=== PATIENT | male | born 1935 | race Caucasian/White ===

== ENCOUNTER 2018-02-17 15:22 | Observation (INO) | payer MEDICARE, SELFPAY ==
[2018-02-17] VITALS (12 sets, daily range): BP systolic 134–183; BP diastolic 54–73; PULSE 48–63; RESP 17–28; TEMP 36.7–37.5; O2SAT 94–100; BMI 25.2; BMI 23.9
--- NOTE | 2018-02-17 15:46 | EKG12_ITS ---
Test Reason : Blood Pressure : / mmHG Vent. Rate : 052 BPM Atrial Rate : 052 BPM P-R Int : 202 ms QRS Dur : 108 ms QT Int : 448 ms P-R-T Axes : 073 055 071 degrees QTc Int : 416 ms Sinus bradycardia with occasional Premature ventricular complexes Otherwise normal ECG Confirmed by BROCK GONZALEZ, YOLANDA ([id number]), supervising editor trailer JYOTI NIELSEN ([id number]) on 02/21/2018 1:17:04 PM Referred By: IKER/PAMELA Confirmed By:YOLANDA GUTIÉRREZ MD
--- NOTE | 2018-02-17 15:48 | ED.VISSUMM ---
- ER Visit Summary Date of Service: 02/17/18 Chief Complaint: Fatigue and generalized weakness History of Present Illness: The patient is a 82 M presenting with fatigue and generalized weakness. Patient states is been ongoing for the past 2 weeks but progressively worsening. He was seen by his primary care physician today who sent him to the ED for further evaluation. He complains of generalized weakness and fatigue. He has had decreased appetite. Denies nausea or vomiting. Admits to diarrhea with no blood in his stool. He admits to shortness of breath and nonproductive cough. Denies fever. Denies chest pain. He complains of lightheadedness with no syncope. No other complaints. Physical Examination: Vitals are stable. Heart rate 40s-50s. Patient is afebrile. Alert no acute distress. HEENT exam is unremarkable. Neck is supple. Lungs are clear and equal bilaterally. Heart is regular and bradycardic Abdomen is soft nontender nondistended. Extremities are unremarkable. Skin is warm and dry. No focal neurologic deficit. Remainder of exam is unremarkable. Emergency Department Course and Treatment: EKG sinus bradycardia rate of 52. Chest x-ray shows mild interstitial edema. CBC shows white count 2.0, hemoglobin 12.2, platelet 129. BUN 25, creatinine 1.34. Troponin is negative. Lactic acid is normal. Patient has dizziness along with heart rates in the 40s-50s. Discussed with the hospitalist for admission. Disposition: Admission Impression: Symptomatic bradycardia This note was generated with [employer] dictation software. It may contain incorrect words, spelling, and punctuation that were not noted in review of the chart prior to signing ED Disposition - Plan for ED Patient: Chief Complaint: General Illness Referrals: Jason Snider MD [Primary Care Provider] -
--- NOTE | 2018-02-17 15:50 | RAD_ITS ---
STUDY: X-RAY CHEST REASON FOR EXAM: Male, 82 years old. Fatigue and shortness of breath TECHNIQUE: AP portable COMPARISON: May 04, 2014 FINDINGS: There appears to be very mild pulmonary interstitial edema. There is asymmetrically increased density in the lower lobes possibly representing coexistent atelectasis or infiltrates. There is no demonstrated pleural abnormality. Heart is enlarged. Normal mediastinum and lul. Normal visualized pulmonary arteries. Normal visualized aortic arch and descending thoracic aorta. Postop change status post median sternotomy and CABG. Normal visualized thoracic spine. Normal visualized ribs, clavicles, and shoulders. There is no demonstrated abnormality of the visualized soft tissue structures of the upper abdomen. RAD/Chest 1 View (Portable) IMPRESSION: Findings suggestive of mild pulmonary interstitial edema. Cannot exclude bibasilar atelectasis or infiltrates Electronically Signed: Juan Rodarte MD at 16:28 EDT , Service support ,
[2018-02-17 16:18] LABS: Bacteria 0 SEEN /hpf (None Seen); Mucous, Urine 0 SEEN /hpf (<or=2+); White Blood Cells 0 SEEN /hpf (0-5)
[2018-02-17 16:22] LABS: Absolute Lymphocyte Count 0.48 X10^3/ul (0.83-4.51); Basophil# 0.01 X10^3/uL; Basophil% 0.5 % (0-1); Eosinophil# 0.09 X10^3/uL; Eosinophils% 4.5 % (0-5); Hematocrit 37.8 % (40-54); Hemoglobin 12.2 g/dl (13.0-16.5); Lymphocyte # 0.48 X10^3/ul (4.0); Lymphocyte % 23.8 % (19-41); Mean Corp Hgb Conc 32.3 g/gl (32-36); Mean Corpuscular Volume 95.9 fL (80-94); Mean Platelet Vol. 9.6 fl (6.2-12.0); Monocyte# 0.43 X10^3/uL; Monocyte% 21.3 % (0-10); Neutrophil # 1.01 X10^3/uL (2.7-7.7); Neutrophil % 49.9 % (47-70); Platelet Count 129 K/mm3 (150-450); RBC Distribution Width CV 13.8 % (11.6-14.6); RBC Distribution Width SD 46.3 fl (35.1-43.9); Red Blood Count 3.94 M/mm3 (4.6-6.2)
[2018-02-17 16:26] LABS: Color, Urine Yellow (Yellow); Glucose, Dipstick Normal (Normal); Ketone-Dipstick Negative (Negative); Leukocyte Esterase-Dipstick Negative /ul (Negative); Nitrite-Dipstick Negative (Negative); Occult Blood-Urine 10 /ul (Negative); Protein-Dipstick 30 mg/dl (Negative); Urine Bilirubin Dipstick Negative (Negative); Urine Clarity Sl. Cloudy (Clear); Urine Urobilinogen Normal (Normal)
[2018-02-17 16:29] LABS: Anion Gap 6 (5-15); BUN 25 mg/dL (7-18); BUN/Creat Ratio 18.7 RATIO (10-20); Calcium,Total 8.5 mg/dL (8.5-10.1); Chloride 105 mmol/L (98-107); Creatinine, Serum 1.34 mg/dL (0.70-1.30); EST Glomerular Filtration Rate 54 mL/min (>60); Est Glom Filt Rate - Afr Amer 66 mL/min (>60); Estimated Creatinine Clearance 45.27 ml/min; Glucose 95 mg/dL (74-106); Lactic Acid 1.2 mmol/L (0.4-2.0); Sodium Level 139 mmol/L (136-145)
[2018-02-17 16:30] LABS: Differential Indicated SCAN CRITERIA MET; POSITIVE COUNT NO; POSITIVE DIFFERENTIAL YES; POSITIVE MORPHOLOGY NO
[2018-02-17 16:47] LABS: Red Blood Cells-Urine 0-5 SEEN /hpf (0-5); Squamous Epithelial Cells - UA 0-5 SEEN /hpf (0-5)
[2018-02-17 16:51] LABS: Differential Comment SCANNED
--- NOTE | 2018-02-17 17:37 | PCM.HP.STD ---
Problem List (1) Prediabetes Status: Chronic (2) Hypothyroidism Status: Chronic (3) Chronic gout Status: Chronic (4) Psoriasis Status: Chronic (5) BPH (benign prostatic hyperplasia) Status: Chronic (6) Benign essential HTN Status: Chronic History of Present Illness Date of Admission: 02/17/18 Chief Complaint: Weakness, dyspnea on exertion. The patient is a 82 year old M who presents to the emergency room with generalized weakness and dyspnea on exertion. He presented to [facility] urgent care earlier today and was told he might have pneumonia. His heart rate was also noted to be in the 40s and his conductor and engineer Dr. Briscoe was made aware who referred patient to [facility] emergency room. Patient states he is very active and is typically able to walk a significant distance without any shortness of breath. He denies chest pain. States he has an occasional cough. He also notes a recent increase in headaches. Denies fever, chills. Denies numbness, tingling. Denies other associated symptoms. As previously noted, patient sees Dr. Jane, [facility] cardiology. He has a history of CAD s/p CABG in the and stent placement early 1999. He states he had a normal stress test last summer. His other past medical history includes hypertension, BPH, psoriatic arthritis, gout, hypothyroidism, reported prediabetes, status post bilateral carotid enterectomy, hyperlipidemia, GERD. Past Medical History Past Medical History (Chronic Problems): Chronic Problems Prediabetes (Chronic) Hypothyroidism (Chronic) Chronic gout (Chronic) Psoriasis (Chronic) BPH (benign prostatic hyperplasia) (Chronic) Benign essential HTN (Chronic) Allergies hyoscyamine [Hyoscyamine] Allergy (Verified 02/17/18 15:23) Other metronidazole Allergy (Verified 02/17/18 15:23) Unknown sesame oil Allergy (Verified 02/17/18 15:23) Other Sulfa (Sulfonamide Antibiotics) Allergy (Verified 02/17/18 15:23) Other sulfamethoxazole [From Bactrim] Allergy (Verified 02/17/18 15:23) Other tree nut [Tree Nut] Allergy (Verified 02/17/18 15:23) Other trimethoprim [From Bactrim] Allergy (Verified 02/17/18 15:23) Other CATS Allergy (Uncoded 04/30/14 10:09) Rash HAYFEVER Allergy (Uncoded 04/30/14 10:09) Other Home Medications: Ambulatory Orders Medication Instructions Recorded Allopurinol [Zyloprim] 300 mg PO DAILY 04/30/14 Aspirin [Aspirin, Baby] 81 mg PO DAILY@0800 04/30/14 Clopidogrel Bisulfate [Plavix] 75 mg PO DAILY 04/30/14 Famotidine [Pepcid] 20 mg PO DAILY 04/30/14 Finasteride [Proscar] 5 mg PO DAILY 04/30/14 Gabapentin [Neurontin] 300 mg PO DAILY 04/30/14 Levothyroxine Sodium [Levoxyl] 150 mcg PO DAILY 04/30/14 Lisinopril [Zestril] 20 mg PO DAILY 04/30/14 Loratadine [Claritin] 10 mg PO DAILY 04/30/14 Methotrexate 7.5 mg PO Q7D 04/30/14 Multivitamins,Therapeutic 1 tablet PO DAILY 04/30/14 [Multivitamin] [place]-3 Fatty Acids/Fish Oil [Fish 1 each PO DAILY 04/30/14 Oil 1,000 mg Capsule] Pravastatin [Pravachol] 40 mg PO QHS 04/30/14 Tamsulosin HCl [Flomax] 0.4 mg PO DAILY 04/30/14 Donepezil HCl [Aricept] 10 mg PO QHS 02/17/18 Fluticasone 0.05% [Flonase Nasal 2 spray NASAL DAILY 02/17/18 [place]] Nitroglycerin [Nitrostat] 0.4 mg SUBLINGUAL Q5M PRN 02/17/18 Polyethylene Glycol 3350 [Miralax] 17 gm PO DAILY PRN 02/17/18 Vits A,C,E/Lutein/Minerals 1 each PO 02/17/18 [Ocuvite with Lutein Tablet] Surgical History: angioplasty, coronary bypass surgery, tonsillectomy, TURP, - - Total right knee. Psychiatric History: No pertinent psych hx Lives: Spouse/ Significant Other Smoking Status: Never smoker Alcohol: None Drugs: None - *Family History Paternal History Items: Diabetes, Heart Disease Maternal History Items: No pertinent history Review of Systems Constitutional: Denies: Chills, Fever, Weight Change HEENT: Denies: Head Aches, Sinus Congestion, Sinus Drainage Cardiovascular: Denies: Chest Pain, Edema, Light Headedness, Palpitations, Syncope Respiratory: Reports: Cough, Shortness of breath upon exertion. Denies: Sputum production, Wheezing Gastrointestinal: Denies: Abdominal Pain, Nausea, Vomiting Genitourinary: Denies: Dysuria Musculoskeletal: Denies: Joint Pain, Joint Tenderness Skin: Denies: Rash, Wounds Neurological: Denies: Numbness, Tingling, Focal weakness Psychiatric: Denies: Anxiety, Depression, Homicidal Ideations, Suicidal Ideations Hematologic/ Lymphatic: Denies: Easy Bruising, Easy Bleeding VTE Information - Inpt Only VTE Present on Admission: No VTE Mechan Device Prophylaxis: SCD's VTE Pharm Prophylaxis ordered?: Yes - Physical Exam General: Alert, Oriented x3, Cooperative, No apparent distress HEENT: Atraumatic, PERRLA, EOMI, Normocephalic Neck: Supple, No JVD, Negative Carotid Bruits Lungs: Diminished, - - Crackles Cardiovascular: Regular Rhythm, Normal S1, Normal S2, No murmurs, Bradycardic Abdomen: Bowel Sounds Present, Soft, Non Tender, Non-Distended Extremities: No clubbing, No cyanosis, No edema, Capillary Refill Less than 3 Seconds Skin: No rashes, No breakdown Musculoskeletal: No Tenderness to Palpation of Joints or Extremities Neurological: Cranial nerves II-XII grossly intact, Neuro grossly intact Psych/Mental Status: Normal Affect, Appropriate Vital Signs Temp Pulse Resp BP Pulse Ox 98.1 F 53 L 27 H 164/72 H 96 02/17/18 17:18 02/17/18 17:18 02/17/18 17:18 02/17/18 17:18 02/17/18 17:18 Assessment/Plan 1. Generalized weakness/dyspnea on exertion-etiology unclear. Urinalysis unremarkable. Patient shows signs of mild dehydration. Gentle IV fluids. Troponin negative ?1. PT/OT. Obtain echocardiogram. Order nuclear stress test. 2. Bradycardia-unsure if presenting symptoms are related to bradycardia. Patient denies chest pain. Monitor telemetry. Trend enzymes. Stress test. Complete echocardiogram. 3. CAD status post CABG and PCI-follows with Dr. Jane, [facility]. Continue aspirin, statin, Plavix. 4. Mild elevated creatinine-creatinine 1.3 which appears to be patient's baseline. Gentle IV fluids. Monitor BMP. 5. Hypertension-elevated on admission, continue home lisinopril regimen. Continue to monitor. 6. Hyperlipidemia-continue statin. 7. BPH-continue home Flomax, Proscar regimen. 8. Hypothyroidism-continue home Synthroid regimen. Check TSH. 9. Status post bilateral carotid enterectomy-follows with Dr. Guevara as outpatient. Complete sincerely carotid duplex ultrasound. 10. Psoriatic arthritis-continue methotrexate. 11. GERD-continue famotidine. 12. Gout-continue home allopurinol regimen. 13. Reported prediabetes-no previous hemoglobin A1c documented. Check hemoglobin A1c. 14. Mild cognitive impairment-continue Aricept regimen. 15. Pulmonary fibrosis-as noted on prior CT April 2017. Follows with Dr. Mari as outpatient. Not on home inhaler regimen. Consult pulmonary. 16. Pancytopenia-etiology unclear. Monitor CBC. DVT prophylaxis-SCDs, heparin subcu. This patient was seen by BRIANDA Justice under the supervision of Dr. Crabtree.
--- NOTE | 2018-02-17 18:00 | ECHOD_ITS ---
Reason For Study: DYSPNEA/SOB Procedure This was a 2D Doppler, Color Flow transthoracic echocardiogram. Exam performed portable in patient room. Left Ventricle Normal LV size. Left ventricular systolic function is normal. The estimated ejection fraction is 60 %. No evidence for diastolic dysfunction. No regional wall motion abnormalities noted. Right Ventricle Normal RV size. Normal systolic function. Atria Normal left atrium. Normal right atrium. Mitral Valve Normal mitral valve. Mild (1+) eccentric mitral valve insufficiency. Tricuspid Valve Normal tricuspid valve. Mild (1+) tricuspid valve insufficiency. Pulmonary artery systolic pressure is 43 mmHg. Mild pulmonary hypertension. Aortic Valve Trisinus/trileaflet aortic valve. Mild focal aortic valve thickening. Pulmonic Valve Normal pulmonic valve. Great Vessels Normal aortic root. The pulmonary artery is normal size. Normal inferior vena cava. Pericardium/Pleural No pericardial effusion. MMode/2D Measurements & Calculations LVIDd: 5.1 cm IVSd: 1.1 cm LVOT diam: 2.0 cm LVIDs: 3.6 cm LVPWd: 1.1 cm LVOT area: 3.3 cm2 RVDd: 3.0 cm FS: 29.7 % Ao root diam: 2.8 cm LAV(MOD-bp): 83.9 ml LA A4 area: 25.1 cm2 LA dimension: 4.8 cm LAV(MOD-bp) Indexed: 42.3 ml/m2 LAV(MOD-sp2): 85.0 ml LAV(MOD-sp4): 82.3 ml RA A4 area: 12.7 cm2 Time Measurements MV dec time: 0.29 sec Doppler Measurements & Calculations MV E max mohan: 128.8 cm/sec Lat Peak E' Mohan: 8.4 cm/sec Med Peak E' Mohan: 6.3 cm/sec MV A max mohan: 103.5 cm/sec E/E' lat: 15.3 E/E' med: 20.6 MV E/A: 1.2 MV P1/2t max mohan: 138.6 cm/sec Ao V2 max: 209.7 cm/sec LV V1 max: 128.4 cm/sec MV P1/2t: 81.7 msec Ao max P.6 mmHg LV V1 max P.6 mmHg MV dec slope: 496.6 cm/sec2 Ao V2 mean: 133.0 cm/sec LV V1 mean P.0 mmHg MVA(P1/2t): 2.7 cm2 Ao mean P.1 mmHg LV V1 mean: 81.8 cm/sec Ao V2 VTI: 44.4 cm LV V1 VTI: 28.9 cm NELLI(I,D): 2.1 cm2 NELLI(V,D): 2.0 cm2 SV(LVOT): 94.1 ml PA V2 max: 105.3 cm/sec TR max mohan: 310.0 cm/sec TR max P.5 mmHg Interpretation Summary Normal LV size. Left ventricular systolic function is normal. The estimated ejection fraction is 60 %. No evidence for diastolic dysfunction. Pulmonary artery systolic pressure is 43 mmHg. Mild pulmonary hypertension. Ordering Physician: Milady Crabtree Referring Physician: Jason Snider M.D. Performed By: Samantha Couch, DEAN, RVT
[2018-02-17 18:36] LABS: T4 Free Direct 1.09 ng/dL (0.76-1.46); Thyroid Stim Hormone (TSH) 1.92 uIU/mL (0.358-3.74)
[2018-02-17 19:24] LABS: BNP,B-Type NATRIURETIC PEPTIDE 48.6 pg/mL (0-100)
--- NOTE | 2018-02-17 19:47 | CT_ITS ---
STUDY: CTA CHEST REASON FOR EXAM: Male, 82 years old. Short of breath and elevated d-dimer RADIATION DOSAGE (If Supplied By Facility): CTDIvol = ( 9.62 ) mGy, DLP = ( 336.54 ) mGycm TECHNIQUE: The examination was performed with the intravenous administration of 100ML ml of Isovue 370 contrast material. Post-processing of the angiographic images was performed, with multiplanar reformation and 3D reconstruction. Individualized dose optimization techniques were used for this CT. COMPARISON: None. FINDINGS: Normal enhancement of the main pulmonary artery and right and left pulmonary arteries. Normal enhancement of the bilateral peripheral pulmonary arteries. There is no demonstrated pulmonary embolism. Atherosclerotic changes of the aorta without evidence for aneurysm There is no demonstrated aortic dissection. The heart is enlarged and there is multivessel coronary artery calcification. Small subcentimeter hilar and mediastinal nodes Small calcified mediastinal nodes Normal visualized trachea and bronchi. The lungs are well expanded. Postop changes status post median sternotomy and CABG There is diffuse interstitial thickening throughout both lungs most severe in the mid and lower lung zones in association with focal areas of honeycombing.. There is also traction bronchiectasis in the lower lobes. There is a tiny 5 mm nodule in the right upper lobe of uncertain significance There is calcific pleural plaquing at the left lung base. There is no pleural effusion or pneumothorax. Dorsal spine demonstrates moderate spondylosis Small hiatal hernia is present. There are granulomatous calcifications in the spleen. There is tiny cyst in the right kidney CT/CTA Chest W/WO Contrast IMPRESSION: No evidence for pulmonary embolus Advanced chronic interstitial changes and superimposed ASHD.. Findings suggestive of old granulomatous disease. Electronically Signed: Juan Rodarte MD at 20:50 EDT , Service support ,
[2018-02-17] MEDS: Donepezil HCl 10 MG Tablet PO (21:35)
[2018-02-17] MEDS: 0.9% Normal Saline 1,000 ML 125 ML IV (21:35)
[2018-02-17] MEDS: Pravastatin 20 MG Tablet 40 MG PO (21:35)
[2018-02-18] VITALS (9 sets, daily range): BP systolic 138–158; BP diastolic 55–63; PULSE 47–66; RESP 16–28; TEMP 36.8–37.6; O2SAT 93–99
[2018-02-18] MEDS: 0.9% Normal Saline 1,000 ML 125 ML IV (04:05)
[2018-02-18] MEDS: Levothyroxine 150 MCG Tablet PO (05:38)
[2018-02-18] MEDS: Aspirin 81 MG TAB.CHEW PO (05:39)
[2018-02-18] MEDS: Clopidogrel Bisulfate 75 MG Tablet PO (05:39)
[2018-02-18] MEDS: Lisinopril 20 MG Tablet PO (05:46)
--- NOTE | 2018-02-18 05:55 | EKG12_ITS ---
Test Reason : MORNING EKG Blood Pressure : / mmHG Vent. Rate : 048 BPM Atrial Rate : 048 BPM P-R Int : 206 ms QRS Dur : 108 ms QT Int : 466 ms P-R-T Axes : 050 051 058 degrees QTc Int : 416 ms Sinus bradycardia with Premature atrial complexes Otherwise normal ECG When compared with ECG of 17-FEB-2018 15:23, MANUAL COMPARISON REQUIRED, DATA IS UNCONFIRMED Confirmed by BROCK GONZALEZ, YOLANDA ([id number]), health editor JYOTI NIELSEN ([id number]) on 02/21/2018 1:55:57 PM Referred By: DARWIN Confirmed By:YOLANDA GUTIÉRREZ MD
[2018-02-18 06:34] LABS: Hematocrit 37.4 % (40-54); Hemoglobin 12.2 g/dl (13.0-16.5); Mean Corp Hgb Conc 32.6 g/gl (32-36); Mean Corpuscular Hgb 31.1 pg (27.0-32.0); Mean Corpuscular Volume 95.4 fL (80-94); Mean Platelet Vol. 8.9 fl (6.2-12.0); Platelet Count 122 K/mm3 (150-450); RBC Distribution Width CV 13.6 % (11.6-14.6); RBC Distribution Width SD 45.1 fl (35.1-43.9); Red Blood Count 3.92 M/mm3 (4.6-6.2); White Blood Count 2.1 K/mm3 (4.4-11.0)
[2018-02-18 06:35] LABS: Scan Indicated on CBC? Y/N NO
[2018-02-18 06:38] LABS: Prothrombin Time (Protime)PT. 13.4 SECONDS (11.7-14.9)
[2018-02-18 06:49] LABS: Anion Gap 6 (5-15); BUN 21 mg/dL (7-18); BUN/Creat Ratio 17.1 RATIO (10-20); Calcium,Total 8.3 mg/dL (8.5-10.1); Chloride 107 mmol/L (98-107); Cholesterol 99 mg/dL (200); Creatinine, Serum 1.23 mg/dL (0.70-1.30); EST Glomerular Filtration Rate 60 mL/min (>60); Est Glom Filt Rate - Afr Amer 72 mL/min (>60); Estimated Creatinine Clearance 49.32 ml/min; Glucose 93 mg/dL (74-106); High Density Lipoprotein 41 mg/dL; Potassium 4.4 mmol/L (3.5-5.1); Sodium Level 139 mmol/L (136-145); Triglycerides 109 mg/dL; Very Low Density Lipoprotein 22 mg/dL (5-40)
--- NOTE | 2018-02-18 07:08 | PCM.CONS.GEN ---
Reason for Consult Date of Consultation: 02/18/18 Reason for Consultation: Pulmonary fibrosis History of Present Illness: The patient is an 82-year-old male, with a history as outlined below, who presented to the emergency department on February 17 with a history of progressive exertional dyspnea. The patient has been followed in the pulmonary medicine clinic by Dr. Mari previously. He was last seen by him in June 2017. Pulmonary function testing completed in May 2017 revealed evidence of a mild restrictive ventilatory impairment. 6 minute walk test completed at that time demonstrated a debi oxygen saturation of 90%. The patient reportedly has a known history of ANCA associated interstitial lung disease. He also has a known history of psoriatic arthritis and was treated previously with methotrexate. There was some discussion with the patient by Dr. Mari previously with regards to the need for potential VATS biopsy. He was also instructed to follow-up with a food bagging machine operator. On presentation to the emergency department, the patient was noted to be afebrile and bradycardic with heart rates in the 40s. He was hypertensive with blood pressures in the 170s. Despite this, the patient was maintaining appropriate oxygen saturations on room air. Initial laboratory evaluation revealed pancytopenia of unclear chronicity. Coagulation profile was within normal limits. A d-dimer was found to be elevated to 0.60. Chemistry profile revealed evidence of acute kidney injury with a creatinine 1.34. Serum lactate was within normal limits. Troponin was negative. BNP was unremarkable. Urinalysis was unremarkable. CTA chest was obtained and demonstrated no pulmonary embolism. There was evidence of bilateral lower lobe predominant fibrotic changes with increased reticular changes, honeycombing and traction bronchiectasis. It does appear to be affecting the right lung more so than left. Past Medical History Past Medical History (Chronic Problems): Chronic Problems Prediabetes (Chronic) Hypothyroidism (Chronic) Chronic gout (Chronic) Psoriasis (Chronic) BPH (benign prostatic hyperplasia) (Chronic) Benign essential HTN (Chronic) Allergies hyoscyamine [Hyoscyamine] Allergy (Verified 02/17/18 15:23) Other metronidazole Allergy (Verified 02/17/18 15:23) Unknown sesame oil Allergy (Verified 02/17/18 15:23) Other Sulfa (Sulfonamide Antibiotics) Allergy (Verified 02/17/18 15:23) Other sulfamethoxazole [From Bactrim] Allergy (Verified 02/17/18 15:23) Other tree nut [Tree Nut] Allergy (Verified 02/17/18 15:23) Other trimethoprim [From Bactrim] Allergy (Verified 02/17/18 15:23) Other CATS Allergy (Uncoded 04/30/14 10:09) Rash HAYFEVER Allergy (Uncoded 04/30/14 10:09) Other Home Medications: Ambulatory Orders Medication Instructions Recorded Allopurinol [Zyloprim] 300 mg PO DAILY 04/30/14 Aspirin [Aspirin, Baby] 81 mg PO DAILY@0800 04/30/14 Clopidogrel Bisulfate [Plavix] 75 mg PO DAILY 04/30/14 Famotidine [Pepcid] 20 mg PO DAILY 04/30/14 Finasteride [Proscar] 5 mg PO DAILY 04/30/14 Gabapentin [Neurontin] 300 mg PO DAILY 04/30/14 Levothyroxine Sodium [Levoxyl] 150 mcg PO DAILY 04/30/14 Lisinopril [Zestril] 20 mg PO DAILY 04/30/14 Loratadine [Claritin] 10 mg PO DAILY 04/30/14 Methotrexate 7.5 mg PO MO 04/30/14 Multivitamins,Therapeutic 1 tablet PO DAILY 04/30/14 [Multivitamin] [place]-3 Fatty Acids/Fish Oil [Fish 1 each PO DAILY 04/30/14 Oil 1,000 mg Capsule] Pravastatin [Pravachol] 40 mg PO QHS 04/30/14 Tamsulosin HCl [Flomax] 0.4 mg PO DAILY 04/30/14 Donepezil HCl [Aricept] 10 mg PO QHS 02/17/18 Fluticasone 0.05% [Flonase Nasal 2 spray NASAL DAILY 02/17/18 [place]] Nitroglycerin [Nitrostat] 0.4 mg SUBLINGUAL Q5M PRN 02/17/18 Polyethylene Glycol 3350 [Miralax] 17 gm PO DAILY PRN 02/17/18 Vits A,C,E/Lutein/Minerals 1 each PO DAILY 02/17/18 [Ocuvite with Lutein Tablet] Oseltamivir Phosphate [Tamiflu] 30 mg PO BID #10 cap 02/18/18 Surgical History: angioplasty, coronary bypass surgery, tonsillectomy, TURP, - - Total right knee. Psychiatric History: No pertinent psych hx Lives: Spouse/ Significant Other Smoking Status: Never smoker Alcohol: None Drugs: None - *Family History Paternal History Items: Diabetes, Heart Disease Maternal History Items: No pertinent history Review of Systems Constitutional: Denies: Chills, Fever Eyes: Denies: Blurred vision, Double vision HEENT: Denies: Head Aches, Sinus Congestion, Sinus Drainage Cardiovascular: Denies: Chest Pain, Palpitations Respiratory: Reports: Shortness of Breath. Denies: Sputum production, Wheezing Gastrointestinal: Denies: Abdominal Pain, Nausea, Vomiting Genitourinary: Denies: Dysuria Musculoskeletal: Denies: Joint Pain, Joint Tenderness Skin: Denies: Rash, Wounds Neurological: Denies: Numbness, Tingling, Focal weakness Psychiatric: Denies: Anxiety, Depression, Homicidal Ideations, Suicidal Ideations Hematologic/ Lymphatic: Denies: Easy Bruising, Easy Bleeding Objective: The patient's most recent lab work, culture data and imaging studies have all been personally reviewed. Prior echocardiogram from May 2017 revealed normal LV size and thickness with an ejection fraction of 65%. The patient did have evidence of mild pulmonary hypertension with a right ventricular systolic pressure estimated to be 43 mmHg. Respiratory viral panel is pending. - Physical Exam General: Alert, Cooperative, No apparent distress HEENT: Atraumatic, PERRLA, Normocephalic Oral: Moist Mucosa, No Gingival or Mucosal Lesions/ Ulcerations Neck: Supple, No Nodes, Trachea Midline Lungs: No rhonchi, No wheeze, Diminished, Rales Cardiovascular: Normal S1, Normal S2, Bradycardic, No rub noted, No Gallop Abdomen: Bowel Sounds Present, Soft, Non Tender Extremities: No clubbing, No cyanosis, No edema Skin: No rashes, No breakdown Musculoskeletal: No Muscle Wasting Lymphatic: No Cervical, Supraclavicular, or Inguinal Adenopathy Neurological: Neuro grossly intact Psych/Mental Status: Normal Affect, Appropriate Vital Signs Temp Pulse Resp BP Pulse Ox 99.1 F 48 L 24 H 142/59 H 96 02/18/18 05:33 02/18/18 05:33 02/18/18 05:33 02/18/18 05:33 02/18/18 05:33 Oxygen Delivery Method Room Air Weight: 174 lb Body Mass Index (BMI) 23.9 Intake and Output for Last 24 Hours 03/28/18 03/29/18 03/30/18 23:59 23:59 23:59 Intake Total 530 / 530 740 / 740 Balance 530 / 530 740 / 740 Laboratory Tests Past 24 Hrs 02/17/18 02/18/18 02/18/18 19:37 00:10 06:20 WBC 2.1 L RBC 3.92 L Hgb 12.2 L Hct 37.4 L MCV 95.4 H MCH 31.1 MCHC 32.6 RDW 13.6 RDW Differential 45.1 H Plt Count 122 L MPV 8.9 PT INR APTT Sodium Potassium Chloride Carbon Dioxide Anion Gap BUN Creatinine Estim Creat Clear Calc Est GFR (MDRD) Af Amer Est GFR (MDRD) Non-Af BUN/Creatinine Ratio Glucose Calcium Troponin I < 0.02 < 0.02 Triglycerides Cholesterol LDL Cholesterol VLDL Cholesterol HDL Cholesterol 02/18/18 02/18/18 06:20 06:20 WBC RBC Hgb Hct MCV MCH MCHC RDW RDW Differential Plt Count MPV PT 13.4 INR 1.0 APTT 31.0 Sodium 139 Potassium 4.4 Chloride 107 Carbon Dioxide 26.0 Anion Gap 6 BUN 21 H Creatinine 1.23 Estim Creat Clear Calc 49.32 Est GFR (MDRD) Af Amer 72 Est GFR (MDRD) Non-Af 60 BUN/Creatinine Ratio 17.1 Glucose 93 Calcium 8.3 L Troponin I < 0.02 Triglycerides 109 Cholesterol 99 LDL Cholesterol 36 VLDL Cholesterol 22 HDL Cholesterol 41 Clinical Impression(s) from Imaging Studies Chest X-Ray 02/17/18 15:50 IMPRESSION: Findings suggestive of mild pulmonary interstitial edema. Cannot exclude bibasilar atelectasis or infiltrates Electronically Signed: Juan Rodarte MD at 16:28 EDT , Service support , Chest CTA 02/17/18 19:47 IMPRESSION: No evidence for pulmonary embolus Advanced chronic interstitial changes and superimposed ASHD.. Findings suggestive of old granulomatous disease. Electronically Signed: Juan Rodarte MD at 20:50 EDT , Service support , Assessment/Plan RECOMMENDATIONS: 1. Continue Tamiflu to complete a 5 day treatment course. 2. The patient should keep his outpatient follow-up with Dr. Mari as scheduled. 3. Cardiology workup is underway 4. Send autoimmune/vasculitis workup 5. Encourage incentive spirometer use while in bed and mobilize patient as tolerated 6. Perform walking oximetry study prior to consideration for discharge from the hospital IMPRESSIONS: 1. Exertional dyspnea Likely multifactorial in etiology with baseline interstitial lung disease with superimposed influenza infection contributing. Patient is currently maintaining appropriate oxygen saturations on room air. Would recommend treatment for his underlying influenza infection with Tamiflu ?5 days. Cardiac workup is currently underway. Repeat CTA obtained at the time of admission did reveal chronic, baseline chronic interstitial changes. The patient should keep his follow-up appointment with Dr. Mari as scheduled. No additional inpatient pulmonary workup is indicated at this time. 2. Influenza B URI Continue Tamiflu ?5 days. 3. Coronary artery disease status post CABG/hypertension/hyperlipidemia/hypothyroidism/psoriatic arthritis Complicates care, management, recovery and prognosis. Defer cardiac workup and management to cardiology accordingly. Continue home medications as indicated. This note was generated with [employer] dictation software. It may contain incorrect words, spelling, and punctuation that were not noted in checking the note before signing. Code Visit Inpatient E&M: 50599 Init Hosp L2
--- NOTE | 2018-02-18 07:26 | CON.PCM_ITS ---
Reason for Consult Date of Consultation: 02/18/18 Reason for Consultation: Pulmonary fibrosis History of Present Illness: The patient is an 82-year-old male, with a history as outlined below, who presented to the emergency department on February 17 with a history of progressive exertional dyspnea. The patient has been followed in the pulmonary medicine clinic by Dr. Mari previously. He was last seen by him in June 2017. Pulmonary function testing completed in May 2017 revealed evidence of a mild restrictive ventilatory impairment. 6 minute walk test completed at that time demonstrated a debi oxygen saturation of 90%. The patient reportedly has a known history of ANCA associated interstitial lung disease. He also has a known history of psoriatic arthritis and was treated previously with methotrexate. There was some discussion with the patient by Dr. Mari previously with regards to the need for potential VATS biopsy. He was also instructed to follow-up with a producer assistant. On presentation to the emergency department, the patient was noted to be afebrile and bradycardic with heart rates in the 40s. He was hypertensive with blood pressures in the 170s. Despite this, the patient was maintaining appropriate oxygen saturations on room air. Initial laboratory evaluation revealed pancytopenia of unclear chronicity. Coagulation profile was within normal limits. A d-dimer was found to be elevated to 0.60. Chemistry profile revealed evidence of acute kidney injury with a creatinine 1.34. Serum lactate was within normal limits. Troponin was negative. BNP was unremarkable. Urinalysis was unremarkable. CTA chest was obtained and demonstrated no pulmonary embolism. There was evidence of bilateral lower lobe predominant fibrotic changes with increased reticular changes, honeycombing and traction bronchiectasis. It does appear to be affecting the right lung more so than left. Past Medical History Past Medical History (Chronic Problems): Chronic Problems Prediabetes (Chronic) Hypothyroidism (Chronic) Chronic gout (Chronic) Psoriasis (Chronic) BPH (benign prostatic hyperplasia) (Chronic) Benign essential HTN (Chronic) Allergies hyoscyamine [Hyoscyamine] Allergy (Verified 02/17/18 15:23) Other metronidazole Allergy (Verified 02/17/18 15:23) Unknown sesame oil Allergy (Verified 02/17/18 15:23) Other Sulfa (Sulfonamide Antibiotics) Allergy (Verified 02/17/18 15:23) Other sulfamethoxazole [From Bactrim] Allergy (Verified 02/17/18 15:23) Other tree nut [Tree Nut] Allergy (Verified 02/17/18 15:23) Other trimethoprim [From Bactrim] Allergy (Verified 02/17/18 15:23) Other CATS Allergy (Uncoded 04/30/14 10:09) Rash HAYFEVER Allergy (Uncoded 04/30/14 10:09) Other Home Medications: Ambulatory Orders Medication Instructions Recorded Allopurinol [Zyloprim] 300 mg PO DAILY 04/30/14 Aspirin [Aspirin, Baby] 81 mg PO DAILY@0800 04/30/14 Clopidogrel Bisulfate [Plavix] 75 mg PO DAILY 04/30/14 Famotidine [Pepcid] 20 mg PO DAILY 04/30/14 Finasteride [Proscar] 5 mg PO DAILY 04/30/14 Gabapentin [Neurontin] 300 mg PO DAILY 04/30/14 Levothyroxine Sodium [Levoxyl] 150 mcg PO DAILY 04/30/14 Lisinopril [Zestril] 20 mg PO DAILY 04/30/14 Loratadine [Claritin] 10 mg PO DAILY 04/30/14 Methotrexate 7.5 mg PO MO 04/30/14 Multivitamins,Therapeutic 1 tablet PO DAILY 04/30/14 [Multivitamin] [place]-3 Fatty Acids/Fish Oil [Fish 1 each PO DAILY 04/30/14 Oil 1,000 mg Capsule] Pravastatin [Pravachol] 40 mg PO QHS 04/30/14 Tamsulosin HCl [Flomax] 0.4 mg PO DAILY 04/30/14 Donepezil HCl [Aricept] 10 mg PO QHS 02/17/18 Fluticasone 0.05% [Flonase Nasal 2 spray NASAL DAILY 02/17/18 [place]] Nitroglycerin [Nitrostat] 0.4 mg SUBLINGUAL Q5M PRN 02/17/18 Polyethylene Glycol 3350 [Miralax] 17 gm PO DAILY PRN 02/17/18 Vits A,C,E/Lutein/Minerals 1 each PO DAILY 02/17/18 [Ocuvite with Lutein Tablet] Oseltamivir Phosphate [Tamiflu] 30 mg PO BID #10 cap 02/18/18 Surgical History: angioplasty, coronary bypass surgery, tonsillectomy, TURP, - - Total right knee. Psychiatric History: No pertinent psych hx Lives: Spouse/ Significant Other Smoking Status: Never smoker Alcohol: None Drugs: None - *Family History Paternal History Items: Diabetes, Heart Disease Maternal History Items: No pertinent history Review of Systems Constitutional: Denies: Chills, Fever Eyes: Denies: Blurred vision, Double vision HEENT: Denies: Head Aches, Sinus Congestion, Sinus Drainage Cardiovascular: Denies: Chest Pain, Palpitations Respiratory: Reports: Shortness of Breath. Denies: Sputum production, Wheezing Gastrointestinal: Denies: Abdominal Pain, Nausea, Vomiting Genitourinary: Denies: Dysuria Musculoskeletal: Denies: Joint Pain, Joint Tenderness Skin: Denies: Rash, Wounds Neurological: Denies: Numbness, Tingling, Focal weakness Psychiatric: Denies: Anxiety, Depression, Homicidal Ideations, Suicidal Ideations Hematologic/ Lymphatic: Denies: Easy Bruising, Easy Bleeding Objective: The patient's most recent lab work, culture data and imaging studies have all been personally reviewed. Prior echocardiogram from May 2017 revealed normal LV size and thickness with an ejection fraction of 65%. The patient did have evidence of mild pulmonary hypertension with a right ventricular systolic pressure estimated to be 43 mmHg. Respiratory viral panel is pending. - Physical Exam General: Alert, Cooperative, No apparent distress HEENT: Atraumatic, PERRLA, Normocephalic Oral: Moist Mucosa, No Gingival or Mucosal Lesions/ Ulcerations Neck: Supple, No Nodes, Trachea Midline Lungs: No rhonchi, No wheeze, Diminished, Rales Cardiovascular: Normal S1, Normal S2, Bradycardic, No rub noted, No Gallop Abdomen: Bowel Sounds Present, Soft, Non Tender Extremities: No clubbing, No cyanosis, No edema Skin: No rashes, No breakdown Musculoskeletal: No Muscle Wasting Lymphatic: No Cervical, Supraclavicular, or Inguinal Adenopathy Neurological: Neuro grossly intact Psych/Mental Status: Normal Affect, Appropriate Vital Signs Temp Pulse Resp BP Pulse Ox 99.1 F 48 L 24 H 142/59 H 96 02/18/18 05:33 02/18/18 05:33 02/18/18 05:33 02/18/18 05:33 02/18/18 05:33 Oxygen Delivery Method Room Air Weight: 174 lb Body Mass Index (BMI) 23.9 Intake and Output for Last 24 Hours 03/28/18 03/29/18 03/30/18 23:59 23:59 23:59 Intake Total 530 / 530 740 / 740 Balance 530 / 530 740 / 740 Laboratory Tests Past 24 Hrs 02/17/18 02/18/18 02/18/18 19:37 00:10 06:20 WBC 2.1 L RBC 3.92 L Hgb 12.2 L Hct 37.4 L MCV 95.4 H MCH 31.1 MCHC 32.6 RDW 13.6 RDW Differential 45.1 H Plt Count 122 L MPV 8.9 PT INR APTT Sodium Potassium Chloride Carbon Dioxide Anion Gap BUN Creatinine Estim Creat Clear Calc Est GFR (MDRD) Af Amer Est GFR (MDRD) Non-Af BUN/Creatinine Ratio Glucose Calcium Troponin I < 0.02 < 0.02 Triglycerides Cholesterol LDL Cholesterol VLDL Cholesterol HDL Cholesterol 02/18/18 02/18/18 06:20 06:20 WBC RBC Hgb Hct MCV MCH MCHC RDW RDW Differential Plt Count MPV PT 13.4 INR 1.0 APTT 31.0 Sodium 139 Potassium 4.4 Chloride 107 Carbon Dioxide 26.0 Anion Gap 6 BUN 21 H Creatinine 1.23 Estim Creat Clear Calc 49.32 Est GFR (MDRD) Af Amer 72 Est GFR (MDRD) Non-Af 60 BUN/Creatinine Ratio 17.1 Glucose 93 Calcium 8.3 L Troponin I < 0.02 Triglycerides 109 Cholesterol 99 LDL Cholesterol 36 VLDL Cholesterol 22 HDL Cholesterol 41 Clinical Impression(s) from Imaging Studies Chest X-Ray 02/17/18 15:50 IMPRESSION: Findings suggestive of mild pulmonary interstitial edema. Cannot exclude bibasilar atelectasis or infiltrates Electronically Signed: Juan Rodarte MD at 16:28 EDT , Service support , Chest CTA 02/17/18 19:47 IMPRESSION: No evidence for pulmonary embolus Advanced chronic interstitial changes and superimposed ASHD.. Findings suggestive of old granulomatous disease. Electronically Signed: Juan Rodarte MD at 20:50 EDT , Service support , Assessment/Plan RECOMMENDATIONS: 1. Continue Tamiflu to complete a 5 day treatment course. 2. The patient should keep his outpatient follow-up with Dr. Mari as scheduled. 3. Cardiology workup is underway 4. Send autoimmune/vasculitis workup 5. Encourage incentive spirometer use while in bed and mobilize patient as tolerated 6. Perform walking oximetry study prior to consideration for discharge from the hospital IMPRESSIONS: 1. Exertional dyspnea Likely multifactorial in etiology with baseline interstitial lung disease with superimposed influenza infection contributing. Patient is currently maintaining appropriate oxygen saturations on room air. Would recommend treatment for his underlying influenza infection with Tamiflu ?5 days. Cardiac workup is currently underway. Repeat CTA obtained at the time of admission did reveal chronic, baseline chronic interstitial changes. The patient should keep his follow-up appointment with Dr. Mari as scheduled. No additional inpatient pulmonary workup is indicated at this time. 2. Influenza B URI Continue Tamiflu ?5 days. 3. Coronary artery disease status post CABG/hypertension/hyperlipidemia/ hypothyroidism/psoriatic arthritis Complicates care, management, recovery and prognosis. Defer cardiac workup and management to cardiology accordingly. Continue home medications as indicated. This note was generated with [employer] dictation software. It may contain incorrect words, spelling, and punctuation that were not noted in checking the note before signing. Code Visit Inpatient E&M: 13320 Init Hosp L2
[2018-02-18] MEDS: Multivitamins,Therapeutic Tablet 1 TABLET PO (09:14)
[2018-02-18] MEDS: Tamsulosin HCl 0.4 MG Capsule PO (09:15)
[2018-02-18] MEDS: Gabapentin 300 MG Capsule PO (09:15)
[2018-02-18] MEDS: Allopurinol 300 MG Tablet PO (09:15)
[2018-02-18] MEDS: Loratadine 10 MG Tablet PO (09:15)
[2018-02-18] MEDS: Famotidine 20 MG Tablet PO (09:16)
[2018-02-18] MEDS: Finasteride 5 MG Tablet PO (09:16)
[2018-02-18] MEDS: 0.9% NaCl Peripheral Flush Adult/Peds IV (09:18)
--- NOTE | 2018-02-18 09:34 | STRESSREP ---
Stress Test Report Pharmacologic myocardial perfusion stress test. 82-year-old man with a history of chest pain. Stress protocol: Resting EKG demonstrates sinus bradycardia with a rate of 45 bpm normal intervals and noted resting blood pressure is 160/78 mmHg. 0.4 mg of regadenoson was infused per usual protocol followed by rapid intravenous saline flush injection continuous EKG monitoring was performed. The maximum heart rate attained was 57 bpm which was 41% of the maximum predicted heart rate the maximum workload was 1 metabolic equivalent. At rest there were no ST or T-wave changes noted to suggest abnormal flow reserve at peak infusion no ST or T-wave changes were noted to suggest abnormal flow reserve. Myocardial perfusion protocol. 11.6 mCi of technetium 99m sestamibi was injected at rest. 0.4 mg of regadenoson was infused per usual protocol. At peak infusion 34.3 mCi of technetium 99m sestamibi was injected. Stress images were obtained stress and rest images were reconstructed and compared in the short axis vertical long and horizontal long axis. Gated images were also obtained pre- Perfusion SPECT analysis. Review of the images demonstrate normal uptake of tracer noted in the septum most of the anterior wall of the lateral wall and the inferior wall. The distal anterior wall and apex has mildly reduced perfusion. This is present on the stress and resting images to a similar extent and notes possible previous infarct. No ischemia is noted. Gated SPECT analysis: The gated ejection fraction is 66%. Conclusion: Normal pharmacologic myocardial perfusion stress test. Preserved ejection fraction.
--- NOTE | 2018-02-18 09:38 | STRESSREP_ITS ---
Stress Test Report Pharmacologic myocardial perfusion stress test. 82-year-old man with a history of chest pain. Stress protocol: Resting EKG demonstrates sinus bradycardia with a rate of 45 bpm normal intervals and noted resting blood pressure is 160/78 mmHg. 0.4 mg of regadenoson was infused per usual protocol followed by rapid intravenous saline flush injection continuous EKG monitoring was performed. The maximum heart rate attained was 57 bpm which was 41% of the maximum predicted heart rate the maximum workload was 1 metabolic equivalent. At rest there were no ST or T- wave changes noted to suggest abnormal flow reserve at peak infusion no ST or T- wave changes were noted to suggest abnormal flow reserve. Myocardial perfusion protocol. 11.6 mCi of technetium 99m sestamibi was injected at rest. 0.4 mg of regadenoson was infused per usual protocol. At peak infusion 34.3 mCi of technetium 99m sestamibi was injected. Stress images were obtained stress and rest images were reconstructed and compared in the short axis vertical long and horizontal long axis. Gated images were also obtained pre- Perfusion SPECT analysis. Review of the images demonstrate normal uptake of tracer noted in the septum most of the anterior wall of the lateral wall and the inferior wall. The distal anterior wall and apex has mildly reduced perfusion. This is present on the stress and resting images to a similar extent and notes possible previous infarct. No ischemia is noted. Gated SPECT analysis: The gated ejection fraction is 66%. Conclusion: Normal pharmacologic myocardial perfusion stress test. Preserved ejection fraction.
[2018-02-18 09:56] LABS: Rheumatoid Factor < 10.0 IU/mL (<15)
--- NOTE | 2018-02-18 11:24 | PCM.DC ---
You will use the following diet at home:: Cardiac Discharge Activity: Return to Normal Activity Call your doctor if you observe: Shortness of breath, Dizziness, Fainting spells, Chest pain, Increased palpitations (irregular heartbeat) Allergies/Adverse Reactions: Allergies hyoscyamine [Hyoscyamine] Allergy (Verified 02/17/18 15:23) Other metronidazole Allergy (Verified 02/17/18 15:23) Unknown sesame oil Allergy (Verified 02/17/18 15:23) Other Sulfa (Sulfonamide Antibiotics) Allergy (Verified 02/17/18 15:23) Other sulfamethoxazole [From Bactrim] Allergy (Verified 02/17/18 15:23) Other tree nut [Tree Nut] Allergy (Verified 02/17/18 15:23) Other trimethoprim [From Bactrim] Allergy (Verified 02/17/18 15:23) Other CATS Allergy (Uncoded 04/30/14 10:09) Rash HAYFEVER Allergy (Uncoded 04/30/14 10:09) Other Medications to take at Discharge Allopurinol [Zyloprim] 300 mg PO DAILY 04/30/14 Aspirin [Aspirin, Baby] 81 mg PO DAILY@0800 04/30/14 Clopidogrel Bisulfate [Plavix] 75 mg PO DAILY 04/30/14 Famotidine [Pepcid] 20 mg PO DAILY 04/30/14 Finasteride [Proscar] 5 mg PO DAILY 04/30/14 Gabapentin [Neurontin] 300 mg PO DAILY 04/30/14 Levothyroxine Sodium [Levoxyl] 150 mcg PO DAILY 04/30/14 Lisinopril [Zestril] 20 mg PO DAILY 04/30/14 Loratadine [Claritin] 10 mg PO DAILY 04/30/14 Methotrexate 7.5 mg PO MO 04/30/14 Multivitamins,Therapeutic [Multivitamin] 1 tablet PO DAILY 04/30/14 [place]-3 Fatty Acids/Fish Oil [Fish Oil 1,000 mg Capsule] 1 each PO DAILY 04/30/14 Pravastatin [Pravachol] 40 mg PO QHS 04/30/14 Tamsulosin HCl [Flomax] 0.4 mg PO DAILY 04/30/14 Donepezil HCl [Aricept] 10 mg PO QHS 02/17/18 Fluticasone 0.05% [Flonase Nasal [place]] 2 spray NASAL DAILY 02/17/18 Nitroglycerin [Nitrostat] 0.4 mg SUBLINGUAL Q5M PRN 02/17/18 Polyethylene Glycol 3350 [Miralax] 17 gm PO DAILY PRN 02/17/18 Vits A,C,E/Lutein/Minerals [Ocuvite with Lutein Tablet] 1 each PO DAILY 02/17/18 Oseltamivir Phosphate [Tamiflu] 30 mg PO BID #10 cap 02/18/18 The following prescriptions were given: Oseltamivir Phosphate [Tamiflu] 30 mg PO BID #10 cap Primary Care Physician: Jason Snider MD [Primary Care Provider] - Please follow up with your Primary Care Physician in: 1 Week Please Follow Up With: Kenan Mari MD When: As scheduled in February. Please Follow Up With: Stanley Jane MD When: 1-2 Weeks Proposed Discharge Date: 02/18/18
--- NOTE | 2018-02-18 11:27 | DCINST_ITS ---
You will use the following diet at home:: Cardiac Discharge Activity: Return to Normal Activity Call your doctor if you observe: Shortness of breath, Dizziness, Fainting spells , Chest pain, Increased palpitations (irregular heartbeat) Allergies/Adverse Reactions: Allergies hyoscyamine [Hyoscyamine] Allergy (Verified 02/17/18 15:23) Other metronidazole Allergy (Verified 02/17/18 15:23) Unknown sesame oil Allergy (Verified 02/17/18 15:23) Other Sulfa (Sulfonamide Antibiotics) Allergy (Verified 02/17/18 15:23) Other sulfamethoxazole [From Bactrim] Allergy (Verified 02/17/18 15:23) Other tree nut [Tree Nut] Allergy (Verified 02/17/18 15:23) Other trimethoprim [From Bactrim] Allergy (Verified 02/17/18 15:23) Other CATS Allergy (Uncoded 04/30/14 10:09) Rash HAYFEVER Allergy (Uncoded 04/30/14 10:09) Other Medications to take at Discharge Allopurinol [Zyloprim] 300 mg PO DAILY 04/30/14 Aspirin [Aspirin, Baby] 81 mg PO DAILY@0800 04/30/14 Clopidogrel Bisulfate [Plavix] 75 mg PO DAILY 04/30/14 Famotidine [Pepcid] 20 mg PO DAILY 04/30/14 Finasteride [Proscar] 5 mg PO DAILY 04/30/14 Gabapentin [Neurontin] 300 mg PO DAILY 04/30/14 Levothyroxine Sodium [Levoxyl] 150 mcg PO DAILY 04/30/14 Lisinopril [Zestril] 20 mg PO DAILY 04/30/14 Loratadine [Claritin] 10 mg PO DAILY 04/30/14 Methotrexate 7.5 mg PO MO 04/30/14 Multivitamins,Therapeutic [Multivitamin] 1 tablet PO DAILY 04/30/14 [place]-3 Fatty Acids/Fish Oil [Fish Oil 1,000 mg Capsule] 1 each PO DAILY Pravastatin [Pravachol] 40 mg PO QHS 04/30/14 Tamsulosin HCl [Flomax] 0.4 mg PO DAILY 04/30/14 Donepezil HCl [Aricept] 10 mg PO QHS 02/17/18 Fluticasone 0.05% [Flonase Nasal [place]] 2 spray NASAL DAILY 02/17/18 Nitroglycerin [Nitrostat] 0.4 mg SUBLINGUAL Q5M PRN 02/17/18 Polyethylene Glycol 3350 [Miralax] 17 gm PO DAILY PRN 02/17/18 Vits A,C,E/Lutein/Minerals [Ocuvite with Lutein Tablet] 1 each PO DAILY Oseltamivir Phosphate [Tamiflu] 30 mg PO BID #10 cap 02/18/18 The following prescriptions were given: Oseltamivir Phosphate [Tamiflu] 30 mg PO BID #10 cap Primary Care Physician: Jason Snider MD [Primary Care Provider] - Please follow up with your Primary Care Physician in: 1 Week Please Follow Up With: Kenan Mari MD When: As scheduled in February. Please Follow Up With: Stanley Jane MD When: 1-2 Weeks Proposed Discharge Date: 02/18/18
--- NOTE | 2018-02-18 11:28 | PCM.DC.SUM ---
Discharge Date and Diagnosis Date of Admission: 02/17/18 Date of Discharge: 02/18/18 - Primary Discharge Diagnosis 1. Acute influenza B-associated dyspnea, weakness 2. Bradycardia, mild 3. Pancytopenia 4. Pulmonary fibrosis 5. CAD status post CABG and PCI 6. Hypertension 7. Hyperlipidemia - Secondary Discharge Diagnosis Chronic Problems Prediabetes (Chronic) Hypothyroidism (Chronic) Chronic gout (Chronic) Psoriasis (Chronic) BPH (benign prostatic hyperplasia) (Chronic) Benign essential HTN (Chronic) GERD Mild cognitive impairment Hospital Course and Treatment Imaging Results: Diagnostic Data Chest X-Ray 02/17/18 15:50 IMPRESSION: Findings suggestive of mild pulmonary interstitial edema. Cannot exclude bibasilar atelectasis or infiltrates Electronically Signed: Juan Rodarte MD at 16:28 EDT , Service support , Chest CTA 02/17/18 19:47 IMPRESSION: No evidence for pulmonary embolus Advanced chronic interstitial changes and superimposed ASHD.. Findings suggestive of old granulomatous disease. Electronically Signed: Juan Rodarte MD at 20:50 EDT , Service support , Dr. Grider- Pulmonary Operations: None Procedures: 2-D Echocardiogram, Stress test Summary of Care Provided: The patient is a 82 year old M admitted 02/17/2018 due to weakness, dyspnea on exertion. He was found to have acute influenza B. He has a past medical history CAD s/p CABG in the and stent placement early 1999, hypertension, BPH, psoriatic arthritis, gout, hypothyroidism, reported prediabetes, status post bilateral carotid enterectomy, hyperlipidemia, GERD. Given patient's cardiac history and noted bradycardia on admission with a heart rate 40s-50s, patient did undergo nuclear stress test which was negative for ischemia. Troponin negative. EKG without evidence of ischemia. Chest x-ray unremarkable. Echocardiogram completed and pending. Will be reviewed prior to discharge. Patient was started on Tamiflu and will complete a 5 day course. Suspect symptoms of weakness and dyspnea are related to acute influenza B as opposed to mild bradycardia. He also has underlying lung disease. Pulmonary was consulted during admission. Chest CTA showed no evidence for pulmonary embolism, advanced chronic interstitial changes and superimposed ASHD, findings suggestive of old granulomatous disease. Patient follows with Dr. Mari as outpatient. He has an upcoming follow-up appointment in February. Patient also follows with Dr. Briscoe, [facility] cardiology who he will continue outpatient follow-up with. He is not on any rate control medications to contribute to bradycardia. He was noted to have pancytopenia and recommend further outpatient evaluation as outlined by primary care physician. Also recommend outpatient follow-up with patient's chocolate temperer. He denies chest pain. Vitals stable. General: Alert, Oriented x3, Cooperative, No apparent distress HEENT: Atraumatic, PERRLA, EOMI, Normocephalic Neck: Supple, No JVD, Negative Carotid Bruits Lungs: Diminished, clear Cardiovascular: Regular Rhythm, Normal S1, Normal S2, No murmurs, Bradycardic Abdomen: Bowel Sounds Present, Soft, Non Tender, Non-Distended Extremities: No clubbing, No cyanosis, No edema, Capillary Refill Less than 3 Seconds Skin: No rashes, No breakdown Musculoskeletal: No Tenderness to Palpation of Joints or Extremities Neurological: Cranial nerves II-XII grossly intact, Neuro grossly intact Psych/Mental Status: Normal Affect, Appropriate Patient seen and examined prior to discharge. Physical assessment as noted above. Patient is stable for discharge home with recommendations as noted above. This patient was seen by BRIANDA Justice under the supervision of Dr. Mcdaniel. Discharge Diet: Low fat/ Low Cholesterol Discharge Activity: Return to Normal Activity Call your doctor if you observe: Shortness of breath, Dizziness, Fainting spells, Chest pain, Increased palpitations (irregular heartbeat) Home Medications: Medications to take at Discharge Allopurinol [Zyloprim] 300 mg PO DAILY 04/30/14 Aspirin [Aspirin, Baby] 81 mg PO DAILY@0800 04/30/14 Clopidogrel Bisulfate [Plavix] 75 mg PO DAILY 04/30/14 Famotidine [Pepcid] 20 mg PO DAILY 04/30/14 Finasteride [Proscar] 5 mg PO DAILY 04/30/14 Gabapentin [Neurontin] 300 mg PO DAILY 04/30/14 Levothyroxine Sodium [Levoxyl] 150 mcg PO DAILY 04/30/14 Lisinopril [Zestril] 20 mg PO DAILY 04/30/14 Loratadine [Claritin] 10 mg PO DAILY 04/30/14 Methotrexate 7.5 mg PO MO 04/30/14 Multivitamins,Therapeutic [Multivitamin] 1 tablet PO DAILY 04/30/14 [place]-3 Fatty Acids/Fish Oil [Fish Oil 1,000 mg Capsule] 1 each PO DAILY 04/30/14 Pravastatin [Pravachol] 40 mg PO QHS 04/30/14 Tamsulosin HCl [Flomax] 0.4 mg PO DAILY 04/30/14 Donepezil HCl [Aricept] 10 mg PO QHS 02/17/18 Fluticasone 0.05% [Flonase Nasal [place]] 2 spray NASAL DAILY 02/17/18 Nitroglycerin [Nitrostat] 0.4 mg SUBLINGUAL Q5M PRN 02/17/18 Polyethylene Glycol 3350 [Miralax] 17 gm PO DAILY PRN 02/17/18 Vits A,C,E/Lutein/Minerals [Ocuvite with Lutein Tablet] 1 each PO DAILY 02/17/18 Oseltamivir Phosphate [Tamiflu] 30 mg PO BID #10 cap 02/18/18 Following Prescrptions Were Given to Patient: Oseltamivir Phosphate [Tamiflu] 30 mg PO BID #10 cap Primary Care Physician: Jason Snider MD [Primary Care Provider] - Please follow up with your Primary Care Physician in: 1 Week Please Follow Up With: Kenan Mari MD When: As scheduled in February. Please Follow Up With: Stanley Jane MD When: 1-2 Weeks Disposition: Home Minutes spent on discharge:: 35 Patient Condition:: Stable Medical Necessity - Tobacco Use Smoking Status: Never smoker Meaningful Use Info Meaningful Use Diagnoses (Choose all that apply): None applicable
--- NOTE | 2018-02-18 11:38 | DS.PCM_ITS ---
Discharge Date and Diagnosis Date of Admission: 02/17/18 Date of Discharge: 02/18/18 - Primary Discharge Diagnosis 1. Acute influenza B-associated dyspnea, weakness 2. Bradycardia, mild 3. Pancytopenia 4. Pulmonary fibrosis 5. CAD status post CABG and PCI 6. Hypertension 7. Hyperlipidemia - Secondary Discharge Diagnosis Chronic Problems Prediabetes (Chronic) Hypothyroidism (Chronic) Chronic gout (Chronic) Psoriasis (Chronic) BPH (benign prostatic hyperplasia) (Chronic) Benign essential HTN (Chronic) GERD Mild cognitive impairment Hospital Course and Treatment Imaging Results: Diagnostic Data Chest X-Ray 02/17/18 15:50 IMPRESSION: Findings suggestive of mild pulmonary interstitial edema. Cannot exclude bibasilar atelectasis or infiltrates Electronically Signed: Juan Rodarte MD at 16:28 EDT , Service support , Chest CTA 02/17/18 19:47 IMPRESSION: No evidence for pulmonary embolus Advanced chronic interstitial changes and superimposed ASHD.. Findings suggestive of old granulomatous disease. Electronically Signed: Juan Rodarte MD at 20:50 EDT , Service support , Dr. Grider- Pulmonary Operations: None Procedures: 2-D Echocardiogram, Stress test Summary of Care Provided: The patient is a 82 year old M admitted 02/17/2018 due to weakness, dyspnea on exertion. He was found to have acute influenza B. He has a past medical history CAD s/p CABG in the and stent placement early 1999, hypertension, BPH, psoriatic arthritis, gout, hypothyroidism, reported prediabetes, status post bilateral carotid enterectomy, hyperlipidemia, GERD. Given patient's cardiac history and noted bradycardia on admission with a heart rate 40s-50s, patient did undergo nuclear stress test which was negative for ischemia. Troponin negative. EKG without evidence of ischemia. Chest x-ray unremarkable. Echocardiogram completed and pending. Will be reviewed prior to discharge. Patient was started on Tamiflu and will complete a 5 day course. Suspect symptoms of weakness and dyspnea are related to acute influenza B as opposed to mild bradycardia. He also has underlying lung disease. Pulmonary was consulted during admission. Chest CTA showed no evidence for pulmonary embolism, advanced chronic interstitial changes and superimposed ASHD, findings suggestive of old granulomatous disease. Patient follows with Dr. Mari as outpatient. He has an upcoming follow-up appointment in February. Patient also follows with Dr. Briscoe, [facility] cardiology who he will continue outpatient follow- up with. He is not on any rate control medications to contribute to bradycardia. He was noted to have pancytopenia and recommend further outpatient evaluation as outlined by primary care physician. Also recommend outpatient follow-up with patient's edge dyer. He denies chest pain. Vitals stable. General: Alert, Oriented x3, Cooperative, No apparent distress HEENT: Atraumatic, PERRLA, EOMI, Normocephalic Neck: Supple, No JVD, Negative Carotid Bruits Lungs: Diminished, clear Cardiovascular: Regular Rhythm, Normal S1, Normal S2, No murmurs, Bradycardic Abdomen: Bowel Sounds Present, Soft, Non Tender, Non-Distended Extremities: No clubbing, No cyanosis, No edema, Capillary Refill Less than 3 Seconds Skin: No rashes, No breakdown Musculoskeletal: No Tenderness to Palpation of Joints or Extremities Neurological: Cranial nerves II-XII grossly intact, Neuro grossly intact Psych/Mental Status: Normal Affect, Appropriate Patient seen and examined prior to discharge. Physical assessment as noted above. Patient is stable for discharge home with recommendations as noted above. This patient was seen by BRIANDA Justice under the supervision of Dr. Mcdaniel. Discharge Diet: Low fat/ Low Cholesterol Discharge Activity: Return to Normal Activity Call your doctor if you observe: Shortness of breath, Dizziness, Fainting spells , Chest pain, Increased palpitations (irregular heartbeat) Home Medications: Medications to take at Discharge Allopurinol [Zyloprim] 300 mg PO DAILY 04/30/14 Aspirin [Aspirin, Baby] 81 mg PO DAILY@0800 04/30/14 Clopidogrel Bisulfate [Plavix] 75 mg PO DAILY 04/30/14 Famotidine [Pepcid] 20 mg PO DAILY 04/30/14 Finasteride [Proscar] 5 mg PO DAILY 04/30/14 Gabapentin [Neurontin] 300 mg PO DAILY 04/30/14 Levothyroxine Sodium [Levoxyl] 150 mcg PO DAILY 04/30/14 Lisinopril [Zestril] 20 mg PO DAILY 04/30/14 Loratadine [Claritin] 10 mg PO DAILY 04/30/14 Methotrexate 7.5 mg PO MO 04/30/14 Multivitamins,Therapeutic [Multivitamin] 1 tablet PO DAILY 04/30/14 [place]-3 Fatty Acids/Fish Oil [Fish Oil 1,000 mg Capsule] 1 each PO DAILY Pravastatin [Pravachol] 40 mg PO QHS 04/30/14 Tamsulosin HCl [Flomax] 0.4 mg PO DAILY 04/30/14 Donepezil HCl [Aricept] 10 mg PO QHS 02/17/18 Fluticasone 0.05% [Flonase Nasal [place]] 2 spray NASAL DAILY 02/17/18 Nitroglycerin [Nitrostat] 0.4 mg SUBLINGUAL Q5M PRN 02/17/18 Polyethylene Glycol 3350 [Miralax] 17 gm PO DAILY PRN 02/17/18 Vits A,C,E/Lutein/Minerals [Ocuvite with Lutein Tablet] 1 each PO DAILY Oseltamivir Phosphate [Tamiflu] 30 mg PO BID #10 cap 02/18/18 Following Prescrptions Were Given to Patient: Oseltamivir Phosphate [Tamiflu] 30 mg PO BID #10 cap Primary Care Physician: Jason Snider MD [Primary Care Provider] - Please follow up with your Primary Care Physician in: 1 Week Please Follow Up With: Kenan Mari MD When: As scheduled in February. Please Follow Up With: Stanley Jane MD When: 1-2 Weeks Disposition: Home Minutes spent on discharge:: 35 Patient Condition:: Stable Medical Necessity - Tobacco Use Smoking Status: Never smoker Meaningful Use Info Meaningful Use Diagnoses (Choose all that apply): None applicable
[2018-02-21 14:07] LABS: Cytoplasmic Ab (C-ANCA) <1:20 titer (Neg:<1:20)
[2018-02-22 15:31] LABS: ANTINUCLEAR ANTIBODIES DIRECT Negative (Negative)
[2018-02-22 15:54] LABS: CCP IgG Antibodies 6 units (0-19); Perinuclear Ab (P-ANCA) <1:20 titer (Neg:<1:20)
== END 2018-02-18 11:26 | disposition home or self-care (01) ==
LOC: ED 17:06 → PCU 17:34
PROVIDERS: Internal Medicine Critical Care Medicine; Admitting Provider Family Medicine; Emergency Provider Emergency Medicine; Family Provider Internal Medicine; PCP Internal Medicine; Visit Provider Internal Medicine
DX: J10.1 Influenza due to other identified influenza virus with other respiratory manifestations (principal); D61.818 Other pancytopenia; J84.10 Pulmonary fibrosis, unspecified; I25.10 Atherosclerotic heart disease of native coronary artery without angina pectoris; M10.9 Gout, unspecified; K21.9 Gastro-esophageal reflux disease without esophagitis; N40.0 Benign prostatic hyperplasia without lower urinary tract symptoms; G31.84 Mild cognitive impairment of uncertain or unknown etiology; E03.9 Hypothyroidism, unspecified; I10 Essential (primary) hypertension; E78.5 Hyperlipidemia, unspecified; R00.1 Bradycardia, unspecified; R73.03 Prediabetes; L40.50 Arthropathic psoriasis, unspecified; Z79.899 Other long term (current) drug therapy; Z79.82 Long term (current) use of aspirin; Z79.02 Long term (current) use of antithrombotics/antiplatelets; Z95.1 Presence of aortocoronary bypass graft; R06.09 Other forms of dyspnea; R19.7 Diarrhea, unspecified; R94.4 Abnormal results of kidney function studies; E86.0 Dehydration; I27.20 Pulmonary hypertension, unspecified; I08.1 Rheumatic disorders of both mitral and tricuspid valves; N28.1 Cyst of kidney, acquired; R42 Dizziness and giddiness; N17.9 Acute kidney failure, unspecified
CPT/HCPCS: 36415; 71045; 71275; 78452; 80048; 80061; 81001; 83605; 83735; 83880; 84439; 84443; 84484; 85025; 85027; 85379; 85610; 85730; 86038; 86200; 86225; 86235; 86256; 86431; 87633; 93005; 93017; 93306; 96360; 96361; 99218; 99285; A9500; J7030; Q9967; A4216; G0378; J2785

== ENCOUNTER → 2018-03-15 13:00 | Outpatient (CLI) | payer MEDICARE, SELFPAY ==
--- NOTE | 2018-03-15 13:02 | CDU_ITS ---
Reason For Study: carotid stenosis Rt. Velocities/BP Lt. Velocities/BP Prox CCA 69.2/12.9 cm/sec. Prox CCA 68.6/14.1 cm/sec. Mid CCA 72.1/12.3 cm/sec. Mid CCA 74.5/15.8 cm/sec. Dist CCA 52.8/11.7 cm/sec. Dist CCA 154/21.6 cm/sec. Prox ICA 55.7/12.3 cm/sec. Prox ICA 86.8/14.1 cm/sec. Mid ICA 74.5/21.1 cm/sec. Mid ICA 87.9/17.6 cm/sec. Dist ICA 98.5/25.2 cm/sec. Dist ICA 63.8/13.9 cm/sec. Rt. ICA/CCA = 1.4. Lt. ICA/CCA = 1.2. Prox ECA 80.3/6.45 cm/sec. Prox ECA 149/12.8 cm/sec. Rt. Vert. 63.3/16.4 cm/sec. Lt. Vert. 78.0/19.9 cm/sec. Right Extracranial There is homogeneous, smooth atherosclerotic plaque noted in the right common carotid artery. There is homogeneous, smooth atherosclerotic plaque noted in the right internal carotid artery. There is homogeneous, smooth atherosclerotic plaque noted in the right external carotid artery. Antegrade flow is noted in the right vertebral artery. Left Extracranial There is heterogeneous, irregular atherosclerotic plaque noted in the left common carotid artery. There is heterogeneous, irregular atherosclerotic plaque noted in the left internal carotid artery. There is heterogeneous, irregular atherosclerotic plaque noted in the left external carotid artery. Antegrade flow is noted in the left vertebral artery. Procedure Carotid Duplex [id number]. The exam was diagnostic. Exam performed in department. Interpretation Summary Widely patent post-operative changes right carotid bulb/internal carotid with <50% stenosis. 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 Normal flow right external carotid Mild disease left external carotid Patent and antegrade vertebrals bilaterally. Ordering Physician: Rush Guevara Performed By: Yo Khan Jaxson
== END ==
PROVIDERS: Family Provider Internal Medicine; PCP Internal Medicine; Visit Provider Surgery
DX: I65.23 Occlusion and stenosis of bilateral carotid arteries (principal)
CPT/HCPCS: 93880

== ENCOUNTER → 2018-04-07 07:50 | Outpatient (CLI) | payer MEDICARE, SELFPAY ==
--- NOTE | 2018-04-07 14:03 | PFTCOMP ---
COMPLETE PULMONARY FUNCTION TEST INTERPRETATION Brief HPI: Patient is an 82 year old male, currently under the care of myself, who presents to [facility] for complete pulmonary function tests secondary to diagnosis of interstitial lung disease. Respiratory therapist reports good effort and reproducible results. Interpretation: Forced expiration spirometry shows no large airways obstructive ventilatory defect with an FEV1 of 75% predicted. There is no significant bronchodilator response by ATS criteria. Spirograms are of good quality and plateau normally. The respiratory flow volume loop shows a normal pattern. Lung volumes by body plethysmography show a decreased total lung capacity at 4.32 L, 63% predicted. All other lung volumes are reduced symmetrically. Diffusion capacity by carbon monoxide is normal at 71% predicted. The airway resistance is elevated. Compared to previous pulmonary function tests from 06/10/2017, there has been a significant reduction in total lung capacity. Impression: Moderate restrictive ventilatory defect with preserved diffusion capacity consistent with patient's diagnosis of interstitial lung disease. There has been worsening compared to previous study.
== END ==
PROVIDERS: Family Provider Internal Medicine; PCP Internal Medicine; Visit Provider Internal Medicine Critical Care Medicine
DX: J84.9 Interstitial pulmonary disease, unspecified (principal); J47.9 Bronchiectasis, uncomplicated; I27.20 Pulmonary hypertension, unspecified
CPT/HCPCS: 94060; 94726; 94729

== ENCOUNTER → 2019-04-26 | Outpatient (CLI) | payer MEDICARE, SELFPAY ==
[2019-04-21 10:06] VITALS: BMI 24.3
[2019-04-26 10:27] VITALS: PULSE 47; PULSE 51; PULSE 62; PULSE 72; PULSE 73; PULSE 74; O2SAT 89; O2SAT 90; O2SAT 91; O2SAT 94; O2SAT 95; O2SAT 96
--- NOTE | 2019-04-26 13:07 | PCM.PSN.6M ---
PSN 6 Minute Walk Test - 6 Minute Walk Test 6 Minute Walk Test: 6 Minute Walk Test PSN:6-Minute Walk Test Start: 04/26/19 10:27 Freq: Status: Active Protocol: RESP.6MINW Document 04/26/19 10:27 [email or web address] (Rec: 04/26/19 10:29 MYLES [id number]) 6 Minute Walk Test Date Performed 04/26/19 Time Performed 10:00 Height 6 ft Weight: 175 lb Weight in Pounds 175.[address]: Anna Marie Whittington Assistive device used: None Pre-test Oxygen Delivery Method Room Air Pulse Ox (%) 96 Pulse Rate (60-100 beats/min) 47 L Dyspnea Kartik Scale (0-10) 0 Exertion Kartik Scale (6-20) 6 1st minute Oxygen Delivery Method Room Air Pulse Ox (%) 95 Pulse Rate (60-100 beats/min) 62 2nd minute Oxygen Delivery Method Room Air Pulse Ox (%) 94 Pulse Rate (60-100 beats/min) 72 3rd minute Oxygen Delivery Method Room Air Pulse Ox (%) 89 Pulse Rate (60-100 beats/min) 73 4th minute Oxygen Delivery Method Room Air Pulse Ox (%) 90 Pulse Rate (60-100 beats/min) 74 5th minute Oxygen Delivery Method Room Air Pulse Ox (%) 91 Pulse Rate (60-100 beats/min) 72 6th minute Oxygen Delivery Method Room Air Pulse Ox (%) 89 Pulse Rate (60-100 beats/min) 74 Dyspnea Kartik Scale (0-10) 0 Exertion Kartik Scale (6-20) 11 Post-test Oxygen Delivery Method Room Air Pulse Ox (%) 95 Pulse Rate (60-100 beats/min) 51 L Full Laps Walked 22 Partial Lap, Number of Tiles Walked 12 Total Distance Walked (ft) 1310 - Interpretation Interpretation: The patient ambulated 1310 feet over the course of 6 minutes beginning on room air without assistive devices or breaks. Pretesting oxygen saturation was noted to be 96% on room air. With ambulation, the debi oxygen saturation was 89%. This represents a significant exertional oxygen desaturation. - Recommendations Recommendations: There is no indication for the use of supplemental oxygen at this time. However, close interval follow-up is recommended, given the degree of oxygen desaturation noted during this study.
== END | disposition home or self-care (01) ==
LOC: PSN 09:56
PROVIDERS: Family Provider Internal Medicine; PCP Internal Medicine; Referring Provider Nurse Practitioner Acute Care; Visit Provider Nurse Practitioner Acute Care
DX: R06.09 Other forms of dyspnea (principal)
CPT/HCPCS: 94618

== ENCOUNTER → 2019-04-28 09:55 | Outpatient (CLI) | payer MEDICARE, SELFPAY ==
[2019-04-21 10:06] VITALS: BMI 24.3
--- NOTE | 2019-04-28 11:59 | PFT ---
INTRODUCTION: The patient is an 83-year-old male that presents for pulmonary function studies secondary to a diagnosis of dyspnea. Respiratory therapy reports good patient effort. Bronchodilators were used during testing. INTERPRETATION: Forced expiration spirometry demonstrates no evidence of a large airways obstructive ventilatory defect. There was no significant response to aerosolized bronchodilators. Spirograms are of good quality and plateau normally. Body plethysmography was performed and reveals a decreased TLC to 4.5 L, 71% of predicted, indicative of a mild restrictive ventilatory defect. The remainder of the lung volumes are symmetrically reduced. Diffusing capacity by single breath CO is within normal limits at 73% of predicted. IMPRESSION: Isolated mild restrictive ventilatory impairment.
== END ==
PROVIDERS: Family Provider Internal Medicine; PCP Internal Medicine; Referring Provider Nurse Practitioner Acute Care; Visit Provider Nurse Practitioner Acute Care
DX: R06.09 Other forms of dyspnea (principal)
CPT/HCPCS: 94060; 94726; 94729

== ENCOUNTER → 2019-05-08 08:30 | Outpatient (CLI) | payer MEDICARE, SELFPAY ==
[2019-05-04 11:06] VITALS: BMI 24.1
--- NOTE | 2019-05-08 09:00 | PET_ITS ---
EXAMINATION: FDG PET-CT BRAIN INDICATIONS: An 83-year-old male with history of cognitive impairment, memory loss. COMPARISON EXAMINATION: None available. TECHNIQUE: Following the intravenous administration of 9.35 mCi of F-18 deoxyglucose via the left antecubital fossa, multiplanar image acquisitions of the brain obtained at 60 minutes post radiopharmaceutical administration reveal: SERUM GLUCOSE LEVEL: 86 mg/dl. HEIGHT: 71 inches. WEIGHT: 172 lbs FINDINGS: 1. Qualitative, visual analysis demonstrates relatively symmetric and preserved glucose metabolism noted in the bilateral frontal, occipital, temporal and parietal lobes of the cerebral cortex. There is relative symmetric visualization of basal ganglia and cerebellar hemispheres. 2. Quantitative analysis utilizing [employer] software demonstrates statistically significant alterations in glucose metabolism manifest in the bilateral parietal and temporal cerebral cortex with maximal alterations in Z-score noted to be -3.83 in the left mid temporal cortex, -4.43 involving the left superior parietal cortex. PET/PET Brain Metabolic Eval IMPRESSION: 1. 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 (Brenda, Molecular Imaging and Biology 4:239, 2004). Electronic Signature Mat Mojica D.O. Electronically Signed: Mat Mojica DO at 23:51 EDT Tel , Service support ,
== END ==
PROVIDERS: Family Provider Internal Medicine; PCP Internal Medicine; Referring Provider Psychiatry & Neurology Neurology; Visit Provider Psychiatry & Neurology Neurology
DX: F03.90 Unspecified dementia, unspecified severity, without behavioral disturbance, psychotic disturbance, mood disturbance, and anxiety (principal); Z00.6 Encounter for examination for normal comparison and control in clinical research program
CPT/HCPCS: 78608; A9552

== ENCOUNTER → 2019-07-13 12:53 | Outpatient (CLI) | payer MEDICARE, SELFPAY ==
[2019-07-12 14:08] VITALS: BMI 24.5
== END ==
PROVIDERS: Family Provider Internal Medicine; PCP Internal Medicine; Referring Provider Internal Medicine Cardiovascular Disease; Visit Provider Internal Medicine Cardiovascular Disease
DX: R00.1 Bradycardia, unspecified (principal)
CPT/HCPCS: 93225; 93226

== ENCOUNTER → 2019-08-30 10:28 | Outpatient (CLI) | payer MEDICARE, SELFPAY ==
[2019-07-12 14:08] VITALS: BMI 24.5
--- NOTE | 2019-08-30 10:32 | RAD_ITS ---
STUDY: X-RAY - PELVIS REASON FOR EXAM: Male, 83 years old. Arthritis TECHNIQUE: One view of the pelvis was obtained. COMPARISON: None. FINDINGS: There is a non-specific bowel gas pattern. Atherosclerotic vascular calcifications. The pelvis ring is intact without a fracture, osteolytic or blastic bone lesion. Mild to moderate degenerative narrowing of the sacroiliac joints without sclerosis or obvious erosion. Normal visualized bilateral superior and inferior pubic rami. Mild degenerative narrowing of the symphysis pubis. Normal ischial tuberosities. Normal visualized right femoral head. Normal right acetabulum. There is mild articular joint space narrowing of the right hip. Normal visualized left femoral head. Normal left acetabulum. There is mild articular joint space narrowing of the left hip. RAD/Pelvis 1 or 2 Views IMPRESSION: A intact pelvis and hips without fracture, osteolytic or blastic bone lesion. Mild degenerative narrowing of the sacroiliac joints, symphysis pubis and hips bilaterally. Electronically Signed: Augustina Ordoñez MD at 21:16 EDT , Service support ,
[2019-08-30 12:36] LABS: Erythrocyte Sedimentation Rate 8 mm/hr (0-20)
[2019-08-30 12:39] LABS: Absolute Lymphocyte Count 0.54 X10^3/uL (0.83-4.51); Absolute Neutrophil Count 5.3 X10^3/uL (2.0-7.7); Basophil# 0.04 X10^3/uL; Basophil% 0.6 % (0-1); Eosinophil# 0.33 X10^3/uL; Eosinophils% 4.8 % (0-5); Hematocrit 43.3 % (40-54); Lymphocyte # 0.54 X10^3/ul (4.0); Lymphocyte % 7.9 % (19-41); Mean Corp Hgb Conc 32.3 g/dL (32-36); Mean Corpuscular Volume 98.9 fL (80-94); Mean Platelet Vol. 9.8 fl (6.2-12.0); Monocyte# 0.59 X10^3/uL; Monocyte% 8.7 % (0-10); NRBC Flagged by Analyzer 0 % (0-5); Neutrophil % 77.7 % (47-70); POSITIVE DIFFERENTIAL YES; Platelet Count 221 K/mm3 (150-450); RBC Distribution Width CV 13.1 % (11.6-14.6); RBC Distribution Width SD 46.7 fl (35.1-43.9); Red Blood Count 4.38 M/mm3 (4.6-6.2); White Blood Count 6.8 K/mm3 (4.4-11.0)
[2019-08-30 12:40] LABS: Differential Indicated SCAN CRITERIA MET
[2019-08-30 12:54] LABS: AST(SGOT) 23 U/L (15-37); Alanine Aminotransfer ALT/SGPT 29 U/L (16-61); Albumin, Serum 3.8 g/dL (3.2-5.0); Alkaline Phosphatase 111 U/L (45-117); Anion Gap 8 (5-15); BUN 17 mg/dL (7-18); BUN/Creat Ratio 13.2 RATIO (10-20); CRP < 2.90 mg/L (0.0-3.0); Calcium,Total 9.8 mg/dL (8.5-10.1); Chloride 100 mmol/L (98-107); Creatinine, Serum 1.29 mg/dL (0.70-1.30); EST Glomerular Filtration Rate 56 mL/min (>60); Est Glom Filt Rate - Afr Amer 68 mL/min (>60); Globulin 3.8 g/dL (2.2-4.2); Glucose 138 mg/dL (74-106); Potassium 4.4 mmol/L (3.5-5.1); Protein, Total 7.6 g/dL (6.4-8.2); Rheumatoid Factor < 10.0 IU/mL (<15); Sodium Level 139 mmol/L (136-145)
[2019-08-30 13:38] LABS: Hepatitis B Surface Antibody Non-Reactive; Hepatitis B Surface Antigen Non-Reactive (Nonreactive); Hepatitis C Antibody Non-Reactive (Nonreactive)
[2019-09-04 17:32] LABS: CCP IgG Antibodies 9 units (0-19); HLA B27 Positive (.); Hepatitis B Core AB IgM Negative (Negative)
== END ==
PROVIDERS: Family Provider Internal Medicine; PCP Internal Medicine; Referring Provider Internal Medicine Rheumatology; Visit Provider Internal Medicine Rheumatology
DX: L40.59 Other psoriatic arthropathy (principal); L40.8 Other psoriasis; M19.041 Primary osteoarthritis, right hand; M19.042 Primary osteoarthritis, left hand; M21.40 Flat foot [pes planus] (acquired), unspecified foot; H35.30 Unspecified macular degeneration
CPT/HCPCS: 36415; 72170; 80053; 81374; 85025; 85652; 86140; 86200; 86431; 86705; 86706; 86803; 87340

== ENCOUNTER → 2019-09-07 09:05 | Outpatient (CLI) | payer MEDICARE, SELFPAY ==
[2019-07-12 14:08] VITALS: BMI 24.5
[2019-08-31 08:49] VITALS: BMI 24.5
--- NOTE | 2019-09-07 09:08 | US_ITS ---
STUDY: ABDOMINAL ULTRASOUND - RIGHT UPPER QUADRANT REASON FOR VISIT: Male, 83 years old elevated liver enzymes. TECHNIQUE: Ultrasound evaluation of the right upper quadrant was performed with real-time and static aranda-scale imaging. COMPARISON: None. FINDINGS: Liver: The liver measures 14.0 cm. There is normal echogenicity of the liver. The bile ducts are within normal limits. There is hepatic color flow. The direction of portal flow is hepatopetal. There is no demonstrated mass lesion. The periphery of the liver is obscured by shadowing from the patient's ribs and bowel gas. Gallbladder: Normal distended gallbladder. The gallbladder wall measures 2.8 mm. There is a negative sonographic Arita's sign. There is no pericholecystic fluid. There are no gallstones. Common Bile Duct (C.B.D.): The common bile duct measures 4 mm. Pancreas: Obscured by bowel gas. Right Kidney: Normal size of the right kidney. The right kidney measures 10.5 x 4.7 x 5.5 cm. Normal renal cortex. The right cortex measures 1.7 cm. There is no demonstrated renal mass or cyst. There is no right hydronephrosis. US/Liver IMPRESSION: No acute findings. No etiology for abnormal LFTs identified. Pancreas and portions of the liver are obscured by bowel gas. Electronically Signed: Soto Guerra, at 4:30 EDT Tel , Service support ,
== END ==
PROVIDERS: Family Provider Internal Medicine; PCP Internal Medicine; Referring Provider Internal Medicine Rheumatology; Visit Provider Internal Medicine Rheumatology
DX: L40.59 Other psoriatic arthropathy (principal); L40.8 Other psoriasis; M19.041 Primary osteoarthritis, right hand; M21.40 Flat foot [pes planus] (acquired), unspecified foot; H35.30 Unspecified macular degeneration
CPT/HCPCS: 76705

== ENCOUNTER 2020-01-23 11:50 | Inpatient (IN) | payer MEDICARE, SELFPAY ==
[2020-01-12 10:52] VITALS: BMI 25.2
[2020-01-23] VITALS (9 sets, daily range): BP systolic 117–144; BP diastolic 57–76; PULSE 59–64; RESP 16–18; TEMP 36.5–36.9; O2SAT 93–99; BMI 23.4
--- NOTE | 2020-01-23 12:10 | ART_ITS ---
Reason For Study: Ulcer Procedure A bilateral lower extremity continuous wave Doppler with analog waveform analysis,segmental pressures,and ankle brachial indexes without exercise. Left Segmental Pressures Left brachial= 108mmHg. Left posterior tibial artery = 105mmHg. Left dorsalis pedis artery = 100mmHg. Left digit = 41 mmHg. The left dorsalis pedis waveforms are biphasic. The left posterior tibial artery waveforms are biphasic. Right Segmental Pressures Right brachial= 110mmHg. Right posterior tibial artery = 130mmHg. Right dorsalis pedis artery = 129mmHg. Right digit = 37 mmHg. The right dorsalis pedis waveforms are biphasic. The right posterior tibial artery waveforms are biphasic. Indices The right ankle brachial index by the dorsalis pedis is 1.17. The right ankle brachial index by the posterior tibial artery is 1.18. The right digital-brachial index is 0.34. The left ankle brachial index by the dorsalis pedis is 0.91. The left ankle brachial index by the posterior tibial artery is 0.95. The left digital-brachial index is 0.37. Interpretation Summary Normal right lower extremity ankle-brachial indices however Doppler waveforms are biphasic at the posterior tibial and dorsalis pedis suggesting moderately severe disease. Significantly abnormal right digital brachial indices and PPG waveforms Abnormal left ankle-brachial indices and Doppler waveforms which are biphasic suggesting moderately severe occlusive disease. Significantly abnormal left digital brachial indices and PPG waveforms Ordering Physician: Travis Aceves Referring Physician: Jason Snider M.D. Performed By: Marisela Mckeon RVT
--- NOTE | 2020-01-23 12:51 | PN_ITS ---
Reason for Visit: Medical management for right 5th toe gangrene/abscess Subjective: Consult for medical management: 84-year-old male with multiple comorbidities including CAD status post CABG, status post stents, status post pacemaker, carotid artery disease status post bilateral carotid endarterectomy who comes in with complaints of right foot pain and swelling ongoing for months. Patient is a direct admit from Dr. Aceves's office. He is undergoing work-up for right toe gangrene possible surgery this afternoon. Denied any fever or chills or dizziness or palpitations or chest pain. He feels relatively well. Denied any diarrhea or nausea or abdominal pain. He is fairly active. He does not use any assistive device. Lives at home with his . Vitals/I&O's: Vital Signs Temp Pulse Resp BP Pulse Ox 97.7 F L 62 18 120/61 95 01/23/20 12:11 01/23/20 12:11 01/23/20 12:11 01/23/20 12:11 01/23/20 12:11 Oxygen Delivery Method Room Air Weight: 78.381 kg Body Mass Index (BMI) 23.4 General: Alert, Oriented x3, Cooperative, No apparent distress HEENT: Atraumatic, PERRLA, EOMI, Normocephalic Oral: Moist Mucosa Neck: Supple Lungs: Clear to auscultation, Normal air movement Cardiovascular: Regular rate, Regular Rhythm, Normal S1, Normal S2, Murmur - 3/6 holosystolic murmur Abdomen: Bowel Sounds Present, Soft, Non Tender, Non-Distended, No Hepato- splenomegaly Extremities: No edema, Tenderness - dark discoloration of right 5th toe, swollen, tender to touch Musculoskeletal: No Tenderness to Palpation of Joints or Extremities Lymphatic: No Cervical, Supraclavicular, or Inguinal Adenopathy Neurological: Cranial nerves II-XII grossly intact, Neuro grossly intact Psych/Mental Status: Normal Affect, Appropriate Current Medications Sodium Chloride () 250 mls @ 15 mls/hr IV .[id number] PRN PRN Reason: Saline Flush Sodium Chloride () 250 mls @ 15 mls/hr IV .[id number] PRN PRN Reason: Additional IVPB Infusion Sodium Chloride () 10 - 40 ml IV UD PRN PRN Reason: SALINE FLUSH STROKE Vital Signs/Narrative: Vital Signs Temp Pulse Resp BP Pulse Ox 01/23/20 12:11 97.7 F L 62 18 120/61 95 Medical Necessity - Tobacco Use Smoking Status: Never smoker Assessment/Plan All Active Problems (Last Reviewed 08/31/19 @ 08:49 by Ada Shafer) Esophageal reflux (Acute) Internal hemorrhoids (Resolved) 1. Right fifth toe gangrene/osteomyelitis, no reported history of DM or trauma Podiatry intends to send patient for amputation. PVRs/Dopplers planned today. No active cardiac complaints. Patient is fairly active. ACS NSQIP risk calculator shows below average for planned procedure -see risk calculator in his chart. 2. CAD status post CABG, status post stent(2010), no active cardiac complaints EKG today shows junctional rhythm, no acute ST-T changes We will hold off on aspirin and Plavix 3. History of bilateral carotid endarterectomy, will hold off on aspirin, Plavix and statin for now Resume statin after surgery when patient is not n.p.o. 4. Cognitive impairment; patient is a poor historian, continue on Aricept 5. BPH, continue on Proscar and Flomax 6. Hypertension, controlled, will hold off on lisinopril for now on account of possible volume status changes during surgery Will have hydralazine as needed for systolic more than 160 We will resume lisinopril postoperatively when blood pressures are better and renal function is also improved 7. Hypothyroidism, continue levothyroxine 8. DVT prophylaxis -per podiatry primary team Code Visit Inpatient E&M: 92809 Subs Hosp L2
--- NOTE | 2020-01-23 12:52 | EKG12_ITS ---
Test Reason : Blood Pressure : / mmHG Vent. Rate : 060 BPM Atrial Rate : 058 BPM P-R Int : 000 ms QRS Dur : 100 ms QT Int : 414 ms P-R-T Axes : 000 016 059 degrees QTc Int : 414 ms Junctional rhythm Abnormal ECG When compared with ECG of 18-FEB-2018 05:00, Junctional rhythm has replaced Sinus rhythm Confirmed by BROCK GONZALEZ, YOLANDA ([id number]), health editor JYOTI NIELSEN ([id number]) on 01/29/2020 4:00:06 PM Referred By: TRICIA Confirmed By:YOLANDA GUTIÉRREZ MD
[2020-01-23 13:27] LABS: Absolute Lymphocyte Count 0.87 X10^3/uL (0.83-4.51); Basophil# 0.06 X10^3/uL; Basophil% 0.7 % (0-1); Eosinophil# 0.25 X10^3/uL; Eosinophils% 3.1 % (0-5); Hematocrit 36.4 % (40-54); Hemoglobin 11.9 g/dL (13.0-16.5); Lymphocyte # 0.87 X10^3/ul (4.0); Lymphocyte % 10.9 % (19-41); Mean Corp Hgb Conc 32.7 g/dL (32-36); Mean Corpuscular Hgb 30.5 pg (27.0-32.0); Mean Corpuscular Volume 93.3 fL (80-94); Mean Platelet Vol. 9.3 fl (6.2-12.0); Monocyte# 0.85 X10^3/uL; Monocyte% 10.6 % (0-10); NRBC Flagged by Analyzer 0 % (0-5); Neutrophil # 5.96 X10^3/uL (2.7-7.7); Neutrophil % 74.5 % (47-70); Platelet Count 209 K/mm3 (150-450); RBC Distribution Width CV 12.9 % (11.6-14.6); RBC Distribution Width SD 44.2 fl (35.1-43.9)
[2020-01-23 13:46] LABS: ALB/GLOB Ratio 0.8 RATIO (0.9-2.4); AST(SGOT) 16 U/L (15-37); Alanine Aminotransfer ALT/SGPT 19 U/L (16-61); Alkaline Phosphatase 76 U/L (45-117); Anion Gap 3 (5-15); BUN 27 mg/dL (7-18); BUN/Creat Ratio 18.2 RATIO (10-20); Calcium,Total 9.5 mg/dL (8.5-10.1); Chloride 105 mmol/L (98-107); Creatinine, Serum 1.48 mg/dL (0.70-1.30); EST Glomerular Filtration Rate 48 mL/min (>60); Est Glom Filt Rate - Afr Amer 58 mL/min (>60); Estimated Creatinine Clearance 40.78 ml/min; Globulin 3.8 g/dL (2.2-4.2); Glucose 99 mg/dL (74-106); Potassium 4.7 mmol/L (3.5-5.1); Protein, Total 6.8 g/dL (6.4-8.2); Sodium Level 138 mmol/L (136-145)
[2020-01-23] MEDS: 0.9% Normal Saline 1,000 ML 100 ML IV ×2 (14:29→22:34)
--- NOTE | 2020-01-23 16:00 | NURSING ---
PT TO OR VIA BED
--- NOTE | 2020-01-23 17:00 | BON_PTH ---
PATIENT: Duyen CORTES LOC: MS3 U#:[id number] AGE/SX: 84/M ROOM: [facility] [place] RE01/23/[address]: Dr. Travis Aceves DPM : 1935 BED: 1 DIS: 01/27/2020 SPEC #: [id number] RECD: 01/24/20 09:54 STATUS: CHANTE RERebecca #: [id number] CYNDI: 01/23/20 17:[address]: Travis Aceves DEPT: SURGICAL PATHOLOGY RECD BY: Glen Donaldson ENTERED: 01/24/20 11:03 SP TYPE: Bone OTHR DR: Dr. Jason Snider MD Tissues: A - Bone of foot, NOS B - Bone of foot, NOS Procedures: Decalcification bone/plaque Surgery Specimen Level IV HEADER OPERATION: Amputation fifth toe, biopsy PRE-OP DIAGNOSIS: Right gas gangrene foot/toe TISSUE SUBMITTED: A. Right fifth toe proximal phalanx, B. Right fifth toe metatarsal MICROSCOPIC DIAGNOSIS A. Right fifth toe proximal phalanx, biopsy: Bone with reparative and reactive change. See comment. B. Right fifth toe metatarsal, biopsy: Bone with focal reactive change. See comment. AM:christophe 01/29/20 COMMENT A & B. There is no evidence of osteomyelitis. Clinical correlation is suggested. MICROSCOPIC DESCRIPTION Slides are reviewed. GROSS DESCRIPTION A - Received in fixative is one container labeled with the patient's name and designated right fifth toe proximal phalanx. The specimen consists of a piece of bone measuring 1 x 0.8 x 0.3 cm. The entire specimen is submitted in one cassette after decalcification. B - Received in fixative is one container labeled with the patient's name and designated right fifth metatarsal. The specimen consists of a fragment of kathleen bone measuring 0.2 x 0.2 x 0.1 cm. The entire specimen is submitted in one cassette after decalcification. / SJ:christophe 01/24/20 TC:5 CPT: 24103 x2, 20762 x2
--- NOTE | 2020-01-23 17:10 | RAD_ITS ---
STUDY: X-RAY RIGHT FOOT, FIFTH TOE REASON FOR EXAM: Male, 84 years old. RIGHT 5TH TOE AMPUTATION -- 2 IMAGES -- 11 SECONDS -- 0.0671 mGy TECHNIQUE: 2 C-arm views of the toe were obtained. 11 seconds of fluoroscopy time COMPARISON: None. FINDINGS: These 2 images show amputation of the fourth and fifth toes. Correlate with procedure note. Electronically Signed: Abner Elkins MD at 20:02 EST , Service support , RAD/Toe(s) Min 2 Views
--- NOTE | 2020-01-23 17:22 | PCA ---
pt off floor
--- NOTE | 2020-01-23 18:49 | CON.PCM_ITS ---
Problem List (1) Peripheral arterial occlusive disease Status: Acute Reason for Consult Date of Consultation: 01/23/20 History of Present Illness: The patient is a 84 year old M who I have been asked to see urgently prior to planned right fifth digit amputation per Dr. Travis Aceves and a written copy of my surgical consult recommendations will be present in the chart. 84-year-old gentleman. Soon to be taken back to the operating room and I was asked to provide vascular impression regarding his lower extremity supply. I have previously assisted the patient in the past with bilateral carotid endarterectomies. I have not personally seen him since 2018. I have never previously seen him for lower extremity arterial occlusive disease. The patient states that for an extended period of time of a re-year he has had trouble with calluses of his right foot fifth toe. Apparently over the past 3 weeks he has developed an abscessed infected fifth toe and it is felt to be an urgent need of treatment. The patient did have noninvasive arterial testing today. This suggested moderately severe arterial occlusive disease bilateral lower extremities. Markedly abnormal bilateral digital brachial indices. The patient states that he is prediabetic. He states that he has not previously had any vascular intervention regarding his lower extremities. On today's visit his white count 8000 hemoglobin 11.9 hematocrit 36.4 platelet count 209,000. His BUN is elevated to 27 and creatinine is 1.48 with an estimated GFR of 40.78. His albumin is slightly low at 3. He claims not to have sensation loss of his feet. He denies previous known history of neuropathy. 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 Past Medical History Past Medical History (Chronic Problems): Chronic Problems (Last Reviewed 08/31/19 @ 08:49 by Ada Shafer) Presence of permanent cardiac pacemaker (Chronic ~09/22/19) [employer] Accolade MRI L311 pulse generator programmed as DDDR, [employer] MRI 7741 right atrial lead and Mimeoevity 7742 right ventricular lead 09/22/19 Sinus bradycardia (Chronic) Atherosclerotic heart disease of [place] coronary artery without angina pectoris (Chronic) Pure hypercholesterolemia (Chronic) Carotid artery disease (Chronic) Presence of stent in coronary artery (Chronic ~01/28/11) PTCA/Stent to LCX 01/28/11 History of coronary artery bypass surgery (Chronic ~06/11/97) CABG x2: VIZCARRA to LAD and Y graft off of VIZCARRA to diagonal 06/11/97 Traction bronchiectasis (Chronic) Pulmonary hypertension (Chronic) PASP of 43 (January 2018) Interstitial lung disease (Chronic) Wheezing (Chronic) Fatigue (Chronic) Cough (Chronic) Hypothyroidism (Chronic) Benign essential HTN (Chronic) Medical History: Medical History (Last Reviewed 08/31/19 @ 08:49 by Ada Shafer) Atherosclerotic heart disease of [place] coronary artery without angina pectoris (Chronic) I25.10 Pure hypercholesterolemia (Chronic) E78.00 Carotid artery disease (Chronic) I77.9 Presence of stent in coronary artery (Chronic) Onset Date: ~01/28/11 Z95.5 PTCA/Stent to LCX 01/28/11 Esophageal reflux (Acute) K21.9 Interstitial lung disease (Chronic) J84.9 Wheezing (Chronic) R06.2 Fatigue (Chronic) R53.83 Cough (Chronic) R05 Hypothyroidism (Chronic) E03.9 Benign essential HTN (Chronic) I10 Anal stenosis 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 Hemorrhage of gastrointestinal tract, unspecified K92.2 Hemorrhage of rectum and anus K62.5 History of flexible sigmoidoscopy Z98.890 06/19/2008 Mild cognitive disorder F09 OM (osteomyelitis) M86.9 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 Urinary retention R33.9 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 BPH (benign prostatic hyperplasia) Chronic gout M1A.[id number] CHAVEZ (dyspnea on exertion) R06.09 Prediabetes R73.03 Psoriasis L40.9 Rheumatoid arthritis M06.9 Internal hemorrhoids (Resolved) K64.8 Occlusion and stenosis of unspecified carotid artery I65.29 Allergies hyoscyamine [Hyoscyamine] Allergy (Verified 01/12/20 10:52) Other metronidazole Allergy (Verified 01/12/20 10:52) Unknown sesame oil Allergy (Verified 01/12/20 10:52) Other Sulfa (Sulfonamide Antibiotics) Allergy (Verified 01/12/20 10:52) Other sulfamethoxazole [From Bactrim] Allergy (Verified 01/12/20 10:52) Other tree nut [Tree Nut] Allergy (Verified 01/12/20 10:52) Other trimethoprim [From Bactrim] Allergy (Verified 01/12/20 10:52) Other CATS Allergy (Uncoded 07/12/19 14:08) Rash HAYFEVER Allergy (Uncoded 07/12/19 14:08) Other Home Medications: Ambulatory Orders Medication Instructions Recorded Allopurinol [Zyloprim] 300 mg PO DAILY 04/30/14 Aspirin [Aspirin, Baby] 81 mg PO DAILY@0800 04/30/14 Clopidogrel Bisulfate [Plavix] 75 mg PO DAILY 04/30/14 Finasteride [Proscar] 5 mg PO DAILY 04/30/14 Gabapentin [Neurontin] 300 mg PO DAILY 04/30/14 Levothyroxine Sodium [Levoxyl] 150 mcg PO DAILY 04/30/14 Loratadine [Claritin] 10 mg PO DAILY 04/30/14 Multivitamins,Therapeutic 1 tab PO DAILY 04/30/14 [Multivitamin] [place]-3 Fatty Acids/Fish Oil [Fish 1 ea PO DAILY 04/30/14 Oil 1,000 mg Capsule] Pravastatin [Pravachol] 40 mg PO QHS 04/30/14 Tamsulosin HCl [Flomax] 0.4 mg PO DAILY 04/30/14 Donepezil HCl [Aricept] 10 mg PO QHS 02/17/18 Nitroglycerin (INPATIENT USE) 0.4 mg SUBLINGUAL Q5M PRN 02/17/18 [Nitrostat] Polyethylene Glycol 3350 [Miralax] 17 gm PO DAILY PRN 02/17/18 Vits A,C,E/Lutein/Minerals 1 ea PO DAILY 02/17/18 [Ocuvite with Lutein Tablet] lisinopril 20 mg tablet 10 mg PO DAILY tab 03/15/18 famotidine 20 mg tablet 20 mg PO BID tab 09/25/19 Surgical History: Surgical History (Last Reviewed 08/31/19 @ 08:49 by Ada Shafer) History of coronary artery bypass surgery (Chronic) Onset Date: ~06/11/97 Z95.1 CABG x2: VIZCARRA to LAD and Y graft off of VIZCARRA to diagonal 06/11/97 Presence of coronary angioplasty implant and graft Onset Date: ~01/28/11 Z95.5 PTCA/Stent to LCX 01/28/11 History of amputation of lesser toe Z89.429 right foot, 4th digit-2009 History of bunionectomy of right great toe Z98.890 2010 History of cardiac catheterization Z98.890 2011 History of cataract surgery Z98.49 2016 History of hemorrhoidectomy Z98.890 1963 History of knee surgery Z98.890 Right knee replacement- 2012 History of left-sided carotid endarterectomy Onset Date: ~1997 Z98.890 History of prostatectomy Z90.79 2006 History of right-sided carotid endarterectomy Onset Date: ~05/04/14 Z98.890 History of tonsillectomy Z90.89 1942 History of transurethral resection of prostate Z98.890, Z90.79 History of vasectomy Z98.52 1971 Hx of colonoscopy Z98.890 08/10/2014 Surgical History: angioplasty, coronary bypass surgery, tonsillectomy, TURP, - - Total right knee. Psychiatric History: No pertinent psych hx Smoking Status: Never smoker - *Family History Paternal Family History: Family History (Last Reviewed 08/31/19 @ 08:49 by Ada Shafer) Father Heart disease History Items: Diabetes, Heart Disease Maternal Family History: Family History (Last Reviewed 08/31/19 @ 08:49 by Ada Shafer) Father Heart disease History Items: No pertinent history Review of Systems Cardiovascular: Denies: Chest Pain, Claudication Gastrointestinal: Reports: - - No history of abdominal aortic aneurysm. Denies: Abdominal Pain Musculoskeletal: Denies: Foot Pain Endocrine: Denies: Change in Body Habitus Patient Problems: Active and Suspected Problems (Last Reviewed 08/31/19 @ 08:49 by Ada Shafer) Peripheral arterial occlusive disease (Acute) - Physical Exam Vitals/I&O's: Vital Signs Temp Pulse Resp BP Pulse Ox 98.0 F 64 16 139/66 H 97 01/23/20 18:36 01/23/20 18:36 01/23/20 18:36 01/23/20 18:36 01/23/20 18:36 Oxygen Delivery Method Room Air Weight: 172 lb 12.773 oz Body Mass Index (BMI) 23.4 General: Alert, Cooperative, No apparent distress HEENT: Atraumatic Oral: Moist Mucosa Neck: - - Well-healed bilateral neck carotid incisions, 2/6 bruits bilaterally Lungs: Clear to auscultation, Normal air movement Cardiovascular: Regular rate, Regular Rhythm, - - Lateral radial pulses are 3+. Bilateral brachials 3+. Bilateral carotids 3+ with bilateral bruits. Bilateral femorals are 3+. Bilateral popliteals 3+. Bilateral DP and PT pulses are not palpable Abdomen: Bowel Sounds Present, Soft, Non Tender, - - Not expansile Extremities: No Calf Tenderness, - - Both feet are warm but tissue appears rather pale. Capillary refill is diminished bilaterally. Hair loss is noted. Hypertrophic nails. Abscessed right fifth toe with erythema on the plantar s urface. Neurological: - - Diminished light touch sensation bilateral feet. Poor historian. Psych/Mental Status: Normal Affect Laboratory Results 01/23/20 13:13: WBC 8.0, RBC 3.90 L, Hgb 11.9 L, Hct 36.4 L, MCV 93.3, MCH 30.5, MCHC 32.7, RDW Std Deviation 44.2 H, RDW Coeff of Priya 12.9, Plt Count 209, MPV 9.3, Immature Gran % (Auto) 0.200, Neut % (Auto) 74.5 H, Lymph % (Auto) 10.9 L, Kendall % (Auto) 10.6 H, Eos % (Auto) 3.1, Baso % (Auto) 0.7, Absolute Neuts (auto) 6.0, Absolute Lymphs (auto) 0.87, Nucleated RBC % 0 01/23/20 13:13: Sodium 138, Potassium 4.7, Chloride 105, Carbon Dioxide 30.0, Anion Gap 3 L, BUN 27 H, Creatinine 1.48 H, Estim Creat Clear Calc 40.78, Est GFR (MDRD) Af Amer 58 L, Est GFR (MDRD) Non-Af 48 L, BUN/Creatinine Ratio 18.2, Glucose 99, Calcium 9.5, Total Bilirubin 0.60, AST 16, ALT 19, Alkaline Phosphatase 76, Total Protein 6.8, Albumin 3.0 L, Globulin 3.8, Albumin/Globulin Ratio 0.8 L Current Medications Sodium Chloride () 250 mls @ 15 mls/hr IV .[id number] PRN PRN Reason: Saline Flush Sodium Chloride () 250 mls @ 15 mls/hr IV .[id number] PRN PRN Reason: Additional IVPB Infusion Famotidine 20 mg/ Sodium (Chloride) 10 mls @ 300 mls/hr IV Q12 KOKI Sodium Chloride () 1,000 mls @ 100 mls/hr IV .Q10H KOKI Stop: 01/24/20 09:09 Last Admin: 01/23/20 14:29 Dose: 100 mls/hr Documented by: Piperacillin Sod/Tazobactam (Sod 3.375 gm/ Sodium Chloride) 50 mls @ 12.5 mls/hr IV Q8 KOKI Vancomycin HCl (Vancomycin) 1,000 mg in 200 mls @ 200 mls/hr IV Q12H KOKI Vancomycin IV Pharmacy to Dose (1 ea/ Sodium Chloride) 500 mls @ 250 mls/hr IV X1 PRN; Protocol PRN Reason: Rx to Dose Oxycodone HCl (Oxyir) 5 mg PO Q4H PRN PRN PRN Reason: Pain Score 6-10/10 Sodium Chloride () 10 - 40 ml IV UD PRN PRN Reason: SALINE FLUSH Assessment/Plan All Active Problems (Last Reviewed 08/31/19 @ 08:49 by Ada Shafer) Peripheral arterial occlusive disease (Acute) Esophageal reflux (Acute) Internal hemorrhoids (Resolved) On reviewing the patient's bilateral extremity clinical examination and noninvasive testing I suspect that he has moderately severe bilateral extremity arterial occlusive disease. This would appear to be infrageniculate in nature bilaterally. Inspection of both feet demonstrate a rather diminished pallor. There is diminished capillary refill. Diminished venous filling. Other signs of chronic arterial insufficiency. The digital brachial indices are notably diminished. He likely has multi segmental disease including the larger vessels of the infrageniculate nature as well as distal small vessel disease. Unfortunately I am not able to predict or assure that he will have resolution of his right fifth digit amputation site and I have discussed with Dr. Travis Aceves this finding as well as the patient's . However the toe appears to be acutely abscessed and infected and I do concur with debridement and amputation. Pending findings at the time of surgery that may then possibly warrant further future vascular referral or intervention. Unfortunately Dr. Aceves is also well that I will be out of town this coming week. I appreciate the opportunity of assisting with his surgical care. Rush Guevara M.D., F.A.C.S.
--- NOTE | 2020-01-23 18:51 | PCM.RX.CS ---
Consult Pharmacy has been consulted to manage selected antiobiotic: Vancomycin Type of Consult: New start Suspected Infection: Other - OSTEOMYELITIS Labs: Sodium 138 mmol/L (136-145) 01/23/20 13:13 Potassium 4.7 mmol/L (3.5-5.1) 01/23/20 13:13 Chloride 105 mmol/L (98-107) 01/23/20 13:13 Carbon Dioxide 30.0 mmol/L (21.0-32.0) 01/23/20 13:13 Anion Gap 3 (5-15) L 01/23/20 13:13 BUN 27 mg/dL (7-18) H 01/23/20 13:13 Creatinine 1.48 mg/dL (0.70-1.30) H 01/23/20 13:13 Est GFR (MDRD) Af Amer 58 mL/min (>60) L 01/23/20 13:13 Est GFR (MDRD) Non-Af 48 mL/min (>60) L 01/23/20 13:13 BUN/Creatinine Ratio 18.2 RATIO (10-20) 01/23/20 13:13 Glucose 99 mg/dL (74-106) 01/23/20 13:13 Weight used for dosin.4 kg Estimated Creatinine Clearance: 40.8 Goal Trough: 15-20 mcg/mL Pharmacy Plan for Drug Dosin. Will start vancomycin IV 500mg Q12H based on weight and CrCl 2. Trough scheduled prior to 4th dose 3. Pharmacy Service will continue to monitor and adjust dosing as required. Labs to be done on [date and time ordered]: 01/25/2020 @ 1879
--- NOTE | 2020-01-23 19:38 | RAD_ITS ---
STUDY: X-RAY - RIGHT FOOT CLINICAL: Male, 84 years old. post op right 5th toe amputation TECHNIQUE: 3 view(s) of the foot. COMPARISON: 04/07/2010. FINDINGS: Since prior exam there has been introduced and all the fifth digit. Soft tissue changes, including soft tissue air, consistent with recent surgery surgery are seen. This makes it impossible to exclude soft tissue infection. Currently, no focal destructive lesions of the bones are seen. No other significant changes. Widespread degenerative changes and postoperative changes. RAD/Foot min 3 Views IMPRESSION: Status post amputation of the fifth toe. Soft tissue changes of the postoperative stomach consistent with the recent surgery. Electronically Signed: Abner Elkins MD at 20:28 EST , Service support ,
--- NOTE | 2020-01-23 19:50 | OP.PCM_ITS ---
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 right 5th toe amputation. bone biopsy of right 5th metatarsal Description of Surgical Findings:: + infection/nonviable bone of right 5th toe proximal phalanx healthy appearing bone of right 5th metatarsal Type of Anesthesia:: Local MAC Specimen's removed: right 5th toe proximal phalanx for pathology and micro. right 5th metatarsal for pathology and micro Estimated Blood Loss (mL): 5 ml Description of Procedure: patient is an 84 year old male who I treat regularly for routine foot care. He has history of callus of right 5th toe that I have treated in past with debridement and use of toe spacers/lambs wool. He was given gel padding in the past which has helped to eliminate callus . Unfortunately, his gel padding eventually demonstrated signs of wearing so he had recently purchased an otc pad. over the past few weeks, the pad he purchased otc caused blistering and sores to the right 5th toe. Apparently this developed a few weeks ago and his 5th toe has progressively worsened. He presented to my clinic today with a tender, swollen, erythematous 5th toe. He was advised admission to hospital and likely need for amputation. I discussed concerns of amputation and his ability to heal. I obtained noninvasive vascular testing prior to procedure and there does demonstrate small vessel disease. I obtained consultation with Dr. Guevara and I personally discussed the pvr with Dr. Guevara. There is certainly risk that amputation will not heal and he may require further amputation. Patient clearly understands this however given the significant infection of right 5th toe, it is necessary to perform amputation. Prior to admission to [facility], I did offer patient admission to [facility] where vascular surgery would be available in the event he has issues healing. patient has elected admission to [facility]. Patient was informed of risk of surgery not limited to infection, pain, swelling, bleeding, slow wound healing, need for more proximal amputation. Patient informed that in the event that he demonstrates poor ability to heal, he may require transfer to [facility] as Dr. Guevara will be out of town in the event vascular intervention is warranted. patient understands all risks. he consents to procedure. He consents to I&D with amputation of 5th toe. I did inform patient partial ray resection may be necessary in the event bone does not appear viable. Partial 5th ray resection may be necessary in future in event skin closure is not obtainable with toe amputation. patient prefers to salvage as much foot as possible. I also informed patient of risk of transfer lesions to right 3rd toe given past amputation of 4th toe. he understands this. patient was transferred to operating room and placed on the operating room table in the supine position. he was placed under monitored anesthesia care and the right foot was prepped and draped in the usual aseptic technique. Time out was performed making note of procedure planned. the right foot was injected with 10cc of lidocaine plain. Attention was directed to right foot where the 5th toe was edematous and nonviable to level of pipj. A fish mouth incision was planned along the pipj extending to mtpj. A full thickness skin incision was performed to level of bone. the toe was disarticulated at level of mtpj. The toe was passed to back table and I obtained samples of 5th toe proximal phalanx and this was sent for pathology and micro. The tissue at level of mtpj appeared healthy and viable. the 5th metatarsal head appeared healthy. The foot was then irrigated with normal saline via pulse lavage. Following irrigation of right foot, clean instrumentation and gloves were exchanged. A sample of the 5th metatarsal was sent for pathology and micro. I then inspected the remaining skin available for closure. I approximated the proximal incision with 3-0 nylon. I evaluated the potential ability for closure. at this time, the skin available demonstrates good healthy granulation tissue suitable for closure. furthermore, it appears at this time that the skin can achieve closure without tension and at this time, no need for further bone resection. The toe was packed with betadine soaked packing. a post-op dressing was applied consisting of adaptic, 4x4 guaze, harry and rupert. Patient was awakened and found to be in stable condition. He was transferred to pacu I will plan to perform bedside irrigation daily. I will monitor the foot closely for any necrotic changes. If the foot appears stable without any adverse set-backs, I will plan for closure on wednesday. I will consult Infectious disease to assist in antibiotics at out patient.
[2020-01-23] MEDS: Vancomycin IV 500 MG/100 ML BAG 100 MG IV (19:51)
[2020-01-23] MEDS: 0.9% Saline Lock 10 ML Syringe IV (19:57)
[2020-01-23] MEDS: Famotidine 200 MG/20 ML MDV 20 MG in 0.9% Normal Saline (Pres. free 8 ML 300 MG IV (22:41)
[2020-01-24 01:43] VITALS: BP 134/64; PULSE 60; RESP 18; TEMP 36.6; O2SAT 92
[2020-01-24] MEDS: oxyCODONE 5 MG Tablet PO ×2 (01:44→06:50)
--- NOTE | 2020-01-24 05:49 | PCM.PN.SRG ---
Patient Problems: Active and Suspected Problems (Last Reviewed 08/31/19 @ 08:49 by Ada Shafer) Peripheral arterial occlusive disease (Acute) Subjective: Pt states not much post operative pain - Physical Exam Vitals/I&O's: Vital Signs Temp Pulse Resp BP Pulse Ox 98 F 60 18 134/64 H 92 01/24/20 01:43 01/24/20 01:43 01/24/20 01:43 01/24/20 01:43 01/24/20 01:43 Oxygen Delivery Method Room Air Weight: 172 lb 12.773 oz Body Mass Index (BMI) 23.4 Intake and Output for Last 24 Hours 01/22/20 01/23/20 01/24/20 23:59 23:59 23:59 Intake Total 868.59 / 968.59 100 / 100 Output Total 200 / 200 Balance 868.59 / 768.59 -100 / -100 Extremities: - - right foot dressing intact with some strike through bloody drainage Laboratory Results 01/23/20 13:13: WBC 8.0, RBC 3.90 L, Hgb 11.9 L, Hct 36.4 L, MCV 93.3, MCH 30.5, MCHC 32.7, RDW Std Deviation 44.2 H, RDW Coeff of Priya 12.9, Plt Count 209, MPV 9.3, Immature Gran % (Auto) 0.200, Neut % (Auto) 74.5 H, Lymph % (Auto) 10.9 L, [place] % (Auto) 10.6 H, Eos % (Auto) 3.1, Baso % (Auto) 0.7, Absolute Neuts (auto) 6.0, Absolute Lymphs (auto) 0.87, Nucleated RBC % 0 01/23/20 13:13: Sodium 138, Potassium 4.7, Chloride 105, Carbon Dioxide 30.0, Anion Gap 3 L, BUN 27 H, Creatinine 1.48 H, Estim Creat Clear Calc 40.78, Est GFR (MDRD) Af Amer 58 L, Est GFR (MDRD) Non-Af 48 L, BUN/Creatinine Ratio 18.2, Glucose 99, Calcium 9.5, Total Bilirubin 0.60, AST 16, ALT 19, Alkaline Phosphatase 76, Total Protein 6.8, Albumin 3.0 L, Globulin 3.8, Albumin/Globulin Ratio 0.8 L Current Medications Sodium Chloride () 250 mls @ 15 mls/hr IV .[id number] PRN PRN Reason: Saline Flush Last Infusion: 01/23/20 23:58 Dose: 15 mls/hr Documented by: Sodium Chloride () 250 mls @ 15 mls/hr IV .[id number] PRN PRN Reason: Additional IVPB Infusion Famotidine 20 mg/ Sodium (Chloride) 10 mls @ 300 mls/hr IV Q12 [facility] Last Infusion: 01/23/20 22:43 Dose: Infused Documented by: Sodium Chloride () 1,000 mls @ 100 mls/hr IV .Q10H [facility] Stop: 01/24/20 09:09 Last Admin: 01/23/20 22:34 Dose: 100 mls/hr Documented by: Piperacillin Sod/Tazobactam (Sod 3.375 gm/ Sodium Chloride) 50 mls @ 12.5 mls/hr IV Q8 [facility] Last Infusion: 01/23/20 23:58 Dose: Infused Documented by: Vancomycin IV Pharmacy to Dose (1 ea/ Sodium Chloride) 500 mls @ 250 mls/hr IV X1 PRN; Protocol PRN Reason: Rx to Dose Vancomycin HCl () 500 mg in 100 mls @ 100 mls/hr IV Q12H [facility] Last Infusion: 01/23/20 20:51 Dose: Infused Documented by: Nutritional Formula (Lactose Free) (Glucerna Shake) 120 ml PO TIDCM [facility] Oxycodone HCl (Oxyir) 5 mg PO Q4H PRN PRN PRN Reason: Pain Score 6-10/10 Last Admin: 01/24/20 01:44 Dose: 5 mg Documented by: Sodium Chloride () 10 - 40 ml IV UD PRN PRN Reason: SALINE FLUSH Last Admin: 01/23/20 19:57 Dose: 10 ml Documented by: Medical Necessity - Tobacco Use Smoking Status: Never smoker Assessment/Plan All Active Problems (Last Reviewed 08/31/19 @ 08:49 by Ada Shafer) Peripheral arterial occlusive disease (Acute) Esophageal reflux (Acute) Internal hemorrhoids (Resolved) Operative report of viable tissue and evidence of some dressing strike through Will await further recommendations per Dr Aceves subsequent to dressing change
[2020-01-24] MEDS: Vancomycin IV 500 MG/100 ML BAG 100 MG IV ×2 (06:37→18:32)
--- NOTE | 2020-01-24 07:33 | NURSING ---
wound photo: right foot
[2020-01-24 07:44] VITALS: BP 120/61; PULSE 60; RESP 14; TEMP 37.1; O2SAT 90
--- NOTE | 2020-01-24 07:51 | PCM.PN.SRG ---
Patient Problems: Active and Suspected Problems (Last Reviewed 08/31/19 @ 08:49 by Ada Shafer) Peripheral arterial occlusive disease (Acute) Subjective: patient seen at bedside. pain is controlled. denies n/v/f/c. Objective: patient is alert and orientated x 3. he does not appear in any distress right foot with dressing intact, mild strike-thru. dressing removed today and sterile irrigation was performed. the wound appears healthy with no necrosis of wound margins. there is no drainage or erythema. color of skin appears normal. no calf pain noted. - Physical Exam Vitals/I&O's: Vital Signs Temp Pulse Resp BP Pulse Ox 98.7 F 60 14 120/61 90 01/24/20 07:44 01/24/20 07:44 01/24/20 07:44 01/24/20 07:44 01/24/20 07:44 Oxygen Delivery Method Room Air Weight: 78.38 kg Body Mass Index (BMI) 23.4 Intake and Output for Last 24 Hours 01/22/20 01/23/20 01/24/20 23:59 23:59 23:59 Intake Total 868.59 / 968.59 1117.17 / 1117.17 Output Total 500 / 500 Balance 868.59 / 768.59 617.17 / 617.17 Laboratory Results 01/23/20 13:13: WBC 8.0, RBC 3.90 L, Hgb 11.9 L, Hct 36.4 L, MCV 93.3, MCH 30.5, MCHC 32.7, RDW Std Deviation 44.2 H, RDW Coeff of Priya 12.9, Plt Count 209, MPV 9.3, Immature Gran % (Auto) 0.200, Neut % (Auto) 74.5 H, Lymph % (Auto) 10.9 L, [place] % (Auto) 10.6 H, Eos % (Auto) 3.1, Baso % (Auto) 0.7, Absolute Neuts (auto) 6.0, Absolute Lymphs (auto) 0.87, Nucleated RBC % 0 01/23/20 13:13: Sodium 138, Potassium 4.7, Chloride 105, Carbon Dioxide 30.0, Anion Gap 3 L, BUN 27 H, Creatinine 1.48 H, Estim Creat Clear Calc 40.78, Est GFR (MDRD) Af Amer 58 L, Est GFR (MDRD) Non-Af 48 L, BUN/Creatinine Ratio 18.2, Glucose 99, Calcium 9.5, Total Bilirubin 0.60, AST 16, ALT 19, Alkaline Phosphatase 76, Total Protein 6.8, Albumin 3.0 L, Globulin 3.8, Albumin/Globulin Ratio 0.8 L Current Medications Sodium Chloride () 250 mls @ 15 mls/hr IV .[id number] PRN PRN Reason: Saline Flush Last Infusion: 01/24/20 06:00 Dose: 0 mls/hr Documented by: Sodium Chloride () 250 mls @ 15 mls/hr IV .[id number] PRN PRN Reason: Additional IVPB Infusion Famotidine 20 mg/ Sodium (Chloride) 10 mls @ 300 mls/hr IV Q12 [facility] Last Infusion: 01/23/20 22:43 Dose: Infused Documented by: Sodium Chloride () 1,000 mls @ 100 mls/hr IV .Q10H [facility] Stop: 01/24/20 09:09 Last Infusion: 01/24/20 06:38 Dose: 0 mls/hr Documented by: Piperacillin Sod/Tazobactam (Sod 3.375 gm/ Sodium Chloride) 50 mls @ 12.5 mls/hr IV Q8 [facility] Last Admin: 01/24/20 05:59 Dose: 12.5 mls/hr Documented by: Vancomycin IV Pharmacy to Dose (1 ea/ Sodium Chloride) 500 mls @ 250 mls/hr IV X1 PRN; Protocol PRN Reason: Rx to Dose Vancomycin HCl () 500 mg in 100 mls @ 100 mls/hr IV Q12H [facility] Last Admin: 01/24/20 06:37 Dose: 100 mls/hr Documented by: Nutritional Formula (Lactose Free) (Glucerna Shake) 120 ml PO TIDCM [facility] Oxycodone HCl (Oxyir) 5 mg PO Q4H PRN PRN PRN Reason: Pain Score 6-10/10 Last Admin: 01/24/20 06:50 Dose: 5 mg Documented by: Sodium Chloride () 10 - 40 ml IV UD PRN PRN Reason: SALINE FLUSH Last Admin: 01/23/20 19:57 Dose: 10 ml Documented by: Medical Necessity - Tobacco Use Smoking Status: Never smoker Assessment/Plan All Active Problems (Last Reviewed 08/31/19 @ 08:49 by Ada Shafer) Peripheral arterial occlusive disease (Acute) Esophageal reflux (Acute) Internal hemorrhoids (Resolved) Patient was examined and informed of current findings. under sterile technique, the right foot was irrigated with normal saline. At this present time, the wound appears viable with no erythema and normal color. there are no necrotic changes at this time. I am going to monitor the foot very closely while performing irrigation of wound daily. patient with pad of lower extremity which does risk nonhealing of amputation site. patient understands the risk of possible need for further bone resection and/or amputation. My plan is to perform delayed closure on Wednesday provided the wound continues to appear viable. at this present time, it appears he should have adequate soft-tissue coverage without need for further bone resection. pending appearance of skin in coming days will determine if further bone resection is needed. 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 However, in the interest of achieving closure, if bone resection is required, patient has provided consent to do so. I will have him partial weightbearing to right heel. will consult physical therapy for partial weightbearing. I will consult ID for assistance in outpatient antibiotics. discussed case with Dr. Guevara yesterday. I appreciate his recommendations.
--- NOTE | 2020-01-24 08:02 | PN_ITS ---
Patient Problems: Active and Suspected Problems (Last Reviewed 08/31/19 @ 08:49 by Ada Shafer) Peripheral arterial occlusive disease (Acute) Reason for Visit: Follow-upon right toe gangrene/abscess Subjective: Patient was seen and examined. Denied any new complaints. Denied any fever or chills. Objective: Physical exam: General: Alert, Oriented x3, Cooperative, No apparent distress HEENT: Atraumatic, PERRLA, EOMI, Normocephalic Oral: Moist Mucosa Neck: Supple Lungs: Clear to auscultation, Normal air movement Cardiovascular: Regular rate, Regular Rhythm, Normal S1, Normal S2, Murmur - 3/6 holosystolic murmur Abdomen: Bowel Sounds Present, Soft, Non Tender, Non-Distended, No Hepato- splenomegaly Extremities: No edema, Tenderness - dark discoloration of right 5th toe, swollen, tender to touch Musculoskeletal: No Tenderness to Palpation of Joints or Extremities Lymphatic: No Cervical, Supraclavicular, or Inguinal Adenopathy Neurological: Cranial nerves II-XII grossly intact, Neuro grossly intact Psych/Mental Status: Normal Affect, Appropriate Vitals/I&O's: Vital Signs Temp Pulse Resp BP Pulse Ox 98.7 F 60 14 120/61 90 01/24/20 07:44 01/24/20 07:44 01/24/20 07:44 01/24/20 07:44 01/24/20 07:44 Oxygen Delivery Method Room Air Weight: 78.38 kg Body Mass Index (BMI) 23.4 Intake and Output for Last 24 Hours 01/22/20 01/23/20 01/24/20 23:59 23:59 23:59 Intake Total 868.59 / 968.59 1117.17 / 1117.17 Output Total 500 / 500 Balance 868.59 / 768.59 617.17 / 617.17 Laboratory Results 01/23/20 13:13: WBC 8.0, RBC 3.90 L, Hgb 11.9 L, Hct 36.4 L, MCV 93.3, MCH 30.5, MCHC 32.7, RDW Std Deviation 44.2 H, RDW Coeff of Priya 12.9, Plt Count 209, MPV 9.3, Immature Gran % (Auto) 0.200, Neut % (Auto) 74.5 H, Lymph % (Auto) 10.9 L, [place] % (Auto) 10.6 H, Eos % (Auto) 3.1, Baso % (Auto) 0.7, Absolute Neuts (auto) 6.0, Absolute Lymphs (auto) 0.87, Nucleated RBC % 0 01/23/20 13:13: Sodium 138, Potassium 4.7, Chloride 105, Carbon Dioxide 30.0, Anion Gap 3 L, BUN 27 H, Creatinine 1.48 H, Estim Creat Clear Calc 40.78, Est GFR (MDRD) Af Amer 58 L, Est GFR (MDRD) Non-Af 48 L, BUN/Creatinine Ratio 18.2, Glucose 99, Calcium 9.5, Total Bilirubin 0.60, AST 16, ALT 19, Alkaline Phosphatase 76, Total Protein 6.8, Albumin 3.0 L, Globulin 3.8, Albumin/Globulin Ratio 0.8 L Current Medications Sodium Chloride () 250 mls @ 15 mls/hr IV .[id number] PRN PRN Reason: Saline Flush Last Infusion: 01/24/20 06:00 Dose: 0 mls/hr Documented by: Sodium Chloride () 250 mls @ 15 mls/hr IV .[id number] PRN PRN Reason: Additional IVPB Infusion Famotidine 20 mg/ Sodium (Chloride) 10 mls @ 300 mls/hr IV Q12 [facility] Last Infusion: 01/23/20 22:43 Dose: Infused Documented by: Sodium Chloride () 1,000 mls @ 100 mls/hr IV .Q10H [facility] Stop: 01/24/20 09:09 Last Infusion: 01/24/20 06:38 Dose: 0 mls/hr Documented by: Piperacillin Sod/Tazobactam (Sod 3.375 gm/ Sodium Chloride) 50 mls @ 12.5 mls/hr IV Q8 [facility] Last Admin: 01/24/20 05:59 Dose: 12.5 mls/hr Documented by: Vancomycin IV Pharmacy to Dose (1 ea/ Sodium Chloride) 500 mls @ 250 mls/hr IV X1 PRN; Protocol PRN Reason: Rx to Dose Vancomycin HCl () 500 mg in 100 mls @ 100 mls/hr IV Q12H [facility] Last Admin: 01/24/20 06:37 Dose: 100 mls/hr Documented by: Nutritional Formula (Lactose Free) (Glucerna Shake) 120 ml PO TIDCM [facility] Oxycodone HCl (Oxyir) 5 mg PO Q4H PRN PRN PRN Reason: Pain Score 6-10/10 Last Admin: 01/24/20 06:50 Dose: 5 mg Documented by: Sodium Chloride () 10 - 40 ml IV UD PRN PRN Reason: SALINE FLUSH Last Admin: 01/23/20 19:57 Dose: 10 ml Documented by: STROKE Vital Signs/Narrative: Vital Signs Temp Pulse Resp BP Pulse Ox 01/24/20 07:44 98.7 F 60 14 120/61 90 Medical Necessity - Tobacco Use Smoking Status: Never smoker Assessment/Plan All Active Problems (Last Reviewed 08/31/19 @ 08:49 by Ada Shafer) Peripheral arterial occlusive disease (Acute) Esophageal reflux (Acute) Internal hemorrhoids (Resolved) 1. POD #1, s/p incision and drainage right 5th toe, 5th toe amputation, bone biopsy of right 5th metatarsal for right fifth toe gangrene/osteomyelitis, No reported history of DM or trauma. He is a prediabetic His pain is controlled. Wound cultures in the bone growing gram variable kal. Other intraoperative cultures are pending Started on IV vancomycin and Zosyn, ID consulted Will also check HbA1c 2. PAD, multisegmental disease, discussed with primary, will resume Plavix and continue to hold aspirin 3. CAD status post CABG, status post stent(2010), no active cardiac complaints EKG today shows junctional rhythm, no acute ST-T changes Resumed on Plavix and statin, aspirin on hold 4. History of bilateral carotid endarterectomy, resumed on Plavix and statin, aspirin on hold for now 5. Cognitive impairment; patient is a poor historian, continue on Aricept 6. BPH, continue on Proscar and Flomax 7. Hypertension, controlled, will continue to hold off lisinopril for now We will consider resuming it tomorrow if renal function is stable 8. Hypothyroidism, continue levothyroxine 9. DVT prophylaxis -per podiatry primary team Code Visit Inpatient E&M: 68955 Subs Hosp L2
[2020-01-24] MEDS: Glucerna Shake 120 ML LIQUID PO (08:51)
[2020-01-24] MEDS: Famotidine 200 MG/20 ML MDV 20 MG in 0.9% Normal Saline (Pres. free 8 ML 300 MG IV (08:51)
[2020-01-24 09:50] VITALS: BP 103/56; PULSE 60; RESP 14; TEMP 37.1; O2SAT 93
--- NOTE | 2020-01-24 10:50 | CASEMGMT ---
RN PONCE Face to Face with patient for initial transition planning/care coordination assessment. RN CM introduced self and role at [facility]. Patient sitting in chair, alert and oriented, family at bedside. Patient willing to participate in assessment and is able to answer all questions appropriately. Care providers, pharmacy, and demographics verified. Patient wishes to discharge home, will monitor for need for HHC at discharge for wound care or IV ATBs. Patient states he has no further needs or concerns at this time. CM to follow for discharge planning needs that may arise. PCP: [facility] Specialists: Kamaljit, pulmonary, [place], educational guidance counselor; Kristy, podiatry Preferred Pharmacy: [facility] Insurance: [employer] Prescription Benefit: yes Living Will/HPOA: yes, Ifrah Fields LNOK: , daughter Living Arrangements: Patient lives with in 1 story home with 1 step to enter the home. Patient is independent prior to hospitalization. Transportation: self, DME/HHC: Patient states he has cane at home. Patient denies previous HHC or SNF Disposition Plan: Patient to discharge home with family support and follow-up plans in place. Will monitor for need for HHC. Marisela PRITCHARD, RN, CM
--- NOTE | 2020-01-24 12:59 | NURSING ---
Student documentation reviewed.
[2020-01-24 14:44] VITALS: BP 124/73; PULSE 60; RESP 16; TEMP 36.9; O2SAT 94
--- NOTE | 2020-01-24 14:56 | PCM.HP.ID ---
Problem List (1) Osteomyelitis Status: Acute Reason for Consult: osteo Consulted by: Dr. Aceves History of Present Illness: The patient is a 84 year old M presented with several weeks of R 5th toe increasing pain, redness, swelling, and bloody drainage. Follows with Dr. Aceves. Mild chills. No fever, no recent po abx. No inciting trauma to the foot, but sx initially started with a callus from his foot rubbing. No redness going up foot. Sent to hospital, taken to OR 3/3 for 5th toe amputation. On vanc/zosyn, feeling ok. Additional history obtained from family at bedside. Full ROS performed and neg except as noted above. - Medical History Past Medical History (Chronic Problems): Chronic Problems (Last Reviewed 08/31/19 @ 08:49 by Ada Shafer) Presence of permanent cardiac pacemaker (Chronic ~09/22/19) [employer] Accolade MRI L311 pulse generator programmed as DDDR, [employer] MRI 7741 right atrial lead and CardioLogsevity 7742 right ventricular lead 09/22/19 Sinus bradycardia (Chronic) Atherosclerotic heart disease of [place] coronary artery without angina pectoris (Chronic) Pure hypercholesterolemia (Chronic) Carotid artery disease (Chronic) Presence of stent in coronary artery (Chronic ~01/28/11) PTCA/Stent to LCX 01/28/11 History of coronary artery bypass surgery (Chronic ~06/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) CABG x2: VIZCARRA to LAD and Y graft off of VIZCARRA to diagonal 06/11/97 Traction bronchiectasis (Chronic) Pulmonary hypertension (Chronic) PASP of 43 (January 2018) Interstitial lung disease (Chronic) Wheezing (Chronic) Fatigue (Chronic) Cough (Chronic) Hypothyroidism (Chronic) Benign essential HTN (Chronic) Allergies/Adverse Reactions: Allergies hyoscyamine [Hyoscyamine] Allergy (Verified 01/12/20 10:52) Other metronidazole Allergy (Verified 01/12/20 10:52) Unknown sesame oil Allergy (Verified 01/12/20 10:52) Other Sulfa (Sulfonamide Antibiotics) Allergy (Verified 01/12/20 10:52) Other sulfamethoxazole [From Bactrim] Allergy (Verified 01/12/20 10:52) Other tree nut [Tree Nut] Allergy (Verified 01/12/20 10:52) Other trimethoprim [From Bactrim] Allergy (Verified 01/12/20 10:52) Other CATS Allergy (Uncoded 07/12/19 14:08) Rash HAYFEVER Allergy (Uncoded 07/12/19 14:08) Other Home Medications: Ambulatory Orders Medication Instructions Recorded Allopurinol [Zyloprim] 300 mg PO DAILY 04/30/14 Aspirin [Aspirin, Baby] 81 mg PO DAILY@0800 04/30/14 Clopidogrel Bisulfate [Plavix] 75 mg PO DAILY 04/30/14 Finasteride [Proscar] 5 mg PO DAILY 04/30/14 Gabapentin [Neurontin] 300 mg PO DAILY 04/30/14 Levothyroxine Sodium [Levoxyl] 150 mcg PO DAILY 04/30/14 Loratadine [Claritin] 10 mg PO DAILY 04/30/14 Multivitamins,Therapeutic 1 tab PO DAILY 04/30/14 [Multivitamin] [place]-3 Fatty Acids/Fish Oil [Fish 1 ea PO DAILY 04/30/14 Oil 1,000 mg Capsule] Pravastatin [Pravachol] 40 mg PO QHS 04/30/14 Tamsulosin HCl [Flomax] 0.4 mg PO DAILY 04/30/14 Donepezil HCl [Aricept] 10 mg PO QHS 02/17/18 Nitroglycerin (INPATIENT USE) 0.4 mg SUBLINGUAL Q5M PRN 02/17/18 [Nitrostat] Polyethylene Glycol 3350 [Miralax] 17 gm PO DAILY PRN 02/17/18 Vits A,C,E/Lutein/Minerals 1 ea PO DAILY 02/17/18 [Ocuvite with Lutein Tablet] lisinopril 20 mg tablet 10 mg PO DAILY tab 03/15/18 famotidine 20 mg tablet 20 mg PO BID tab 09/25/19 - Social History Tobacco Use: non-smoker Vital Signs Temp Pulse Resp BP Pulse Ox 98.5 F 60 16 124/73 H 94 01/24/20 14:44 01/24/20 14:44 01/24/20 14:44 01/24/20 14:44 01/24/20 14:44 Oxygen Delivery Method Room Air Weight: 78.38 kg Body Mass Index (BMI) 23.4 Microbiology Past 72 Hours 01/23/20 18:32 Gram Stain - Final Bone - Other Wound Culture - Preliminary No growth-Final to follow 01/23/20 18:30 Gram Stain - Final Bone - Other Wound Culture - Preliminary Gram variable kal - Other Studies Radiology: [] reviewed Other Studies: [] Route of nutrition/ use of supplements: [] Nutritional Intake: [] IV Site: [] Hummle Catheter: [] - Physical Exam General: Alert, Oriented x3, Cooperative, No apparent distress HEENT: Atraumatic, PERRLA, EOMI Neck: Supple, No Nodes Lungs: Clear to auscultation, Normal air movement Cardiovascular: Regular rate, Regular Rhythm, Murmur Abdomen: Soft, Non Tender, Non-Distended Extremities: No edema Skin: Ulcer/ Wound - reviewed photo, R foot wrapped IV Site: Peripheral, without redness Musculoskeletal: No Tenderness to Palpation of Joints or Extremities Neurological: Cranial nerves II-XII grossly intact - Assessment/Plan Antibiotics: [] Assessment/Plan: [] Active and Suspected Problems (Last Reviewed 08/31/19 @ 08:49 by Ada Shafer) Peripheral arterial occlusive disease (Acute) R 5th toe osteo - now s/p amputation by Dr. Aceves 01/22. Clearance cx neg so far, surg cx with Gram variable rods. No fever, normal wbc. Cont vanc/zosyn. Closure planned for 01/25. Will follow, thank you
[2020-01-24 15:38] LABS: Absolute Lymphocyte Count 0.77 X10^3/uL (0.83-4.51); Absolute Neutrophil Count 4.6 X10^3/uL (2.0-7.7); Basophil# 0.04 X10^3/uL; Basophil% 0.6 % (0-1); Hematocrit 36.2 % (40-54); Hemoglobin 11.6 g/dL (13.0-16.5); Lymphocyte # 0.77 X10^3/ul (4.0); Lymphocyte % 11.6 % (19-41); Mean Corpuscular Hgb 29.7 pg (27.0-32.0); Mean Corpuscular Volume 92.8 fL (80-94); Mean Platelet Vol. 9.5 fl (6.2-12.0); Monocyte# 0.82 X10^3/uL; Monocyte% 12.3 % (0-10); NRBC Flagged by Analyzer 0 % (0-5); Neutrophil # 4.62 X10^3/uL (2.7-7.7); Neutrophil % 69.3 % (47-70); Platelet Count 212 K/mm3 (150-450); RBC Distribution Width SD 44.1 fl (35.1-43.9); White Blood Count 6.7 K/mm3 (4.4-11.0)
[2020-01-24 15:48] LABS: Anion Gap 3 (5-15); BUN 24 mg/dL (7-18); BUN/Creat Ratio 14.9 RATIO (10-20); Calcium,Total 8.9 mg/dL (8.5-10.1); Chloride 106 mmol/L (98-107); Creatinine, Serum 1.61 mg/dL (0.70-1.30); EST Glomerular Filtration Rate 44 mL/min (>60); Est Glom Filt Rate - Afr Amer 53 mL/min (>60); Estimated Creatinine Clearance 37.49 ml/min; Glucose 103 mg/dL (74-106); Potassium 4.5 mmol/L (3.5-5.1); Sodium Level 137 mmol/L (136-145)
[2020-01-24 15:55] LABS: Hemoglobin A1c 5.8 % (4.2-6.3)
[2020-01-24] MEDS: 0.9% Saline Lock 10 ML Syringe IV (18:33)
[2020-01-24 21:20] VITALS: BP 134/62; PULSE 60; RESP 16; TEMP 36.7; O2SAT 98
[2020-01-24] MEDS: Donepezil HCl 10 MG Tablet PO (21:25)
[2020-01-24] MEDS: Pravastatin 40 MG Tablet PO (21:25)
[2020-01-24 21:30] VITALS: RESP 16; O2SAT 98
[2020-01-25 02:20] VITALS: BP 149/80; PULSE 61; RESP 18; TEMP 36.6; O2SAT 94
[2020-01-25] MEDS: Levothyroxine 150 MCG Tablet PO (05:56)
--- NOTE | 2020-01-25 06:21 | PCM.PN.BLA ---
Progress Note I have reviewed Dr Kumari note and suggestion of viable tissue Will recommend a future outpt appt with me please Will signoff at this time
--- NOTE | 2020-01-25 06:22 | DCINST_ITS ---
Allergies/Adverse Reactions: Allergies hyoscyamine [Hyoscyamine] Allergy (Verified 01/12/20 10:52) Other metronidazole Allergy (Verified 01/12/20 10:52) Unknown sesame oil Allergy (Verified 01/12/20 10:52) Other Sulfa (Sulfonamide Antibiotics) Allergy (Verified 01/12/20 10:52) Other sulfamethoxazole [From Bactrim] Allergy (Verified 01/12/20 10:52) Other tree nut [Tree Nut] Allergy (Verified 01/12/20 10:52) Other trimethoprim [From Bactrim] Allergy (Verified 01/12/20 10:52) Other CATS Allergy (Uncoded 07/12/19 14:08) Rash HAYFEVER Allergy (Uncoded 07/12/19 14:08) Other Medications to take at Discharge Allopurinol [Zyloprim] 300 mg PO DAILY 04/30/14 Aspirin [Aspirin, Baby] 81 mg PO DAILY@0800 04/30/14 Clopidogrel Bisulfate [Plavix] 75 mg PO DAILY 04/30/14 Gabapentin [Neurontin] 300 mg PO DAILY 04/30/14 Levothyroxine Sodium [Levoxyl] 150 mcg PO DAILY 04/30/14 Loratadine [Claritin] 10 mg PO DAILY 04/30/14 Multivitamins,Therapeutic [Multivitamin] 1 tab PO DAILY 04/30/14 [place]-3 Fatty Acids/Fish Oil [Fish Oil 1,000 mg Capsule] 1 ea PO DAILY 04/30/14 Pravastatin [Pravachol] 40 mg PO QHS 04/30/14 Donepezil HCl [Aricept] 10 mg PO QHS 02/17/18 Nitroglycerin (INPATIENT USE) [Nitrostat] 0.4 mg SUBLINGUAL Q5M PRN 02/17/18 Polyethylene Glycol 3350 [Miralax] 17 gm PO DAILY PRN 02/17/18 Vits A,C,E/Lutein/Minerals [Ocuvite with Lutein Tablet] 1 ea PO DAILY 02/17/18 lisinopril 20 mg tablet 10 mg PO DAILY tab 03/15/18 famotidine 20 mg tablet 20 mg PO BID tab 09/25/19 Finasteride [Proscar] 5 mg PO DAILY 01/24/20 Tamsulosin HCl [Flomax] 0.4 mg PO DAILY 03/04/20 Primary Care Physician: Jason Snider MD [Primary Care Provider] - Test Results: Test results from this visit will be discussed in further detail at your follow- up appointment, if applicable. Please Follow Up With: Rush Guevara MD - [phone] When: Call to make an appointment to be seen in about 10-14 days.
[2020-01-25 06:41] LABS: Basophil# 0.04 X10^3/uL; Basophil% 0.5 % (0-1); Eosinophil# 0.44 X10^3/uL; Eosinophils% 5.9 % (0-5); Hematocrit 36.4 % (40-54); Lymphocyte % 13.4 % (19-41); Mean Corpuscular Hgb 30.7 pg (27.0-32.0); Mean Corpuscular Volume 93.1 fL (80-94); Mean Platelet Vol. 9.2 fl (6.2-12.0); Monocyte# 0.97 X10^3/uL; NRBC Flagged by Analyzer 0 % (0-5); Neutrophil # 4.97 X10^3/uL (2.7-7.7); Neutrophil % 66.8 % (47-70); Platelet Count 201 K/mm3 (150-450); RBC Distribution Width CV 12.8 % (11.6-14.6); RBC Distribution Width SD 43.8 fl (35.1-43.9); Red Blood Count 3.91 M/mm3 (4.6-6.2); White Blood Count 7.5 K/mm3 (4.4-11.0)
[2020-01-25] MEDS: Vancomycin IV 500 MG/100 ML BAG 100 MG IV (06:42)
[2020-01-25 06:57] LABS: Anion Gap 5 (5-15); BUN 23 mg/dL (7-18); BUN/Creat Ratio 14.9 RATIO (10-20); Calcium,Total 9.1 mg/dL (8.5-10.1); Chloride 107 mmol/L (98-107); Creatinine, Serum 1.54 mg/dL (0.70-1.30); EST Glomerular Filtration Rate 46 mL/min (>60); Est Glom Filt Rate - Afr Amer 56 mL/min (>60); Estimated Creatinine Clearance 39.19 ml/min; Glucose 96 mg/dL (74-106); Potassium 4.3 mmol/L (3.5-5.1); Sodium Level 140 mmol/L (136-145); Vancomycin, Trough Level 9.1 ug/mL (5.0-15.0)
--- NOTE | 2020-01-25 07:42 | PCM.PN.SRG ---
Patient Problems: Active and Suspected Problems (Last Reviewed 08/31/19 @ 08:49 by Ada Shafer) Peripheral arterial occlusive disease (Acute) Osteomyelitis (Acute) Subjective: patient seen at bedside this morning without complaints. pain is controlled Objective: patient is alert and orientated and does not appear in any distress right foot with surgical wound open. there is no drainage. the skin color appears normal without necrotic changes or erythema. right foot appears stable. wound margins appear viable. no calf pain is noted. - Physical Exam Vitals/I&O's: Vital Signs Temp Pulse Resp BP Pulse Ox 97.9 F 61 18 149/80 H 94 01/25/20 02:20 01/25/20 02:20 01/25/20 02:20 01/25/20 02:20 01/25/20 02:20 Oxygen Delivery Method Room Air Weight: 78.38 kg Body Mass Index (BMI) 23.4 Intake and Output for Last 24 Hours 01/23/20 01/24/20 01/25/20 23:59 23:59 23:59 Intake Total 868.59 / 968.59 2794.00 / 2894.00 286.5 / 286.5 Output Total 500 / 600 525 / 525 Balance 868.59 / 768.59 2294.00 / 2294.00 -238.5 / -238.5 Microbiology Past 72 Hours 01/23/20 18:32 Bone - Other Gram Stain - Final 01/23/20 18:32 Bone - Other Wound Culture - Preliminary No growth-Final to follow 01/23/20 18:30 Bone - Other Gram Stain - Final 01/23/20 18:30 Bone - Other Wound Culture - Preliminary Gram variable kal Laboratory Results 01/24/20 15:13: Hemoglobin A1c 5.8 01/24/20 15:13: WBC 6.7, RBC 3.90 L, Hgb 11.6 L, Hct 36.2 L, MCV 92.8, MCH 29.7, MCHC 32.0, RDW Std Deviation 44.1 H, RDW Coeff of Priya 13.0, Plt Count 212, MPV 9.5, Immature Gran % (Auto) 0.200, Neut % (Auto) 69.3, Lymph % (Auto) 11.6 L, [place] % (Auto) 12.3 H, Eos % (Auto) 6.0 H, Baso % (Auto) 0.6, Absolute Neuts (auto) 4.6, Absolute Lymphs (auto) 0.77 L, Nucleated RBC % 0 01/24/20 15:13: Sodium 137, Potassium 4.5, Chloride 106, Carbon Dioxide 28.0, Anion Gap 3 L, BUN 24 H, Creatinine 1.61 H, Estim Creat Clear Calc 37.49, Est GFR (MDRD) Af Amer 53 L, Est GFR (MDRD) Non-Af 44 L, BUN/Creatinine Ratio 14.9, Glucose 103, Calcium 8.9 01/25/20 06:25: Vancomycin Trough 9.1 01/25/20 06:25: WBC 7.5, RBC 3.91 L, Hgb 12.0 L, Hct 36.4 L, MCV 93.1, MCH 30.7, MCHC 33.0, RDW Std Deviation 43.8, RDW Coeff of Priya 12.8, Plt Count 201, MPV 9.2, Immature Gran % (Auto) 0.400, Neut % (Auto) 66.8, Lymph % (Auto) 13.4 L, [place] % (Auto) 13.0 H, Eos % (Auto) 5.9 H, Baso % (Auto) 0.5, Absolute Neuts (auto) 5.0, Absolute Lymphs (auto) 1.00, Nucleated RBC % 0 01/25/20 06:25: Sodium 140, Potassium 4.3, Chloride 107, Carbon Dioxide 28.0, Anion Gap 5, BUN 23 H, Creatinine 1.54 H, Estim Creat Clear Calc 39.19, Est GFR (MDRD) Af Amer 56 L, Est GFR (MDRD) Non-Af 46 L, BUN/Creatinine Ratio 14.9, Glucose 96, Calcium 9.1 Current Medications Allopurinol (Zyloprim) 300 mg PO DAILYCM [facility] Clopidogrel Bisulfate (Plavix) 75 mg PO DAILY [facility] Donepezil HCl (Aricept) 10 mg PO QHS [facility] Last Admin: 01/24/20 21:25 Dose: 10 mg Documented by: Famotidine (Pepcid) 20 mg PO DAILY [facility] Finasteride (Proscar) 5 mg PO DAILY [facility] Gabapentin (Neurontin) 300 mg PO DAILYCM [facility] Sodium Chloride () 250 mls @ 15 mls/hr IV .[id number] PRN PRN Reason: Saline Flush Last Admin: 01/25/20 05:53 Dose: 15 mls/hr Documented by: Sodium Chloride () 250 mls @ 15 mls/hr IV .[id number] PRN PRN Reason: Additional IVPB Infusion Last Infusion: 01/24/20 19:35 Dose: 15 mls/hr Documented by: Piperacillin Sod/Tazobactam (Sod 3.375 gm/ Sodium Chloride) 50 mls @ 12.5 mls/hr IV Q8 [facility] Last Admin: 01/25/20 05:53 Dose: 12.5 mls/hr Documented by: Vancomycin IV Pharmacy to Dose (1 ea/ Sodium Chloride) 500 mls @ 250 mls/hr IV X1 PRN; Protocol PRN Reason: Rx to Dose Vancomycin HCl () 500 mg in 100 mls @ 100 mls/hr IV Q12H [facility] Last Admin: 01/25/20 06:42 Dose: 100 mls/hr Documented by: Levothyroxine Sodium (Synthroid) 150 mcg PO DAILY@0600 [facility] Last Admin: 01/25/20 05:56 Dose: 150 mcg Documented by: Multivitamins (Multivitamin) [facility] Multivitamins/Minerals (Healthy Eyes (Bkc)) [facility] capsule [facility] Nitroglycerin (Nitrostat) 0.4 mg SUBLINGUAL Q5M PRN PRN Reason: CHEST Nutritional Formula (Lactose Free) (Glucerna Shake) 120 ml PO TIDCM [facility] Last Admin: 01/24/20 15:57 Dose: Not Given Documented by: Oxycodone HCl (Oxyir) 5 mg PO Q4H PRN PRN PRN Reason: Pain Score 6-10/10 Last Admin: 01/24/20 06:50 Dose: 5 mg Documented by: Polyethylene Glycol (Miralax) 17 gm PO DAILY PRN PRN Reason: Constipation Pravastatin Sodium (Pravachol) 40 mg PO QHS [facility] Last Admin: 01/24/20 21:25 Dose: 40 mg Documented by: Sodium Chloride () 10 - 40 ml IV UD PRN PRN Reason: SALINE FLUSH Last Admin: 01/24/20 18:33 Dose: 10 ml Documented by: Tamsulosin HCl (Flomax) 0.4 mg PO DAILY@0830 [facility] Medical Necessity - Tobacco Use Smoking Status: Never smoker Assessment/Plan All Active Problems (Last Reviewed 08/31/19 @ 08:49 by Ada Shafer) Peripheral arterial occlusive disease (Acute) Osteomyelitis (Acute) Esophageal reflux (Acute) Internal hemorrhoids (Resolved) patient was examined and informed of current findings. wound was irrigated today under sterile technique. the wound does appear viable without necrotic changes. there are no local signs of infection at this time. currently, + bacteria present to proximal phalanx but no bacteria found on 5th metatarsal. continue with antibiotics at this time. possible delayed closure tomorrow. patient is permitted partial weightbearing to right heel . will order post-op shoe
--- NOTE | 2020-01-25 07:54 | NURSING ---
Dressing changed per Dr Aceves this am.
[2020-01-25 08:33] VITALS: BP 154/85; PULSE 60; RESP 16; TEMP 37.3; O2SAT 97
[2020-01-25] MEDS: Gabapentin 300 MG Capsule PO (08:52)
[2020-01-25] MEDS: Allopurinol 300 MG Tablet PO (08:52)
[2020-01-25] MEDS: Multivitamin (Healthy Eyes) Capsule 1 CAP PO (08:52)
[2020-01-25] MEDS: Glucerna Shake 120 ML LIQUID PO ×2 (08:52→11:47)
[2020-01-25] MEDS: Tamsulosin HCl 0.4 MG Capsule PO (08:52)
[2020-01-25] MEDS: Multivitamins,Therapeutic Tablet 1 TABLET PO (08:52)
--- NOTE | 2020-01-25 09:36 | PCM.RX.CS ---
Consult Pharmacy has been consulted to manage selected antiobiotic: Vancomycin Type of Consult: Follow-up Suspected Infection: Osteomyelitis Prior Doses of Antibiotics Received/Current Regimen: Has been on 500mg iv q12h. Labs: Sodium 140 mmol/L (136-145) 01/25/20 06:25 Potassium 4.3 mmol/L (3.5-5.1) 01/25/20 06:25 Chloride 107 mmol/L (98-107) 01/25/20 06:25 Carbon Dioxide 28.0 mmol/L (21.0-32.0) 01/25/20 06:25 Anion Gap 5 (5-15) 01/25/20 06:25 BUN 23 mg/dL (7-18) H 01/25/20 06:25 Creatinine 1.54 mg/dL (0.70-1.30) H 01/25/20 06:25 Est GFR (MDRD) Af Amer 56 mL/min (>60) L 01/25/20 06:25 Est GFR (MDRD) Non-Af 46 mL/min (>60) L 01/25/20 06:25 BUN/Creatinine Ratio 14.9 RATIO (10-20) 01/25/20 06:25 Glucose 96 mg/dL (74-106) 01/25/20 06:25 Vancomycin Trough 9.1 ug/mL (5.0-15.0) 01/25/20 06:25 Microbiology: Microbiology 01/23/20 18:32 Bone - Other Gram Stain - Final 01/23/20 18:32 Bone - Other Wound Culture - Preliminary No growth-Final to follow 01/23/20 18:30 Bone - Other Gram Stain - Final 01/23/20 18:30 Bone - Other Wound Culture - Preliminary Gram variable kal Weight used for dosin.4 kg Estimated Creatinine Clearance: ~39ml/min Goal Trough: 15-20 mcg/mL Pharmacy Plan for Drug Dosing: Trough level today was 9.1 (goal 15-20mcg/ml). Renal function Cr 1.54, CrCl ~39ml/min. Will increase dose to 750mg iv q12h and get another trough level before 4th dose of new regimen. Pharmacy Service will continue to monitor and adjust dosing as required. Follow-Up Labs: Trough Vancomycin - 3.7.20 @0530 before 0600 dose
[2020-01-25] MEDS: Clopidogrel Bisulfate 75 MG Tablet PO (09:41)
[2020-01-25] MEDS: Famotidine 20 MG Tablet PO (09:41)
[2020-01-25] MEDS: Finasteride 5 MG Tablet PO (09:42)
--- NOTE | 2020-01-25 09:42 | PCM.PN.ID ---
Patient Problems: Active and Suspected Problems (Last Reviewed 08/31/19 @ 08:49 by Ada Shafer) Peripheral arterial occlusive disease (Acute) Osteomyelitis (Acute) Subjective: Feeling ok, no fever, no n/v/d. - Physical Exam Vitals/I&O's: Vital Signs Temp Pulse Resp BP Pulse Ox 99.1 F 60 16 154/85 H 97 01/25/20 08:33 01/25/20 08:33 01/25/20 08:33 01/25/20 08:33 01/25/20 08:33 Oxygen Delivery Method Room Air Weight: 78.38 kg Body Mass Index (BMI) 23.4 Intake and Output for Last 24 Hours 01/23/20 01/24/20 01/25/20 23:59 23:59 23:59 Intake Total 868.59 / 968.59 2794.00 / 2894.00 286.5 / 286.5 Output Total 500 / 600 525 / 525 Balance 868.59 / 768.59 2294.00 / 2294.00 -238.5 / -238.5 General: Alert, Cooperative, No apparent distress Lungs: Clear to auscultation, Normal air movement Cardiovascular: Regular rate, Regular Rhythm, Murmur Abdomen: Soft, Non Tender, Non-Distended Skin: Ulcer/ Wound - R foot wrapped Microbiology Past 72 Hours 01/23/20 18:32 Bone - Other Gram Stain - Final 01/23/20 18:32 Bone - Other Wound Culture - Preliminary No growth-Final to follow 01/23/20 18:30 Bone - Other Gram Stain - Final 01/23/20 18:30 Bone - Other Wound Culture - Preliminary Gram variable kal Laboratory Results 01/24/20 15:13: Hemoglobin A1c 5.8 01/24/20 15:13: WBC 6.7, RBC 3.90 L, Hgb 11.6 L, Hct 36.2 L, MCV 92.8, MCH 29.7, MCHC 32.0, RDW Std Deviation 44.1 H, RDW Coeff of Priya 13.0, Plt Count 212, MPV 9.5, Immature Gran % (Auto) 0.200, Neut % (Auto) 69.3, Lymph % (Auto) 11.6 L, [place] % (Auto) 12.3 H, Eos % (Auto) 6.0 H, Baso % (Auto) 0.6, Absolute Neuts (auto) 4.6, Absolute Lymphs (auto) 0.77 L, Nucleated RBC % 0 01/24/20 15:13: Sodium 137, Potassium 4.5, Chloride 106, Carbon Dioxide 28.0, Anion Gap 3 L, BUN 24 H, Creatinine 1.61 H, Estim Creat Clear Calc 37.49, Est GFR (MDRD) Af Amer 53 L, Est GFR (MDRD) Non-Af 44 L, BUN/Creatinine Ratio 14.9, Glucose 103, Calcium 8.9 01/25/20 06:25: Vancomycin Trough 9.1 01/25/20 06:25: WBC 7.5, RBC 3.91 L, Hgb 12.0 L, Hct 36.4 L, MCV 93.1, MCH 30.7, MCHC 33.0, RDW Std Deviation 43.8, RDW Coeff of Priya 12.8, Plt Count 201, MPV 9.2, Immature Gran % (Auto) 0.400, Neut % (Auto) 66.8, Lymph % (Auto) 13.4 L, [place] % (Auto) 13.0 H, Eos % (Auto) 5.9 H, Baso % (Auto) 0.5, Absolute Neuts (auto) 5.0, Absolute Lymphs (auto) 1.00, Nucleated RBC % 0 01/25/20 06:25: Sodium 140, Potassium 4.3, Chloride 107, Carbon Dioxide 28.0, Anion Gap 5, BUN 23 H, Creatinine 1.54 H, Estim Creat Clear Calc 39.19, Est GFR (MDRD) Af Amer 56 L, Est GFR (MDRD) Non-Af 46 L, BUN/Creatinine Ratio 14.9, Glucose 96, Calcium 9.1 Current [facility] Last Admin: 01/25/20 08:52 Dose: 300 mg Documented by: Clopidogrel Bisulfate (Plavix) 75 mg PO DAILY [facility] Donepezil HCl (Aricept) 10 mg PO QHS [facility] Last Admin: 01/24/20 21:25 Dose: 10 mg Documented by: Famotidine (Pepcid) 20 mg PO DAILY [facility] Finasteride (Proscar) 5 mg PO DAILY [facility] Gabapentin ([facility]in) [facility] Last Admin: 01/25/20 08:52 Dose: 300 mg Documented by: Sodium Chloride () 250 mls @ 15 mls/hr IV .[id number] PRN PRN Reason: Saline Flush Last Admin: 01/25/20 05:53 Dose: 15 mls/hr Documented by: Sodium Chloride () 250 mls @ 15 mls/hr IV .[id number] PRN PRN Reason: Additional IVPB Infusion Last Infusion: 01/24/20 19:35 Dose: 15 mls/hr Documented by: Piperacillin Sod/Tazobactam (Sod 3.375 gm/ Sodium Chloride) 50 mls @ 12.5 mls/hr IV Q8 [facility] Last Admin: 01/25/20 05:53 Dose: 12.5 mls/hr Documented by: Vancomycin IV Pharmacy to Dose (1 ea/ Sodium Chloride) 500 mls @ 250 mls/hr IV X1 PRN; Protocol PRN Reason: Rx to Dose Vancomycin HCl 750 mg/ Sodium (Chloride) 265 mls @ 250 mls/hr IV Q12H [facility] Levothyroxine Sodium (Synthroid) 150 mcg PO DAILY@0600 [facility] Last Admin: 01/25/20 05:56 Dose: 150 mcg Documented by: Multivitamins ([facility]amin) [facility] Last Admin: 01/25/20 08:52 Dose: 1 tablet Documented by: Multivitamins/Minerals (Healthy Eyes (Bkc)) [facility] Last Admin: 01/25/20 08:52 Dose: 1 capsule Documented by: Nitroglycerin (Nitrostat) 0.4 mg SUBLINGUAL Q5M PRN PRN Reason: CHEST Nutritional Formula (Lactose Free) (Glucerna Shake) 120 ml PO TIDCM [facility] Last Admin: 01/25/20 08:52 Dose: 120 ml Documented by: Oxycodone HCl (Oxyir) 5 mg PO Q4H PRN PRN PRN Reason: Pain Score 6-10/10 Last Admin: 01/24/20 06:50 Dose: 5 mg Documented by: Polyethylene Glycol (Miralax) 17 gm PO DAILY PRN PRN Reason: Constipation Pravastatin Sodium (Pravachol) 40 mg PO QHS [facility] Last Admin: 01/24/20 21:25 Dose: 40 mg Documented by: Sodium Chloride () 10 - 40 ml IV UD PRN PRN Reason: SALINE FLUSH Last Admin: 01/24/20 18:33 Dose: 10 ml Documented by: Tamsulosin HCl (Flomax) 0.4 mg PO DAILY@0830 [facility] Last Admin: 01/25/20 08:52 Dose: 0.4 mg Documented by: Medical Necessity - Tobacco Use Smoking Status: Never smoker Route of nutrition/ use of supplements: [] Nutritional Intake: [] IV Site: [] Hummel Catheter: [] - Assessment/Plan Antibiotics: [] Assessment/Plan: [] Active and Suspected Problems (Last Reviewed 08/31/19 @ 08:49 by Ada Shafer) Peripheral arterial occlusive disease (Acute) R 5th toe osteo - now s/p amputation by Dr. Aceves 01/22. Clearance cx neg so far, surg cx with Gram variable rods. No fever, normal wbc. Cont vanc/zosyn. Closure planned for 01/25. If clearance cx remains neg and no signs of ongoing infection in the OR, plan will be for short course of po abx at discharge. Will follow
--- NOTE | 2020-01-25 09:54 | PN_ITS ---
Patient Problems: Active and Suspected Problems (Last Reviewed 08/31/19 @ 08:49 by Ada Shafer) Peripheral arterial occlusive disease (Acute) Osteomyelitis (Acute) Reason for Visit: Follow-upon right toe gangrene/abscess, s/p right toe amputation Subjective: Patient was seen and examined. Denied any new complaints. Objective: Physical exam: General: Alert, Oriented x3, Cooperative, No apparent distress HEENT: Atraumatic, PERRLA, EOMI, Normocephalic Oral: Moist Mucosa Neck: Supple Lungs: Clear to auscultation, Normal air movement Cardiovascular: Regular rate, Regular Rhythm, Normal S1, Normal S2, Murmur - 3/6 holosystolic murmur Abdomen: Bowel Sounds Present, Soft, Non Tender, Non-Distended, No Hepato- splenomegaly Extremities:Dressing over right foot, RAVEN wrapped Musculoskeletal: No Tenderness to Palpation of Joints or Extremities Lymphatic: No Cervical, Supraclavicular, or Inguinal Adenopathy Neurological: Cranial nerves II-XII grossly intact, Neuro grossly intact Psych/Mental Status: Normal Affect, Appropriate Vitals/I&O's: Vital Signs Temp Pulse Resp BP Pulse Ox 99.1 F 60 16 154/85 H 97 01/25/20 08:33 01/25/20 08:33 01/25/20 08:33 01/25/20 08:33 01/25/20 08:33 Oxygen Delivery Method Room Air Weight: 78.38 kg Body Mass Index (BMI) 23.4 Intake and Output for Last 24 Hours 01/23/20 01/24/20 01/25/20 23:59 23:59 23:59 Intake Total 868.59 / 968.59 2794.00 / 2894.00 286.5 / 286.5 Output Total 500 / 600 525 / 525 Balance 868.59 / 768.59 2294.00 / 2294.00 -238.5 / -238.5 Microbiology Past 72 Hours 01/23/20 18:32 Bone - Other Gram Stain - Final 01/23/20 18:32 Bone - Other Wound Culture - Preliminary No growth-Final to follow 01/23/20 18:30 Bone - Other Gram Stain - Final 01/23/20 18:30 Bone - Other Wound Culture - Preliminary Gram variable kal Laboratory Results 01/24/20 15:13: Hemoglobin A1c 5.8 01/24/20 15:13: WBC 6.7, RBC 3.90 L, Hgb 11.6 L, Hct 36.2 L, MCV 92.8, MCH 29.7, MCHC 32.0, RDW Std Deviation 44.1 H, RDW Coeff of Priya 13.0, Plt Count 212, MPV 9.5, Immature Gran % (Auto) 0.200, Neut % (Auto) 69.3, Lymph % (Auto) 11.6 L, [place] % (Auto) 12.3 H, Eos % (Auto) 6.0 H, Baso % (Auto) 0.6, Absolute Neuts (auto) 4.6, Absolute Lymphs (auto) 0.77 L, Nucleated RBC % 0 01/24/20 15:13: Sodium 137, Potassium 4.5, Chloride 106, Carbon Dioxide 28.0, Anion Gap 3 L, BUN 24 H, Creatinine 1.61 H, Estim Creat Clear Calc 37.49, Est GFR (MDRD) Af Amer 53 L, Est GFR (MDRD) Non-Af 44 L, BUN/Creatinine Ratio 14.9, Glucose 103, Calcium 8.9 01/25/20 06:25: Vancomycin Trough 9.1 01/25/20 06:25: WBC 7.5, RBC 3.91 L, Hgb 12.0 L, Hct 36.4 L, MCV 93.1, MCH 30.7, MCHC 33.0, RDW Std Deviation 43.8, RDW Coeff of Priya 12.8, Plt Count 201, MPV 9.2, Immature Gran % (Auto) 0.400, Neut % (Auto) 66.8, Lymph % (Auto) 13.4 L, [place] % (Auto) 13.0 H, Eos % (Auto) 5.9 H, Baso % (Auto) 0.5, Absolute Neuts (auto) 5.0, Absolute Lymphs (auto) 1.00, Nucleated RBC % 0 01/25/20 06:25: Sodium 140, Potassium 4.3, Chloride 107, Carbon Dioxide 28.0, Anion Gap 5, BUN 23 H, Creatinine 1.54 H, Estim Creat Clear Calc 39.19, Est GFR (MDRD) Af Amer 56 L, Est GFR (MDRD) Non-Af 46 L, BUN/Creatinine Ratio 14.9, Glucose 96, Calcium 9.1 Current [facility]ations [facility] Last Admin[facility] 01/25/20 08:52 Dose: 300 mg Documented by: Clopidogrel Bisulfate (Plavix) 75 mg PO DAILY [facility] Last Admin: 01/25/20 09:41 Dose: 75 mg Documented by: Donepezil HCl (Aricept) 10 mg PO QHS [facility] Last Admin: 01/24/20 21:25 Dose: 10 mg Documented by: Famotidine (Pepcid) 20 mg PO DAILY [facility] Last Admin: 01/25/20 09:41 Dose: 20 mg Documented by: Finasteride (Proscar) 5 mg PO DAILY [facility] Last Admin: 01/25/20 09:42 Dose: 5 mg Documented by: Gabapentin (Neurontin) [facility] Last Admin: 01/25/20 08:52 Dose: 300 mg Documented by: Sodium Chloride () 250 mls @ 15 mls/hr IV .[id number] PRN PRN Reason: Saline Flush Last Admin: 01/25/20 05:53 Dose: 15 mls/hr Documented by: Sodium Chloride () 250 mls @ 15 mls/hr IV .[id number] PRN PRN Reason: Additional IVPB Infusion Last Infusion: 01/24/20 19:35 Dose: 15 mls/hr Documented by: Piperacillin Sod/Tazobactam (Sod 3.375 gm/ Sodium Chloride) 50 mls @ 12.5 mls/hr IV Q8 [facility] Last Admin: 01/25/20 05:53 Dose: 12.5 mls/hr Documented by: Vancomycin IV Pharmacy to Dose (1 ea/ Sodium Chloride) 500 mls @ 250 mls/hr IV X1 PRN; Protocol PRN Reason: Rx to Dose Vancomycin HCl 750 mg/ Sodium (Chloride) 265 mls @ 250 mls/hr IV Q12H [facility] Levothyroxine Sodium (Synthroid) 150 mcg PO DAILY@0600 [facility] Last Admin: 01/25/20 05:56 Dose: 150 mcg Documented by: Multivitamins (Multivitamin) [facility] Last Admin: 01/25/20 08:52 Dose: 1 tablet Documented by: Multivitamins/Minerals (Healthy Eyes (Bkc)) [facility] Last Admin: 01/25/20 08:52 Dose: 1 capsule Documented by: Nitroglycerin (Nitrostat) 0.4 mg SUBLINGUAL Q5M PRN PRN Reason: CHEST Nutritional Formula (Lactose Free) (Glucerna Shake) 120 ml PO TIDCM [facility] Last Admin: 01/25/20 08:52 Dose: 120 ml Documented by: Oxycodone HCl (Oxyir) 5 mg PO Q4H PRN PRN PRN Reason: Pain Score 6-10/10 Last Admin: 01/24/20 06:50 Dose: 5 mg Documented by: Polyethylene Glycol (Miralax) 17 gm PO DAILY PRN PRN Reason: Constipation Pravastatin Sodium (Pravachol) 40 mg PO QHS [facility] Last Admin: 01/24/20 21:25 Dose: 40 mg Documented by: Sodium Chloride () 10 - 40 ml IV UD PRN PRN Reason: SALINE FLUSH Last Admin: 01/24/20 18:33 Dose: 10 ml Documented by: Tamsulosin HCl (Flomax) 0.4 mg PO DAILY@0830 [facility] Last Admin: 01/25/20 08:52 Dose: 0.4 mg Documented by: STROKE Vital Signs/Narrative: Vital Signs Temp Pulse Resp BP Pulse Ox 01/25/20 08:33 99.1 F 60 16 154/85 H 97 Medical Necessity - Tobacco Use Smoking Status: Never smoker Assessment/Plan All Active Problems (Last Reviewed 08/31/19 @ 08:49 by Ada Shafer) Peripheral arterial occlusive disease (Acute) Osteomyelitis (Acute) Esophageal reflux (Acute) Internal hemorrhoids (Resolved) 1. POD #2, s/p incision and drainage right 5th toe, 5th toe amputation, bone biopsy of right 5th metatarsal for right fifth toe gangrene/osteomyelitis(01/23/20), Hgb A1c 5.8. Wound cultures in the previous toe growing gram variable kal. Culture of 5th metatarsal biopsy negative so far, other intraoperative cultures are pending. Wound closure planned for 01/26/20. Continue on IV vancomycin and Zosyn, ID following 2. PAD, multisegmental disease, on Plavix, outpatient workup and intervention planned for post-discharge Continue to hold aspirin 3. CAD status post CABG, status post stent(2010), no active cardiac complaints Continue on plavix and statin, aspirin on hold 4. History of bilateral carotid endarterectomy, resumed on Plavix and statin, aspirin on hold for now 5. Cognitive impairment; patient is a poor historian, continue on Aricept 6. BPH, continue on Proscar and Flomax 7. Hypertension, controlled, will continue to hold off lisinopril for now 8. Hypothyroidism, continue levothyroxine 9. DVT prophylaxis -per podiatry primary team Inpatient E&M: 24058 Subs Hosp L2
[2020-01-25] MEDS: 0.9% Normal Saline 1,000 ML 75 ML IV (11:40)
[2020-01-25 14:32] VITALS: BP 120/66; PULSE 60; RESP 16; TEMP 37; O2SAT 97
[2020-01-25 19:35] VITALS: BP 133/65; PULSE 64; RESP 18; TEMP 36.9; O2SAT 94
[2020-01-25] MEDS: Donepezil HCl 10 MG Tablet PO (21:54)
[2020-01-25] MEDS: Pravastatin 40 MG Tablet PO (21:54)
[2020-01-26] VITALS (11 sets, daily range): BP systolic 124–159; BP diastolic 63–82; PULSE 60–70; RESP 16–18; TEMP 36.3–37.3; O2SAT 94–98; BMI 23.4
[2020-01-26] MEDS: 0.9% Normal Saline 1,000 ML 75 ML IV (01:42)
[2020-01-26] MEDS: Levothyroxine 150 MCG Tablet PO (05:17)
[2020-01-26 06:17] LABS: Thyroid Stim Hormone (TSH) 3.01 uIU/mL (0.358-3.74)
--- NOTE | 2020-01-26 07:38 | PCM.PN.SRG ---
Patient Problems: Active and Suspected Problems (Last Reviewed 08/31/19 @ 08:49 by Ada Shafer) Peripheral arterial occlusive disease (Acute) Osteomyelitis (Acute) Subjective: patient seen at bedside this morning. patient has no complaints. Objective: patient is alert and orientated x 3. Patient does not appear in any distress. right foot with surgical wound open. there is no drainage. there is no erythema. there does not appear to be any local signs of infection. wound margins appear viable and healthy. there are no signs of necrosis. there is no calf pain. no other ulcerations or signs of skin breakdown noted. - Physical Exam Vitals/I&O's: Vital Signs Temp Pulse Resp BP Pulse Ox 98.0 F 69 16 155/67 H 96 01/26/20 01:37 01/26/20 01:37 01/26/20 01:37 01/26/20 01:37 01/26/20 01:37 Oxygen Delivery Method Room Air Weight: 78.38 kg Body Mass Index (BMI) 23.4 Intake and Output for Last 24 Hours 01/24/20 01/25/20 01/26/20 23:59 23:59 23:59 Intake Total 2794.00 / 2894.00 1723.25 / 1723.25 1083.75 / 1083.75 Output Total 500 / 600 525 / 525 Balance 2294.00 / 2294.00 1198.25 / 1198.25 1083.75 / 1083.75 Microbiology Past 72 Hours 01/23/20 18:32 Bone - Other Gram Stain - Final 01/23/20 18:32 Bone - Other Wound Culture - Preliminary No growth aerobically. 01/23/20 18:30 Bone - Other Gram Stain - Final 01/23/20 18:30 Bone - Other Wound Culture - Preliminary Gram negative kal Laboratory Results 01/26/20 05:30: TSH 3.01 Current Medications [facility] Last Admin: 01/25/20 08:52 Dose: 300 mg Documented by: Clopidogrel Bisulfate (Plavix) 75 mg PO DAILY [facility] Last Admin: 01/25/20 09:41 Dose: 75 mg Documented by: Donepezil HCl (Aricept) 10 mg PO QHS [facility] Last Admin: 01/25/20 21:54 Dose: 10 mg Documented by: Famotidine (Pepcid) 20 mg PO DAILY [facility] Last Admin: 01/25/20 09:41 Dose: 20 mg Documented by: Finasteride (Proscar) 5 mg PO DAILY [facility] Last Admin: 01/25/20 09:42 Dose: 5 mg Documented by: Gabapentin ([facility]urontin) [facility] Last Admin: 01/25/20 08:52 Dose: 300 mg Documented by: Sodium Chloride () 250 mls @ 15 mls/hr IV .[id number] PRN PRN Reason: Saline Flush Last Infusion: 01/25/20 22:34 Dose: Infused Documented by: Sodium Chloride () 250 mls @ 15 mls/hr IV .[id number] PRN PRN Reason: Additional IVPB Infusion Last Infusion: 01/25/20 19:00 Dose: Infused Documented by: Piperacillin Sod/Tazobactam (Sod 3.375 gm/ Sodium Chloride) 50 mls @ 12.5 mls/hr IV Q8 [facility] Last Admin: 01/26/20 06:17 Dose: 12.5 mls/hr Documented by: Vancomycin IV Pharmacy to Dose (1 ea/ Sodium Chloride) 500 mls @ 250 mls/hr IV X1 PRN; Protocol PRN Reason: Rx to Dose Vancomycin HCl 750 mg/ Sodium (Chloride) 265 mls @ 250 mls/hr IV Q12H [facility] Last Infusion: 01/26/20 06:19 Dose: Infused Documented by: Sodium Chloride () 1,000 mls @ 75 mls/hr IV .[id number] [facility] Stop: 01/26/20 08:09 Last Infusion: 01/26/20 06:19 Dose: 75 mls/hr Documented by: Levothyroxine Sodium (Synthroid) 150 mcg PO DAILY@0600 [facility] Last Admin: 01/26/20 05:17 Dose: 150 mcg Documented by: Multivitamins ([facility]itamin) [facility] Last Admin: 01/25/20 08:52 Dose: 1 tablet Documented by: Multivitamins/Minerals (Healthy Eyes (Bkc)) [facility] Last Admin: 01/25/20 08:52 Dose: 1 capsule Documented by: Nitroglycerin (Nitrostat) 0.4 mg SUBLINGUAL Q5M PRN PRN Reason: CHEST Oxycodone HCl (Oxyir) 5 mg PO Q4H PRN PRN PRN Reason: Pain Score 6-10 Last Admin: 01/24/20 06:50 Dose: 5 mg Documented by: Polyethylene Glycol (Miralax) 17 gm PO DAILY PRN PRN Reason: Constipation Pravastatin Sodium (Pravachol) 40 mg PO QHS [facility] Last Admin: 01/25/20 21:54 Dose: 40 mg Documented by: Sodium Chloride () 10 - 40 ml IV UD PRN PRN Reason: SALINE FLUSH Last Admin: 01/24/20 18:33 Dose: 10 ml Documented by: Tamsulosin HCl (Flomax) 0.4 mg PO DAILY@0830 [facility] Last Admin: 01/25/20 08:52 Dose: 0.4 mg Documented by: Medical Necessity - Tobacco Use Smoking Status: Never smoker Assessment/Plan All Active Problems (Last Reviewed 08/31/19 @ 08:49 by Ada Shafer) Peripheral arterial occlusive disease (Acute) Osteomyelitis (Acute) Esophageal reflux (Acute) Internal hemorrhoids (Resolved) patient was examined and informed of current findings. I examined patient foot in presence of his . at this time, the foot appears stable. there is viable wound margins without necrosis. on exam, it appears that there is enough viable soft-tissue/skin to achieve closure without any need for further bone resection. I discussed the benefits of leaving the 5th metatarsal head intact. If bone resection were performed, it could lead to transfer lesions which could certainly place patient at risk of further ulceration. This patient and his would prefer to avoid any further bone resection. at this time, the 5th metatarsal does not show any bacterial growth. Because of this, I will attempt closure without any further bone resection. I will perform delayed closure today. patient understands that if delayed closure is performed and his wound fails to heal, he may require partial 5th ray resection in future. Will continue with antibiotics per ID recommendations. Patient is permitted to apply weight to his right heel. no weight to his forefoot. Possible discharge tomorrow if medically stable and antibiotics arranged.
[2020-01-26 07:52] LABS: Anion Gap 4 (5-15); BUN 20 mg/dL (7-18); Calcium,Total 9.2 mg/dL (8.5-10.1); Chloride 111 mmol/L (98-107); Creatinine, Serum 1.43 mg/dL (0.70-1.30); EST Glomerular Filtration Rate 50 mL/min (>60); Est Glom Filt Rate - Afr Amer 61 mL/min (>60); Estimated Creatinine Clearance 42.21 ml/min; Glucose 97 mg/dL (74-106); Potassium 4.2 mmol/L (3.5-5.1); Sodium Level 140 mmol/L (136-145)
[2020-01-26] MEDS: Finasteride 5 MG Tablet PO (08:58)
[2020-01-26] MEDS: Famotidine 20 MG Tablet PO (08:58)
[2020-01-26] MEDS: Multivitamins,Therapeutic Tablet 1 TABLET PO (08:58)
[2020-01-26] MEDS: Tamsulosin HCl 0.4 MG Capsule PO (08:58)
[2020-01-26] MEDS: Allopurinol 300 MG Tablet PO (08:58)
[2020-01-26] MEDS: Multivitamin (Healthy Eyes) Capsule 1 CAP PO (08:59)
[2020-01-26] MEDS: Gabapentin 300 MG Capsule PO (08:59)
[2020-01-26] MEDS: 0.9% Saline Lock 10 ML Syringe IV (09:34)
--- NOTE | 2020-01-26 14:25 | PCM.PN.ID ---
Patient Problems: Active and Suspected Problems (Last Reviewed 08/31/19 @ 08:49 by Ada Shafer) Peripheral arterial occlusive disease (Acute) Osteomyelitis (Acute) Subjective: Feeling well, OR today for closure. No fever. - Physical Exam Vitals/I&O's: Vital Signs Temp Pulse Resp BP Pulse Ox 99.1 F 62 16 145/71 H 97 01/26/20 13:35 01/26/20 13:35 01/26/20 13:35 01/26/20 13:35 01/26/20 13:35 Oxygen Delivery Method Room Air Weight: 78.38 kg Body Mass Index (BMI) 23.4 Intake and Output for Last 24 Hours 01/24/20 01/25/20 01/26/20 23:59 23:59 23:59 Intake Total 2794.00 / 2894.00 1723.25 / 1723.25 1625.75 / 1625.75 Output Total 500 / 600 525 / 525 Balance 2294.00 / 2294.00 1198.25 / 1198.25 1625.75 / 1625.75 General: Alert, Cooperative, No apparent distress Lungs: Clear to auscultation, Normal air movement Cardiovascular: Regular rate, Regular Rhythm Abdomen: Soft, Non Tender, Non-Distended Skin: Ulcer/ Wound - foot wrapped Microbiology Past 72 Hours 01/23/20 18:32 Bone - Other Gram Stain - Final 01/23/20 18:32 Bone - Other Wound Culture - Preliminary No growth aerobically. 01/23/20 18:32 Bone - Other Anaerobic Culture - Preliminary No growth in 48 hours. 01/23/20 18:30 Bone - Other Gram Stain - Final 01/23/20 18:30 Bone - Other Wound Culture - Final Serratia marcescens Laboratory Results 01/26/20 05:30: TSH 3.01 01/26/20 05:30: Sodium 140, Potassium 4.2, Chloride 111 H, Carbon Dioxide 25.0, Anion Gap 4 L, BUN 20 H, Creatinine 1.43 H, Estim Creat Clear Calc 42.21, Est GFR (MDRD) Af Amer 61, Est GFR (MDRD) Non-Af 50 L, BUN/Creatinine Ratio 14.0, Glucose 97, Calcium 9.2 Current Medications Allopurinol (Zyloprim) 300 mg PO DAILYCM [facility] Last Admin: 01/26/20 08:58 Dose: 300 mg Documented by: Clopidogrel Bisulfate (Plavix) 75 mg PO DAILY [facility] Last Admin: 01/26/20 10:20 Dose: Not Given Documented by: Donepezil HCl (Aricept) 10 mg PO QHS [facility] Last Admin: 01/25/20 21:54 Dose: 10 mg Documented by: Famotidine (Pepcid) 20 mg PO DAILY [facility] Last Admin: 01/26/20 08:58 Dose: 20 mg Documented by: Finasteride (Proscar) 5 mg PO DAILY [facility] Last Admin: 01/26/20 08:58 Dose: 5 mg Documented by: [facility]) [facility] Last Admin: 01/26/20 08:59 Dose: 300 mg Documented by: Sodium Chloride () 250 mls @ 15 mls/hr IV .[id number] PRN PRN Reason: Saline Flush Last Infusion: 01/26/20 13:34 Dose: 0 mls/hr Documented by: Sodium Chloride () 250 mls @ 15 mls/hr IV .[id number] PRN PRN Reason: Additional IVPB Infusion Last Infusion: 01/25/20 19:00 Dose: Infused Documented by: Piperacillin Sod/Tazobactam (Sod 3.375 gm/ Sodium Chloride) 50 mls @ 12.5 mls/hr IV Q8 [facility] Last Admin: 01/26/20 13:31 Dose: 12.5 mls/hr Documented by: Vancomycin IV Pharmacy to Dose (1 ea/ Sodium Chloride) 500 mls @ 250 mls/hr IV X1 PRN; Protocol PRN Reason: Rx to Dose Vancomycin HCl 750 mg/ Sodium (Chloride) 265 mls @ 250 mls/hr IV Q12H [facility] Last Infusion: 01/26/20 06:19 Dose: Infused Documented by: Levothyroxine Sodium (Synthroid) 150 mcg PO DAILY@0600 [facility] Last Admin: 01/26/20 05:17 Dose: 150 mcg Documented by: Multivitamins (Multivitamin) [facility] Last Admin: 01/26/20 08:58 Dose: 1 tablet Documented by: Multivitamins/Minerals (Healthy Eyes (Bkc)) [facility] Last Admin: 01/26/20 08:59 Dose: 1 capsule Documented by: Nitroglycerin (Nitrostat) 0.4 mg SUBLINGUAL Q5M PRN PRN Reason: CHEST Oxycodone HCl (Oxyir) 5 mg PO Q4H PRN PRN PRN Reason: Pain Score 6-10/10 Last Admin: 01/24/20 06:50 Dose: 5 mg Documented by: Polyethylene Glycol (Miralax) 17 gm PO DAILY PRN PRN Reason: Constipation Pravastatin Sodium (Pravachol) 40 mg PO QHS [facility] Last Admin: 01/25/20 21:54 Dose: 40 mg Documented by: Sodium Chloride () 10 - 40 ml IV UD PRN PRN Reason: SALINE FLUSH Last Admin: 01/26/20 09:34 Dose: 10 ml Documented by: Tamsulosin HCl (Flomax) 0.4 mg PO DAILY@0830 [facility] Last Admin: 01/26/20 08:58 Dose: 0.4 mg Documented by: Medical Necessity - Tobacco Use Smoking Status: Never smoker Route of nutrition/ use of supplements: [] Nutritional Intake: [] IV Site: [] Hummel Catheter: [] - Assessment/Plan Antibiotics: [] Assessment/Plan: [] Active and Suspected Problems (Last Reviewed 08/31/19 @ 08:49 by Ada Shafer) 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 Aceves 01/22. Clearance cx neg so far, surg cx with serratia. No fever, normal wbc. Cont zosyn. Will stop vanc. Closure planned for 01/25. If clearance cx remains neg and no signs of ongoing infection in the OR, plan will be for 3 days of omnicef 300mg bid at discharge. Will follow, d/w family preservation caseworker
--- NOTE | 2020-01-26 15:29 | CASEMGMT ---
RN CM in to discuss discharge planning. Patient and denying HHC at discharge if patient goes on oral ATB. Patient will need walker and prefers [facility]. RN CM received script and referral made to [facility] and walker will be delivered to patient's room.
--- NOTE | 2020-01-26 17:14 | PCM.PN.HOSP ---
Patient Problems: Active and Suspected Problems (Last Reviewed 08/31/19 @ 08:49 by Ada Shafer) Peripheral arterial occlusive disease (Acute) Osteomyelitis (Acute) Reason for Visit: Follow-upon right toe gangrene/abscess, s/p right toe amputation Subjective: Patient was seen and examined. He feels well. No fever or chills. No acute events overnight. Objective: Physical exam: General: Alert, Oriented x3, Cooperative, No apparent distress HEENT: Atraumatic, PERRLA, EOMI, Normocephalic Oral: Moist Mucosa Neck: Supple Lungs: Clear to auscultation, Normal air movement Cardiovascular: Regular rate, Regular Rhythm, Normal S1, Normal S2, Murmur - 3/6 holosystolic murmur Abdomen: Bowel Sounds Present, Soft, Non Tender, Non-Distended, No Hepato-splenomegaly Extremities:Dressing over right foot, RAVEN wrapped Musculoskeletal: No Tenderness to Palpation of Joints or Extremities Lymphatic: No Cervical, Supraclavicular, or Inguinal Adenopathy Neurological: Cranial nerves II-XII grossly intact, Neuro grossly intact Psych/Mental Status: Normal Affect, Appropriate Vitals/I&O's: Vital Signs Temp Pulse Resp BP Pulse Ox 97.8 F 65 16 146/76 H 95 01/26/20 17:03 01/26/20 17:03 01/26/20 17:03 01/26/20 17:03 01/26/20 17:03 Oxygen Delivery Method Room Air Weight: 78.38 kg Body Mass Index (BMI) 23.4 Intake and Output for Last 24 Hours 01/24/20 01/25/20 01/26/20 23:59 23:59 23:59 Intake Total 2794.00 / 2894.00 1723.25 / 1723.25 1675.75 / 1675.75 Output Total 500 / 600 525 / 525 Balance 2294.00 / 2294.00 1198.25 / 1198.25 1675.75 / 1675.75 Microbiology Past 72 Hours 01/23/20 18:32 Bone - Other Gram Stain - Final 01/23/20 18:32 Bone - Other Wound Culture - Preliminary No growth aerobically. 01/23/20 18:32 Bone - Other Anaerobic Culture - Preliminary No growth in 48 hours. 01/23/20 18:30 Bone - Other Gram Stain - Final 01/23/20 18:30 Bone - Other Wound Culture - Final Serratia marcescens Laboratory Results 01/26/20 05:30: TSH 3.01 01/26/20 05:30: Sodium 140, Potassium 4.2, Chloride 111 H, Carbon Dioxide 25.0, Anion Gap 4 L, BUN 20 H, Creatinine 1.43 H, Estim Creat Clear Calc 42.21, Est GFR (MDRD) Af Amer 61, Est GFR (MDRD) Non-Af 50 L, BUN/Creatinine Ratio 14.0, Glucose 97, Calcium 9.2 [facility] Admin: 01/26/20 08:58 Dose: 300 mg Documented by: Clopidogrel Bisulfate (Plavix) 75 mg PO DAILY [facility] Last Admin: 01/26/20 10:20 Dose: Not Given Documented by: Donepezil HCl (Aricept) 10 mg PO QHS [facility] Last Admin: 01/25/20 21:54 Dose: 10 mg Documented by: Famotidine (Pepcid) 20 mg PO DAILY [facility] Last Admin: 01/26/20 08:58 Dose: 20 mg Documented by: Finasteride (Proscar) 5 mg PO DAILY [facility] Last Admin: 01/26/20 08:58 Dose: 5 mg Documented by: [facility]) [facility] Admin: 01/26/20 08:59 Dose: 300 mg Documented by: Sodium Chloride () 250 mls @ 15 mls/hr IV .[id number] PRN PRN Reason: Saline Flush Last Infusion: 01/26/20 13:34 Dose: 0 mls/hr Documented by: Sodium Chloride () 250 mls @ 15 mls/hr IV .[id number] PRN PRN Reason: Additional IVPB Infusion Last Infusion: 01/25/20 19:00 Dose: Infused Documented by: Piperacillin Sod/Tazobactam (Sod 3.375 gm/ Sodium Chloride) 50 mls @ 12.5 mls/hr IV Q8 [facility] Last Infusion: 01/26/20 17:10 Dose: Infused Documented by: Levothyroxine Sodium (Synthroid) 150 mcg PO DAILY@0600 [facility] Last Admin: 01/26/20 05:17 Dose: 150 mcg Documented by: Multivitamins ([facility]amin) [facility] Last Admin: 01/26/20 08:58 Dose: 1 tablet Documented by: Multivitamins/Minerals (Healthy Eyes (Bkc)) [facility] Last Admin: 01/26/20 08:59 Dose: 1 capsule Documented by: Nitroglycerin (Nitrostat) 0.4 mg SUBLINGUAL Q5M PRN PRN Reason: CHEST Oxycodone HCl (Oxyir) 5 mg PO Q4H PRN PRN PRN Reason: Pain Score 6-10/10 Last Admin: 01/24/20 06:50 Dose: 5 mg Documented by: Polyethylene Glycol (Miralax) 17 gm PO DAILY PRN PRN Reason: Constipation Pravastatin Sodium (Pravachol) 40 mg PO QHS [facility] Last Admin: 01/25/20 21:54 Dose: 40 mg Documented by: Sodium Chloride () 10 - 40 ml IV UD PRN PRN Reason: SALINE FLUSH Last Admin: 01/26/20 09:34 Dose: 10 ml Documented by: Tamsulosin HCl (Flomax) 0.4 mg PO DAILY@0830 [facility] Last Admin: 01/26/20 08:58 Dose: 0.4 mg Documented by: STROKE Vital Signs/Narrative: Vital Signs Temp Pulse Resp BP Pulse Ox 01/26/20 17:03 97.8 F 65 16 146/76 H 95 01/26/20 16:58 62 16 150/77 H 98 01/26/20 16:53 64 16 137/78 H 96 01/26/20 16:48 97.3 F L 70 16 139/75 H 98 01/26/20 15:20 98.0 F 60 16 159/82 H 97 01/26/20 13:35 99.1 F 62 16 145/71 H 97 Medical Necessity - Tobacco Use Smoking Status: Never smoker Assessment/Plan All Active Problems (Last Reviewed 08/31/19 @ 08:49 by Ada Shafer) Peripheral arterial occlusive disease (Acute) Osteomyelitis (Acute) Esophageal reflux (Acute) Internal hemorrhoids (Resolved) 1. POD #3, s/p incision and drainage right 5th toe, 5th toe amputation, bone biopsy of right 5th metatarsal for right fifth toe gangrene/osteomyelitis(01/23/20), Hgb A1c 5.8. Wound cultures in the previous toe growing gram variable kal. Culture of 5th metatarsal biopsy negative so far, other intraoperative cultures are pending. Wound closure planned for today 01/26/20. Continue on IV vancomycin and Zosyn, ID following 2. PAD, multisegmental disease, on Plavix, outpatient workup and intervention planned for post-discharge Continue to hold aspirin 3. CAD status post CABG, status post stent(2010), no active cardiac complaints Continue on plavix and statin, aspirin on hold 4. History of bilateral carotid endarterectomy, resumed on Plavix and statin, aspirin on hold for now 5. Cognitive impairment; patient is a poor historian, continue on Aricept 6. BPH, continue on Proscar and Flomax 7. Hypertension, controlled, will continue to hold off lisinopril for now 8. Hypothyroidism, continue levothyroxine 9. DVT prophylaxis -per podiatry primary team Inpatient E&M: 25545 Subs Hosp L2
--- NOTE | 2020-01-26 18:02 | RAD_ITS ---
STUDY: X-RAY - RIGHT FOOT CLINICAL: Male, 84 years old. POST OP RIGHT FOOT DELAYED CLOSURE TECHNIQUE: 3 view(s) of the foot. COMPARISON: Prior right foot radiographs of January 23, 2020 and April 07, 2010 FINDINGS: Pes planus. Plantar spur of the calcaneus. 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 Normal navicular, cuboid and cuneiform tarsals. Prior healed mid diaphyseal fracture of the second metatarsal. Chronic deformity of the distal first metatarsal and first metatarsophalangeal joint status post hallux valgus correction. 1 screw crosses obliquely through the proximal diaphysis of the proximal phalanx of the great toe unchanged from the prior exam. Stable advanced degenerative changes and cyst formation in the interphalangeal joint of the first toe. Fusion of the proximal and mid phalanx of the second toe with an unremarkable distal phalanx. Unchanged from prior exam. Chronic deformity of the distal end of the proximal phalanx of the third toe and a chronic deformity of a fused middle and distal phalanx of the third toe unchanged from prior exam. Status post previous amputation of the fourth toe with an unremarkable fourth metatarsal. Status post recent amputation of the fifth toe with no change in the appearance of the fifth metatarsal. There continues to be soft tissue irregularity and air and the postoperative soft tissues. RAD/Foot min 3 Views IMPRESSION: Presumed recent amputation of the fifth toe with continued soft tissue irregularity and air in the soft tissue without underlying change in the appearance of the fifth metatarsal. Negative for osteolytic or blastic bone changes. Other chronic deformity as described above stable from prior exam. Electronically Signed: Augustina Ordoñez MD at 19:28 EST , Service support ,
--- NOTE | 2020-01-26 20:53 | PCM.OPRPT ---
Report of Operation Date of Procedure: 01/26/20 Pre-Operative Diagnosis: open wound of toe. osteomyelitis of right foot Post-Operative Diagnosis: same as pre-operative diagnosis Surgery/Procedure Performed:: delayed closure of right foot wound Description of Surgical Findings:: good viable tissue without purulence. right 5th metatarsal appears healthy adequate soft-tissue/skin present for closure without tension Type of Anesthesia:: Local MAC Estimated Blood Loss (mL): 3 ml Description of Procedure: Patient is a pleasant 84 year old male who underwent 5th toe amputation of right foot on WednesdayJanuary 22. Intra-operative cultures of 5th toe proximal phalanx is positive for osteomyelitis via culture however, 5th metatarsal has no growth. Prior to surgery today, the wound was evaluated and the open wound appears healthy with viable soft-tissue and what appears to be adequate soft-tissue coverage for closure. I discussed options with patient and his . at this time, given the clean nature of 5th metatarsal and presence of what appears to be adequate tissue for closure, I discussed options including but not limited to delayed closure of foot wound with or without partial 5th ray resection. I informed family that if the 5th metatarsal head was resected, there could be risk for transfer lesions to develop. I informed patient and family that if transfer lesions were to develop, he could be at risk of ulceration and need for further amputation. I also discussed proceeding with just delayed closure without ray resection. Patient and family were informed that while there appears to be adequate soft-tissue available for closure, he is still at risk of wound dehisence and this could result in need of partial 5th ray resection at a later time. after discussing both options, patient and his have elected for delayed closure without further bone resection. they understand that if the wound was to show any signs of delayed healing, further bone resection could be necessary. I discussed risks of this procedure not limited to wound healing issues, wound dehiscence, need for further bone resection. I informed patient that while the current cultures show no growth, if they finalize as osteomyelitis, he may require further bone resection or need for prolonged course of antibiotics. at this time in absence of infection, it is expected he be discharged on omnicef 300 mg bid x 3 days. All risks and benefits were clearly discussed with family. patient consents to procedure. Patient was transferred from pre-op holding area to the operating room and placed under mac anesthesia. the right foot was injected with local anesthesia. the prior suture was removed. The right lower extremity was prepped and draped in the usual aseptic technique. Inspection of the foot was perfomred. the wound eas evaluated. there was viable soft-tissue without necrosis. there was no purulent drainage. there was no active bleeding. the 5th metatarsal head appeared healthy. I proceeded with irrigation of right foot wound with pulse lavage. After irrigation of the wound, the right foot wound was closed with 3-0 nylon using a combination of simple interrupted and horizontal mattress. the wound edges came together nicely without any tension or difficulty. Counts were correct at time of closure. the right foot was then dressed with betadine soaked adaptic, 4x4 guaze, harry and rupert. patient was awakened and found to be in stable condition. patient was transferred to pacu in stable condition.
[2020-01-26] MEDS: Pravastatin 40 MG Tablet PO (21:52)
[2020-01-26] MEDS: Donepezil HCl 10 MG Tablet PO (21:52)
[2020-01-27 04:26] VITALS: BP 173/89; PULSE 71; RESP 20; TEMP 36.8; O2SAT 95
[2020-01-27] MEDS: Levothyroxine 150 MCG Tablet PO (07:47)
--- NOTE | 2020-01-27 08:32 | PCM.PN.SRG ---
Patient Problems: Active and Suspected Problems (Last Reviewed 08/31/19 @ 08:49 by Ada Shafer) Peripheral arterial occlusive disease (Acute) Osteomyelitis (Acute) Subjective: patient seen this am. patient has no complaints. Objective: patient is alert and orientated x3 patient has no acute distress right foot with surgical wound now approximated with suture. there is no tension along incision. skin color appears normal without necrosis or duskyness. there is no redness on foot. there is no calf pain. there are no signs of ulceration noted to b/l feet. minimal swelling is present to right foot. no calf pain present. - Physical Exam Vitals/I&O's: Vital Signs Temp Pulse Resp BP Pulse Ox 98.2 F 71 20 H 173/89 H 95 01/27/20 04:26 01/27/20 04:26 01/27/20 04:26 01/27/20 04:26 01/27/20 04:26 Oxygen Delivery Method Room Air Weight: 78.38 kg Body Mass Index (BMI) 23.4 Intake and Output for Last 24 Hours 01/25/20 01/26/20 01/27/20 23:59 23:59 23:59 Intake Total 1723.25 / 1723.25 180.2004. 350 / 350 Output Total 525 / 525 200 / 200 Balance 1198.25 / 1198.25 180.2004.00 150 / 150 Microbiology Past 72 Hours 01/23/20 18:32 Bone - Other Gram Stain - Final 01/23/20 18:32 Bone - Other Wound Culture - Final No growth aerobically. 01/23/20 18:32 Bone - Other Anaerobic Culture - Preliminary No growth in 48 hours. 01/23/20 18:30 Bone - Other Gram Stain - Final 01/23/20 18:30 Bone - Other Wound Culture - Final Serratia marcescens Current [facility] Admin: 01/26/20 08:58 Dose: 300 mg Documented by: Clopidogrel Bisulfate (Plavix) 75 mg PO DAILY [facility] Last Admin: 01/26/20 10:20 Dose: Not Given Documented by: Donepezil HCl (Aricept) 10 mg PO QHS [facility] Last Admin: 01/26/20 21:52 Dose: 10 mg Documented by: Famotidine (Pepcid) 20 mg PO DAILY [facility] Last Admin: 01/26/20 08:58 Dose: 20 mg Documented by: Finasteride (Proscar) 5 mg PO DAILY [facility] Last Admin: 01/26/20 08:58 Dose: 5 mg Documented by: Gabapentin (Neurontin) [facility] Last Admin: 01/26/20 08:59 Dose: 300 mg Documented by: Sodium Chloride () 250 mls @ 15 mls/hr IV .[id number] PRN PRN Reason: Saline Flush Last Infusion: 01/26/20 18:50 Dose: 15 mls/hr Documented by: Sodium Chloride () 250 mls @ 15 mls/hr IV .[id number] PRN PRN Reason: Additional IVPB Infusion Last Infusion: 01/25/20 19:00 Dose: Infused Documented by: Piperacillin Sod/Tazobactam (Sod 3.375 gm/ Sodium Chloride) 50 mls @ 12.5 mls/hr IV Q8 [facility] Last Admin: 01/27/20 08:20 Dose: 12.5 mls/hr Documented by: Levothyroxine Sodium (Synthroid) 150 mcg PO DAILY@0600 [facility] Last Admin: 01/27/20 07:47 Dose: 150 mcg Documented by: Multivitamins (Multivitamin) [facility] Last Admin: 01/26/20 08:58 Dose: 1 tablet Documented by: Multivitamins/Minerals (Healthy Eyes (Bkc)) [facility] Last Admin: 01/26/20 08:59 Dose: 1 capsule Documented by: Nitroglycerin (Nitrostat) 0.4 mg SUBLINGUAL Q5M PRN PRN Reason: CHEST Oxycodone HCl (Oxyir) 5 mg PO Q4H PRN PRN PRN Reason: Pain Score 1-10/10 Polyethylene Glycol (Miralax) 17 gm PO DAILY PRN PRN Reason: Constipation Pravastatin Sodium (Pravachol) 40 mg PO QHS [facility] Last Admin: 01/26/20 21:52 Dose: 40 mg Documented by: Sodium Chloride () 10 - 40 ml IV UD PRN PRN Reason: SALINE FLUSH Last Admin: 01/26/20 09:34 Dose: 10 ml Documented by: Tamsulosin HCl (Flomax) 0.4 mg PO DAILY@0830 [facility] Last Admin: 01/26/20 08:58 Dose: 0.4 mg Documented by: Medical Necessity - Tobacco Use Smoking Status: Never smoker Assessment/Plan All Active Problems (Last Reviewed 08/31/19 @ 08:49 by Ada Shafer) Peripheral arterial occlusive disease (Acute) Osteomyelitis (Acute) Esophageal reflux (Acute) Internal hemorrhoids (Resolved) Patient was examined and informed of current findings. he is s/p right 5th toe amputation with delayed closure performed yesterday. His foot appears stable. at this time, the incision appears healthy. will monitor this very closely. patient understands that he needs to stay off his foot and only permitted to apply weight to his heel for transfer. any weight to his foot can result in dehiscence of surgical incision. I will have patient perform dressing change tomorrow with adaptic, betadine, guaze, harry and rupert bandage. He will come to my office on Wednesday or wednesday. He will be discharged on percocet for pain prn and omnicef po bid x 3 days per ID recommendations. Ok for discharge today if medically stable. will use post-op shoe, walker and partial weightbearing to right heel
--- NOTE | 2020-01-27 08:39 | PCM.DC.POD ---
Discharge Activity: May Shower - keep dressing clean and dry, Use Walker Weight Bearing Status: Full weight bearing - right heel with post-op shoe and walker Keep extremity elevated above heart level: Operative Extremity, Right Leg Call your doctor if your incision/area has: Continuous Slow Oozing, Sudden Increased Bleeding, Increased Pain/ Swelling, Foul Smelling Discharge Call your doctor if you observe: Fever of 101 or Higher, Coldness, Increased Pain Allergies/Adverse Reactions: Allergies hyoscyamine [Hyoscyamine] Allergy (Verified 01/12/20 10:52) Other metronidazole Allergy (Verified 01/12/20 10:52) Unknown sesame oil Allergy (Verified 01/12/20 10:52) Other Sulfa (Sulfonamide Antibiotics) Allergy (Verified 01/12/20 10:52) Other sulfamethoxazole [From Bactrim] Allergy (Verified 01/12/20 10:52) Other tree nut [Tree Nut] Allergy (Verified 01/12/20 10:52) Other trimethoprim [From Bactrim] Allergy (Verified 01/12/20 10:52) Other CATS Allergy (Uncoded 07/12/19 14:08) Rash HAYFEVER Allergy (Uncoded 07/12/19 14:08) Other Medications to take at Discharge Allopurinol [Zyloprim] 300 mg PO DAILY 04/30/14 Aspirin [Aspirin, Baby] 81 mg PO DAILY@0800 04/30/14 Clopidogrel Bisulfate [Plavix] 75 mg PO DAILY 04/30/14 Gabapentin [Neurontin] 300 mg PO DAILY 04/30/14 Levothyroxine Sodium [Levoxyl] 150 mcg PO DAILY 04/30/14 Loratadine [Claritin] 10 mg PO DAILY 04/30/14 Multivitamins,Therapeutic [Multivitamin] 1 tab PO DAILY 04/30/14 [place]-3 Fatty Acids/Fish Oil [Fish Oil 1,000 mg Capsule] 1 ea PO DAILY 04/30/14 Pravastatin [Pravachol] 40 mg PO QHS 04/30/14 Donepezil HCl [Aricept] 10 mg PO QHS 02/17/18 Nitroglycerin (INPATIENT USE) [Nitrostat] 0.4 mg SUBLINGUAL Q5M PRN 02/17/18 Polyethylene Glycol 3350 [Miralax] 17 gm PO DAILY PRN 02/17/18 Vits A,C,E/Lutein/Minerals [Ocuvite with Lutein Tablet] 1 ea PO DAILY 02/17/18 lisinopril 20 mg tablet 10 mg PO DAILY tab 03/15/18 famotidine 20 mg tablet 20 mg PO BID tab 09/25/19 Finasteride [Proscar] 5 mg PO DAILY 01/24/20 Tamsulosin HCl [Flomax] 0.4 mg PO DAILY 01/24/20 Cefdinir [Omnicef [equiv]] 300 mg PO Q12H #6 cap 01/27/20 Oxycodone HCl/Acetaminophen [Oxycodone-Acetaminophen 5-325] 1 ea PO Q6H PRN PRN 7 Days #30 tab 01/27/20 The following prescriptions were given: Cefdinir [Omnicef [equiv]] 300 mg PO Q12H #6 cap Prescription Printed Oxycodone HCl/Acetaminophen [Oxycodone-Acetaminophen 5-325] 1 ea PO Q6H PRN PRN 7 Days #30 tab PRN Reason: Pain Score 4-10/10 Prescription Printed Primary Care Physician: Jason Snider MD [Primary Care Provider] - Test Results: Test results from this visit will be discussed in further detail at your follow-up appointment, if applicable. Please Follow Up With: Rush Guevara MD - [phone] When: Call to make an appointment to be seen in about 10-14 days. Please Follow Up With: Travis Aceves DPM When: 1-2 days
[2020-01-27] MEDS: Multivitamins,Therapeutic Tablet 1 TABLET PO (08:42)
[2020-01-27] MEDS: Tamsulosin HCl 0.4 MG Capsule PO (08:42)
[2020-01-27] MEDS: Clopidogrel Bisulfate 75 MG Tablet PO (08:42)
[2020-01-27] MEDS: Famotidine 20 MG Tablet PO (08:42)
[2020-01-27] MEDS: Multivitamin (Healthy Eyes) Capsule 1 CAP PO (08:42)
[2020-01-27] MEDS: Finasteride 5 MG Tablet PO (08:43)
[2020-01-27] MEDS: Allopurinol 300 MG Tablet PO (08:43)
[2020-01-27] MEDS: Gabapentin 300 MG Capsule PO (08:43)
[2020-01-27 08:50] VITALS: BP 160/86; PULSE 61; RESP 16; TEMP 36.6; O2SAT 98
--- NOTE | 2020-01-27 09:51 | PCM.DC ---
- Discharge Diagnoses Current Active Problems: Current Active and Chronic Problems (Last Reviewed 08/31/19 @ 08:49 by Ada Shafer) Peripheral arterial occlusive disease (Acute) Osteomyelitis (Acute) Reason(s) for Visit for Discharge Instructions: Right foot osteomyelitis You will use the following diet at home:: Cardiac Your food should be the consistency of: Regular Your liquids should be the consistency of: Regular/Thin Discharge Activity: May Shower - keep dressing clean and dry, Use Walker Weight Bearing Status: Full weight bearing - right heel with post-op shoe and walker Keep extremity elevated above heart level: Operative Extremity, Right Leg Call your doctor if your incision/area has: Continuous Slow Oozing, Sudden Increased Bleeding, Increased Pain/ Swelling, Foul Smelling Discharge Call your doctor if you observe: Fever of 101 or Higher, Coldness, Increased Pain Instructions: Osteomyelitis Additional Instructions: Complete your antibiotics. Follow wound instructions as well as ambulation instructions. Follow-up with your primary care doctor for repeat blood work within 1 week. Allergies/Adverse Reactions: Allergies hyoscyamine [Hyoscyamine] Allergy (Verified 01/12/20 10:52) Other metronidazole Allergy (Verified 01/12/20 10:52) Unknown sesame oil Allergy (Verified 01/12/20 10:52) Other Sulfa (Sulfonamide Antibiotics) Allergy (Verified 01/12/20 10:52) Other sulfamethoxazole [From Bactrim] Allergy (Verified 01/12/20 10:52) Other tree nut [Tree Nut] Allergy (Verified 01/12/20 10:52) Other trimethoprim [From Bactrim] Allergy (Verified 01/12/20 10:52) Other CATS Allergy (Uncoded 07/12/19 14:08) Rash HAYFEVER Allergy (Uncoded 07/12/19 14:08) Other Medications to take at Discharge Allopurinol [Zyloprim] 300 mg PO DAILY 04/30/14 Aspirin [Aspirin, Baby] 81 mg PO DAILY@0800 04/30/14 Clopidogrel Bisulfate [Plavix] 75 mg PO DAILY 04/30/14 Gabapentin [Neurontin] 300 mg PO DAILY 04/30/14 Levothyroxine Sodium [Levoxyl] 150 mcg PO DAILY 04/30/14 Loratadine [Claritin] 10 mg PO DAILY 04/30/14 Multivitamins,Therapeutic [Multivitamin] 1 tab PO DAILY 04/30/14 [place]-3 Fatty Acids/Fish Oil [Fish Oil 1,000 mg Capsule] 1 ea PO DAILY 04/30/14 Pravastatin [Pravachol] 40 mg PO QHS 04/30/14 Donepezil HCl [Aricept] 10 mg PO QHS 02/17/18 Nitroglycerin (INPATIENT USE) [Nitrostat] 0.4 mg SUBLINGUAL Q5M PRN 02/17/18 Polyethylene Glycol 3350 [Miralax] 17 gm PO DAILY PRN 02/17/18 Vits A,C,E/Lutein/Minerals [Ocuvite with Lutein Tablet] 1 ea PO DAILY 02/17/18 lisinopril 20 mg tablet 10 mg PO DAILY tab 03/15/18 famotidine 20 mg tablet 20 mg PO BID tab 09/25/19 Finasteride [Proscar] 5 mg PO DAILY 01/24/20 Tamsulosin HCl [Flomax] 0.4 mg PO DAILY 01/24/20 Cefdinir [Omnicef [equiv]] 300 mg PO Q12H #6 cap 01/27/20 Oxycodone HCl/Acetaminophen [Oxycodone-Acetaminophen 5-325] 1 ea PO Q6H PRN PRN 7 Days #30 tab 01/27/20 The following prescriptions were given: Cefdinir [Omnicef [equiv]] 300 mg PO Q12H #6 cap Prescription Printed Oxycodone HCl/Acetaminophen [Oxycodone-Acetaminophen 5-325] 1 ea PO Q6H PRN PRN 7 Days #30 tab PRN Reason: Pain Score 4-10/10 Prescription Printed Primary Care Physician: Jason Snider MD [Primary Care Provider] - Please follow up with your Primary Care Physician in: within 1-2 weeks Test Results: Test results from this visit will be discussed in further detail at your follow-up appointment, if applicable. Please Follow Up With: Rush Guevara MD - [phone] When: Call to make an appointment to be seen in about 10-14 days. Please Follow Up With: Travis Aceves DPM When: 1-2 days Proposed Discharge Date: 01/27/20
--- NOTE | 2020-01-27 09:54 | PN_ITS ---
Patient Problems: Active and Suspected Problems (Last Reviewed 08/31/19 @ 08:49 by Ada Shafer) Peripheral arterial occlusive disease (Acute) Osteomyelitis (Acute) Reason for Visit: Follow-upon right 5th toe gangrene/abscess, s/p right 5th toe amputation Subjective: Patient was seen and examined. He denied any new complains. Objective: Physical exam: General: Alert, Oriented x3, Cooperative, No apparent distress HEENT: Atraumatic, PERRLA, EOMI, Normocephalic Oral: Moist Mucosa Neck: Supple Lungs: Clear to auscultation, Normal air movement Cardiovascular: Regular rate, Regular Rhythm, Normal S1, Normal S2, Murmur - 3/6 holosystolic murmur Abdomen: Bowel Sounds Present, Soft, Non Tender, Non-Distended, No Hepato-spl enomegaly Extremities:Dressing over right foot, RAVEN wrapped Musculoskeletal: No Tenderness to Palpation of Joints or Extremities Lymphatic: No Cervical, Supraclavicular, or Inguinal Adenopathy Neurological: Cranial nerves II-XII grossly intact, Neuro grossly intact Psych/Mental Status: Normal Affect, Appropriate Vitals/I&O's: Vital Signs Temp Pulse Resp BP Pulse Ox 97.8 F 61 16 160/86 H 98 01/27/20 08:50 01/27/20 08:50 01/27/20 08:50 01/27/20 08:50 01/27/20 08:50 Oxygen Delivery Method Room Air Weight: 78.38 kg Body Mass Index (BMI) 23.4 Intake and Output for Last 24 Hours 01/25/20 01/26/20 01/27/20 23:59 23:59 23:59 Intake Total 1723.25 / 1723.25 1804. 470 / 470 Output Total 525 / 525 200 / 200 Balance 1198.25 / 1198.25 1804. 270 / 270 Microbiology Past 72 Hours 01/23/20 18:32 Bone - Other Gram Stain - Final 01/23/20 18:32 Bone - Other Wound Culture - Final No growth aerobically. 01/23/20 18:32 Bone - Other Anaerobic Culture - Preliminary No growth in 48 hours. 01/23/20 18:30 Bone - Other Gram Stain - Final 01/23/20 18:30 Bone - Other Wound Culture - Final Serratia marcescens Current Medications Allopurinol (Zyloprim) 300 mg [facility] Last Admin: 01/27/20 08:43 Dose: 300 mg Documented by: Clopidogrel Bisulfate (Plavix) 75 mg PO DAILY [facility] Last Admin: 01/27/20 08:42 Dose: 75 mg Documented by: Donepezil HCl (Aricept) 10 mg PO QHS [facility] Last Admin: 01/26/20 21:52 Dose: 10 mg Documented by: Famotidine (Pepcid) 20 mg PO DAILY [facility] Last Admin: 01/27/20 08:42 Dose: 20 mg Documented by: Finasteride (Proscar) 5 mg PO DAILY [facility] Last Admin: 01/27/20 08:43 Dose: 5 mg Documented by: Gabapentin (Neurontin) 300 mg [facility] Last Admin: 01/27/20 08:43 Dose: 300 mg Documented by: Sodium Chloride () 250 mls @ 15 mls/hr IV .[id number] PRN PRN Reason: Saline Flush Last Infusion: 01/27/20 07:00 Dose: Infused Documented by: Sodium Chloride () 250 mls @ 15 mls/hr IV .[id number] PRN PRN Reason: Additional IVPB Infusion Last Infusion: 01/25/20 19:00 Dose: Infused Documented by: Piperacillin Sod/Tazobactam (Sod 3.375 gm/ Sodium Chloride) 50 mls @ 12.5 mls/hr IV Q8 [facility] Last Admin: 01/27/20 08:20 Dose: 12.5 mls/hr Documented by: Levothyroxine Sodium (Synthroid) 150 mcg PO DAILY@0600 [facility] Last Admin: 01/27/20 07:47 Dose: 150 mcg Documented by: Multivitamins (Multivitamin) 1 tablet [facility] Last Admin: 01/27/20 08:42 Dose: 1 tablet Documented by: Multivitamins/Minerals (Healthy Eyes (Bkc)) 1 capsule PO [facility]ILY[facility] Last Admin: 01/27/20 08:42 Dose: 1 capsule Documented by: Nitroglycerin (Nitrostat) 0.4 mg SUBLINGUAL Q5M PRN PRN Reason: CHEST Oxycodone HCl (Oxyir) 5 mg PO Q4H PRN PRN PRN Reason: Pain Score 1-10/10 Polyethylene Glycol (Miralax) 17 gm PO DAILY PRN PRN Reason: Constipation Pravastatin Sodium (Pravachol) 40 mg PO QHS [facility] Last Admin: 01/26/20 21:52 Dose: 40 mg Documented by: Sodium Chloride () 10 - 40 ml IV UD PRN PRN Reason: SALINE FLUSH Last Admin: 01/26/20 09:34 Dose: 10 ml Documented by: Tamsulosin HCl (Flomax) 0.4 mg PO DAILY@0830 [facility] Last Admin: 01/27/20 08:42 Dose: 0.4 mg Documented by: STROKE Vital Signs/Narrative: Vital Signs Temp Pulse Resp BP Pulse Ox 01/27/20 08:50 97.8 F 61 16 160/86 H 98 Medical Necessity - Tobacco Use Smoking Status: Never smoker Assessment/Plan All Active Problems (Last Reviewed 08/31/19 @ 08:49 by Ada Shafer) Peripheral arterial occlusive disease (Acute) Osteomyelitis (Acute) Esophageal reflux (Acute) Internal hemorrhoids (Resolved) 1. POD #4, s/p incision and drainage right 5th toe, 5th toe amputation, bone biopsy of right 5th metatarsal for right fifth toe gangrene/osteomyelitis(01/23/20), Hgb A1c 5.8. Wound cultures in the previous toe growing gram variable kal. Culture of 5th metatarsal biopsy negative so far, other intraoperative cultures are pending. Wound closure planned for today 01/26/20. Being discharged on 3 more days of Omnicef. 2. PAD, multisegmental disease, on Plavix, outpatient workup and intervention planned for post-discharge with Dr. Guevara On aspirin and Plavix 3. CAD status post CABG, status post stent(2010), no active cardiac complaints Continue on aspirin, plavix and statin 4. History of bilateral carotid endarterectomy, resumed on aspirin, Plavix and statin 5. Cognitive impairment; patient is a poor historian, continue on Aricept 6. BPH, on Proscar and Flomax 7. Hypertension, controlled, ok to resume Lisinopril 8. Hypothyroidism, continue levothyroxine 9. DVT prophylaxis -per podiatry primary team Inpatient E&M: [id number] Subs Hosp L2
--- NOTE | 2020-01-27 15:54 | DS.PCM_ITS ---
Discharge Date and Diagnosis Date of Admission: 01/23/20 Date of Discharge: 02/03/20 - Primary Discharge Diagnosis osteomyelitis of right 5th toe - Secondary Discharge Diagnosis Chronic Problems (Last Reviewed 08/31/19 @ 08:49 by Ada Shafer) Presence of permanent cardiac pacemaker (Chronic ~09/22/19) [place] [employer] Accolade MRI L311 pulse generator programmed as DDDR, [employer] MRI 7741 right atrial lead and [place] [employer] 7742 right ventricular lead 09/22/19 Sinus bradycardia (Chronic) Atherosclerotic heart disease of [place] coronary artery without angina pectoris (Chronic) Pure hypercholesterolemia (Chronic) Carotid artery disease (Chronic) Presence of stent in coronary artery (Chronic ~01/28/11) PTCA/Stent to LCX 01/28/11 History of coronary artery bypass surgery (Chronic ~06/11/97) CABG x2: VIZCARRA to LAD and Y graft off of VIZCARRA to diagonal 06/11/97 Traction bronchiectasis (Chronic) Pulmonary hypertension (Chronic) PASP of 43 (January 2018) Interstitial lung disease (Chronic) Wheezing (Chronic) Fatigue (Chronic) Cough (Chronic) Hypothyroidism (Chronic) Benign essential HTN (Chronic) Hospital Course and Treatment Imaging Results: xray of right foot performed following amputation of right 5th toe. stable post-op findings noted. Dr Valente: vascular consultation Dr. Brennan: Infectious Disease Dr. Richardson: medical management Operations: None, - - right 5th toe amputation 01/22/2020 Delayed closure, right foot 01/26/2020 Procedures: None Summary of Care Provided: The patient is a 84 year old M who has osteomyelitis of right 5th toe. He underwent right 5th toe amputation on 01/22/2020 and subsequent delayed closure on 01/26/2020. Dr. Guevara was consulted for vascular consultation. dr. Brennan was consulted for infectious disease management. PVR was performed prior to amptuation and it was significant for small vessel disease. Wound cultures of 5th toe proximal phalanx was + for bacterial growth. 5th metatarsal was negative for any bacterial growth. pathology was pending at discharge. patient was discharged on 01/27/2020 on omnicef 300 mg po bid x 3 days and percocet for pain. Subjective: patient with no complaints. Objective: alert and orientated x 3. right foot s/p amputation of right 5th toe with viable skin. right foot has normal color and normal texture. no tension noted along skin incision no signs of infection noted. - Physical Exam Vitals/I&O's: Vital Signs Temp Pulse Resp BP Pulse Ox 97.8 F 61 16 160/86 H 98 01/27/20 08:50 01/27/20 08:50 01/27/20 08:50 01/27/20 08:50 01/27/20 08:50 Oxygen Delivery Method Room Air Weight: 78.38 kg Body Mass Index (BMI) 23.4 Intake and Output for Last 24 Hours 01/25/20 01/26/20 01/27/20 23:59 23:59 23:59 Intake Total 1723.25 / 1723.25 180. 507.71 / 507.71 Output Total 525 / 525 200 / 200 Balance 1198.25 / 1198.25 180. 307.71 / 307.71 General: Alert, Oriented x3 HEENT: Atraumatic, PERRLA Neck: Supple, No JVD, Negative Carotid Bruits Lungs: No wheeze, No rales Cardiovascular: Regular rate Extremities: - - right 5th toe amputation Skin: - - incision to right foot s/p amputation. no signs of infection Neurological: Cranial nerves II-XII grossly intact Psych/Mental Status: Normal Affect Microbiology Past 72 Hours 01/23/20 18:32 Bone - Other Gram Stain - Final 01/23/20 18:32 Bone - Other Wound Culture - Final No growth aerobically. 01/23/20 18:32 Bone - Other Anaerobic Culture - Preliminary No growth in 48 hours. 01/23/20 18:30 Bone - Other Gram Stain - Final 01/23/20 18:30 Bone - Other Wound Culture - Final Serratia marcescens Discharge Activity: May Shower - keep dressing clean and dry, Use Walker Weight Bearing Status: Full weight bearing - right heel with post-op shoe and walker Keep extremity elevated above heart level: Operative Extremity, Right Leg Call your doctor if your incision/area has: Continuous Slow Oozing, Sudden Increased Bleeding, Increased Pain/ Swelling, Foul Smelling Discharge Call your doctor if you observe: Fever of 101 or Higher, Coldness, Increased Pain Home Medications: Medications to take at Discharge Allopurinol [Zyloprim] 300 mg PO DAILY 04/30/14 Aspirin [Aspirin, Baby] 81 mg PO DAILY@0800 04/30/14 Clopidogrel Bisulfate [Plavix] 75 mg PO DAILY 04/30/14 Gabapentin [Neurontin] 300 mg PO DAILY 04/30/14 Levothyroxine Sodium [Levoxyl] 150 mcg PO DAILY 04/30/14 Loratadine [Claritin] 10 mg PO DAILY 04/30/14 Multivitamins,Therapeutic [Multivitamin] 1 tab PO DAILY 04/30/14 [place]-3 Fatty Acids/Fish Oil [Fish Oil 1,000 mg Capsule] 1 ea PO DAILY 04/30/14 Pravastatin [Pravachol] 40 mg PO QHS 04/30/14 Donepezil HCl [Aricept] 10 mg PO QHS 02/17/18 Nitroglycerin (INPATIENT USE) [Nitrostat] 0.4 mg SUBLINGUAL Q5M PRN 02/17/18 Polyethylene Glycol 3350 [Miralax] 17 gm PO DAILY PRN 02/17/18 Vits A,C,E/Lutein/Minerals [Ocuvite with Lutein Tablet] 1 ea PO DAILY 02/17/18 lisinopril 20 mg tablet 10 mg PO DAILY tab 03/15/18 famotidine 20 mg tablet 20 mg PO BID tab 09/25/19 Finasteride [Proscar] 5 mg PO DAILY 01/24/20 Tamsulosin HCl [Flomax] 0.4 mg PO DAILY 01/24/20 Cefdinir [Omnicef [equiv]] 300 mg PO Q12H #6 cap 01/27/20 Following Prescrptions Were Given to Patient: Cefdinir [Omnicef [equiv]] 300 mg PO Q12H #6 cap Prescription Printed Primary Care Physician: Jason Snider MD [Primary Care Provider] - Please follow up with your Primary Care Physician in: within 1-2 weeks Please Follow Up With: Rush Guevara MD - [phone] When: Call to make an appointment to be seen in about 10-14 days. Please Follow Up With: Travis Aceves DPM When: 1-2 days Patient Instructions: Osteomyelitis Medical Necessity - Tobacco Use Smoking Status: Never smoker Meaningful Use Info Meaningful Use Diagnoses (Choose all that apply): None applicable - AMI/Post PCI/Angioplasty Reason Antiplatelet Therapy not ordered:: not indicated Naren/ARB at discharge?: No Beta Mikala at discharge?: No - CHF NAREN/ARB ordered at discharge?: No - CVA Therapy Assessed for PT,OT and/or ST?: No - Ischemic Stroke Antithrombotic order at d/c?: No Reason antithrombotic not ordered: Treatment not Indicated Dx of Atrial fib/flutter?: No Anticoagulant at discharge?: No Reason anticoagulant not ordered: Treatment not Indicated Reason Statin not ordered: Treatment not Indicated Primary Dx Acute Ischemic CVA?: No IV tPA ordered during stay?: No Reason IV t-PA not ordered: Treatment not Indicated - VTE Anticoag overlap given w/in hospital stay or rx'd at dc?: Yes Pt receive overlap for 5 days?: No Reason overlap not ordered, prescribed, or given for 5 days: Treatment Not Indicated [id number]: Other Procedure See Report - amputation of 5th toe
--- NOTE | 2020-03-03 22:23 | HP.PCM_ITS ---
History of Present Illness Date of Admission: 01/23/20 Chief Complaint: right foot infection Patient is a pleasant 84 year old male who has complaint of pain, swelling and nonviable appearance of right 5th toe. ?Apparently this has been going on for several weeks. ? ? He has history of callus to right 5th toe that he was treating with gel pad dispensed from this office in October. ?This was helping with callus but the pad wore out so patient elected to purchase one over the counter and since then, he has noticed increased swelling of the 5th toe and has wound to the plantar lateral aspect. ?He was scheduled for routine nail care later this month but does not feel that his toe can wait for next appointment. ? ? He states there is drainage of 5th toe and that pain is 5/10. ?He denies n/v/f/c. Patient presented to my clinic this morning at which time I evaluated the wound and recommend he present to hospital for admission. Past Medical History Past Medical History (Chronic Problems): Chronic Problems (Last Reviewed 08/31/19 @ 08:49 by Ada Shafer) Presence of permanent cardiac pacemaker (Chronic ~09/22/19) General Specific Accolade MRI L311 pulse generator programmed as DDDR, [employer] MRI 7741 right atrial lead and [place] [employer] 7742 right ventricular lead 09/22/19 Sinus bradycardia (Chronic) Atherosclerotic heart disease of [place] coronary artery without angina pectoris (Chronic) Pure hypercholesterolemia (Chronic) Carotid artery disease (Chronic) Presence of stent in coronary artery (Chronic ~01/28/11) PTCA/Stent to LCX 01/28/11 History of coronary artery bypass surgery (Chronic ~06/11/97) CABG x2: VIZCARRA to LAD and Y graft off of VIZCARRA to diagonal 06/11/97 Traction bronchiectasis (Chronic) Pulmonary hypertension (Chronic) PASP of 43 (January 2018) Interstitial lung disease (Chronic) Wheezing (Chronic) Fatigue (Chronic) Cough (Chronic) Hypothyroidism (Chronic) Benign essential HTN (Chronic) Medical History: Medical History (Last Reviewed 08/31/19 @ 08:49 by Ada Shafer) Atherosclerotic heart disease of [place] coronary artery without angina pectoris (Chronic) I25.10 Pure hypercholesterolemia (Chronic) E78.00 Carotid artery disease (Chronic) I77.9 Presence of stent in coronary artery (Chronic) Onset Date: ~01/28/11 Z95.5 PTCA/Stent to LCX 01/28/11 Esophageal reflux (Acute) K21.9 Interstitial lung disease (Chronic) J84.9 Wheezing (Chronic) R06.2 Fatigue (Chronic) R53.83 Cough (Chronic) R05 Hypothyroidism (Chronic) E03.9 Benign essential HTN (Chronic) I10 Anal stenosis K62.4 Hemorrhage of gastrointestinal tract, unspecified K92.2 Hemorrhage of rectum and anus K62.5 History of flexible sigmoidoscopy Z98.890 06/19/2008 Mild cognitive disorder F09 OM (osteomyelitis) M86.9 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 Urinary retention R33.9 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 BPH (benign prostatic hyperplasia) Chronic gout [id number] CHAVEZ (dyspnea on exertion) R06.09 Prediabetes R73.03 Psoriasis L40.9 Rheumatoid arthritis M06.9 Internal hemorrhoids (Resolved) K64.8 Occlusion and stenosis of unspecified carotid artery I65.29 Allergies hyoscyamine [Hyoscyamine] Allergy (Verified 01/12/20 10:52) Other metronidazole Allergy (Verified 01/12/20 10:52) Unknown sesame oil Allergy (Verified 01/12/20 10:52) Other Sulfa (Sulfonamide Antibiotics) Allergy (Verified 01/12/20 10:52) Other sulfamethoxazole [From Bactrim] Allergy (Verified 01/12/20 10:52) Other tree nut [Tree Nut] Allergy (Verified 01/12/20 10:52) Other trimethoprim [From Bactrim] Allergy (Verified 01/12/20 10:52) Other CATS Allergy (Uncoded 07/12/19 14:08) Rash HAYFEVER Allergy (Uncoded 07/12/19 14:08) Other Home Medications: Ambulatory Orders Medication Instructions Recorded Allopurinol [Zyloprim] 300 mg PO DAILY 04/30/14 Aspirin [Aspirin, Baby] 81 mg PO DAILY@0800 04/30/14 Clopidogrel Bisulfate [Plavix] 75 mg PO DAILY 04/30/14 Gabapentin [Neurontin] 300 mg PO DAILY 04/30/14 Levothyroxine Sodium [Levoxyl] 150 mcg PO DAILY 04/30/14 Loratadine [Claritin] 10 mg PO DAILY 04/30/14 Multivitamins,Therapeutic 1 tab PO DAILY 04/30/14 [Multivitamin] [place]-3 Fatty Acids/Fish Oil [Fish 1 ea PO DAILY 04/30/14 Oil 1,000 mg Capsule] Pravastatin [Pravachol] 40 mg PO QHS 04/30/14 Donepezil HCl [Aricept] 10 mg PO QHS 02/17/18 Nitroglycerin (INPATIENT USE) 0.4 mg SUBLINGUAL Q5M PRN 02/17/18 [Nitrostat] Polyethylene Glycol 3350 [Miralax] 17 gm PO DAILY PRN 02/17/18 Vits A,C,E/Lutein/Minerals 1 ea PO DAILY 02/17/18 [Ocuvite with Lutein Tablet] lisinopril 20 mg tablet 10 mg PO DAILY tab 03/15/18 famotidine 20 mg tablet 20 mg PO BID tab 09/25/19 Finasteride [Proscar] 5 mg PO DAILY 01/24/20 Tamsulosin HCl [Flomax] 0.4 mg PO DAILY 01/24/20 Cefdinir [Omnicef [equiv]] 300 mg PO Q12H #6 cap 01/27/20 Surgical History: Surgical History (Last Reviewed 08/31/19 @ 08:49 by Ada Shafer) History of coronary artery bypass surgery (Chronic) Onset Date: ~06/11/97 Z95.1 CABG x2: VIZCARRA to LAD and Y graft off of VIZCARRA to diagonal 06/11/97 Presence of coronary angioplasty implant and graft Onset Date: ~01/28/11 Z95.5 PTCA/Stent to LCX 01/28/11 History of amputation of lesser toe Z89.429 right foot, 4th digit-2010 History of bunionectomy of right great toe Z98.890 2010 History of cardiac catheterization Z98.890 2011 History of cataract surgery Z98.49 2016 History of hemorrhoidectomy Z98.890 1963 History of knee surgery Z98.890 Right knee replacement- 2012 History of left-sided carotid endarterectomy Onset Date: ~1997 Z98.890 History of prostatectomy Z90.79 2006 History of right-sided carotid endarterectomy Onset Date: ~05/04/14 Z98.890 History of tonsillectomy Z90.89 1942 History of transurethral resection of prostate Z98.890, Z90.79 History of vasectomy Z98.52 1971 Hx of colonoscopy Z98.890 08/10/2014 Surgical History: angioplasty, coronary bypass surgery, tonsillectomy, TURP, - - Total right knee. Psychiatric History: No pertinent psych hx Smoking Status: Never smoker - *Family History Paternal Family History: Family History (Last Reviewed 08/31/19 @ 08:49 by Ada Shafer) Father Heart disease History Items: Diabetes, Heart Disease Maternal Family History: Family History (Last Reviewed 08/31/19 @ 08:49 by Ada Shafer) Father Heart disease History Items: No pertinent history VTE Information - Inpt Only VTE Present on Admission: Yes VTE Mechan Device Prophylaxis: SCD's VTE Pharm Prophylaxis ordered?: Yes Objective: Patient is alert and orientated x 3. patient does not appear in any distress vascular: DP and PT pulses are very faint to right foot. CFT is delayed to right foot. skin temperature is warm to cool. hair growth is decreased to right foot. Derm: Right 5th toe is swollen and macerated . There is ulceration to plantar lateral right 5th toe at pipj that probes to bone. ?The right 5th toe does not appear healthy and or salvageable. ?There is foul odor of right 5th toe m/s: Patient has pain to palpation of?right 5th toe Foot type is?neutral?structurally AJ ROM is?full?with knee extended and flexed 1st MPJ is?full?when loaded and no?pain or crepitus are noted with ROM. MTJ, STJ are full and free of pain and crepitus. +5/5 muscle strength dorsiflexion, plantarflexion, inversion, eversion b/l Right 5th toe is swollen and nonsalveagble ? Radiographs: 3 views?right?foot ordered January 23, 2020: I have personally reviewed and interpreted these XR myself:??There is swelling of right 5th toe . ?There is collection of free air of right 5th toe best seen on oblique - Physical Exam Vitals/I&O's: Vital Signs Temp Pulse Resp BP Pulse Ox 97.8 F 61 16 160/86 H 98 01/27/20 08:50 01/27/20 08:50 01/27/20 08:50 01/27/20 08:50 01/27/20 08:50 Oxygen Delivery Method Room Air Weight: 78.38 kg Body Mass Index (BMI) 23.4 General: Alert, Oriented x3 Assessment/Plan All Active Problems (Last Reviewed 08/31/19 @ 08:49 by Ada Shafer) Peripheral arterial occlusive disease (Acute) Osteomyelitis (Acute) Esophageal reflux (Acute) Internal hemorrhoids (Resolved) Patient will be admiited for infection of right foot. on exam, he has nonsalveable 5th toe of right foot. will plan for admission, urgent amputation of right 5th toe. will plan for staged amputation with closure performed at a later time this week. I did consult dr. Guevara to evaluate patient and determine ability to heal. given presence of infection, will proceed with amputation today. Will start antibiotics and monitor patient daily.
--- NOTE | 2020-03-03 23:11 | DS.PCM_ITS ---
Discharge Date and Diagnosis Date of Admission: 01/23/20 Date of Discharge: 01/27/20 - Primary Discharge Diagnosis osteomyelitis of right 5th toe - Secondary Discharge Diagnosis Chronic Problems (Last Reviewed 08/31/19 @ 08:49 by Ada Shafer) Presence of permanent cardiac pacemaker (Chronic ~09/22/19) [employer] Exceler[employer] Accolade MRI L311 pulse generator programmed as DDDR, Sensentia[employer] MRI 7741 right atrial lead and [place] [employer] 7742 right ventricular lead 09/22/19 Sinus bradycardia (Chronic) Atherosclerotic heart disease of [place] coronary artery without angina pectoris (Chronic) Pure hypercholesterolemia (Chronic) Carotid artery disease (Chronic) Presence of stent in coronary artery (Chronic ~01/28/11) PTCA/Stent to LCX 01/28/11 History of coronary artery bypass surgery (Chronic ~06/11/97) CABG x2: VIZCARRA to LAD and Y graft off of VIZCARRA to diagonal 06/11/97 Traction bronchiectasis (Chronic) Pulmonary hypertension (Chronic) PASP of 43 (January 2018) Interstitial lung disease (Chronic) Wheezing (Chronic) Fatigue (Chronic) Cough (Chronic) Hypothyroidism (Chronic) Benign essential HTN (Chronic) Hospital Course and Treatment Imaging Results: xray of right foot performed following amputation of right 5th toe. stable post-op findings noted. Dr Valente: vascular consultation Dr. Brennan: Infectious Disease Dr. Richardson: medical management Operations: None, - - right 5th toe amputation 01/22/2020 Delayed closure, right foot 01/26/2020 Summary of Care Provided: The patient is a 84 year old M who has osteomyelitis of right 5th toe. He underwent right 5th toe amputation on 01/22/2020 and subsequent delayed closure on 01/26/2020. Dr. Guevara was consulted for vascular consultation. dr. Brennan was consulted for infectious disease management. PVR was performed prior to amptuation and it was significant for small vessel disease. Wound cultures of 5th toe proximal phalanx was + for bacterial growth. 5th metatarsal was negative for any bacterial growth. pathology was pending at discharge. patient was discharged on 01/27/2020 on omnicef 300 mg po bid x 3 days and percocet for pain.] Subjective: patient with no complaints. pain mild to right foot Objective: patient is alert and orientated x 3. patient does not appear in any distress right foot appears healthy free of infection. surgical incision to right foot is approximated. there is no local signs of infection. - Physical Exam Vitals/I&O's: Vital Signs Temp Pulse Resp BP Pulse Ox 97.8 F 61 16 160/86 H 98 01/27/20 08:50 01/27/20 08:50 01/27/20 08:50 01/27/20 08:50 01/27/20 08:50 Oxygen Delivery Method Room Air Weight: 78.38 kg Body Mass Index (BMI) 23.4 Discharge Activity: May Shower - keep dressing clean and dry, Use Walker Weight Bearing Status: Full weight bearing - right heel with post-op shoe and walker Keep extremity elevated above heart level: Operative Extremity, Right Leg Call your doctor if your incision/area has: Continuous Slow Oozing, Sudden Increased Bleeding, Increased Pain/ Swelling, Foul Smelling Discharge Call your doctor if you observe: Fever of 101 or Higher, Coldness, Increased Pain Home Medications: Medications to take at Discharge Allopurinol [Zyloprim] 300 mg PO DAILY 04/30/14 Aspirin [Aspirin, Baby] 81 mg PO DAILY@0800 04/30/14 Clopidogrel Bisulfate [Plavix] 75 mg PO DAILY 04/30/14 Gabapentin [Neurontin] 300 mg PO DAILY 04/30/14 Levothyroxine Sodium [Levoxyl] 150 mcg PO DAILY 04/30/14 Loratadine [Claritin] 10 mg PO DAILY 04/30/14 Multivitamins,Therapeutic [Multivitamin] 1 tab PO DAILY 04/30/14 [place]-3 Fatty Acids/Fish Oil [Fish Oil 1,000 mg Capsule] 1 ea PO DAILY 04/30/14 Pravastatin [Pravachol] 40 mg PO QHS 04/30/14 Donepezil HCl [Aricept] 10 mg PO QHS 02/17/18 Nitroglycerin (INPATIENT USE) [Nitrostat] 0.4 mg SUBLINGUAL Q5M PRN 02/17/18 Polyethylene Glycol 3350 [Miralax] 17 gm PO DAILY PRN 02/17/18 Vits A,C,E/Lutein/Minerals [Ocuvite with Lutein Tablet] 1 ea PO DAILY 02/17/18 lisinopril 20 mg tablet 10 mg PO DAILY tab 03/15/18 famotidine 20 mg tablet 20 mg PO BID tab 09/25/19 Finasteride [Proscar] 5 mg PO DAILY 01/24/20 Tamsulosin HCl [Flomax] 0.4 mg PO DAILY 01/24/20 Cefdinir [Omnicef [equiv]] 300 mg PO Q12H #6 cap 01/27/20 Following Prescrptions Were Given to Patient: Cefdinir [Omnicef [equiv]] 300 mg PO Q12H #6 cap Prescription Printed Primary Care Physician: Jason Snider MD [Primary Care Provider] - Please follow up with your Primary Care Physician in: within 1-2 weeks Please Follow Up With: Rush Guevara MD - [phone] When: Call to make an appointment to be seen in about 10-14 days. Please Follow Up With: Travis Aceves DPM When: 1-2 days Patient Instructions: Osteomyelitis Medical Necessity - Tobacco Use Smoking Status: Never smoker Meaningful Use Info Meaningful Use Diagnoses (Choose all that apply): None applicable
== END 2020-01-27 11:29 | disposition home or self-care (01) | DRG 477 ==
PROVIDERS: Anesthesiology; Internal Medicine; Admitting Provider Podiatrist Foot & Ankle Surgery; PCP Internal Medicine; Visit Provider Podiatrist Foot & Ankle Surgery
PROC: 0Y6X0Z0 Detachment at Right 5th Toe, Complete, Open Approach (ICD-10-PCS; principal; 2020-01-23 16:45)
PROC: 0JQQ0ZZ Repair Right Foot Subcutaneous Tissue and Fascia, Open Approach (ICD-10-PCS; principal; 2020-01-26 15:25)
DX: M86.8X7 Other osteomyelitis, ankle and foot (principal); A48.0 Gas gangrene; J84.9 Interstitial pulmonary disease, unspecified; I25.10 Atherosclerotic heart disease of native coronary artery without angina pectoris; Z95.1 Presence of aortocoronary bypass graft; Z95.0 Presence of cardiac pacemaker; N40.0 Benign prostatic hyperplasia without lower urinary tract symptoms; I10 Essential (primary) hypertension; E03.9 Hypothyroidism, unspecified; R41.89 Other symptoms and signs involving cognitive functions and awareness; R73.03 Prediabetes; I73.9 Peripheral vascular disease, unspecified; Z96.651 Presence of right artificial knee joint; I27.20 Pulmonary hypertension, unspecified; Z79.02 Long term (current) use of antithrombotics/antiplatelets; Z83.3 Family history of diabetes mellitus; Z90.79 Acquired absence of other genital organ(s); Z95.5 Presence of coronary angioplasty implant and graft; M06.9 Rheumatoid arthritis, unspecified; K21.9 Gastro-esophageal reflux disease without esophagitis
CPT/HCPCS: 36415; 73630; 73660; 76000; 80048; 80053; 80202; 83036; 84443; 85025; 87015; 87070; 87075; 87077; 87102; 87116; 87186; 87205; 87206; 88304; 88305; 88311; 93005; 93923; 97116; 97162; 97530; 97802; J7030; J7050; A4216; J2405; J3490

== ENCOUNTER → 2020-04-08 12:01 | Outpatient (CLI) | payer MEDICARE, SELFPAY ==
[2020-02-29 08:17] VITALS: BMI 23.8
[2020-04-08 14:50] LABS: Absolute Lymphocyte Count 0.93 X10^3/uL (0.83-4.51); Absolute Neutrophil Count 4.7 X10^3/uL (2.0-7.7); Basophil# 0.06 X10^3/uL; Basophil% 0.9 % (0-1); Eosinophil# 0.33 X10^3/uL; Eosinophils% 4.9 % (0-5); Hematocrit 41.8 % (40-54); Hemoglobin 13.2 g/dL (13.0-16.5); Lymphocyte # 0.93 X10^3/ul (4.0); Lymphocyte % 13.9 % (19-41); Mean Corp Hgb Conc 31.6 g/dL (32-36); Mean Corpuscular Hgb 30.6 pg (27.0-32.0); Mean Corpuscular Volume 96.8 fL (80-94); Mean Platelet Vol. 9.8 fl (6.2-12.0); Monocyte# 0.71 X10^3/uL; Monocyte% 10.6 % (0-10); NRBC Flagged by Analyzer 0 % (0-5); Neutrophil # 4.65 X10^3/uL (2.7-7.7); Neutrophil % 69.6 % (47-70); Platelet Count 198 K/mm3 (150-450); RBC Distribution Width CV 13.2 % (11.6-14.6); RBC Distribution Width SD 47.2 fl (35.1-43.9); Red Blood Count 4.32 M/mm3 (4.6-6.2); White Blood Count 6.7 K/mm3 (4.4-11.0)
[2020-04-08 15:15] LABS: ALB/GLOB Ratio 0.9 RATIO (0.9-2.4); AST(SGOT) 22 U/L (15-37); Alanine Aminotransfer ALT/SGPT 24 U/L (16-61); Albumin, Serum 3.4 g/dL (3.2-5.0); Alkaline Phosphatase 80 U/L (45-117); Anion Gap 3 (5-15); BUN 25 mg/dL (7-18); BUN/Creat Ratio 18.8 RATIO (10-20); Calcium,Total 9.8 mg/dL (8.5-10.1); Chloride 105 mmol/L (98-107); Creatinine, Serum 1.33 mg/dL (0.70-1.30); EST Glomerular Filtration Rate 54 mL/min (>60); Est Glom Filt Rate - Afr Amer 66 mL/min (>60); Globulin 3.7 g/dL (2.2-4.2); Glucose 90 mg/dL (74-106); Potassium 4.7 mmol/L (3.5-5.1); Protein, Total 7.1 g/dL (6.4-8.2); Sodium Level 139 mmol/L (136-145)
== END ==
PROVIDERS: PCP Internal Medicine; Referring Provider Internal Medicine Rheumatology; Visit Provider Internal Medicine Rheumatology
DX: L40.59 Other psoriatic arthropathy (principal); L40.8 Other psoriasis; M19.041 Primary osteoarthritis, right hand; M21.40 Flat foot [pes planus] (acquired), unspecified foot; H35.30 Unspecified macular degeneration; J84.9 Interstitial pulmonary disease, unspecified; I27.20 Pulmonary hypertension, unspecified; I10 Essential (primary) hypertension; E78.5 Hyperlipidemia, unspecified; I25.10 Atherosclerotic heart disease of native coronary artery without angina pectoris; I83.93 Asymptomatic varicose veins of bilateral lower extremities; N40.1 Benign prostatic hyperplasia with lower urinary tract symptoms; E03.9 Hypothyroidism, unspecified; R00.1 Bradycardia, unspecified; G62.9 Polyneuropathy, unspecified
CPT/HCPCS: 36415; 80053; 85025

== ENCOUNTER → 2020-05-20 11:17 | Outpatient (CLI) | payer MEDICARE, SELFPAY ==
[2020-02-29 08:17] VITALS: BMI 23.8
[2020-05-20 12:05] LABS: Absolute Lymphocyte Count 0.93 X10^3/uL (0.83-4.51); Absolute Neutrophil Count 4.7 X10^3/uL (2.0-7.7); Basophil# 0.05 X10^3/uL; Basophil% 0.7 % (0-1); Eosinophil# 0.36 X10^3/uL; Eosinophils% 5.2 % (0-5); Hematocrit 42.9 % (40-54); Hemoglobin 13.6 g/dL (13.0-16.5); Lymphocyte # 0.93 X10^3/ul (4.0); Lymphocyte % 13.5 % (19-41); Mean Corp Hgb Conc 31.7 g/dL (32-36); Mean Corpuscular Hgb 30.6 pg (27.0-32.0); Mean Corpuscular Volume 96.4 fL (80-94); Mean Platelet Vol. 9.9 fl (6.2-12.0); Monocyte# 0.81 X10^3/uL; Monocyte% 11.7 % (0-10); NRBC Flagged by Analyzer 0 % (0-5); Neutrophil # 4.73 X10^3/uL (2.7-7.7); Neutrophil % 68.6 % (47-70); Platelet Count 194 K/mm3 (150-450); RBC Distribution Width SD 45.9 fl (35.1-43.9); Red Blood Count 4.45 M/mm3 (4.6-6.2); White Blood Count 6.9 K/mm3 (4.4-11.0)
[2020-05-20 12:25] LABS: ALB/GLOB Ratio 0.9 RATIO (0.9-2.4); AST(SGOT) 29 U/L (15-37); Alanine Aminotransfer ALT/SGPT 43 U/L (16-61); Albumin, Serum 3.5 g/dL (3.2-5.0); Alkaline Phosphatase 96 U/L (45-117); Anion Gap 3 (5-15); BUN 18 mg/dL (7-18); BUN/Creat Ratio 13.4 RATIO (10-20); Calcium,Total 9.3 mg/dL (8.5-10.1); Chloride 105 mmol/L (98-107); Creatinine, Serum 1.34 mg/dL (0.70-1.30); EST Glomerular Filtration Rate 54 mL/min (>60); Est Glom Filt Rate - Afr Amer 65 mL/min (>60); Globulin 3.8 g/dL (2.2-4.2); Glucose 123 mg/dL (74-106); Potassium 4.2 mmol/L (3.5-5.1); Protein, Total 7.3 g/dL (6.4-8.2); Sodium Level 138 mmol/L (136-145)
== END ==
PROVIDERS: PCP Internal Medicine; Referring Provider Internal Medicine Rheumatology; Visit Provider Internal Medicine Rheumatology
DX: L40.59 Other psoriatic arthropathy (principal); L40.8 Other psoriasis; M19.041 Primary osteoarthritis, right hand; M21.40 Flat foot [pes planus] (acquired), unspecified foot; H35.30 Unspecified macular degeneration; J84.9 Interstitial pulmonary disease, unspecified; I27.20 Pulmonary hypertension, unspecified; I10 Essential (primary) hypertension; E78.5 Hyperlipidemia, unspecified; I25.10 Atherosclerotic heart disease of native coronary artery without angina pectoris; I83.93 Asymptomatic varicose veins of bilateral lower extremities; N40.1 Benign prostatic hyperplasia with lower urinary tract symptoms; E03.9 Hypothyroidism, unspecified; R00.1 Bradycardia, unspecified; G62.9 Polyneuropathy, unspecified
CPT/HCPCS: 36415; 80053; 85025

== ENCOUNTER → 2020-10-28 13:46 | Outpatient (CLI) | payer MEDICARE, SELFPAY ==
[2020-09-10 09:45] VITALS: BMI 23.0
[2020-10-28 15:08] LABS: Absolute Lymphocyte Count 0.88 X10^3/uL (0.83-4.51); Absolute Neutrophil Count 4.1 X10^3/uL (2.0-7.7); Basophil# 0.08 X10^3/uL; Basophil% 1.2 % (0-1); Eosinophils% 7.7 % (0-5); Hematocrit 43.4 % (40-54); Hemoglobin 13.8 g/dL (13.0-16.5); Lymphocyte # 0.88 X10^3/ul (4.0); Lymphocyte % 13.6 % (19-41); Mean Corp Hgb Conc 31.8 g/dL (32-36); Mean Corpuscular Hgb 30.4 pg (27.0-32.0); Mean Corpuscular Volume 95.6 fL (80-94); Mean Platelet Vol. 9.9 fl (6.2-12.0); Monocyte# 0.89 X10^3/uL; Monocyte% 13.8 % (0-10); NRBC Flagged by Analyzer 0 % (0-5); Neutrophil % 63.4 % (47-70); Platelet Count 198 K/mm3 (150-450); RBC Distribution Width CV 13.1 % (11.6-14.6); RBC Distribution Width SD 45.7 fl (35.1-43.9); Red Blood Count 4.54 M/mm3 (4.6-6.2); White Blood Count 6.5 K/mm3 (4.4-11.0)
[2020-10-28 15:20] LABS: AST(SGOT) 30 U/L (15-37); Alanine Aminotransfer ALT/SGPT 39 U/L (16-61); Albumin, Serum 3.7 g/dL (3.2-5.0); Alkaline Phosphatase 93 U/L (45-117); Anion Gap 3 (5-15); BUN 20 mg/dL (7-18); BUN/Creat Ratio 13.7 RATIO (10-20); Calcium,Total 9.6 mg/dL (8.5-10.1); Chloride 102 mmol/L (98-107); Creatinine, Serum 1.46 mg/dL (0.70-1.30); EST Glomerular Filtration Rate 49 mL/min (>60); Est Glom Filt Rate - Afr Amer 59 mL/min (>60); Globulin 3.8 g/dL (2.2-4.2); Glucose 89 mg/dL (74-106); Potassium 4.5 mmol/L (3.5-5.1); Protein, Total 7.5 g/dL (6.4-8.2); Sodium Level 137 mmol/L (136-145)
== END ==
PROVIDERS: PCP Internal Medicine; Referring Provider Internal Medicine Rheumatology; Visit Provider Internal Medicine Rheumatology
DX: L40.59 Other psoriatic arthropathy (principal); Z79.899 Other long term (current) drug therapy; L40.8 Other psoriasis; M19.041 Primary osteoarthritis, right hand; M21.40 Flat foot [pes planus] (acquired), unspecified foot; H35.30 Unspecified macular degeneration; J84.9 Interstitial pulmonary disease, unspecified; I27.20 Pulmonary hypertension, unspecified; I10 Essential (primary) hypertension; E78.5 Hyperlipidemia, unspecified; I25.10 Atherosclerotic heart disease of native coronary artery without angina pectoris; I83.93 Asymptomatic varicose veins of bilateral lower extremities; N40.1 Benign prostatic hyperplasia with lower urinary tract symptoms; E03.9 Hypothyroidism, unspecified; R00.1 Bradycardia, unspecified; G62.9 Polyneuropathy, unspecified
CPT/HCPCS: 36415; 80053; 85025

== ENCOUNTER 2020-12-13 10:13 | Outpatient (RCR) | payer MEDICARE, SELFPAY ==
[2020-09-10 09:45] VITALS: BMI 23.0
== END 2020-12-13 23:59 ==
LOC: IMMUN 10:13
PROVIDERS: PCP Internal Medicine; Visit Provider Family Medicine
DX: Z23 Encounter for immunization (principal)
CPT/HCPCS: 0011A; 0012A; 91301

== ENCOUNTER → 2021-01-24 13:29 | Outpatient (CLI) | payer MEDICARE, SELFPAY ==
[2021-01-13 09:07] VITALS: BMI 22.8
[2021-01-24 15:32] LABS: AST(SGOT) 26 U/L (15-37); Alanine Aminotransfer ALT/SGPT 30 U/L (16-61); Albumin, Serum 3.4 g/dL (3.2-5.0); Alkaline Phosphatase 84 U/L (45-117); Bilirubin, Direct 0.15 mg/dL (0.00-0.30); Cholesterol 153 mg/dL (200); Globulin 3.3 g/dL (2.2-4.2); High Density Lipoprotein 61 mg/dL; Protein, Total 6.7 g/dL (6.4-8.2); Triglycerides 153 mg/dL; Very Low Density Lipoprotein 31 mg/dL (5-40)
== END ==
PROVIDERS: PCP Internal Medicine; Referring Provider Physician Assistant Medical; Visit Provider Physician Assistant Medical
DX: I25.10 Atherosclerotic heart disease of native coronary artery without angina pectoris (principal); E78.00 Pure hypercholesterolemia, unspecified
CPT/HCPCS: 36415; 80061; 80076

== ENCOUNTER → 2021-01-29 14:18 | Outpatient (CLI) | payer MEDICARE, SELFPAY ==
[2021-01-13 09:07] VITALS: BMI 22.8
[2021-01-29 17:56] LABS: Absolute Lymphocyte Count 0.85 X10^3/uL (0.83-4.51); Absolute Neutrophil Count 3.5 X10^3/uL (2.0-7.7); Basophil# 0.09 X10^3/uL; Basophil% 1.6 % (0-1); Eosinophil# 0.42 X10^3/uL; Eosinophils% 7.6 % (0-5); Hematocrit 41.3 % (40-54); Hemoglobin 12.5 g/dL (13.0-16.5); Lymphocyte # 0.85 X10^3/ul (4.0); Lymphocyte % 15.4 % (19-41); Mean Corp Hgb Conc 30.3 g/dL (32-36); Mean Corpuscular Hgb 29.2 pg (27.0-32.0); Mean Corpuscular Volume 96.5 fL (80-94); Mean Platelet Vol. 10.1 fl (6.2-12.0); Monocyte# 0.64 X10^3/uL; Monocyte% 11.6 % (0-10); NRBC Flagged by Analyzer 0 % (0-5); Neutrophil # 3.49 X10^3/uL (2.7-7.7); Neutrophil % 63.4 % (47-70); Platelet Count 188 K/mm3 (150-450); RBC Distribution Width CV 13.2 % (11.6-14.6); RBC Distribution Width SD 46.5 fl (35.1-43.9); Red Blood Count 4.28 M/mm3 (4.6-6.2); White Blood Count 5.5 K/mm3 (4.4-11.0)
[2021-01-29 18:12] LABS: AST(SGOT) 27 U/L (15-37); Alanine Aminotransfer ALT/SGPT 31 U/L (16-61); Albumin, Serum 3.5 g/dL (3.2-5.0); Alkaline Phosphatase 87 U/L (45-117); Anion Gap 2 (5-15); BUN 22 mg/dL (7-18); BUN/Creat Ratio 14.9 RATIO (10-20); Calcium,Total 9.3 mg/dL (8.5-10.1); Chloride 106 mmol/L (98-107); Creatinine, Serum 1.48 mg/dL (0.70-1.30); EST Glomerular Filtration Rate 48 mL/min (>60); Est Glom Filt Rate - Afr Amer 58 mL/min (>60); Globulin 3.5 g/dL (2.2-4.2); Glucose 87 mg/dL (74-106); Potassium 4.3 mmol/L (3.5-5.1); Sodium Level 141 mmol/L (136-145)
== END ==
PROVIDERS: PCP Internal Medicine; Referring Provider Internal Medicine Rheumatology; Visit Provider Internal Medicine Rheumatology
DX: L40.59 Other psoriatic arthropathy (principal); Z79.899 Other long term (current) drug therapy; L40.8 Other psoriasis; M19.041 Primary osteoarthritis, right hand; M21.40 Flat foot [pes planus] (acquired), unspecified foot; H35.30 Unspecified macular degeneration; J84.9 Interstitial pulmonary disease, unspecified; I27.20 Pulmonary hypertension, unspecified; I10 Essential (primary) hypertension; E78.5 Hyperlipidemia, unspecified; I25.10 Atherosclerotic heart disease of native coronary artery without angina pectoris; I83.93 Asymptomatic varicose veins of bilateral lower extremities; N40.1 Benign prostatic hyperplasia with lower urinary tract symptoms; E03.9 Hypothyroidism, unspecified; R00.1 Bradycardia, unspecified; G62.9 Polyneuropathy, unspecified
CPT/HCPCS: 36415; 80053; 85025

== ENCOUNTER → 2021-04-25 13:53 | Outpatient (CLI) | payer MEDICARE, SELFPAY ==
[2021-03-21 12:52] VITALS: BMI 23.0
[2021-04-25 17:30] LABS: Absolute Lymphocyte Count 0.78 X10^3/uL (0.83-4.51); Absolute Neutrophil Count 3.1 X10^3/uL (2.0-7.7); Basophil# 0.07 X10^3/uL; Basophil% 1.4 % (0-1); Eosinophils% 9.7 % (0-5); Hematocrit 38.4 % (40-54); Hemoglobin 12.1 g/dL (13.0-16.5); Lymphocyte # 0.78 X10^3/ul (0.83-4.51); Lymphocyte % 15.2 % (19-41); Mean Corp Hgb Conc 31.5 g/dL (32-36); Mean Corpuscular Hgb 30.1 pg (27.0-32.0); Mean Corpuscular Volume 95.5 fL (80-94); Mean Platelet Vol. 10.4 fl (6.2-12.0); Monocyte# 0.65 X10^3/uL; Monocyte% 12.7 % (0-10); NRBC Flagged by Analyzer 0 % (0-5); Neutrophil # 3.12 X10^3/uL (2.7-7.7); Neutrophil % 60.8 % (47-70); Platelet Count 167 K/mm3 (150-450); RBC Distribution Width CV 13.2 % (11.6-14.6); RBC Distribution Width SD 46.7 fl (35.1-43.9); Red Blood Count 4.02 M/mm3 (4.6-6.2); White Blood Count 5.1 K/mm3 (4.4-11.0)
[2021-04-25 17:50] LABS: AST(SGOT) 21 U/L (15-37); Alanine Aminotransfer ALT/SGPT 28 U/L (16-61); Albumin, Serum 3.2 g/dL (3.2-5.0); Alkaline Phosphatase 90 U/L (45-117); Anion Gap 3 (5-15); BUN 20 mg/dL (7-18); BUN/Creat Ratio 14.8 RATIO (10-20); Calcium,Total 8.9 mg/dL (8.5-10.1); Chloride 108 mmol/L (98-107); Creatinine, Serum 1.35 mg/dL (0.70-1.30); EST Glomerular Filtration Rate 53 mL/min (>60); Est Glom Filt Rate - Afr Amer 65 mL/min (>60); Globulin 3.3 g/dL (2.2-4.2); Glucose 94 mg/dL (74-106); Potassium 4.2 mmol/L (3.5-5.1); Protein, Total 6.5 g/dL (6.4-8.2); Sodium Level 143 mmol/L (136-145)
== END ==
PROVIDERS: PCP Internal Medicine; Referring Provider Internal Medicine Rheumatology; Visit Provider Internal Medicine Rheumatology
DX: L40.59 Other psoriatic arthropathy (principal); Z79.899 Other long term (current) drug therapy; L40.8 Other psoriasis; M19.041 Primary osteoarthritis, right hand; M21.40 Flat foot [pes planus] (acquired), unspecified foot; H35.30 Unspecified macular degeneration; J84.9 Interstitial pulmonary disease, unspecified; I27.20 Pulmonary hypertension, unspecified
CPT/HCPCS: 36415; 80053; 85025

== ENCOUNTER → 2021-08-04 14:55 | Outpatient (CLI) | payer MEDICARE, SELFPAY ==
[2021-08-04 17:55] LABS: Absolute Lymphocyte Count 0.72 X10^3/uL (0.83-4.51); Basophil# 0.05 X10^3/uL; Basophil% 1.1 % (0-1); Eosinophil# 0.39 X10^3/uL; Eosinophils% 8.2 % (0-5); Hematocrit 37.3 % (40-54); Hemoglobin 11.9 g/dL (13.0-16.5); Lymphocyte # 0.72 X10^3/ul (0.83-4.51); Lymphocyte % 15.1 % (19-41); Mean Corp Hgb Conc 31.9 g/dL (32-36); Mean Corpuscular Hgb 30.5 pg (27.0-32.0); Mean Corpuscular Volume 95.6 fL (80-94); Mean Platelet Vol. 10.2 fl (6.2-12.0); Monocyte# 0.63 X10^3/uL; Monocyte% 13.2 % (0-10); NRBC Flagged by Analyzer 0 % (0-5); Neutrophil # 2.96 X10^3/uL (2.7-7.7); Neutrophil % 62.2 % (47-70); Platelet Count 165 K/mm3 (150-450); RBC Distribution Width CV 13.1 % (11.6-14.6); RBC Distribution Width SD 45.6 fl (35.1-43.9); White Blood Count 4.8 K/mm3 (4.4-11.0)
[2021-08-04 18:19] LABS: ALB/GLOB Ratio 0.9 RATIO (0.9-2.4); AST(SGOT) 23 U/L (15-37); Alanine Aminotransfer ALT/SGPT 27 U/L (16-61); Alkaline Phosphatase 84 U/L (45-117); Anion Gap 5 (5-15); BUN 22 mg/dL (7-18); BUN/Creat Ratio 16.1 RATIO (10-20); Calcium,Total 9.3 mg/dL (8.5-10.1); Chloride 105 mmol/L (98-107); Creatinine, Serum 1.37 mg/dL (0.70-1.30); EST Glomerular Filtration Rate 52 mL/min (>60); Est Glom Filt Rate - Afr Amer 63 mL/min (>60); Globulin 3.5 g/dL (2.2-4.2); Glucose 108 mg/dL (74-106); Potassium 4.1 mmol/L (3.5-5.1); Protein, Total 6.5 g/dL (6.4-8.2); Sodium Level 140 mmol/L (136-145)
== END ==
PROVIDERS: PCP Internal Medicine; Referring Provider Internal Medicine Rheumatology; Visit Provider Internal Medicine Rheumatology
DX: L40.59 Other psoriatic arthropathy (principal); Z79.899 Other long term (current) drug therapy; L40.8 Other psoriasis; M19.041 Primary osteoarthritis, right hand; M21.40 Flat foot [pes planus] (acquired), unspecified foot; H35.30 Unspecified macular degeneration; J84.9 Interstitial pulmonary disease, unspecified; I27.20 Pulmonary hypertension, unspecified
CPT/HCPCS: 36415; 80053; 85025

== ENCOUNTER → 2021-10-01 12:36 | Outpatient (CLI) | payer MEDICARE, SELFPAY ==
--- NOTE | 2021-10-01 12:43 | ECHOD_ITS ---
Reason For Study: Murmur Procedure This was a 2D Doppler, Color Flow transthoracic echocardiogram. The exam was of adequate technical quality. Exam performed in department. Left Ventricle Normal LV size. Left ventricular systolic function is normal. The estimated ejection fraction is 70 %. There is evidence of diastolic dysfunction. No regional wall motion abnormalities noted. Right Ventricle Normal RV size. Normal systolic function. Atria The left atrium is moderately enlarged. Normal right atrium. No doppler evidence for ASD. Mitral Valve There is moderate to severe mitral annular calcification. Extension of the mitral annular calcification onto the base of the posterior mitral valve leaflet. Mild mitral valve stenosis. Mild (1+) mitral valve insufficiency. Tricuspid Valve Normal tricuspid valve. Trivial tricuspid valve insufficiency. Right ventricular systolic pressure estimated to be 37 mmHg. Aortic Valve Trisinus/trileaflet aortic valve. Mild diffuse aortic valve thickening. Moderate focal aortic valve calcification. Mild to moderate aortic stenosis. Trivial aortic valve insufficiency. Pulmonic Valve The pulmonic valve is not well visualized. Trivial pulmonic valve insufficiency. Great Vessels The aortic root is not well visualized. Pericardium/Pleural No pericardial effusion. MMode/2D Measurements & Calculations LVIDd: 3.7 cm IVSd: 1.4 cm LVOT diam: 2.0 cm LVIDs: 2.2 cm LVPWd: 1.2 cm LVOT area: 3.2 cm2 FS: 40.6 % LA dimension: 4.8 cm LAV(MOD-bp): 66.4 ml LA A4 area: 20.5 cm2 LAV(MOD-bp) Indexed: 33.7 ml/m2 LAV(MOD-sp2): 74.5 ml LAV(MOD-sp4): 56.9 ml RA A4 area: 12.8 cm2 Time Measurements MV dec time: 0.30 sec Doppler Measurements & Calculations MV E max mohan: 112.7 cm/sec Lat Peak E' Mohan: 12.7 cm/sec Med Peak E' Mohan: 5.0 cm/sec MV A max mohan: 132.1 cm/sec E/E' lat: 8.9 E/E' med: 22.7 MV E/A: 0.85 MV V2 max: 128.4 cm/sec MV P1/2t max mohan: 117.7 cm/sec Ao V2 max: 240.3 cm/sec MV max P.6 mmHg MV P1/2t: 143.2 msec Ao max P.1 mmHg MV V2 mean: 84.2 cm/sec MV dec slope: 240.7 cm/sec2 Ao V2 mean: 165.8 cm/sec MV mean P.1 mmHg Ao mean P.4 mmHg MV V2 VTI: 45.0 cm MVA(P1/2t): 1.5 cm2 Ao V2 VTI: 49.6 cm MVA(VTI): 1.5 cm2 NELLI(I,D): 1.3 cm2 NELLI(V,D): 1.3 cm2 LV V1 max: 100.0 cm/sec SV(LVOT): 66.3 ml TR max mohan: 292.8 cm/sec LV V1 max P.0 mmHg TR max P.3 mmHg LV V1 mean P.9 mmHg LV V1 mean: 63.8 cm/sec LV V1 VTI: 21.0 cm ECHO/Echo Complete Interpretation Summary Left ventricular systolic function is normal. The estimated ejection fraction is 70 %. The left atrium is moderately enlarged. There is moderate to severe mitral annular calcification. Extension of the mitral annular calcification onto the base of the posterior mi tral valve leaflet. Mild mitral valve stenosis. Mild (1+) mitral valve insufficiency. Trivial tricuspid valve insufficiency. Mild to moderate aortic stenosis. Trivial aortic valve insufficiency. Trivial pulmonic valve insufficiency. Right ventricular systolic pressure estimated to be 37 mmHg. There is evidence of diastolic dysfunction. Ordering Physician: Augusto Tran Referring Physician: Jason Snider M.D. Performed By: David Cornelius RCS
== END ==
PROVIDERS: PCP Internal Medicine; Referring Provider Internal Medicine Cardiovascular Disease; Visit Provider Internal Medicine Cardiovascular Disease
DX: I25.10 Atherosclerotic heart disease of native coronary artery without angina pectoris (principal); Z95.0 Presence of cardiac pacemaker; E78.00 Pure hypercholesterolemia, unspecified; Z95.5 Presence of coronary angioplasty implant and graft; Z95.1 Presence of aortocoronary bypass graft; I10 Essential (primary) hypertension
CPT/HCPCS: 93306

== ENCOUNTER → 2021-10-04 09:28 | Outpatient (CLI) | payer MEDICARE, SELFPAY ==
[2021-10-04 11:16] LABS: AST(SGOT) 18 U/L (15-37); Alanine Aminotransfer ALT/SGPT 23 U/L (16-61); Albumin, Serum 3.3 g/dL (3.2-5.0); Alkaline Phosphatase 100 U/L (45-117); Bilirubin, Direct 0.16 mg/dL (0.00-0.30); Cholesterol 142 mg/dL (200); Globulin 3.9 g/dL (2.2-4.2); High Density Lipoprotein 58 mg/dL; Protein, Total 7.2 g/dL (6.4-8.2); Triglycerides 74 mg/dL; Very Low Density Lipoprotein 15 mg/dL (5-40)
== END ==
PROVIDERS: PCP Internal Medicine; Visit Provider Internal Medicine Cardiovascular Disease
DX: E78.00 Pure hypercholesterolemia, unspecified (principal)
CPT/HCPCS: 36415; 80061; 80076

== ENCOUNTER → 2021-10-22 14:08 | Outpatient (CLI) | payer MEDICARE, SELFPAY ==
[2021-10-22 17:50] LABS: Absolute Lymphocyte Count 0.93 X10^3/uL (0.83-4.51); Absolute Neutrophil Count 3.3 X10^3/uL (2.0-7.7); Basophil# 0.07 X10^3/uL; Basophil% 1.3 % (0-1); Eosinophil# 0.44 X10^3/uL; Eosinophils% 8.1 % (0-5); Hematocrit 39.6 % (40-54); Hemoglobin 12.4 g/dL (13.0-16.5); Lymphocyte # 0.93 X10^3/ul (0.83-4.51); Lymphocyte % 17.2 % (19-41); Mean Corp Hgb Conc 31.3 g/dL (32-36); Mean Corpuscular Hgb 29.6 pg (27.0-32.0); Mean Corpuscular Volume 94.5 fL (80-94); Mean Platelet Vol. 10.2 fl (6.2-12.0); Monocyte# 0.67 X10^3/uL; Monocyte% 12.4 % (0-10); NRBC Flagged by Analyzer 0 % (0-5); Neutrophil % 60.8 % (47-70); Platelet Count 180 K/mm3 (150-450); RBC Distribution Width CV 13.1 % (11.6-14.6); RBC Distribution Width SD 45.3 fl (35.1-43.9); Red Blood Count 4.19 M/mm3 (4.6-6.2); White Blood Count 5.4 K/mm3 (4.4-11.0)
[2021-10-22 18:07] LABS: ALB/GLOB Ratio 0.8 RATIO (0.9-2.4); AST(SGOT) 20 U/L (15-37); Alanine Aminotransfer ALT/SGPT 29 U/L (16-61); Albumin, Serum 3.2 g/dL (3.2-5.0); Alkaline Phosphatase 87 U/L (45-117); Anion Gap 4 (5-15); BUN 21 mg/dL (7-18); BUN/Creat Ratio 16.9 RATIO (10-20); Calcium,Total 9.8 mg/dL (8.5-10.1); Chloride 104 mmol/L (98-107); Creatinine, Serum 1.24 mg/dL (0.70-1.30); EST Glomerular Filtration Rate 59 mL/min (>60); Est Glom Filt Rate - Afr Amer 71 mL/min (>60); Globulin 3.8 g/dL (2.2-4.2); Glucose 93 mg/dL (74-106); Potassium 4.3 mmol/L (3.5-5.1); Sodium Level 141 mmol/L (136-145)
== END ==
PROVIDERS: PCP Internal Medicine; Referring Provider Internal Medicine Rheumatology; Visit Provider Internal Medicine Rheumatology
DX: L40.59 Other psoriatic arthropathy (principal); L40.8 Other psoriasis; M19.041 Primary osteoarthritis, right hand; M21.40 Flat foot [pes planus] (acquired), unspecified foot; H35.30 Unspecified macular degeneration; J84.9 Interstitial pulmonary disease, unspecified; I27.20 Pulmonary hypertension, unspecified; I10 Essential (primary) hypertension; E78.5 Hyperlipidemia, unspecified; I25.10 Atherosclerotic heart disease of native coronary artery without angina pectoris; I83.93 Asymptomatic varicose veins of bilateral lower extremities
CPT/HCPCS: 36415; 80053; 85025

== ENCOUNTER 2022-01-28 14:32 | Outpatient (CLI) | payer MEDICARE, SELFPAY ==
[2022-01-28 17:51] LABS: Absolute Lymphocyte Count 0.99 X10^3/uL (0.83-4.51); Absolute Neutrophil Count 4.2 X10^3/uL (2.0-7.7); Basophil# 0.05 X10^3/uL; Basophil% 0.8 % (0-1); Eosinophil# 0.32 X10^3/uL; Eosinophils% 5.1 % (0-5); Hemoglobin 13.3 g/dL (13.0-16.5); Lymphocyte # 0.99 X10^3/ul (0.83-4.51); Lymphocyte % 15.6 % (19-41); Mean Corp Hgb Conc 32.4 g/dL (32-36); Mean Corpuscular Hgb 30.6 pg (27.0-32.0); Mean Corpuscular Volume 94.3 fL (80-94); Mean Platelet Vol. 10.3 fl (6.2-12.0); Monocyte# 0.72 X10^3/uL; Monocyte% 11.4 % (0-10); NRBC Flagged by Analyzer 0 % (0-5); Neutrophil # 4.24 X10^3/uL (2.7-7.7); Neutrophil % 66.9 % (47-70); Platelet Count 158 K/mm3 (150-450); RBC Distribution Width SD 44.5 fl (35.1-43.9); Red Blood Count 4.35 M/mm3 (4.6-6.2); White Blood Count 6.3 K/mm3 (4.4-11.0)
[2022-01-28 18:08] LABS: ALB/GLOB Ratio 0.9 RATIO (0.9-2.4); AST(SGOT) 30 U/L (15-37); Alanine Aminotransfer ALT/SGPT 41 U/L (16-61); Albumin, Serum 3.4 g/dL (3.2-5.0); Alkaline Phosphatase 107 U/L (45-117); Anion Gap 6 (5-15); BUN 23 mg/dL (7-18); Calcium,Total 9.4 mg/dL (8.5-10.1); Chloride 104 mmol/L (98-107); Creatinine, Serum 1.28 mg/dL (0.70-1.30); EST Glomerular Filtration Rate 57 mL/min (>60); Est Glom Filt Rate - Afr Amer 69 mL/min (>60); Globulin 3.7 g/dL (2.2-4.2); Glucose 105 mg/dL (74-106); Protein, Total 7.1 g/dL (6.4-8.2); Sodium Level 140 mmol/L (136-145)
== END 2022-01-28 23:59 | disposition home or self-care (01) ==
LOC: MTLAB 14:35
PROVIDERS: PCP Internal Medicine; Referring Provider Internal Medicine Rheumatology; Visit Provider Internal Medicine Rheumatology
DX: L40.59 Other psoriatic arthropathy (principal); I27.20 Pulmonary hypertension, unspecified; J84.9 Interstitial pulmonary disease, unspecified; Z79.899 Other long term (current) drug therapy; L40.8 Other psoriasis; M19.041 Primary osteoarthritis, right hand; M21.40 Flat foot [pes planus] (acquired), unspecified foot; H35.30 Unspecified macular degeneration; I10 Essential (primary) hypertension
CPT/HCPCS: 36415; 80053; 85025

== ENCOUNTER → 2022-04-22 | Outpatient (CLI) | payer MEDICARE, SELFPAY ==
[2022-04-22 15:19] LABS: Absolute Lymphocyte Count 0.91 X10^3/uL (0.83-4.51); Absolute Neutrophil Count 3.1 X10^3/uL (2.0-7.7); Basophil# 0.05 X10^3/uL; Eosinophil# 0.54 X10^3/uL; Eosinophils% 10.3 % (0-5); Hemoglobin 12.2 g/dL (13.0-16.5); Lymphocyte # 0.91 X10^3/ul (0.83-4.51); Lymphocyte % 17.3 % (19-41); Mean Corp Hgb Conc 32.1 g/dL (32-36); Mean Corpuscular Volume 93.4 fL (80-94); Mean Platelet Vol. 10.2 fl (6.2-12.0); Monocyte% 11.4 % (0-10); NRBC Flagged by Analyzer 0 % (0-5); Neutrophil # 3.14 X10^3/uL (2.7-7.7); Neutrophil % 59.8 % (47-70); Platelet Count 154 K/mm3 (150-450); RBC Distribution Width CV 13.4 % (11.6-14.6); RBC Distribution Width SD 45.2 fl (35.1-43.9); Red Blood Count 4.07 M/mm3 (4.6-6.2); White Blood Count 5.3 K/mm3 (4.4-11.0)
[2022-04-22 15:41] LABS: ALB/GLOB Ratio 0.9 RATIO (0.9-2.4); AST(SGOT) 22 U/L (15-37); Alanine Aminotransfer ALT/SGPT 27 U/L (16-61); Albumin, Serum 3.2 g/dL (3.2-5.0); Alkaline Phosphatase 103 U/L (45-117); Anion Gap 5 (5-15); BUN 20 mg/dL (7-18); BUN/Creat Ratio 14.9 RATIO (10-20); Calcium,Total 9.4 mg/dL (8.5-10.1); Chloride 106 mmol/L (98-107); Creatinine, Serum 1.34 mg/dL (0.70-1.30); EST Glomerular Filtration Rate 54 mL/min (>60); Est Glom Filt Rate - Afr Amer 65 mL/min (>60); Globulin 3.4 g/dL (2.2-4.2); Glucose 123 mg/dL (74-106); Potassium 4.2 mmol/L (3.5-5.1); Protein, Total 6.6 g/dL (6.4-8.2); Sodium Level 139 mmol/L (136-145)
== END | disposition home or self-care (01) ==
PROVIDERS: PCP Internal Medicine; Referring Provider Internal Medicine Rheumatology; Visit Provider Internal Medicine Rheumatology
DX: L40.59 Other psoriatic arthropathy (principal); I27.20 Pulmonary hypertension, unspecified; J84.9 Interstitial pulmonary disease, unspecified; L40.8 Other psoriasis; M19.041 Primary osteoarthritis, right hand; M21.40 Flat foot [pes planus] (acquired), unspecified foot; H35.30 Unspecified macular degeneration; I10 Essential (primary) hypertension; E78.5 Hyperlipidemia, unspecified; I25.10 Atherosclerotic heart disease of native coronary artery without angina pectoris; I83.93 Asymptomatic varicose veins of bilateral lower extremities; N40.1 Benign prostatic hyperplasia with lower urinary tract symptoms; Z79.899 Other long term (current) drug therapy
CPT/HCPCS: 36415; 80053; 85025

== ENCOUNTER → 2022-06-30 | Outpatient (CLI) | payer MEDICARE, SELFPAY ==
[2022-06-30 15:20] LABS: Absolute Lymphocyte Count 0.83 X10^3/uL (0.83-4.51); Absolute Neutrophil Count 4.3 X10^3/uL (2.0-7.7); Basophil# 0.05 X10^3/uL; Basophil% 0.8 % (0-1); Eosinophil# 0.27 X10^3/uL; Eosinophils% 4.4 % (0-5); Hematocrit 39.3 % (40-54); Hemoglobin 12.8 g/dL (13.0-16.5); Lymphocyte # 0.83 X10^3/ul (0.83-4.51); Lymphocyte % 13.4 % (19-41); Mean Corp Hgb Conc 32.6 g/dL (32-36); Mean Corpuscular Hgb 30.3 pg (27.0-32.0); Mean Corpuscular Volume 93.1 fL (80-94); Mean Platelet Vol. 10.5 fl (6.2-12.0); Monocyte# 0.72 X10^3/uL; Monocyte% 11.6 % (0-10); NRBC Flagged by Analyzer 0 % (0-5); Neutrophil % 69.5 % (47-70); Platelet Count 182 K/mm3 (150-450); RBC Distribution Width CV 13.2 % (11.6-14.6); RBC Distribution Width SD 44.3 fl (35.1-43.9); Red Blood Count 4.22 M/mm3 (4.6-6.2); White Blood Count 6.2 K/mm3 (4.4-11.0)
[2022-06-30 15:40] LABS: ALB/GLOB Ratio 0.9 RATIO (0.9-2.4); AST(SGOT) 28 U/L (15-37); Alanine Aminotransfer ALT/SGPT 35 U/L (16-61); Albumin, Serum 3.4 g/dL (3.2-5.0); Alkaline Phosphatase 92 U/L (45-117); Anion Gap 5 (5-15); BUN 28 mg/dL (7-18); BUN/Creat Ratio 19.9 RATIO (10-20); Calcium,Total 9.7 mg/dL (8.5-10.1); Chloride 103 mmol/L (98-107); Creatinine, Serum 1.41 mg/dL (0.70-1.30); EST Glomerular Filtration Rate 51 mL/min (>60); Est Glom Filt Rate - Afr Amer 61 mL/min (>60); Globulin 3.8 g/dL (2.2-4.2); Glucose 103 mg/dL (74-106); Potassium 4.2 mmol/L (3.5-5.1); Protein, Total 7.2 g/dL (6.4-8.2); Sodium Level 137 mmol/L (136-145)
== END | disposition home or self-care (01) ==
LOC: MTLAB 12:57
PROVIDERS: PCP Internal Medicine; Referring Provider Internal Medicine Rheumatology; Visit Provider Internal Medicine Rheumatology
DX: L40.59 Other psoriatic arthropathy (principal); I27.20 Pulmonary hypertension, unspecified; J84.9 Interstitial pulmonary disease, unspecified; Z79.899 Other long term (current) drug therapy; L40.8 Other psoriasis; M19.041 Primary osteoarthritis, right hand; M21.40 Flat foot [pes planus] (acquired), unspecified foot; H35.30 Unspecified macular degeneration; I10 Essential (primary) hypertension; E78.5 Hyperlipidemia, unspecified; I25.10 Atherosclerotic heart disease of native coronary artery without angina pectoris; I83.93 Asymptomatic varicose veins of bilateral lower extremities; N40.1 Benign prostatic hyperplasia with lower urinary tract symptoms
CPT/HCPCS: 36415; 80053; 85025

== ENCOUNTER 2022-09-10 10:14 | Outpatient (CLI) | payer MEDICARE, SELFPAY ==
[2022-09-10 12:18] LABS: Absolute Lymphocyte Count 1.06 X10^3/uL (0.83-4.51); Absolute Neutrophil Count 5.9 X10^3/uL (2.0-7.7); Basophil# 0.05 X10^3/uL; Basophil% 0.6 % (0-1); Eosinophils% 4.8 % (0-5); Hematocrit 39.6 % (40-54); Hemoglobin 13.1 g/dL (13.0-16.5); Lymphocyte # 1.06 X10^3/ul (0.83-4.51); Lymphocyte % 12.8 % (19-41); Mean Corp Hgb Conc 33.1 g/dL (32-36); Mean Corpuscular Volume 93.8 fL (80-94); Mean Platelet Vol. 9.6 fl (6.2-12.0); Monocyte# 0.88 X10^3/uL; Monocyte% 10.6 % (0-10); NRBC Flagged by Analyzer 0 % (0-5); Neutrophil # 5.86 X10^3/uL (2.7-7.7); Neutrophil % 70.8 % (47-70); Platelet Count 197 K/mm3 (150-450); RBC Distribution Width CV 13.9 % (11.6-14.6); RBC Distribution Width SD 46.9 fl (35.1-43.9); Red Blood Count 4.22 M/mm3 (4.6-6.2); White Blood Count 8.3 K/mm3 (4.4-11.0)
[2022-09-10 12:41] LABS: AST(SGOT) 18 U/L (15-37); Alanine Aminotransfer ALT/SGPT 25 U/L (16-61); Albumin, Serum 3.4 g/dL (3.2-5.0); Alkaline Phosphatase 106 U/L (45-117); Anion Gap 6 (5-15); BUN 19 mg/dL (7-18); BUN/Creat Ratio 14.8 RATIO (10-20); Chloride 100 mmol/L (98-107); Creatinine, Serum 1.28 mg/dL (0.70-1.30); EST Glomerular Filtration Rate 57 mL/min (>60); Est Glom Filt Rate - Afr Amer 68 mL/min (>60); Globulin 3.5 g/dL (2.2-4.2); Glucose 104 mg/dL (74-106); Potassium 4.6 mmol/L (3.5-5.1); Protein, Total 6.9 g/dL (6.4-8.2); Sodium Level 136 mmol/L (136-145)
== END 2022-09-10 23:59 | disposition home or self-care (01) ==
LOC: MTLAB 10:15
PROVIDERS: PCP Internal Medicine; Referring Provider Internal Medicine Rheumatology; Visit Provider Internal Medicine Rheumatology
DX: L40.59 Other psoriatic arthropathy (principal)
CPT/HCPCS: 36415; 80053; 85025

== ENCOUNTER → 2023-01-11 | Outpatient (CLI) | payer MEDICARE, SELFPAY ==
[2023-01-11 15:36] LABS: Absolute Lymphocyte Count 1.03 X10^3/uL (0.83-4.51); Absolute Neutrophil Count 5.4 X10^3/uL (2.0-7.7); Basophil# 0.08 X10^3/uL; Eosinophils% 3.9 % (0-5); Hematocrit 42.1 % (40-54); Hemoglobin 13.6 g/dL (13.0-16.5); Lymphocyte # 1.03 X10^3/ul (0.83-4.51); Lymphocyte % 13.4 % (19-41); Mean Corp Hgb Conc 32.3 g/dL (32-36); Mean Corpuscular Hgb 30.6 pg (27.0-32.0); Mean Corpuscular Volume 94.6 fL (80-94); Mean Platelet Vol. 9.7 fl (6.2-12.0); Monocyte# 0.84 X10^3/uL; NRBC Flagged by Analyzer 0 % (0-5); Neutrophil # 5.38 X10^3/uL (2.7-7.7); Neutrophil % 70.3 % (47-70); Platelet Count 231 K/mm3 (150-450); RBC Distribution Width CV 13.2 % (11.6-14.6); RBC Distribution Width SD 45.7 fl (35.1-43.9); Red Blood Count 4.45 M/mm3 (4.6-6.2); White Blood Count 7.7 K/mm3 (4.4-11.0)
[2023-01-11 15:42] LABS: ALB/GLOB Ratio 0.9 RATIO (0.9-2.4); AST(SGOT) 18 U/L (15-37); Alanine Aminotransfer ALT/SGPT 25 U/L (16-61); Albumin, Serum 3.6 g/dL (3.2-5.0); Alkaline Phosphatase 89 U/L (45-117); Anion Gap 7 (5-15); BUN 23 mg/dL (7-18); BUN/Creat Ratio 16.4 RATIO (10-20); Calcium,Total 10.4 mg/dL (8.5-10.1); Chloride 100 mmol/L (98-107); EST Glomerular Filtration Rate 51 mL/min (>60); Est Glom Filt Rate - Afr Amer 62 mL/min (>60); Glucose 89 mg/dL (74-106); Potassium 4.7 mmol/L (3.5-5.1); Protein, Total 7.6 g/dL (6.4-8.2); Sodium Level 137 mmol/L (136-145)
== END | disposition home or self-care (01) ==
LOC: MTLAB 11:32
PROVIDERS: PCP Internal Medicine; Referring Provider Internal Medicine Rheumatology; Visit Provider Internal Medicine Rheumatology
DX: L40.59 Other psoriatic arthropathy (principal); F02.80 Dementia in other diseases classified elsewhere, unspecified severity, without behavioral disturbance, psychotic disturbance, mood disturbance, and anxiety; G30.9 Alzheimer's disease, unspecified; I27.20 Pulmonary hypertension, unspecified; J84.9 Interstitial pulmonary disease, unspecified; Z79.899 Other long term (current) drug therapy; L40.8 Other psoriasis; M19.041 Primary osteoarthritis, right hand; M21.40 Flat foot [pes planus] (acquired), unspecified foot; H35.30 Unspecified macular degeneration; I10 Essential (primary) hypertension; E78.5 Hyperlipidemia, unspecified; I25.10 Atherosclerotic heart disease of native coronary artery without angina pectoris; I83.93 Asymptomatic varicose veins of bilateral lower extremities; N40.1 Benign prostatic hyperplasia with lower urinary tract symptoms; E03.9 Hypothyroidism, unspecified; R00.1 Bradycardia, unspecified; G62.9 Polyneuropathy, unspecified
CPT/HCPCS: 36415; 80053; 85025

== ENCOUNTER 2023-02-14 17:48 | Inpatient (IN) | payer MEDICARE, SELFPAY ==
[2023-02-14 17:49] VITALS: BP 121/63; PULSE 65; RESP 17; TEMP 36.8; O2SAT 94; BMI 25.1
--- OUTSIDE RECORDS SUMMARY | 2023-02-14 17:51 | XMS RPT_ITS | CCD ---
:1935 Author Organization [facility] Care Team Providers Name Role Phone Jason Snider MD Primary Care Provider Augusto Tran Unavailable Kenan Mari Unavailable Lorrie Gao DO, Arnold D Unavailable Testralow, Aracelis Unavailable Claude He Unavailable ALEIDA THOMAS Attending Unavailable MOHAN BENITEZ Referring Unavailable JASON SNIDER Primary Care Unavailable Jason Snider MD Primary Care Provider Augusto Tran Unavailable Kenan Mari Unavailable Lorrie Gao DO, Arnold D Unavailable [place], Aracelis Unavailable Claude He MD Unavailable [phone] JASON SNIDER Attending Unavailable JASON SNIDER Primary Care Unavailable TESTRAKE, ARACELIS Attending Unavailable TESTRALOW, ARACELIS Referring Unavailable JASON SNIDER Primary Care Unavailable TESTRALOW, ARACELIS Attending Unavailable TESTRALOW, ARACELIS Referring Unavailable JASON SNIDER Primary Care Unavailable TESTRALOW, ARACELIS Attending Unavailable JASON SNIDER Referring Unavailable JASON SNIDER Primary Care Unavailable JASON SNIDER Attending Unavailable JASON SNIDER Primary Care Unavailable JASON SNIDER Referring Unavailable JASON SNIDER Primary Care Unavailable JASON SNIDER Attending Unavailable JASON SNIDER Primary Care Unavailable TESTRAKE, ARACELIS Attending Unavailable SNIDER, JASON Franco Primary Care Unavailable SNIDER, JASON Franco Primary Care Unavailable SNIDER, JASON Franco Primary Care Unavailable SNIDER, JASON Franco Referring Unavailable SNIDER, JASON Franco Primary Care Unavailable SNIDER, JASON Franco Attending Unavailable SNIDER, JASON Franco Referring Unavailable SNIDER, JASON Franco Primary Care Unavailable TESTRAKE, ARACELIS Referring Unavailable TESTRAKE, ARACELIS Attending Unavailable TESTRAKE, ARACELIS Attending Unavailable TESTRAKE, ARACELIS Referring Unavailable SNIDER, JASON Franco Primary Care Unavailable SNIDER, JASON Franco Referring Unavailable SNIDER, JASON Franco Primary Care Unavailable TESTRAKE, ARACELIS Attending Unavailable SNIDER, JASON Franco Primary Care Unavailable TESTRAKE, ARACELIS Attending Unavailable TESTRAKE, ARACELIS Referring Unavailable SNIDER, JASON Franco Primary Care Unavailable Allergies Allergy Reported Allergy Type Date of Reaction(s) Facility Classification Allergen(s) Onset Cat; Translations: Propensity to 07-21-20 [facility] [place] (20 sources) [CATS] adverse 06 Clinic reactions Hyoscyamine; Drug Allergy 08-23-20 Unknown [place] (20 sources) Translations: 03 Clinic [HYOSCYAMINE] metroNIDAZOLE; Drug Allergy 08-23-20 Unknown [facility] (20 sources) Translations: 03 Clinic [METRONIDAZOLE] sesame seed Drug Allergy 08-11-20 [place] (20 sources) extract; 05 Clinic Translations: [SESAME SEED] Sulfamethoxazole / Drug Allergy 05-02-20 Rash, Hives, [facility] (20 sources) Trimethoprim; 07 Other: See Work Phon e: Translations: Comments [SULFAMETHOXAZOLE-T RIMETHOPRIM] Sulfonamides Drug Allergy 03-02-20 Rash, Hives [facility] (20 sources) (Antibiotic); 19 Work Phon e: Translations: [SULFA (SULFONAMIDE ANTIBIOTICS)] tree nut, Drug Allergy 03-02-20 Other: See [facility] in (20 sources) unspecified; 19 Comments Work Phone : Translations: [TREE NUT] Trimethoprim; Drug Allergy 03-02-20 Rash, Hives [facility] (20 sources) Translations: 19 Work Phon e: [TRIMETHOPRIM] Gold Shots [Other] Propensity to 08-22-20 [place] (20 sources) adverse 03 Clinic reactions TREE NUTS [Other] Propensity to 08-11-20 [facility] (20 sources) adverse 05 Clinic reactions OTHER; Propensity to 08-11-20 [facility] (2 sources) Translations: adverse 05 Center [OTHER] reactions Repository (disorder) Medications Current Medications Medication Drug Class(es) Dates Sig (Normalized) Sig (Orig inal) gabapentin 100 mg oral capsule Anti-epileptic Start: 05-29-2022 take 1 capsule by gabapentin (20 sources) Agent End: 03-16-2023 mouth once daily at (NEUR ONTIN) 100 bedtime mg capsule Indications: Idiopathic peripheral neuropathy Take 1 capsule by mout h daily at bedtim e for 180 days. 9 0 capsule 3 09/17/2022 03/16/2023 Acti ve Start: 08-07-2021 take 1 capsule by mouth once gabapentin (NEURONTIN) 300 mg End: 08-07-2022 daily in the evening capsule Indications : Idiopathic peripheral neuropath y Take 1 capsule by mouth chau ry evening. 90 capsule 3 08/07/2021 05/29/2022 Discontinued (Dosage adjustment) Comment on above: Take 1 capsule by mouth ever y evening. Take 1 capsule by mouth cary y at bedtime for 180 days. Completed/Discontinued Medications Medication Drug Class(es) Dates Sig (Normalized) Sig (Orig inal) allopurinol 300 mg oral tablet Xanthine Oxidase Start: take 1 tablet by allopurinol (20 sources) Inhibitor End: 03-27-2022 mouth once daily (ZYLOPRI M) 300 mg tablet Indicati ons: Hyperuricemia T albertina 1 tablet by mouth once daily. 90 table t 3 03/27/2022 Acti ve Comment on above: Take 1 tablet by mouth once daily. ascorbic acid 113 mg / beta carotene 716 0 mg / cuprous oxide 0.4 mg / dl-alpha tocopheryl acetate 100 unt / zinc oxide 17.4 mg oral tablet Vitamin C Start: 06-10-2010 beta-carotene(a) w-c & (20 sources) e/zn/cu(OCUVITE PRESERVISION TAB) Take one(1 ) tablet daily. 0 0 06/10/2010 Active Comment on above: Take one(1) tablet daily. aspirin 81 mg oral tablet Platelet Aggregation Start: 08-23-2003 ASPIRIN 81MG TABLET (20 sources) Inhibitor, Nonsteroidal Take one (1) tablet Anti-inflammatory Drug daily . 0 08/23/2003 Active Comment on above: Take one (1) tablet daily . clopidogrel 75 mg oral tablet [id number] Platelet Start: 01-16-2022 take 1 tablet clopidogrel (PLAVIX) (20 sources) Inhibitor by mouth once 75 mg tablet daily Indications: Atherosclerosis of [place] coronary artery of nativ e heart without a ngina pectoris Take 1 tablet by mouth once daily. 90 table t 3 01/16/2022 Acti ve Comment on above: Take 1 tablet by mouth once daily. donepezil hydrochloride 10 mg oral tablet Start: 04-07 take 1 tablet by donepezil (ARICEPT) 10 (20 sources) End: 09-17-2022 mouth once daily mg table t Indications: in the evening Mild cognitiv e disorder Take 1 tablet by mouth every evening. 90 tab let 3 03/27/2022 Acti ve Comment on above: Take 1 tablet by mouth every evening. Take 1 tablet by mouth daily at bedtime. finasteride 5 mg oral tablet 5-alpha Start: 05-19-2021 take 1 finasteride (PROSCAR) 5 (20 sources) Reductase End: 03-27-2022 tablet by mg tablet In dications: Inhibitor mouth once BPH with daily obstruction/low er urinary tract s ymptoms Take 1 tablet b y mouth once daily. 90 tablet 3 03/27/2022 Acti ve Comment on above: Take 1 tablet by mouth once daily. leflunomide 10 mg oral tablet Antirheumatic Agent take 1 leflunomide (17 sources) End: 09-17-2022 tablet by (ARAVA) 10 m g mouth once tablet Take 10 mg daily by mouth once daily. 0 09/17/2022 Discontinued Comment on above: Take 10 mg by mouth once talya ly. levothyroxine sodium 0.175 mg oral tablet l-Thyroxine Start: 12-31-2021 take 1 tablet by levothyroxine (20 sources) End: 06-25-2022 mouth once daily (SYNTHRO ID) 175 mcg for thyroid tablet Indicati ons: dysfunction Hypothyroidism, unspecified typ e Take 1 tablet by melissa th once daily. For Thyroid. 90 tab let 3 06/26/2022 Acti ve Comment on above: Take 1 tablet by mouth once daily. For Thyroid. lisinopril 10 mg oral tablet Angiotensin Start: 08-07-2021 take 1 tablet lisinopril (20 sources) Converting Enzyme End: 09-17-2022 by mouth once (ZESTR IL, PRINIVIL) Inhibitor daily 10 mg tablet Indications: Essential hypertension Ta ke 1 tablet by mouth once daily. 90 tablet 3 2021 Active Comment on above: Take 1 tablet by mouth once daily. loratadine 10 mg oral tablet Start: 08-11-2005 take 1 tablet by CLARITIN 10 MG ORAL TAB (20 sources) mouth once daily Take one(1) tablet daily. 0 2004 Active Comment on above: Take one(1) tablet daily. 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 0 01/16/2022 09/17/2022 Discontinued Comment on above: Take 1 tablet by mouth once daily. MULTIVITAMIN TABLET Start: 08-22-2003 MUL TIVITAMIN TABLET Take one(1) tablet (20 sources) daily. 0 2002 Active Comment on above: Take one(1) tablet daily. nitroglycerin 0.4 mg sublingual tablet Nitrate Vasodilator Start: 1 nitroglycerin (20 sources) sublingual (NITROQUICK) 0. 4 mg SL tablet Dissolve 1 tablet under th e tongue as neede d. FOR CHEST PAIN. IF NO RELIEF CALL 911 25 tablet 6 2018 Active Comment on above: Dissolve 1 tablet under the tongue as needed. FOR CHEST PAIN. IF NO RELIEF CALL 911 ofloxacin 3 mg/ml ophthalmic solution Quinolone Antimicrobial St art: 07-05-2019 ofloxacin (OCUFLOX) (20 sources) 0.3 % ophthalmi c solution Use 1 Drop in both eyes. U se 1 drop in both ey es one day prior t o eye injection. 3 07/05/2019 Acti ve Comment on above: Use 1 Drop in both eyes. Use 1 drop in both eyes one day prior to eye injection. [place]-3 Fatty Acids (FISH OIL) 500 mg cap Start: 08-22 take 1 capsule by [place]-3 Fatty Acids (20 sources) mouth once daily (FISH OIL) 500 mg cap Take 1 capsule by mouth once daily. 0 08/22/2018 Acti ve Comment on above: Take 1 capsule by mouth once daily. pravastatin sodium 40 mg oral tablet HMG-CoA Reductase Start: take 1 tablet pravastatin (20 sources) Inhibitor End: 03-27-2022 by mouth once (PRAVACHOL) 40 mg daily in the tablet Take 1 morning tablet by mouth every morning. 90 tablet 3 03/27/2022 Acti ve Comment on above: Take 1 tablet by mouth every morning. tamsulosin hydrochloride 0.4 mg oral capsule alpha-Adrenergic St art: 08-07-2021 take 1 tamsulosin (FLOMAX) (20 sources) Mikala End: 09-23-2022 capsule by 0.4 mg Indic ations: mouth once BPH with daily in obstruction/low er the evening urinary tract symptoms Take 1 capsule by mout h every evening. 90 capsule 3 09/23 Active Comment on above: Take 1 capsule by mouth ever y evening. triamcinolone acetonide 0.055 mg/actuat metered dose nasal s pray Corticosteroid Start: 05-29-2022 take 2 spray(s) triamcinolone (13 sources) End: 09-17-2022 by inhalation acetonide once daily (NASACORT) 55 m cg nasal inhaler Indications: Vasomotor rhini tis Use 2 Sprays in the nose once daily . 0 05/29/2022 09/17/2022 Discontinued Start: 04-02-2021 triamcinolone aceton kenia (KENALOG) 0.1 % ointment Apply to End: 04-02-2022 affected area once d aily. 30 g 5 04/02/2021 04/02/2022 Active Comment on above: Apply to affected area once daily. Use 2 Sprays in the nose onc e daily. vitamin b12 1 mg oral tablet Vitamin B12 Start: 05-29-2022 take 1 tablet cyanocobalamin (VITAMIN (15 sources) by mouth once B-12) 1,000 mc g tab daily Indications: As thenia Take 1 tablet b y mouth once daily. 0 05/29/2022 Acti ve Comment on above: Take 1 tablet by mouth once daily. Problems Active Problems Problem Classification Problem Date Documented Date Ep isodic/Chronic Acquired foot deformities Hammer toe; [place] (7 sources) Translations: [Other hammer toe(s) (acquired), right foot] Chronic kidney disease Chronic kidney Onset: 08-07-2021 Cheko ontashi (20 sources) disease stage 3A ; 08-11-2016 Translations: [Stage 3a chronic kidney disease] Chronic kidney disease Chronic kidney Onset: (1 source) disease; 08-07-2021 Translations: [Stage 3a chronic kidney disease (HCC)] Conduction disorders Cardiac pacemaker Onset: 09-22-2019 [place] (20 sources) in situ; 09-22-2019 Translations: [Presence of cardiac pacemaker] Coronary atherosclerosis and other heart disease Coronary Onset : 08-24-2019 Chronic (20 sources) atherosclerosis; 03-17-2017 Translations: [Atherosclerotic heart disease of [place] coronary artery without angina pectoris] Delirium, dementia, and amnestic and other cognitive d isorders Cognitive disorder; Onset: 06-22-2020 Chronic (20 sources) Translations: 08-12-2015 [Unspecified mental disorder due to known physiological condition] Disorders of lipid metabolism Mixed Onset: 06-22-2020 Chronic (20 sources) hyperlipidemia; 06-22-2020 Translations: [Mixed hyperlipidemia] Essential hypertension Essential Onset: 06-22-2020 Chron ic (20 sources) hypertension; 06-22-2020 Translations: [Essential (primary) hypertension] Gout and other crystal arthropathies Gout; Translations: Onset: 08-24-2019 Chronic (20 sources) [Gout, unspecified] 08-24-2019 Heart valve disorders Nonrheumatic aortic Onset: 11-06-2022 Chronic (3 sources) (valve) stenosis; 11-06-2022 Translations: [Aortic valve disorders] Hyperplasia of prostate Benign prostatic Onset: 02-10-2017 Chronic (20 sources) hypertrophy with 03-19-2006 outflow obstruction; Translations: [Benign prostatic hyperplasia with lower urinary tract symptoms] Hypertension with complications and secondary hypertension H ypertensive renal Onset: 11-04-2022 Chronic (3 sources) disease; 11-04-2022 Translations: [Hypertensive chronic kidney disease with stage 1 through stage 4 chronic kidney disease, or unspecified chronic kidney disease] Mycoses Onychomycosis; Episodic (4 sources) Translations: [Tinea unguium] Nutritional deficiencies Deficiency of Onset: Ch r[place] (18 sources) macronutrients; 05-29-2022 Translations: [Mild protein-calorie malnutrition] Occlusion or stenosis of precerebral arteries Asymptomatic Onset: 03-23-2017 Chronic (20 sources) carotid artery 03-23-2017 stenosis; Translations: [Occlusion and stenosis of unspecified carotid artery] Open wounds of extremities Amputated little Chronic (4 sources) toe; Translations: [Complete traumatic amputation of one right lesser toe, subsequent encounter] Osteoarthritis Degenerative joint Onset: 05-07-2017 Chronic (20 sources) disease involving 05-07-2017 multiple joints; Translations: [Secondary multiple arthritis] Other gastrointestinal disorders Diarrhea; Episodic (1 source) Translations: [Diarrhea, unspecified] Other inflammatory condition of skin Psoriatic Onset: 04-22 Chronic (20 sources) arthritis; 05-07-2017 Translations: [Other psoriatic arthropathy] Other injuries and conditions due to external causes Fingernail inj ury; Episodic (1 source) Translations: [Unspecified injury of right wrist, hand and finger(s), initial encounter] Other lower respiratory disease Interstitial lung Onset: 04-23 Chronic (20 sources) disease; 05-18-2017 Translations: [Interstitial pulmonary disease, unspecified] Other nervous system disorders Idiopathic Onset: 02-05-2018 Chronic (20 sources) peripheral 03-28-2010 neuropathy; Translations: [Hereditary and idiopathic neuropathy, unspecified] Other skin disorders Keratosis; Episodi c (8 sources) Translations: [Epidermal thickening, unspecified] Other upper respiratory disease Vasomotor rhinitis; Chronic (1 source) Translations: [Vasomotor rhinitis] Other upper respiratory disease Vasomotor rhinitis; Onset: Chronic (1 source) Translations: 05-29-2022 [Vasomotor rhinitis] Peripheral and visceral atherosclerosis Peripheral vascular Chronic (6 sources) disease, unspecified; Translations: [Peripheral vascular disease, unspecified] Thyroid disorders Hypothyroidism; Onset: 02-05-2018 Chronic (20 sources) Translations: 09-29-2006 [Hypothyroidism, unspecified] Past or Other Problems Problem Classification Problem Date Documented Date Ep isodic/Chronic Cardiac dysrhythmias Bradycardia; Onset: 09-22-2019 Episodi c (20 sources) Translations: 10-24-2018 [Bradycardia, unspecified] Conditions associated with dizziness or vertigo Dizziness; Onset: Episodic (2 sources) Translations: 05-29-2022 [Dizziness and giddiness] Genitourinary symptoms and ill-defined conditions Nocturia; Onse t: 03-16-2013 Episodic (20 sources) Translations: 03-16-2013 [Nocturia] Malaise and fatigue Asthenia; Onset: Episodic (4 sources) Translations: 05-18-2022 [Weakness] Other aftercare H/O: high risk Onset: 05-07-2017 Episodic (20 sources) medication; 05-07-2017 Translations: [Other rn long term care (current) drug therapy] Other nutritional; endocrine; and metabolic disorders Hyperurice jorge; Onset: 02-05-2018 Episodic (20 sources) Translations: 09-29-2006 [Hyperuricemia without signs of inflammatory arthritis and tophaceous disease] Results Test Name Value Interpretation Reference Range Facility CNOV on 01-06-2023 CNOV Office Visit (PODIWS) [facility] NAVID CORTES ([id number]) 1935 M [facility] Time Provider Department 01/06/23 2:30 PM ARACELIS ACEVES PODIWS During your visit today, we recorded the following inf ormation about you: Luh Garcia LPN 01/06/2023 7:25 PM Signed AMB ROOMING INTAKE FLOWSHEET DATA Patient presents with: Right Foot - Established Patient, Follow Up SJ Hope DPM 01/06/2023 7:25 PM Signed Subjective: Patient presents to clinic c/o painful toe nails. They state that the nails are especially painful with sh oe gear and pressure. Patient presents to clinic for follow-up callus of right 5th metatarsal and left 2nd toe. No other pedal complaints at this time. Patient states no change in medications or medical his tory since last visit. Objective: Patient presents to clinic ambulating in ne w balance Vasc: DP and PT pulses are decresed bilateral. CFT is less than 5 seconds bilateral. Skin temperature is warm to cool proximal t o distal bilateral. There is mild edema or varicosities noted. Neuro: Protective sensation is absent to the foot and toes when tested with the 5.07 SWM bilateral. Vibratory sensation is absent at the hallux IPJ bilateral. The hallux is downgoing bilateral. Derm: Nails 1-5 left and 1-3 right are discolored-yell ow, thick, crumbly, dystrophic and with subungal debris. Skin is of normal turgor, texture and hair growth is absent bilateral. There is minimal call us of right 5th metatarsal and left 2nd toe. no ulcerations, scars, ve rruca or other lesions noted. Ortho: Muscle strength is 5/5 for all pedal groups monica long. Ankle joint DF is decreased with the knee extended with no pain or crepi tus noted. 1st MPJ ROM is decreased bilateral. There is amputation of right 4 th and 5th toe Assessment: (L85.9) Hyperkeratosis (primary encounter diagnosis) (B35.1) Onychomycosis (S98.131D) Amputation of little toe, right, subsequent encounter ([facility]) (I73.9) PAD (peripheral artery disease) ([facility]) (M20.41, M20.42) Hammer toes of both feet Plan: Patient was seen and evaluated. Callus very minimal on exam. Continue with wider shoes as these appear to be helping. Callus reduced with dremmel Toenails 1-5 left and 1-3 right debrided in sree th and thickness. Q7 modifier F/u in 2 months Aracelis Aceves DPM Referring Provider: ARACELIS ACEVES [[id number]] Allergies As of Date: 01/06/2023 Noted Allergy Reactio n BACTRIM (SULFAMETHOXAZOLE-TRIMETH*05/02/2007 2 - Rash 4 - Hives 14 - Other: See Comments Comments: Elevated bilirubin CATS 07/21/2006 Gold Shots [Other] 08/22/2003 HYOSCYAMINE 08/23/2003 16 - Unknown METRONIDAZOLE 08/23/2003 16 - Unknown SESAME SEED 08/11/2005 SULFA (SULFONAMIDE ANTIBIOTICS) 03/02/2019 2 - Rash 4 - Hives TREE NUT 03/02/2019 14 - Other: See Comments TREE NUTS [Other] 08/11/2005 Comments: ANY NUT THAT GROWS ON TREES TRIMETHOPRIM 03/02/2019 2 - Rash 4 - Hives Date Reviewed: 01/06/2023 Reviewed by: Luh Garcia LPN - Fully Assessed Reason for Visit: Established Patient [175] Follow Up [171] Primary Visit Diagnosis:Hyperkeratosis [L85.9] Other Visit Diagnoses:Onychomycosis [B35.1] Amputation of little toe, right, subsequent encounter ([facility]) [S98.131D] PAD (peripheral artery disease) ([facility]) [I73.9] Hammer toes of both feet [M20.41, M20.42] Prescriptions as of 01/06/2023 - tamsulosin (FLOMAX) 0.4 mg Take 1 capsule by mouth every evening. - lisinopril (ZESTRIL, PRINIVIL) 10 mg tablet Take 1 tablet by mouth once daily. - gabapentin (NEURONTIN) 100 mg capsule Take 1 capsule by mouth daily at bedtime for 180 days. - levothyroxine (SYNTHROID) 175 mcg tablet Take 1 tablet by mouth once daily. For Thyroid. - cyanocobalamin (VITAMIN B-12) 1,000 mcg tab Take 1 tablet by mouth once daily. - donepezil (ARICEPT) 10 mg tablet Take 1 tablet by mouth every evening. - pravastatin (PRAVACHOL) 40 mg tablet Take 1 tablet by mouth every morning. - finasteride (PROSCAR) 5 mg tablet Take 1 tablet by mouth once daily. - allopurinol (ZYLOPRIM) 300 mg tablet Take 1 tablet by mouth once daily. - clopidogrel (PLAVIX) 75 mg tablet Take 1 tablet by mouth once daily. - nitroglycerin sublingual (NITROQUICK) 0.4 mg SL tabl et Dissolve 1 tablet under the tongue as needed. FOR CHES T PAIN. IF NO RELIEF CALL 911 - ofloxacin (OCUFLOX) 0.3 % ophthalmic solution Use 1 Drop in both eyes. Use 1 drop in both eyes one d ay prior to eye injection. - [place]-3 Fatty Acids (FISH OIL) 500 mg cap Take 1 capsule by mouth once daily. - beta-carotene(a) w-c AND e/zn/cu(OCUVITE PRESERVISIO N TAB) Take one(1) tablet daily. - CLARITIN 10 MG ORAL TAB Take one(1) tablet daily. - ASPIRIN 81MG TABLET Take one (1) tablet daily . - MULTIVITAMIN TABLET Take one(1) tablet daily. Problem List As Of Date 01/06/2023 Noted Resolved Retention of urine, unspecifie (more content not inclu ded)... CNOV on 11-11-2022 CNOV Office Visit ([facility]WSTR) [facility] NAVID CORTES ([id number]) 1935 [facility] Date Time Provider Department 11/11/22 3:15 PM GENI NEGRON [facility] During your visit today, we recorded the following inf ormation about you: Temperature Pulse Respiration Blood pressure 96.9 degrees 60/minute 16/minute 142/80 Weight 85.7 kg Geni Negron APRN.CNP 11/11/2022 3:16 PM Signed Subjective The history is provided by the patient a nd the spouse. No conference interpreter was used. PIO Donnellyraghavendra Cortes is a 87 year old male who presents today for CC of fingernail that needs trimmed. Patient was seen today in podiatry and when putting shoes back on caught fingernail and needed it trimmed. No injury to nail bed. BP 142/80 Pulse 60 Temp 36.1 ?C (96.9 ?F) Resp 1 6 Wt 85.7 kg (189 lb) SpO2 98% BMI 27.12 kg/m? 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 ANEMIA NORMOCYTIC 07/21/2006 Bradycardia 10/24/2018 CAD (coronary artery disease) two-vessel CABG 1996 ([facility]); PCI/stent LCX 2010 Carotid stenosis, asymptomatic 03/23/2017 Chronic kidney disease, stage 3 (moderate) 08/11/2016 CKD (chronic kidney disease) stage 3, GFR 30-59 ml/min ([facility]) 08/11/2016 Closed fracture of metatarsal bone(s) 05/14/2010 Cognitive disorder 08/12/2015 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 ([facility]) 04/04/2021 Esophageal reflux Hemorrhage of rectum and anus History of prediabetes 08/05/2016 Hyperlipidemia Hypertensive kidney disease with stage 3a chronic kidn ey disease ([facility]) 11/04/2022 Hypertrophy of prostate with urinary obs truction and other lower urinary tract symptoms (LUTS) 03/19/2006 HYPERURICEMIA 09/29/2006 Idiopathic peripheral neuropathy 03/28/2010 Internal hemorrhoids without mention of complication Interstitial lung disease ([facility]) 05/18/2017 Mixed hyperlipidemia Hyperlipidemia Moderate aortic valve stenosis 11/06/2022 Occlusion and stenosis of carotid artery without menti on of cerebral infarction 07/08/2010 OM (osteomyelitis) ([facility]) 04/03/2010 Osteomyelitis of fifth toe of right foot ([facility]) 020 PAC (premature atrial contraction) 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 cardiac pacemaker 09/22/2019 [employer] dual-chamber pacemaker system; indic ation: symptomatic bradycardia due to sinus nod e dysfunction; system will be MRI conditional after 6 weeks post implant Psoriasis and similar disorders arthritis PSORIATIC ARTHRITIS 09/29/2006 PVC (premature ventricular contraction) Sinus node dysfunction ([facility]) 09/22/2019 Unspecified essential hypertension Essential hypertension Unspecified hypothyroidism Urethral stricture 04/04/2012 Urinary retention 03/16/2013 Vasculitis ([facility]) 04/01/2017 I have confirmed and edited as necessary, the [facility] Review of Systems Constitutional: Negative for chills and fever. Musculoskeletal: Negative for joint pain and myalgias. Skin: Negative for itching and rash. Tear in fingernail All other systems reviewed and are negative. Objective Physical Exam Vitals and nursing note reviewed. Pulmonary: Effort: Pulmonary effort is normal. Musculoskeletal: Hands: Comments: Tear at inner corner, nail trimmed, no tear into nail Skin: General: Skin is warm and dry. Neurological: Mental Status: He is alert and oriented to person, anna ce, and time. Psychiatric: Mood and Affect: Affect normal. ASSESSMENT/PLAN: 1. Injury to fingernail of right hand, i nitial encounter - ICD9: 959.5, ICD10: S69.91XA Trimmed nail without difficulty Keep clean, put bandaid on to protect with antibiotic ointment. Advise to trim all nails. Diagnosis and treatment plan were discus sed and questions were answered to the patient's satisfaction. Pt a cknowledged understanding of concepts and follow up plan. Specific signs and symptoms that would indicate the id ed for higher level of care were discussed in detail warranting prompt ER jt guardado. Geni Negron APRN.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 Allergies As of Date: 11/11/2022 Noted Allergy Reactio n BACTRIM (SULFAMETHOXAZOLE-TRIMETH*05/02/2007 2 - Rash 4 - Hives 14 - Other: See Comments Comments: Elevated bilirubin CATS 07/21/2006 Gold Shots [Other] 08/22/2003 HYOSCYAMINE 08/23/2003 16 - Unknown METRONIDAZOLE 08/23/2003 16 - Unknown SESAME SEED 08/11/2005 SULFA (SULFONAMIDE ANTIBIOTICS) 03/02/2019 2 - Rash 4 - Hives TREE NUT 03/02/2019 14 - Other: See Comments TREE NUTS [Other] 08/11/2005 Comments: ANY NUT THAT GROWS ON TREES TRIMETHOPRIM 03/02/2019 2 - Rash 4 - Hives Date Reviewed: 11/11/2022 Reviewed by: Geni Negron APRN.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 - Fully Assessed Reason for Visit: Finger (more content not included)... CNOV Office Visit (PODIWS) [facility] and NAVID Starr ([id number]) 1935 M [facility] Time Provider Department 11/11/22 1:45 PM TESTRAKE, ARACELIS PODIWS During your visit today, we recorded the following inf ormation about you: Luh Garcia LPN 11/11/2022 2:13 PM Signed AMB ROOMING INTAKE FLOWSHEET DATA Pain Pain Level: 3 Pain Location: Foot-Right Description: Sore Duration Amount of Time: 3 Duration Units: Days Frequency: Intermittent Intervention/Comfort measure: Reposition, Relaxation Patient presents with: Right Foot - Established Patient, Follow Up, Pain Left Foot - Established Patient, Follow Up Luhkat Garcia LPN Aracelis MIGUEL Aceves 11/11/2022 2:13 PM Signed See above Aracelis MIGUEL Aceves 11/11/2022 2:13 PM Signed Subjective: Patient presents to clinic c/o painful toe nails. They state that the nails are especially painful with shoe gear and pr essure. Complains of painful callus to right 5th metatarsal. No other pedal complaints at this time. Patient states no change in medications or medical his tory since last visit. Objective: Patient presents to clinic ambulating in te nnis shoes Vasc: DP and PT pulses are nonpalpable bilateral. CFT is less than 5 seconds bilateral. Skin temperature is warm to cool proximal t o distal bilateral. There is moderate edema or varicosities noted. Neuro: Protective sensation is absent to the foot and toes when tested with the 5.07 SWM bilateral. Vibratory sensation is absent at the hallux IPJ bilateral. The hallux is downgoing bilateral. Derm: Nails 1-5 left and 2-3 right are discolored-yell ow, thick, crumbly, dystrophic and with subungal debris. Skin is of normal turgor, texture and hair growth is absent bilateral. There are callus to r ight 5th metatarsal, right first metatarsal. No other sores o r ulcerations, scars, verruca or other lesions noted. Ortho: Muscle strength is 5/5 for all pedal groups monica long. Ankle joint DF is decreased with the knee extended with no pain or crepi tus noted. 1st MPJ ROM is decreased bilateral. Amputation of right 4th and 5t h toe. 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 Nails 1-5 left and 2-3 right were debrided in length and thickness. Q7 modifier Callus reduced to right 5th metatarsal and right first metatarsal with 15 blade. In order to perform a complete physical exam, l imited shaving of callus area was performed. This incidental service is integral to the evaluation and management visit in order to appropriately manage and treat the patient (for their complaint or for this visit). Will provide patient with gel padding to prevent rubbi ng on 5th metatarsal right foot. Recommend he return to his prior medicine [facility] as these shoes were wider and led to less callus formation. F/u in 5-6 weeks MIGUEL Plata DPM Amelia Smith, LPN 11/11/2022 2:[address] Aceves, Navid was provided with universal s leeve, and instructed/educated in its application, wear, and care . All questions were answered, and patient was able to demonstrate [facility] ce with the necessary skills to utilize the above equipment. Luh Garcia LPN Allergies As of Date: 11/11/2022 Noted Allergy Reactio n BACTRIM (SULFAMETHOXAZOLE-TRIMETH*05/02/2007 2 - Rash 4 - Hives 14 - Other: See Comments Comments: Elevated bilirubin CATS 07/21/2006 Gold Shots [Other] 08/22/2003 HYOSCYAMINE 08/23/2003 16 - Unknown METRONIDAZOLE 08/23/2003 16 - Unknown SESAME SEED 08/11/2005 SULFA (SULFONAMIDE ANTIBIOTICS) 03/02/2019 2 - Rash 4 - Hives TREE NUT 03/02/2019 14 - Other: See Comments TREE NUTS [Other] 08/11/2005 Comments: ANY NUT THAT GROWS ON TREES TRIMETHOPRIM 03/02/2019 2 - Rash 4 - Hives Date Reviewed: 11/11/2022 Reviewed by: Luh Garcia LPN - Fully Assessed Reason for Visit: Established Patient [175] Follow Up [171] Pain [78] Established Patient [175] Follow Up [171] Primary Visit Diagnosis:Hyperkeratosis [L85.9] Other Visit Diagnoses:Onychomycosis [B35.1] Amputation of little toe, right, subsequent encounter ([facility]) [S98.131D] PAD (peripheral artery disease) ([facility]) [I73.9] Hammer toes of both feet [M20.41, M20.42] Prescriptions as of 11/11/2022 - tamsulosin (FLOMAX) 0.4 mg Take 1 capsule by mouth every evening. - lisinopril (ZESTRIL, PRINIVIL) 10 mg tablet Take 1 tablet by mouth once daily. - gabapentin (NEURONTIN) 100 mg capsule Take 1 capsule by mouth daily at bedtime for 180 days. - levothyroxine (SYNTHROID) 175 mcg tablet Take 1 tablet by mouth once daily. For Thyroid. - cyanocobalamin (VITAMIN B-12) 1,000 mcg tab Take 1 tablet by mouth on (more content not included). .. CNOV on 11-06-2022 CNOV Office Visit (INTMWS) [facility] BRANDANCECILIANAVID ([id number]) 1935 M [place] Date Time Provider Department 11/06/22 9:00 AM JASON SNIDER INTMWS During your visit today, we recorded the following inf ormation about you: Temperature Pulse Respiration Blood pressure 97.8 degrees 64/minute 14/minute 110/70 Weight Height 82.6 kg 1.778 m Jason Snider MD 11/06/2022 10:30 AM Signed Navid Geller Sophia is a 86 year old male here for a Medica re Subsequent Annual Wellness Visit Health Risk Assessment In general, health is: Fair Concerns with balance:Not at all Concerns with teeth or dentures:Not at all Concerns with sexual function:Not at all [place] anxious, stressed, angry, irritable , lonely, isolated, or had thoughts of hurting themself: Not at all Has little interest or pleasure in doing things: Not a t all Bothered by feeling down, depressed, or hopeless: Berta Needs help with grocery shopping, cooking, housework, bathing, grooming, dressing, eating, sitting or standing, walking, using the toilet, handling finances, taking medications, using the telephone, or driving: Yes Following safety precautions in the home environment and vehicle: removed throw rugs from floors, installed grab bars in the bathroom, handrails in stairwells, having adequate lighting, wearing seatbelt at all time s?: Yes Smokes cigarettes, vapes, or chew tobacco: No Eats healthy foods including fruits, vegetables, whole grains, and fiber-rich foods: More than half the days Number of days per week engages in exercise: 0 days Average alcohol consumption: Never Current Providers Specialists: I have reviewed specialist-related care o f the patient in the medical record. Current care team: Patient Care Team: Jason Snider MD as PCP - General (Internal Medi cine) Augusto Tran as Specialty Supervisor [employer] (Cardiology) Kenan Mari as Specialty Supervisor [employer] (Pulmonary Disease) Lorne Andrew Jr., DO as Specialty Supervisor [employer] (Op hthalmology) Aracelis Aceves as Specialty Supervisor [employer] [place] (Podiatry) Claude He MD/Diego Wu MD as Sp ecialty Supervisor [employer] [place] (Cerebrovascular) Dr. Julia Barron, rheumatology. Medical/Family history review Reviewed and updated problem list, medical/surgical/fa darrin/social history, medications, and allergies. Opioid use review Patient is not currently using opioids. Depression screening Depression Screening PHQ-2 Score PHQ-9 Score 09/14/2022 1 7 Depression screening tool co mpleted and reviewed. Based on score and interview, patient is not at risk for depression. Screening tool discussed with patient, and I recommended no further intervention at this time . Cognitive screening NA Functional Observation Was the patient's timed Up AND Go test unsteady or ? 1 2 seconds? No Advance Care Planning End of Life planning discussed, includin g patient's advanced directive wishes: Yes Measurements BP 110/70 Pulse 64 Temp 97.8 Resp 14 Ht 5' 10 (1.78m) Wt 182 lb (82.6kg) SpO2 97% BMI 26.11 kg/(m2). Visual acuity (required for Welcome to Medicare): foll ows with optometry/ophthalmology and Right: 20/200 Left: 20/ 70 Both: 20/50 Hearing Evaluation: within normal limits Assessment/Plan - Counseled on healthy diet and regular exercise - Fall avoidance - Depression screening Jason Snider MD 11/06/2022 10:30 AM Signed This note was created using Taktioriter. Subjective Navid Cortes is a 86 year old male here with Jose David. He was doing reasonably well with support at home. He had no falls, and they h ad no new concerns. On retrieval of records, he was found to have aortic valv e stenosis last year, asymptomatic. Review of Systems Constitutional: Negative. Respiratory: Negative. Cardiovascular: Negative. Musculoskeletal: Negative. Neurological: Negative. 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 lisinopril (ZESTRIL, PRINIVIL (more content not includ ed)... Lipid 1996 panel on 11-02-2022 Cholesterol [Mass/Vol] 191 mg/dL Normal <200 [facility] Comment on above: Order Comment: Specimen Type : BLOOD SPECIMENOrdering Facility: [facility] Address: [address] [place] [address] Result Comment: <200 mg/dL, Desirable 200-239 mg/dL, Borderline hi gh >239 mg/dL, High Performed By: #### 80201-2, 3016-3 ####[facility] LABCLIA [id number] ARVIND Lai [facility] [id number] [address] [place] Cholesterol in HDL [Mass/Vol] 55 mg/dL Normal >39 [facility] Comment on above: Order Comment: Specimen Type : BLOOD SPECIMENOrdering Facility: [facility] Address: [address] [place] [address] Result Comment: 40-59 mg/dL, Acceptable >59 mg/dL, High: Negative ri sk factor for coronary heart disease <40 mg/dL, Low: Positive ris k factor for coronary heart disease Performed By: #### 76166-2, 6-3 ####[facility] LABCLIA [id number] [address] OF [facility] Cholesterol in LDL [Mass/Vol] 113 mg/dL High <100 [facility] Comment on above: Order Comment: Specimen Type : BLOOD SPECIMENOrdering Facility: [facility] Address: [address] [place] [address] Result Comment: <100 mg/dL, Optimal 100-129 mg/dL, Near optimal/ above optimal 130-159 mg/dL, Borderline hi gh 160-189 mg/dL, High >189 mg/dL, Very high Secondary prevention optimal LDL Cholesterol levels are recommended to be < 70 mg/dL Performed By: #### 24043-1, 3015-3 ####[facility] LABCLIA [id number] [address] Cholesterol in LDL/Cholesterol in 2.05 {ratio} Normal <2.54 [facility] HDL [Mass ratio] Comment on above: Order Comment: Specimen Type : BLOOD SPECIMENOrdering Facility: [facility] Address: [address] [place] [address] Result Comment: Reference: 1. National Cholesterol Educ ation Program ATP III Guideline At-A-Glance Quick Desk Reference: National Heart, Lung, and Blood [place]. National Institutes of Health. 2001: NIH Publication No. 01-3305. 2. An International Atherosc lerosis Society position paper: global recommendations for the management of dyslipidemia: executive summary, Atherosclerosis. 2014: 232(2):410-413. Performed By: #### 87626-3, 6-3 ####[facility] LABCLIA [id number] [place] [address] [place] Cholesterol in VLDL [Mass/Vol] 23 mg/dL Normal <30 [facility] Comment on above: Order Comment: Specimen Type : BLOOD SPECIMENOrdering Facility: [facility] Address: [address] [address] Performed By: #### 56049-0, 3016-3 ####[facility] LABCLIA [id number] [place] [address] [place] Cholesterol non HDL [Mass/Vol] 136 mg/dL High <130 [facility] Comment on above: Order Comment: Specimen Type : BLOOD SPECIMENOrdering Facility: [facility] Address: [address] [address] Result Comment: <130 mg/dL, Optimal 130-159 mg/dL, Near optimal/ above optimal 160-189 mg/dL, Borderline hi gh 190-219 mg/dL, High >219 mg/dL, Very high Secondary prevention optimal non HDL Cholesterol levels are recommended to be <100 mg/dL Performed By: #### 92151-3, 3015-3 ####[facility] LABCLIA [id number] [place] [address] [place] Cholesterol.total/Cholesterol in HDL 3.47 {ratio} Normal <5.1 0 [facility] [Mass ratio] [place] Comment on above: Order Comment: Specimen Type : BLOOD SPECIMENOrdering Facility: [facility] Address: [address] Performed By: #### 99421-9, 3015-3 ####[facility] LABCLIA [id number] [place] [address] [place] FASTING TIME 15 hrs Normal [facility] Comment on above: Order Comment: Specimen Type : BLOOD SPECIMENOrdering Facility: [facility] Address: [address] Performed By: #### 62844-5, 3015-3 ####[facility] LABCLIA [id number] [place] [address] [place] Triglyceride [Mass/Vol] 116 mg/dL Normal <150 [facility] Comment on above: Order Comment: Specimen Type : BLOOD SPECIMENOrdering Facility: [facility] Address: [address] [place] [id number] Result Comment: <150 mg/dL, Normal 150-199 mg/dL, Borderline hi gh 200-499 mg/dL, High >499 mg/dL, Very high Performed By: #### 43639-6, 3016-3 ####[facility] LABCLIA [id number] [place] [address] [place] TSH SerPl-aCnc on 11-02-2022 TSH Qn 2.870 m[IU]/L Normal 0.270-4.200 [facility] Comment on above: Order Comment: Specimen Type : BLOOD SPECIMENOrdering Facility: [facility] Address: [address] [place], [place] [id number] Performed By: #### 52565-4, 3016-3 ####[facility] LABIA [id number] [address] [place] CNPN on 09-25-2022 CNPN Telephone (INTMWS) [facility] NAVID Starr ([id number]) 1935 M [place] Date Time Provider Department 09/25/22 JASON SNIDER INTMWS During your visit today, we recorded the following inf ormation about you: Suzy Morales LPN 09/25/2022 10:06 AM Signed Rec'd via fax an OT evaluation driving report. This has been entered in scanned documents. Please review. Suzy Morales LPN 09/25/2022 2:07 PM Signed Printed for pcp to review. Pcp signed. T his has been faxed back to [place] [employer] [employer]. Allergies As of Date: 09/25/2022 Noted Allergy Reactio n BACTRIM (SULFAMETHOXAZOLE-TRIMETH*05/02/2007 2 - Rash 4 - Hives 14 - Other: See Comments Comments: Elevated bilirubin CATS 07/21/2006 Gold Shots [Other] 08/22/2003 HYOSCYAMINE 08/23/2003 16 - Unknown METRONIDAZOLE 08/23/2003 16 - Unknown SESAME SEED 08/11/2005 SULFA (SULFONAMIDE ANTIBIOTICS) 03/02/2019 2 - Rash 4 - Hives TREE NUT 03/02/2019 14 - Other: See Comments TREE NUTS [Other] 08/11/2005 Comments: ANY NUT THAT GROWS ON TREES TRIMETHOPRIM 03/02/2019 2 - Rash 4 - Hives Date Reviewed: 09/16/2022 Reviewed by: Luh Garcia LPN - Fully Assessed Reason for Visit: Results [95] Prescriptions as of 09/25/2022 - tamsulosin (FLOMAX) 0.4 mg Take 1 capsule by mouth every evening. - lisinopril (ZESTRIL, PRINIVIL) 10 mg tablet Take 1 tablet by mouth once daily. - gabapentin (NEURONTIN) 100 mg capsule Take 1 capsule by mouth daily at bedtime for 180 days. - levothyroxine (SYNTHROID) 175 mcg tablet Take 1 tablet by mouth once daily. For Thyroid. - cyanocobalamin (VITAMIN B-12) 1,000 mcg tab Take 1 tablet by mouth once daily. - donepezil (ARICEPT) 10 mg tablet Take 1 tablet by mouth every evening. - pravastatin (PRAVACHOL) 40 mg tablet Take 1 tablet by mouth every morning. - finasteride (PROSCAR) 5 mg tablet Take 1 tablet by mouth once daily. - allopurinol (ZYLOPRIM) 300 mg tablet Take 1 tablet by mouth once daily. - clopidogrel (PLAVIX) 75 mg tablet Take 1 tablet by mouth once daily. - nitroglycerin sublingual (NITROQUICK) 0.4 mg SL tabl et Dissolve 1 tablet under the tongue as needed. FOR CHES T PAIN. IF NO RELIEF CALL 911 - ofloxacin (OCUFLOX) 0.3 % ophthalmic solution Use 1 Drop in both eyes. Use 1 drop in both eyes one d ay prior to eye injection. - [place]-3 Fatty Acids (FISH OIL) 500 mg cap Take 1 capsule by mouth once daily. - beta-carotene(a) w-c AND e/zn/cu(OCUVITE PRESERVISIO N TAB) Take one(1) tablet daily. - CLARITIN 10 MG ORAL TAB Take one(1) tablet daily. - ASPIRIN 81MG TABLET Take one (1) tablet daily . - MULTIVITAMIN TABLET Take one(1) tablet daily. Problem List As Of Date 09/25/2022 Noted Resolved Retention of urine, unspecified [R33.9] 03/19/2006 Bladder neck obstruction [N32.0] 03/19/2006 08/05/2016 BPH with obstruction/lower urinary tract sympto*2005 HYDRONEPHROSIS [N13.30] 03/19/2006 05/24/2006 HYPERLIPIDEMIA [E78.5] 07/21/2006 03/17/2016 Atherosclerosis of coronary artery bypass graft*200506/22/2020 ANEMIA NORMOCYTIC [D64.9] 07/21/2006 06/22/2020 ABNORMAL GLUCOSE [R73.09] 07/21/2006 08/12/2015 Hyperuricemia [E79.0] 09/29/2006 Hypothyroidism [E03.9] 09/29/2006 PSORIATIC ARTHRITIS [L40.50] 09/29/2006 08/17/2017 Other hammer toe (acquired) [M20.40] 06/22/20072016 Hallux valgus (acquired) [M20.10] 06/22/2007 6 Other atopic dermatitis and related conditions *200608/12/2015 Unspecified pruritic disorder [L29.9] 07/05/200703/17 ECZEMATOUS DERMATITIS NOS [L25.9] 07/05/2007 6 Other psoriasis [L40.8] 07/05/2007 06/19/2020 XEROSIS///SEBACEOUS GLAND DIS NEC [L73.8] 07/05/2007 0 03/18/2015 SOLAR LENTIGINES///DYSCHROMIA OTHER [L81.9] 07/05/2007 08/12/2015 Other seborrheic keratosis [L82.1] 07/05/2007 03/18/20 15 ACTINIC DAMAGE///CHR SOLAR SKIN DAMAGE NOS [L57*200608/12/2015 Dyshidrosis [L30.1] 11/07/2007 08/05/2016 Hemorrhage of rectum and anus [K62.5] 08/05/2016 Benign neoplasm of skin of lower limb, includin*200708/05/2016 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] 03/28/2010 010 Idiopathic peripheral neuropathy [G60.9] 03/28/2010 DM Neuro Manif Type II [E11.49] 03/28/2010 06/10/2010 OM (osteomyelitis) (HCC) [M86.9] 04/03/2010 08/05/2016 Closed fracture of metatarsal bone(s) [S92.309A]200908/05/2016 Abnormality of gait [R26.9] 05/14/2010 08/05/2016 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 CNOV on 09-17-2022 CNOV Office Visit (INTMWS) [facility] NAVID CORTES ([id number]) 1935 M [place] Date Time Provider Department 09/17/22 6:00 PM JASON SNIDER During your visit today, we recorded the following inf ormation about you: Temperature Pulse Respiration Blood pressure 97.5 degrees 60/minute 16/minute 134/84 Weight 80.7 kg Jason Snider MD 09/18/2022 7:32 AM Signed This note was created using Celltrixter. Subjective Navid Cortes is a 86 year old male was here for follow up with his daughter. He did not do well with driving evaluation and has sto pped driving per recommendations. We reviewed OT evaluation results and recommendations. He continued on treatments for macular degeneration. He n eeded refills. Caregivers report intermittent dizziness, but he had n o concerns today. Vaccines were up to date. We reviewed and completed a DNR CCA form together. Review of Systems Constitutional: Negative. Objective BP 134/84 Pulse 60 Temp 36.4 ?C (97.5 ?F) Resp 1 6 Wt 80.7 kg (178 lb) SpO2 98% BMI 25.54 kg/m? Physical Exam Constitutional: Appearance: Normal appearance. Neurological: Mental Status: He is alert. Gait: Gait normal. Psychiatric: Mood and Affect: Mood normal. Behavior: Behavior normal. Assessment and Plan ASSESSMENT/PLAN: 1. 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 2. Essential hypertension - ICD9: 401.9, ICD10: I10 - fair control - LISINOPRIL 10 MG TABLET 3. Idiopathic peripheral neuropathy - ICD9: 356.9, ICD 10: G60.9 Controlled. - GABAPENTIN 100 MG CAPSULE Jason Snider MD Allergies As of Date: 09/17/2022 Noted Allergy Reactio n BACTRIM (SULFAMETHOXAZOLE-TRIMETH*05/02/2007 2 - Rash 4 - Hives 14 - Other: See Comments Comments: Elevated bilirubin CATS 07/21/2006 Gold Shots [Other] 08/22/2003 HYOSCYAMINE 08/23/2003 16 - Unknown METRONIDAZOLE 08/23/2003 16 - Unknown SESAME SEED 08/11/2005 SULFA (SULFONAMIDE ANTIBIOTICS) 03/02/2019 2 - Rash 4 - Hives TREE NUT 03/02/2019 14 - Other: See Comments TREE NUTS [Other] 08/11/2005 Comments: ANY NUT THAT GROWS ON TREES TRIMETHOPRIM 03/02/2019 2 - Rash 4 - Hives Date Reviewed: 09/16/2022 Reviewed by: Luh Garcia LPN - Fully Assessed Reason for Visit: 4 month f/u [Other] Primary Visit Diagnosis:Dementia of the Alzheimer's ty pe with late onset without behavioral disturbance (HCC) [G30.1, F02.80] Other Visit Diagnoses:Essential hypertension [I10] Idiopathic peripheral neuropathy [G60.9] Order(s):ADVANCE CARE PLAN DISCUSSION [[id number]] Order #: [id number]: 1 lisinopril (ZESTRIL, PRINIVIL) 10 mg tabletTake 1 tabl et by mouth once daily.Disp: 90 tabletRfl: 3 gabapentin (NEURONTIN) 100 mg capsuleTake 1 capsule by mouth daily at bedtime for 180 days.Disp: 90 capsuleRfl: 3 Prescriptions as of 09/18/2022 - lisinopril (ZESTRIL, PRINIVIL) 10 mg tablet Take 1 tablet by mouth once daily. - gabapentin (NEURONTIN) 100 mg capsule Take 1 capsule by mouth daily at bedtime for 180 days. - levothyroxine (SYNTHROID) 175 mcg tablet Take 1 tablet by mouth once daily. For Thyroid. - cyanocobalamin (VITAMIN B-12) 1,000 mcg tab Take 1 tablet by mouth once daily. - donepezil (ARICEPT) 10 mg tablet Take 1 tablet by mouth every evening. - pravastatin (PRAVACHOL) 40 mg tablet Take 1 tablet by mouth every morning. - finasteride (PROSCAR) 5 mg tablet Take 1 tablet by mouth once daily. - allopurinol (ZYLOPRIM) 300 mg tablet Take 1 tablet by mouth once daily. - clopidogrel (PLAVIX) 75 mg tablet Take 1 tablet by mouth once daily. - tamsulosin (FLOMAX) 0.4 mg Take 1 capsule by mouth every evening. - nitroglycerin sublingual (NITROQUICK) 0.4 mg SL tabl et Dissolve 1 tablet under the tongue as needed. FOR CHES T PAIN. IF NO RELIEF CALL 911 - ofloxacin (OCUFLOX) 0.3 % ophthalmic solution Use 1 Drop in both eyes. Use 1 drop in both eyes one d ay prior to eye injection. - [place]-3 Fatty Acids (FISH OIL) 500 mg cap Take 1 capsule by mouth once daily. - beta-carotene(a) w-c AND e/zn/cu(OCUVITE PRESERVISIO N TAB) Take one(1) tablet daily. - CLARITIN 10 MG ORAL TAB Take one(1) tablet daily. - ASPIRIN 81MG TABLET Take one (1) tablet daily . - MULTIVITAMIN TABLET Take one(1) tablet daily. Problem List As Of Date 09/17/2022 Noted Resolved Retention of urine, unspecified [R33.9] 03/19/2006 Bladder neck obstruction [N32.0] 03/19/2006 08/05/2016 BPH with obstruction/lower urinary tract sympto*2005 HYDRONEPHROSIS [N13.30] 03/19/2006 05/24/2006 HYPERLIPIDEMIA [E78.5] 07/21/2006 03/17/2016 Atherosclerosis of coronary artery bypass graft*200506/22/2020 ANEMIA NORMOCYTIC [D64 (more content not included)... CNOV on 09-16-2022 CNOV Office Visit (PODIWS) [facility] St[facility] ([id number]) 1935 M [place] Date Time Provider Department 09/16/22 1:45 PM ARACELIS ACEVES During your visit today, we recorded the following inf ormation about you: Luh Garcia LPN 09/16/2022 11:09 PM Signed AMB ROOMING INTAKE FLOWSHEET DATA Risk Screening Do you have concerns about personal safety or safety i n the home?: No Patient presents with: Left Foot - Established Patient, Callous, Follow Up Right Foot - Established Patient, Callous, Follow Up Patient present with friend/ caregiver. SJ Hope DPM 09/16/2022 11:09 PM Signed FOLLOW UP PODIATRIC OFFICE VISIT Chief Complaint: This 86 yea r old who presents for follow up:callus of b/l feet Patient presents to clinic for follow-up callus of b/l feet He currently denies any pain. PAIN EVALUATION No data found in the last 1 encounters. Hemoglobin A1C Date Value Ref Range Status 08/12/2017 5.8 (H) 4.3 - 5.6 % Final Comment: [place] [employer] guidelines indicate that patients with HgbA1c in the range 5.7-6.4% are at increased risk for developme nt of diabetes, and intervention by lifestyle modification may be benefici al. HgbA1c greater or equal to 6.5% is considered diagnostic of diabetes. 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 ([facility]) 04/04/2021 Esophageal reflux Hemorrhage of rectum and anus History of prediabetes 08/05/2016 Hyperlipidemia Hypertrophy of prostate with urinary obs truction and other lower urinary tract symptoms (LUTS) 03/19/2006 HYPERURICEMIA 09/29/2006 Idiopathic peripheral neuropathy 03/28/2010 Internal hemorrhoids without mention of complication Interstitial lung disease ([facility]) 05/18/2017 Mixed hyperlipidemia Hyperlipidemia Occlusion and stenosis of carotid artery without menti on of cerebral infarction 07/08/2010 OM (osteomyelitis) ([facility]) 04/03/2010 Osteomyelitis of fifth toe of right foot ([facility]) 020 PAC (premature atrial contraction) 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 cardiac pacemaker 09/22/2019 [employer] dual-chamber pacemaker system; indic ation: symptomatic bradycardia due to sinus nod e dysfunction; system will be MRI conditional after 6 weeks post implant Psoriasis and similar disorders arthritis PSORIATIC ARTHRITIS 09/29/2006 PVC (premature ventricular contraction) Sinus node dysfunction ([facility]) 09/22/2019 Unspecified essential hypertension Essential hypertension Unspecified hypothyroidism Urethral stricture 04/04/2012 Urinary retention 03/16/2013 Vasculitis ([facility]) 04/01/2017 Current Outpatient Medications Medication Sig levothyroxine (SYNTHROID) 175 mcg tablet Take 1 tablet by mouth once daily. For Thyroid. lisinopril (ZESTRIL, PRINIVIL) 10 mg tab let Take 1 tablet by mouth once daily. gabapentin (NEURONTIN) 100 mg capsule Ta ke 1 capsule by mouth daily at bedtime for 180 days. cyanocobalamin (VITAMIN B-12) 1,000 mcg tab Take 1 tablet by mouth once daily. triamcinolone acetonide (NASACORT) 55 mcg nasal inhale r Use 2 Sprays in the nose once daily. donepezil (ARICEPT) 10 mg tablet Take 1 tablet by mout h daily at bedtime. pravastatin (PRAVACHOL) 40 mg tablet Take 1 tablet by mouth every morning. finasteride (PROSCAR) 5 mg tablet Take 1 tablet by melissa th once daily. allopurinol (ZYLOPRIM) 300 mg tablet Take 1 tablet by mouth once daily. clopidogrel (PLAVIX) 75 mg tablet Take 1 tablet by melissa th once daily. memantine (NAMENDA) 10 mg tablet Take 1 tablet by mout h once daily. tamsulosin (FLOMAX) 0.4 mg Take 1 capsule by mouth chau evening. nitroglycerin sublingual (NITROQUICK) 0. 4 mg SL tablet Dissolve 1 tablet under the tongue as needed. FOR CHEST PAIN. IF NO RELIEF KELSI L 911 ofloxacin (OCUFLOX) 0.3 % ophthalmic solution Use 1 Dr op in both eyes. Use 1 drop in both eyes one day prior to eye injection. [place]-3 Fatty Acids (FISH OIL) 500 mg cap Take 1 capsule by mouth once daily. beta-carotene(a) w-c AND e/zn/cu(OCUVITE PRESERV ISION TAB) Take one(1) tablet daily. CLARITIN 10 MG ORAL TAB Take one(1) tablet daily. ASPIRIN 81MG TABLET Take one (1) tablet daily . MULTIVITAMIN TABLET Take one(1) tablet daily. donepezil (ARICEPT) 10 mg tablet Take 1 tablet by mout h every evening. leflunomide (ARAVA) 10 mg tablet Take 10 mg by mouth o nce daily. No current facility-administered m (more content not i ncluded)... CNTHERAPY on 08-14-2022 CNTHERAPY OT/PT/Speech Visit (OTNOCA) Normal [facility] NAVID CORTES ([id number]) 1935 Center Date Time Provider Department 08/14/22 9:45 AM ALEIDA THOMAS Date Time Provider Department Center 08/14/2022 9:45 AM [id number] THOMAS [facility] Reason for Visit: OT EVAL [748] OT Discharge [750] Primary Visit Diagnosis:Late onset Alzheimer's dementi a without behavioral disturbance (HCC) [G30.1, F02.80] Allergies As of Date: 08/14/2022 Noted Allergy Reactio n BACTRIM (SULFAMETHOXAZOLE-TRIMETH*05/02/2007 2 - Rash 4 - Hives 14 - Other: See Comments Comments: Elevated bilirubin CATS 07/21/2006 Gold Shots [Other] 08/22/2003 HYOSCYAMINE 08/23/2003 16 - Unknown METRONIDAZOLE 08/23/2003 16 - Unknown SESAME SEED 08/11/2005 SULFA (SULFONAMIDE ANTIBIOTICS) 03/02/2019 2 - Rash 4 - Hives TREE NUT 03/02/2019 14 - Other: See Comments TREE NUTS [Other] 08/11/2005 Comments: ANY NUT THAT GROWS ON TREES TRIMETHOPRIM 03/02/2019 2 - Rash 4 - Hives Date Reviewed: 08/05/2022 Reviewed by: Myrna Espinal LPN - Fully Assessed Prescriptions as of 12/18/2022 - tamsulosin (FLOMAX) 0.4 mg Take 1 capsule by mouth every evening. - lisinopril (ZESTRIL, PRINIVIL) 10 mg tablet Take 1 tablet by mouth once daily. - gabapentin (NEURONTIN) 100 mg capsule Take 1 capsule by mouth daily at bedtime for 180 days. - levothyroxine (SYNTHROID) 175 mcg tablet Take 1 tablet by mouth once daily. For Thyroid. - cyanocobalamin (VITAMIN B-12) 1,000 mcg tab Take 1 tablet by mouth once daily. - donepezil (ARICEPT) 10 mg tablet Take 1 tablet by mouth every evening. - pravastatin (PRAVACHOL) 40 mg tablet Take 1 tablet by mouth every morning. - finasteride (PROSCAR) 5 mg tablet Take 1 tablet by mouth once daily. - allopurinol (ZYLOPRIM) 300 mg tablet Take 1 tablet by mouth once daily. - clopidogrel (PLAVIX) 75 mg tablet Take 1 tablet by mouth once daily. - nitroglycerin sublingual (NITROQUICK) 0.4 mg SL tabl et Dissolve 1 tablet under the tongue as needed. FOR CHES T PAIN. IF NO RELIEF CALL 911 - ofloxacin (OCUFLOX) 0.3 % ophthalmic solution Use 1 Drop in both eyes. Use 1 drop in both eyes one d ay prior to eye injection. - [place]-3 Fatty Acids (FISH OIL) 500 mg cap Take 1 capsule by mouth once daily. - beta-carotene(a) w-c AND e/zn/cu(OCUVITE PRESERVISIO N TAB) Take one(1) tablet daily. - CLARITIN 10 MG ORAL TAB Take one(1) tablet daily. - ASPIRIN 81MG TABLET Take one (1) tablet daily . - MULTIVITAMIN TABLET Take one(1) tablet daily. Letter Text CAMACHO on 08-05-2022 CNOV Office Visit (PODIWS) [facility] NAVID CORTES ([id number]) 1935 M [place] Date Time Provider Department 08/05/22 2:15 PM ARACELIS ACEVES PODIWBrad During your visit today, we recorded the following inf ormation about you: Aracelis Aceves DPM 08/05/2022 9:03 PM Signed FOLLOW UP PODIATRIC OFFICE VISIT Chief Complaint: This 86 year old who presents for fol low up:callus of right fifth metatarsal Patient presents to clinic for follow-up callus of rig ht 5th metatarsal Patient is using wider shoes and feels this is helping He denies any pain today He denies having any open sores. PAIN EVALUATION No data found in the last 1 encounters. Hemoglobin A1C Date Value Ref Range Status 08/12/2017 5.8 (H) 4.3 - 5.6 % Final Comment: [place] [employer] guidelines indicate that patients with HgbA1c in the range 5.7-6.4% are at increased risk for developme nt of diabetes, and intervention by lifestyle modification may be benefici al. HgbA1c greater or equal to 6.5% is considered diagnostic of diabetes. 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 ([facility]) 04/04/2021 Esophageal reflux Hemorrhage of rectum and anus History of prediabetes 08/05/2016 Hyperlipidemia Hypertrophy of prostate with urinary obs truction and other lower urinary tract symptoms (LUTS) 03/19/2006 HYPERURICEMIA 09/29/2006 Idiopathic peripheral neuropathy 03/28/2010 Internal hemorrhoids without mention of complication Interstitial lung disease ([facility]) 05/18/2017 Mixed hyperlipidemia Hyperlipidemia Occlusion and stenosis of carotid artery without menti on of cerebral infarction 07/08/2010 OM (osteomyelitis) ([facility]) 04/03/2010 Osteomyelitis of fifth toe of right foot ([facility]) 020 PAC (premature atrial contraction) 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 cardiac pacemaker 09/22/2019 [employer] dual-chamber pacemaker system; indic ation: symptomatic bradycardia due to sinus nod e dysfunction; system will be MRI conditional after 6 weeks post implant Psoriasis and similar disorders arthritis PSORIATIC ARTHRITIS 09/29/2006 PVC (premature ventricular contraction) Sinus node dysfunction ([facility]) 09/22/2019 Unspecified essential hypertension Essential hypertension Unspecified hypothyroidism Urethral stricture 04/04/2012 Urinary retention 03/16/2013 Vasculitis ([facility]) 04/01/2017 Current Outpatient Medications Medication Sig levothyroxine (SYNTHROID) 175 mcg tablet Take 1 tablet by mouth once daily. For Thyroid. lisinopril (ZESTRIL, PRINIVIL) 10 mg tab let Take 1 tablet by mouth once daily. gabapentin (NEURONTIN) 100 mg capsule Ta ke 1 capsule by mouth daily at bedtime for 180 days. cyanocobalamin (VITAMIN B-12) 1,000 mcg tab Take 1 tablet by mouth once daily. triamcinolone acetonide (NASACORT) 55 mcg nasal inhale r Use 2 Sprays in the nose once daily. donepezil (ARICEPT) 10 mg tablet Take 1 tablet by mout h daily at bedtime. pravastatin (PRAVACHOL) 40 mg tablet Take 1 tablet by mouth every morning. finasteride (PROSCAR) 5 mg tablet Take 1 tablet by melissa th once daily. allopurinol (ZYLOPRIM) 300 mg tablet Take 1 tablet by mouth once daily. clopidogrel (PLAVIX) 75 mg tablet Take 1 tablet by melissa th once daily. memantine (NAMENDA) 10 mg tablet Take 1 tablet by mout h once daily. tamsulosin (FLOMAX) 0.4 mg Take 1 capsule by mouth chau ry evening. nitroglycerin sublingual (NITROQUICK) 0. 4 mg SL tablet Dissolve 1 tablet under the tongue as needed. FOR CHEST PAIN. IF NO RELIEF KELSI L 911 ofloxacin (OCUFLOX) 0.3 % ophthalmic solution Use 1 Dr op in both eyes. Use 1 drop in both eyes one day prior to eye injection. [place]-3 Fatty Acids (FISH OIL) 500 mg cap Take 1 capsule by mouth once daily. beta-carotene(a) w-c AND e/zn/cu(OCUVITE PRESERV ISION TAB) Take one(1) tablet daily. CLARITIN 10 MG ORAL TAB Take one(1) tablet daily. ASPIRIN 81MG TABLET Take one (1) tablet daily . MULTIVITAMIN TABLET Take one(1) tablet daily. donepezil (ARICEPT) 10 mg tablet Take 1 tablet by mout h every evening. leflunomide (ARAVA) 10 mg tablet Take 10 mg by mouth o nce daily. No current facility-administered medications for this visit. ALLERGIES Allergen Reactions Bactrim [Sulfametho* Rash, Hives, Other: See Comments Elevated bilirubin Cats Gold Shots [Other] Hyoscyamine Unknown Metronidazole Unknown Sesame Seed Sulfa (Sulfonamide * Rash, Hi (more content not includ ed)... CNOV on 06-24-2022 CNOV Office Visit (PODIWS) [facility] NAV[facility] CORTES ([id number]) 1935 M [place] Date Time Provider Department 06/24/22 1:30 PM ARACELIS ACEVES During your visit today, we recorded the following inf ormation about you: Luh Garcia LPN 06/29/2022 10:43 PM Signed AMB ROOMING INTAKE FLOWSHEET DATA Risk Screening Do you have concerns about personal safety or safety i n the home?: No Patient presents with: Left Foot - Established Patient, Follow Up Right Foot - Established Patient, Follow Up SJ Hopeew [place], MIGUEL 06/29/2022 10:43 PM Signed FOLLOW UP PODIATRIC OFFICE VISIT Chief Complaint: This 86 yea r old who presents for follow up:callus of b/l feet Patient has been wearing extra depth shoes and wearing hammertoe pad to left 2nd toe PAIN EVALUATION No data found in the last 1 encounters. Hemoglobin A1C Date Value Ref Range Status 08/12/2017 5.8 (H) 4.3 - 5.6 % Final Comment: [place] [employer] guidelines indicate that patients with HgbA1c in the range 5.7-6.4% are at increased risk for developme nt of diabetes, and intervention by lifestyle modification may be benefici al. HgbA1c greater or equal to 6.5% is considered diagnostic of diabetes. 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 ([facility]) 04/04/2021 - Esophageal reflux - Hemorrhage of rectum and anus - History of prediabetes 08/05/2016 - Hyperlipidemia - Hypertrophy of prostate with urinary obstruction and other lower urinary tract symptoms (LUTS) 03/19/2006 - HYPERURICEMIA 09/29/2006 - Idiopathic peripheral neuropathy 03/28/2010 - Internal hemorrhoids without mention of complication - Interstitial lung disease ([facility]) 05/18/2017 - Mixed hyperlipidemia Hyperlipidemia - Occlusion and stenosis of carotid artery without men tion of cerebral infarction 07/08/2010 - OM (osteomyelitis) ([facility]) 04/03/2010 - Osteomyelitis of fifth toe of right foot ([facility]) 01/22 - PAC (premature atrial contraction) - 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 - Presence of cardiac pacemaker 09/22/2019 [employer] dual-chamber pacemaker system; indic ation: symptomatic bradycardia due to sinus nod e dysfunction; system will be MRI conditional after 6 weeks post implant - Psoriasis and similar disorders arthritis - PSORIATIC ARTHRITIS 09/29/2006 - PVC (premature ventricular contraction) - Sinus node dysfunction (HCC) 09/22/2019 - Unspecified essential hypertension Essential hypertension - Unspecified hypothyroidism - Urethral stricture 04/04/2012 - Urinary retention 03/16/2013 - Vasculitis (HCC) 04/01/2017 Current Outpatient Medications Medication Sig - lisinopril (ZESTRIL, PRINIVIL) 10 mg tablet Take 1 t ablet by mouth once daily. - gabapentin (NEURONTIN) 100 mg capsule Take 1 capsule by mouth daily at bedtime for 180 days. - cyanocobalamin (VITAMIN B-12) 1,000 mcg tab Take 1 t ablet by mouth once daily. - triamcinolone acetonide (NASACORT) 55 mcg nasa l inhaler Use 2 Sprays in the nose once daily. - donepezil (ARICEPT) 10 mg tablet Take 1 tablet by mo uth daily at bedtime. - pravastatin (PRAVACHOL) 40 mg tablet Take 1 tablet b y mouth every morning. - finasteride (PROSCAR) 5 mg tablet Take 1 tablet by m outh once daily. - allopurinol (ZYLOPRIM) 300 mg tablet Take 1 tablet b y mouth once daily. - clopidogrel (PLAVIX) 75 mg tablet Take 1 tablet by m outh once daily. - memantine (NAMENDA) 10 mg tablet Take 1 tablet by mo uth once daily. - levothyroxine (SYNTHROID) 175 mcg tablet Take 1 tablet by mouth once daily. For Thyroid. - tamsulosin (FLOMAX) 0.4 mg Take 1 capsule by mouth e very evening. - nitroglycerin sublingual (NITROQUICK) 0.4 mg SL tabl et Dissolve 1 tablet under the tongue as needed. FOR CHEST PAIN. IF NO RELI EF CALL 911 - ofloxacin (OCUFLOX) 0.3 % ophthalmic s olution Use 1 Drop in both eyes. Use 1 drop in both eyes one day prior to eye injection. - [place]-3 Fatty Acids (FISH OIL) 500 mg cap Take 1 capsule by mouth once daily. - beta-carotene(a) w-c AND e /zn/cu(OCUVITE PRESERVISION TAB) Take one(1) tablet daily. - CLARITIN 10 MG ORAL TAB Take one(1) tablet daily. - ASPIRIN 81MG TABLET Take one (1) tablet daily . - MULTIVITAMIN TABLET Take one(1) tablet daily. - donepezil (ARICEPT) 10 mg tablet Take 1 tablet by mo uth every evening. - leflunomide (ARAVA) 10 mg tablet Take 10 mg by mouth onc (more content not included)... CNOV on 05-29-2022 CNOV Office Visit (INTMWS) [facility] NAVID CORT[facility] ([id number]) 1935 M [place] Date Time Provider Department 05/29/22 4:40 PM JASON SNIDER INTMWS During your visit today, we recorded the following inf ormation about you: Pulse Blood pressure Weight 60/minute 136/80 79.4 kg Jason Snider MD 06/04/2022 12:19 AM Signed This note was created using [employer]. Subjective Patient presents with: Follow Up Navid Cortes is a 86 year old male was here with his daughter for an earlier follow up. See My Chart message. Concerns were fatigue , digestive problems including fecal soiling. History is limited by lucia geller as patient indicated concerns were not significant. [facility]. He still drove short distances and st ill felt safe driving. He was taking more naps, and woke up late more often, skipping his breakfast routin e more often. Other symptoms were vague lightheadedness. Dietary cho ices when eating out were not great. We reviewed his labs. Review of Systems Constitutional: Positive for appetite change. Negative for chills, diaphoresis, fever and unexpected weight change. HENT: Negative. Respiratory: Negative for chest tightness and shortnes s of breath. Cardiovascular: Negative. Gastrointestinal: Negative for abdominal pain, blood i n stool, constipation, nausea and vomiting. Genitourinary: Negative for difficulty urinating and d ysuria. Musculoskeletal: Negative. ACTIVE PROBLEM LIST Bph With Obstruction/Lower Urinary Tract Symptoms Hyperuricemia Hypothyroidism Idiopathic Peripheral Neuropathy Nocturia Cognitive Disorder Stage 3a Chronic Kidney Disease (Hcc) Carotid Stenosis, Asymptomatic Polyarticular Psoriatic Arthritis (Hcc) Secondary Osteoarthritis of Multiple Sites Long-Term Use of High-Risk Medication Interstitial Lung Disease (Hcc) Bradycardia Atherosclerosis of [place] Coronary Artery of [place] He art Without Angina Pectoris Gout Presence of Cardiac Pacemaker Mixed Hyperlipidemia Essential Hypertension Dementia of The Alzheimer's Type With Late Onset Without Behavioral Disturbance (Hcc) Mild Protein-Calorie Malnutrition (Hcc) Current Outpatient Medications Medication Sig - lisinopril (ZESTRIL, PRINIVIL) 10 mg tablet Take 1 t ablet by mouth once daily. - gabapentin (NEURONTIN) 100 mg capsule Take 1 capsule by mouth daily at bedtime for 180 days. - cyanocobalamin (VITAMIN B-12) 1,000 mcg tab Take 1 t ablet by mouth once daily. - triamcinolone acetonide (NASACORT) 55 mcg nasa l inhaler Use 2 Sprays in the nose once daily. - donepezil (ARICEPT) 10 mg tablet Take 1 tablet by mo uth every evening. - donepezil (ARICEPT) 10 mg tablet Take 1 tablet by mo uth daily at bedtime. - pravastatin (PRAVACHOL) 40 mg tablet Take 1 tablet b y mouth every morning. - finasteride (PROSCAR) 5 mg tablet Take 1 tablet by m outh once daily. - allopurinol (ZYLOPRIM) 300 mg tablet Take 1 tablet b y mouth once daily. - clopidogrel (PLAVIX) 75 mg tablet Take 1 tablet by m outh once daily. - memantine (NAMENDA) 10 mg tablet Take 1 tablet by mo uth once daily. - levothyroxine (SYNTHROID) 175 mcg tablet Take 1 tablet by mouth once daily. For Thyroid. - tamsulosin (FLOMAX) 0.4 mg Take 1 capsule by mouth e very evening. - leflunomide (ARAVA) 10 mg tablet Take 10 mg by mouth once daily. - nitroglycerin sublingual (NITROQUICK) 0.4 mg SL tabl et Dissolve 1 tablet under the tongue as needed. FOR CHEST PAIN. IF NO RELI EF CALL 911 - ofloxacin (OCUFLOX) 0.3 % ophthalmic s olution Use 1 Drop in both eyes. Use 1 drop in both eyes one day prior to eye injection. - [place]-3 Fatty Acids (FISH OIL) 500 mg cap Take 1 capsule by mouth once daily. - beta-carotene(a) w-c AND e /zn/cu(OCUVITE PRESERVISION TAB) Take one(1) tablet daily. - CLARITIN 10 MG ORAL TAB Take one(1) tablet daily. - ASPIRIN 81MG TABLET Take one (1) tablet daily . - MULTIVITAMIN TABLET Take one(1) tablet daily. No current facility-administered medications for this visit. Objective BP 136/80 Pulse 60 Wt 79.4 kg (175 lb) SpO2 96% BMI 25.11 kg/m? Physical Exam Constitutional: Appearance: He is not ill-appearing. HENT: Head: Normocephalic. Eyes: General: No scleral icterus. Conjunctiva/sclera: Conjunctivae normal. Cardiovascular: Rate and Rhythm: Normal rate and regular rhythm. Pulmonary: Breath sounds: Normal breath sounds. Abdominal: General: Bowel sounds are normal. There is no distensi on. Palpations: Abdomen is soft. Tenderness: There is no abdominal tenderness. Musculoskeletal: Right lower leg: No edema. Left lower leg: No edema. Neurological: General: No focal deficit present. Mental Status: He is alert. Gait: Gait normal. Component Latest Ref Rng AND Units 05/18/2022 Protein, Total 6.3 - 8.0 g/dL 6.1 (L) Albumin 3.9 - 4.9 g/dL 3.8 (L) Calcium 8.5 - 10.2 mg/dL 9.4 Bilirubin, Tot (more content not included)... CBC panel Auto (Bld) on 05-18-2022 Erythrocyte distribution width 13.4 % Normal 11.5-15.0 [facility] (RBC) [Ratio] Comment on above: Order Comment: Specimen Type : BLOOD SPECIMENOrdering Facility: [facility] Address: [address] [place] [address] Performed By: #### 49264-8 # ###[facility] [id number] [place] [id number] [place] Hematocrit (Bld) [Volume fraction] 40.2 % Normal 39.0-5 1.0 [facility] Comment on above: Order Comment: Specimen Type : BLOOD SPECIMENOrdering Facility: [facility] Address: [address] [place] [address] Performed By: #### 76262-8 # ###[facility] [id number] [place] [address] [place] Hemoglobin (Bld) [Mass/Vol] 13.1 g/dL Normal 13.0-17.0 [facility] Comment on above: Order Comment: Specimen Type : BLOOD SPECIMENOrdering Facility: [facility] Address: [address] [place] [address] Performed By: #### 76496-0 # ###[facility] BAYDOMENICALIA [id number] [place] [address] [place] MCH (RBC) [Entitic mass] 30.3 pg Normal 26.0-34.0 [facility] Comment on above: Order Comment: Specimen Type : BLOOD SPECIMENOrdering Facility: [facility] Address: [address] [place] [address] Performed By: #### 42294-5 # ###[facility] [id number] [place] [address] [place] MCHC (RBC) [Mass/Vol] 32.6 g/dL Normal 30.5-36.0 [facility] Comment on above: Order Comment: Specimen Type : BLOOD SPECIMENOrdering Facility: [facility] Address: [address] [place] [address] Performed By: #### 37283-1 # ###[facility] [id number] [place] [address] [place] MCV (RBC) [Entitic vol] 92.8 fL Normal 80.0-100.0 [facility] Comment on above: Order Comment: Specimen Type : BLOOD SPECIMENOrdering Facility: [facility] Address: [address] [place] [address] Performed By: #### 85602-6 # ###[facility] RUDDYWDOMENICALIA [id number] [place] [address] [place] Nucleated RBC (Bld) [#/Vol] 10*3/uL Normal <0.01 [facility] Comment on above: Order Comment: Specimen Type : BLOOD SPECIMENOrdering Facility: [facility] Address: [address] [place] [address] Performed By: #### 48002-7 # ###[facility] RONALDEsperanzaMORA [id number] [place] [address] [place] Platelet mean volume (Bld) [Entitic 9.7 fL Normal 9.0-1 2.7 [facility] vol] Comment on above: Order Comment: Specimen Type : BLOOD SPECIMENOrdering Facility: [facility] Address: [address] [place], [place] [address] Performed By: #### 89759-8 # ###[facility] BAYMORA [id number] [place] [address] [place] Platelets (Bld) [#/Vol] 167 10*3/uL Normal 150-400 [facility] Comment on above: Order Comment: Specimen Type : BLOOD SPECIMENOrdering Facility: [facility] Address: [address] [place], [place] [address] Performed By: #### 24836-0 # ###[facility] BAYDOMENICALIA [id number] [place] [address] [place] RBC (Bld) [#/Vol] 4.33 10*6/uL Normal 4.20-6.00 [facility] Comment on above: Order Comment: Specimen Type : BLOOD SPECIMENOrdering Facility: [facility] Address: [address] [place] [address] Performed By: #### 58999-8 # ###[facility] RONALDFREDDYA [id number] [place] [address] [place] WBC (Bld) [#/Vol] 6.02 10*3/uL Normal 3.70-11.00 [facility] Comment on above: Order Comment: Specimen Type : BLOOD SPECIMENOrdering Facility: [facility] Address: [address] [place] [address] Performed By: #### 76887-8 # ###[facility] RONALDFREDDYA [id number] [place] [address] [place] Comprehensive metabolic 2000 panel on 05-18-2022 Albumin [Mass/Vol] 3.8 g/dL Low 3.9-4.9 [facility] Comment on above: Order Comment: Specimen Type : BLOOD SPECIMENOrdering Facility: [facility] Address: [address] [place] [address] Performed By: #### 61908-7 # ###[facility] RONALDBARNSDALLMORA [id number] [place] [address] [place] ALP [Catalytic activity/Vol] 93 U/L Normal 38-113 [facility] Comment on above: Order Comment: Specimen Type : BLOOD SPECIMENOrdering Facility: [facility] Address: [address] [place] [address] Performed By: #### 45972-5 # ###[facility] RONALDMAUREENA [id number] [place] [address] [place] ALT [Catalytic activity/Vol] 14 U/L Normal 10-54 [facility] Comment on above: Order Comment: Specimen Type : BLOOD SPECIMENOrdering Facility: [facility] Address: [address] [place] [address] Performed By: #### 99540-2 # ###[facility] YARITZA MILLTOWNCLIA [id number] [address] [facility] [place] [address] [place] Anion gap [Moles/Vol] 8 mmol/L Low 9-18 [facility] Comment on above: Order Comment: Specimen Type : BLOOD SPECIMENOrdering Facility: [facility] Address: [address] [place] [address] Performed By: #### 00447-7 # ###[facility] MILLTOWNCLIA [id number] [address] [facility] [place] [address] [place] AST [Catalytic activity/Vol] 21 U/L Normal 14-40 [facility] Comment on above: Order Comment: Specimen Type : BLOOD SPECIMENOrdering Facility: [facility] Address: [address] [place] [address] Performed By: #### 07370-0 # ###[facility] MILLTOWNCLIA [id number] [place] [address] [place] Bilirubin [Mass/Vol] 0.5 mg/dL Normal 0.2-1.3 [facility] Comment on above: Order Comment: Specimen Type : BLOOD SPECIMENOrdering Facility: [facility] Address: [address] [place] [address] Performed By: #### 19267-1 # ###[facility] MILLTOWNCLIA [id number] [address] [facility] [place] [address] [place] Calcium [Mass/Vol] 9.4 mg/dL Normal 8.5-10.2 [facility] Comment on above: Order Comment: Specimen Type : BLOOD SPECIMENOrdering Facility: [facility] Address: [address] [place] [address] Performed By: #### 82365-6 # ###[facility] MILLTOWNCLIA [id number] [address] [place] [address] [place] Chloride [Moles/Vol] 102 mmol/L Normal 97-105 [facility] Comment on above: Order Comment: Specimen Type : BLOOD SPECIMENOrdering Facility: [facility] Address: [address] [place] [address] Performed By: #### 86191-6 # ###[facility] MILLWNCLIA [id number] [place] [address] [place] CO2 [Moles/Vol] 26 mmol/L Normal 22-30 [facility] Comment on above: Order Comment: Specimen Type : BLOOD SPECIMENOrdering Facility: [facility] Address: [address] [place] [address] Performed By: #### 25132-4 # ###[facility] MILLWAKLIA [id number] [place] [address] [place] Creatinine [Mass/Vol] 1.40 mg/dL High 0.73-1.22 [facility] Comment on above: Order Comment: Specimen Type : BLOOD SPECIMENOrdering Facility: [facility] Address: [address] [place] [address] Performed By: #### 25994-3 # ###[facility] [id number] [place] [address] [place] ESTIMATED GLOMERULAR 49 mL/min/1.73m??? Low >=60 [facility] FILTRATION RATE Comment on above: Order Comment: Specimen Type : BLOOD SPECIMENOrdering Facility: [facility] Address: [address] [place] [address] Result Comment: Estimated Gl omerular Filtration Rate (eGFR) is calculated using the 2020 CK D-EPI creatinine equation. This equation utilizes serum crea tinine, sex, and age as parameters. The creatinine assay has traceab le calibration to isotope dilution-mass spectrometry. Refer to KDIGO guidelines for clinical interpretation. In patients with unstable renal function, e.g. those with acute kidney inju ry, the eGFR may not accurately reflect actual GFR. Performed By: #### 72552-5 # ###[facility] YARITZA CARDENASTOWNCLIA [id number] [place] [address] [place] Glucose [Mass/Vol] 103 mg/dL High 74-99 [facility] Comment on above: Order Comment: Specimen Type : BLOOD SPECIMENOrdering Facility: [facility] Address: [address] [place] [address] Result Comment: The [place] Diabetes Association (ADA) provides guidance for cutoff values for fasting glucose and random glucose. The ADA defines fasting as no caloric intake for at least 8 hours. Fas ting plasma glucose results between 100 to 125 mg/dL indicate increased risk for diabetes (prediabetes). Fasting plasma glucose resul ts greater than or equal to 126 mg/dL meet the criteria for diagnosis of diabetes. In the absence of unequivocal hyperglycemia, results should be confirmed by repeat testing. In a patient with classic s ymptoms of hyperglycemia or hyperglycemic crisis, random plasma glucose results greater than or equal to 200 mg/dL meet the criteria for diagnosis of diabetes. Reference: Standards of [facility] Care in Diabetes 2016, [place] Diabetes Association. Diabetes Care. 2016.39(Suppl 1). Performed By: #### 98718-8 # ###[facility] RONALDZACWDOMENICALIA [id number] [place] [address] [place] Potassium [Moles/Vol] 4.6 mmol/L Normal 3.7-5.1 [facility] Comment on above: Order Comment: Specimen Type : BLOOD SPECIMENOrdering Facility: [facility] Address: [address] [place] [address] Performed By: #### 07844-6 # ###[facility] MILLWNCLIA [id number] [place] [address] [place] Protein [Mass/Vol] 6.1 g/dL Low 6.3-8.0 [facility] Comment on above: Order Comment: Specimen Type : BLOOD SPECIMENOrdering Facility: [facility] Address: [address] [place] [address] Performed By: #### 64583-1 # ###[facility] MILLWNCLIA [id number] [place] [address] [place] Sodium [Moles/Vol] 136 mmol/L Normal 136-144 [facility] Comment on above: Order Comment: Specimen Type : BLOOD SPECIMENOrdering Facility: [facility] Address: [address] [place] [address] Performed By: #### 38398-8 # ###[facility] MILLTOWNCLIA [id number] [place] [address] [place] Urea nitrogen [Mass/Vol] 26 mg/dL High 9-24 [facility] Comment on above: Order Comment: Specimen Type : BLOOD SPECIMENOrdering Facility: [facility] Address: [address] [place] [address] Performed By: #### 37092-8 # ###[facility] [id number] [place] [address] [place] TSH SerPl-aCnc on 05-18-2022 TSH Qn 2.130 m[IU]/L Normal 0.270-4.200 [facility] Comment on above: Order Comment: Specimen Type : BLOOD SPECIMENOrdering Facility: [facility] Address: [address] [place] [address] Performed By: #### 3016-3 ## ##[facility] LABCLIA [id number] [facility] [id number] [address] [place] Vit B12 SerPl-mCnc on 05-18-2022 Cobalamin (Vitamin B12) 428 pg/mL Normal 232-1,245 [facility] [Mass/Vol] Comment on above: Order Comment: Specimen Type : BLOOD SPECIMENOrdering Facility: [facility] Address: [address] [place] [address] Performed By: #### 2132-9 ## ##[facility] LABCLIA [id number] [place] [id number] [place] [facility] CNOV on 05-13-2022 CNOV Office Visit (PODIWS) [facility] SOPHIANAVID A ([id number]) 1935 M [place] Date Time Provider Department 05/13/22 2:00 PM ARACELIS ACEVES During your visit today, we recorded the following inf ormation about you: Madeleine Bojorquez 05/18/2022 7:52 AM Signed Patient presents with: Right 3rd Toe - Other, black nail Left Foot - Follow Up, Callous Right Foot - Follow Up, Callous AMB ROOMING INTAKE FLOWSHEET DATA Risk Screening Do you have concerns about personal safety or safety i n the home?: No No pain. Araeclis Aceves DPM 05/18/2022 7:52 AM Signed FOLLOW UP PODIATRIC OFFICE VISIT Chief Complaint: This 86 year old who presents for fol low up:callus of both feet. Patient presents to clinic for follow-up callus. He is using hammertoe pad and wider new balance shoes . He has no issues Medical Collections states he did bump his toenail and it is rosemarie ck. PAIN EVALUATION No data found in the last 1 encounters. Hemoglobin A1C Date Value Ref Range Status 08/12/2017 5.8 (H) 4.3 - 5.6 % Final Comment: [place] Diabetes Association guidelines indicate that patients with HgbA1c in the range 5.7-6.4% are at increased risk for developme nt of diabetes, and intervention by lifestyle modification may be benefici al. HgbA1c greater or equal to 6.5% is considered diagnostic of diabetes. 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 ([facility]) 04/04/2021 - Esophageal reflux - Hemorrhage of rectum and anus - History of prediabetes 08/05/2016 - Hyperlipidemia - Hypertrophy of prostate with urinary obstruction and other lower urinary tract symptoms (LUTS) 03/19/2006 - HYPERURICEMIA 09/29/2006 - Idiopathic peripheral neuropathy 03/28/2010 - Internal hemorrhoids without mention of complication - Interstitial lung disease ([facility]) 05/18/2017 - Mixed hyperlipidemia Hyperlipidemia - Occlusion and stenosis of carotid artery without men tion of cerebral infarction 07/08/2010 - OM (osteomyelitis) ([facility]) 04/03/2010 - Osteomyelitis of fifth toe of right foot ([facility]) 01/22 - PAC (premature atrial contraction) - 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 - Presence of cardiac pacemaker 09/22/2019 [employer] dual-chamber pacemaker system; indic ation: symptomatic bradycardia due to sinus nod e dysfunction; system will be MRI conditional after 6 weeks post implant - Psoriasis and similar disorders arthritis - PSORIATIC ARTHRITIS 09/29/2006 - PVC (premature ventricular contraction) - Sinus node dysfunction ([facility]) 09/22/2019 - Unspecified essential hypertension Essential hypertension - Unspecified hypothyroidism - Urethral stricture 04/04/2012 - Urinary retention 03/16/2013 - 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 - pravastatin (PRAVACHOL) 40 mg tablet Take 1 tablet b y mouth every morning. - finasteride (PROSCAR) 5 mg tablet Take 1 tablet by m outh once daily. - allopurinol (ZYLOPRIM) 300 mg tablet Take 1 tablet b y mouth once daily. - clopidogrel (PLAVIX) 75 mg tablet Take 1 tablet by m outh once daily. - memantine (NAMENDA) 10 mg tablet Take 1 tablet by mo uth once daily. - levothyroxine (SYNTHROID) 175 mcg tablet Take 1 tablet by mouth once daily. For Thyroid. - lisinopril (ZESTRIL, PRINIVIL) 10 mg tablet Take 1 t ablet by mouth once daily. - gabapentin (NEURONTIN) 300 mg capsule Take 1 capsule by mouth every evening. - tamsulosin (FLOMAX) 0.4 mg Take 1 capsule by mouth e very evening. - leflunomide (ARAVA) 10 mg tablet Take 10 mg by mouth once daily. - nitroglycerin sublingual (NITROQUICK) 0.4 mg SL tabl et Dissolve 1 tablet under the tongue as needed. FOR CHEST PAIN. IF NO RELI EF CALL 911 - ofloxacin (OCUFLOX) 0.3 % ophthalmic s olution Use 1 Drop in both eyes. Use 1 drop in both eyes one day prior to eye injection. - [place]-3 Fatty Acids (FISH OIL) 500 mg cap Take 1 capsule by mouth once daily. - beta-carotene(a) w-c AND e /zn/cu(OCUVITE PRESERVISION TAB) Take one(1) tablet daily. - CLARITIN 10 MG ORAL TAB Take one(1) tablet daily. - ASPIRIN 81MG TABLET Take one (1) tablet daily . - MULTIVITAMIN TABLET Take one(1) tablet daily. - donepezil (ARICEPT) 10 mg tablet Take 1 tablet by ut ut daily at bedtime. No current facility-administered medications for this visit. ALLERGIES Allergen Reactio (more content not included)... CNOV on 03-31-2022 CNOV Office Visit (PODIWS) [facility] Starr ([id number]) 1935 M [place] Date Time Provider Department 03/31/22 2:15 PM ARACELIS ACEVES PODIWS During your visit today, we recorded the following inf ormation about you: Kaylah Delgado RN 03/31/2022 11:03 PM Signed AMB ROOMING INTAKE FLOWSHEET DATA Risk Screening Do you have concerns about personal safety or safety i n the home?: No Patient presents with: Right Foot - Established Patient, Hammer Toe Left Foot - Established Patient, Hammer Toe Aracelis Aceves TREYVerónica 03/31/2022 11:03 PM Signed FOLLOW UP PODIATRIC OFFICE VISIT Chief Complaint: This 86 year old who presents for fol low up:callus of right 5th metatarsal and hammertoe of left 2nd toe Patient presents to clinic for follow-up evaluation of b/l feet. He has callus of right 5th metatarsal that remains sta ble without ulceration He also is here for hammertoe follow-up of left 2nd to e. He denies wounds to either of his feet. He is using hammertoe pad for the left 2nd toe which is helping. Patient has no other complaints. PAIN EVALUATION No data found in the last 1 encounters. Hemoglobin A1C Date Value Ref Range Status 08/12/2017 5.8 (H) 4.3 - 5.6 % Final Comment: [place] [employer] Association guidelines indicate that patients with HgbA1c in the range 5.7-6.4% are at increased risk for developme nt of diabetes, and intervention by lifestyle modification may be benefici al. HgbA1c greater or equal to 6.5% is considered diagnostic of diabetes. 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 (HCC) 04/04/2021 - Esophageal reflux - Hemorrhage of rectum and anus - History of prediabetes 08/05/2016 - Hyperlipidemia - Hypertrophy of prostate with urinary obstruction and other lower urinary tract symptoms (LUTS) 03/19/2006 - HYPERURICEMIA 09/29/2006 - Idiopathic peripheral neuropathy 03/28/2010 - Internal hemorrhoids without mention of complication - Interstitial lung disease ([facility]) 05/18/2017 - Mixed hyperlipidemia Hyperlipidemia - Occlusion and stenosis of carotid artery without men tion of cerebral infarction 07/08/2010 - OM (osteomyelitis) ([facility]) 04/03/2010 - Osteomyelitis of fifth toe of right foot ([facility]) 01/22 - PAC (premature atrial contraction) - 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 - Presence of cardiac pacemaker 09/22/2019 [email or web address] dual-chamber pacemaker system; indic ation: symptomatic bradycardia due to sinus nod e dysfunction; system will be MRI conditional after 6 weeks post implant - Psoriasis and similar disorders arthritis - PSORIATIC ARTHRITIS 09/29/2006 - PVC (premature ventricular contraction) - Sinus node dysfunction ([facility]) 09/22/2019 - Unspecified essential hypertension Essential hypertension - Unspecified hypothyroidism - Urethral stricture 04/04/2012 - Urinary retention 03/16/2013 - 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 - donepezil (ARICEPT) 10 mg tablet Take 1 tablet by mo uth daily at bedtime. - pravastatin (PRAVACHOL) 40 mg tablet Take 1 tablet b y mouth every morning. - finasteride (PROSCAR) 5 mg tablet Take 1 tablet by m outh once daily. - allopurinol (ZYLOPRIM) 300 mg tablet Take 1 tablet b y mouth once daily. - clopidogrel (PLAVIX) 75 mg tablet Take 1 tablet by m outh once daily. - memantine (NAMENDA) 10 mg tablet Take 1 tablet by mo uth once daily. - levothyroxine (SYNTHROID) 175 mcg tablet Take 1 tablet by mouth once daily. For Thyroid. - lisinopril (ZESTRIL, PRINIVIL) 10 mg tablet Take 1 t ablet by mouth once daily. - gabapentin (NEURONTIN) 300 mg capsule Take 1 capsule by mouth every evening. - tamsulosin (FLOMAX) 0.4 mg Take 1 capsule by mouth e very evening. - triamcinolone acetonide (KENALOG) 0.1 % ointment Apply to affected area once daily. - leflunomide (ARAVA) 10 mg tablet Take 10 mg by mouth once daily. - nitroglycerin sublingual (NITROQUICK) 0.4 mg SL tabl et Dissolve 1 tablet under the tongue as needed. FOR CHEST PAIN. IF NO RELI EF CALL 911 - ofloxacin (OCUFLOX) 0.3 % ophthalmic s olution Use 1 Drop in both eyes. Use 1 drop in both eyes one day prior to eye injection. - [place]-3 Fatty Acids (FISH OIL) 500 mg cap Take 1 capsule by mouth once daily. - beta-carotene(a) w-c AND e /zn/cu(OCUVITE PRESERVISION TAB) T (more content not included)... CNOV on 02-17-2022 CNOV Office Visit (PODIWS) [facility] NAVID CORTES ([id number]) 1935 M [place] Date Time Provider Department 02/17/22 2:15 PM ARACELIS ACEVES PODROWAN During your visit today, we recorded the following inf ormation about you: Aleida Moser MA 02/18/2022 12:24 PM Signed Patient presents with: Right Foot - Established Patient, hammer toes Aracleis Aceves DPM 02/17/2022 2:51 PM Signed Continue with wide new balance tennis shoes Continue with lotion to feet daily Wear hammertoe pad beneath the left 2nd toe Call if any issues arise Follow-up in 6 weeks Aracelis Aceves DPM 02/18/2022 12:24 PM Signed Follow up podiatric office visit for: Chief Complaint: This 86 year old who presents for fol low up:callus of right foot. Patient presents to clinic for follow-up callus of right foot. Patient denies any pain. Patient continues with wider shoes. He has n o other complaints. PAIN EVALUATION No data found in the last 1 encounters. Hemoglobin A1C Date Value Ref Range Status 08/12/2017 5.8 (H) 4.3 - 5.6 % Final Comment: [place] Diabetes Association guidelines indicate that patients with HgbA1c in the range 5.7-6.4% are at increased risk for developme nt of diabetes, and intervention by lifestyle modification may be benefici al. HgbA1c greater or equal to 6.5% is considered diagnostic of diabetes. 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 ([facility]) 04/04/2021 - Esophageal reflux - Hemorrhage of rectum and anus - History of prediabetes 08/05/2016 - Hyperlipidemia - Hypertrophy of prostate with urinary obstruction and other lower urinary tract symptoms (LUTS) 03/19/2006 - HYPERURICEMIA 09/29/2006 - Idiopathic peripheral neuropathy 03/28/2010 - Internal hemorrhoids without mention of complication - Interstitial lung disease ([facility]) 05/18/2017 - Mixed hyperlipidemia Hyperlipidemia - Occlusion and stenosis of carotid artery without men tion of cerebral infarction 07/08/2010 - OM (osteomyelitis) ([facility]) 04/03/2010 - Osteomyelitis of fifth toe of right foot ([facility]) 01/22 - PAC (premature atrial contraction) - 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 - Presence of cardiac pacemaker 09/22/2019 [employer] dual-chamber pacemaker system; indic ation: symptomatic bradycardia due to sinus nod e dysfunction; system will be MRI conditional after 6 weeks post implant - Psoriasis and similar disorders arthritis - PSORIATIC ARTHRITIS 09/29/2006 - PVC (premature ventricular contraction) - Sinus node dysfunction ([facility]) 09/22/2019 - Unspecified essential hypertension Essential hypertension - Unspecified hypothyroidism - Urethral stricture 04/04/2012 - Urinary retention 03/16/2013 - 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 - memantine (NAMENDA) 10 mg tablet Take 1 tablet by mo uth once daily. - levothyroxine (SYNTHROID) 175 mcg tablet Take 1 tablet by mouth once daily. For Thyroid. - lisinopril (ZESTRIL, PRINIVIL) 10 mg tablet Take 1 t ablet by mouth once daily. - gabapentin (NEURONTIN) 300 mg capsule Take 1 capsule by mouth every evening. - tamsulosin (FLOMAX) 0.4 mg Take 1 capsule by mouth e very evening. - pravastatin (PRAVACHOL) 40 mg tablet Take 1 tablet b y mouth every morning. - finasteride (PROSCAR) 5 mg tablet Take 1 tablet by m outh once daily. - allopurinol (ZYLOPRIM) 300 mg tablet Take 1 tablet b y mouth once daily. - donepezil (ARICEPT) 10 mg tablet Take 1 tablet by mo uth every evening. - triamcinolone acetonide (KENALOG) 0.1 % ointment Apply to affected area once daily. - leflunomide (ARAVA) 10 mg tablet Take 10 mg by mouth once daily. - nitroglycerin sublingual (NITROQUICK) 0.4 mg SL tabl et Dissolve 1 tablet under the tongue as needed. FOR CHEST PAIN. IF NO RELI EF CALL 911 - ofloxacin (OCUFLOX) 0.3 % ophthalmic s olution Use 1 Drop in both eyes. Use 1 drop in both eyes one day prior to eye injection. - [place]-3 Fatty Acids (FISH OIL) 500 mg cap Take 1 capsule by mouth once daily. - beta-carotene(a) w-c AND e /zn/cu(OCUVITE PRESERVISION TAB) Take one(1) tablet daily. - CLARITIN 10 MG ORAL TAB Take one(1) tablet daily. - ASPIRIN 81MG TABLET Take one (1) tablet daily . - MULTIVITAMIN TABLET Take one(1) tablet daily. No current facility-administ ered medications for this v (more content not included)... [facility] NAVID CORTES ([id number]) 1935 M [place] Date Time Provider Department 02/17/22 JASON SNIDER During your visit today, we recorded the following inf ormation about you: Suzy Morales NATIONAL ACCOUNT EXECUTIVE 02/17/2022 1:25 PM Signed rec'd fax from [employer] requested MR. Brown has bee n sent to [facility] MR dept Allergies As of Date: 02/17/2022 Noted Allergy Reactio n BACTRIM (SULFAMETHOXAZOLE-TRIMETH*05/02/2007 2 - Rash 4 - Hives 14 - Other: See Comments Comments: Elevated bilirubin CATS 07/21/2006 Gold Shots [Other] 08/22/2003 HYOSCYAMINE 08/23/2003 16 - Unknown METRONIDAZOLE 08/23/2003 16 - Unknown SESAME SEED 08/11/2005 SULFA (SULFONAMIDE ANTIBIOTICS) 03/02/2019 2 - Rash 4 - Hives TREE NUT 03/02/2019 14 - Other: See Comments TREE NUTS [Other] 08/11/2005 Comments: ANY NUT THAT GROWS ON TREES TRIMETHOPRIM 03/02/2019 2 - Rash 4 - Hives Date Reviewed: 02/17/2022 Reviewed by: Aleida Moser MA - Fully Assessed Reason for Visit: Release Of Medical Records [2017] Prescriptions as of 02/17/2022 - clopidogrel (PLAVIX) 75 mg tablet Take 1 tablet by mouth once daily. - memantine (NAMENDA) 10 mg tablet Take 1 tablet by mouth once daily. - levothyroxine (SYNTHROID) 175 mcg tablet Take 1 tablet by mouth once daily. For Thyroid. - lisinopril (ZESTRIL, PRINIVIL) 10 mg tablet Take 1 tablet by mouth once daily. - gabapentin (NEURONTIN) 300 mg capsule Take 1 capsule by mouth every evening. - tamsulosin (FLOMAX) 0.4 mg Take 1 capsule by mouth every evening. - pravastatin (PRAVACHOL) 40 mg tablet Take 1 tablet by mouth every morning. - finasteride (PROSCAR) 5 mg tablet Take 1 tablet by mouth once daily. - allopurinol (ZYLOPRIM) 300 mg tablet Take 1 tablet by mouth once daily. - donepezil (ARICEPT) 10 mg tablet Take 1 tablet by mouth every evening. - triamcinolone acetonide (KENALOG) 0.1 % ointment Apply to affected area once daily. - leflunomide (ARAVA) 10 mg tablet Take 10 mg by mouth once daily. - nitroglycerin sublingual (NITROQUICK) 0.4 mg SL tabl et Dissolve 1 tablet under the tongue as needed. FOR CHES T PAIN. IF NO RELIEF CALL 911 - ofloxacin (OCUFLOX) 0.3 % ophthalmic solution Use 1 Drop in both eyes. Use 1 drop in both eyes one d ay prior to eye injection. - [place]-3 Fatty Acids (FISH OIL) 500 mg cap Take 1 capsule by mouth once daily. - beta-carotene(a) w-c AND e/zn/cu(OCUVITE PRESERVISIO N TAB) Take one(1) tablet daily. - CLARITIN 10 MG ORAL TAB Take one(1) tablet daily. - ASPIRIN 81MG TABLET Take one (1) tablet daily . - MULTIVITAMIN TABLET Take one(1) tablet daily. Problem List As Of Date 02/17/2022 Noted Resolved Retention of urine, unspecified [R33.9] 03/19/2006 Bladder neck obstruction [N32.0] 03/19/2006 08/05/2016 BPH with obstruction/lower urinary tract sympto*2005 HYDRONEPHROSIS [N13.30] 03/19/2006 05/24/2006 HYPERLIPIDEMIA [E78.5] 07/21/2006 03/17/2016 Atherosclerosis of coronary artery bypass graft*200506/22/2020 ANEMIA NORMOCYTIC [D64.9] 07/21/2006 06/22/2020 ABNORMAL GLUCOSE [R73.09] 07/21/2006 08/12/2015 Hyperuricemia [E79.0] 09/29/2006 Hypothyroidism [E03.9] 09/29/2006 PSORIATIC ARTHRITIS [L40.50] 09/29/2006 08/17/2017 Other hammer toe (acquired) [M20.40] 06/22/20072016 Hallux valgus (acquired) [M20.10] 06/22/2007 6 Other atopic dermatitis and related conditions *200608/12/2015 Unspecified pruritic disorder [L29.9] 07/05/200703/17 ECZEMATOUS DERMATITIS NOS [L25.9] 07/05/2007 6 Other psoriasis [L40.8] 07/05/2007 06/19/2020 XEROSIS///SEBACEOUS GLAND DIS NEC [L73.8] 07/05/2007 0 03/18/2015 SOLAR LENTIGINES///DYSCHROMIA OTHER [L81.9] 07/05/2007 08/12/2015 Other seborrheic keratosis [L82.1] 07/05/2007 03/18/20 15 ACTINIC DAMAGE///CHR SOLAR SKIN DAMAGE NOS [L57*200608/12/2015 Dyshidrosis [L30.1] 11/07/2007 08/05/2016 Hemorrhage of rectum and anus [K62.5] 08/05/2016 Benign neoplasm of skin of lower limb, includin*200708/05/2016 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] 03/28/2010 010 Idiopathic peripheral neuropathy [G60.9] 03/28/2010 DM Neuro Manif Type II [E11.49] 03/28/2010 06/10/2010 OM (osteomyelitis) (HCC) [M86.9] 04/03/2010 08/05/2016 Closed fracture of metatarsal bone(s) [S92.309A]200908/05/2016 Abnormality of gait [R26.9] 05/14/2010 08/05/2016 Capillary angioma [I78.1] 06/01/2010 03/17/2016 Actinic Keratosis (Premalignant AK) [L57.0] 06/01/2010 01/17/2020 Occlusion and stenosis of carotid artery withou*200908/05/2016 Urethral stricture [N35.919] 04/04/2012 08/05/2016 Impotence [N52.9] 04/04/2012 06/22/2020 Urinary retention [R33.9] 03/16/2013 08/05/2016 Nocturia [R35.1] 03/16/2013 BPH (benign prostatic hyperplasia) [N40.0] 03/16/2013 08/05/2016 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 CNOV on 01-16-2022 CNOV Office Visit (INTMWS) [facility] NAVID CORTES ([id number]) 1935 M [place] Date Time Provider Department 01/16/22 4:40 PM JASON SNIDER INTMWS During your visit today, we recorded the following inf ormation about you: Blood pressure 140/66 Jason Snider MD 01/18/2022 2:21 PM Signed This note was created using [employer]. Subjective Navid Cortes is a 86 year old male her e with his daughter. He slipped on ice recently with no major injury. 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 Daughter reported he still passed his vision exam for driving and patient still felt safe driving to familiar places. Home health aid hours have increased, and he had some home care 6 days per week. This improved medication adherence and nutrition al quality. He still went for meals at a [facility] when home health was not available, as he forgets to eat or preferred not to make meals on his o wn. She has forwarded calls to her voicemail box so a lot of telemarketing a nd scam calls are avoided. Home care providers have reported alternating diarrhea and constipation, but patient is independent with hygiene and there was no evidence of incontinence. Review of Systems Constitutional: Negative. Respiratory: Negative. Cardiovascular: Negative. Gastrointestinal: Negative for abdominal pain, nausea and vomiting. See HPI. Patient was not concerned. Genitourinary: Negative. Musculoskeletal: Negative. Psychiatric/Behavioral: Negative. 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 For Thyroid. - lisinopril (ZESTRIL, PRINIVIL) 10 mg tablet Take 1 t ablet by mouth once daily. - gabapentin (NEURONTIN) 300 mg capsule Take 1 capsule by mouth every evening. - tamsulosin (FLOMAX) 0.4 mg Take 1 capsule by mouth e very evening. - pravastatin (PRAVACHOL) 40 mg tablet Take 1 tablet b y mouth every morning. - finasteride (PROSCAR) 5 mg tablet Take 1 tablet by m outh once daily. - allopurinol (ZYLOPRIM) 300 mg tablet Take 1 tablet b y mouth once daily. - donepezil (ARICEPT) 10 mg tablet Take 1 tablet by mo uth every evening. - triamcinolone acetonide (KENALOG) 0.1 % ointment Apply to affected area once daily. - clopidogrel (PLAVIX) 75 mg tablet Take 1 tablet by m outh once daily. - leflunomide (ARAVA) 10 mg tablet Take 10 mg by mouth once daily. - nitroglycerin sublingual (NITROQUICK) 0.4 mg SL tabl et Dissolve 1 tablet under the tongue as needed. FOR CHEST PAIN. IF NO RELI EF CALL 911 - ofloxacin (OCUFLOX) 0.3 % ophthalmic s olution Use 1 Drop in both eyes. Use 1 drop in both eyes one day prior to eye injection. - [place]-3 Fatty Acids (FISH OIL) 500 mg cap Take 1 capsule by mouth once daily. - Polyethylene Glycol 3350 (MIRALAX) 17 gram/dose powd er Take 17 g by mouth once daily as needed. - beta-carotene(a) w-c AND e /zn/cu(OCUVITE PRESERVISION TAB) Take one(1) tablet daily. - CLARITIN 10 MG ORAL TAB Take one(1) tablet daily. - ASPIRIN 81MG TABLET Take one (1) tablet daily . - MULTIVITAMIN TABLET Take one(1) tablet daily. No current facility-administered medications for this visit. Objective BP (P) 164/86 (BP Site: Left Arm, BP Position: Sitting , BP Cuff Size: Large Adult) Pulse (P) 72 Temp (P) 36.3 ?C (97.3 ?F) (Te mporal) Resp (P) 16 Wt (P) 78.5 kg (173 lb) BMI (P) 24.82 kg/m? Physical Exam Constitutional: Appearance: He is not ill-appearing. Comments: Grooming normal. Cardiovascular: Rate and Rhythm: Normal rate and regular rhythm. Pulmonary: Effort: Pulmonary effort is normal. Breath sounds: Normal breath sounds. Abdominal: General: Bowel sounds are normal. There is no distensi on. Palpations: Abdomen is soft. There is no mass. Tenderness: There is no abdominal tenderness. Musculoskeletal: Right lower leg: No edema. Left lower leg: No edema. Neurological: General: No focal deficit present. Mental Status: He is alert. Psychiatric: Attention and Perception: Attention normal. Mood and Affect: Affect is flat. Speech: Speech normal. BP 140/66 (BP Site: Right Arm, BP Position: Sitting) Component Latest Ref Rng AND Unit (more content not in cluded)... Basic Metabolic Panl on 01-09-2022 Anion gap [Moles/Vol] 7 mmol/L Low -18 [facility] Calcium [Mass/Vol] 9.4 mg/dL Normal 8.5-10.2 [facility] Chloride [Moles/Vol] 104 mmol/L Normal 97-105 [facility] CO2 [Moles/Vol] 31 mmol/L High 22-30 [facility] [facility] [place] Creatinine [Mass/Vol] 1.27 mg/dL High 0.73-1.22 [facility] eGFR- Amer. >60 Normal [facility] eGFR-All Other Races 54 . Normal [facility] Comment on above: Result Comment: eGFR (Estima long GFR) Units of measure: mL/min/1.73 meters squared eGFR is derived from the ree xpressed MDRD Study equation using the following parameters: serum creatinine, age, gender and race. The creatinine assay has been calibrated to be traceable to IDMS. An eGFR <60 mL/min/1.73m2 fo r >3 months is consistent with chronic kidney disease. Refer to KDOQI guidelines for clinical interpretation. In patients with unstable re nal function, e.g. those with acute kidney injury, the eGFR may not accurately reflect actual GFR. Note: On 01/17/2022, the eGF R calculation will be updated to the NKF-ASN Task Force recommended 2020 CKD-EPI creatinine equation which does not include a race variable. For more information or to access a 2020 CKD-EPI calculator, visit the National Kidney Foundation website at kidney.org/professionals/kdoqi/gfr_calculator. Glucose [Mass/Vol] 72 mg/dL Low 74-99 [facility] Comment on above: Result Comment: The [place] Diabetes Association (ADA) provides guidance for cutoff values for fasting glucose and random glucose. The ADA defines fasting as no caloric intake for at least 8 hours. Fas ting plasma glucose results between 100 to 125 mg/dL indicate increased risk for diabetes (prediabetes). Fasting plasma glucose resul ts greater than or equal to 126 mg/dL meet the criteria for diagnosis of diabetes. In the absence of unequivocal hyperglycemia, results should be confirmed by repeat testing. In a patient with classic s ymptoms of hyperglycemia or hyperglycemic crisis, random plasma glucose results greater than or equal to 200 mg/dL meet the criteria for diagnosis of diabetes. Reference: Standards of [facility] Care in Diabetes 2016, [place] Diabetes Association. Diabetes Care. 2016.39(Suppl 1). Potassium [Moles/Vol] 4.3 mmol/L Normal 3.7-5.1 [facility] Sodium [Moles/Vol] 142 mmol/L Normal 136-144 [facility] Urea nitrogen [Mass/Vol] 16 mg/dL Normal 9-24 [facility] CBC on 01-09-2022 Absolute nRBC <0.01 Normal <0.01 [facility] Erythrocyte distribution 13.5 % Normal 11.5-15.0 [facility] width (RBC) [Ratio] Clevelporfirio d Hematocrit (Bld) [Volume 38.9 % Low 39.0-51.0 [facility] fraction] [place] Hemoglobin (Bld) [Mass/Vol] 12.6 g/dL Low 13.0-17.0 [facility] MCH 30.7 pG Normal 26.0-34.0 [facility] MCHC (RBC) [Mass/Vol] 32.4 g/dL Normal 30.5-36.0 [facility] MCV (RBC) [Entitic vol] 94.9 fL Normal 80.0-100.0 [facility] Platelet mean volume (Bld) 9.6 fL Normal 9.0-12.7 [facility] [Entitic vol] [place] Platelets (Bld) [#/Vol] 170 10*3/uL Normal 150-400 [facility] RBC (Bld) [#/Vol] 4.10 10*6/uL Low 4.20-6.00 [facility] WBC (Bld) [#/Vol] 5.82 10*3/uL Normal 3.70-11.00 [facility] TSH on 01-09-2022 TSH Qn 5.780 m[IU]/L High 0.270-4.200 [facility] Comment on above: Performed By: #### TSH ####[facility] [id number] [place], [place] [phone] Basic Panel on 09-23-2019 Creatinine [Mass/Vol] 1.11 mg/dL Normal 0.67-1.17 [facility] Comment on above: Performed By: #### P8 #### [facility] [address] [place], [place] [address] Anion gap [Moles/Vol] 8 mmol/L Normal 8-16 [facility] Comment on above: Performed By: #### P8 #### [facility] [address] [place], [place] [address] CO2 [Moles/Vol] 27 mmol/L Normal 21-32 [facility] Comment on above: Performed By: #### P8 #### [facility] [address] [place], [place] [address] Urea nitrogen [Mass/Vol] 23 mg/dL High 7-18 [facility] Comment on above: Performed By: #### P8 #### [facility] [address] [place], [place] [address] Calcium [Mass/Vol] 9.5 mg/dL Normal 8.5-10.1 [facility] Comment on above: Performed By: #### P8 #### [facility] [address] [place], [place] [address] Glucose [Mass/Vol] 105 mg/dL High 70-99 [facility] Comment on above: Performed By: #### P8 #### [facility] [address] [place], [place] [address] Chloride [Moles/Vol] 107 mmol/L Normal 98-[address] [facility] Comment on above: Performed By: #### P8 #### [facility] [address] [place], [place] [address] Potassium [Moles/Vol] 4.3 mmol/L Normal 3.5-5.1 [facility] Comment on above: Performed By: #### P8 #### [facility] [address] [place], [place] [address] Sodium [Moles/Vol] 138 mmol/L Normal 136-145 [facility] Comment on above: Performed By: #### P8 #### [facility] [address] [place], [place] [address] CNPN on 09-23-2019 CNPN Telephone (AKPRAD) Normal [place] NAVID Ward ([id number]) 1935 M Medical Date Time Provider Department Center 09/23/19 HOLLAND ORDONEZ During your visit today, we recorded the following inf ormation about you: Holland Ordonez MD 09/23/2019 12:44 PM Signed I discharged Mr. Cortes today after his p acemaker implant. As I suspected, they would prefer to have the wound check and pacemak er follow up with the [facility] with Dr. Taty mcnamara. Can someone contact the [facility] and Dr. Tran's office to let them know and they c an then make arrangements? Also, the [facility] will need transf erred and so forth. He will need to see Fela in the [facility] in 7 - 10 days for wound check. Perhaps Irais Puente could contact Fela and let h er know. Thanks everyone Holland Ordonez MD September 23, 2019 12:43 PM Traci Flores 09/25/2019 10:43 AM Signed Spoke with Madeleine at Dr. Tran's off ice. Relayed message that pt wishes to follow up there for wound check and also faxed discharge summary to office per request. Traci Flores Allergies As of Date: 09/23/2019 Noted Allergy Reactio n BACTRIM (SULFAMETHOXAZOLE-TRIMETH*05/02/2007 2 - Rash 4 - Hives 14 - Other: See Comments Comments: Elevated bilirubin CATS 07/21/2006 Gold Shots [Other] 08/22/2003 HYOSCYAMINE 08/23/2003 16 - Unknown METRONIDAZOLE 08/23/2003 16 - Unknown SESAME SEED 08/11/2005 SULFA (SULFONAMIDE ANTIBIOTICS) 03/02/2019 2 - Rash 4 - Hives TREE NUT 03/02/2019 14 - Other: See Comments TREE NUTS [Other] 08/11/2005 Comments: ANY NUT THAT GROWS ON TREES TRIMETHOPRIM 03/02/2019 2 - Rash 4 - Hives Date Reviewed: 09/22/2019 Reviewed by: Amie Sharp) YOANA Bergman - Fully Assessed Reason for Visit: Treatment Planning [881] Prescriptions as of 09/23/2019 Sig: NITROGLYCERIN 0.4 MG SUBLINGU* Dissolve 1 tablet under the t* OFLOXACIN 0.3 % EYE DROPS INSTILL 1 DROP IN THE RIGHT E* LISINOPRIL 10 MG TABLET Take 1 tablet by mouth once d* METHOTREXATE SODIUM 2.5 MG TA* TAKE 3 TABLETS ONCE A [facility] FAMOTIDINE 20 MG TABLET Take 1 tablet by mouth twice * LEVOTHYROXINE 150 MCG TABLET Take 1 tablet daily * ALLOPURINOL 300 MG TABLET Take 1 tablet by mouth once d* FINASTERIDE 5 MG TABLET Take 1 tablet by mouth once d* GABAPENTIN 300 MG CAPSULE Take 1 capsule by mouth cary y* PRAVASTATIN 40 MG TABLET Take 1 tablet by mouth daily * TAMSULOSIN 0.4 MG CAPSULE Take 1 capsule by mouth cary y* DONEPEZIL 10 MG TABLET Take 1 tablet by mouth daily * CLOPIDOGREL 75 MG TABLET Take 1 tablet by mouth once d * OMEGA-3 FATTY ACIDS 500 MG CA* Take 1 capsule by mouth once * FLUTICASONE PROPIONATE 50 MCG* Use 2 Sprays in each no stril * Patient taking differently: Use 2 Sprays in each nostr il * * POLYETHYLENE GLYCOL 3350 17 G* Take 17 g by mouth on ce daily* * PRESERVISION AREDS 7,160 UNIT* Take one(1) tablet da magi. * CLARITIN 10 MG TABLET Take one(1) tablet daily. * ASPIRIN 81 MG TABLET Take one (1) tablet daily . * MULTIVITAMIN TABLET Take one(1) tablet daily. Problem List As Of Date 09/23/2019 Noted Resolved Retention of urine, unspecified [R33.9] INVALID FOR* Bladder neck obstruction [N32.0] INVALID FOR* 6 BPH with obstruction/lower urinary tract sympto*INVALI D FOR* HYDRONEPHROSIS [N13.30] INVALID FOR*05/24/2006 Essential (primary) hypertension [I10] INVALID FOR* HYPERLIPIDEMIA [E78.5] INVALID FOR*03/17/2016 Atherosclerosis of coronary artery bypass graft*INVALI D FOR* ANEMIA NORMOCYTIC [D64.9] INVALID FOR* ABNORMAL GLUCOSE [R73.09] INVALID FOR*08/12/2015 Hyperuricemia [E79.0] INVALID FOR* Hypothyroidism [E03.9] INVALID FOR* PSORIATIC ARTHRITIS [L40.50] INVALID FOR*08/17/2017 Other hammer toe (acquired) [M20.40] INVALID FOR*08/17 Hallux valgus (acquired) [M20.10] INVALID FOR*03/17/20 16 Other atopic dermatitis and related conditions *INVALI D FOR*08/12/2015 Unspecified pruritic disorder [L29.9] INVALID FOR*02/21 ECZEMATOUS DERMATITIS NOS [L25.9] INVALID FOR*08/05/20 16 Other psoriasis [L40.8] INVALID FOR* XEROSIS///SEBACEOUS GLAND DIS NEC [L73.8] INVALID FOR* 03/18/2015 SOLAR LENTIGINES///DYSCHROMIA OTHER [L81.9] INVALID FO R*08/12/2015 Other seborrheic keratosis [L82.1] INVALID FOR* 015 ACTINIC DAMAGE///CHR SOLAR SKIN DAMAGE NOS [L57*INVALI D FOR*08/12/2015 Dyshidrosis [L30.1] INVALID FOR*08/05/2016 Hemorrhage of rectum and anus [K62.5] 08/05/2016 Benign neoplasm of skin of lower limb, includin*INVALI D FOR*08/05/2016 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] INVALID FOR*2009 Idiopathic peripheral neuropathy [G60.9] INVALID FOR* DM Neuro Manif Type II [E11.49] INVALID FOR*06/10/2010 OM (osteomyelitis) (HCC) [M86.9] INVALID FOR* 6 Closed fracture of metatarsal bone(s) [S92.309A]INVALI D FOR*08/05/2016 Abnormality of gait [R26.9] INVALID FOR*08/05/2016 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 Bradycardia [R00.1] INVALID FOR* Atherosclerosis of [place] coronary artery of na*INVALI D FOR* Chronic obstructive pulmonary disease with (acu*INVALI D FOR* Dizziness and giddiness [R42] INVALID FOR* Fatigue [R53.83] INVALID FOR* Gout [M10.9] INVALID FOR* Vasculitis (HCC) [I77.6] INVALID FOR* Presence of cardiac pacemaker [Z95.0] INVALID FOR* More... Sinus node dysfunction (HCC) [I49.5] INVALID FOR* Encounter Status:Closed by HOLLAND ORDONEZ MD on ECG COMPLETE on 09-23-2019 ECG COMPLETE NAME : NAVID CORTES [facility] PID : [id number] Center : 1935 Gender : Male Race : ORD : [id number] Procedure Date : Sep 23 2019 05:24:07 Edit Date : Sep 25 2019 09:07:38 Diagnosis:Atrial-paced rhyth m with prolonged AV conduction WITH OCCASIONAL PREMATURE VENTRICULAR COMPLEXES INAPPROPRIATE PACING, SUSPECT PACEMAKER DYSFUNCTION ABNORMAL ECG NO PREVIOUS ECGS AVAILABLE Confirmed by MD CAGE VINAYAK ([id number]) on 09/25/2019 9 :07:33 AM Ventricular Rate : 68 BPM Atrial Rate : 53 BPM P-R Interval : 252 ms QRS Duration : 106 ms Q-T Interval : 410 ms QTC Calculation(Bazett) : 435 ms R [place] : 43 degrees T [place] : 52 degrees Test Reason : Arrhythmia Location : 103 : AK[place] ROU Overread By : MD CAGE VINAYAK Edited By : MD CAGE VINAYAK Referred By : HOLLAND ORDONEZ Acquired by : PATRICE PERAAZ Hemogram on 09-23-2019 Erythrocyte distribution width 12.7 % Normal 11.6-14.4 [facility] (RBC) [Ratio] Comment on above: Performed By: #### CBC1 #### [facility] [address] [place], [place] [address] Hematocrit (Bld) [Volume 40.2 % Normal 40.1-51.0 [facility] fraction] Comment on above: Performed By: #### CBC1 #### [facility] [address] [place], [place] [address] Hemoglobin (Bld) [Mass/Vol] 13.0 g/dL Low 13.7-17.5 [facility] Comment on above: Performed By: #### CBC1 #### [facility] [address] [place] [address] MCH (RBC) [Entitic mass] 31.4 pg Normal 25.7-32.2 [facility] Comment on above: Performed By: #### CBC1 #### [facility] [address] [place] [address] MCHC (RBC) [Mass/Vol] 32.3 % Normal 32.3-36.5 [facility] Comment on above: Performed By: #### CBC1 #### [facility] [address] [place] [address] MCV (RBC) [Entitic vol] 97.1 fL High 83.2-95.[address] [facility] Comment on above: Performed By: #### CBC1 #### [facility] [address] [place] [address] Platelet mean volume (Bld) 9.7 fL Normal 8.7-12.0 [facility] [Entitic vol] Comment on above: Performed By: #### CBC1 #### [facility] [address] [place], [place] [address] Platelets (Bld) [#/Vol] 194 thou/cmm Normal 141-[address] [facility] Comment on above: Performed By: #### CBC1 #### [facility] [address] [place], [place] [address] RBC (Bld) [#/Vol] 4.14 mil/cmm Low 4.63-6.08 [facility] Comment on above: Performed By: #### CBC1 #### [facility] [address] [place], [place] [address] RDW SD 45.2 fl Normal 36.1-45.8 [facility] Comment on above: Performed By: #### CBC1 #### [facility] [address] [place], [place] [address] WBC (Bld) [#/Vol] 8.83 thou/cmm Normal 4.23-9.07 [facility] Comment on above: Performed By: #### CBC1 #### [facility] [address] [place], [place] [address] MDRD GFR on 09-23-2019 GFR/1.73 sq M predicted mL/min/{1.73_m2} Normal >60mL/min/1.7 3m2 [facility] among non-blacks MDRD System (S/P/Bld) [Vol rate/Area] Comment on above: Result Comment: If the patie nt is , multiply the result by 1.210. Performed By: #### GFR #### [facility] [address] [place], [place] [address] XR CHEST 2V FRONTAL/LAT on 09-23-2019 XR CHEST 2V FRONTAL/LAT * * *Final Report* * * Normal [facility] DATE OF EXAM: Sep 23 2019 9:47AM System AKX [id number] - XR CHEST 2V FRONTAL/LAT / [id number] PROCEDURE REASON: Pneumothorax * * * * Physician Interpretation * * * * EXAMINATION: CHEST RADIOGRAPH (2 VIEW FRONTAL & LATERA L) CLINICAL HISTORY: Pneumothorax, Post-operative / post- procedure assessment, asymptomatic. The patient is status post p lacement of new cardiac pacemaker. MQ: XC2_5 Comparison: April 27, 2017 and August 26, 2015 RESULT: Lines, tubes, and devices: A new cardiac pacemaker is identified over the left chest wall. Its 2 leads are intact with one c oiled in the right atrium and the other in the expected position of the a pex of the right ventricle. Sternal wires and mediastinal clips are pre sent. EKG leads overlie the chest. Lungs and pleura: There is no pneumothorax. There is s ome peripheral interstitial coarsening is stable and unchanged from t he previous exam. No consolidation. No lung mass. No pleural effusion. Cardiomediastinal silhouette: Normal cardiomediastinal silhouette. Other: No other abnormality is identified. IMPRESSION: There is no evidence of pneumothorax following new anna cement of cardiac pacemaker device. There continues to be chronic inters titial lung disease which is stable and unchanged from April 27. Predictive Maintenance Technician: NELSON Transcribe Date/Time: Sep 23 2019 9:53A Dictated by : PAUL SHUKLA MD This examination was interpreted and the report review ed and electronically signed by: PAUL SHUKLA MD on Sep 23 2019 9:55AM EST ANES POST on 09-22-2019 ANES POST HNO ID: [id number] Normal [facility] Author: Asia Champion Service: Anesthesiology Author Type: Anesthesiologist Type: Anesthesia PostOp Filed: 09/22/2019 2:08 PM Note Text: POST ANESTHESIA EVALUATION NOTE SERVICE DATE: 09/22/2019 SERVICE TIME: 2:08 PM : 1935 Vitals: 09/22/19 0823 09/22/19 1215 Temp: 36.4 ?C (97.5 ?F) 36.4 ?C (97.5 ?F) 09/22/19 1235 09/22/19 1301 09/22/19 1315 09/22/19 1326 BP: 188/88 198/82 189/82 188/77 09/22/19 1235 09/22/19 1301 09/22/19 1315 09/22/19 1326 Pulse: 60 (!) 58 61 (!) 59 09/22/19 1235 09/22/19 1301 09/22/19 1315 09/22/19 1326 Resp: 16 16 16 15 09/22/19 1235 09/22/19 1301 09/22/19 1315 09/22/19 1326 SpO2: 96% 98% 98% 98% Validated Vital Signs: Yes POST ANES STATUS: No apparent anesthetic complications . The patient is appropriately hydrated with stable respiratory and car diovascular status. Patient has safe and adequate airway control. The maribel ent has appropriate pain relief and no significant post operative nausea o r vomiting. The patient has achieved baseline mental status. Intra-Operative Events: No Significant Anesthesia Even ts Further assessment by Anesthesia Service: None Other Remarks: SIGNATURE: Asia Champion MD PATIENT NAME: Navid Cortes DATE: September 22, 2019 TIME: 2:08 PM PAGER/CONTACT #: [phone] ANES PREOP on 09-22-2019 ANES PREOP HNO ID: [id number] Normal [place] [facility] Author: Asia Drake enter Service: Anesthesiology Author Type: Anesthesiologist Type: Anesthesia PreOp Filed: 09/22/2019 9:39 AM Note Text: ANESTHESIOLOGY DAY OF SURGERY NOTE SERVICE DATE: 09/22/2019 SERVICE TIME: 9:39 AM : 1935 Procedure(s) (LRB): (NEW IMPLANT DUAL CHAMBER PPM) INSERTION OF A NEW PERM ANENT PACEMAKER W/ INSERTION OF NEW TRANSVENOUS ELECTRODE(S) ATRIAL AND V ENTRICULAR (Left) Surgeon(s): Holland Ordonez Estimated body mass index is 23.84 kg/m? as calculated from the following: Height as of 08/25/19: 182.9 cm (6'). Weight as of 08/25/19: 79.7 kg (175 lb 12.8 oz). Most recent hematocrit and potassium results: Hematocrit 40.9 07/11/2019 Potassium 4.5 07/11/2019 ANES DOS/PREOP NOTE: Vitals: 09/22/19 0823 BP: 164/67 Pulse: (!) 59 Resp: 15 Temp: 36.4 ?C (97.5 ?F) SpO2: 97% Weight: 78.7 kg (173 lb 9.6 oz) Height: 182.9 cm (6') ACTIVE PROBLEM LIST Bph With Obstruction/Lower Urinary Tract Symptoms Essential (Primary) Hypertension Atherosclerosis of Coronary Artery Bypass Graft ANEMIA NORMOCYTIC Hyperuricemia Hypothyroidism Other Psoriasis Idiopathic Peripheral Neuropathy Actinic Keratosis (Premalignant AK) Impotence Nocturia Anal Stenosis Senile Cataract Mild Cognitive Disorder History of Prediabetes Chronic kidney disease, stage 3 (moderate) (HCC) Carotid Stenosis, Asymptomatic Polyarticular Psoriatic Arthritis (Hcc) Abnormal Anca Test Secondary Osteoarthritis of Multiple Sites Long-Term Use of High-Risk Medication Interstitial Lung Disease (Hcc) Bradycardia Atherosclerosis of [place] Coronary Artery of [place] He art Without Angina Pectoris Chronic Obstructive Pulmonary Disease With (Acute) Exa cerbation (Hcc) Dizziness and Giddiness Fatigue Gout Vasculitis ([facility]) PAST MEDICAL HISTORY Diagnosis Date - Anal stenosis 04/05/2013 - ANEMIA NORMOCYTIC 07/21/2006 - CAD (coronary artery disease) two-vessel CABG 1996 ([facility]); PCI/stent LCX 2010 - CKD (chronic kidney disease) stage 3, GFR 30-59 ml/m in ([facility]) 08/11/2016 - Closed fracture of metatarsal bone(s) 05/14/2010 - Esophageal reflux - Hemorrhage of gastrointestinal tract, unspecified - Hemorrhage of rectum and anus - History of prediabetes 08/05/2016 - Hyperlipidemia - Hypertrophy of prostate with urinary obstruction and other lower urinary tract symptoms (LUTS) 03/19/2006 - HYPERURICEMIA 09/29/2006 - Idiopathic peripheral neuropathy 03/28/2010 - Internal hemorrhoids without mention of complication - Interstitial lung disease ([facility]) 05/18/2017 - Mild cognitive disorder 08/12/2015 - Mixed hyperlipidemia Hyperlipidemia - Occlusion and stenosis of carotid artery without men tion of cerebral infarction 07/08/2010 - OM (osteomyelitis) ([facility]) 04/03/2010 - PAC (premature atrial contraction) - Psoriasis and similar disorders arthritis - PSORIATIC ARTHRITIS 09/29/2006 - PVC (premature ventricular contraction) - Unspecified essential hypertension Essential hypertension - Unspecified hypothyroidism - Urethral stricture 04/04/2012 - Urinary retention 03/16/2013 PAST SURGICAL HISTORY Procedure Laterality Date - AMPUTATE TOE; IP JOINT 2009 Rt foot 4th toe - BUNIONECTOMY, LAPIDUS-TYPE Right 2010 Right foot - CARDIAC CATH 01/28/2011 normal LV systolic fxn; normal LM, occluded LAD; LCX 5 0% ostial, mid 80%; left PDA 50% prox; RCA small nondominant with 70% osti al stenosis; SVG-PDA occluded; VIZCARRA Y graft to LAD and diagonal branch canela nt; - CAROTID SURGERY Left 1997 CAROTID-[place]-- left - CAROTID SURGERY Right 05/04/2014 RIGHT CAROTID - CATARACT EXTRACTION HX Bilateral 2015 - COLONOSCOP W/ OR W/O BRSH SPEC 08/10/2014 - CORONARY ARTERY BYPASS GRAFT 06/06/1997 CABG 2 vessel: VIZCARRA Y graft to LAD and diagonal branch ; [facility], Dr. Valenzuela - ECHOCARDIOGRAM 02/18/2018 normal LV systolic fxn; LVEF 60%; mild pHTN; no signif icant valvular abnormalities - HEMORRHOIDECTOMY 1962 - HOLTER 24 HR 07/14/2019 sinus rhythm, sinus bradycardia; min HR 33 bpm; max HR 98 bpm; avg HR 49 bpm - INSERT INTRACORONARY STENT 2010 PCI/stent to LCX - LASER GREENLIGHT PVP 2013 Prostate - LEXISCAN STRESS TEST - PAST SURGICAL HISTORY OF Right 2003 RIGHT LEG FRACTURE WITH RODS - PHARMACOLOGIC NUCLEAR STRESS 02/18/2018 no ischemia or scar - SD ANESTH,OPEN HEART; W/O PUMP OXYEGENATOR 1996 triple bypass - REMOVAL OF TONSILS,<12 Y/O 1941 Tonsillectomy - SIGMOIDOSCOPY FLEX DIAG 06/19/08 - TOTAL KNEE REPLACEMENT Right 05/02/2012 Knee replacement, total Right [facility]. Gent[facility] - TRANSURETHRAL ELEC-SURG PROSTATECTOM 2005 TURP - VASECTOMY 1971 FAMILY HISTORY Problem Relation Age of Onset - No Known Problems Mother from sepsis - Heart Father [place] - Diabetes Father - Heart Attack Father - other (ankylosing spondylosis) Sister Social History: Social History Tobacco Use - Smoking status: Never Smoker - Smokeless tobacco: Never Used Substance Use Topics - Alcohol use: No - Drug use: No No current facility-administered medications on file p rior to encounter. Current Outpatient Medications on File Prior to Encoun ter: lisinopril (ZESTRIL, PRINIVIL) 10 mg tablet Take 1 tab let by mouth once daily. famotidine (PEPCID) 20 mg tablet Take 1 tablet by mout h twice daily. levothyroxine (SYNTHROID) 150 mcg tablet Take 1 tablet daily Wednesday through Wednesday and take 1/2 tablet on Wednesday. finasteride (PROSCAR) 5 mg tablet Take 1 tablet by melissa th once daily. gabapentin (NEURONTIN) 300 mg capsule Take 1 capsule b y mouth daily at bedtime. pravastatin (PRAVACHOL) 40 mg tablet Take 1 tablet by mouth daily at bedtime. donepezil (ARICEPT) 10 mg tablet Take 1 tablet by mout h daily at bedtime. clopidogrel (PLAVIX) 75 mg tablet Take 1 tablet by melissa th once daily. [place]-3 Fatty Acids (FISH OIL) 500 mg cap Take 1 capsu le by mouth once daily. Polyethylene Glycol 3350 (MIRALAX) 17 gram/dose powder Take 17 g by mouth once daily as needed. beta-carotene(a) w-c AND e/zn/cu(OCUVITE PRESERVISION TAB) Take one(1) tablet daily. CLARITIN 10 MG ORAL TAB Take one(1) tablet daily. ASPIRIN 81MG TABLET Take one (1) tablet daily . MULTIVITAMIN TABLET Take one(1) tablet daily. ofloxacin (OCUFLOX) 0.3 % ophthalmic solution INSTILL 1 DROP IN THE RIGHT EYE EVERY 2 HOURS THE DAY BEFORE YOUR APPOINTMENT AND THE DAY OF YOUR APPOINTMENT methotrexate 2.5 mg tablet TAKE 3 TABLETS ONCE A WEEK allopurinol (ZYLOPRIM) 300 mg tablet Take 1 tablet by mouth once daily. tamsulosin ER (FLOMAX) 0.4 mg cap Take 1 capsule by [facility] daily at bedtime. fluticasone (FLONASE) 50 mcg/actuation nasal spray Use 2 Sprays in each nostril once daily. Rinse mouth after use. (Patient ellen maldonado differently: Use 2 Sprays in each nostril as needed. Rinse mouth af ter use. ) Current Facility-Administered Medications Medication Dose Route Frequency Provider Last Rate Las t Dose - NaCl 0.9% 2-10 mL 2-10 mL INTRAVENOUS q 12 H Holland Ordonez - vancomycin 1.25 g in D5W 250 mL (VANCOCIN) 0.015 g/k g/dose (Order-Specific) INTRAVENOUS Pre-Op Once Holland albright - bacitracin 50,000 Units in sodium chloride 0.9 % 250 mL 50,000 Units IRRIGATION ONCE Holland Ordonez Allergies: ALLERGIES Allergen Reactions - Bactrim [Sulfametho* Rash, Hives, Other: See Comment s Elevated bilirubin - Cats - Gold Shots [Other] - Hyoscyamine Unknown - Metronidazole Unknown - Sesame Seed - Sulfa (Sulfonamide * Rash, Hives - Tree Nut Other: See Comments - Tree Nuts [Other] ANY NUT THAT GROWS ON TREES - Trimethoprim Rash, Hives DOS EXAM: Adequate NPO Status: Yes Anesthetic Risks, Benefits, Alternatives, Personnel an d Consent Discussed: Yes Patient agrees to proceed: Yes Previous Anesthesia: No history of adverse event Airway Assessment: MP 3; Neck ROM: Limited Extension; Airway Evaluation: No significant abnormalities Symptoms of Sleep Apnea: Hypertension, Age over 50 (83 year old) and Male gender Dentition: Teeth intact Additional Physical Exam: Lungs: Patient health status unchanged since recent hi story and physical. See history and physical for exam findings. Cardiac: Patient health status unchanged since recent history and physical. See history and physical for exam findings. Additional Pertinent Findings: N/A Blood Products: Not anticipated for this procedure Anesthetic Plan: MAC with general as back up Anesthetic Monitoring: Standard ASA Monitors Pain Management Plan: Parenteral or Oral ASA Class: 3 Other Medical Problems: ILD CAD s/p CABG 1996, stent 2010 CKD 3, creatinine 1.3 HLD Symptomatic sinus bradycardia, HR 30s-40s Chronic Beta Mikala medication administered within 24 hours: N/A I have interviewed and examined the patient. I have re viewed the medical record and/or the pre-anesthesia evaluation, pertinent labs, and test results. Significant changes in the patient's condition since t he History and Physical, not otherwise documented in primary service progress notes: No This contains updated information obtained within 48 h ours of Surgery/Procedure. SIGNATURE: Asia Champion MD PATIENT NAME: Navid Cortes DATE: September 22, 2019 TIME: 8:33 AM CSN: [id number] Basic Panel on 09-22-2019 Creatinine [Mass/Vol] 1.24 mg/dL High 0.67-1.17 [facility] Comment on above: Performed By: #### P8 #### [facility] [address] [place], [place] [address] Anion gap [Moles/Vol] 8 mmol/L Normal 8-16 [facility] Comment on above: Performed By: #### P8 #### [facility] [address] [place], [place] [address] Calcium [Mass/Vol] 9.3 mg/dL Normal 8.5-10.1 [facility] Comment on above: Performed By: #### P8 #### [facility] [address] [place], [place] [address] CO2 [Moles/Vol] 30 mmol/L Normal 21-32 [facility] Comment on above: Performed By: #### P8 #### [facility] [address] [place], [place] [address] Glucose [Mass/Vol] 102 mg/dL High 70-99 [facility] Comment on above: Performed By: #### P8 #### [address] [address] Urea nitrogen [Mass/Vol] 16 mg/dL Normal 7-18 [facility] Comment on above: Performed By: #### P8 #### [facility] [address] [place] [address] Chloride [Moles/Vol] 104 mmol/L Normal 98-[address] [facility] Comment on above: Performed By: #### P8 #### [facility] [address] [place] [address] Potassium [Moles/Vol] 4.2 mmol/L Normal 3.5-5.1 [facility] Comment on above: Performed By: #### P8 #### [facility] [address] [place] [address] Sodium [Moles/Vol] 138 mmol/L Normal 136-145 [facility] Comment on above: Performed By: #### P8 #### [facility] [address] [place] [address] HISTORY PHYSICAL on 09-22-2019 HISTORY HNO ID: [id number] Normal [place] PHYSICAL Author: Holland Ordonez General Service: Electrophysiology M edical Author Type: Physician Antoni cevallos Type: HANDP Filed: 09/22/2019 10:09 AM Note Text: [facility] Electrophysiology (EP) EP Attending HANDP from 08/25/2019 copied forward here: <<<<<<<<<<<<<<<<<<<<<<<<<<<<<<<<<<<<<<<<<<<<<<<<<<& lt;<<<<< Office Visit 08/25/2019 [facility] [place] Cardiology [place] Holland Ordonez Cardiology Bradycardia +4 more Dx New Patient ; Referred by Augusto Tran Reason for Visit Progress Notes Expand All Collapse All PRIMARY CARE PHYSICIAN: Jason Snider MD [address] [place] [address] ? REFERRING PHYSICIAN: Augusto Tran MD ([facility]) [address] [address] ? Patient Care Team: Jason Snider as PCP - General (Internal Medicine ) Augusto Tran as Specialty Supervisor [employer] (Cardiology) Kenan Mari as Specialty Supervisor [employer] (Pulmonary Disease) Lorne Andrew Jr. as Specialty Supervisor [employer] (Ophtha lmology) Aracelis Aceves as Specialty Supervisor [employer] (Podiatry) Claude He as Specialty Supervisor [employer] (Ce rebrovascular) ? CHIEF COMPLAINT: Evaluation of arrhythmia ? HISTORY OF PRESENT ILLNESS: Mr. Cortes is a 83 year old male who presents today wit h his for evaluation of bradycardia. He states that he has been experiencing fatigue and tiredness for a few years. This has progressively worsened and he notices that when he walks about a mile he feels wash ed out and has to rest 4. Of time. He and his walk 2 miles nearly e very day. They walk one mile to the local [employer] for break fast, then walk the one mile back home. He feels less able to do this acti vity than previously, and has some exertional shortness of breat h. He does have chronic lung disease (interstitial lung disease) and t here has been some question about whether the lung disease is contributin g to his symptoms. He states that his local physicians have not consider the lung disease to be sufficiently severe to account for his symptoms. He has been evaluated by a dredge pipe installer, Dr. Tran. Mr. Cortes has a hist ory of coronary artery disease, with coronary bypass surgery in 1996, intracoronary stent in 2010. Last year he underwent echocardiogram and car diac stress testing that were unremarkable. He denies chest pain, orthopne a, palpitations, PND, lightheadedness or syncope. ? I have confirmed and edited as necessary, the PFSH and ROS obtained by others. ? PAST?MEDICAL?HISTORY PAST MEDICAL HISTORY Diagnosis Date - Anal stenosis 04/05/2013 - ANEMIA NORMOCYTIC 07/21/2006 - CAD (coronary artery disease) ? ? two-vessel CABG 1996 ([facility]); PCI/stent L CX 2010 - CKD (chronic kidney disease) stage 3, GFR 30-59 ml/m in ([facility]) 08/11/2016 - Closed fracture of metatarsal bone(s) 05/14/2010 - Esophageal reflux ? - Hemorrhage of gastrointestinal tract, unspecified ? - Hemorrhage of rectum and anus ? - History of prediabetes 08/05/2016 - Hyperlipidemia ? - Hypertrophy of prostate with urinary obstruction and other lower urinary tract symptoms (LUTS) 03/19/2006 - HYPERURICEMIA 09/29/2006 - Idiopathic peripheral neuropathy 03/28/2010 - Internal hemorrhoids without mention of complication ? - Interstitial lung disease (HCC) 05/18/2017 - Mild cognitive disorder 08/12/2015 - Mixed hyperlipidemia ? ? Hyperlipidemia - Occlusion and stenosis of carotid artery without men tion of cerebral infarction 07/08/2010 - OM (osteomyelitis) (HCC) 04/03/2010 - PAC (premature atrial contraction) ? - Psoriasis and similar disorders ? ? arthritis - PSORIATIC ARTHRITIS 09/29/2006 - PVC (premature ventricular contraction) ? - Unspecified essential hypertension ? ? Essential hypertension - Unspecified hypothyroidism ? - Urethral stricture 04/04/2012 - Urinary retention 03/16/2013 ? ? PAST?SURGICAL?HISTORY PAST SURGICAL HISTORY Procedure Laterality Date - AMPUTATE TOE; IP JOINT ? 2009 ? Rt foot 4th toe - BUNIONECTOMY, LAPIDUS-TYPE Right 2009 ? Right foot - CARDIAC CATH ? 01/28/2011 ? normal LV systolic fxn; normal LM, occluded LAD; LCX 50% ostial, mid 80%; left PDA 50% prox; RCA small nondominant with 70% ostial stenosis; SVG-PDA occluded; VIZCARRA Y graft to LAD and diagonal bra nch patent; - CAROTID SURGERY Left 1997 ? CAROTID-[place]-- left - CAROTID SURGERY Right 05/04/2014 ? RIGHT CAROTID - CATARACT EXTRACTION HX Bilateral 2015 - COLONOSCOP W/ OR W/O BRSH SPEC ? 08/10/2014 - CORONARY ARTERY BYPASS GRAFT ? 06/06/1997 ? CABG 2 vessel: VIZCARRA Y graft to LAD and diagonal bran ch; [facility], Dr. Valenzuela - ECHOCARDIOGRAM ? 02/18/2018 ? normal LV systolic fxn; LVEF 60%; mild pHTN; no sign ificant valvular abnormalities - HEMORRHOIDECTOMY ? 1963 - HOLTER 24 HR ? 07/14/2019 ? sinus rhythm, sinus bradycardia; min HR 33 bpm; max HR 98 bpm; avg HR 49 bpm - INSERT INTRACORONARY STENT ? 2010 ? PCI/stent to LCX - LASER GREENLIGHT PVP ? 2013 ? Prostate - LEXISCAN STRESS TEST ? ? - PAST SURGICAL HISTORY OF Right 2004 ? RIGHT LEG FRACTURE WITH RODS - PHARMACOLOGIC NUCLEAR STRESS ? 02/18/2018 ? no ischemia or scar - SD ANESTH,OPEN HEART; W/O PUMP OXYEGENATOR ? 1996 ? triple bypass - REMOVAL OF TONSILS,<12 Y/O ? 194 ? Tonsillectomy - SIGMOIDOSCOPY FLEX DIAG ? 06/19/08 - TOTAL KNEE REPLACEMENT Right 05/02/2012 ? Knee replacement, total Right [facility]. Gentile [facility] - TRANSURETHRAL ELEC-SURG PROSTATECTOM ? 2005 ? TURP - VASECTOMY ? 1971 ? ? SOCIAL HISTORY SOCIAL?HISTORY Social History ? Tobacco Use - Smoking status: Never Smoker - Smokeless tobacco: Never Used Substance Use Topics - Alcohol use: No - Drug use: No ? ? FAMILY?HISTORY FAMILY HISTORY Problem Relation Age of Onset - No Known Problems Mother ? ? from sepsis - Heart Father ? ? [place] - Diabetes Father ? - Heart Attack Father ? - other (ankylosing spondylosis) Sister ? ? ? ALLERGIES: ALLERGIES ALLERGIES Allergen Reactions - Bactrim [Sulfametho* Rash, Hives, Other: See Comment s ? ? Elevated bilirubin - Cats ? - Gold Shots [Other] ? - Hyoscyamine Unknown - Metronidazole Unknown - Sesame Seed ? - Sulfa (Sulfonamide * Rash, Hives - Tree Nut Other: See Comments - Tree Nuts [Other] ? ? ? ANY NUT THAT GROWS ON TREES - Trimethoprim Rash, Hives ? ? MEDICATIONS: CURRENT?MEDICATIONS ofloxacin (OCUFLOX) 0.3 % ophthalmic solution, INSTILL 1 DROP IN THE RIGHT EYE EVERY 2 HOURS THE DAY BEFORE YOUR APPOINTMENT AND THE DAY OF YOUR APPOINTMENT lisinopril (ZESTRIL, PRINIVIL) 10 mg tablet, Take 1 ta blet by mouth once daily. methotrexate 2.5 mg tablet, TAKE 3 TABLETS ONCE A WEEK famotidine (PEPCID) 20 mg tablet, Take 1 tablet by twice daily. levothyroxine (SYNTHROID) 150 mcg tablet, Take 1 table t daily Wednesday through Wednesday and take 1/2 tablet on Wednesday. allopurinol (ZYLOPRIM) 300 mg tablet, Take 1 tablet by mouth once daily. finasteride (PROSCAR) 5 mg tablet, Take 1 tablet by mo h once daily. gabapentin (NEURONTIN) 300 mg capsule, Take 1 capsule by mouth daily at bedtime. pravastatin (PRAVACHOL) 40 mg tablet, Take 1 tablet by mouth daily at bedtime. tamsulosin ER (FLOMAX) 0.4 mg cap, Take 1 capsule by m outh daily at bedtime. donepezil (ARICEPT) 10 mg tablet, Take 1 tablet by melissa th daily at bedtime. clopidogrel (PLAVIX) 75 mg tablet, Take 1 tablet by mo uth once daily. [place]-3 Fatty Acids (FISH OIL) 500 mg cap, Take 1 caps ule by mouth once daily. nitroglycerin sublingual (NITROQUICK) 0.4 mg SL tablet , Dissolve 1 tablet under the tongue as needed. FOR CHEST PAIN. IF NO RELI EF CALL 911 fluticasone (FLONASE) 50 mcg/actuation nasal spray, Us e 2 Sprays in each nostril once daily. Rinse mouth after use. Polyethylene Glycol 3350 (MIRALAX) 17 gram/dose powder , Take 17 g by mouth once daily as needed. beta-carotene(a) w-c AND e/zn/cu(OCUVITE PRESERVISION TAB), Take one(1) tablet daily. CLARITIN 10 MG ORAL TAB, Take one(1) tablet daily. ASPIRIN 81MG TABLET, Take one (1) tablet daily . MULTIVITAMIN TABLET, Take one(1) tablet daily. ? REVIEW OF SYSTEMS: PAIN ASSESSMENT: Negative for pain, history of chronic pain, or current treatment for a chronic pain condition. GENERAL: Negative for: Weight loss or gain, Fever or C hills, Weakness and Sleep difficulties. HEENT: Positive for:Impaired Vision, Glasses and Heari ng Impairment , Negative for:Headache, Ringing in Ears, Nosebleeds, Po or Dental Care and Bleeding Gums NECK: Negative for: Swelling, Pain, Stiffness RESPIRATORY: Positive for: Shortness of breath , Negat charles for:Blood in Sputum GASTROINTESTINAL: Negative for: Trouble swallowing, He artburn, Change in bowel habits, Blood in stool, Dark black stools MUSCULOSKELETAL: Negative for: Muscle or joint pain, s tiffness, Joint swelling NEUROLOGIC/PSYCHIATRIC: Negative for: Weakness, Paraly sis, Numbness, Tingling, Tremor, Nervousness or anxiety, Depressed mo od, Memory loss SKIN: Negative for: Rash, Itching HEMATOLOGICAL/LYMPHATIC: Negative for: Easy bruising, Easy bleeding ENDOCRINE: Negative for: Heat or Cold Intolerance, Exc essive Sweating, Frequent Urination, Frequent Thirst ? PHYSICAL EXAMINATION: BP 140/66 Pulse 47 Resp 16 Ht 6' 0 (1.83m) Wt 175 lb 12.8 oz (79.7kg) SpO2 96% BMI 23.84 kg/(m2). General: In no acute distress. Skin: No clubbing, no cyanosis. Eyes: Extra ocular movements intact, Non-icteric scler ae Neck: no jugular venous distention, Lungs: some reduction in air exchange bilaterally; no wheezes or rhonchi Heart: Regular rhythm, S1, S2 normal, no rub; +bradyca rdia; +Gr I/ systolic murmur LSB Abdomen: Soft, nontender, bowel sounds normal Extremities: No peripheral edema Neuro: Oriented to person, place and time, alert, coop erative CARDIOVASCULAR MEDICINE TESTING: Electrocardiogram: Sinus bradycardia 42 bpm; borderlin e first-degree AV block (SD 200 ms); normal QRS duration 112 ms ? I have personally reviewed the Electrocardiogram. ? ASSESSMENT/PLAN: 1. Bradycardia - ICD9: 427.89, ICD10: R00.1 (primary d iagnosis) 2. Atherosclerosis of [place] coronary artery of [place] heart without angina pectoris - ICD9: 414.01, ICD10: I25.10 3. Chronic kidney disease, stage 3 (moderate) (HCC) - ICD9: 585.3, ICD10: N18.3 4. Fatigue, unspecified type - ICD9: 780.79, ICD10: R5 3.83 5. Dizziness and giddiness - ICD9: 780.4, ICD10: R42 ? IMPRESSION: Mr. Cortes has severe sinus bradycardia that is most li ann marie symptomatic. Symptoms would be the primary indication for cardiac p acing in this situation, such that if he was not considered to have symptoms then cardiac pacing would not be indicated. It is acknowled ged that it is challenging to determine the relative contributions of his medical conditions to his symptom, particularly with regards t o the chronic lung disease and the sinus bradycardia. It seems fairly vega ar that he is not having likely myocardial ischemia or heart failure as a cause of his symptoms. He states that he has been told by his local physicians including his oil distributor that the exertional shortn ess of breath and effort intolerance, fatigue are not likely to be cause d by the lung disease and is more likely to be caused by the bradyca rdia. I think this is a very reasonable conclusion and the sinus bradycar mercy and chronotropic incompetence seem to be sufficiently severe to be expe cted to potentially cause symptoms. ? I had a detailed discussion with Mr. Cortes and his wif e regarding the situation with his heart rate. As noted above, I think that it is very likely that the sinus bradycardia is symptomatic, and that he would have a reasonable chance of having improve quality of life wi pacemaker implantation. I did inform him that the type of bradyc ardia that he has is not typically life-threatening and is not unpredictabl e like the bradycardia from heart block. So I think that we do no t have an urgent situation on her hands where we need to make a quick d ecision. ? I had a detailed discussion with Mr. Cortes regarding m y evaluation and recommendations. After our discussion, Mr. Cortes expre ssed his understanding and I answered all his questions to his apparent satisfaction. He seems inclined to want to proceed wit h a pacemaker. A dual-chamber pacemaker would be indicated to maintain AV synchrony. He has evidence of A-V conduction disease with borderline fir st-degree AV block, so at his age I would not recommend a single-chamber a trial pacemaker system. Mr. Cortes states that he has an appointment wi his oil distributor, Dr. Mari, sometime very soon and woul d like to get his opinion about the degree of contribution of the lung d isease to his symptoms. I told Mr. Cortes that if Dr. Mari feels th at the symptoms are not substantially attributable to the lung disease the n I recommend proceeding with pacemaker implantation, as the expecta tion would be that he would have improvement in quality of life. ? INFORMED CONSENT ? The risks, benefits and anticipated outcomes of the pr ocedure, the risks and benefits of the alternatives to the procedure and the roles and tasks of the personnel to be involved were discussed with e patient. Consent for the procedure and agreement to proceed has been ob tained. ? I verify that I personally obtained the consent. ? PLAN AND RECOMMENDATIONS: I will plan on pacemaker implantation unless we find f rom Dr. Mari that the lung disease is primarily responsible for Mr. Germaine noguera's symptoms. I will have my office contact Mr. Cortes to follow up with him about this situation in the next week or so, after the appointmen t with Dr. Mari. ? ? Holland Ordonez MD August 25, 2019 8:09 PM Note Details Other Notes Nursing Note from Elen Allen Instructions Return if symptoms worsen or fail to improve. After Visit Summary (Printed 08/25/2019) Additional Documentation Vitals: ? BP 140/66 (BP Site: Left Arm, BP Position: S itting, BP Cuff Size: Regular Adult) Pulse 47 Resp 16 Ht 182.9 cm (6') Wt 79.7 kg (175 lb 12.8 oz) SpO2 96% BMI 23.84 kg/m? BSA 2.01 m? More Vitals Flowsheets: ? [facility] PDMP NARXCARE SCORES, AMB ROOMING INTAKE MINI Encounter Info: ? Billing Info, History, Allergies, Detailed Report Communications Letter sent to Jason Snider MD and 2 others [facility] - HTML Hemogram on 09-22-2019 Erythrocyte distribution width 12.9 % Normal 11.6-14.4 [facility] (RBC) [Ratio] Comment on above: Performed By: #### CBC1 #### [place] [address] Hematocrit (Bld) [Volume 41.4 % Normal 40.1-51.0 [facility] fraction] Comment on above: Performed By: #### CBC1 #### [place] [address] Hemoglobin (Bld) [Mass/Vol] 13.4 g/dL Low 13.7-17.5 [facility] Comment on above: Performed By: #### CBC1 #### [place] [address] MCH (RBC) [Entitic mass] 31.7 pg Normal 25.7-32.2 [facility] Comment on above: Performed By: #### CBC1 #### [place] [address] MCHC (RBC) [Mass/Vol] 32.4 % Normal 32.3-36.5 [facility] Comment on above: Performed By: #### CBC1 #### [place] [address] MCV (RBC) [Entitic vol] 97.9 fL High 83.2-95.[address] [facility] Comment on above: Performed By: #### CBC1 #### [facility] [address] [place], [place] [address] Platelet mean volume (Bld) 9.5 fL Normal 8.7-12.0 [facility] [Entitic vol] Comment on above: Performed By: #### CBC1 #### [facility] [address] [place], [place] [address] Platelets (Bld) [#/Vol] 216 thou/cmm Normal 141-[address] [facility] Comment on above: Performed By: #### CBC1 #### [facility] [address] [place], [place] [address] RBC (Bld) [#/Vol] 4.23 mil/cmm Low 4.63-6.08 [facility] Comment on above: Performed By: #### CBC1 #### [facility] [address] [place] [address] RDW SD 45.5 fl Normal 36.1-45.8 [facility] Comment on above: Performed By: #### CBC1 #### [facility] [address] [place], [place] [address] WBC (Bld) [#/Vol] 8.38 thou/cmm Normal 4.23-9.07 [facility] Comment on above: Performed By: #### CBC1 #### [facility] [address] [place] [address] NURSING PROG on 09-22-2019 NURSING HNO ID: [id number] [facility] PROG Author: Amie (Rn) YOANA Bergman General Service: Nursing Medical Author Type: Registered Nurse Center Type: Nursing Progress Note Filed: 09/22/2019 1:42 PM Note Text: Nursing Progress Note Patient Name: Navid Cortes Patient Location: Notified Juan MARKETING INTELLIGENCE MANAGER with EP that pt's BP has been elevat ed since he has been on the floor, and that he took his lisinopril thi s AM. Reviewed VS, procedure chart and chart with MARKETING INTELLIGENCE MANAGER, she stated to mani r her in one hour is it remains elevated by paging #[phone] This note was completed by: Amie Bergman RN PROGRESS on 09-22-2019 PROGRESS HNO ID: [id number] [facility] Author: Elizabeth (Rn) YOANA Pardo Service: Electrophysiology Author Type: Registered Nurse Type: Progress Notes Filed: 09/22/2019 3:04 PM Note Text: Pacemaker discharge teaching reviewed with patient and family. IGOR on 08-29-2019 CNPN Telephone (AGCARDPOB) Normal [facility] NAVID CORTES ([id number]) 1935 M Medical Date Time Provider Department Center 08/29/19 HOLLAND ORDONEZ AGCARDPOB During your visit today, we recorded the following inf ormation about you: Traci Hina 08/29/2019 3:35 PM Signed Patient is scheduled for Dual Chamber Pacemaker Implan t on 09/22/[address] Ordonez. Hospital will call day before between 2-5p m with arrival time. Patient should not eat or drink after midnight day bef ore procedure. Patient will need a ambulance driver day of procedure. Patient should co ntinue to take medications as prescribed morning of pro cedure with just a sip of water unless otherwise instructed. Spoke with spouse, confirmed date and verbalized under standing of all instructions given. Traci Lau RN 08/30/2019 9:22 AM Signed Pt's name has been [facility] to [facility] procedure board. Annabelle Lau RN Allergies As of Date: 08/29/2019 Noted Allergy Reactio n BACTRIM (SULFAMETHOXAZOLE-TRIMETH*05/02/2007 2 - Rash 4 - Hives 14 - Other: See Comments Comments: Elevated bilirubin CATS 07/21/2006 Gold Shots [Other] 08/22/2003 HYOSCYAMINE 08/23/2003 16 - Unknown METRONIDAZOLE 08/23/2003 16 - Unknown SESAME SEED 08/11/2005 SULFA (SULFONAMIDE ANTIBIOTICS) 03/02/2019 2 - Rash 4 - Hives TREE NUT 03/02/2019 14 - Other: See Comments TREE NUTS [Other] 08/11/2005 Comments: ANY NUT THAT GROWS ON TREES TRIMETHOPRIM 03/02/2019 2 - Rash 4 - Hives Date Reviewed: 08/25/2019 Reviewed by: Holland Ordonez - Fully Assessed Reason for Visit: Preparations For Procedures [899] Cmt: Dual Chamber Pa cemaker Implant Reason For Visit History Recorded Prescriptions as of 08/29/2019 Sig: OFLOXACIN 0.3 % EYE DROPS INSTILL 1 DROP IN THE RIGHT E* LISINOPRIL 10 MG TABLET Take 1 tablet by mouth once d* METHOTREXATE SODIUM 2.5 MG TA* TAKE 3 TABLETS ONCE A [facility] FAMOTIDINE 20 MG TABLET Take 1 tablet by mouth twice * LEVOTHYROXINE 150 MCG TABLET Take 1 tablet daily y * ALLOPURINOL 300 MG TABLET Take 1 tablet by mouth once d* FINASTERIDE 5 MG TABLET Take 1 tablet by mouth once d* GABAPENTIN 300 MG CAPSULE Take 1 capsule by mouth cary y* PRAVASTATIN 40 MG TABLET Take 1 tablet by mouth daily * TAMSULOSIN 0.4 MG CAPSULE Take 1 capsule by mouth cary y* DONEPEZIL 10 MG TABLET Take 1 tablet by mouth daily * CLOPIDOGREL 75 MG TABLET Take 1 tablet by mouth once d * [place]-3 FATTY ACIDS 500 MG CA* Take 1 capsule by mouth once * NITROGLYCERIN 0.4 MG SUBLINGU* Dissolve 1 tablet under the t* FLUTICASONE PROPIONATE 50 MCG* Use 2 Sprays in each no stril * Patient taking differently: Use 2 Sprays in each nostr il * * POLYETHYLENE GLYCOL 3350 17 G* Take 17 g by mouth on ce daily* * PRESERVISION AREDS 7,160 UNIT* Take one(1) tablet da magi. * CLARITIN 10 MG TABLET Take one(1) tablet daily. * ASPIRIN 81 MG TABLET Take one (1) tablet daily . * MULTIVITAMIN TABLET Take one(1) tablet daily. Problem List As Of Date 08/29/2019 Noted Resolved Retention of urine, unspecified [R33.9] INVALID FOR* Bladder neck obstruction [N32.0] INVALID FOR* 6 BPH with obstruction/lower urinary tract sympto*INVALI D FOR* HYDRONEPHROSIS [N13.30] INVALID FOR*05/24/2006 Essential (primary) hypertension [I10] INVALID FOR* HYPERLIPIDEMIA [E78.5] INVALID FOR*03/17/2016 Atherosclerosis of coronary artery bypass graft*INVALI D FOR* ANEMIA NORMOCYTIC [D64.9] INVALID FOR* ABNORMAL GLUCOSE [R73.09] INVALID FOR*08/12/2015 Hyperuricemia [E79.0] INVALID FOR* Hypothyroidism [E03.9] INVALID FOR* PSORIATIC ARTHRITIS [L40.50] INVALID FOR*08/17/2017 Other hammer toe (acquired) [M20.40] INVALID FOR*08/17 Hallux valgus (acquired) [M20.10] INVALID FOR*03/17/20 16 Other atopic dermatitis and related conditions *INVALI D FOR*08/12/2015 Unspecified pruritic disorder [L29.9] INVALID FOR*02/21 ECZEMATOUS DERMATITIS NOS [L25.9] INVALID FOR*08/05/20 16 Other psoriasis [L40.8] INVALID FOR* XEROSIS///SEBACEOUS GLAND DIS NEC [L73.8] INVALID FOR* 03/18/2015 SOLAR LENTIGINES///DYSCHROMIA OTHER [L81.9] INVALID FO R*08/12/2015 Other seborrheic keratosis [L82.1] INVALID FOR* 015 ACTINIC DAMAGE///CHR SOLAR SKIN DAMAGE NOS [L57*INVALI D FOR*08/12/2015 Dyshidrosis [L30.1] INVALID FOR*08/05/2016 Hemorrhage of rectum and anus [K62.5] 08/05/2016 Benign neoplasm of skin of lower limb, includin*INVALI D FOR*08/05/2016 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] INVALID FOR*2009 Idiopathic peripheral neuropathy [G60.9] INVALID FOR* DM Neuro Manif Type II [E11.49] INVALID FOR*06/10/2010 OM (osteomyelitis) (HCC) [M86.9] INVALID FOR* 6 Closed fracture of metatarsal bone(s) [S92.309A]INVALI D FOR*08/05/2016 Abnormality of gait [R26.9] INVALID FOR*08/05/2016 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 Bradycardia [R00.1] INVALID FOR* Atherosclerosis of [place] coronary artery of na*INVALI D FOR* Chronic obstructive pulmonary disease with (acu*INVALI D FOR* Dizziness and giddiness [R42] INVALID FOR* Fatigue [R53.83] INVALID FOR* Gout [M10.9] INVALID FOR* Vasculitis (HCC) [I77.6] INVALID FOR* Encounter Status:Closed by TRACI FLORES on 08/29/19 HOSP on 08-28-2019 HOSP Patient:Navid Cortes Normal [facility] MRN: [place] Height:6' 0 (1.829 m) Weight:173 lb 9.6 oz (78.744 kg) Outpatient Medications as of 09/22/19: nitroglycerin sublingual (NITROQUICK) 0.4 mg SL tablet ofloxacin (OCUFLOX) 0.3 % ophthalmic solution lisinopril (ZESTRIL, PRINIVIL) 10 mg tablet methotrexate 2.5 mg tablet famotidine (PEPCID) 20 mg tablet levothyroxine (SYNTHROID) 150 mcg tablet allopurinol (ZYLOPRIM) 300 mg tablet finasteride (PROSCAR) 5 mg tablet gabapentin (NEURONTIN) 300 mg capsule pravastatin (PRAVACHOL) 40 mg tablet tamsulosin ER (FLOMAX) 0.4 mg cap donepezil (ARICEPT) 10 mg tablet clopidogrel (PLAVIX) 75 mg tablet [place]-3 Fatty Acids (FISH OIL) 500 mg cap fluticasone (FLONASE) 50 mcg/actuation nasal spray Polyethylene Glycol 3350 (MIRALAX) 17 gram/dose powder beta-carotene(a) w-c AND e/zn/cu(OCUVITE PRESERVISION TAB) CLARITIN 10 MG ORAL TAB ASPIRIN 81MG TABLET MULTIVITAMIN TABLET Admission/Clinic Administered Medications as of 9: NaCl 0.9% 2-10 mL vancomycin 1.25 g in D5W 250 mL (VANCOCIN) bacitracin 50,000 Units in sodium chloride 0.9 % 250 m L Problem List: BPH with obstruction/lower urinary tract symptoms [N40 .1, N13.8] Essential (primary) hypertension [I10] Atherosclerosis of coronary artery bypass graft [I25.8 10] ANEMIA NORMOCYTIC [D64.9] Hyperuricemia [E79.0] Hypothyroidism [E03.9] Other psoriasis [L40.8] Idiopathic peripheral neuropathy [G60.9] Actinic Keratosis (Premalignant [place]) [L57.0] Impotence [N52.9] Nocturia [R35.1] Anal stenosis [K62.4] Senile cataract [H25.9] Mild cognitive disorder [F09] History of prediabetes [Z87.898] Chronic kidney disease, stage 3 (moderate) (HCC) [N18. 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] Long-term use of high-risk medication [Z79.899] Interstitial lung disease (HCC) [J84.9] Bradycardia [R00.1] Atherosclerosis of [place] coronary artery of [place] he art without angina pectoris [I25.10] Chronic obstructive pulmonary disease with (acut e) exacerbation (HCC) [J44.1] Dizziness and giddiness [R42] Fatigue [R53.83] Gout [M10.9] Vasculitis (HCC) [I77.6] Allergies: Bactrim [Sulfamethoxazole-Trimethoprim] Cats Gold Shots [Other] Hyoscyamine Metronidazole Sesame Seed Sulfa (Sulfonamide Antibiotics) Tree Nut TREE NUTS [Other] Trimethoprim Date Verified: 09/22/19 Lab Values Lab Value Units Date High Low NAVEED* 41.4 % 09/22/2019 51.0 40.1 Progress Notes ([facility]): Nicol Krishnamurthy LPN 09/11/2019 9:40 AM Signed Last OV: 07/17/19 Last RX: 02/28/18 Patient has been identified by name and date of : Yes Pending Prescriptions Disp Refills NITROGLYCERIN 0.4 MG SUBLINGUAL TABLET 25 tablet 6 Sig: Dissolve 1 tablet under the tongue as needed. FOR CHEST PAIN. IF NO RELIEF CALL 911 TABITHA: No RX INSTRUCTIONS: Patient aware RX will be sent to pharmacy. No need to notify patient. Nicol Krishnamurthy LPN Progress Notes ([facility]): Traci Flores 08/29/2019 3:35 PM Signed Patient is scheduled for Dual Chamber Pacemaker Implan t on 09/22/[address] Ordonez. Hospital will call day before between 2-5p m with arrival time. Patient should not eat or drink after midnight day bef ore procedure. Patient will need a ambulance driver day of pr ocedure. Patient should continue to take medications as prescribed morning of procedure with just a sip of water unless otherwise instructed. Spoke with spouse, confirmed date and verbalized under standing of all instructions given. Traci Flores Annabelle Lau RN 08/30/2019 9:22 AM Signed Pt's name has been added to [facility] procedure board. Annabelle Lau RN CNOV on 08-25-2019 CNOV Office Visit (AGCARDPOB) [facility] NAVID CORTES ([id number]) 1935 M Medical Date Time Provider Department Center 08/25/19 9:20 AM HOLLAND ORDONEZ AGCDEANNA During your visit today, we recorded the following inf ormation about you: Pulse Respiration Blood pressure Weight 47/minute 16/minute 140/66 79.7 kg Height 1.829 m Holland Ordonez MD 08/25/2019 8:15 PM Signed PRIMARY CARE PHYSICIAN: Jason Snider MD [address] [place] [address] REFERRING PHYSICIAN: Augusto Tran MD ([facility]) [address] [address] Patient Care Team: Jason Snider as PCP - General (Internal Medicine ) Augusto Tran as Specialty Supervisor [employer] (Cardiology) Kenan Mari as Specialty Supervisor [employer] (Pulmonary Disease) Lorne Andrew Jr. as Specialty Supervisor [employer] (Ophtha lmology) Aracelis Aceves as Specialty Supervisor [employer] (Podiatry) Claude He as Specialty Supervisor [employer] (Ce rebrovascular) CHIEF COMPLAINT: Evaluation of arrhythmia HISTORY OF PRESENT ILLNESS: Mr. Cortes is a 83 year old m arianna who presents today with his for evaluation of bradycardia. He states that he has been exper iencing fatigue and tiredness for a few years. This has progressively worsened and h e notices that when he walks about a mile he feels washed out and has to rest 4. Of time. He and his walk 2 miles nearly chau ry day. They walk one mile to the local [employer] restaurant for breakfast, then walk the one mile back home. He feels less able to do this activity than previously, and has some exer tional shortness of breath. He does have chronic lung disease (interstitial lung disease) and there has been some question about whether the lung disease is contributing to his symptoms. He states that his local physicians have not consider the lung disease to be sufficiently severe to account for his s ymptoms. He has been evaluated by a dredge pipe installer, Dr. Tran. Mr. Cortes has a history of coronary artery disease, with coronary bypass surgery in 1996, intracoronary stent in 2010. Last year he underwent echocardiogram and cardia c stress testing that were unremarkable. He denies chest pain, orthopnea, pa lpitations, PND, lightheadedness or syncope. I have confirmed and edited as necessary , the PFSH and ROS obtained by others. PAST MEDICAL HISTORY Diagnosis Date - Anal stenosis 04/05/2013 - ANEMIA NORMOCYTIC 07/21/2006 - CAD (coronary artery disease) two-vessel CABG 1996 ([facility]); PCI/stent LCX 2010 - CKD (chronic kidney disease) stage 3, GFR 30-59 ml/m in ([facility]) 08/11/2016 - Closed fracture of metatarsal bone(s) 05/14/2010 - Esophageal reflux - Hemorrhage of gastrointestinal tract, unspecified - Hemorrhage of rectum and anus - History of prediabetes 08/05/2016 - Hyperlipidemia - Hypertrophy of prostate with urinary obstruction and other lower urinary tract symptoms (LUTS) 03/19/2006 - HYPERURICEMIA 09/29/2006 - Idiopathic peripheral neuropathy 03/28/2010 - Internal hemorrhoids without mention of complication - Interstitial lung disease ([facility]) 05/18/2017 - Mild cognitive disorder 08/12/2015 - Mixed hyperlipidemia Hyperlipidemia - Occlusion and stenosis of carotid artery without men tion of cerebral infarction 07/08/2010 - OM (osteomyelitis) ([facility]) 04/03/2010 - PAC (premature atrial contraction) - Psoriasis and similar disorders arthritis - PSORIATIC ARTHRITIS 09/29/2006 - PVC (premature ventricular contraction) - Unspecified essential hypertension Essential hypertension - Unspecified hypothyroidism - Urethral stricture 04/04/2012 - Urinary retention 03/16/2013 PAST SURGICAL HISTORY Procedure Laterality Date - AMPUTATE TOE; IP JOINT 2009 Rt foot 4th toe - BUNIONECTOMY, LAPIDUS-TYPE Right 2010 Right foot - CARDIAC CATH 01/28/2011 normal LV systolic fxn; normal LM, occlu ded LAD; LCX 50% ostial, mid 80%; left PDA 50% prox; RCA small nond ominant with 70% ostial stenosis; SVG-PDA occluded; VIZCARRA Y graft to LAD and diagonal branch patent; - CAROTID SURGERY Left 1997 CAROTID-garret-- left - CAROTID SURGERY Right 05/04/2014 RIGHT CAROTID - CATARACT EXTRACTION HX Bilateral 2016 - COLONOSCOP W/ OR W/O BRSH SPEC 08/10/2014 - CORONARY ARTERY BYPASS GRAFT 06/06/1997 CABG 2 vessel: VIZCARRA Y graft to LAD and diagonal branch; [facility], Dr. Valenzuela - ECHOCARDIOGRAM 02/18/2018 normal LV systolic fxn; LVEF 60%; mild pHTN; no signif icant valvular abnormalities - HEMORRHOIDECTOMY 1962 - HOLTER 24 HR 07/14/2019 sinus rhythm, sinus bradycardia; min HR 33 bpm; max HR 98 bpm; avg HR 49 bpm - INSERT INTRACORONARY STENT 2010 PCI/stent to LCX - LASER GREENLIGHT PVP 2013 Prostate - LEXISCAN STRESS TEST - PAST SURGICAL HISTORY OF Right 2003 RIGHT LEG FRACTURE WITH RODS - PHARMACOLOGIC NUCLEAR STRESS 02/18/2018 no ischemia or scar - SD ANESTH,OPEN HEART; W/O PUMP OXYEGENATOR 1996 triple bypass - REMOVAL OF TONSILS,<12 Y/O 1941 Tonsillectomy - SIGMOIDOSCOPY FLEX DIAG 06/19/08 - TOTAL KNEE REPLACEMENT Right 05/02/2012 Knee replacement, total Right Dr. Gentile [facility] - TRANSURETHRAL ELEC-SURG PROSTATECTOM 2006 TURP - VASECTOMY 1971 SOCIAL HISTORY Social History Tobacco Use - Smoking status: Never Smoker - Smokeless tobacco: Never Used Substance Use Topics - Alcohol use: No - Drug use: No FAMILY HISTORY Problem Relation Age of Onset - No Known Problems Mother from sepsis - Heart Father [place] - Diabetes Father - Heart Attack Father - other (ankylosing spondylosis) Sister ALLERGIES: ALLERGIES Allergen Reactions - Bactrim [Sulfametho* Rash, Hives, Other: See Comment s Elevated bilirubin - Cats - Gold Shots [Other] - Hyoscyamine Unknown - Metronidazole Unknown - Sesame Seed - Sulfa (Sulfonamide * Rash, Hives - Tree Nut Other: See Comments - Tree Nuts [Other] ANY NUT THAT GROWS ON TREES - Trimethoprim Rash, Hives MEDICATIONS: ofloxacin (OCUFLOX) 0.3 % ophthalmi c solution, INSTILL 1 DROP IN THE RIGHT EYE EVERY 2 HOURS THE DAY BEFORE YOUR APPOINTMENT AND THE DAY OF YOUR APPOINTMENT lisinopril (ZESTRIL, PRINIVI L) 10 mg tablet, Take 1 tablet by mouth once daily. methotrexate 2.5 mg tablet, TAKE 3 TABLETS ONCE A WEEK famotidine (PEPCID) 20 mg tablet, Take 1 tablet by melissa th twice daily. levothyroxine (SYNTHROID) 150 mcg tablet, Take 1 table t daily Wednesday through Wednesday and take 1/2 tablet on Wednesday. allopurinol (ZYLOPRIM) 300 mg tablet, Take 1 tablet by mouth once daily. finasteride (PROSCAR) 5 mg tablet, Take 1 tablet by mo uth once daily. gabapentin (NEURONTIN) 300 m g capsule, Take 1 capsule by mouth daily at bedtime. pravastatin (PRAVACHOL) 40 mg tablet, Ta ke 1 tablet by mouth daily at bedtime. tamsulosin ER (FLOMAX) 0.4 mg cap, Take 1 capsule by m outh daily at bedtime. donepezil (ARICEPT) 10 mg tablet, Take 1 tablet by melissa th daily at bedtime. clopidogrel (PLAVIX) 75 mg tablet, Take 1 tablet by mo uth once daily. [place]-3 Fatty Acids (FISH OIL) 500 mg ca p, Take 1 capsule by mouth once daily. nitroglycerin sublingual (NI TROQUICK) 0.4 mg SL tablet, Dissolve 1 tablet under the tongue as needed. FOR CHEST PAIN. IF NO RELIEF KELSI L 911 fluticasone (FLONASE) 50 mcg/actuation nasal spray, Us e 2 Sprays in each nostril once daily. Rinse mouth after use. Polyethylene Glycol 3350 ([place] RALAX) 17 gram/dose powder, Take 17 g by mouth once daily as needed. beta-carotene(a) w-c AND e/zn/cu(OCUVITE PRESERVISION TAB), Take one(1) tablet daily. CLARITIN 10 MG ORAL TAB, Take one(1) tablet daily. ASPIRIN 81MG TABLET, Take one (1) tablet daily . MULTIVITAMIN TABLET, Take one(1) tablet daily. REVIEW OF SYSTEMS: PAIN ASSESSMENT: Negative for pain, history of chronic pain, or current treatment for a chronic pain condition. GENERAL: Negative for: Weigh t loss or gain, Fever or Chills, Weakness and Sleep difficulties. HEENT: Positive for:Impaired Vision, Gla sses and Hearing Impairment , Negative for:Headache, Ringing in Ears, Nosebleeds, Poor Dental Care and Bleeding Gums NECK: Negative for: Swelling, Pain, Stiffness RESPIRATORY: Positive for: Shortness of breath , Negative for:Blood in Sputum GASTROINTESTINAL: Negative for: Trouble swallowing, Heartburn, Change in bowel habits, Blood in stool, Dark black stools MUSCULOSKELETAL: Negative for: Muscle or joint pain, stiffness, Joint swelling NEUROLOGIC/PSYCHIATRIC: Negative for: We akness, Paralysis, Numbness, Tingling, Tremor, Nervousness or anxiety, Depressed mood, Memory loss SKIN: Negative for: Rash, Itching HEMATOLOGICAL/LYMPHATIC: Negative for: Easy bruising, Easy bleeding ENDOCRINE: Negative for: Heat or Cold Intolerance, Exc essive Sweating, Frequent Urination, Frequent Thirst PHYSICAL EXAMINATION: BP 140/66 Pulse 47 Resp 16 Ht 6' 0 (1.83m) Wt 175 lb 12.8 oz (79.7kg) SpO2 96% BMI 23.84 kg/(m2). General: In no acute distress. Skin: No clubbing, no cyanosis. Eyes: Extra ocular movements intact, Non-icteric scler ae Neck: no jugular venous distention, Lungs: some reduction in air exchange bilaterally; no wheezes or rhonchi Heart: Regular rhythm, S1, S2 normal, no rub; +b radycardia; +Gr I/ systolic murmur LSB Abdomen: Soft, nontender, bowel sounds normal Extremities: No peripheral edema Neuro: Oriented to person, place and time, alert, coop erative CARDIOVASCULAR MEDICINE TESTING: Electrocardiogram: Sinus bradycardia 42 bpm; bor derline first-degree AV block (SD 200 ms); normal QRS duration 112 ms I have personally reviewed the Electrocardiogram. ASSESSMENT/PLAN: 1. Bradycardia - ICD9: 427.89, ICD10: R00.1 (primary d iagnosis) 2. Atherosclerosis of [place] coronary artery of [place] heart without angina pectoris - ICD9: 414.01, ICD10: I25.10 3. Chronic kidney disease, s tage 3 (moderate) (HCC) - ICD9: 585.3, ICD10: N18.3 4. Fatigue, unspecified type - ICD9: 780.79, ICD10: R5 3.83 5. Dizziness and giddiness - ICD9: 780.4, ICD10: R42 IMPRESSION: Mr. Cortes has severe sinus bradycardia that is most li ann marie symptomatic. Symptoms would be the primary indication for cardiac pacing in this situation, such that if he was not considered to have sympt oms then cardiac pacing would not be indicated. It is acknowledged that it is challe nging to determine the relative contributions of his medical conditions to his symptom, particularly with regards to the chronic lung disease and the sinus bradycardia. It seems fairly clear that he is not having likel y myocardial ischemia or heart failure as a cause of his symptoms. He states that he has been told by his local physicians including his oil distributor t hat the exertional shortness of breath and effort intolerance, fati cathy are not likely to be caused by the lung disease and is more likely to be caused by the bradycardia. I think this is a very reasonable conclusion and the sinus bradycardia and chronotropic incompetence seem to be sufficiently severe to be expected to poten tially cause symptoms. I had a detailed discussion with Mr. Cortes and his regarding the situation with his heart rate. As noted above, I think that it i s very likely that the sinus bradycardia is symptom atic, and that he would have a reasonable chance of having improve quality of life with pacemaker implanta tion. I did inform him that the type of bradycardia that he has is not typically life-threatening and is not unpredictable like the bradycardi a from heart block. So I think that we do not have an urgent situation on her hands where we need to make a quick decision. I had a detailed discussion with Mr. Cortes regarding m y evaluation and recommendations. After our discussion, Mr. Cortes expre ssed his understanding and I answered all his questions to his apparent satis faction. He seems inclined to want to proceed with a pacemaker. A dual-chamber pacemaker would be indicated to maintain AV synchrony. 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 Mr. Cortes stat es that he has an appointment with his oil distributor, Dr. Mari, someti me very soon and would like to get his opinion abou t the degree of contribution of the lung disease to his symptoms. I told Mr. Cortes that if Dr. Elier cevallos feels that the symptoms are not substantially attributable to the ayan ng disease then I recommend proceeding with pacemaker implantation, as the expectation would be that he would have improvement in quality of life. INFORMED CONSENT The risks, benefits and anticipated outcomes of the pr ocedure, the risks and benefits of the alternatives to the procedure and the roles and tasks of the personnel to be involved were discussed with the patie nt. Consent for the procedure and agreement to proceed has been obtained. I verify that I personally obtained the consent. PLAN AND RECOMMENDATIONS: I will plan on pacemaker implantation unless we find from Dr. Mari that the lung disease is primarily responsible fo r Mr. Cortes's symptoms. I will have my office contact Mr. Cortes to follow up with him about this situation in the next week or so, after the appointment with Dr. Mari. Holland Ordonez MD August 25, 2019 8:09 PM Elen Allen CMA 08/25/2019 9:26 AM Signed Patient denies any cardiac complaints today. Elen Allen CMA Referring Provider: AUGUSTO TRAN [[id number]] Allergies As of Date: 08/25/2019 Noted Allergy Reactio n BACTRIM (SULFAMETHOXAZOLE-TRIMETH*05/02/2007 2 - Rash 4 - Hives 14 - Other: See Comments Comments: Elevated bilirubin CATS 07/21/2006 Gold Shots [Other] 08/22/2003 HYOSCYAMINE 08/23/2003 16 - Unknown METRONIDAZOLE 08/23/2003 16 - Unknown SESAME SEED 08/11/2005 SULFA (SULFONAMIDE ANTIBIOTICS) 03/02/2019 2 - Rash 4 - Hives TREE NUT 03/02/2019 14 - Other: See Comments TREE NUTS [Other] 08/11/2005 Comments: ANY NUT THAT GROWS ON TREES TRIMETHOPRIM 03/02/2019 2 - Rash 4 - Hives Date Reviewed: 08/25/2019 Reviewed by: Holland Ordonez - Fully Assessed Reason for Visit: New Patient [172] Primary Visit Diagnosis:Bradycardia [R00.1] Other Visit Diagnoses:Atherosclerosis of [place] ri[place] ry artery of [place] heart without angina pectoris [I25.10] Chronic kidney disease, stage 3 (moderate) (HCC) [N18. 3] Fatigue, unspecified type [R53.83] Dizziness and giddiness [R42] Order(s):ECG B/O W INTERP (MED OFFICE) [ECG06] Order # : [id number] SURGICAL REQUEST - ELECTIVE [[id number]] Order #: [id number] 958Qty: 1 Prescriptions as of 08/25/2019 Sig: OFLOXACIN 0.3 % EYE DROPS INSTILL 1 DROP IN THE RIGHT E* LISINOPRIL 10 MG TABLET Take 1 tablet by mouth once d* METHOTREXATE SODIUM 2.5 MG TA* TAKE 3 TABLETS ONCE A W [facility] FAMOTIDINE 20 MG TABLET Take 1 tablet by mouth twice * LEVOTHYROXINE 150 MCG TABLET Take 1 tablet daily * ALLOPURINOL 300 MG TABLET Take 1 tablet by mouth once d* FINASTERIDE 5 MG TABLET Take 1 tablet by mouth once d* GABAPENTIN 300 MG CAPSULE Take 1 capsule by mouth cary y* PRAVASTATIN 40 MG TABLET Take 1 tablet by mouth daily * TAMSULOSIN 0.4 MG CAPSULE Take 1 capsule by mouth cary y* DONEPEZIL 10 MG TABLET Take 1 tablet by mouth daily * CLOPIDOGREL 75 MG TABLET Take 1 tablet by mouth once d * [place]-3 FATTY ACIDS 500 MG CA* Take 1 capsule by mouth once * NITROGLYCERIN 0.4 MG SUBLINGU* Dissolve 1 tablet under the t* FLUTICASONE PROPIONATE 50 MCG* Use 2 Sprays in each no stril * Patient taking differently: Use 2 Sprays in each nostr il * * POLYETHYLENE GLYCOL 3350 17 G* Take 17 g by mouth on ce daily* * PRESERVISION AREDS 7,160 UNIT* Take one(1) tablet da magi. * CLARITIN 10 MG TABLET Take one(1) tablet daily. * ASPIRIN 81 MG TABLET Take one (1) tablet daily . * MULTIVITAMIN TABLET Take one(1) tablet daily. Problem List As Of Date 08/25/2019 Noted Resolved Retention of urine, unspecified [R33.9] INVALID FOR* Bladder neck obstruction [N32.0] INVALID FOR* 6 BPH with obstruction/lower urinary tract sympto*INVALI D FOR* HYDRONEPHROSIS [N13.30] INVALID FOR*05/24/2006 Essential (primary) hypertension [I10] INVALID FOR* HYPERLIPIDEMIA [E78.5] INVALID FOR*03/17/2016 Atherosclerosis of coronary artery bypass graft*INVALI D FOR* ANEMIA NORMOCYTIC [D64.9] INVALID FOR* ABNORMAL GLUCOSE [R73.09] INVALID FOR*08/12/2015 Hyperuricemia [E79.0] INVALID FOR* Hypothyroidism [E03.9] INVALID FOR* PSORIATIC ARTHRITIS [L40.50] INVALID FOR*08/17/2017 Other hammer toe (acquired) [M20.40] INVALID FOR*08/17 Hallux valgus (acquired) [M20.10] INVALID FOR*03/17/20 16 Other atopic dermatitis and related conditions *INVALI D FOR*08/12/2015 Unspecified pruritic disorder [L29.9] INVALID FOR*02/21 ECZEMATOUS DERMATITIS NOS [L25.9] INVALID FOR*08/05/20 16 Other psoriasis [L40.8] INVALID FOR* XEROSIS///SEBACEOUS GLAND DIS NEC [L73.8] INVALID FOR* 03/18/2015 SOLAR LENTIGINES///DYSCHROMIA OTHER [L81.9] INVALID FO R*08/12/2015 Other seborrheic keratosis [L82.1] INVALID FOR* 015 ACTINIC DAMAGE///CHR SOLAR SKIN DAMAGE NOS [L57*INVALI D FOR*08/12/2015 Dyshidrosis [L30.1] INVALID FOR*08/05/2016 Hemorrhage of rectum and anus [K62.5] 08/05/2016 Benign neoplasm of skin of lower limb, includin*INVALI D FOR*08/05/2016 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] INVALID FOR*2009 Idiopathic peripheral neuropathy [G60.9] INVALID FOR* DM Neuro Manif Type II [E11.49] INVALID FOR*06/10/2010 OM (osteomyelitis) (HCC) [M86.9] INVALID FOR* 6 Closed fracture of metatarsal bone(s) [S92.309A]INVALI D FOR*08/05/2016 Abnormality of gait [R26.9] INVALID FOR*08/05/2016 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 Bradycardia [R00.1] INVALID FOR* Atherosclerosis of [place] coronary artery of na*INVALI D FOR* Chronic obstructive pulmonary disease with (acu*INVALI D FOR* Dizziness and giddiness [R42] INVALID FOR* Fatigue [R53.83] INVALID FOR* Gout [M10.9] INVALID FOR* Vasculitis (HCC) [I77.6] INVALID FOR* Visit Notes: >> Elen Allen Fri Aug 25, 2019 9:24 AM Status: Joan d Patient denies any cardiac complaints today. Elen Allen CMA Disposition: Return if symptoms worsen or fail to impr ove. Follow-up and Disposition History Recorded Letter Text Encounter Status:Closed by HOLLAND ORDONEZ MD on PROGRESS on 08-25-2019 PROGRESS HNO ID: [id number] [facility] Author: Holland [facility] Service: ? Author Type: Physician Type: Progress Notes Filed: 08/25/2019 8:15 PM Note Text: PRIMARY CARE PHYSICIAN: Jason Snider MD [address] [facility] [place] [address] REFERRING PHYSICIAN: Augusto Tran MD ([facility]) [address] [facility] [address] [id number] Patient Care Team: Jason Snider as PCP - General (Internal Medicine ) Augusto Tran as Specialty Supervisor [employer] (Cardiology) Kenan Mari as Specialty Supervisor [employer] (Pulmonary Disease) Lorne Andrew Jr. as Specialty Supervisor [employer] (Ophtha lmology) Aracelis Aceves as Specialty Supervisor [employer] (Podiatry) Claude He as Specialty Supervisor [employer] (Ce rebrovascular) CHIEF COMPLAINT: Evaluation of arrhythmia HISTORY OF PRESENT ILLNESS: Mr. Cortes is a 83 year old male who presents today wit h his for evaluation of bradycardia. He states that he has been experiencing fatigue and tiredness for a few years. This has progressively worsened and he notices that when he walks about a mile he feels wash ed out and has to rest 4. Of time. He and his walk 2 miles nearly e very day. They walk one mile to the local [employer] restaurant for break fast, then walk the one mile back home. He feels less able to do this acti vity than previously, and has some exertional shortness of breat h. He does have chronic lung disease (interstitial lung disease) and t here has been some question about whether the lung disease is contributin g to his symptoms. He states that his local physicians have not consider the lung disease to be sufficiently severe to account for his symptoms. He has been evaluated by a dredge pipe installer, Dr. Tran. Mr. Cortes has a hist ory of coronary artery disease, with coronary bypass surgery in 1996, intracoronary stent in 2010. Last year he underwent echocardiogram and car diac stress testing that were unremarkable. He denies chest pain, orthopne a, palpitations, PND, lightheadedness or syncope. I have confirmed and edited as necessary, the PFSH and ROS obtained by others. PAST MEDICAL HISTORY Diagnosis Date - Anal stenosis 04/05/2013 - ANEMIA NORMOCYTIC 07/21/2006 - CAD (coronary artery disease) two-vessel CABG 1996 ([facility]); PCI/stent LCX 2010 - CKD (chronic kidney disease) stage 3, GFR 30-59 ml/m in ([facility]) 08/11/2016 - Closed fracture of metatarsal bone(s) 05/14/2010 - Esophageal reflux - Hemorrhage of gastrointestinal tract, unspecified - Hemorrhage of rectum and anus - History of prediabetes 08/05/2016 - Hyperlipidemia - Hypertrophy of prostate with urinary obstruction and other lower urinary tract symptoms (LUTS) 03/19/2006 - HYPERURICEMIA 09/29/2006 - Idiopathic peripheral neuropathy 03/28/2010 - Internal hemorrhoids without mention of complication - Interstitial lung disease ([facility]) 05/18/2017 - Mild cognitive disorder 08/12/2015 - Mixed hyperlipidemia Hyperlipidemia - Occlusion and stenosis of carotid artery without men tion of cerebral infarction 07/08/2010 - OM (osteomyelitis) ([facility]) 04/03/2010 - PAC (premature atrial contraction) - Psoriasis and similar disorders arthritis - PSORIATIC ARTHRITIS 09/29/2006 - PVC (premature ventricular contraction) - Unspecified essential hypertension Essential hypertension - Unspecified hypothyroidism - Urethral stricture 04/04/2012 - Urinary retention 03/16/2013 PAST SURGICAL HISTORY Procedure Laterality Date - AMPUTATE TOE; IP JOINT 2009 Rt foot 4th toe - BUNIONECTOMY, LAPIDUS-TYPE Right 2010 Right foot - CARDIAC CATH 01/28/2011 normal LV systolic fxn; normal LM, occluded LAD; LCX 5 0% ostial, mid 80%; left PDA 50% prox; RCA small nondominant with 70% osti al stenosis; SVG-PDA occluded; VIZCARRA Y graft to LAD and diagonal branch canela nt; - CAROTID SURGERY Left 1997 CAROTID-garret-- left - CAROTID SURGERY Right 05/04/2014 RIGHT CAROTID - CATARACT EXTRACTION HX Bilateral 2016 - COLONOSCOP W/ OR W/O BRSH SPEC 08/10/2014 - CORONARY ARTERY BYPASS GRAFT 06/06/1997 CABG 2 vessel: VIZCARRA Y graft to LAD and diagonal branch ; [facility], Dr. Valenzuela - ECHOCARDIOGRAM 02/18/2018 normal LV systolic fxn; LVEF 60%; mild pHTN; no signif icant valvular abnormalities - HEMORRHOIDECTOMY 1962 - HOLTER 24 HR 07/14/2019 sinus rhythm, sinus bradycardia; min HR 33 bpm; max HR 98 bpm; avg HR 49 bpm - INSERT INTRACORONARY STENT 2010 PCI/stent to LCX - LASER GREENLIGHT PVP 2013 Prostate - LEXISCAN STRESS TEST - PAST SURGICAL HISTORY OF Right 2003 RIGHT LEG FRACTURE WITH RODS - PHARMACOLOGIC NUCLEAR STRESS 02/18/2018 no ischemia or scar - SD ANESTH,OPEN HEART; W/O PUMP OXYEGENATOR 1996 triple bypass - REMOVAL OF TONSILS,<12 Y/O 1941 Tonsillectomy - SIGMOIDOSCOPY FLEX DIAG 06/19/08 - TOTAL KNEE REPLACEMENT Right 05/02/2012 Knee replacement, total Right [facility]. Gentile [facility] - TRANSURETHRAL ELEC-SURG PROSTATECTOM 2005 TURP - VASECTOMY 1971 SOCIAL HISTORY Social History Tobacco Use - Smoking status: Never Smoker - Smokeless tobacco: Never Used Substance Use Topics - Alcohol use: No - Drug use: No FAMILY HISTORY Problem Relation Age of Onset - No Known Problems Mother from sepsis - Heart Father [place] - Diabetes Father - Heart Attack Father - other (ankylosing spondylosis) Sister ALLERGIES: ALLERGIES Allergen Reactions - Bactrim [Sulfametho* Rash, Hives, Other: See Comment s Elevated bilirubin - Cats - Gold Shots [Other] - Hyoscyamine Unknown - Metronidazole Unknown - Sesame Seed - Sulfa (Sulfonamide * Rash, Hives - Tree Nut Other: See Comments - Tree Nuts [Other] ANY NUT THAT GROWS ON TREES - Trimethoprim Rash, Hives MEDICATIONS: ofloxacin (OCUFLOX) 0.3 % ophthalmic solu tion, INSTILL 1 DROP IN THE RIGHT EYE EVERY 2 HOURS THE DAY BEFORE YOUR REJI OINTMENT AND THE DAY OF YOUR APPOINTMENT lisinopril (ZESTRIL, PRINIVIL) 10 mg tablet, Take 1 ta blet by mouth once daily. methotrexate 2.5 mg tablet, TAKE 3 TABLETS ONCE A WEEK famotidine (PEPCID) 20 mg tablet, Take 1 tablet by twice daily. levothyroxine (SYNTHROID) 150 mcg tablet, Take 1 table t daily Wednesday through Wednesday and take 1/2 tablet on Wednesday. allopurinol (ZYLOPRIM) 300 mg tablet, Take 1 tablet by mouth once daily. finasteride (PROSCAR) 5 mg tablet, Take 1 tablet by once daily. gabapentin (NEURONTIN) 300 mg capsule, Take 1 capsule by mouth daily at bedtime. pravastatin (PRAVACHOL) 40 mg tablet, Take 1 tablet by mouth daily at bedtime. tamsulosin ER (FLOMAX) 0.4 mg cap, Take 1 capsule by m outh daily at bedtime. donepezil (ARICEPT) 10 mg tablet, Take 1 tablet by melissa th daily at bedtime. clopidogrel (PLAVIX) 75 mg tablet, Take 1 tablet by mo uth once daily. [place]-3 Fatty Acids (FISH OIL) 500 mg cap, Take 1 caps ule by mouth once daily. nitroglycerin sublingual (NITROQUICK) 0.4 mg SL tablet , Dissolve 1 tablet under the tongue as needed. FOR CHEST PAIN. IF NO RELI EF CALL 911 fluticasone (FLONASE) 50 mcg/actuation nasal spray, Us e 2 Sprays in each nostril once daily. Rinse mouth after use. Polyethylene Glycol 3350 (MIRALAX) 17 gram/dose powder , Take 17 g by mouth once daily as needed. beta-carotene(a) w-c AND e/zn/cu(OCUVITE PRESERVISION TAB), Take one(1) tablet daily. CLARITIN 10 MG ORAL TAB, Take one(1) tablet daily. ASPIRIN 81MG TABLET, Take one (1) tablet daily . MULTIVITAMIN TABLET, Take one(1) tablet daily. REVIEW OF SYSTEMS: PAIN ASSESSMENT: Negative for pain, history of chronic pain, or current treatment for a chronic pain condition. GENERAL: Negative for: Weight loss or gain, Fever or C hills, Weakness and Sleep difficulties. HEENT: Positive for:Impaired Vision, Glasses and Heari ng Impairment , Negative for:Headache, Ringing in Ears, Nosebleeds, Po or Dental Care and Bleeding Gums NECK: Negative for: Swelling, Pain, Stiffness RESPIRATORY: Positive for: Shortness of breath , Negat charles for:Blood in Sputum GASTROINTESTINAL: Negative for: Trouble swallowing, He artburn, Change in bowel habits, Blood in stool, Dark black stools MUSCULOSKELETAL: Negative for: Muscle or joint pain, s tiffness, Joint swelling NEUROLOGIC/PSYCHIATRIC: Negative for: Weakness, Paraly sis, Numbness, Tingling, Tremor, Nervousness or anxiety, Depressed mo od, Memory loss SKIN: Negative for: Rash, Itching HEMATOLOGICAL/LYMPHATIC: Negative for: Easy bruising, Easy bleeding ENDOCRINE: Negative for: Heat or Cold Intolerance, Exc essive Sweating, Frequent Urination, Frequent Thirst PHYSICAL EXAMINATION: BP 140/66 Pulse 47 Resp 16 Ht 6' 0 (1.83m) Wt 175 lb 12.8 oz (79.7kg) SpO2 96% BMI 23.84 kg/(m2). General: In no acute distress. Skin: No clubbing, no cyanosis. Eyes: Extra ocular movements intact, Non-icteric scler ae Neck: no jugular venous distention, Lungs: some reduction in air exchange bilaterally; no wheezes or rhonchi Heart: Regular rhythm, S1, S2 normal, no rub; +bradyca rdia; +Gr I/ systolic murmur LSB Abdomen: Soft, nontender, bowel sounds normal Extremities: No peripheral edema Neuro: Oriented to person, place and time, alert, coop erative CARDIOVASCULAR MEDICINE TESTING: Electrocardiogram: Sinus bradycardia 42 bpm; borderlin e first-degree AV block (SD 200 ms); normal QRS duration 112 ms I have personally reviewed the Electrocardiogram. ASSESSMENT/PLAN: 1. Bradycardia - ICD9: 427.89, ICD10: R00.1 (primary d iagnosis) 2. Atherosclerosis of [place] coronary artery of [place] heart without angina pectoris - ICD9: 414.01, ICD10: I25.10 3. Chronic kidney disease, stage 3 (moderate) (HCC) - ICD9: 585.3, ICD10: N18.3 4. Fatigue, unspecified type - ICD9: 780.79, ICD10: R5 3.83 5. Dizziness and giddiness - ICD9: 780.4, ICD10: R42 IMPRESSION: Mr. Cortes has severe sinus bradycardia that is most li ann marie symptomatic. Symptoms would be the primary indication for cardiac p acing in this situation, such that if he was not considered to have symptoms then cardiac pacing would not be indicated. It is acknowled ged that it is challenging to determine the relative contributions of his medical conditions to his symptom, particularly with regards t o the chronic lung disease and the sinus bradycardia. It seems fairly vega ar that he is not having likely myocardial ischemia or heart failure as a cause of his symptoms. He states that he has been told by his local physicians including his oil distributor that the exertional shortn ess of breath and effort intolerance, fatigue are not likely to be cause d by the lung disease and is more likely to be caused by the bradyca rdia. I think this is a very reasonable conclusion and the sinus bradycar mercy and chronotropic incompetence seem to be sufficiently severe to be expe cted to potentially cause symptoms. I had a detailed discussion with Mr. Cortes and his wif e regarding the situation with his heart rate. As noted above, I think that it is very likely that the sinus bradycardia is symptomatic, and that he would have a reasonable chance of having improve quality of life wi pacemaker implantation. I did inform him that the type of bradyc ardia that he has is not typically life-threatening and is not unpredictabl e like the bradycardia from heart block. So I think that we do no t have an urgent situation on her hands where we need to make a quick d ecision. I had a detailed discussion with Mr. Cortes regarding m y evaluation and recommendations. After our discussion, Mr. Cortes expre ssed his understanding and I answered all his questions to his apparent satisfaction. He seems inclined to want to proceed wit h a pacemaker. A dual-chamber pacemaker would be indicated to maintain AV synchrony. He has evidence of A-V conduction disease with borderline fir st-degree AV block, so at his age I would not recommend a single-chamber a trial pacemaker system. Mr. Cortes states that he has an appointment wi his oil distributor, Dr. Mari, sometime very soon and woul d like to get his opinion about the degree of contribution of the lung d isease to his symptoms. I told Mr. Cortes that if Dr. Mari feels th at the symptoms are not substantially attributable to the lung disease the n I recommend proceeding with pacemaker implantation, as the expecta tion would be that he would have improvement in quality of life. INFORMED CONSENT The risks, benefits and anticipated outcomes of the pr ocedure, the risks and benefits of the alternatives to the procedure and the roles and tasks of the personnel to be involved were discussed with e patient. Consent for the procedure and agreement to proceed has been ob tained. I verify that I personally obtained the consent. PLAN AND RECOMMENDATIONS: I will plan on pacemaker implantation unless we find f rom Dr. Mari that the lung disease is primarily responsible for Mr. Germaine noguera's symptoms. I will have my office contact Mr. Cortes to follow up with him about this situation in the next week or so, after the appointmen t with Dr. Mari. Holland Ordonez MD August 25, 2019 8:09 PM Vital Signs Date Time Vital Sign Value Performing Clinician Facilit y 11-11-2022 Body temperature 96.91 [degF] Geni Migdalia MICE RAISER.[facility] 15:0 Work Phone: 11-11-2022 Body weight 85.73 kg Geni Migdalia MICE RAISER.[facility]: Work Phone: 11-11-2022 Diastolic blood 80 mm[Hg] Geni Migdalia [facility]IS[facility] 15:050 pressure Work Phone: 11-11-2022 Heart rate 60 /min Geni Migdalia [facility]ISER[facility]: Work Phone: 11-11-2022 Respiratory rate 16 /min Geni Migdalia MICE RAISER.[facility] 15: Work Phone: 11-11-2022 SaO2% (BldA) [Mass 98 % Geni Migdalia MICE RAISER.[facility] 15:050 fraction] Work Phone: 11-11-2022 Systolic blood 142 mm[Hg] Geni Migdalia MICE RAISER.[facility] 15:050 pressure Work Phone: 09-17-2022 Body temperature 97.5 [degF] Jason Snider MD [facility] 18: Work Phone: 09-17-2022 Body weight 80.74 kg Jason lai [facility] 18:0 Work Phone: 09-17-2022 Diastolic blood 84 mm[Hg] Jason Snider MD [facility] 18:0400 pressure Work Phone: 09-17-2022 Heart rate 60 /min Jason lai [facility] [id number] Work Phone: 09-17-2022 Respiratory rate 16 /min [facility] [id number] Work Phone: 09-17-2022 SaO2% (BldA) [Mass 98 % Jason Snider MD [facility] [id number] fraction] Work Phone: 09-17-2022 Systolic blood 134 mm[Hg] [facility] [id number] pressure Work Phone: 05-29-2022 Body weight 79.38 kg Jason lai [facility] [id number] Work Phone: 05-29-2022 Diastolic blood 80 mm[Hg] Jason [facility] [id number] pressure Work Phone: 05-29-2022 Heart rate 60 /min Jason lai [facility] [id number] Work Phone: 05-29-2022 SaO2% (BldA) [Mass 96 % Jason Snider MD [facility] [id number] fraction] Work Phone: 05-29-2022 Systolic blood 136 mm[Hg] [facility] [id number] pressure Work Phone: Encounters Encounter Date Encounter Type Care Provider Facility Start: 01-06-2023 ambulatory JASON SNIDER Facility:[facility] End: 01-06-2023 Clinic Hospital Start: 01-06-2023 Patient encounter Aracelis Aceves [facility]iat[facility] End: 01-06-2023 procedure Work Phone: Comment on above: Hyperkeratosis (Primary Dx); Onychomycosis; Amputation of little toe, ri ght, subsequent encounter ([facility]); PAD (peripheral artery disea se) ([facility]); Hammer toes of both feet Start: 11-11-2022 ambulatory JASON SNIDER Facility:[facility] End: 11-11-2022 Hospital Start: 11-11-2022 ambulatory ARACELISTAMMY MCGILLLOW Facility:[facility] End: 11-11-2022 Hospital Start: 11-11-2022 Patient encounter Geni Negron JILL[facility] End: 11-11-2022 procedure Work Phone: Comment on above: Injury to fingernail of righ t hand, initial encounter (Primary Dx) Start: 11-11-2022 Patient encounter procedure Aracelis Aceves P odiatry End: 11-11-2022 Work Phone: Comment on above: Hyperkeratosis (Primary Dx); Onychomycosis; Amputation of little toe, ri ght, subsequent encounter (HCC); PAD (peripheral artery disea se) (HCC); Hammer toes of both feet Start: 11-06-2022 ambulatory JASON SNIDER Facility:[facility] End: 11-06-2022 Hospital Start: 11-02-2022 ambulatory JASON SNIDER Facility:[facility] End: 11-02-2022 Hospital Start: 09-25-2022 Telephone [facility] [place] Work Phone: Comment on above: Results Start: 09-22-2022 Refill Jason Snider MD Internal [facility] [place] Work Phone: Comment on above: Refill Request tamsulosin refill needed Start: 09-17-2022 ambulatory JASON SNIDER Facility:[facility] End: 09-17-2022 Hospital Start: 09-17-2022 Patient encounter Jason Snider MD [employer] [facility] [place] End: 09-17-2022 procedure Work Phone: Comment on above: 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 (HCC) (Primary Dx); Essential hypertension; Idiopathic peripheral neurop athy Start: 09-16-2022 ambulatory ARACELIS ACEVES Facility:[facility] End: 09-16-2022 Hospital Start: 09-16-2022 Patient encounter Arcaelis Aceves Podiatry End: 09-16-2022 procedure Work Phone: Comment on above: Hyperkeratosis (Primary Dx) Start: 08-25-2022 ambulatory Jason Snider MD [facility] [place] Work Phone: Comment on above: 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 [employer] charles Start: 08-14-2022 ambulatory ALEIDA THOMAS Facility:[id number] End: 08-14-2022 Start: 08-14-2022 ambulatory Aleida Thomas OT/L [facility] [place] End: 08-14-2022 [place] Comment on above: Late onset Alzheimer's demen tia without behavioral disturbance (HCC) (Primary Dx) Start: 08-05-2022 ambulatory ARACELIS ACEVES Facility:[facility] End: 08-05-2022 Hospital Start: 08-05-2022 Patient encounter Aracelis Aceves [facility]iat[facility] End: 08-05-2022 procedure Work Phone: Comment on above: Hyperkeratosis (Primary Dx); Hammer toes of both feet; Onychomycosis; Amputation of little toe, ri ght, subsequent encounter (HCC) Start: 07-13-2022 ambulatory Jason Snider MD [facility] Work Phone: Start: 07-13-2022 Patient encounter Jason Snider MD [employer] Medicine procedure Work Phone: [place] Comment on above: Appointment Start: 07-05-2022 ambulatory Jason Snider MD [facility] [place] Work Phone: Comment on above: Safety concerns for Dad/Art Start: 06-24-2022 ambulatory ARACELIS ACEVES Facility:[facility] End: 06-24-2022 Hospital Start: 06-24-2022 Patient encounter Aracelis Aceves [facility]iat[facility] End: 06-24-2022 procedure Work Phone: Comment on above: Hyperkeratosis (Primary Dx); PAD (peripheral artery disea se) (HCC); Hammer toes of both feet Start: 05-29-2022 ambulatory JASON SNIDER Facility:[facility] End: 05-30-2022 Hospital Start: 05-29-2022 Patient encounter Jason Snider MD [employer] [facility] [place] End: 05-29-2022 procedure Work Phone: Comment on above: Asthenia (Primary Dx); Essential hypertension; Dizziness; 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 (HCC); Mild protein-calorie malnutr ition (HCC); Stage 3a chronic kidney dise ase (HCC); Vasomotor rhinitis Start: 05-18-2022 ambulatory JASON SNIDER Facility:[facility] End: 05-18-2022 Hospital Start: 05-13-2022 ambulatory Jason Snider MD Internal [facility] [place] End: 05-13-2022 Work Phone: Comment on above: Recent ongoing medical shannan rns Start: 05-13-2022 Patient encounter procedure Aracelis Aceves P odiatry End: 05-13-2022 Work Phone: Comment on above: Hyperkeratosis (Primary Dx); PAD (peripheral artery disea se) ([facility]); Hammer toes of both feet; Onychomycosis; Amputation of little toe, ri ght, subsequent encounter ([facility]) Start: 04-05-2022 ambulatory Jason Snider MD [facility] [place] Work Phone: Comment on above: Immunizations update and que stion Start: 03-31-2022 ambulatory ARACELIS ACEVES Facility:[facility] End: 03-31-2022 Hospital Start: 03-31-2022 Patient encounter Aracelis Aceves Podiatry End: 03-31-2022 procedure Work Phone: Comment on above: Hyperkeratosis (Primary Dx); PAD (peripheral artery disea se) ([facility]); Hammer toes of both feet Start: 03-27-2022 Refill Jason Snider MD [facility] [place] Work Phone: Comment on above: Refill Request Start: 02-17-2022 ambulatory ARACELIS ACEVES Facility:[facility] End: 02-17-2022 Hospital Start: 02-17-2022 Patient encounter Aracelis Aceves [facility]iat[facility] End: 02-17-2022 procedure Work Phone: Comment on above: Hammer toes of both feet (Pr imary Dx); Hyperkeratosis; PAD (peripheral artery disea se) (HCC) Start: 02-17-2022 Telephone encounter Jason Snider MD Inte rnal Medicine Work Phone: [place] Comment on above: Release Of Medical Records Start: 01-16-2022 ambulatory JASON SNIDER Facility:[facility] End: 01-16-2022 Hospital Start: 01-09-2022 ambulatory JASON SNIDER Facility:[facility] End: 01-09-2022 Hospital Start: 06-15-2021 ambulatory Jason Snider MD [facility] Work Phone: Start: 06-15-2021 Patient encounter Jason Snider MD [employer] Medicine [place] procedure Work Phone: Comment on above: RE: Upcoming Appointment Lb conte Plan of Treatment Date Care Activity Detail Author Start: 08-17-2027 Urine microalbumin profile DTAP,TDAP,TD (1 - T dap) [facility] Comment on above: Postponed from 08/18/2017 (P ostponed To Appropriate Date) Start: 05-18-2025 DIABETES SCREEN DIABETES SCREEN [facility] ic Start: 01-09-2025 DIABETES SCREEN DIABETES SCREEN [facility] ic Start: 11-02-2023 Hepatitis B surface LDL CHOLESTEROL [facility] antibody level Start: 11-22-2022 ADVANCE DIRECTIVE ADVANCE DIRECTIVE [facility] DISCUSSION DISCUSSION Start: 07-31-2022 Hepatitis B surface LDL CHOLESTEROL [facility] antibody level Start: 07-29-2022 COVID-19 VACCINE (5 - COVID-19 VACCINE (5 - Cl [facility] Booster for Moderna Booster for Moderna series) series) Start: 07-23-2022 Influenza vaccination INFLUENZA (#1) [facility] Start: 05-15-2022 CBC panel - Blood by CBC Lab Routine [facility] End: 07-15-2022 Automated count General weakness Work Phone: Expected: 05/15/2022, Expires: 07/15/2022 Comment on above: Expected: 05/15/2022, s: 07/15/2022 Start: 05-15-2022 Cobalamin (Vitamin B12) [facility]LO[facility] End: 07-15-2022 [Mass/volume] in Serum Lab Routine General Work Phone: or Plasma weakness Expected: 05/15/2022, Expires: 07/15/2022 Comment on above: Expected: 05/15/2022, s: 07/15/2022 Start: 05-15-2022 Comprehensive metabolic COMP METABOLIC PANEL C [facility] [place] [facility] End: 07-15-2022 2000 panel - Serum or Lab Routine General Work P rod: Plasma weakness Expected: 05/15/2022, Expires: 07/15/2022 Comment on above: Expected: 05/15/2022, s: 07/15/2022 Start: 05-15-2022 Thyrotropin TSH BLD Lab Routine [facility] End: 07-15-2022 [Units/volume] in Serum General weakness Work Ph one: or Plasma Expected: 05/15/2022, Expires: 07/15/2022 Comment on above: Expected: 05/15/2022, s: 07/15/2022 Start: 01-09-2022 COVID-19 VACCINE (4 - COVID-19 VACCINE (4 - Cl [facility] Booster for Moderna Booster for Moderna series) series) Start: 11-22-2021 ADVANCE DIRECTIVE ADVANCE DIRECTIVE [facility] DISCUSSION DISCUSSION [facility] Immunizations Immunization Date Immunization Notes Care Provider Facility 08-11-2022 influenza (aIIV4) Jason Snider MD [facility] vaccine, age 65+ yr, Work Phone: Work Phone: quadrivalent, PF (FLUAD QUADRIVALENT) 08-07-2021 influenza, high-dose, Jason Snider MD [facility] quadrivalent vaccine Work Phone: Work Phone: (FLUZONE HIGH DOSE QUADRIVALENT) 01-29-2021 zoster vaccine Jason Snider MD [facility] recombinant Work Phone: 01-10-2021 COVID-19 vaccine, full Jason Lai [facility] dose (MODERNA) Work Phone: Work Phone: 12-12-2020 COVID-19 vaccine, full Jason Lai [facility] dose (MODERNA) Work Phone: Work Phone: 08-10-2020 influenza, injectable, Jason Lai [facility] quadrivalent, Work Phone: Work Phone: preservative free 08-10-2020 zoster vaccine Jason Snider MD [facility] recombinant Work Phone: W ork Phone: 09-04-2019 influenza, seasonal, Jason Snider MD [facility] injectable, preservative Work Phone: Work Phone: free 08-29-2018 influenza, high dose Jason Snider MD [facility] seasonal, Work Phone: W ork Phone: preservative-free 09-07-2017 influenza, seasonal, Jason Snider MD [facility] injectable, preservative Work Phone: Work Phone: free 08-17-2017 influenza, high dose Jason Snider MD [facility] seasonal, Work Phone: preservative-free 08-17-2017 tetanus and diphtheria Jason Lai [facility] toxoids, adsorbed, Work Phone: preservative free, for adult use (5 Lf of tetanus toxoid and 2 Lf of diphtheria toxoid) 08-05-2016 influenza, high dose Jason Snider MD [facility] seasonal, Work Phone: preservative-free 10-31-2015 influenza, high dose Jason Snider MD [facility] seasonal, Work Phone: W ork Phone: preservative-free 08-12-2015 pneumococcal conjugate Jason Lai [facility] vaccine, 13 valent Work Phone: 08-03-2013 influenza virus vaccine, Jason Snider MD [facility] unspecified formulation Work Phone: Work Phone: 08-10-2011 influenza, seasonal, Jason Snider MD [facility] injectable Work Phone: W ork Phone: 07-17-2011 zoster vaccine, live Jason Snider MD [facility] Work Phone: W ork Phone: 08-21-2010 influenza, seasonal, Jason Snider MD [facility] injectable Work Phone: W ork Phone: 11-02-2009 novel [id number], Jason Snider MD [facility] injectable Work Phone: W ork Phone: 07-21-2006 tetanus and diphtheria Jason Lai [facility] toxoids, adsorbed, Work Phone: preservative free, for adult use (2 Lf of tetanus toxoid and 2 Lf of diphtheria toxoid) 08-22-2004 pneumococcal Jason Snider MD [facility] polysaccharide vaccine, Work Phone: 23 valent 10-12-2002 hepatitis A vaccine, Jason Snider MD [facility] unspecified formulation Work Phone: Work Phone: 10-12-2001 hepatitis A vaccine, Jason Snider MD [facility] unspecified formulation Work Phone: Work Phone: 10-12-2001 tetanus and diphtheria Jason Lai [facility] toxoids, adsorbed, Work Phone: Work Phone: preservative free, for adult use (2 Lf of tetanus toxoid and 2 Lf of diphtheria toxoid) Payers Date Payer Category Payer Medicare AETNA MEDICARE AETNA 0 MEDICARE PPO [id number] 2021-Present [id number] [address] [place] [address] PPO 2021 Medicare A[employer]NA MEDICARE AETNA [id number] MEDICARE PPO [id number] 2021-Present [phone] [address] [place] [address] PPO 2014 Medicare [id number] Social History Date Type Detail Facility Start: 06-29-2011 Tobacco smoking status Never smoked tobacco [facility] Work Phone: Start: 02-17-2022 Alcohol intake Current non-drinker of [facility] End: 01-06-2023 alcohol (finding) Start: 08-26-2020 History SDOH Alcohol 1 [facility] End: 09-15-2022 Frequency Start: 08-26-2020 History SDOH Alcohol Std 98 [facility] Dr[facility] Start: 08-08-2020 History SDOH Social 3 [facility] End: 09-15-2022 Connections Phone Start: 08-08-2020 History SDOH Social 4 [facility] End: 09-23-2020 [facility] Start: 09-23-2020 History SDOH Physical 6 [facility] Activity DPW Start: 08-08-2020 History SDOH Stress 2 [facility] End: 09-15-2022 Start: 08-08-2020 Education 18 [facility] ic Start: 1935 Sex Assigned At Male [facility] Start: 02-07-2022 Exposure to SARS-CoV-2 Not sure Tony [facility] End: 09-16-2022 (event) Start: 06-29-2011 Tobacco use and exposure Smokeless tobacco [facility] non-user Start: 09-15-2022 History SDOH Alcohol Std 0 [facility] Drinks Clinical Notes 02-03-2020 to 01-06-2023 Aracelis Hannahkaci - 01/06/2023 2:38 PM Edie Garcia LPN - 01/06/2023 2:32 PM Henny Negron APRN.CNP - 11/11/2022 3:12 PM Edie Garcia LPN - 11/11/2022 2:21 PM ESTPatient Instructions Note Date & Type Note Facility 01-06-2023 Note HNO ID: [id number] [facility] Author: Aracelis Aceves [place] Service: ? Author Type: Physician Type: Progress Notes Filed: 01/06/2023 7:25 PM Note Text: Subjective: Patient presents to clinic c /o painful toenails. They state that the nails are especially painful wi th shoe gear and pressure. Patient presents to clinic for follow-up callus of right 5th metatarsal and left 2nd toe. No other pedal complai nts at this time. Patient states no change in medications or medical history since last visit. Objective: Patient presents to clinic am bulating in new balance Vasc: DP and PT pulses are decresed bila teral. CFT is less than 5 seconds bilateral. Skin temperature is warm to c ool proximal to distal bilateral. There is mild edema or varicosities note d. Neuro: Protective sensation is absent to the foot and toes when tested with the 5.07 SWM bilateral. Vibratory s ensation is absent at the hallux IPJ bilateral. The hallux is downgoing b ilateral. Derm: Nails 1-5 left and 1-3 right are d iscolored-yellow, thick, crumbly, dystrophic and with subungal debris. Ski n is of normal turgor, texture and hair growth is absent bilateral. The re is minimal callus of right 5th metatarsal and left 2nd toe. no ulcerati ons, scars, verruca or other lesions noted. Ortho: Muscle strength is 5/5 for all pe dee dee groups tested. Ankle joint DF is decreased with the knee extended with no pain or crepitus noted. 1st MPJ ROM is decreased bilateral. There is amputation of right 4th and 5th toe Assessment: (L85.9) Hyperkeratosis (primary encounte r diagnosis) (B35.1) Onychomycosis (S98.131D) Amputation of little toe, rig ht, subsequent encounter ([facility]) (I73.9) PAD (peripheral artery disease) ([facility]) (M20.41, M20.42) Hammer toes of both fee t Plan: Patient was seen and evaluated. Callus very minimal on exam. Continue wi th wider shoes as these appear to be helping. Callus reduced with dremmel Toenails 1-5 left and 1-3 right debrided in length and thickness. Q7 modifier F/u in 2 months Aracelis MIGUEL Aceves 01-06-2023 Note HNO ID: [id number] [facility] Author: Luh Garcia LPN [place] Service: ? Author Type: LICENSED NURSE Type: Progress Notes Filed: 01/06/2023 7:25 PM Note Text: AMB ROOMING INTAKE FLOWSHEET DATA Patient presents with: Right Foot - Established Patient, Follow Up Luh Garcia LPN 01-06-2023 History of Present [facility] illness Narrative Subjective: Patient presents to clinic c/o painful toenails. They state that the nails are especially painful with shoe gear and pressure. Patient presents to clinic for follow-up callus of right 5th me tatarsal and left 2nd toe. No other peda l complaints at this time. Patient states no change in medications or medical history since last visit. Objective: Patient presents to clinic am bulating in new balance Vasc: DP and PT pulses are d ecresed bilateral. CFT is less than 5 seconds bilateral. Skin temperature is warm to cool proximal to distal bilateral. There is mild edema or varicosities noted. Neuro: Protective sensation is absent to the foot and toes when tested with the 5.07 SWM bilateral. Vibratory sensation is absent at the hallux IPJ bilateral. The hallux is downgoing bilateral. Derm: Nails 1-5 left and 1-3 right are discolored-yellow, thick, crumbly, dystrophic and with subungal debris. Skin is of normal turgor, texture and hair growth is absent bilateral. There is minimal kelsi patricia of right 5th metatarsal and left 2nd toe. no ulcerations, scars, verruca or other lesions noted. Ortho: Muscle strength is 5/ 5 for all pedal groups tested. Ankle joint DF is decreased with the knee extended with no pain or crepitus noted. 1st MPJ ROM is decreased bilateral. There is amputation of right 4th and 5th toe Assessment: (L85.9) Hyperkeratosis (primary encounte r diagnosis) (B35.1) Onychomycosis (S98.131D) Amputation of little toe, rig ht, subsequent encounter ([facility]) (I73.9) PAD (peripheral artery disease) ([facility]) (M20.41, M20.42) Hammer toes of both fee t Plan: Patient was seen and evaluated. Callus very minimal on exam. Continue with wider shoes as these appear to be helping. Callus reduced with dremmel Toenails 1-5 left and 1-3 right debrided in length and thickness. Q7 modifier F/u in 2 months Aracelis Aceves DPM Formatting of this note might be differe nt from the original. AMB ROOMING INTAKE FLOWSHEET DATA Patient presents with: Right Foot - Established Patient, Follow Up Luh Garcia LPN documented in this encounter 11-11-2022 Note HNO ID: [id number] [facility] Author: Geni Negron APRN.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 [place] Service: ? Author Type: Nurse Practitioner Type: Progress Notes Filed: 11/11/2022 3:16 PM Note Text: Subjective The history is provided by the patient a nd the spouse. No conference interpreter was used. HPI Navid Cortes is a 87 year old male who presents today for CC of fingernail that needs trimmed. Patient w as seen today in podiatry and when putting shoes back on caught finger nail and needed it trimmed. No injury to nail bed. BP 142/80 Pulse 60 Temp 36.1 ?C (96. 9 ?F) Resp 16 Wt 85.7 kg (189 lb) SpO2 98% BMI 27.12 kg/m? 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 ANEMIA NORMOCYTIC 07/21/2006 Bradycardia 10/24/2018 CAD (coronary artery disease) two-vessel CABG 1996 ([facility]); PCI/stent LCX 2010 Carotid stenosis, asymptomatic 03/23/2017 Chronic kidney disease, stage 3 (moderat e) 08/11/2016 CKD (chronic kidney disease) stage 3, GF R 30-59 ml/min ([facility]) 08/11/2016 Closed fracture of metatarsal bone(s) Cognitive disorder 08/12/2015 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 ([facility]) 04/04/2021 Esophageal reflux Hemorrhage of rectum and anus History of prediabetes 08/05/2016 Hyperlipidemia Hypertensive kidney disease with stage 3 a chronic kidney disease ([facility]) 11/04/2022 Hypertrophy of prostate with urinary obs truction and other lower urinary tract symptoms (LUTS) 03/19/2006 HYPERURICEMIA 09/29/2006 Idiopathic peripheral neuropathy 0 Internal hemorrhoids without mention of complication Interstitial lung disease ([facility]) 7 Mixed hyperlipidemia Hyperlipidemia Moderate aortic valve stenosis 2 Occlusion and stenosis of carotid artery without mention of cerebral infarction 07/08/2010 OM (osteomyelitis) ([facility]) 04/03/2010 Osteomyelitis of fifth toe of right foot ([facility]) 01/23/2020 PAC (premature atrial contraction) 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 cardiac pacemaker 09/22/2019 BOLD Guidance dual-chamber pacemaker system; indication: symptomatic bradycardia due to sinus node dysfunctio n; system will be MRI conditional after 6 weeks post implant Psoriasis and similar disorders arthritis PSORIATIC ARTHRITIS 09/29/2006 PVC (premature ventricular contraction) Sinus node dysfunction ([facility]) 09/22/2019 Unspecified essential hypertension Essential hypertension Unspecified hypothyroidism Urethral stricture 04/04/2012 Urinary retention 03/16/2013 Vasculitis ([facility]) 04/01/2017 I have confirmed and edited as necessary , the [facility] Review of Systems Constitutional: Negative for chills and fever. Musculoskeletal: Negative for joint pain and myalgias. Skin: Negative for itching and rash. Tear in fingernail All other systems reviewed and are negat charles. Objective Physical Exam Vitals and nursing note reviewed. Pulmonary: Effort: Pulmonary effort is normal. Musculoskeletal: Hands: Comments: Tear at inner corner, nail tri mmed, no tear into nail Skin: General: Skin is warm and dry. Neurological: Mental Status: He is alert and oriented to person, place, and time. Psychiatric: Mood and Affect: Affect normal. ASSESSMENT/PLAN: 1. Injury to fingernail of right hand, i nitial encounter - ICD9: 959.5, ICD10: S69.91XA Trimmed nail without difficulty Keep clean, put bandaid on to protect wi th antibiotic ointment. Advise to trim all nails. Diagnosis and treatment plan were discus sed and questions were answered to the patient's satisfaction. Pt acknowled ged understanding of concepts and follow up plan. Specific signs and symptoms that would i ndicate the need for higher level of care were discussed in detail warrant ing prompt ER evaluation. Geni Negron APRN.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 11-11-2022 Note HNO ID: [id number] [facility] Author: Luh Garcia LPN [place] Service: ? Author Type: LICENSED NURSE Type: Progress Notes Filed: 11/11/2022 2:22 PM Note Text: Per Dr. Aceves, Navid was provided wi th universal sleeve, and instructed/educated in its application, wear, and care. All questions were answered, and patient was able to [facility] competence with the necessary skills to utilize the above eq uipment. Luh Garcia LPN 11-11-2022 Note HNO ID: [id number] [facility] Author: Aracelis Aceves [place] Service: ? Author Type: Physician Type: Progress Notes Filed: 11/11/2022 2:13 PM Note Text: Subjective: Patient presents to clinic c /o painful toenails. They state that the nails are especially painful wi th shoe gear and pressure. Complains of painful callus to right 5th metatarsal. No other pedal complaints at this time. Patient states no change in medications or medical history since last visit. Objective: Patient presents to clinic am bulating in tennis shoes Vasc: DP and PT pulses are nonpalpable b ilateral. CFT is less than 5 seconds bilateral. Skin temperature is w arm to cool proximal to distal bilateral. There is moderate edema or va ricosities noted. Neuro: Protective sensation is absent to the foot and toes when tested with the 5.07 SWM bilateral. Vibratory s ensation is absent at the hallux IPJ bilateral. The hallux is downgoing b ilateral. Derm: Nails 1-5 left and 2-3 right are d iscolored-yellow, thick, crumbly, dystrophic and with subungal debris. Ski n is of normal turgor, texture and hair growth is absent bilateral. The re are callus to right 5th metatarsal, right first metatarsal. No o ther sores or ulcerations, scars, verruca or other lesions noted. Ortho: Muscle strength is 5/5 for all pe dee dee groups tested. Ankle joint DF is decreased with the knee extended with no pain or crepitus noted. 1st MPJ ROM is decreased bilateral. Amputati on of right 4th and 5th toe. Assessment: (L85.9) Hyperkeratosis (primary encounte r diagnosis) (B35.1) Onychomycosis (S98.131D) Amputation of little toe, rig ht, subsequent encounter ([facility]) (I73.9) PAD (peripheral artery disease) ([facility]) (M20.41, M20.42) Hammer toes of both fee t Plan: Patient was seen and evaluated. Nails 1-5 left and 2-3 right were debrid ed in length and thickness. Q7 modifier Callus reduced to right 5th metatarsal a nd right first metatarsal with 15 blade. In order to perform a complete ph ysical exam, limited shaving of callus area was performed. This incident al service is integral to the evaluation and management visit in order to appropriately manage and treat the patient (for their complaint or for this visit). Will provide patient with gel padding to prevent rubbing on 5th metatarsal right foot. Recommend he return to his p rior new balance as these shoes were wider and led to less callus format ion. F/u in 5-6 weeks MIGUEL Plata DPM 11-11-2022 Note HNO ID: [id number] [facility] Author: Aracelis Aceves [place] Service: ? Author Type: Physician Type: Progress Notes Filed: 11/11/2022 2:13 PM Note Text: See above 11-11-2022 Note HNO ID: [id number] [facility] Author: Luh Garcia LPN [place] Service: ? Author Type: LICENSED NURSE Type: Progress Notes Filed: 11/11/2022 2:13 PM Note Text: AMB ROOMING INTAKE FLOWSHEET DATA Pain Pain Level: 3 Pain Location: Foot-Right Description: Sore Duration Amount of Time: 3 Duration Units: Days Frequency: Intermittent Intervention/Comfort measure: Reposition , Relaxation Patient presents with: Right Foot - Established Patient, Follow Up, Pain Left Foot - Established Patient, Follow Up Luh Garcia LPN 11-11-2022 History of Present [facility] illness Narrative Images from the original note were not i ncluded. Subjective The history is provided by t he patient and the spouse. No conference interpreter was used. PIO Cortes is a 87 y ear old male who presents today for CC of fingernail that needs trimmed. Patient was seen today in podiatry and when putting shoes back on caught fingernail and needed it trimmed. No injury to nail bed. BP 142/80 Pulse 60 Temp 36.1 C (96.9 F) Resp 16 Wt 85.7 kg (189 lb) SpO2 98% BMI 27.12 kg/m 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 ANEMIA NORMOCYTIC 07/21/2006 Bradycardia 10/24/2018 CAD (coronary artery disease) two-vessel CABG 1996 ([facility]); PCI/stent LCX 2010 Carotid stenosis, asymptomatic 03/23/2017 Chronic kidney disease, stage 3 (moderat e) 08/11/2016 CKD (chronic kidney disease) stage 3, GF R 30-59 ml/min ([facility]) 08/11/2016 Closed fracture of metatarsal bone(s) Cognitive disorder 08/12/2015 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 ([facility]) 04/04/2021 Esophageal reflux Hemorrhage of rectum and anus History of prediabetes 08/05/2016 Hyperlipidemia Hypertensive kidney disease with stage 3a chronic kidney disease ([facility]) 11/04/2022 Hypertrophy of prostate with urinary obstruction and other lower urinary tract symptoms (LUTS) 03/19/2006 HYPERURICEMIA 09/29/2006 Idiopathic peripheral neuropathy 0 Internal hemorrhoids without mention of complication Interstitial lung disease ([facility]) 7 Mixed hyperlipidemia Hyperlipidemia Moderate aortic valve stenosis 2 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 07/08/2010 OM (osteomyelitis) ([facility]) 04/03/2010 Osteomyelitis of fifth toe of right foot ([facility]) 01/23/2020 PAC (premature atrial contraction) 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 cardiac pacemaker 09/22/2019 BOLD Guidance dual-chamb er pacemaker system; indication: symptomatic bradycardia due to sinus node dysfunction; system will be MRI conditional after 6 weeks post implant Psoriasis and similar disorders arthritis PSORIATIC ARTHRITIS 09/29/2006 PVC (premature ventricular contraction) Sinus node dysfunction ([facility]) 09/22/2019 Unspecified essential hypertension Essential hypertension Unspecified hypothyroidism Urethral stricture 04/04/2012 Urinary retention 03/16/2013 Vasculitis ([facility]) 04/01/2017 I have confirmed and edited as necessary , the [facility] Review of Systems Constitutional: Negative for chills and fever. Musculoskeletal: Negative for joint pain and myalgias. Skin: Negative for itching and rash. Tear in fingernail All other systems reviewed and are negat charles. Objective Physical Exam Vitals and nursing note reviewed. Pulmonary: Effort: Pulmonary effort is normal. Musculoskeletal: Hands: Comments: Tear at inner corner, nail tri mmed, no tear into nail Skin: General: Skin is warm and dry. Neurological: Mental Status: He is alert and oriented to person, place, and time. Psychiatric: Mood and Affect: Affect normal. ASSESSMENT/PLAN: 1. Injury to fingernail of r ight hand, initial encounter - ICD9: 959.5, ICD10: S69.91XA Trimmed nail without difficulty Keep clean, put bandaid on to protect wi th antibiotic ointment. Advise to trim all nails. Diagnosis and treatment plan were discussed and questions were answered to the patient's satisfaction. Pt acknowledged understanding of concepts and follow up plan. Specific signs and symptoms that would indicate the need for higher level of care were discussed in detail warranting prompt ER evaluation. Geni Negron APRN.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 documented in this encounter 11-11-2022 History of Present [facility] illness Narrative Per Dr. Aceves, Navid was provided with universal sleeve, and instructed/educated in its application, wear, and care. All questions were answered, and patient was able to demonstrate competence with the necessary skills to utilize the abov e equipment. Luh Garcia LPN Formatting of this note might be differe nt from the original. Subjective: Patient presents to clinic c/o painful toenails. They state that the nails are especially painful with shoe gear and pressure. Complains of painful callus to right 5th metatarsal. No other pedal complaints at this time. Patient states no change in medications or medical history since last visit. Objective: Patient presents to clinic am bulating in tennis shoes Vasc: DP and PT pulses are n onpalpable bilateral. CFT is less than 5 seconds bilateral. Skin temperature is warm to cool proximal to distal bilateral. There is moderate edema or varicosities noted. Neuro: Protective sensation is absent to the foot and toes when tested with the 5.07 SWM bilateral. Vibratory sensation is absent at the hallux IPJ bilateral. The hallux is downgoing bilateral. Derm: Nails 1-5 left and 2-3 right are discolored-yellow, thick, crumbly, dystrophic and with subungal debris. Skin is of normal turgor, texture and hair growth is absent bilateral. There are callus to right 5th metatarsal, right first metatarsal. No other sores or ulcerations, scars, verruca or other lesions noted. Ortho: Muscle strength is 5/ 5 for all pedal groups tested. Ankle joint DF is decreased with the knee extended with no pain or crepitus noted. 1st MPJ ROM is decreased bilateral. Amputation of right 4th and 5th toe. Assessment: (L85.9) Hyperkeratosis (primary encounte r diagnosis) (B35.1) Onychomycosis (S98.131D) Amputation of little toe, rig ht, subsequent encounter ([facility]) (I73.9) PAD (peripheral artery disease) ([facility]) (M20.41, M20.42) Hammer toes of both fee t Plan: Patient was seen and evaluated. Nails 1-5 left and 2-3 right were debrided in length and thickness. Q7 modifier Callus reduced to right 5th metatarsal and right first metatarsal with 15 blade. In order to perform a complete physical exam, limited shaving of callus area was performed. This incidental service is in tegral to the evaluation and management visit in order to appropriately manage and treat the patient (for their complaint or for this visit). Will provide patient with ge l padding to prevent rubbing on 5th metatarsal right foot. Recommend he return to his prior new balance as these shoes were wider and led to less callus formation. F/u in 5-6 weeks MIGUEL Plata DPM Formatting of this note might be differe nt from the original. See above Formatting of this note might be differe nt from the original. AMB ROOMING INTAKE FLOWSHEET DATA Pain Pain Level: 3 Pain Location: Foot-Right Description: Sore Duration Amount of Time: 3 Duration Units: Days Frequency: Intermittent Intervention/Comfort measure: Reposition , Relaxation Patient presents with: Right Foot - Established Patient, Follow Up, Pain Left Foot - Established Patient, Follow Up Luh Garcia LPN documented in this encounter 11-06-2022 Note HNO ID: [id number] [facility] Author: Jason Snider MD [place] Service: ? Author Type: Physician Type: Progress Notes Filed: 11/06/2022 10:30 AM Note Text: This note was created using [employer]. Subjective Navid Cortes is a 86 year old male her e with Jose David. He was doing reasonably well with support at home. He had no falls, and they had no new concerns. On retrieval of records, patti e was found to have aortic valve stenosis last year, asymptomatic. Review of Systems Constitutional: Negative. Respiratory: Negative. Cardiovascular: Negative. Musculoskeletal: Negative. Neurological: Negative. ACTIVE PROBLEM LIST Bph With Obstruction/Lower Urinary Tract Symptoms Hyperuricemia Hypothyroidism Idiopathic Peripheral Neuropathy Nocturia Stage 3a Chronic Kidney Disease (Hcc) Carotid Stenosis, Asymptomatic Polyarticular Psoriatic Arthritis (Hcc) Secondary Osteoarthritis of Multiple Sit es Long-Term Use of High-Risk Medication Interstitial Lung Disease (Hcc) Bradycardia Atherosclerosis of [place] Coronary Arter y of [place] Heart Without Angina Pectoris Gout Presence of Cardiac Pacemaker Mixed Hyperlipidemia Essential Hypertension Dementia of The Alzheimer's Type With La te Onset Without Behavioral Disturbance (Hcc) Mild Protein-Calorie Malnutrition (Hcc) Hypertensive Kidney Disease With Stage 3 a Chronic Kidney Disease (Hcc) History of Amputation of Lesser Toe, Rig ht (Hcc) Peripheral Artery Disease (Hcc) Sinus Node Dysfunction ([facility]) Current Outpatient Medications Medication Sig tamsulosin (FLOMAX) 0.4 mg Take 1 capsul e by mouth every evening. lisinopril (ZESTRIL, PRINIVIL) 10 mg tab let Take 1 tablet by mouth once daily. gabapentin (NEURONTIN) 100 mg capsule Ta ke 1 capsule by mouth daily at bedtime for 180 days. levothyroxine (SYNTHROID) 175 mcg tablet Take 1 tablet by mouth once daily. For Thyroid. cyanocobalamin (VITAMIN B-12) 1,000 mcg tab Take 1 tablet by mouth once daily. donepezil (ARICEPT) 10 mg tablet Take 1 tablet by mouth every evening. pravastatin (PRAVACHOL) 40 mg tablet Kyler e 1 tablet by mouth every morning. finasteride (PROSCAR) 5 mg tablet Take 1 tablet by mouth once daily. allopurinol (ZYLOPRIM) 300 mg tablet Kyler e 1 tablet by mouth once daily. clopidogrel (PLAVIX) 75 mg tablet Take 1 tablet by mouth once daily. nitroglycerin sublingual (NITROQUICK) 0. 4 mg SL tablet Dissolve 1 tablet under the tongue as needed. FOR CHEST PA IN. IF NO RELIEF CALL 911 ofloxacin (OCUFLOX) 0.3 % ophthalmic marilin ution Use 1 Drop in both eyes. Use 1 drop in both eyes one day prior to eye injection. [place]-3 Fatty Acids (FISH OIL) 500 mg ca p Take 1 capsule by mouth once daily. beta-carotene(a) w-c AND e/zn/cu(OCUVITE PRESERVISION TAB) Take one(1) tablet daily. CLARITIN 10 MG ORAL TAB Take one(1) tabl et daily. ASPIRIN 81MG TABLET Take one (1) tablet daily . MULTIVITAMIN TABLET Take one(1) tablet d aily. No current facility-administered medicat ions for this visit. Objective BP 110/70 Pulse 64 Temp 36.6 ?C (97. 8 ?F) Resp 14 Ht 177.8 cm (5' 10 ) Wt 82.6 kg (182 lb) SpO2 97 % BMI 26.11 kg/m? Physical Exam Constitutional: General: He is not in acute distress. Cardiovascular: Rate and Rhythm: Normal rate and regular rhythm. Heart sounds: S1 normal and S2 normal. M urmur heard. Systolic murmur is present with a grade of 2/6. Comments: ULSB murmur Musculoskeletal: Right lower leg: No edema. Left lower leg: No edema. Neurological: Mental Status: He is alert. Component Latest Ref Rng AND Units 11/02 Cholesterol, Total <200 mg/dL 191 Triglyceride <150 mg/dL 116 HDL Cholesterol >39 mg/dL 55 Non HDL Cholesterol <130 mg/dL 136 (H) Fasting Time hrs 15 VLDL Cholesterol <30 mg/dL 23 TC:HDL Ratio <5.10 3.47 LDL Cholesterol <100 mg/dL 113 (H) LDL:HDL Ratio <2.54 2.05 TSH 0.270 - 4.200 mIU/L 2.870 Assessment and Plan 1. Medicare annual wellness visit, subse quent - ICD9: V70.0, ICD10: Z00.00 (primary diagnosis) See wellness. 2. Mixed hyperlipidemia - ICD9: 272.2, I CD10: E78.2 - good control - Continue current medication. - COMP METABOLIC PANEL - LIPID PANEL BASIC 3. Sinus node dysfunction (HCC) - ICD9: 427.81, ICD10: I49.5 S/p PPM 4. Essential hypertension - ICD9: 401.9, ICD10: I10 - good control - TSH BLD 5. 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 6. Hypothyroidism, unspecified type - IC D9: 244.9, ICD10: E03.9 - continue current dose of Synthroid - CBC 7. Moderate aortic valve stenosis - ICD9 : 424.1, ICD10: I35.0 Monitored by cardiology. Jason Snider MD 11-06-2022 Note HNO ID: [id number] [facility] Author: Jason Snider MD [place] Service: ? Author Type: Physician Type: Progress Notes Filed: 11/06/2022 10:30 AM Note Text: Navid Cortes is a 86 year old male her e for a Medicare Subsequent Annual Wellness Visit Health Risk Assessment In general, health is: Fair Concerns with balance:Not at all Concerns with teeth or dentures:Not at a ll Concerns with sexual function:Not at all [place] anxious, stressed, angry, irritable , lonely, isolated, or had thoughts of hurting themself: Not at all Has little interest or pleasure in doing things: Not at all Bothered by feeling down, depressed, or hopeless: Several days Needs help with grocery shopping, cookin g, housework, bathing, grooming, dressing, eating, sitting or standing, w alking, using the toilet, handling finances, taking medications, using the telephone, or driving: Yes Following safety precautions in the home environment and vehicle: removed throw rugs from floors, installed grab b ars in the bathroom, handrails in stairwells, having adequate lighting, we aring seatbelt at all times?: Yes Smokes cigarettes, vapes, or chew tobacc o: No Eats healthy foods including fruits, veg etables, whole grains, and fiber-rich foods: More than half the day s Number of days per week engages in exerc ise: 0 days Average alcohol consumption: Never Current Providers Specialists: I have reviewed specialist- related care of the patient in the medical record. Current care team: Patient Care Team: Jason Snider MD as PCP - General (Internal Medicine) Augusto Tran as Specialty Supervisor [employer] [place] (Cardiology) Kenan Mari as Specialty Consulta nt (Pulmonary Disease) Lorne Andrew Jr., DO as Specialty Supervisor [employer] [place] (Ophthalmology) Aracelis Aceves as Specialty Supervisor [employer] [place] (Podiatry) Claude He MD/Diego paniagua MD as Specialty Supervisor [employer] [place] (Cerebrovascular) Dr. Julia Barron, rheumatology. Medical/Family history review Reviewed and updated problem list, medic al/surgical/family/social history, medications, and allergies. Opioid use review Patient is not currently using opioids. Depression screening Depression Screening PHQ-2 Score PHQ-9 S core 09/14/2022 1 7 Depression screening tool completed and reviewed. Based on score and interview, patient is not at risk for de pression. Screening tool discussed with patient, and I recommended no furth er intervention at this time. Cognitive screening NA Functional Observation Was the patient's timed Up AND Go test u nsteady or ? 12 seconds? No Advance Care Planning End of Life planning discussed, includin jasmin patient's advanced directive wishes: Yes Measurements BP 110/70 Pulse 64 Temp 97.8 Resp 14 Ht 5' 10 (1.78m) Wt 182 lb (82.6kg) SpO2 97% BMI 26.11 kg/(m2). Visual acuity (required for [facility]): follows with optometry/ophthalmology and Right: 20/20 0 Left: 20/ 70 Both: 20/50 Hearing Evaluation: within normal limits Assessment/Plan - Counseled on healthy diet and regular exercise - Fall avoidance - Depression screening 09-25-2022 Miscellaneous Formatting of this note migh t be different from the original. [facility] Notes Printed for pcp to review. P cp signed. This has been faxed back to [place] [employer]. Formatting of this note might be differe nt from the original. Rec'd via fax an OT evaluation driving r eport. This has been entered in scanned documen ts. Please review. documented in this encounter 09-23-2022 Miscellaneous Formatting of this note migh t be different from the original. [facility] Notes Duplicate request. Ayesha Sainz LPN documented in this encounter 09-23-2022 Miscellaneous Formatting of this note is d ifferent from the original. [facility] Notes Patient has been identified by name and date of : Yes Daughter phones for refill(s): Requested Prescriptions Pending Prescriptions Disp Refills tamsulosin (FLOMAX) 0.4 mg 90 capsule 3 Sig: Take 1 capsule by mouth every eveni ng. Date of last office visit in primary car e: 09/17/2022 Annual Medicare: 11/06/2022 Last 2 Encounter Wt Readings: Date: Wt: 09/17/2022 80.7 kg (178 lb) 05/29/2022 79.4 kg (175 lb) Previous labs/tests for medication: Not applicable Please advise. Thank you. Ayesha cevallos LPN documented in this encounter 09-18-2022 Note HNO ID: [id number] [facility] Author: Jason Snider MD [place] Service: ? Author Type: Physician Type: Progress Notes Filed: 09/18/2022 7:32 AM Note Text: This note was created using Taktioriter. Subjective Navid Cortes is a 86 year old male was here for follow up with his daughter. He did not do well with drivin g evaluation and has stopped driving per recommendations. We reviewed OT evaluation results and recommendations. He continued on treatme nts for macular degeneration. He needed refills. Caregivers report interm ittent dizziness, but he had no concerns today. Vaccines were up to date. We reviewed and completed a DNR CCA form together. Review of Systems Constitutional: Negative. Objective BP 134/84 Pulse 60 Temp 36.4 ?C (97. 5 ?F) Resp 16 Wt 80.7 kg (178 lb) SpO2 98% BMI 25.54 kg/m? Physical Exam Constitutional: Appearance: Normal appearance. Neurological: Mental Status: He is alert. Gait: Gait normal. Psychiatric: Mood and Affect: Mood normal. Behavior: Behavior normal. Assessment and Plan ASSESSMENT/PLAN: 1. 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 2. Essential hypertension - ICD9: 401.9, ICD10: I10 - fair control - LISINOPRIL 10 MG TABLET 3. Idiopathic peripheral neuropathy - IC D9: 356.9, ICD10: G60.9 Controlled. - GABAPENTIN 100 MG CAPSULE Jason Snider MD 09-18-2022 History of Present [facility] illness Narrative This note was created using Taktioriter. Subjective Navid Cortes is a 86 year old male was here for follow up with his daughter. He did not do well with driving evaluation and has stopped driving per recommendations. We reviewed OT evaluation results a nd recommendations. He slava nued on treatments for macular degeneration. He needed refills. Caregivers report intermittent dizziness, but he had no concerns today. Vaccines were up to date. We reviewed and completed a DNR CCA form together. Review of Systems Constitutional: Negative. Objective BP 134/84 Pulse 60 Temp 36.4 C (97.5 F) Resp 16 Wt 80.7 kg (178 lb) SpO2 98% BMI 25.54 kg/m Physical Exam Constitutional: Appearance: Normal appearance. Neurological: Mental Status: He is alert. Gait: Gait normal. Psychiatric: Mood and Affect: Mood normal. Behavior: Behavior normal. Assessment and Plan ASSESSMENT/PLAN: 1. Dementia of the Alzheimer 's type with late onset without behavioral disturbance (HCC) - ICD9: 331.0, 294.10, ICD10: G30.1, F02.80 (primary diagnosis) - ADVANCE CARE PLAN DISCUSSION - I'll reach out to OT if I need to sign any form regarding driving. 2. Essential hypertension - ICD9: 401.9, ICD10: I10 - fair control - LISINOPRIL 10 MG TABLET 3. Idiopathic peripheral neuropathy - IC D9: 356.9, ICD10: G60.9 Controlled. - GABAPENTIN 100 MG CAPSULE Jason Snider MD documented in this encounter 09-17-2022 Note HNO ID: [id number] [facility] Author: Aracelis Aceves [place] Service: ? Author Type: Physician Type: Progress Notes Filed: 09/16/2022 11:09 PM Note Text: FOLLOW UP PODIATRIC OFFICE VISIT Chief Complaint: This 86 year old who pr esents for follow up:callus of b/l feet Patient presents to clinic for follow-up callus of b/l feet He currently denies any pain. PAIN EVALUATION No data found in the last 1 encounters. Hemoglobin A1C Date Value Ref Range Status 08/12/2017 5.8 (H) 4.3 - 5.6 % Final Comment: [place] [employer] guidelines indicate that patients with HgbA1c in the range 5.7-6.4% are at increased risk for development of diabetes, and intervention by lifestyle modification m ay be beneficial. HgbA1c greater or equal to 6.5% is considered diagnostic o f diabetes. PCP: Jason Snider MD PAST MEDICAL HISTORY Diagnosis Date Abnormal ANCA test 05/07/2017 Anal stenosis 04/05/2013 ANEMIA NORMOCYTIC 07/21/2006 Bradycardia 10/24/2018 CAD (coronary artery disease) two-vessel CABG 1996 ([facility]); PCI/stent LCX 2010 Chronic kidney disease, stage 3 (moderat e) 08/11/2016 CKD (chronic kidney disease) stage 3, GF R 30-59 ml/min ([facility]) 08/11/2016 Closed fracture of metatarsal bone(s) Cognitive disorder 08/12/2015 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 ([facility]) 04/04/2021 Esophageal reflux Hemorrhage of rectum and anus History of prediabetes 08/05/2016 Hyperlipidemia Hypertrophy of prostate with urinary obs truction and other lower urinary tract symptoms (LUTS) 03/19/2006 HYPERURICEMIA 09/29/2006 Idiopathic peripheral neuropathy 0 Internal hemorrhoids without mention of complication Interstitial lung disease ([facility]) 7 Mixed hyperlipidemia Hyperlipidemia Occlusion and stenosis of carotid artery without mention of cerebral infarction 07/08/2010 OM (osteomyelitis) ([facility]) 04/03/2010 Osteomyelitis of fifth toe of right foot ([facility]) 01/23/2020 PAC (premature atrial contraction) 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 cardiac pacemaker 09/22/2019 BOLD Guidance dual-chamber pacemaker system; indication: symptomatic bradycardia due to sinus node dysfunctio n; system will be MRI conditional after 6 weeks post implant Psoriasis and similar disorders arthritis PSORIATIC ARTHRITIS 09/29/2006 PVC (premature ventricular contraction) Sinus node dysfunction ([facility]) 09/22/2019 Unspecified essential hypertension Essential hypertension Unspecified hypothyroidism Urethral stricture 04/04/2012 Urinary retention 03/16/2013 Vasculitis ([facility]) 04/01/2017 Current Outpatient Medications Medication Sig levothyroxine (SYNTHROID) 175 mcg tablet Take 1 tablet by mouth once daily. For Thyroid. lisinopril (ZESTRIL, PRINIVIL) 10 mg tab let Take 1 tablet by mouth once daily. gabapentin (NEURONTIN) 100 mg capsule Ta ke 1 capsule by mouth daily at bedtime for 180 days. cyanocobalamin (VITAMIN B-12) 1,000 mcg tab Take 1 tablet by mouth once daily. triamcinolone acetonide (NASACORT) 55 mc g nasal inhaler Use 2 Sprays in the nose once daily. donepezil (ARICEPT) 10 mg tablet Take 1 tablet by mouth daily at bedtime. pravastatin (PRAVACHOL) 40 mg tablet Kyler e 1 tablet by mouth every morning. finasteride (PROSCAR) 5 mg tablet Take 1 tablet by mouth once daily. allopurinol (ZYLOPRIM) 300 mg tablet Kyler e 1 tablet by mouth once daily. clopidogrel (PLAVIX) 75 mg tablet Take 1 tablet by mouth once daily. memantine (NAMENDA) 10 mg tablet Take 1 tablet by mouth once daily. tamsulosin (FLOMAX) 0.4 mg Take 1 capsul e by mouth every evening. nitroglycerin sublingual (NITROQUICK) 0. 4 mg SL tablet Dissolve 1 tablet under the tongue as needed. FOR CHEST PA IN. IF NO RELIEF CALL 911 ofloxacin (OCUFLOX) 0.3 % ophthalmic marilin ution Use 1 Drop in both eyes. Use 1 drop in both eyes one day prior to eye injection. [place]-3 Fatty Acids (FISH OIL) 500 mg ca p Take 1 capsule by mouth once daily. beta-carotene(a) w-c AND e/zn/cu(OCUVITE PRESERVISION TAB) Take one(1) tablet daily. CLARITIN 10 MG ORAL TAB Take one(1) tabl et daily. ASPIRIN 81MG TABLET Take one (1) tablet daily . MULTIVITAMIN TABLET Take one(1) tablet d aily. donepezil (ARICEPT) 10 mg tablet Take 1 tablet by mouth every evening. leflunomide (ARAVA) 10 mg tablet Take 10 mg by mouth once daily. No current facility-administered medicat ions for this visit. ALLERGIES Allergen Reactions Bactrim [Sulfametho* Rash, Hives, Other: See Comments Elevated bilirubin Cats Gold Shots [Other] Hyoscyamine Unknown Metronidazole Unknown Sesame Seed Sulfa (Sulfonamide * Rash, Hives Tree Nut Other: See Comments Tree Nuts [Other] ANY NUT THAT GROWS ON TREES Trimethoprim Rash, Hives PAST SURGICAL HISTORY Procedure Laterality Date AMPUTATE TOE; IP JOINT 2009 Rt foot 4th toe AMPUTATION METATARSAL+TOE,SINGLE Right 0 01/23/2020 R 5th toe. ANES HRT PERICARDIA (more content not in cluded)... 09-16-2022 History of Present [facility] illness Narrative FOLLOW UP PODIATRIC OFFICE VISIT Chief Complaint: This 86 yea r old who presents for follow up:callus of b/l feet Patient presents to clinic for follow-up callus of b/l feet He currently denies any pain. PAIN EVALUATION No data found in the last 1 encounters. Hemoglobin A1C Date Value Ref Range Status 08/12/2017 5.8 (H) 4.3 - 5.6 % Final Comment: [place] [employer] guidelines indicate that patients with HgbA1c in the range 5.7-6.4% are at increased risk for development of diabetes, and intervention by lifestyle modification m ay be beneficial. HgbA1c greater or equal to 6.5% is considered diagnostic o f diabetes. 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 (HCC) 04/04/2021 Esophageal reflux Hemorrhage of rectum and anus History of prediabetes 08/05/2016 Hyperlipidemia Hypertrophy of prostate with urinary obstruction and other lower urinary tract symptoms (LUTS) 03/19/2006 HYPERURICEMIA 09/29/2006 Idiopathic peripheral neuropathy 0 Internal hemorrhoids without mention of complication Interstitial lung disease ([facility]) 7 Mixed hyperlipidemia Hyperlipidemia 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 07/08/2010 OM (osteomyelitis) ([facility]) 04/03/2010 Osteomyelitis of fifth toe of right foot ([facility]) 01/23/2020 PAC (premature atrial contraction) 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 cardiac pacemaker 09/22/2019 BOLD Guidance dual-chamb er pacemaker system; indication: symptomatic bradycardia due to sinus node dysfunction; system will be MRI conditional after 6 weeks post implant Psoriasis and similar disorders arthritis PSORIATIC ARTHRITIS 09/29/2006 PVC (premature ventricular contraction) Sinus node dysfunction ([facility]) 09/22/2019 Unspecified essential hypertension Essential hypertension Unspecified hypothyroidism Urethral stricture 04/04/2012 Urinary retention 03/16/2013 Vasculitis ([facility]) 04/01/2017 Current Outpatient Medications Medication Sig levothyroxine (SYNTHROID) 17 5 mcg tablet Take 1 tablet by mouth once daily. For Thyroid. lisinopril (ZESTRIL, PRINIVIL) 10 mg tab let Take 1 tablet by mouth once daily. gabapentin (NEURONTIN) 100 m g capsule Take 1 capsule by mouth daily at bedtime for 180 days. cyanocobalamin (VITAMIN B-12) 1,000 mcg tab Take 1 tablet by mouth once daily. triamcinolone acetonide (AMANDEEP ACORT) 55 mcg nasal inhaler Use 2 Sprays in the nose once daily. donepezil (ARICEPT) 10 mg tablet Take 1 tablet by mouth daily at bedtime. pravastatin (PRAVACHOL) 40 mg tablet Kyler e 1 tablet by mouth every morning. finasteride (PROSCAR) 5 mg tablet Take 1 tablet by mouth once daily. allopurinol (ZYLOPRIM) 300 mg tablet Kyler e 1 tablet by mouth once daily. clopidogrel (PLAVIX) 75 mg tablet Take 1 tablet by mouth once daily. memantine (NAMENDA) 10 mg tablet Take 1 tablet by mouth once daily. tamsulosin (FLOMAX) 0.4 mg Take 1 capsul e by mouth every evening. nitroglycerin sublingual (NI TROQUICK) 0.4 mg SL tablet Dissolve 1 tablet under the tongue as needed. FOR CHEST PAIN. IF NO RELIEF CALL 911 ofloxacin (OCUFLOX) 0.3 % op halmic solution Use 1 Drop in both eyes. Use 1 drop in both eyes one day prior to eye injection. [place]-3 Fatty Acids (FISH OIL) 500 mg ca p Take 1 capsule by mouth once daily. beta-carotene(a) w-c & e/zn/ cu(OCUVITE PRESERVISION TAB) Take one(1) tablet daily. CLARITIN 10 MG ORAL TAB Take one(1) tabl et daily. ASPIRIN 81MG TABLET Take one (1) tablet daily . MULTIVITAMIN TABLET Take one(1) tablet d aily. donepezil (ARICEPT) 10 mg tablet Take 1 tablet by mouth every evening. leflunomide (ARAVA) 10 mg tablet Take 10 mg by mouth once daily. No current facility-administered medicat ions for this visit. ALLERGIES Allergen Reactions Bactrim [Sulfametho* Rash, Hives, Other: See Comments Elevated bilirubin Cats Gold Shots [Other] Hyoscyamine Unknown Metronidazole Unknown Sesame Seed Sulfa (Sulfonamide * Rash, Hives Tree Nut Other: See Comments Tree Nuts [Other] ANY NUT THAT GROWS ON TREES Trimethoprim Rash, Hives PAST SURGICAL HISTORY Procedure Laterality Date AMPUTATE TOE; IP JOINT 2009 Rt foot 4th toe AMPUTATION METATARSAL+TOE,SINGLE Right 0 01/23/2020 R 5th toe. 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 Gentile [facility] BUNIONECTOMY, [place]-TYPE Right 2009 Right foot CARDIAC CATH 01/28/2011 normal LV systolic fxn; norm al LM, occluded LAD; LCX 50% ostial, mid 80%; left PDA 50% prox; RCA small nondominant with 70% ostial stenosis; SVG-PDA occluded; VIZCARRA Y graft to LAD and diagonal branch patent; CAROTID SURGERY Left 1997 CAROTID-[place]-- left CAROTID SURGERY Right 05/04/2014 RIGHT CAROTID CATARACT EXTRACTION HX Bilateral 2016 COLONOSCOPY FLX DX W/COLLJ SPEC WHEN BRIGITTE GONZALEZ 08/10/2014 CORONARY ARTERY BYPASS GRAFT 06/06/1997 CABG 2 vessel: VIZCARRA Y graft to LAD and diagonal branch; [facility], Dr. Valenzuela ECHOCARDIOGRAM 02/18/2018 normal LV systolic fxn; LVEF 60%; mild pHTN; no significant valvular abnormalities HEMORRHOIDECTOMY 1962 HOLTER 24 HR 07/14/2019 sinus rhythm, sinus bradycardia; min HR 33 bpm; max HR 98 bpm; avg HR 49 bpm INSERT INTRACORONARY STENT 2010 PCI/stent to LCX LASER GREENLIGHT PVP 2013 Prostate PACEMAKER IMPLANT 09/22/2019 PAST SURGICAL HISTORY OF Right 2004 RIGHT LEG FRACTURE WITH RODS PHARMACOLOGIC NUCLEAR STRESS 02/18/2018 no ischemia or scar SIGMOIDOSCOPY FLX DX W/COLLJ SPEC BR/WA IF PFRMD 06/19/08 TONSILLECTOMY PRIMARY/SECONDARY <AGE 12 194 Tonsillectomy TRURL ELECTROSURG RESCJ PROSTATE BLEED C OMPLETE 2005 TURP VASECTOMY UNI/BI SPX W/POSTOP SEMEN EXAM S 1970 Physical Exam: OBJECTIVE: Constitutional: Pt is a well developed 86 year old male who is alert, oriented, cooperative and in no apparent distress. Eyes: Following during examination. No r edness or drainage. Respiratory: RR normal and n onlabored. Even breathing. No evidence of distress. Psychology: Patient is engag ed during conversation. Normal affect and mood. Does not appear depressed or anxious. NVSI unchanged from previous visit. Dermatological: Nails 1-5 b/l are normal. We bspaces clean and dry 1-4 b/l. Skin appears well hydrated and supple. good color, texture, turgor. No open lesions present. Callus present to right 1st metataral and right 5t h metatarsal and left 2nd toe. No ulcera tion present. 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 Contineu with hammertoe pad and wider sh oes F/u in 2 months or sooner if problems ar ise Aracelis Aceves DPM Formatting of this note might be differe nt from the original. AMB ROOMING INTAKE FLOWSHEET DATA Risk Screening Do you have concerns about personal safe ty or safety in the home?: No Patient presents with: Left Foot - Established Patient, Callous , Follow Up Right Foot - Established Patient, Callou s, Follow Up Patient present with friend/ caregiver. Luh Garcia LPN documented in this encounter 09-16-2022 Note HNO ID: [id number] [facility] Author: Luh Garcia LPN [place] Service: ? Author Type: LICENSED NURSE Type: Progress Notes Filed: 09/16/2022 11:09 PM Note Text: AMB ROOMING INTAKE FLOWSHEET DATA Risk Screening Do you have concerns about personal safe ty or safety in the home?: No Patient presents with: Left Foot - Established Patient, Callous , Follow Up Right Foot - Established Patient, Callou s, Follow Up Patient present with friend/ caregiver. Luh Garcia LPN 08-14-2022 Note HNO ID: [id number] [facility] Author: Aleida Thomas OT/Matt Service: ? Author Type: Occupational Therapist Type: Progress Notes Filed: 08/16/2022 3:59 PM Note Text: Episode Visit Count: 1 Start of Care Date: 08/14/22 Onset Date: (diagnosed with Alzheimer's dementia with late onset in recent years) Patient Identified by Name and Date of B irth: Yes REHABILITATION AND SPORTS THERAPY OCCUPATIONAL THERAPY INSTRUMENTAL ADL AN D COMMUNITY MOBILITY EVALUATION SUBJECTIVE: Navid Cortes is a 86 year old male seen today for OT functional community mobility assessment with diagnosis of Alzheimer's dementia with late onset. His daughter michael ttended the session with him and provided helpful information throughout as appropriate. 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 (has car egiver assist 7 days/week while 6 hours - and 4 hours Wednesday who comp lete various tasks and can provide transportation) Home Type: [place] Transportation: SUV Patient Goals: to continue to provide r local transportation needs as desired Intake Information: Prescription present Relevant History Past Relevant Medical Conditions: Cardia c;Hypertension (Refer to medical chart for further details; was diagnosed with Alzheimer's dementia with late onset in past few years while [facility] i n 2015) Highest Level of Education: Bachelors (a t minimum) Preferred Language: [place]an Right or Left Handed: Right 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) Recreation / Current Exercise: walking Hobbies / Interests: reading newspaper, walking Home Environment Patient Lives With: Self/Alone Assistance 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 (has car egiver assist 7 days/week while 6 hours M- and 4 hours Wednesday who comp lete various tasks and can provide transportation) Home Type: [place] Transportation: SUV Activities of Daily Living: Independent Instrumental Activities of Daily Living: he has caregiver assist daily for 7 hours M-F and 4 hours on Sat/Sun t hat assist with cleaning, laundry, meal preparation, providing medication; outside work taken care of by complex; daughter manages finances, adriana moore, attends most of his appointments with him Driving History: 70 years State: [place] License/Permit #: [id number] E xpires: 11/09/25 Restrictions: none 5 Yr. Violation HX: none 5 Yr. MVA HX: n one Handicap Parking Placard: unknown 1. Navid Cortes self report indicates an awareness of: Forgetting new information 2. Navid Cortes expressed confidence r egarding driving when driving alone in familiar places. 3. Navid Cortes expressed concerns reg arding driving at night/decreased light conditions, in unfamiliar places, and on long trips. OBJECTIVE MEASURES WITH LEVEL OF FUNCTIO N: SENSORIMOTOR ASSESSMENT: Hand dominance: Right Level of Function Relevant to I ADL, Com munity Mobility, and Driving: Right UE: Sufficient Left UE: Sufficient Property Assistant: Sufficient Right LE: Sufficient Left LE: Sufficient Sitting Balance: Sufficient Head / Neck: Sufficient Ambulation: Sufficient Transfers: Sufficient Loading of Device: NA ASSESSMENT OF SENSORIMOTOR FUNCTION: Com patible with Driving VISION SCREENING: Vision Vision Deficits: Visual acuity deficit;T racking deficit (has been diagnosed with B macular degeneration wh ile receives injections every 11 weeks due to same; significantly decreas ed function in R eye) Corrective Lenses: None Distant Acuity: Binocular: 20 / 40-1 Nighttime Glare: Right: UNABLE TO DO Left: 20 / 40 Color Perception: fail Depth Perception: Fail Contrast Sensitivity: UNABLE TO DO WITH R EYE WHILE SEVERELY IMPAIRED WITH LEFT EYE Peripheral Vision: Within legal limits f or driving Right Eye: Failed to recognize stimuli: 35 degrees NASALLY Left Eye: Failed to recognize stimuli: 3 5 degrees NASALLY Pursuits: WNL Saccades: WNL Convergence: MINIMAL MOVEMENT WITH BOTH EYES Nystagmus: Not Apparent Diplopia: No complaints Strabismus: No OU Cataracts: No OU Glaucoma: No. OU Other Eye Conditions / Diseases Reported : MACULAR DEGENERATION BOTH EYES WHILE TREATMENTS EVERY 11 WEEKS FOR SAME ASSESSMENT OF VISUAL FUNCTION: Marginal for Driving COGNITIVE / PERCEPTUAL ASSESSMENT: SHORT BLESSED TEST Short Blessed Test 1. What Year Is It Now?: Incorrect 2. What Month Is It Now?: Correct 3. What Time is it? (WIthin 1 hour): Inc orrect 4. Count Aloud Backwards 20 to 1 (Errors ): 0 5. Months of the Year in Reverse Order ( Errors): 0 6. Memory Phrase (Errors) : 5 Short Blessed Final Score: 17 Short Blessed Test Scorin-8; Normal to minimal impairment 9-19; Moderate impairment 20-28; Severe impairment [email or web address] Immedi (more content not included)... 08-14-2022 History of Present [facility] illness Narrative Episode Visit Count: 1 Start of Care Date: 08/14/22 Onset Date: (diagnosed with Alzheimer's dementia with late onset in recent years) Patient Identified by Name and Date of B irth: Yes REHABILITATION AND SPORTS THERAPY OCCUPATIONAL THERAPY INSTRUMENTAL ADL AN D COMMUNITY MOBILITY EVALUATION SUBJECTIVE: Navid Cortes i s a 86 year old male seen today for OT functional community mobility assessment with diagnosis of Alzheimer's dementia with late onset. His daughter attended the session with him and provided helpful information th roughout as appropriate. Functional Limitations: nothing Home Environment Patient Lives With: Self/Alone Assistance Available: Part t litzy (has caregiver assist 7 days/week while 6 hours M- and 4 hours , Wednesday who complete various tasks and can provide transportation) Home Type: [place] Transportation: [facility] Patient Goals: to continue t o provide for local transportation needs as desired Intake Information: Prescription present Relevant History Past Relevant Medical Condit ions: Cardiac;Hypertension (Refer to medical chart for further details; was diagnosed with Alzheimer's dementia with late onset in past few years while [facility] in 2016) Highest Level of Education: Bachelors (a t minimum) Preferred Language: Ugandan Right or Left Handed: Right 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) 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 / Current 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: walking Hobbies / Interests: reading newspaper, walking Home Environment Patient Lives With: Self/Alone Assistance Available: Part t litzy (has caregiver assist 7 days/week while 6 hours M-F and 4 hours Wednesday who complete various tasks and can provide transportation) Home Type: [place] Transportation: [facility] Activities of Daily Living: Independent Instrumental Activities of D aily Living: he has caregiver assist daily for 7 hours M-F and 4 hours on Sat/Sun that assist with cleaning, laundry, meal preparation, providing medication; outside work kyler en care of by complex; marianaissac everett manages finances, calendar, attends most of his appointments with him Driving History: 70 years State: [place] License/Permit #: [id number] E xpires: 11/09/25 Restrictions: none 5 Yr. Violation HX: none 5 Yr. MVA HX: n one Handicap Parking Placard: unknown 1. Navid Cortes self repor t indicates an awareness of: Forgetting new information 2. Navid Cortes expressed confidence regarding driving when driving alone in familiar places. 3. Navid Lugocecilia expressed concerns regarding driving at night/decreased light conditions, in unfamiliar places, and on long trips. OBJECTIVE MEASURES WITH LEVEL OF FUNCTIO N: SENSORIMOTOR ASSESSMENT: Hand dominance: Right Level of Function Relevant to I ADL, Com munity Mobility, and Driving: Right UE: Sufficient Left UE: Sufficient Property Assistant: Sufficient Right LE: Sufficient Left LE: Sufficient Sitting Balance: Sufficient Head / Neck: Sufficient Ambulation: Sufficient Transfers: Sufficient Loading of Device: NA ASSESSMENT OF SENSORIMOTOR FUNCTION: Com patible with Driving VISION SCREENING: Vision Vision Deficits: Visual acui ty deficit;Tracking deficit (has been diagnosed with B macular degeneration while receives injections every 11 weeks due to same; significantly decreased function in R eye) Corrective Lenses: None Distant Acuity: Binocular: 20 / 40-1 Nighttime Glare: Right: UNABLE TO DO Left: 20 / 40 Color Perception: fail Depth Perception: Fail Contrast Sensitivity: UNABLE TO DO WITH R EYE WHILE SEVERELY IMPAIRED WITH LEFT EYE Peripheral Vision: Within legal limits f or driving Right Eye: Failed to recognize stimuli: 35 degrees NASALLY Left Eye: Failed to recognize stimuli: 3 5 degrees NASALLY Pursuits: WNL Saccades: WNL Convergence: MINIMAL MOVEMENT WITH BOTH EYES Nystagmus: Not Apparent Diplopia: No complaints Strabismus: No OU Cataracts: No OU Glaucoma: No. OU Other Eye Conditions / Disea ses Reported: MACULAR DEGENERATION BOTH EYES WHILE TREATMENTS EVERY 11 WEEKS FOR SAME ASSESSMENT OF VISUAL FUNCTION: Marginal for Driving COGNITIVE / PERCEPTUAL ASSESSMENT: SHORT BLESSED TEST Short Blessed Test 1. What Year Is It Now?: Incorrect 2. What Month Is It Now?: Correct 3. What Time is it? (WIthin 1 hour): Inc orrect 4. Count Aloud Backwards 20 to 1 (Errors ): 0 5. Months of the Year in Reverse Order ( Errors): 0 6. Memory Phrase (Errors) : 5 Short Blessed Final Score: 17 Short Blessed Test Scorin-8; Normal to minimal impairment 9-19; Moderate impairment 20-28; Severe impairment [email or web address] Immediate Recall: Below norm al @ 5/7 digits; HEARING IMPAIRMENT PREVIOUSLY DIAGNOSED BUT HAS NEVER WORN HEARING AIDES; ALSO SUSPECTED DECREASED AUDITORY ATTENTION SKILLS Visual Scanning/Attention: [place] Making Part B (sec): 446 sec 50th percentile norm for age group: 70-79; Part A: 80 seconds, Part B: 196 seconds [place] Clock Drawing Test: A rtmatheus Cortes correctly included 4/8 criteria for this test. He failed to include or correctly place: all 12 hours in correct numeric order, starting with 12 at the top only the numbers 1-12 (no duplicates, om issions, or foreign markings) the numbers equally, or nearly so, from each other the numbers equally spaced, or nearly so , from the edge of the white earth According to The Physician's Guide to Assessing and Counseling Older Drivers, 2003, any incorrect element in the [place] Clock Scoring signals a need for intervention. Motor Free Visual Perception Test: MVPT Total Score: 25 MVPT Processing time (seconds): 9.3 Norms: 70-80 y/o: Raw Score 25-35; Processing Time 4.5-7.1 seconds +/- .5 seconds Visual Inattention / Unilateral Neglect: Not Apparent ASSESSMENT OF COGNITIVE / PE RCEPTUAL FUNCTION: Not Suggestive of Safe Driving Potential [place] Landscape Architecture Teacher Simulator: Simple Brake Reaction Time: Average Dist ance: 67.3 FEET (Normal = 60 feet) R FOOT ONLY PEDAL OPERATION METHOD Education: Education Learning Preferences: Explanation Barriers: Cognitive Limitations Learning/educational needs: Health promo tion;Safety Education Provided: Yes, see treatment i nterventions for education provided Education Provided To: Patient;Family (ming lópez) Education Mode/Type: Explanation/Discuss ion Response to Education/Teach Back: States /Identifies TREATMENT: Evaluation: completed variou s standardized tests including MVPT, Clock drawing, Trailmaking B, Short Blessed Cognitive screen Self-Alf Management: Skilled Intervention: Treasuree ming judgment in the selection of proper modification for activity of daily living/home management based on clinical presentation, deficits, and needs. Educated the patient regardi ng recommendations and provided written instruction to facilitate compliance. Reviewed patient specific di agnosis in relation to activities of daily living/home management. Activity progression based on profession al judgement. PLAN OF CARE: SUMMARY AND RECOMMENDATIONS *The information in this rep ort indicates the ability of the ambulance driver to operate a motor vehicle on this date only. Due to the complex nature of the safe operation of a motor vehicle, and considering the demands of integrating mauricio ing environmental conditions, and visual, cognitive, and physical skills, successful completion of this program is not a guarantee of safe driving in the future. ASSESSMENT OF INSTRUMENTAL A DL AND COMMUNITY MOBILITY: Navid Cortes presents with the diagnosis of Alzheimer's dementia. He presents with impairments of vision including far acuity with and without gl are/lacking function in R ey e/severe impairment with contrast sensitivity/failed color and stereo depth perception/lacking B nasal visual nicholas, Clock drawing performance, alternating attention as note d on Trailmaking B, slowed v isual processing speed for visual perceptual screening and most errors in visual closure section, moderate impairment on Short Blessed Cognitive screen including for orientat ion and recall memory, audit ory attention/hearing deficit, lacking recall of current or any recent past presidents, in addition to family reports of cognitive decline for the past few years and having assist for IADL's daily by paid care providers. RECOMMENDATIONS: ADL/IADL Recommendations: on going assist should be provided while option to increase the amount of hours in the future as needed; daughter to remain significantly involved and monitoring situation Driving Recommendations: REF RAIN FROM DRIVING WHILE IMMEDIATE AND PERMANENT CESSATION INDICATED; THIS THERAPIST WILL PROVIDE INFORMATION TO PHYSICIAN REGARDING NOTIFYING THE [facility] SPECIAL CASE SECTIO N OF THE CONCERN SO THAT LIC ENSE SUSPENSION PROCESS CAN BE INITIATED; FAMILY MADE AWARE THEY NEED TO REMOVE ANY OPTION FOR ART TO OPERATE A MOTOR VEHICLE IMMEDIATELY WHILE HIS HIRED ASSIST IS ABLE TO TRANSPORT HIM NEEDED/REQUESTED Recommended Complete Eye Exa m: ongoing follow ups with formal eye exams as indicated Planned Interventions, Frequency, and Du ration: Current Frequency: 1 visit Duration: 1 visit Total Number of Visits Planned: 1 Patient demonstrates fair un derstanding of plan of care and treatment. The above results were discussed and agreed upon by patient/family. Billing: Total Treatment Time Minutes (t imed/untimed) 120 minutes Evaluation - Moderate Complexity (93916) Self Care / Home Management (84399): 1:1 time: 60 minutes (4 units: 53-67 mins) Total time: 120 minutes Aleida Thomas OT/L, CDRS, CDI Certified Landscape Architecture Teacher Rehabilitation Speciali st documented in this encounter 08-05-2022 Note HNO ID: [id number] [facility] Author: Aracelis Aceves [place] Service: ? Author Type: Physician Type: Progress Notes Filed: 08/05/2022 9:03 PM Note Text: FOLLOW UP PODIATRIC OFFICE VISIT Chief Complaint: This 86 year old who pr esents for follow up:callus of right fifth metatarsal Patient presents to clinic for follow-up callus of right 5th metatarsal Patient is using wider shoes and feels t his is helping He denies any pain today He denies having any open sores. PAIN EVALUATION No data found in the last 1 encounters. Hemoglobin A1C Date Value Ref Range Status 08/12/2017 5.8 (H) 4.3 - 5.6 % Final Comment: [place] [employer] guidelines indicate that patients with HgbA1c in the range 5.7-6.4% are at increased risk for development of diabetes, and intervention by lifestyle modification m ay be beneficial. HgbA1c greater or equal to 6.5% is considered diagnostic o f diabetes. PCP: Jason Snider MD PAST MEDICAL HISTORY Diagnosis Date Abnormal ANCA test 05/07/2017 Anal stenosis 04/05/2013 ANEMIA NORMOCYTIC 07/21/2006 Bradycardia 10/24/2018 CAD (coronary artery disease) two-vessel CABG 1996 ([facility]); PCI/stent LCX 2010 Chronic kidney disease, stage 3 (moderat e) 08/11/2016 CKD (chronic kidney disease) stage 3, GF R 30-59 ml/min ([facility]) 08/11/2016 Closed fracture of metatarsal bone(s) Cognitive disorder 08/12/2015 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 ([facility]) 04/04/2021 Esophageal reflux Hemorrhage of rectum and anus History of prediabetes 08/05/2016 Hyperlipidemia Hypertrophy of prostate with urinary obs truction and other lower urinary tract symptoms (LUTS) 03/19/2006 HYPERURICEMIA 09/29/2006 Idiopathic peripheral neuropathy 0 Internal hemorrhoids without mention of complication Interstitial lung disease ([facility]) 7 Mixed hyperlipidemia Hyperlipidemia Occlusion and stenosis of carotid artery without mention of cerebral infarction 07/08/2010 OM (osteomyelitis) ([facility]) 04/03/2010 Osteomyelitis of fifth toe of right foot ([facility]) 01/23/2020 PAC (premature atrial contraction) 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 cardiac pacemaker 09/22/2019 BOLD Guidance dual-chamber pacemaker system; indication: symptomatic bradycardia due to sinus node dysfunctio n; system will be MRI conditional after 6 weeks post implant Psoriasis and similar disorders arthritis PSORIATIC ARTHRITIS 09/29/2006 PVC (premature ventricular contraction) Sinus node dysfunction ([facility]) 09/22/2019 Unspecified essential hypertension Essential hypertension Unspecified hypothyroidism Urethral stricture 04/04/2012 Urinary retention 03/16/2013 Vasculitis ([facility]) 04/01/2017 Current Outpatient Medications Medication Sig levothyroxine (SYNTHROID) 175 mcg tablet Take 1 tablet by mouth once daily. For Thyroid. lisinopril (ZESTRIL, PRINIVIL) 10 mg tab let Take 1 tablet by mouth once daily. gabapentin (NEURONTIN) 100 mg capsule Ta ke 1 capsule by mouth daily at bedtime for 180 days. cyanocobalamin (VITAMIN B-12) 1,000 mcg tab Take 1 tablet by mouth once daily. triamcinolone acetonide (NASACORT) 55 mc g nasal inhaler Use 2 Sprays in the nose once daily. donepezil (ARICEPT) 10 mg tablet Take 1 tablet by mouth daily at bedtime. pravastatin (PRAVACHOL) 40 mg tablet Kyler e 1 tablet by mouth every morning. finasteride (PROSCAR) 5 mg tablet Take 1 tablet by mouth once daily. allopurinol (ZYLOPRIM) 300 mg tablet Kyler e 1 tablet by mouth once daily. clopidogrel (PLAVIX) 75 mg tablet Take 1 tablet by mouth once daily. memantine (NAMENDA) 10 mg tablet Take 1 tablet by mouth once daily. tamsulosin (FLOMAX) 0.4 mg Take 1 capsul e by mouth every evening. nitroglycerin sublingual (NITROQUICK) 0. 4 mg SL tablet Dissolve 1 tablet under the tongue as needed. FOR CHEST PA IN. IF NO RELIEF CALL 911 ofloxacin (OCUFLOX) 0.3 % ophthalmic marilin ution Use 1 Drop in both eyes. Use 1 drop in both eyes one day prior to eye injection. [place]-3 Fatty Acids (FISH OIL) 500 mg ca p Take 1 capsule by mouth once daily. beta-carotene(a) w-c AND e/zn/cu(OCUVITE PRESERVISION TAB) Take one(1) tablet daily. CLARITIN 10 MG ORAL TAB Take one(1) tabl et daily. ASPIRIN 81MG TABLET Take one (1) tablet daily . MULTIVITAMIN TABLET Take one(1) tablet d aily. donepezil (ARICEPT) 10 mg tablet Take 1 tablet by mouth every evening. leflunomide (ARAVA) 10 mg tablet Take 10 mg by mouth once daily. No current facility-administered medicat ions for this visit. ALLERGIES Allergen Reactions Bactrim [Sulfametho* Rash, Hives, Other: See Comments Elevated bilirubin Cats Gold Shots [Other] Hyoscyamine Unknown Metronidazole Unknown Sesame Seed Sulfa (Sulfonamide * Rash, Hives Tree Nut Other: See Comments Tree Nuts [Other] ANY NUT THAT GROWS ON TREES Trimethoprim Rash, Hives PAST SURGICAL HISTORY Procedure Laterality Date AMPUTATE TOE; IP JOIN (more content not included)... 08-05-2022 History of Present [facility] illness Narrative FOLLOW UP PODIATRIC OFFICE VISIT Chief Complaint: This 86 yea r old who presents for follow up:callus of right fifth metatarsal Patient presents to clinic for follow-up callus of right 5th metatarsal Patient is using wider shoes and feels t his is helping He denies any pain today He denies having any open sores. PAIN EVALUATION No data found in the last 1 encounters. Hemoglobin A1C Date Value Ref Range Status 08/12/2017 5.8 (H) 4.3 - 5.6 % Final Comment: [place] Diabetes [employer] guidelines indicate that patients with HgbA1c in the range 5.7-6.4% are at increased risk for development of diabetes, and intervention by lifestyle modification m ay be beneficial. HgbA1c greater or equal to 6.5% is considered diagnostic o f diabetes. 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 ([facility]) 04/04/2021 Esophageal reflux Hemorrhage of rectum and anus History of prediabetes 08/05/2016 Hyperlipidemia Hypertrophy of prostate with urinary obstruction and other lower urinary tract symptoms (LUTS) 03/19/2006 HYPERURICEMIA 09/29/2006 Idiopathic peripheral neuropathy 0 Internal hemorrhoids without mention of complication Interstitial lung disease ([facility]) 7 Mixed hyperlipidemia Hyperlipidemia 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 07/08/2010 OM (osteomyelitis) ([facility]) 04/03/2010 Osteomyelitis of fifth toe of right foot ([facility]) 01/23/2020 PAC (premature atrial contraction) 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 cardiac pacemaker 09/22/2019 BOLD Guidance dual-chamb er pacemaker system; indication: symptomatic bradycardia due to sinus node dysfunction; system will be MRI conditional after 6 weeks post implant Psoriasis and similar disorders arthritis PSORIATIC ARTHRITIS 09/29/2006 PVC (premature ventricular contraction) Sinus node dysfunction ([facility]) 09/22/2019 Unspecified essential hypertension Essential hypertension Unspecified hypothyroidism Urethral stricture 04/04/2012 Urinary retention 03/16/2013 Vasculitis ([facility]) 04/01/2017 Current Outpatient Medications Medication Sig levothyroxine (SYNTHROID) 17 5 mcg tablet Take 1 tablet by mouth once daily. For Thyroid. lisinopril (ZESTRIL, PRINIVIL) 10 mg tab let Take 1 tablet by mouth once daily. gabapentin (NEURONTIN) 100 m g capsule Take 1 capsule by mouth daily at bedtime for 180 days. cyanocobalamin (VITAMIN B-12) 1,000 mcg tab Take 1 tablet by mouth once daily. triamcinolone acetonide (AMANDEEP ACORT) 55 mcg nasal inhaler Use 2 Sprays in the nose once daily. donepezil (ARICEPT) 10 mg tablet Take 1 tablet by mouth daily at bedtime. pravastatin (PRAVACHOL) 40 mg tablet Kyler e 1 tablet by mouth every morning. finasteride (PROSCAR) 5 mg tablet Take 1 tablet by mouth once daily. allopurinol (ZYLOPRIM) 300 mg tablet Kyler e 1 tablet by mouth once daily. clopidogrel (PLAVIX) 75 mg tablet Take 1 tablet by mouth once daily. memantine (NAMENDA) 10 mg tablet Take 1 tablet by mouth once daily. tamsulosin (FLOMAX) 0.4 mg Take 1 capsul e by mouth every evening. nitroglycerin sublingual (NI TROQUICK) 0.4 mg SL tablet Dissolve 1 tablet under the tongue as needed. FOR CHEST PAIN. IF NO RELIEF CALL 911 ofloxacin (OCUFLOX) 0.3 % op hthalmic solution Use 1 Drop in both eyes. Use 1 drop in both eyes one day prior to eye injection. [place]-3 Fatty Acids (FISH OIL) 500 mg ca p Take 1 capsule by mouth once daily. beta-carotene(a) w-c & e/zn/ cu(OCUVITE PRESERVISION TAB) Take one(1) tablet daily. CLARITIN 10 MG ORAL TAB Take one(1) tabl et daily. ASPIRIN 81MG TABLET Take one (1) tablet daily . MULTIVITAMIN TABLET Take one(1) tablet d aily. donepezil (ARICEPT) 10 mg tablet Take 1 tablet by mouth every evening. leflunomide (ARAVA) 10 mg tablet Take 10 mg by mouth once daily. No current facility-administered medicat ions for this visit. ALLERGIES Allergen Reactions Bactrim [Sulfametho* Rash, Hives, Other: See Comments Elevated bilirubin Cats Gold Shots [Other] Hyoscyamine Unknown Metronidazole Unknown Sesame Seed Sulfa (Sulfonamide * Rash, Hives Tree Nut Other: See Comments Tree Nuts [Other] ANY NUT THAT GROWS ON TREES Trimethoprim Rash, Hives PAST SURGICAL HISTORY Procedure Laterality Date AMPUTATE TOE; IP JOINT 2010 Rt foot 4th toe AMPUTATION METATARSAL+TOE,SINGLE Right 0 01/23/2020 R 5th toe. 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 Gentile [facility] BUNIONECTOMY, [place]-TYPE Right 2009 Right foot CARDIAC CATH 01/28/2011 normal LV systolic fxn; norm al LM, occluded LAD; LCX 50% ostial, mid 80%; left PDA 50% prox; RCA small nondominant with 70% ostial stenosis; SVG-PDA occluded; VIZCARRA Y graft to LAD and diagonal branch patent; [facility] [place] Right 05/04/2014 RIGHT CAROTID CATARACT EXTRACTION HX Bilateral 2015 COLONOSCOPY FLX DX W/COLLJ SPEC WHEN PFR 08/10/2014 CORONARY ARTERY BYPASS GRAFT 06/06/1997 CABG 2 vessel: VIZCARRA Y graft to LAD and diagonal branch; [facility], Dr. Valenzuela ECHOCARDIOGRAM 02/18/2018 normal LV systolic fxn; LVEF 60%; mild pHTN; no significant valvular abnormalities HEMORRHOIDECTOMY 1962 HOLTER 24 HR 07/14/2019 sinus rhythm, sinus bradycardia; min HR 33 bpm; max HR 98 bpm; avg HR 49 bpm INSERT INTRACORONARY STENT 2010 PCI/stent to LCX LASER GREENLIGHT PVP 2013 Prostate PACEMAKER IMPLANT 09/22/2019 PAST SURGICAL HISTORY OF Right 2004 RIGHT LEG FRACTURE WITH RODS PHARMACOLOGIC NUCLEAR STRESS 02/18/2018 no ischemia or scar SIGMOIDOSCOPY FLX DX W/COLLJ SPEC BR/WA IF PFRMD 06/19/08 TONSILLECTOMY PRIMARY/SECONDARY <AGE 12 1942 Tonsillectomy TRURL ELECTROSURG RESCJ PROSTATE BLEED C OMPLETE 2005 TURP VASECTOMY UNI/BI SPX W/POSTOP SEMEN EXAM S 1970 Physical Exam: OBJECTIVE: Constitutional: Pt is a well developed 86 year old male who is alert, oriented, cooperative and in no apparent distress. Eyes: Following during examination. No r edness or drainage. Respiratory: RR normal and n onlabored. Even breathing. No evidence of distress. Psychology: Patient is engag ed during conversation. Normal affect and mood. Does not appear depressed or anxious. NVSI unchanged from previous visit. Dermatological: Callus present to lateral aspect of righ t 5th metatarsal Callus present to right 1st metatarsal No open sores noted to b/l feet Thickening is noted to toenails 1-3 righ t and 3-5 left. Musculoskeletal/Orthopaedic: Patient has no pain to palpation of b/l feet Arthritis is noted to right 1st mtpj Rigid hammertoe is present to left 2nd t oe. Right 4th and 5th toe amputation is pres ent ASSESSMENT: (L85.9) Hyperkeratosis (primary encounte r diagnosis) (M20.41, M20.42) Hammer toes of both fee (B35.1) Onychomycosis (S98.131D) Amputation of little toe, rig ht, subsequent encounter ([facility]) PLAN: Callus reduced to noted loca tions (right 5th metatarsal and right 1st metatarsal) with dremmel. In order to perform a complete physical exam, limited shaving of callus area was performed. This incidenta l service is integral to the evaluation and management visit in order to appropriately manage and treat the patient (for their complaint or for this visit). Toenails reduced in thickening with drem marilia. F/u in 6 weeks or sooner if problems gloria se Contineu with wider shoes for hammertoe Aracelis Aceves DPM documented in this encounter 07-15-2022 Miscellaneous Formatting of this note migh t be different from the original. [facility] Notes Sorry about the delay in get ting back to you, I was out of the office yesterday. I have changed Art's appointment to September 10 @ 6 PM. Hope this will work, if not please contact the office. Formatting of this note might be differe nt from the original. Sorry about the delay in get ting back to you, I was out of the office yesterday. I have changed Art's appointment to September 10 @ 6 PM. Hope this will work, if not please contact the office. documented in this encounter 07-11-2022 Miscellaneous Formatting of this note migh t be different from the original. [facility] Notes Schedule appointment with or Niyah rhoades rding driving concerns. documented in this encounter 06-24-2022 Note HNO ID: [id number] [facility] Author: Aracelis Aceves [place] Service: ? Author Type: Physician Type: Progress Notes Filed: 06/29/2022 10:43 PM Note Text: FOLLOW UP PODIATRIC OFFICE VISIT Chief Complaint: This 86 year old who pr esents for follow up:callus of b/l feet Patient has been wearing extra depth jackelyn es and wearing hammertoe pad to left 2nd toe PAIN EVALUATION No data found in the last 1 encounters. Hemoglobin A1C Date Value Ref Range Status 08/12/2017 5.8 (H) 4.3 - 5.6 % Final Comment: [place] [employer] guidelines indicate that patients with HgbA1c in the range 5.7-6.4% are at increased risk for development of diabetes, and intervention by lifestyle modification m ay be beneficial. HgbA1c greater or equal to 6.5% is considered diagnostic o f diabetes. 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 (HCC) 04/04/2021 - Esophageal reflux - Hemorrhage of rectum and anus - History of prediabetes 08/05/2016 - Hyperlipidemia - Hypertrophy of prostate with urinary o bstruction and other lower urinary tract symptoms (LUTS) 03/19/2006 - HYPERURICEMIA 09/29/2006 - Idiopathic peripheral neuropathy 010 - Internal hemorrhoids without mention o f complication - Interstitial lung disease ([facility]) 017 - Mixed hyperlipidemia Hyperlipidemia - 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 07/08/2010 - OM (osteomyelitis) ([facility]) 04/03/2010 - Osteomyelitis of fifth toe of right fo ot ([facility]) 01/23/2020 - PAC (premature atrial contraction) - 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 - Presence of cardiac pacemaker 09/22/20 19 [email or web address] dual-chamber pacemaker system; indication: symptomatic bradycardia due to sinus node dysfunctio n; system will be MRI conditional after 6 weeks post implant - Psoriasis and similar disorders arthritis - PSORIATIC ARTHRITIS 09/29/2006 - PVC (premature ventricular contraction ) - Sinus node dysfunction ([facility]) 09/22/2019 - Unspecified essential hypertension Essential hypertension - Unspecified hypothyroidism - Urethral stricture 04/04/2012 - Urinary retention 03/16/2013 - Vasculitis ([facility]) 04/01/2017 Current Outpatient Medications Medication Sig - lisinopril (ZESTRIL, PRINIVIL) 10 mg t ablet Take 1 tablet by mouth once daily. - gabapentin (NEURONTIN) 100 mg capsule Take 1 capsule by mouth daily at bedtime for 180 days. - cyanocobalamin (VITAMIN B-12) 1,000 mc g tab Take 1 tablet by mouth once daily. - triamcinolone acetonide (NASACORT) 55 mcg nasal inhaler Use 2 Sprays in the nose once daily. - donepezil (ARICEPT) 10 mg tablet Take 1 tablet by mouth daily at bedtime. - pravastatin (PRAVACHOL) 40 mg tablet T albertina 1 tablet by mouth every morning. - finasteride (PROSCAR) 5 mg tablet Take 1 tablet by mouth once daily. - allopurinol (ZYLOPRIM) 300 mg tablet T albertina 1 tablet by mouth once daily. - clopidogrel (PLAVIX) 75 mg tablet Take 1 tablet by mouth once daily. - memantine (NAMENDA) 10 mg tablet Take 1 tablet by mouth once daily. - levothyroxine (SYNTHROID) 175 mcg tabl et Take 1 tablet by mouth once daily. For Thyroid. - tamsulosin (FLOMAX) 0.4 mg Take 1 caps ule by mouth every evening. - nitroglycerin sublingual (NITROQUICK) 0.4 mg SL tablet Dissolve 1 tablet under the tongue as needed. FOR CHEST PA IN. IF NO RELIEF CALL 911 - ofloxacin (OCUFLOX) 0.3 % ophthalmic s olution Use 1 Drop in both eyes. Use 1 drop in both eyes one day prior to eye injection. - [place]-3 Fatty Acids (FISH OIL) 500 mg cap Take 1 capsule by mouth once daily. - beta-carotene(a) w-c AND e/zn/cu(OCUVI TE PRESERVISION TAB) Take one(1) tablet daily. - CLARITIN 10 MG ORAL TAB Take one(1) ta blet daily. - ASPIRIN 81MG TABLET Take one (1) table t daily . - MULTIVITAMIN TABLET Take one(1) tablet daily. - donepezil (ARICEPT) 10 mg tablet Take 1 tablet by mouth every evening. - leflunomide (ARAVA) 10 mg tablet Take 10 mg by mouth once daily. No current facility-administered medicat ions for this visit. ALLERGIES Allergen Reactions - Bactrim [Sulfametho* Rash, Hives, Othe r: See Comments Elevated bilirubin - Cats - Gold Shots [Other] - Hyoscyamine Unknown - Metronidazole Unknown - Sesame Seed - Sulfa (Sulfonamide * Rash, Hives - Tree Nut Other: See Comments - Tree Nuts [Other] ANY NUT THAT GROWS ON TREES - Trimethoprim Rash, Hives PAST SURGICAL HISTORY Procedure Laterality Date - AMP (more content not included)... 06-24-2022 Note HNO ID: [id number] [facility] Author: Luh Garcia LPN [place] Service: ? Author Type: LICENSED NURSE Type: Progress Notes Filed: 06/29/2022 10:43 PM Note Text: AMB ROOMING INTAKE FLOWSHEET DATA Risk Screening Do you have concerns about personal safe ty or safety in the home?: No Patient presents with: Left Foot - Established Patient, Follow Up Right Foot - Established Patient, Follow Up Luh Garcia LPN 06-24-2022 Instructions Aracelis Aceves - 2 1:43 PM EDT [facility] Continue with hammertoe pad Continue with lotion to feet F/u in 5-6 weeks for callus documented in this encounter 06-24-2022 History of Present [facility] illness Narrative FOLLOW UP PODIATRIC OFFICE VISIT Chief Complaint: This 86 yea r old who presents for follow up:callus of b/l feet Patient has been wearing ext ra depth shoes and wearing hammertoe pad to left 2nd toe PAIN EVALUATION No data found in the last 1 encounters. Hemoglobin A1C Date Value Ref Range Status 08/12/2017 5.8 (H) 4.3 - 5.6 % Final Comment: [place] [employer] guidelines indicate that patients with HgbA1c in the range 5.7-6.4% are at increased risk for development of diabetes, and intervention by lifestyle modification m ay be beneficial. HgbA1c greater or equal to 6.5% is considered diagnostic o f diabetes. 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 ([facility]) 04/04/2021 Esophageal reflux Hemorrhage of rectum and anus History of prediabetes 08/05/2016 Hyperlipidemia Hypertrophy of prostate wit h urinary obstruction and other lower urinary tract symptoms (LUTS) 03/19/2006 HYPERURICEMIA 09/29/2006 Idiopathic peripheral neuropathy 03/28/20 10 Internal hemorrhoids without mention of complication Interstitial lung disease ([facility]) 05/18/20 17 Mixed hyperlipidemia Hyperlipidemia Occlusion and stenosis of c arotid artery without mention of cerebral infarction 07/08/2010 OM (osteomyelitis) ([facility]) 04/03/2010 Osteomyelitis of fifth toe of right anthony t ([facility]) 01/23/2020 PAC (premature atrial contraction) 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 cardiac pacemaker 9 [employer] dual-chamb er pacemaker system; indication: symptomatic bradycardia due to sinus node dysfunction; system will be MRI conditional after 6 weeks post implant Psoriasis and similar disorders arthritis PSORIATIC ARTHRITIS 09/29/2006 PVC (premature ventricular contraction) Sinus node dysfunction ([facility]) 09/22/2019 Unspecified essential hypertension Essential hypertension Unspecified hypothyroidism Urethral stricture 04/04/2012 Urinary retention 03/16/2013 Vasculitis ([facility]) 04/01/2017 Current Outpatient Medications Medication Sig lisinopril (ZESTRIL, PRINIV [place]) 10 mg tablet Take 1 tablet by mouth once daily. gabapentin (NEURONTIN) 100 mg capsule Take 1 capsule by mouth daily at bedtime for 180 days. cyanocobalamin (VITAMIN B-1 2) 1,000 mcg tab Take 1 tablet by mouth once daily. triamcinolone acetonide (NA SACORT) 55 mcg nasal inhaler Use 2 Sprays in the nose once daily. donepezil (ARICEPT) 10 mg tablet Take 1 tablet by mouth daily at bedtime. pravastatin (PRAVACHOL) 40 mg tablet Ta ke 1 tablet by mouth every morning. finasteride (PROSCAR) 5 mg tablet Take 1 tablet by mouth once daily. allopurinol (ZYLOPRIM) 300 mg tablet Ta ke 1 tablet by mouth once daily. clopidogrel (PLAVIX) 75 mg tablet Take 1 tablet by mouth once daily. memantine (NAMENDA) 10 mg tablet Take 1 tablet by mouth once daily. levothyroxine (SYNTHROID) 1 75 mcg tablet Take 1 tablet by mouth once daily. For Thyroid. tamsulosin (FLOMAX) 0.4 mg Take 1 capsu le by mouth every evening. nitroglycerin sublingual (N ITROQUICK) 0.4 mg SL tablet Dissolve 1 tablet under the tongue as needed. FOR CHEST PAIN. IF NO RELIEF CALL 911 ofloxacin (OCUFLOX) 0.3 % o phthalmic solution Use 1 Drop in both eyes. Use 1 drop in both eyes one day prior to eye injection. [place]-3 Fatty Acids (FISH OIL) 500 mg c ap Take 1 capsule by mouth once daily. beta-carotene(a) w-c & e/zn /cu(OCUVITE PRESERVISION TAB) Take one(1) tablet daily. CLARITIN 10 MG ORAL TAB Take one(1) tab let daily. ASPIRIN 81MG TABLET Take one (1) tablet daily . MULTIVITAMIN TABLET Take one(1) tablet daily. donepezil (ARICEPT) 10 mg tablet Take 1 tablet by mouth every evening. leflunomide (ARAVA) 10 mg tablet Take 1 0 mg by mouth once daily. No current facility-administered medicat ions for this visit. ALLERGIES Allergen Reactions Bactrim [Sulfametho* Rash, Hives, Other : See Comments Elevated bilirubin Cats Gold Shots [Other] Hyoscyamine Unknown Metronidazole Unknown Sesame Seed Sulfa (Sulfonamide * Rash, Hives Tree Nut Other: See Comments Tree Nuts [Other] ANY NUT THAT GROWS ON TREES Trimethoprim Rash, Hives PAST SURGICAL HISTORY Procedure Laterality Date AMPUTATE TOE; IP JOINT 2010 Rt foot 4th toe AMPUTATION METATARSAL+TOE,SINGLE Right 01/23/2020 R 5th toe. 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 Gentile [facility] BUNIONECTOMY, [place]-TYPE Right 2009 Right foot CARDIAC CATH 01/28/2011 normal LV systolic fxn; norm al LM, occluded LAD; LCX 50% ostial, mid 80%; left PDA 50% prox; RCA small nondominant with 70% ostial stenosis; SVG-PDA occluded; VIZCARRA Y graft to LAD and diagonal branch patent; CAROTID SURGERY Left 1997 CAROTID-[place]-- left CAROTID SURGERY Right 05/04/2014 RIGHT CAROTID CATARACT EXTRACTION HX Bilateral 2016 COLONOSCOPY FLX DX W/COLLJ SPEC WHEN PF RMD 08/10/2014 CORONARY ARTERY BYPASS GRAFT 06/06/1997 CABG 2 vessel: VIZCARRA Y graft to LAD and diagonal branch; [facility], Dr. Valenzuela ECHOCARDIOGRAM 02/18/2018 normal LV systolic fxn; LVEF 60%; mild pHTN; no significant valvular abnormalities HEMORRHOIDECTOMY 1963 HOLTER 24 HR 07/14/2019 sinus rhythm, sinus bradycardia; min HR 33 bpm; max HR 98 bpm; avg HR 49 bpm INSERT INTRACORONARY STENT 2010 PCI/stent to LCX LASER GREENLIGHT PVP 2013 Prostate PACEMAKER IMPLANT 09/22/2019 PAST SURGICAL HISTORY OF Right 2004 RIGHT LEG FRACTURE WITH RODS PHARMACOLOGIC NUCLEAR STRESS 02/18/2018 no ischemia or scar SIGMOIDOSCOPY FLX DX W/COLLJ SPEC BR/WA IF PFRMD 06/19/08 TONSILLECTOMY PRIMARY/SECONDARY <AGE 12 1941 Tonsillectomy TRURL ELECTROSURG RESCJ PROSTATE BLEED COMPLETE 2005 TURP VASECTOMY UNI/BI SPX W/POSTOP SEMEN EXA MS 1971 Physical Exam: OBJECTIVE: Constitutional: Pt is a well developed 86 year old male who is alert, oriented, cooperative and in no apparent distress. Eyes: Following during examination. No r edness or drainage. Respiratory: RR normal and n onlabored. Even breathing. No evidence of distress. Psychology: Patient is engag ed during conversation. Normal affect and mood. Does not appear depressed or anxious. NVSI unchanged from previous visit. Dermatological: Callus present to right 5th metatarsal, right 1st metatarsal and left 2nd toe. No ulceration present following debridement. Musculoskeletal/Orthopaedic: Patient has no pain to palpation of b/l feet Hammertoe presenet to left 2nd toe Right 4th and 5th toe amputation ASSESSMENT: Hyperkeratosis (primary encounter diagno sis) Pad [facility]peripheral [facility] disease[facility] Hammer toes of both feet PLAN: Callus present to left 2nd toe, right 5t h metatarsal and right 1st metatarsal In order to perform a comple te physical exam, limited shaving of callus area was performed. This incidental service is integral to the evaluation and management visit in order to appropriately manage an d treat the patient (for their complaint or for this visit). Continue with lotion to feet daily Continue with hammertoe pad F/u in 5-6 weeks for callus Aracelis Aceves DPM Formatting of this note might be differe nt from the original. AMB ROOMING INTAKE FLOWSHEET DATA Risk Screening Do you have concerns about personal safe ty or safety in the home?: No Patient presents with: Left Foot - Established Patient, Follow Up Right Foot - Established Patient, Follow Up Luh Garcia LPN documented in this encounter 06-04-2022 Note HNO ID: [id number] [facility] Author: Jason Snider MD [place] Service: ? Author Type: Physician Type: Progress Notes Filed: 06/04/2022 12:19 AM Note Text: This note was created using NoteWriter. Subjective Patient presents with: Follow Up Navid Cortes is a 86 year old male was here with his daughter for an earlier follow up. See My Chart message. Concerns were fatigue, digestive problems including fecal soili ng. History is limited by dementia as patient indicated concerns w ere not significant. 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 He still ken ve short distances and still felt safe driving. He was taking more naps, a nd woke up late more often, skipping his breakfast routine more ofte n. Other symptoms were vague lightheadedness. Dietary choices when ea ting out were not great. We reviewed his labs. Review of Systems Constitutional: Positive for appetite ch dillon. Negative for chills, diaphoresis, fever and unexpected weight change. HENT: Negative. Respiratory: Negative for chest tightnes s and shortness of breath. Cardiovascular: Negative. Gastrointestinal: Negative for abdominal pain, blood in stool, constipation, nausea and vomiting. Genitourinary: Negative for difficulty u rinating and dysuria. Musculoskeletal: Negative. 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 - gabapentin (NEURONTIN) 100 mg capsule Take 1 capsule by mouth daily at bedtime for 180 days. - cyanocobalamin (VITAMIN B-12) 1,000 mc g tab Take 1 tablet by mouth once daily. - triamcinolone acetonide (NASACORT) 55 mcg nasal inhaler Use 2 Sprays in the nose once daily. - donepezil (ARICEPT) 10 mg tablet Take 1 tablet by mouth every evening. - donepezil (ARICEPT) 10 mg tablet Take 1 tablet by mouth daily at bedtime. - pravastatin (PRAVACHOL) 40 mg tablet T albertina 1 tablet by mouth every morning. - finasteride (PROSCAR) 5 mg tablet Take 1 tablet by mouth once daily. - allopurinol (ZYLOPRIM) 300 mg tablet T albertina 1 tablet by mouth once daily. - clopidogrel (PLAVIX) 75 mg tablet Take 1 tablet by mouth once daily. - memantine (NAMENDA) 10 mg tablet Take 1 tablet by mouth once daily. - levothyroxine (SYNTHROID) 175 mcg tabl et Take 1 tablet by mouth once daily. For Thyroid. - tamsulosin (FLOMAX) 0.4 mg Take 1 caps ule by mouth every evening. - leflunomide (ARAVA) 10 mg tablet Take 10 mg by mouth once daily. - nitroglycerin sublingual (NITROQUICK) 0.4 mg SL tablet Dissolve 1 tablet under the tongue as needed. FOR CHEST PA IN. IF NO RELIEF CALL 911 - ofloxacin (OCUFLOX) 0.3 % ophthalmic s olution Use 1 Drop in both eyes. Use 1 drop in both eyes one day prior to eye injection. - [place]-3 Fatty Acids (FISH OIL) 500 mg cap Take 1 capsule by mouth once daily. - beta-carotene(a) w-c AND e/zn/cu(OCUVI TE PRESERVISION TAB) Take one(1) tablet daily. - CLARITIN 10 MG ORAL TAB Take one(1) ta blet daily. - ASPIRIN 81MG TABLET Take one (1) table t daily . - MULTIVITAMIN TABLET Take one(1) tablet daily. No current facility-administered medicat ions for this visit. Objective BP 136/80 Pulse 60 Wt 79.4 kg (175 l b) SpO2 96% BMI 25.11 kg/m? Physical Exam Constitutional: Appearance: He is not ill-appearing. HENT: Head: Normocephalic. Eyes: General: No scleral icterus. Conjunctiva/sclera: Conjunctivae normal. Cardiovascular: Rate and Rhythm: Normal rate and regular rhythm. Pulmonary: Breath sounds: Normal breath sounds. Abdominal: General: Bowel sounds are normal. There is no distension. Palpations: Abdomen is soft. Tenderness: There is no abdominal tender ness. Musculoskeletal: Right lower leg: No edema. Left lower leg: No edema. Neurological: General: No focal deficit present. Mental Status: He is alert. Gait: Gait normal. Component Latest Ref Rng AND Units 2021 Protein, Total 6.3 - 8.0 g/dL 6.1 (L) Albumin 3.9 - 4.9 g/dL 3.8 (L) Calcium 8.5 - 10.2 mg/dL 9.4 Bilirubin, Total 0.2 - 1.3 mg/dL 0.5 Alkaline Phosphatase 38 - 113 U/L 93 AST 14 - 40 U/L 21 ALT 10 - 54 U/L 14 Glucose 74 - 99 mg/dL 103 (H) BUN 9 - 24 mg/dL 26 (H) Creatinine 0.73 - 1.22 mg/dL 1.40 (H) Sodium 136 - 144 mmol/L 136 [place] (more content not included)... 06-03-2022 History of Present [facility] illness Narrative This note was created using Taktioriter. Subjective Patient presents with: Follow Up Navid Cortes is a 86 year old male was here with his daughter for an earlier follow up. See My Chart message. Concerns were fatigue, digestive problems including fecal soiling. History is limited by ming santiago as patient indicated concerns were not significant. 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 He still drove short distances and still felt safe driving. He was taking more naps, and woke up late mor e often, skipping his breakf ast routine more often. Other symptoms were vague lightheadedness. Dietary choices when eating out were not great. We reviewed his labs. Review of Systems Constitutional: Positive for appetite change. Negative for chills, diaphoresis, fever and unexpected weight change. HENT: Negative. Respiratory: Negative for chest tightnes s and shortness of breath. Cardiovascular: Negative. Gastrointestinal: Negative f or abdominal pain, blood in stool, constipation, nausea and vomiting. Genitourinary: Negative for difficulty u rinating and dysuria. Musculoskeletal: Negative. 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 gabapentin (NEURONTIN) 100 mg capsule Take 1 capsule by mouth daily at bedtime for 180 days. cyanocobalamin (VITAMIN B-1 2) 1,000 mcg tab Take 1 tablet by mouth once daily. triamcinolone acetonide (NA SACORT) 55 mcg nasal inhaler Use 2 Sprays in the nose once daily. donepezil (ARICEPT) 10 mg tablet Take 1 tablet by mouth every evening. donepezil (ARICEPT) 10 mg tablet Take 1 tablet by mouth daily at bedtime. pravastatin (PRAVACHOL) 40 mg tablet Ta ke 1 tablet by mouth every morning. finasteride (PROSCAR) 5 mg tablet Take 1 tablet by mouth once daily. allopurinol (ZYLOPRIM) 300 mg tablet Ta ke 1 tablet by mouth once daily. clopidogrel (PLAVIX) 75 mg tablet Take 1 tablet by mouth once daily. memantine (NAMENDA) 10 mg tablet Take 1 tablet by mouth once daily. levothyroxine (SYNTHROID) 1 75 mcg tablet Take 1 tablet by mouth once daily. For Thyroid. tamsulosin (FLOMAX) 0.4 mg Take 1 capsu le by mouth every evening. leflunomide (ARAVA) 10 mg tablet Take 1 0 mg by mouth once daily. nitroglycerin sublingual (N ITROQUICK) 0.4 mg SL tablet Dissolve 1 tablet under the tongue as needed. FOR CHEST PAIN. IF NO RELIEF CALL 911 ofloxacin (OCUFLOX) 0.3 % o phthalmic solution Use 1 Drop in both eyes. Use 1 drop in both eyes one day prior to eye injection. [place]-3 Fatty Acids (FISH OIL) 500 mg c ap Take 1 capsule by mouth once daily. beta-carotene(a) w-c & e/zn /cu(OCUVITE PRESERVISION TAB) Take one(1) tablet daily. CLARITIN 10 MG ORAL TAB Take one(1) tab let daily. ASPIRIN 81MG TABLET Take one (1) tablet daily . MULTIVITAMIN TABLET Take one(1) tablet daily. No current facility-administered medicat ions for this visit. Objective BP 136/80 Pulse 60 Wt 79.4 kg (175 l b) SpO2 96% BMI 25.11 kg/m Physical Exam Constitutional: Appearance: He is not ill-appearing. HENT: Head: Normocephalic. Eyes: General: No scleral icterus. Conjunctiva/sclera: Conjunctivae normal. Cardiovascular: Rate and Rhythm: Normal rate and regular rhythm. Pulmonary: Breath sounds: Normal breath sounds. Abdominal: General: Bowel sounds are normal. There is no distension. Palpations: Abdomen is soft. Tenderness: There is no abdominal tender ness. Musculoskeletal: Right lower leg: No edema. Left lower leg: No edema. Neurological: General: No focal deficit present. Mental Status: He is alert. Gait: Gait normal. Component Latest Ref Rng & Units 05/18/20 22 Protein, Total 6.3 - 8.0 g/dL 6.1 (L) Albumin 3.9 - 4.9 g/dL 3.8 (L) Calcium 8.5 - 10.2 mg/dL 9.4 Bilirubin, Total 0.2 - 1.3 mg/dL 0.5 Alkaline Phosphatase 38 - 113 U/L 93 AST 14 - 40 U/L 21 ALT 10 - 54 U/L 14 Glucose 74 - 99 mg/dL 103 (H) BUN 9 - 24 mg/dL 26 (H) Creatinine 0.73 - 1.22 mg/dL 1.40 (H) Sodium 136 - 144 mmol/L 136 Potassium 3.7 - 5.1 mmol/L 4.6 Chloride 97 - 105 mmol/L 102 CO2 22 - 30 mmol/L 26 Anion Gap 9 - 18 mmol/L 8 (L) eGFR >=60 mL/min/1.73m 49 (L) WBC 3.70 - 11.00 k/uL 6.02 RBC 4.20 - 6.00 m/uL 4.33 Hemoglobin 13.0 - 17.0 g/dL 13.1 Hematocrit 39.0 - 51.0 % 40.2 MCV 80.0 - 100.0 fL 92.8 MCH 26.0 - 34.0 pg 30.3 MCHC 30.5 - 36.0 g/dL 32.6 RDW-CV 11.5 - 15.0 % 13.4 Platelet Count 150 - 400 k/uL 167 MPV 9.0 - 12.7 fL 9.7 Absolute nRBC <0.01 k/uL <0.01 TSH 0.270 - 4.200 mIU/L 2.130 Vitamin B12 232-1,245 pg/mL 428 Assessment and Plan ASSESSMENT/PLAN: 1. Asthenia - ICD9: 780.79, ICD10: R53.1 (primary diagnosis) - CYANOCOBALAMIN (VIT B-12) 1,000 MCG TA BLET 2. Essential hypertension - ICD9: 401.9, ICD10: I10 - fair control - Continue current medication(s) - Recommended regular aerobic exercise. - Goal of BP <130/80 - LISINOPRIL 10 MG TABLET 3. Dizziness - ICD9: 780.4, ICD10: R42 Reduce gabapentin. 4. Dementia of the Alzheimer 's type with late onset without behavioral disturbance (HCC) - ICD9: 331.0, 294.10, ICD10: G30.1, F02.80 Stable. 5. Mild protein-calorie malnutrition (HC C) - ICD9: 263.1, ICD10: E44.1 Protein shakes. 6. Stage 3a chronic kidney disease (HCC) - ICD9: 585.3, ICD10: N18.31 Hydration stressed. 7. Vasomotor rhinitis - ICD9: 477.9, ICD 10: J30.0 Try steroid nasal spray. - TRIAMCINOLONE ACETONIDE 55 MCG NASAL S PRAY AEROSOL Jason Snider MD documented in this encounter 05-15-2022 Miscellaneous Formatting of this note migh t be different from the original. [facility] Notes Patient's daughter calls and sets up reji ointment on 05/29/2022. Swathi Stafford RN Left message with Jose David to return call for follow up in 1-2 weeks. ASSESSMENT/PLAN: 1. General weakness - ICD9: 780.79, ICD1 0: R53.1 (primary diagnosis) - CBC - COMP METABOLIC PANEL - TSH BLD - VITAMIN B12 BLOOD 2. Diarrhea, unspecified type - ICD9: 78 7.91, ICD10: R19.7 Schedule office visit with me or Niyah in 1-2 weeks with non fasting labs. Jason Snider MD documented in this encounter 05-13-2022 Note HNO ID: [id number] [facility] Author: Aracelis Aceves [place] Service: ? Author Type: Physician Type: Progress Notes Filed: 05/18/2022 7:52 AM Note Text: FOLLOW UP PODIATRIC OFFICE VISIT Chief Complaint: This 86 year old who pr esents for follow up:callus of both feet. Patient presents to clinic for follow-up callus. He is using hammertoe pad and wider new balance shoes . He has no issues Medical Collections states he did bump his toenail and it is black. PAIN EVALUATION No data found in the last 1 encounters. Hemoglobin A1C Date Value Ref Range Status 08/12/2017 5.8 (H) 4.3 - 5.6 % Final Comment: [place] [employer] guidelines indicate that patients with HgbA1c in the range 5.7-6.4% are at increased risk for development of diabetes, and intervention by lifestyle modification m ay be beneficial. HgbA1c greater or equal to 6.5% is considered diagnostic o f diabetes. 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 (HCC) 04/04/2021 - Esophageal reflux - Hemorrhage of rectum and anus - History of prediabetes 08/05/2016 - Hyperlipidemia - Hypertrophy of prostate with urinary o bstruction and other lower urinary tract symptoms (LUTS) 03/19/2006 - HYPERURICEMIA 09/29/2006 - Idiopathic peripheral neuropathy 010 - Internal hemorrhoids without mention o f complication - Interstitial lung disease ([facility]) 017 - Mixed hyperlipidemia Hyperlipidemia - 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 07/08/2010 - OM (osteomyelitis) ([facility]) 04/03/2010 - Osteomyelitis of fifth toe of right fo ot ([facility]) 01/23/2020 - PAC (premature atrial contraction) - 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 - Presence of cardiac pacemaker 09/22/20 19 [employer] Guidance dual-chamber pacemaker system; indication: symptomatic bradycardia due to sinus node dysfunctio n; system will be MRI conditional after 6 weeks post implant - Psoriasis and similar disorders arthritis - PSORIATIC ARTHRITIS 09/29/2006 - PVC (premature ventricular contraction ) - Sinus node dysfunction ([facility]) 09/22/2019 - Unspecified essential hypertension Essential hypertension - Unspecified hypothyroidism - Urethral stricture 04/04/2012 - Urinary retention 03/16/2013 - Vasculitis ([facility]) 04/01/2017 Current Outpatient Medications Medication Sig - donepezil (ARICEPT) 10 mg tablet Take 1 tablet by mouth every evening. - pravastatin (PRAVACHOL) 40 mg tablet T albertina 1 tablet by mouth every morning. - finasteride (PROSCAR) 5 mg tablet Take 1 tablet by mouth once daily. - allopurinol (ZYLOPRIM) 300 mg tablet T albertina 1 tablet by mouth once daily. - clopidogrel (PLAVIX) 75 mg tablet Take 1 tablet by mouth once daily. - memantine (NAMENDA) 10 mg tablet Take 1 tablet by mouth once daily. - levothyroxine (SYNTHROID) 175 mcg tabl et Take 1 tablet by mouth once daily. For Thyroid. - lisinopril (ZESTRIL, PRINIVIL) 10 mg t ablet Take 1 tablet by mouth once daily. - gabapentin (NEURONTIN) 300 mg capsule Take 1 capsule by mouth every evening. - tamsulosin (FLOMAX) 0.4 mg Take 1 caps ule by mouth every evening. - leflunomide (ARAVA) 10 mg tablet Take 10 mg by mouth once daily. - nitroglycerin sublingual (NITROQUICK) 0.4 mg SL tablet Dissolve 1 tablet under the tongue as needed. FOR CHEST PA IN. IF NO RELIEF CALL 911 - ofloxacin (OCUFLOX) 0.3 % ophthalmic s olution Use 1 Drop in both eyes. Use 1 drop in both eyes one day prior to eye injection. - [place]-3 Fatty Acids (FISH OIL) 500 mg cap Take 1 capsule by mouth once daily. - beta-carotene(a) w-c AND e/zn/cu(OCUVI TE PRESERVISION TAB) Take one(1) tablet daily. - CLARITIN 10 MG ORAL TAB Take one(1) ta blet daily. - ASPIRIN 81MG TABLET Take one (1) table t daily . - MULTIVITAMIN TABLET Take one(1) tablet daily. - donepezil (ARICEPT) 10 mg tablet Take 1 tablet by mouth daily at bedtime. No current facility-administered medicat ions for this visit. ALLERGIES Allergen Reactions - Bactrim [Sulfametho* Rash, Hives, Othe r: See Comments Elevated bilirubin - Cats - Gold Shots [Other] - Hyoscyamine Unknown - Metronidazole Unknown - Sesame Seed - Sulfa (Sulfonamide * Rash, Hives - Tree Nut Other: See Comments - Tree Nuts [Other] ANY NUT THAT GROWS ON TREES - Trimethoprim Rash, Hives PAST SURGICAL HISTORY Procedure Laterality Date - AMPUTATE TOE; IP JOINT 2009 Rt foot 4th toe - AMPUTATION METATARSAL+TOE,SINGLE Right 01/23/2020 R (more content not included)... 05-13-2022 Note HNO ID: [id number] [facility] Author: Madeleine Bojorquez [place] Service: ? Author Type: ? Type: Progress Notes Filed: 05/18/2022 7:52 AM Note Text: Patient presents with: Right 3rd Toe - Other, black nail Left Foot - Follow Up, Callous Right Foot - Follow Up, Callous AMB ROOMING INTAKE FLOWSHEET DATA Risk Screening Do you have concerns about personal safe ty or safety in the home?: No No pain. 05-13-2022 Instructions Aracelis Aceves - 2:42 PM EDT [facility] Continue with lotion to feet and hammert oe pads Follow-up in 6 weeks documented in this encounter 05-13-2022 History of Present [facility] illness Narrative FOLLOW UP PODIATRIC OFFICE VISIT Chief Complaint: This 86 yea r old who presents for follow up:callus of both feet. Patient presents to clinic f or follow-up callus. He is using hammertoe pad and wider new balance shoes . He has no issues Medical Collections states he did bump his toenail and it is black. PAIN EVALUATION No data found in the last 1 encounters. Hemoglobin A1C Date Value Ref Range Status 08/12/2017 5.8 (H) 4.3 - 5.6 % Final Comment: [place] [employer] guidelines indicate that patients with HgbA1c in the range 5.7-6.4% are at increased risk for development of diabetes, and intervention by lifestyle modification m ay be beneficial. HgbA1c greater or equal to 6.5% is considered diagnostic o f diabetes. 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 ([facility]) 04/04/2021 Esophageal reflux Hemorrhage of rectum and anus History of prediabetes 08/05/2016 Hyperlipidemia Hypertrophy of prostate wit h urinary obstruction and other lower urinary tract symptoms (LUTS) 03/19/2006 HYPERURICEMIA 09/29/2006 Idiopathic peripheral neuropathy 03/28/20 10 Internal hemorrhoids without mention of complication Interstitial lung disease ([facility]) 05/18/20 17 Mixed hyperlipidemia Hyperlipidemia Occlusion and stenosis of c arotid artery without mention of cerebral infarction 07/08/2010 OM (osteomyelitis) ([facility]) 04/03/2010 Osteomyelitis of fifth toe of right anthony t ([facility]) 01/23/2020 PAC (premature atrial contraction) 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 cardiac pacemaker 9 BOLD Guidance dual-chamb er pacemaker system; indication: symptomatic bradycardia due to sinus node dysfunction; system will be MRI conditional after 6 weeks post implant Psoriasis and similar disorders arthritis PSORIATIC ARTHRITIS 09/29/2006 PVC (premature ventricular contraction) Sinus node dysfunction (HCC) 09/22/2019 Unspecified essential hypertension Essential hypertension Unspecified hypothyroidism Urethral stricture 04/04/2012 Urinary retention 03/16/2013 Vasculitis (HCC) 04/01/2017 Current Outpatient Medications Medication Sig donepezil (ARICEPT) 10 mg tablet Take 1 tablet by mouth every evening. pravastatin (PRAVACHOL) 40 mg tablet Ta ke 1 tablet by mouth every morning. finasteride (PROSCAR) 5 mg tablet Take 1 tablet by mouth once daily. allopurinol (ZYLOPRIM) 300 mg tablet Ta ke 1 tablet by mouth once daily. clopidogrel (PLAVIX) 75 mg tablet Take 1 tablet by mouth once daily. memantine (NAMENDA) 10 mg tablet Take 1 tablet by mouth once daily. levothyroxine (SYNTHROID) 1 75 mcg tablet Take 1 tablet by mouth once daily. For Thyroid. lisinopril (ZESTRIL, PRINIV [place]) 10 mg tablet Take 1 tablet by mouth once daily. gabapentin (NEURONTIN) 300 mg capsule T albertina 1 capsule by mouth every evening. tamsulosin (FLOMAX) 0.4 mg Take 1 capsu le by mouth every evening. leflunomide (ARAVA) 10 mg tablet Take 1 0 mg by mouth once daily. nitroglycerin sublingual (N ITROQUICK) 0.4 mg SL tablet Dissolve 1 tablet under the tongue as needed. FOR CHEST PAIN. IF NO RELIEF CALL 911 ofloxacin (OCUFLOX) 0.3 % o phthalmic solution Use 1 Drop in both eyes. Use 1 drop in both eyes one day prior to eye injection. [place]-3 Fatty Acids (FISH OIL) 500 mg c ap Take 1 capsule by mouth once daily. beta-carotene(a) w-c & e/zn /cu(OCUVITE PRESERVISION TAB) Take one(1) tablet daily. CLARITIN 10 MG ORAL TAB Take one(1) tab let daily. ASPIRIN 81MG TABLET Take one (1) tablet daily . MULTIVITAMIN TABLET Take one(1) tablet daily. donepezil (ARICEPT) 10 mg tablet Take 1 tablet by mouth daily at bedtime. No current facility-administered medicat ions for this visit. ALLERGIES Allergen Reactions Bactrim [Sulfametho* Rash, Hives, Other : See Comments Elevated bilirubin Cats Gold Shots [Other] Hyoscyamine Unknown Metronidazole Unknown Sesame Seed Sulfa (Sulfonamide * Rash, Hives Tree Nut Other: See Comments Tree Nuts [Other] ANY NUT THAT GROWS ON TREES Trimethoprim Rash, Hives PAST SURGICAL HISTORY Procedure Laterality Date AMPUTATE TOE; IP JOINT 2009 Rt foot 4th toe AMPUTATION METATARSAL+TOE,SINGLE Right 01/23/2020 R 5th toe. 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 Gentile [facility] BUNIONECTOMY, [place]-TYPE Right 2009 Right foot CARDIAC CATH 01/28/2011 normal LV systolic fxn; norm al LM, occluded LAD; LCX 50% ostial, mid 80%; left PDA 50% prox; RCA small nondominant with 70% ostial stenosis; SVG-PDA occluded; VIZCARRA Y graft to LAD and diagonal branch patent; CAROTID SURGERY Left 1997 CAROTID-[place]-- left CAROTID SURGERY Right 05/04/2014 RIGHT CAROTID CATARACT EXTRACTION HX Bilateral 2016 COLONOSCOPY FLX DX W/COLLJ SPEC WHEN PF RMD 08/10/2014 CORONARY ARTERY BYPASS GRAFT 06/06/1997 CABG 2 vessel: VIZCARRA Y graft to LAD and diagonal branch; [facility], Dr. Valenzuela ECHOCARDIOGRAM 02/18/2018 normal LV systolic fxn; LVEF 60%; mild pHTN; no significant valvular abnormalities HEMORRHOIDECTOMY 1962 HOLTER 24 HR 07/14/2019 sinus rhythm, sinus bradycardia; min HR 33 bpm; max HR 98 bpm; avg HR 49 bpm INSERT INTRACORONARY STENT 2010 PCI/stent to LCX LASER GREENLIGHT PVP 2013 Prostate PACEMAKER IMPLANT 09/22/2019 PAST SURGICAL HISTORY OF Right 2004 RIGHT LEG FRACTURE WITH RODS PHARMACOLOGIC NUCLEAR STRESS 02/18/2018 no ischemia or scar SIGMOIDOSCOPY FLX DX W/COLLJ SPEC BR/WA IF PFRMD 06/19/08 TONSILLECTOMY PRIMARY/SECONDARY <AGE 12 1942 Tonsillectomy TRURL ELECTROSURG RESCJ PROSTATE BLEED COMPLETE 2005 TURP VASECTOMY UNI/BI SPX W/POSTOP SEMEN EXA MS 1971 Physical Exam: OBJECTIVE: Constitutional: Pt is a well developed 86 year old male who is alert, oriented, cooperative and in no apparent distress. Eyes: Following during examination. No r edness or drainage. Respiratory: RR normal and n onlabored. Even breathing. No evidence of distress. Psychology: Patient is eng ed during conversation. Normal affect and mood. Does not appear depressed or anxious. NVSI unchanged from previous visit. Dermatological: Nails 1-5 left and 1-3 right are thick. The right 2nd toenail is black but new nail is found to be growing beneath. No nail bed laceation is noted. Callus is noted to left 2nd toe distal t uft. No ulceration is noted Callus is noted to right 1st metatarsal and right 5th metatarsal. No ulceration is noted. Musculoskeletal/Orthopaedic: Patient has no pain to palpation of b/l feet There is amputation of right 2nd and 3rd toe. There is hammertoe of left 2nd toe. ASSESSMENT: (L85.9) Hyperkeratosis (primary encounte r diagnosis) (I73.9) PAD (peripheral artery disease) ([facility]) (M20.41, M20.42) Hammer toes of both fee t (B35.1) Onychomycosis (S98.131D) Amputation of little toe, rig ht, subsequent encounter ([facility]) PLAN: 1. Callus to b/l feet reduce d with dremmel. Continue with hammertoe pad to left foot to help reduce shear forces to tip of 2nd toe. 2. Toenails 1-5 left and 1-3 right debri ded in length and thickness 3. Continue with wider shoes 4. Continue with lotion to feet 5. F/u in 5 weeks for callus Aracelis Aceves DPM Patient presents with: Right 3rd Toe - Other, black nail Left Foot - Follow Up, Callous Right Foot - Follow Up, Callous AMB ROOMING INTAKE FLOWSHEET DATA Risk Screening Do you have concerns about personal safe ty or safety in the home?: No No pain. documented in this encounter 04-01-2022 Note HNO ID: [id number] [facility] Author: Aracelis Aceves [place] Service: ? Author Type: Physician Type: Progress Notes Filed: 03/31/2022 11:03 PM Note Text: FOLLOW UP PODIATRIC OFFICE VISIT Chief Complaint: This 86 year old who pr esents for follow up:callus of right 5th metatarsal and hammertoe of le ft 2nd toe Patient presents to clinic for follow-up evaluation of b/l feet. He has callus of right 5th metatarsal th at remains stable without ulceration He also is here for hammertoe follow-up of left 2nd toe. He denies wounds to either of his feet. He is using hamme rtoe pad for the left 2nd toe which is helping. Patient has no other complaints. PAIN EVALUATION No data found in the last 1 encounters. Hemoglobin A1C Date Value Ref Range Status 08/12/2017 5.8 (H) 4.3 - 5.6 % Final Comment: [place] [employer] guidelines indicate that patients with HgbA1c in the range 5.7-6.4% are at increased risk for development of diabetes, and intervention by lifestyle modification m ay be beneficial. HgbA1c greater or equal to 6.5% is considered diagnostic o f diabetes. 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 (HCC) 04/04/2021 - Esophageal reflux - Hemorrhage of rectum and anus - History of prediabetes 08/05/2016 - Hyperlipidemia - Hypertrophy of prostate with urinary o bstruction and other lower urinary tract symptoms (LUTS) 03/19/2006 - HYPERURICEMIA 09/29/2006 - Idiopathic peripheral neuropathy 010 - Internal hemorrhoids without mention o f complication - Interstitial lung disease ([facility]) 017 - Mixed hyperlipidemia Hyperlipidemia - 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 07/08/2010 - OM (osteomyelitis) ([facility]) 04/03/2010 - Osteomyelitis of fifth toe of right fo ot ([facility]) 01/23/2020 - PAC (premature atrial contraction) - 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 - Presence of cardiac pacemaker 09/22/20 19 [place] [employer] dual-chamber pacemaker system; indication: symptomatic bradycardia due to sinus node dysfunctio n; system will be MRI conditional after 6 weeks post implant - Psoriasis and similar disorders arthritis - PSORIATIC ARTHRITIS 09/29/2006 - PVC (premature ventricular contraction ) - Sinus node dysfunction ([facility]) 09/22/2019 - Unspecified essential hypertension Essential hypertension - Unspecified hypothyroidism - Urethral stricture 04/04/2012 - Urinary retention 03/16/2013 - Vasculitis ([facility]) 04/01/2017 Current Outpatient Medications Medication Sig - donepezil (ARICEPT) 10 mg tablet Take 1 tablet by mouth every evening. - donepezil (ARICEPT) 10 mg tablet Take 1 tablet by mouth daily at bedtime. - pravastatin (PRAVACHOL) 40 mg tablet T albertina 1 tablet by mouth every morning. - finasteride (PROSCAR) 5 mg tablet Take 1 tablet by mouth once daily. - allopurinol (ZYLOPRIM) 300 mg tablet T albertina 1 tablet by mouth once daily. - clopidogrel (PLAVIX) 75 mg tablet Take 1 tablet by mouth once daily. - memantine (NAMENDA) 10 mg tablet Take 1 tablet by mouth once daily. - levothyroxine (SYNTHROID) 175 mcg tabl et Take 1 tablet by mouth once daily. For Thyroid. - lisinopril (ZESTRIL, PRINIVIL) 10 mg t ablet Take 1 tablet by mouth once daily. - gabapentin (NEURONTIN) 300 mg capsule Take 1 capsule by mouth every evening. - tamsulosin (FLOMAX) 0.4 mg Take 1 caps ule by mouth every evening. - triamcinolone acetonide (KENALOG) 0.1 % ointment Apply to affected area once daily. - leflunomide (ARAVA) 10 mg tablet Take 10 mg by mouth once daily. - nitroglycerin sublingual (NITROQUICK) 0.4 mg SL tablet Dissolve 1 tablet under the tongue as needed. FOR CHEST PA IN. IF NO RELIEF CALL 911 - ofloxacin (OCUFLOX) 0.3 % ophthalmic s olution Use 1 Drop in both eyes. Use 1 drop in both eyes one day prior to eye injection. - [place]-3 Fatty Acids (FISH OIL) 500 mg cap Take 1 capsule by mouth once daily. - beta-carotene(a) w-c AND e/zn/cu(OCUVI TE PRESERVISION TAB) Take one(1) tablet daily. - CLARITIN 10 MG ORAL TAB Take one(1) ta blet daily. - ASPIRIN 81MG TABLET Take one (1) table t daily . - MULTIVITAMIN TABLET Take one(1) tablet daily. No current facility-administered medicat ions for this visit. ALLERGIES Allergen Reactions - Bactrim [Sulfametho* Rash, Hives, Othe r: See Comments Elevated bilirubin - Cats - Gold Shots [Other] - Hyoscyamine Unknown - Metronidazole Unknown - Sesame Seed - Sulfa (Sulf (more content not included )... 03-31-2022 History of Present [facility] illness Narrative FOLLOW UP PODIATRIC OFFICE VISIT Chief Complaint: This 86 yea r old who presents for follow up:callus of right 5th metatarsal and hammertoe of left 2nd toe Patient presents to clinic for follow-up evaluation of b/l feet. He has callus of right 5th metatarsal th at remains stable without ulceration He also is here for hammerto e follow-up of left 2nd toe. He denies wounds to either of his feet. He is using hammertoe pad for the left 2nd toe which is helping. Patient has no other complaints. PAIN EVALUATION No data found in the last 1 encounters. Hemoglobin A1C Date Value Ref Range Status 08/12/2017 5.8 (H) 4.3 - 5.6 % Final Comment: [place] [employer] guidelines indicate that patients with HgbA1c in the range 5.7-6.4% are at increased risk for development of diabetes, and intervention by lifestyle modification m ay be beneficial. HgbA1c greater or equal to 6.5% is considered diagnostic o f diabetes. 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 ([facility]) 04/04/2021 Esophageal reflux Hemorrhage of rectum and anus History of prediabetes 08/05/2016 Hyperlipidemia Hypertrophy of prostate wit h urinary obstruction and other lower urinary tract symptoms (LUTS) 03/19/2006 HYPERURICEMIA 09/29/2006 Idiopathic peripheral neuropathy 03/28/20 10 Internal hemorrhoids without mention of complication Interstitial lung disease ([facility]) 05/18/20 17 Mixed hyperlipidemia Hyperlipidemia Occlusion and stenosis of c arotid artery without mention of cerebral infarction 07/08/2010 OM (osteomyelitis) ([facility]) 04/03/2010 Osteomyelitis of fifth toe of right anthony t ([facility]) 01/23/2020 PAC (premature atrial contraction) 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 cardiac pacemaker 9 BOLD Guidance dual-chamb er pacemaker system; indication: symptomatic bradycardia due to sinus node dysfunction; system will be MRI conditional after 6 weeks post implant Psoriasis and similar disorders arthritis PSORIATIC ARTHRITIS 09/29/2006 PVC (premature ventricular contraction) Sinus node dysfunction ([facility]) 09/22/2019 Unspecified essential hypertension Essential hypertension Unspecified hypothyroidism Urethral stricture 04/04/2012 Urinary retention 03/16/2013 Vasculitis ([facility]) 04/01/2017 Current Outpatient Medications Medication Sig donepezil (ARICEPT) 10 mg tablet Take 1 tablet by mouth every evening. donepezil (ARICEPT) 10 mg tablet Take 1 tablet by mouth daily at bedtime. pravastatin (PRAVACHOL) 40 mg tablet Ta ke 1 tablet by mouth every morning. finasteride (PROSCAR) 5 mg tablet Take 1 tablet by mouth once daily. allopurinol (ZYLOPRIM) 300 mg tablet Ta ke 1 tablet by mouth once daily. clopidogrel (PLAVIX) 75 mg tablet Take 1 tablet by mouth once daily. memantine (NAMENDA) 10 mg tablet Take 1 tablet by mouth once daily. levothyroxine (SYNTHROID) 1 75 mcg tablet Take 1 tablet by mouth once daily. For Thyroid. lisinopril (ZESTRIL, PRINIV [place]) 10 mg tablet Take 1 tablet by mouth once daily. gabapentin (NEURONTIN) 300 mg capsule T albertina 1 capsule by mouth every evening. tamsulosin (FLOMAX) 0.4 mg Take 1 capsu le by mouth every evening. triamcinolone acetonide (KE NALOG) 0.1 % ointment Apply to affected area once daily. leflunomide (ARAVA) 10 mg tablet Take 1 0 mg by mouth once daily. nitroglycerin sublingual (N ITROQUICK) 0.4 mg SL tablet Dissolve 1 tablet under the tongue as needed. FOR CHEST PAIN. IF NO RELIEF CALL 911 ofloxacin (OCUFLOX) 0.3 % o phthalmic solution Use 1 Drop in both eyes. Use 1 drop in both eyes one day prior to eye injection. [place]-3 Fatty Acids (FISH OIL) 500 mg c ap Take 1 capsule by mouth once daily. beta-carotene(a) w-c & e/zn /cu(OCUVITE PRESERVISION TAB) Take one(1) tablet daily. CLARITIN 10 MG ORAL TAB Take one(1) tab let daily. ASPIRIN 81MG TABLET Take one (1) tablet daily . MULTIVITAMIN TABLET Take one(1) tablet daily. No current facility-administered medicat ions for this visit. ALLERGIES Allergen Reactions Bactrim [Sulfametho* Rash, Hives, Other : See Comments Elevated bilirubin Cats Gold Shots [Other] Hyoscyamine Unknown Metronidazole Unknown Sesame Seed Sulfa (Sulfonamide * Rash, Hives Tree Nut Other: See Comments Tree Nuts [Other] ANY NUT THAT GROWS ON TREES Trimethoprim Rash, Hives PAST SURGICAL HISTORY Procedure Laterality Date AMPUTATE TOE; IP JOINT 2009 Rt foot 4th toe AMPUTATION METATARSAL+TOE,SINGLE Right 01/23/2020 R 5th toe. 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 Gentile [facility] BUNIONECTOMY, [place]-TYPE Right 2009 Right foot CARDIAC CATH 01/28/2011 normal LV systolic fxn; norm al LM, occluded LAD; LCX 50% ostial, mid 80%; left PDA 50% prox; RCA small nondominant with 70% ostial stenosis; SVG-PDA occluded; VIZCARRA Y graft to LAD and diagonal branch patent; CAROTID SURGERY Left 1997 CAROTID-[facility]-- left CAROTID SURGERY Right 05/04/2014 RIGHT CAROTID CATARACT EXTRACTION HX Bilateral 2015 COLONOSCOPY FLX DX W/COLLJ SPEC WHEN PF RMD 08/10/2014 CORONARY ARTERY BYPASS GRAFT 06/06/1997 CABG 2 vessel: VIZCARRA Y graft to LAD and diagonal branch; [facility], Dr. Valenzuela ECHOCARDIOGRAM 02/18/2018 normal LV systolic fxn; LVEF 60%; mild pHTN; no significant valvular abnormalities HEMORRHOIDECTOMY 1962 HOLTER 24 HR 07/14/2019 sinus rhythm, sinus bradycardia; min HR 33 bpm; max HR 98 bpm; avg HR 49 bpm INSERT INTRACORONARY STENT 2010 PCI/stent to LCX LASER GREENLIGHT PVP 2013 Prostate PACEMAKER IMPLANT 09/22/2019 PAST SURGICAL HISTORY OF Right 2004 RIGHT LEG FRACTURE WITH RODS PHARMACOLOGIC NUCLEAR STRESS 02/18/2018 no ischemia or scar SIGMOIDOSCOPY FLX DX W/COLLJ SPEC BR/WA IF PFRMD 06/19/08 TONSILLECTOMY PRIMARY/SECONDARY <AGE 12 1942 Tonsillectomy TRURL ELECTROSURG RESCJ PROSTATE BLEED COMPLETE 2005 TURP VASECTOMY UNI/BI SPX W/POSTOP SEMEN EXA MS 1971 Physical Exam: OBJECTIVE: Constitutional: Pt is a well developed 86 year old male who is alert, oriented, cooperative and in no apparent distress. Eyes: Following during examination. No r edness or drainage. Respiratory: RR normal and n onlabored. Even breathing. No evidence of distress. Psychology: Patient is engag ed during conversation. Normal affect and mood. Does not appear depressed or anxious. NVSI unchanged from previous visit. Dermatological: Nails 2-5 left and 1-3 right are normal. Callus is present to right 5 th metatarsal, right 1st metataral and left 2nd toe. No ulceration is noted. Musculoskeletal/Orthopaedic: Patient has no pain to palpation of b/l feet Patient has rigid hammertoe of left 2nd toe. Patient has amputation of right 4th and right 5th toe Arthritic changes are noted to right 1st mtpj. ASSESSMENT: (L85.9) Hyperkeratosis (primary encounte r diagnosis) (I73.9) PAD (peripheral artery disease) (HCC) (M20.41, M20.42) Hammer toes of both fee t PLAN: Patient ulcerations remain healed Callus present to right 5th Metatarsal, right 1st metatarsal and left 2nd toe reduced with drmmel. In order to perform a complete physical exam, limited shaving of callus area was performed. This incide ntal service is integral to the evaluation and management visit in order to appropriately manage and treat the patient (for their complaint or for this visit). Continue with wider shoes and hammertoe padding to prevent ulceration. Discussed hammertoe of left foot. Contin ue with hammertoe pad F/u in 6 weeks or sooner if problems gloria se. AMB ROOMING INTAKE FLOWSHEET DATA Risk Screening Do you have concerns about personal safe ty or safety in the home?: No Patient presents with: Right Foot - Established Patient, Hammer Toe Left Foot - Established Patient, Hammer Toe documented in this encounter 03-31-2022 Note HNO ID: [id number] [facility] Author: Kaylah Delgado RN [place] Service: ? Author Type: ? Type: Progress Notes Filed: 03/31/2022 11:03 PM Note Text: AMB ROOMING INTAKE FLOWSHEET DATA Risk Screening Do you have concerns about personal safe ty or safety in the home?: No Patient presents with: Right Foot - Established Patient, Hammer Toe Left Foot - Established Patient, Hammer Toe 03-27-2022 Miscellaneous Formatting of this note is d ifferent from the original. [facility] Notes Daughter called and states p t will be out of Aricept today. Short term being requested with medications below. Patient has been identified by name and date of : Yes daughter phones for refill(s): Pending Prescriptions Disp Refills DONEPEZIL 10 MG TABLET 90 tablet 3 Sig: Take 1 tablet by mouth every evenin g. TABITHA: No DONEPEZIL 10 MG TABLET 30 tablet 0 Sig: Take 1 tablet by mouth daily at bed time. PRAVASTATIN 40 MG TABLET 90 tablet 3 Sig: Take 1 tablet by mouth every mornin g. TABITHA: No FINASTERIDE 5 MG TABLET 90 tablet 3 Sig: Take 1 tablet by mouth once daily. TABITHA: No ALLOPURINOL 300 MG TABLET 90 tablet 3 Sig: Take 1 tablet by mouth once daily. TABITHA: No Date of last office visit in primary car e: 01/16/22 next apt 08/07/22 Last 2 Encounter Wt Readings: Date: Wt: 08/07/2021 75.3 kg (166 lb) 01/13/2021 76.7 kg (169 lb) Previous labs/tests for medication: Cholesterol: HDL Cholesterol (mg/dL) Date Value 07/31/2021 56 LDL Cholesterol (mg/dL) Date Value 07/31/2021 94 ALT (U/L) Date Value 07/31/2021 16 Non HDL Cholesterol (mg/dL) Date Value 07/31/2021 112 Please advise. Thank you. Madeleine Sheppard LPN documented in this encounter 02-18-2022 Note HNO ID: [id number] [facility] Author: Aracelis Aceves [place] Service: ? Author Type: Physician Type: Progress Notes Filed: 02/18/2022 12:24 PM Note Text: Follow up podiatric office visit for: Chief Complaint: This 86 year old who pr esents for follow up:callus of right foot. Patient presents to clinic for follow-up callus of right foot. Patient denies any pain. Patient continues with wider shoes. He has no other complaints. PAIN EVALUATION No data found in the last 1 encounters. Hemoglobin A1C Date Value Ref Range Status 08/12/2017 5.8 (H) 4.3 - 5.6 % Final Comment: [place] [employer] guidelines indicate that patients with HgbA1c in the range 5.7-6.4% are at increased risk for development of diabetes, and intervention by lifestyle modification m ay be beneficial. HgbA1c greater or equal to 6.5% is considered diagnostic o f diabetes. 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 ([facility]) 04/04/2021 - Esophageal reflux - Hemorrhage of rectum and anus - History of prediabetes 08/05/2016 - Hyperlipidemia - Hypertrophy of prostate with urinary o bstruction and other lower urinary tract symptoms (LUTS) 03/19/2006 - HYPERURICEMIA 09/29/2006 - Idiopathic peripheral neuropathy 010 - Internal hemorrhoids without mention o f complication - Interstitial lung disease ([facility]) 017 - Mixed hyperlipidemia Hyperlipidemia - 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 07/08/2010 - OM (osteomyelitis) ([facility]) 04/03/2010 - Osteomyelitis of fifth toe of right fo ot ([facility]) 01/23/2020 - PAC (premature atrial contraction) - 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 - Presence of cardiac pacemaker 09/22/20 19 BOLD Guidance dual-chamber pacemaker system; indication: symptomatic bradycardia due to sinus node dysfunctio n; system will be MRI conditional after 6 weeks post implant - Psoriasis and similar disorders arthritis - PSORIATIC ARTHRITIS 09/29/2006 - PVC (premature ventricular contraction ) - Sinus node dysfunction ([facility]) 09/22/2019 - Unspecified essential hypertension Essential hypertension - Unspecified hypothyroidism - Urethral stricture 04/04/2012 - Urinary retention 03/16/2013 - Vasculitis ([facility]) 04/01/2017 Current Outpatient Medications Medication Sig - clopidogrel (PLAVIX) 75 mg tablet Take 1 tablet by mouth once daily. - memantine (NAMENDA) 10 mg tablet Take 1 tablet by mouth once daily. - levothyroxine (SYNTHROID) 175 mcg tabl et Take 1 tablet by mouth once daily. For Thyroid. - lisinopril (ZESTRIL, PRINIVIL) 10 mg t ablet Take 1 tablet by mouth once daily. - gabapentin (NEURONTIN) 300 mg capsule Take 1 capsule by mouth every evening. - tamsulosin (FLOMAX) 0.4 mg Take 1 caps ule by mouth every evening. - pravastatin (PRAVACHOL) 40 mg tablet T albertina 1 tablet by mouth every morning. - finasteride (PROSCAR) 5 mg tablet Take 1 tablet by mouth once daily. - allopurinol (ZYLOPRIM) 300 mg tablet T albertina 1 tablet by mouth once daily. - donepezil (ARICEPT) 10 mg tablet Take 1 tablet by mouth every evening. - triamcinolone acetonide (KENALOG) 0.1 % ointment Apply to affected area once daily. - leflunomide (ARAVA) 10 mg tablet Take 10 mg by mouth once daily. - nitroglycerin sublingual (NITROQUICK) 0.4 mg SL tablet Dissolve 1 tablet under the tongue as needed. FOR CHEST PA IN. IF NO RELIEF CALL 911 - ofloxacin (OCUFLOX) 0.3 % ophthalmic s olution Use 1 Drop in both eyes. Use 1 drop in both eyes one day prior to eye injection. - [place]-3 Fatty Acids (FISH OIL) 500 mg cap Take 1 capsule by mouth once daily. - beta-carotene(a) w-c AND e/zn/cu(OCUVI TE PRESERVISION TAB) Take one(1) tablet daily. - CLARITIN 10 MG ORAL TAB Take one(1) ta blet daily. - ASPIRIN 81MG TABLET Take one (1) table t daily . - MULTIVITAMIN TABLET Take one(1) tablet daily. No current facility-administered medicat ions for this visit. ALLERGIES Allergen Reactions - Bactrim [Sulfametho* Rash, Hives, Othe r: See Comments Elevated bilirubin - Cats - Gold Shots [Other] - Hyoscyamine Unknown - Metronidazole Unknown - Sesame Seed - Sulfa (Sulfonamide * Rash, Hives - Tree Nut Other: See Comments - Tree Nuts [Other] ANY NUT THAT GROWS ON TREES - Trimethoprim Rash, Hives PAST SURGICAL HISTORY Procedure Laterality Date - AMPUTATE TOE; IP JOINT 2009 Rt foot 4th toe - AMPUTATION METATARSAL+TOE,SINGLE Right 01/23/2020 R 5th toe. (more content not included)... 02-18-2022 History of Present [facility] illness Narrative Follow up podiatric office visit for: Chief Complaint: This 86 yea r old who presents for follow up:callus of right foot. Patient presents to clinic f or follow-up callus of right foot. Patient denies any pain. Patient continues with wider shoes. He has no other complaints. PAIN EVALUATION No data found in the last 1 encounters. Hemoglobin A1C Date Value Ref Range Status 08/12/2017 5.8 (H) 4.3 - 5.6 % Final Comment: [place] [employer] guidelines indicate that patients with HgbA1c in the range 5.7-6.4% are at increased risk for development of diabetes, and intervention by lifestyle modification m ay be beneficial. HgbA1c greater or equal to 6.5% is considered diagnostic o f diabetes. 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 ([facility]) 04/04/2021 Esophageal reflux Hemorrhage of rectum and anus History of prediabetes 08/05/2016 Hyperlipidemia Hypertrophy of prostate wit h urinary obstruction and other lower urinary tract symptoms (LUTS) 03/19/2006 HYPERURICEMIA 09/29/2006 Idiopathic peripheral neuropathy 03/28/20 10 Internal hemorrhoids without mention of complication Interstitial lung disease ([facility]) 05/18/20 17 Mixed hyperlipidemia Hyperlipidemia Occlusion and stenosis of c arotid artery without mention of cerebral infarction 07/08/2010 OM (osteomyelitis) ([facility]) 04/03/2010 Osteomyelitis of fifth toe of right anthony t ([facility]) 01/23/2020 PAC (premature atrial contraction) 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 cardiac pacemaker 9 BOLD Guidance dual-chamb er pacemaker system; indication: symptomatic bradycardia due to sinus node dysfunction; system will be MRI conditional after 6 weeks post implant Psoriasis and similar disorders arthritis PSORIATIC ARTHRITIS 09/29/2006 PVC (premature ventricular contraction) Sinus node dysfunction ([facility]) 09/22/2019 Unspecified essential hypertension Essential hypertension Unspecified hypothyroidism Urethral stricture 04/04/2012 Urinary retention 03/16/2013 Vasculitis (HCC) 04/01/2017 Current Outpatient Medications Medication Sig clopidogrel (PLAVIX) 75 mg tablet Take 1 tablet by mouth once daily. memantine (NAMENDA) 10 mg tablet Take 1 tablet by mouth once daily. levothyroxine (SYNTHROID) 1 75 mcg tablet Take 1 tablet by mouth once daily. For Thyroid. lisinopril (ZESTRIL, PRINIV [place]) 10 mg tablet Take 1 tablet by mouth once daily. gabapentin (NEURONTIN) 300 mg capsule Take 1 capsule by mouth every evening. tamsulosin (FLOMAX) 0.4 mg Take 1 capsu le by mouth every evening. pravastatin (PRAVACHOL) 40 mg tablet Ta ke 1 tablet by mouth every morning. finasteride (PROSCAR) 5 mg tablet Take 1 tablet by mouth once daily. allopurinol (ZYLOPRIM) 300 mg tablet Ta ke 1 tablet by mouth once daily. donepezil (ARICEPT) 10 mg tablet Take 1 tablet by mouth every evening. triamcinolone acetonide (KE NALOG) 0.1 % ointment Apply to affected area once daily. leflunomide (ARAVA) 10 mg tablet Take 1 0 mg by mouth once daily. nitroglycerin sublingual (N ITROQUICK) 0.4 mg SL tablet Dissolve 1 tablet under the tongue as needed. FOR CHEST PAIN. IF NO RELIEF CALL 911 ofloxacin (OCUFLOX) 0.3 % o phthalmic solution Use 1 Drop in both eyes. Use 1 drop in both eyes one day prior to eye injection. [place]-3 Fatty Acids (FISH OIL) 500 mg c ap Take 1 capsule by mouth once daily. beta-carotene(a) w-c & e/zn /cu(OCUVITE PRESERVISION TAB) Take one(1) tablet daily. CLARITIN 10 MG ORAL TAB Take one(1) tab let daily. ASPIRIN 81MG TABLET Take one (1) tablet daily . MULTIVITAMIN TABLET Take one(1) tablet daily. No current facility-administered medicat ions for this visit. ALLERGIES Allergen Reactions Bactrim [Sulfametho* Rash, Hives, Other : See Comments Elevated bilirubin Cats Gold Shots [Other] Hyoscyamine Unknown Metronidazole Unknown Sesame Seed Sulfa (Sulfonamide * Rash, Hives Tree Nut Other: See Comments Tree Nuts [Other] ANY NUT THAT GROWS ON TREES Trimethoprim Rash, Hives PAST SURGICAL HISTORY Procedure Laterality Date AMPUTATE TOE; IP JOINT 2010 Rt foot 4th toe AMPUTATION METATARSAL+TOE,SINGLE Right 01/23/2020 R 5th toe. 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 Gentile [facility] BUNIONECTOMY, [place]-TYPE Right 2009 Right foot CARDIAC CATH 01/28/2011 normal LV systolic fxn; norm al LM, occluded LAD; LCX 50% ostial, mid 80%; left PDA 50% prox; RCA small nondominant with 70% ostial stenosis; SVG-PDA occluded; VIZCARRA Y graft to LAD and diagonal branch patent; [facility] [place] Right 05/04/2014 RIGHT CAROTID CATARACT EXTRACTION HX Bilateral 2015 COLONOSCOPY FLX DX W/COLLJ SPEC WHEN PF RMD 08/10/2014 CORONARY ARTERY BYPASS GRAFT 06/06/1997 CABG 2 vessel: VIZCARRA Y graft to LAD and diagonal branch; [facility], Dr. Valenzuela ECHOCARDIOGRAM 02/18/2018 normal LV systolic fxn; LVEF 60%; mild pHTN; no significant valvular abnormalities HEMORRHOIDECTOMY 1962 HOLTER 24 HR 07/14/2019 sinus rhythm, sinus bradycardia; min HR 33 bpm; max HR 98 bpm; avg HR 49 bpm INSERT INTRACORONARY STENT 2010 PCI/stent to LCX LASER GREENLIGHT PVP 2013 Prostate PACEMAKER IMPLANT 09/22/2019 PAST SURGICAL HISTORY OF Right 2004 RIGHT LEG FRACTURE WITH RODS PHARMACOLOGIC NUCLEAR STRESS 02/18/2018 no ischemia or scar SIGMOIDOSCOPY FLX DX W/COLLJ SPEC BR/WA IF PFRMD 06/19/08 TONSILLECTOMY PRIMARY/SECONDARY <AGE 12 1942 Tonsillectomy TRURL ELECTROSURG RESCJ PROSTATE BLEED COMPLETE 2005 TURP VASECTOMY UNI/BI SPX W/POSTOP SEMEN EXA MS 1971 Physical Exam: Constitutional: Pt is a well developed 86 year old male who is alert, oriented, cooperative and in no apparent distress. OBJECTIVE: NVSI unchanged from previous visit. Dermatological: Callus present to right 5th metatarsal, right 1st metatarasl and tip of left 2nd toe. No ulceration or signs of infection. 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 Continue with lotion and wider shoes. Continue with hammertoe crest pad to left 2nd toe to help prevent ulceration F/u in 6 weeks or sooner if problems gloria se. Aracelis Aceves DPM Patient presents with: Right Foot - Established Patient, hammer toes documented in this encounter 02-17-2022 Note HNO ID: [id number] [facility] Author: Aleida Moser MA [place] Service: ? 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 [facility] Notes rec'd fax from [employer] requested MR. Brown has been sent to [facility] MR dept documented in this encounter 02-25-2022 Note HNO ID: [id number] [facility] Author: Jason Snider MD [place] Service: ? Author Type: Physician Type: Progress Notes Filed: 01/18/2022 2:21 PM Note Text: This note was created using Takt[employer]. Subjective Navid Cortes is a 86 year old male her e with his daughter. He slipped on ice recently with no major injury. 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 Daughter reported he still passed his vision exam for driving and patient still felt safe driving to familiar places. Home health aid hours have increased, and he had some home care 6 days per week. This improved medication adherence and nutritional quality. He still went for m eals at a [employer] restaurant when home health was not available, as he for gets to eat or preferred not to make meals on his own. She has forwarded calls to her voicemail box so a lot of telemarketing and scam calls are avoided. Home care providers have reported alternating diarrhea and consti pation, but patient is independent with hygiene and there was no evidence o f incontinence. Review of Systems Constitutional: Negative. Respiratory: Negative. Cardiovascular: Negative. Gastrointestinal: Negative for abdominal pain, nausea and vomiting. See HPI. Patient was not concerned. Genitourinary: Negative. Musculoskeletal: Negative. Psychiatric/Behavioral: Negative. 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 For Thyroid. - lisinopril (ZESTRIL, PRINIVIL) 10 mg t ablet Take 1 tablet by mouth once daily. - gabapentin (NEURONTIN) 300 mg capsule Take 1 capsule by mouth every evening. - tamsulosin (FLOMAX) 0.4 mg Take 1 caps ule by mouth every evening. - pravastatin (PRAVACHOL) 40 mg tablet T albertina 1 tablet by mouth every morning. - finasteride (PROSCAR) 5 mg tablet Take 1 tablet by mouth once daily. - allopurinol (ZYLOPRIM) 300 mg tablet T albertina 1 tablet by mouth once daily. - donepezil (ARICEPT) 10 mg tablet Take 1 tablet by mouth every evening. - triamcinolone acetonide (KENALOG) 0.1 % ointment Apply to affected area once daily. - clopidogrel (PLAVIX) 75 mg tablet Take 1 tablet by mouth once daily. - leflunomide (ARAVA) 10 mg tablet Take 10 mg by mouth once daily. - nitroglycerin sublingual (NITROQUICK) 0.4 mg SL tablet Dissolve 1 tablet under the tongue as needed. FOR CHEST PA IN. IF NO RELIEF CALL 911 - ofloxacin (OCUFLOX) 0.3 % ophthalmic s olution Use 1 Drop in both eyes. Use 1 drop in both eyes one day prior to eye injection. - [place]-3 Fatty Acids (FISH OIL) 500 mg cap Take 1 capsule by mouth once daily. - Polyethylene Glycol 3350 (MIRALAX) 17 gram/dose powder Take 17 g by mouth once daily as needed. - beta-carotene(a) w-c AND e/zn/cu(OCUVI TE PRESERVISION TAB) Take one(1) tablet daily. - CLARITIN 10 MG ORAL TAB Take one(1) ta blet daily. - ASPIRIN 81MG TABLET Take one (1) table t daily . - MULTIVITAMIN TABLET Take one(1) tablet daily. No current facility-administered medicat ions for this visit. Objective BP (P) 164/86 (BP Site: Left Arm, BP Pos ition: Sitting, BP Cuff Size: Large Adult) Pulse (P) 72 Temp (P) 3 6.3 ?C (97.3 ?F) (Temporal) Resp (P) 16 Wt (P) 78.5 kg (173 lb) BMI (P) 24.82 kg/m? Physical Exam Constitutional: Appearance: He is not ill-appearing. Comments: Grooming normal. Cardiovascular: Rate and Rhythm: Normal rate and regular rhythm. Pulmonary: Effort: Pulmonary effort is normal. Breath sounds: Normal breath sounds. Abdominal: General: Bowel sounds are normal. There is no distension. Palpations: Abdomen is soft. There is no mass. Tenderness: There is no abdominal tender ness. Musculoskeletal: Right lower leg: No edema. Left lower leg: No edema. Neurological: General: No focal deficit present. Mental Status: He is alert. Psychiatric: Attention and Perception: Attention norm al. Mood and Affect: Affect is flat. Speech: Speech normal. BP 140/66 (BP Site: Right Arm, BP Positi on: Sitting) Component Latest Ref Rng AND Units 2021 WBC 3.70 - 11.00 k/uL 5.82 RBC 4.20 - 6.00 m/uL 4.10 (L) Hemoglobin 13.0 - 17.0 g/dL 12.6 (L) Hematocrit 39.0 - 51.0 % 38.9 (L) MCV 80.0 - 100.0 fL 94.9 MCH 26.0 - 34.0 pG 30.7 MCHC 30.5 - 3 (more content not included )... 02-03-2020 History of Past illness Narra tive Problem Noted Date Resolved Date Subacute osteomyelitis of right foot 02/03/2020 Sinus node dysfunction 09/22/2019 06/22/2020 Chronic obstructive pulmonary disease (COPD) 03/03/2019 06/19/2020 Fatigue 06/03/2017 06/22/2020 Abnormal ANCA test 05/07/2017 06/22/2020 Abnormal finding on imaging 05/07/2017 08/17/2017 Vasculitis 04/01/2017 01/17/2020 Dizziness and giddiness 03/17/2017 01/17/2020 History of prediabetes 08/05/2016 01/17/2020 Senile cataract 07/16/2015 01/17/2020 Overview: 06/22/15 Cataracts and dry macular degener ation. Dr Sean Schneider O.D. scanned. Screening for intestinal cancer 07/16/2014 08/05/20 16 Anal stenosis 04/05/2013 01/17/2020 Urinary retention 03/16/2013 08/05/2016 BPH (benign prostatic hyperplasia) 03/16/201308/05 Urethral stricture 04/04/2012 08/05/2016 Impotence 04/04/2012 06/22/2020 Occlusion and stenosis of carotid artery without mention of 07/08/2010 08/05/2016 cerebral infarction Capillary angioma 06/01/2010 03/17/2016 Actinic Keratosis (Premalignant AK) 06/01/201012/24 Closed fracture of metatarsal bone(s) 05/14/2010 Abnormality of gait 05/14/2010 08/05/2016 OM (osteomyelitis) 04/03/2010 08/05/2016 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out mentio n 03/28/2010 06/10/2010 of complication, not stated as uncontrolled 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 03/28/2010 06/10/2010 manifestations, not stated as uncontrolled(250.60) Benign neoplasm of skin of lower limb, including hip 008 08/05/2016 Dyshidrosis 11/07/2007 08/05/2016 Other atopic dermatitis and related conditions 07/05/2007 08/12/2015 Unspecified pruritic disorder 07/05/2007 03/17/2016 ECZEMATOUS DERMATITIS NOS 07/05/2007 08/05/2016 Other psoriasis 07/05/2007 06/19/2020 XEROSIS///SEBACEOUS GLAND DIS NEC 07/05/20072014 SOLAR LENTIGINES///DYSCHROMIA OTHER 07/05/200707/24 Other seborrheic keratosis 07/05/2007 03/18/2015 ACTINIC DAMAGE///CHR SOLAR SKIN DAMAGE NOS 07/05/2007 08/12/2015 Other hammer toe (acquired) 06/22/2007 08/17/2017 Hallux valgus (acquired) 06/22/2007 03/17/2016 PSORIATIC ARTHRITIS 09/29/2006 08/17/2017 HYPERLIPIDEMIA 07/21/2006 03/17/2016 Atherosclerosis of coronary artery bypass graft 07/21/2006 06/22/2020 ANEMIA NORMOCYTIC 07/21/2006 06/22/2020 ABNORMAL GLUCOSE 07/21/2006 08/12/2015 Retention of urine, unspecified 03/19/2006 08/05/20 16 Bladder neck obstruction 03/19/2006 08/05/2016 Hydronephrosis 03/19/2006 05/24/2006 Hemorrhage of rectum and anus 08/05/2016 documented as of this encounter (statuses as of 02/17/2022)[facility] 02-03-2020 History of Past illness Narrative Problem Noted Date Resolved Date Subacute osteomyelitis of right foot 02/03/2020 Sinus node dysfunction 09/22/2019 06/22/2020 Chronic obstructive pulmonary disease (COPD) 03/03/2019 06/19/2020 Fatigue 06/03/2017 06/22/2020 Abnormal ANCA test 05/07/2017 06/22/2020 Abnormal finding on imaging 05/07/2017 08/17/2017 Vasculitis 04/01/2017 01/17/2020 Dizziness and giddiness 03/17/2017 01/17/2020 History of prediabetes 08/05/2016 01/17/2020 Senile cataract 07/16/2015 01/17/2020 Overview: 06/22/15 Cataracts and dry macular degener ation. Dr Sean Schneider O.D. scanned. Screening for intestinal cancer 07/16/2014 08/05/20 16 Anal stenosis 04/05/2013 01/17/2020 Urinary retention 03/16/2013 08/05/2016 BPH (benign prostatic hyperplasia) 03/16/201308/05 Urethral stricture 04/04/2012 08/05/2016 Impotence 04/04/2012 06/22/2020 Occlusion and stenosis of carotid artery without mention of 07/08/2010 08/05/2016 cerebral infarction Capillary angioma 06/01/2010 03/17/2016 Actinic Keratosis (Premalignant AK) 06/01/201012/24 Closed fracture of metatarsal bone(s) 05/14/2010 Abnormality of gait 05/14/2010 08/05/2016 OM (osteomyelitis) 04/03/2010 08/05/2016 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out mentio n 03/28/2010 06/10/2010 of complication, not stated as uncontrolled 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 03/28/2010 06/10/2010 manifestations, not stated as uncontrolled(250.60) Benign neoplasm of skin of lower limb, including hip 008 08/05/2016 Dyshidrosis 11/07/2007 08/05/2016 Other atopic dermatitis and related conditions 07/05/2007 08/12/2015 Unspecified pruritic disorder 07/05/2007 03/17/2016 ECZEMATOUS DERMATITIS NOS 07/05/2007 08/05/2016 Other psoriasis 07/05/2007 06/19/2020 XEROSIS///SEBACEOUS GLAND DIS NEC 07/05/20072014 SOLAR LENTIGINES///DYSCHROMIA OTHER 07/05/200707/24 Other seborrheic keratosis 07/05/2007 03/18/2015 ACTINIC DAMAGE///CHR SOLAR SKIN DAMAGE NOS 07/05/2007 08/12/2015 Other hammer toe (acquired) 06/22/2007 08/17/2017 Hallux valgus (acquired) 06/22/2007 03/17/2016 PSORIATIC ARTHRITIS 09/29/2006 08/17/2017 HYPERLIPIDEMIA 07/21/2006 03/17/2016 Atherosclerosis of coronary artery bypass graft 07/21/2006 06/22/2020 ANEMIA NORMOCYTIC 07/21/2006 06/22/2020 ABNORMAL GLUCOSE 07/21/2006 08/12/2015 Retention of urine, unspecified 03/19/2006 08/05/20 16 Bladder neck obstruction 03/19/2006 08/05/2016 Hydronephrosis 03/19/2006 05/24/2006 Hemorrhage of rectum and anus 08/05/2016 documented as of this encounter (statuses as of 02/18/2022)[facility] 02-03-2020 History of Past illness Narrative Problem Noted Date Resolved Date Subacute osteomyelitis of right foot 02/03/2020 Sinus node dysfunction 09/22/2019 06/22/2020 Chronic obstructive pulmonary disease (COPD) 03/03/2019 06/19/2020 Fatigue 06/03/2017 06/22/2020 Abnormal ANCA test 05/07/2017 06/22/2020 Abnormal finding on imaging 05/07/2017 08/17/2017 Vasculitis 04/01/2017 01/17/2020 Dizziness and giddiness 03/17/2017 01/17/2020 History of prediabetes 08/05/2016 01/17/2020 Senile cataract 07/16/2015 01/17/2020 Overview: 06/22/15 Cataracts and dry macular degener ation. Dr Sean Schneider O.D. scanned. Screening for intestinal cancer 07/16/2014 08/05/20 16 Anal stenosis 04/05/2013 01/17/2020 Urinary retention 03/16/2013 08/05/2016 BPH (benign prostatic hyperplasia) 03/16/201308/05 Urethral stricture 04/04/2012 08/05/2016 Impotence 04/04/2012 06/22/2020 Occlusion and stenosis of carotid artery without mention of 07/08/2010 08/05/2016 cerebral infarction Capillary angioma 06/01/2010 03/17/2016 Actinic Keratosis (Premalignant AK) 06/01/201012/24 Closed fracture of metatarsal bone(s) 05/14/2010 Abnormality of gait 05/14/2010 08/05/2016 OM (osteomyelitis) 04/03/2010 08/05/2016 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out mentio n 03/28/2010 06/10/2010 of complication, not stated as uncontrolled 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 03/28/2010 06/10/2010 manifestations, not stated as uncontrolled(250.60) Benign neoplasm of skin of lower limb, including hip 008 08/05/2016 Dyshidrosis 11/07/2007 08/05/2016 Other atopic dermatitis and related conditions 07/05/2007 08/12/2015 Unspecified pruritic disorder 07/05/2007 03/17/2016 ECZEMATOUS DERMATITIS NOS 07/05/2007 08/05/2016 Other psoriasis 07/05/2007 06/19/2020 XEROSIS///SEBACEOUS GLAND DIS NEC 07/05/20072014 SOLAR LENTIGINES///DYSCHROMIA OTHER 07/05/200707/24 Other seborrheic keratosis 07/05/2007 03/18/2015 ACTINIC DAMAGE///CHR SOLAR SKIN DAMAGE NOS 07/05/2007 08/12/2015 Other hammer toe (acquired) 06/22/2007 08/17/2017 Hallux valgus (acquired) 06/22/2007 03/17/2016 PSORIATIC ARTHRITIS 09/29/2006 08/17/2017 HYPERLIPIDEMIA 07/21/2006 03/17/2016 Atherosclerosis of coronary artery bypass graft 07/21/2006 06/22/2020 ANEMIA NORMOCYTIC 07/21/2006 06/22/2020 ABNORMAL GLUCOSE 07/21/2006 08/12/2015 Retention of urine, unspecified 03/19/2006 08/05/20 16 Bladder neck obstruction 03/19/2006 08/05/2016 Hydronephrosis 03/19/2006 05/24/2006 Hemorrhage of rectum and anus 08/05/2016 documented as of this encounter (statuses as of 03/27/2022)[facility] 02-03-2020 History of Past illness Narrative Problem Noted Date Resolved Date Subacute osteomyelitis of right foot 02/03/2020 Sinus node dysfunction 09/22/2019 06/22/2020 Chronic obstructive pulmonary disease (COPD) 03/03/2019 06/19/2020 Fatigue 06/03/2017 06/22/2020 Abnormal ANCA test 05/07/2017 06/22/2020 Abnormal finding on imaging 05/07/2017 08/17/2017 Vasculitis 04/01/2017 01/17/2020 Dizziness and giddiness 03/17/2017 01/17/2020 History of prediabetes 08/05/2016 01/17/2020 Senile cataract 07/16/2015 01/17/2020 Overview: 06/22/15 Cataracts and dry macular degener ation. Dr Sean Schneider O.D. scanned. Screening for intestinal cancer 07/16/2014 08/05/20 16 Anal stenosis 04/05/2013 01/17/2020 Urinary retention 03/16/2013 08/05/2016 BPH (benign prostatic hyperplasia) 03/16/201308/05 Urethral stricture 04/04/2012 08/05/2016 Impotence 04/04/2012 06/22/2020 Occlusion and stenosis of carotid artery without mention of 07/08/2010 08/05/2016 cerebral infarction Capillary angioma 06/01/2010 03/17/2016 Actinic Keratosis (Premalignant AK) 06/01/201012/24 Closed fracture of metatarsal bone(s) 05/14/2010 Abnormality of gait 05/14/2010 08/05/2016 OM (osteomyelitis) 04/03/2010 08/05/2016 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out mentio n 03/28/2010 06/10/2010 of complication, not stated as uncontrolled 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 03/28/2010 06/10/2010 manifestations, not stated as uncontrolled(250.60) Benign neoplasm of skin of lower limb, including hip 008 08/05/2016 Dyshidrosis 11/07/2007 08/05/2016 Other atopic dermatitis and related conditions 07/05/2007 08/12/2015 Unspecified pruritic disorder 07/05/2007 03/17/2016 ECZEMATOUS DERMATITIS NOS 07/05/2007 08/05/2016 Other psoriasis 07/05/2007 06/19/2020 XEROSIS///SEBACEOUS GLAND DIS NEC 07/05/20072014 SOLAR LENTIGINES///DYSCHROMIA OTHER 07/05/200707/24 Other seborrheic keratosis 07/05/2007 03/18/2015 ACTINIC DAMAGE///CHR SOLAR SKIN DAMAGE NOS 07/05/2007 08/12/2015 Other hammer toe (acquired) 06/22/2007 08/17/2017 Hallux valgus (acquired) 06/22/2007 03/17/2016 PSORIATIC ARTHRITIS 09/29/2006 08/17/2017 HYPERLIPIDEMIA 07/21/2006 03/17/2016 Atherosclerosis of coronary artery bypass graft 07/21/2006 06/22/2020 ANEMIA NORMOCYTIC 07/21/2006 06/22/2020 ABNORMAL GLUCOSE 07/21/2006 08/12/2015 Retention of urine, unspecified 03/19/2006 08/05/20 16 Bladder neck obstruction 03/19/2006 08/05/2016 Hydronephrosis 03/19/2006 05/24/2006 Hemorrhage of rectum and anus 08/05/2016 documented as of this encounter (statuses as of 04/01/2022)[facility] 02-03-2020 History of Past illness Narrative Problem Noted Date Resolved Date Subacute osteomyelitis of right foot 02/03/2020 Sinus node dysfunction 09/22/2019 06/22/2020 Chronic obstructive pulmonary disease (COPD) 03/03/2019 06/19/2020 Fatigue 06/03/2017 06/22/2020 Abnormal ANCA test 05/07/2017 06/22/2020 Abnormal finding on imaging 05/07/2017 08/17/2017 Vasculitis 04/01/2017 01/17/2020 Dizziness and giddiness 03/17/2017 01/17/2020 History of prediabetes 08/05/2016 01/17/2020 Senile cataract 07/16/2015 01/17/2020 Overview: 06/22/15 Cataracts and dry macular degener ation. Dr Sean Schneider O.D. scanned. Screening for intestinal cancer 07/16/2014 08/05/20 16 Anal stenosis 04/05/2013 01/17/2020 Urinary retention 03/16/2013 08/05/2016 BPH (benign prostatic hyperplasia) 03/16/201308/05 Urethral stricture 04/04/2012 08/05/2016 Impotence 04/04/2012 06/22/2020 Occlusion and stenosis of carotid artery without mention of 07/08/2010 08/05/2016 cerebral infarction Capillary angioma 06/01/2010 03/17/2016 Actinic Keratosis (Premalignant AK) 06/01/201012/24 Closed fracture of metatarsal bone(s) 05/14/2010 Abnormality of gait 05/14/2010 08/05/2016 OM (osteomyelitis) 04/03/2010 08/05/2016 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out mentio n 03/28/2010 06/10/2010 of complication, not stated as uncontrolled 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 03/28/2010 06/10/2010 manifestations, not stated as uncontrolled(250.60) Benign neoplasm of skin of lower limb, including hip 008 08/05/2016 Dyshidrosis 11/07/2007 08/05/2016 Other atopic dermatitis and related conditions 07/05/2007 08/12/2015 Unspecified pruritic disorder 07/05/2007 03/17/2016 ECZEMATOUS DERMATITIS NOS 07/05/2007 08/05/2016 Other psoriasis 07/05/2007 06/19/2020 XEROSIS///SEBACEOUS GLAND DIS NEC 07/05/20072014 SOLAR LENTIGINES///DYSCHROMIA OTHER 07/05/200707/24 Other seborrheic keratosis 07/05/2007 03/18/2015 ACTINIC DAMAGE///CHR SOLAR SKIN DAMAGE NOS 07/05/2007 08/12/2015 Other hammer toe (acquired) 06/22/2007 08/17/2017 Hallux valgus (acquired) 06/22/2007 03/17/2016 PSORIATIC ARTHRITIS 09/29/2006 08/17/2017 HYPERLIPIDEMIA 07/21/2006 03/17/2016 Atherosclerosis of coronary artery bypass graft 07/21/2006 06/22/2020 ANEMIA NORMOCYTIC 07/21/2006 06/22/2020 ABNORMAL GLUCOSE 07/21/2006 08/12/2015 Retention of urine, unspecified 03/19/2006 08/05/20 16 Bladder neck obstruction 03/19/2006 08/05/2016 Hydronephrosis 03/19/2006 05/24/2006 Hemorrhage of rectum and anus 08/05/2016 documented as of this encounter (statuses as of 04/08/2022)[facility] 02-03-2020 History of Past illness Narrative Problem Noted Date Resolved Date Subacute osteomyelitis of right foot 02/03/2020 Sinus node dysfunction 09/22/2019 06/22/2020 Chronic obstructive pulmonary disease (COPD) 03/03/2019 06/19/2020 Fatigue 06/03/2017 06/22/2020 Abnormal ANCA test 05/07/2017 06/22/2020 Abnormal finding on imaging 05/07/2017 08/17/2017 Vasculitis 04/01/2017 01/17/2020 Dizziness and giddiness 03/17/2017 01/17/2020 History of prediabetes 08/05/2016 01/17/2020 Senile cataract 07/16/2015 01/17/2020 Overview: 06/22/15 Cataracts and dry macular degener ation. Dr Sean Schneider O.D. scanned. Screening for intestinal cancer 07/16/2014 08/05/20 16 Anal stenosis 04/05/2013 01/17/2020 Urinary retention 03/16/2013 08/05/2016 BPH (benign prostatic hyperplasia) 03/16/201308/05 Urethral stricture 04/04/2012 08/05/2016 Impotence 04/04/2012 06/22/2020 Occlusion and stenosis of carotid artery without mention of 07/08/2010 08/05/2016 cerebral infarction Capillary angioma 06/01/2010 03/17/2016 Actinic Keratosis (Premalignant AK) 06/01/201012/24 Closed fracture of metatarsal bone(s) 05/14/2010 Abnormality of gait 05/14/2010 08/05/2016 OM (osteomyelitis) 04/03/2010 08/05/2016 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out mentio n 03/28/2010 06/10/2010 of complication, not stated as uncontrolled 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 03/28/2010 06/10/2010 manifestations, not stated as uncontrolled(250.60) Benign neoplasm of skin of lower limb, including hip 008 08/05/2016 Dyshidrosis 11/07/2007 08/05/2016 Other atopic dermatitis and related conditions 07/05/2007 08/12/2015 Unspecified pruritic disorder 07/05/2007 03/17/2016 ECZEMATOUS DERMATITIS NOS 07/05/2007 08/05/2016 Other psoriasis 07/05/2007 06/19/2020 XEROSIS///SEBACEOUS GLAND DIS NEC 07/05/20072014 SOLAR LENTIGINES///DYSCHROMIA OTHER 07/05/200707/24 Other seborrheic keratosis 07/05/2007 03/18/2015 ACTINIC DAMAGE///CHR SOLAR SKIN DAMAGE NOS 07/05/2007 08/12/2015 Other hammer toe (acquired) 06/22/2007 08/17/2017 Hallux valgus (acquired) 06/22/2007 03/17/2016 PSORIATIC ARTHRITIS 09/29/2006 08/17/2017 HYPERLIPIDEMIA 07/21/2006 03/17/2016 Atherosclerosis of coronary artery bypass graft 07/21/2006 06/22/2020 ANEMIA NORMOCYTIC 07/21/2006 06/22/2020 ABNORMAL GLUCOSE 07/21/2006 08/12/2015 Retention of urine, unspecified 03/19/2006 08/05/20 16 Bladder neck obstruction 03/19/2006 08/05/2016 Hydronephrosis 03/19/2006 05/24/2006 Hemorrhage of rectum and anus 08/05/2016 documented as of this encounter (statuses as of 05/15/2022)[facility] 02-03-2020 History of Past illness Narrative Problem Noted Date Resolved Date Subacute osteomyelitis of right foot 02/03/2020 Sinus node dysfunction 09/22/2019 06/22/2020 Chronic obstructive pulmonary disease (COPD) 03/03/2019 06/19/2020 Fatigue 06/03/2017 06/22/2020 Abnormal ANCA test 05/07/2017 06/22/2020 Abnormal finding on imaging 05/07/2017 08/17/2017 Vasculitis 04/01/2017 01/17/2020 Dizziness and giddiness 03/17/2017 01/17/2020 History of prediabetes 08/05/2016 01/17/2020 Senile cataract 07/16/2015 01/17/2020 Overview: 06/22/15 Cataracts and dry macular degener ation. Dr Sena Schneider O.D. scanned. Screening for intestinal cancer 07/16/2014 08/05/20 16 Anal stenosis 04/05/2013 01/17/2020 Urinary retention 03/16/2013 08/05/2016 BPH (benign prostatic hyperplasia) 03/16/201308/05 Urethral stricture 04/04/2012 08/05/2016 Impotence 04/04/2012 06/22/2020 Occlusion and stenosis of carotid artery without mention of 07/08/2010 08/05/2016 cerebral infarction Capillary angioma 06/01/2010 03/17/2016 Actinic Keratosis (Premalignant AK) 06/01/201012/24 Closed fracture of metatarsal bone(s) 05/14/2010 Abnormality of gait 05/14/2010 08/05/2016 OM (osteomyelitis) 04/03/2010 08/05/2016 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out mentio n 03/28/2010 06/10/2010 of complication, not stated as uncontrolled 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 03/28/2010 06/10/2010 manifestations, not stated as uncontrolled(250.60) Benign neoplasm of skin of lower limb, including hip 008 08/05/2016 Dyshidrosis 11/07/2007 08/05/2016 Other atopic dermatitis and related conditions 07/05/2007 08/12/2015 Unspecified pruritic disorder 07/05/2007 03/17/2016 ECZEMATOUS DERMATITIS NOS 07/05/2007 08/05/2016 Other psoriasis 07/05/2007 06/19/2020 XEROSIS///SEBACEOUS GLAND DIS NEC 07/05/20072014 SOLAR LENTIGINES///DYSCHROMIA OTHER 07/05/200707/24 Other seborrheic keratosis 07/05/2007 03/18/2015 ACTINIC DAMAGE///CHR SOLAR SKIN DAMAGE NOS 07/05/2007 08/12/2015 Other hammer toe (acquired) 06/22/2007 08/17/2017 Hallux valgus (acquired) 06/22/2007 03/17/2016 PSORIATIC ARTHRITIS 09/29/2006 08/17/2017 HYPERLIPIDEMIA 07/21/2006 03/17/2016 Atherosclerosis of coronary artery bypass graft 07/21/2006 06/22/2020 ANEMIA NORMOCYTIC 07/21/2006 06/22/2020 ABNORMAL GLUCOSE 07/21/2006 08/12/2015 Retention of urine, unspecified 03/19/2006 08/05/20 16 Bladder neck obstruction 03/19/2006 08/05/2016 Hydronephrosis 03/19/2006 05/24/2006 Hemorrhage of rectum and anus 08/05/2016 documented as of this encounter (statuses as of 05/18/2022)[facility] 02-03-2020 History of Past illness Narrative Problem Noted Date Resolved Date Subacute osteomyelitis of right foot 02/03/2020 Sinus node dysfunction 09/22/2019 06/22/2020 Chronic obstructive pulmonary disease (COPD) 03/03/2019 06/19/2020 Fatigue 06/03/2017 06/22/2020 Abnormal ANCA test 05/07/2017 06/22/2020 Abnormal finding on imaging 05/07/2017 08/17/2017 Vasculitis 04/01/2017 01/17/2020 Dizziness and giddiness 03/17/2017 01/17/2020 History of prediabetes 08/05/2016 01/17/2020 Senile cataract 07/16/2015 01/17/2020 Overview: 06/22/15 Cataracts and dry macular degener ation. Dr Sean Schneider O.D. scanned. Screening for intestinal cancer 07/16/2014 08/05/20 16 Anal stenosis 04/05/2013 01/17/2020 Urinary retention 03/16/2013 08/05/2016 BPH (benign prostatic hyperplasia) 03/16/201308/05 Urethral stricture 04/04/2012 08/05/2016 Impotence 04/04/2012 06/22/2020 Occlusion and stenosis of carotid artery without mention of 07/08/2010 08/05/2016 cerebral infarction Capillary angioma 06/01/2010 03/17/2016 Actinic Keratosis (Premalignant AK) 06/01/201012/24 Closed fracture of metatarsal bone(s) 05/14/2010 Abnormality of gait 05/14/2010 08/05/2016 OM (osteomyelitis) 04/03/2010 08/05/2016 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out mentio n 03/28/2010 06/10/2010 of complication, not stated as uncontrolled 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 03/28/2010 06/10/2010 manifestations, not stated as uncontrolled(250.60) Benign neoplasm of skin of lower limb, including hip 008 08/05/2016 Dyshidrosis 11/07/2007 08/05/2016 Other atopic dermatitis and related conditions 07/05/2007 08/12/2015 Unspecified pruritic disorder 07/05/2007 03/17/2016 ECZEMATOUS DERMATITIS NOS 07/05/2007 08/05/2016 Other psoriasis 07/05/2007 06/19/2020 XEROSIS///SEBACEOUS GLAND DIS NEC 07/05/20072014 SOLAR LENTIGINES///DYSCHROMIA OTHER 07/05/200707/24 Other seborrheic keratosis 07/05/2007 03/18/2015 ACTINIC DAMAGE///CHR SOLAR SKIN DAMAGE NOS 07/05/2007 08/12/2015 Other hammer toe (acquired) 06/22/2007 08/17/2017 Hallux valgus (acquired) 06/22/2007 03/17/2016 PSORIATIC ARTHRITIS 09/29/2006 08/17/2017 HYPERLIPIDEMIA 07/21/2006 03/17/2016 Atherosclerosis of coronary artery bypass graft 07/21/2006 06/22/2020 ANEMIA NORMOCYTIC 07/21/2006 06/22/2020 ABNORMAL GLUCOSE 07/21/2006 08/12/2015 Retention of urine, unspecified 03/19/2006 08/05/20 16 Bladder neck obstruction 03/19/2006 08/05/2016 Hydronephrosis 03/19/2006 05/24/2006 Hemorrhage of rectum and anus 08/05/2016 documented as of this encounter (statuses as of 06/04/2022)[facility] 02-03-2020 History of Past illness Narrative Problem Noted Date Resolved Date Subacute osteomyelitis of right foot 02/03/2020 Sinus node dysfunction 09/22/2019 06/22/2020 Chronic obstructive pulmonary disease (COPD) 03/03/2019 06/19/2020 Fatigue 06/03/2017 06/22/2020 Abnormal ANCA test 05/07/2017 06/22/2020 Abnormal finding on imaging 05/07/2017 08/17/2017 Vasculitis 04/01/2017 01/17/2020 Dizziness and giddiness 03/17/2017 01/17/2020 History of prediabetes 08/05/2016 01/17/2020 Senile cataract 07/16/2015 01/17/2020 Overview:Formatting of this note might b e different from the original. 06/22/15 Cataracts and dry macular degener ation. Dr Sean Schneider O.D. scanned. Screening for intestinal cancer 07/16/2014 08/05/20 16 Anal stenosis 04/05/2013 01/17/2020 Urinary retention 03/16/2013 08/05/2016 BPH (benign prostatic hyperplasia) 03/16/201308/05 Urethral stricture 04/04/2012 08/05/2016 Impotence 04/04/2012 06/22/2020 Occlusion and stenosis of carotid artery without mention of 07/08/2010 08/05/2016 cerebral infarction Capillary angioma 06/01/2010 03/17/2016 Actinic Keratosis (Premalignant AK) 06/01/201012/24 Closed fracture of metatarsal bone(s) 05/14/2010 Abnormality of gait 05/14/2010 08/05/2016 OM (osteomyelitis) 04/03/2010 08/05/2016 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out mentio n 03/28/2010 06/10/2010 of complication, not stated as uncontrolled 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 03/28/2010 06/10/2010 manifestations, not stated as uncontrolled(250.60) Benign neoplasm of skin of lower limb, including hip 008 08/05/2016 Dyshidrosis 11/07/2007 08/05/2016 Other atopic dermatitis and related conditions 07/05/2007 08/12/2015 Unspecified pruritic disorder 07/05/2007 03/17/2016 ECZEMATOUS DERMATITIS NOS 07/05/2007 08/05/2016 Other psoriasis 07/05/2007 06/19/2020 XEROSIS///SEBACEOUS GLAND DIS NEC 07/05/20072014 SOLAR LENTIGINES///DYSCHROMIA OTHER 07/05/200707/24 Other seborrheic keratosis 07/05/2007 03/18/2015 ACTINIC DAMAGE///CHR SOLAR SKIN DAMAGE NOS 07/05/2007 08/12/2015 Other hammer toe (acquired) 06/22/2007 08/17/2017 Hallux valgus (acquired) 06/22/2007 03/17/2016 PSORIATIC ARTHRITIS 09/29/2006 08/17/2017 HYPERLIPIDEMIA 07/21/2006 03/17/2016 Atherosclerosis of coronary artery bypass graft 07/21/2006 06/22/2020 ANEMIA NORMOCYTIC 07/21/2006 06/22/2020 ABNORMAL GLUCOSE 07/21/2006 08/12/2015 Retention of urine, unspecified 03/19/2006 08/05/20 16 Bladder neck obstruction 03/19/2006 08/05/2016 Hydronephrosis 03/19/2006 05/24/2006 Hemorrhage of rectum and anus 08/05/2016 documented as of this encounter (statuses as of 06/30/2022)[facility] 02-03-2020 History of Past illness Narrative Problem Noted Date Resolved Date Subacute osteomyelitis of right foot 02/03/2020 Sinus node dysfunction 09/22/2019 06/22/2020 Chronic obstructive pulmonary disease (COPD) 03/03/2019 06/19/2020 Fatigue 06/03/2017 06/22/2020 Abnormal ANCA test 05/07/2017 06/22/2020 Abnormal finding on imaging 05/07/2017 08/17/2017 Vasculitis 04/01/2017 01/17/2020 Dizziness and giddiness 03/17/2017 01/17/2020 History of prediabetes 08/05/2016 01/17/2020 Senile cataract 07/16/2015 01/17/2020 Overview:Formatting of this note might b e different from the original. 06/22/15 Cataracts and dry macular degener ation. Dr Sean Schneider O.D. scanned. Screening for intestinal cancer 07/16/2014 08/05/20 16 Anal stenosis 04/05/2013 01/17/2020 Urinary retention 03/16/2013 08/05/2016 BPH (benign prostatic hyperplasia) 03/16/201308/05 Urethral stricture 04/04/2012 08/05/2016 Impotence 04/04/2012 06/22/2020 Occlusion and stenosis of carotid artery without mention of 07/08/2010 08/05/2016 cerebral infarction Capillary angioma 06/01/2010 03/17/2016 Actinic Keratosis (Premalignant AK) 06/01/201012/24 Closed fracture of metatarsal bone(s) 05/14/2010 Abnormality of gait 05/14/2010 08/05/2016 OM (osteomyelitis) 04/03/2010 08/05/2016 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out mentio n 03/28/2010 06/10/2010 of complication, not stated as uncontrolled 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 03/28/2010 06/10/2010 manifestations, not stated as uncontrolled(250.60) Benign neoplasm of skin of lower limb, including hip 008 08/05/2016 Dyshidrosis 11/07/2007 08/05/2016 Other atopic dermatitis and related conditions 07/05/2007 08/12/2015 Unspecified pruritic disorder 07/05/2007 03/17/2016 ECZEMATOUS DERMATITIS NOS 07/05/2007 08/05/2016 Other psoriasis 07/05/2007 06/19/2020 XEROSIS///SEBACEOUS GLAND DIS NEC 07/05/20072014 SOLAR LENTIGINES///DYSCHROMIA OTHER 07/05/200707/24 Other seborrheic keratosis 07/05/2007 03/18/2015 ACTINIC DAMAGE///CHR SOLAR SKIN DAMAGE NOS 07/05/2007 08/12/2015 Other hammer toe (acquired) 06/22/2007 08/17/2017 Hallux valgus (acquired) 06/22/2007 03/17/2016 PSORIATIC ARTHRITIS 09/29/2006 08/17/2017 HYPERLIPIDEMIA 07/21/2006 03/17/2016 Atherosclerosis of coronary artery bypass graft 07/21/2006 06/22/2020 ANEMIA NORMOCYTIC 07/21/2006 06/22/2020 ABNORMAL GLUCOSE 07/21/2006 08/12/2015 Retention of urine, unspecified 03/19/2006 08/05/20 16 Bladder neck obstruction 03/19/2006 08/05/2016 Hydronephrosis 03/19/2006 05/24/2006 Hemorrhage of rectum and anus 08/05/2016 documented as of this encounter (statuses as of 07/15/2022)[facility] 02-03-2020 History of Past illness Narrative Problem Noted Date Resolved Date Subacute osteomyelitis of right foot 02/03/2020 Sinus node dysfunction 09/22/2019 06/22/2020 Chronic obstructive pulmonary disease (COPD) 03/03/2019 06/19/2020 Fatigue 06/03/2017 06/22/2020 Abnormal ANCA test 05/07/2017 06/22/2020 Abnormal finding on imaging 05/07/2017 08/17/2017 Vasculitis 04/01/2017 01/17/2020 Dizziness and giddiness 03/17/2017 01/17/2020 History of prediabetes 08/05/2016 01/17/2020 Senile cataract 07/16/2015 01/17/2020 Overview:Formatting of this note might b e different from the original. 06/22/15 Cataracts and dry macular degener ation. Dr Sean Schneider O.D. scanned. Screening for intestinal cancer 07/16/2014 08/05/20 16 Anal stenosis 04/05/2013 01/17/2020 Urinary retention 03/16/2013 08/05/2016 BPH (benign prostatic hyperplasia) 03/16/201308/05 Urethral stricture 04/04/2012 08/05/2016 Impotence 04/04/2012 06/22/2020 Occlusion and stenosis of carotid artery without mention of 07/08/2010 08/05/2016 cerebral infarction Capillary angioma 06/01/2010 03/17/2016 Actinic Keratosis (Premalignant AK) 06/01/201012/24 Closed fracture of metatarsal bone(s) 05/14/2010 Abnormality of gait 05/14/2010 08/05/2016 OM (osteomyelitis) 04/03/2010 08/05/2016 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out mentio n 03/28/2010 06/10/2010 of complication, not stated as uncontrolled 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 03/28/2010 06/10/2010 manifestations, not stated as uncontrolled(250.60) Benign neoplasm of skin of lower limb, including hip 008 08/05/2016 Dyshidrosis 11/07/2007 08/05/2016 Other atopic dermatitis and related conditions 07/05/2007 08/12/2015 Unspecified pruritic disorder 07/05/2007 03/17/2016 ECZEMATOUS DERMATITIS NOS 07/05/2007 08/05/2016 Other psoriasis 07/05/2007 06/19/2020 XEROSIS///SEBACEOUS GLAND DIS NEC 07/05/20072014 SOLAR LENTIGINES///DYSCHROMIA OTHER 07/05/200707/24 Other seborrheic keratosis 07/05/2007 03/18/2015 ACTINIC DAMAGE///CHR SOLAR SKIN DAMAGE NOS 07/05/2007 08/12/2015 Other hammer toe (acquired) 06/22/2007 08/17/2017 Hallux valgus (acquired) 06/22/2007 03/17/2016 PSORIATIC ARTHRITIS 09/29/2006 08/17/2017 HYPERLIPIDEMIA 07/21/2006 03/17/2016 Atherosclerosis of coronary artery bypass graft 07/21/2006 06/22/2020 ANEMIA NORMOCYTIC 07/21/2006 06/22/2020 ABNORMAL GLUCOSE 07/21/2006 08/12/2015 Retention of urine, unspecified 03/19/2006 08/05/20 16 Bladder neck obstruction 03/19/2006 08/05/2016 Hydronephrosis 03/19/2006 05/24/2006 Hemorrhage of rectum and anus 08/05/2016 documented as of this encounter (statuses as of 08/06/2022)[facility] 02-03-2020 History of Past illness Narrative Problem Noted Date Resolved Date Subacute osteomyelitis of right foot 02/03/2020 Sinus node dysfunction 09/22/2019 06/22/2020 Chronic obstructive pulmonary disease (COPD) 03/03/2019 06/19/2020 Fatigue 06/03/2017 06/22/2020 Abnormal ANCA test 05/07/2017 06/22/2020 Abnormal finding on imaging 05/07/2017 08/17/2017 Vasculitis 04/01/2017 01/17/2020 Dizziness and giddiness 03/17/2017 01/17/2020 History of prediabetes 08/05/2016 01/17/2020 Senile cataract 07/16/2015 01/17/2020 Overview:Formatting of this note might b e different from the original. 06/22/15 Cataracts and dry macular degener ation. Dr Sean Schneider O.D. scanned. Screening for intestinal cancer 07/16/2014 08/05/20 16 Anal stenosis 04/05/2013 01/17/2020 Urinary retention 03/16/2013 08/05/2016 BPH (benign prostatic hyperplasia) 03/16/201308/05 Urethral stricture 04/04/2012 08/05/2016 Impotence 04/04/2012 06/22/2020 Occlusion and stenosis of carotid artery without mention of 07/08/2010 08/05/2016 cerebral infarction Capillary angioma 06/01/2010 03/17/2016 Actinic Keratosis (Premalignant AK) 06/01/201012/24 Closed fracture of metatarsal bone(s) 05/14/2010 Abnormality of gait 05/14/2010 08/05/2016 OM (osteomyelitis) 04/03/2010 08/05/2016 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out mentio n 03/28/2010 06/10/2010 of complication, not stated as uncontrolled 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 03/28/2010 06/10/2010 manifestations, not stated as uncontrolled(250.60) Benign neoplasm of skin of lower limb, including hip 008 08/05/2016 Dyshidrosis 11/07/2007 08/05/2016 Other atopic dermatitis and related conditions 07/05/2007 08/12/2015 Unspecified pruritic disorder 07/05/2007 03/17/2016 ECZEMATOUS DERMATITIS NOS 07/05/2007 08/05/2016 Other psoriasis 07/05/2007 06/19/2020 XEROSIS///SEBACEOUS GLAND DIS NEC 07/05/20072014 SOLAR LENTIGINES///DYSCHROMIA OTHER 07/05/200707/24 Other seborrheic keratosis 07/05/2007 03/18/2015 ACTINIC DAMAGE///CHR SOLAR SKIN DAMAGE NOS 07/05/2007 08/12/2015 Other hammer toe (acquired) 06/22/2007 08/17/2017 Hallux valgus (acquired) 06/22/2007 03/17/2016 PSORIATIC ARTHRITIS 09/29/2006 08/17/2017 HYPERLIPIDEMIA 07/21/2006 03/17/2016 Atherosclerosis of coronary artery bypass graft 07/21/2006 06/22/2020 ANEMIA NORMOCYTIC 07/21/2006 06/22/2020 ABNORMAL GLUCOSE 07/21/2006 08/12/2015 Retention of urine, unspecified 03/19/2006 08/05/20 16 Bladder neck obstruction 03/19/2006 08/05/2016 Hydronephrosis 03/19/2006 05/24/2006 Hemorrhage of rectum and anus 08/05/2016 documented as of this encounter (statuses as of 08/16/2022)[facility] 02-03-2020 History of Past illness Narrative Problem Noted Date Resolved Date Subacute osteomyelitis of right foot 02/03/2020 Sinus node dysfunction 09/22/2019 06/22/2020 Chronic obstructive pulmonary disease (COPD) 03/03/2019 06/19/2020 Fatigue 06/03/2017 06/22/2020 Abnormal ANCA test 05/07/2017 06/22/2020 Abnormal finding on imaging 05/07/2017 08/17/2017 Vasculitis 04/01/2017 01/17/2020 Dizziness and giddiness 03/17/2017 01/17/2020 History of prediabetes 08/05/2016 01/17/2020 Senile cataract 07/16/2015 01/17/2020 Overview:Formatting of this note might b e different from the original. 06/22/15 Cataracts and dry macular degener ation. Dr Sean Schneider O.D. scanned. Screening for intestinal cancer 07/16/2014 08/05/20 16 Anal stenosis 04/05/2013 01/17/2020 Urinary retention 03/16/2013 08/05/2016 BPH (benign prostatic hyperplasia) 03/16/201308/05 Urethral stricture 04/04/2012 08/05/2016 Impotence 04/04/2012 06/22/2020 Occlusion and stenosis of carotid artery without mention of 07/08/2010 08/05/2016 cerebral infarction Capillary angioma 06/01/2010 03/17/2016 Actinic Keratosis (Premalignant AK) 06/01/201012/24 Closed fracture of metatarsal bone(s) 05/14/2010 Abnormality of gait 05/14/2010 08/05/2016 OM (osteomyelitis) 04/03/2010 08/05/2016 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out mentio n 03/28/2010 06/10/2010 of complication, not stated as uncontrolled 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 03/28/2010 06/10/2010 manifestations, not stated as uncontrolled(250.60) Benign neoplasm of skin of lower limb, including hip 008 08/05/2016 Dyshidrosis 11/07/2007 08/05/2016 Other atopic dermatitis and related conditions 07/05/2007 08/12/2015 Unspecified pruritic disorder 07/05/2007 03/17/2016 ECZEMATOUS DERMATITIS NOS 07/05/2007 08/05/2016 Other psoriasis 07/05/2007 06/19/2020 XEROSIS///SEBACEOUS GLAND DIS NEC 07/05/20072014 SOLAR LENTIGINES///DYSCHROMIA OTHER 07/05/200707/24 Other seborrheic keratosis 07/05/2007 03/18/2015 ACTINIC DAMAGE///CHR SOLAR SKIN DAMAGE NOS 07/05/2007 08/12/2015 Other hammer toe (acquired) 06/22/2007 08/17/2017 Hallux valgus (acquired) 06/22/2007 03/17/2016 PSORIATIC ARTHRITIS 09/29/2006 08/17/2017 HYPERLIPIDEMIA 07/21/2006 03/17/2016 Atherosclerosis of coronary artery bypass graft 07/21/2006 06/22/2020 ANEMIA NORMOCYTIC 07/21/2006 06/22/2020 ABNORMAL GLUCOSE 07/21/2006 08/12/2015 Retention of urine, unspecified 03/19/2006 08/05/20 16 Bladder neck obstruction 03/19/2006 08/05/2016 Hydronephrosis 03/19/2006 05/24/2006 Hemorrhage of rectum and anus 08/05/2016 documented as of this encounter (statuses as of 08/27/2022)[facility] 02-03-2020 History of Past illness Narrative Problem Noted Date Resolved Date Subacute osteomyelitis of right foot 02/03/2020 Sinus node dysfunction 09/22/2019 06/22/2020 Chronic obstructive pulmonary disease (COPD) 03/03/2019 06/19/2020 Fatigue 06/03/2017 06/22/2020 Abnormal ANCA test 05/07/2017 06/22/2020 Abnormal finding on imaging 05/07/2017 08/17/2017 Vasculitis 04/01/2017 01/17/2020 Dizziness and giddiness 03/17/2017 01/17/2020 History of prediabetes 08/05/2016 01/17/2020 Senile cataract 07/16/2015 01/17/2020 Overview:Formatting of this note might b e different from the original. 06/22/15 Cataracts and dry macular degener ation. Dr Sean Schneider O.D. scanned. Screening for intestinal cancer 07/16/2014 08/05/20 16 Anal stenosis 04/05/2013 01/17/2020 Urinary retention 03/16/2013 08/05/2016 BPH (benign prostatic hyperplasia) 03/16/201308/05 Urethral stricture 04/04/2012 08/05/2016 Impotence 04/04/2012 06/22/2020 Occlusion and stenosis of carotid artery without mention of 07/08/2010 08/05/2016 cerebral infarction Capillary angioma 06/01/2010 03/17/2016 Actinic Keratosis (Premalignant AK) 06/01/201012/24 Closed fracture of metatarsal bone(s) 05/14/2010 Abnormality of gait 05/14/2010 08/05/2016 OM (osteomyelitis) 04/03/2010 08/05/2016 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out mentio n 03/28/2010 06/10/2010 of complication, not stated as uncontrolled 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 03/28/2010 06/10/2010 manifestations, not stated as uncontrolled(250.60) Benign neoplasm of skin of lower limb, including hip 008 08/05/2016 Dyshidrosis 11/07/2007 08/05/2016 Other atopic dermatitis and related conditions 07/05/2007 08/12/2015 Unspecified pruritic disorder 07/05/2007 03/17/2016 ECZEMATOUS DERMATITIS NOS 07/05/2007 08/05/2016 Other psoriasis 07/05/2007 06/19/2020 XEROSIS///SEBACEOUS GLAND DIS NEC 07/05/20072014 SOLAR LENTIGINES///DYSCHROMIA OTHER 07/05/200707/24 Other seborrheic keratosis 07/05/2007 03/18/2015 ACTINIC DAMAGE///CHR SOLAR SKIN DAMAGE NOS 07/05/2007 08/12/2015 Other hammer toe (acquired) 06/22/2007 08/17/2017 Hallux valgus (acquired) 06/22/2007 03/17/2016 PSORIATIC ARTHRITIS 09/29/2006 08/17/2017 HYPERLIPIDEMIA 07/21/2006 03/17/2016 Atherosclerosis of coronary artery bypass graft 07/21/2006 06/22/2020 ANEMIA NORMOCYTIC 07/21/2006 06/22/2020 ABNORMAL GLUCOSE 07/21/2006 08/12/2015 Retention of urine, unspecified 03/19/2006 08/05/20 16 Bladder neck obstruction 03/19/2006 08/05/2016 Hydronephrosis 03/19/2006 05/24/2006 Hemorrhage of rectum and anus 08/05/2016 documented as of this encounter (statuses as of 08/27/2022)[facility] 02-03-2020 History of Past illness Narrative Problem Noted Date Resolved Date Subacute osteomyelitis of right foot 02/03/2020 Sinus node dysfunction 09/22/2019 06/22/2020 Chronic obstructive pulmonary disease (COPD) 03/03/2019 06/19/2020 Fatigue 06/03/2017 06/22/2020 Abnormal ANCA test 05/07/2017 06/22/2020 Abnormal finding on imaging 05/07/2017 08/17/2017 Vasculitis 04/01/2017 01/17/2020 Dizziness and giddiness 03/17/2017 01/17/2020 History of prediabetes 08/05/2016 01/17/2020 Senile cataract 07/16/2015 01/17/2020 Overview:Formatting of this note might b e different from the original. 06/22/15 Cataracts and dry macular degener ation. Dr Sean Schneider O.D. scanned. Screening for intestinal cancer 07/16/2014 08/05/20 16 Anal stenosis 04/05/2013 01/17/2020 Urinary retention 03/16/2013 08/05/2016 BPH (benign prostatic hyperplasia) 03/16/201308/05 Urethral stricture 04/04/2012 08/05/2016 Impotence 04/04/2012 06/22/2020 Occlusion and stenosis of carotid artery without mention of 07/08/2010 08/05/2016 cerebral infarction Capillary angioma 06/01/2010 03/17/2016 Actinic Keratosis (Premalignant AK) 06/01/201012/24 Closed fracture of metatarsal bone(s) 05/14/2010 Abnormality of gait 05/14/2010 08/05/2016 OM (osteomyelitis) 04/03/2010 08/05/2016 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out mentio n 03/28/2010 06/10/2010 of complication, not stated as uncontrolled 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 03/28/2010 06/10/2010 manifestations, not stated as uncontrolled(250.60) Benign neoplasm of skin of lower limb, including hip 008 08/05/2016 Dyshidrosis 11/07/2007 08/05/2016 Other atopic dermatitis and related conditions 07/05/2007 08/12/2015 Unspecified pruritic disorder 07/05/2007 03/17/2016 ECZEMATOUS DERMATITIS NOS 07/05/2007 08/05/2016 Other psoriasis 07/05/2007 06/19/2020 XEROSIS///SEBACEOUS GLAND DIS NEC 07/05/20072014 SOLAR LENTIGINES///DYSCHROMIA OTHER 07/05/200707/24 Other seborrheic keratosis 07/05/2007 03/18/2015 ACTINIC DAMAGE///CHR SOLAR SKIN DAMAGE NOS 07/05/2007 08/12/2015 Other hammer toe (acquired) 06/22/2007 08/17/2017 Hallux valgus (acquired) 06/22/2007 03/17/2016 PSORIATIC ARTHRITIS 09/29/2006 08/17/2017 HYPERLIPIDEMIA 07/21/2006 03/17/2016 Atherosclerosis of coronary artery bypass graft 07/21/2006 06/22/2020 ANEMIA NORMOCYTIC 07/21/2006 06/22/2020 ABNORMAL GLUCOSE 07/21/2006 08/12/2015 Retention of urine, unspecified 03/19/2006 08/05/20 16 Bladder neck obstruction 03/19/2006 08/05/2016 Hydronephrosis 03/19/2006 05/24/2006 Hemorrhage of rectum and anus 08/05/2016 documented as of this encounter (statuses as of 09/17/2022)[facility] 02-03-2020 History of Past illness Narrative Problem Noted Date Resolved Date Subacute osteomyelitis of right foot 02/03/2020 Sinus node dysfunction 09/22/2019 06/22/2020 Chronic obstructive pulmonary disease (COPD) 03/03/2019 06/19/2020 Fatigue 06/03/2017 06/22/2020 Abnormal ANCA test 05/07/2017 06/22/2020 Abnormal finding on imaging 05/07/2017 08/17/2017 Vasculitis 04/01/2017 01/17/2020 Dizziness and giddiness 03/17/2017 01/17/2020 History of prediabetes 08/05/2016 01/17/2020 Senile cataract 07/16/2015 01/17/2020 Overview:Formatting of this note might b e different from the original. 06/22/15 Cataracts and dry macular degener ation. Dr Sean Schneider O.D. scanned. Screening for intestinal cancer 07/16/2014 08/05/20 16 Anal stenosis 04/05/2013 01/17/2020 Urinary retention 03/16/2013 08/05/2016 BPH (benign prostatic hyperplasia) 03/16/201308/05 Urethral stricture 04/04/2012 08/05/2016 Impotence 04/04/2012 06/22/2020 Occlusion and stenosis of carotid artery without mention of 07/08/2010 08/05/2016 cerebral infarction Capillary angioma 06/01/2010 03/17/2016 Actinic Keratosis (Premalignant AK) 06/01/201012/24 Closed fracture of metatarsal bone(s) 05/14/2010 Abnormality of gait 05/14/2010 08/05/2016 OM (osteomyelitis) 04/03/2010 08/05/2016 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out mentio n 03/28/2010 06/10/2010 of complication, not stated as uncontrolled 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 03/28/2010 06/10/2010 manifestations, not stated as uncontrolled(250.60) Benign neoplasm of skin of lower limb, including hip 008 08/05/2016 Dyshidrosis 11/07/2007 08/05/2016 Other atopic dermatitis and related conditions 07/05/2007 08/12/2015 Unspecified pruritic disorder 07/05/2007 03/17/2016 ECZEMATOUS DERMATITIS NOS 07/05/2007 08/05/2016 Other psoriasis 07/05/2007 06/19/2020 XEROSIS///SEBACEOUS GLAND DIS NEC 07/05/20072014 SOLAR LENTIGINES///DYSCHROMIA OTHER 07/05/200707/24 Other seborrheic keratosis 07/05/2007 03/18/2015 ACTINIC DAMAGE///CHR SOLAR SKIN DAMAGE NOS 07/05/2007 08/12/2015 Other hammer toe (acquired) 06/22/2007 08/17/2017 Hallux valgus (acquired) 06/22/2007 03/17/2016 PSORIATIC ARTHRITIS 09/29/2006 08/17/2017 HYPERLIPIDEMIA 07/21/2006 03/17/2016 Atherosclerosis of coronary artery bypass graft 07/21/2006 06/22/2020 ANEMIA NORMOCYTIC 07/21/2006 06/22/2020 ABNORMAL GLUCOSE 07/21/2006 08/12/2015 Retention of urine, unspecified 03/19/2006 08/05/20 16 Bladder neck obstruction 03/19/2006 08/05/2016 Hydronephrosis 03/19/2006 05/24/2006 Hemorrhage of rectum and anus 08/05/2016 documented as of this encounter (statuses as of 09/18/2022)[facility] 02-03-2020 History of Past illness Narrative Problem Noted Date Resolved Date Subacute osteomyelitis of right foot 02/03/2020 Sinus node dysfunction 09/22/2019 06/22/2020 Chronic obstructive pulmonary disease (COPD) 03/03/2019 06/19/2020 Fatigue 06/03/2017 06/22/2020 Abnormal ANCA test 05/07/2017 06/22/2020 Abnormal finding on imaging 05/07/2017 08/17/2017 Vasculitis 04/01/2017 01/17/2020 Dizziness and giddiness 03/17/2017 01/17/2020 History of prediabetes 08/05/2016 01/17/2020 Senile cataract 07/16/2015 01/17/2020 Overview:Formatting of this note might b e different from the original. 06/22/15 Cataracts and dry macular degener ation. Dr Sean Schneider O.D. scanned. Screening for intestinal cancer 07/16/2014 08/05/20 16 Anal stenosis 04/05/2013 01/17/2020 Urinary retention 03/16/2013 08/05/2016 BPH (benign prostatic hyperplasia) 03/16/201308/05 Urethral stricture 04/04/2012 08/05/2016 Impotence 04/04/2012 06/22/2020 Occlusion and stenosis of carotid artery without mention of 07/08/2010 08/05/2016 cerebral infarction Capillary angioma 06/01/2010 03/17/2016 Actinic Keratosis (Premalignant AK) 06/01/201012/24 Closed fracture of metatarsal bone(s) 05/14/2010 Abnormality of gait 05/14/2010 08/05/2016 OM (osteomyelitis) 04/03/2010 08/05/2016 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out mentio n 03/28/2010 06/10/2010 of complication, not stated as uncontrolled 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 03/28/2010 06/10/2010 manifestations, not stated as uncontrolled(250.60) Benign neoplasm of skin of lower limb, including hip 008 08/05/2016 Dyshidrosis 11/07/2007 08/05/2016 Other atopic dermatitis and related conditions 07/05/2007 08/12/2015 Unspecified pruritic disorder 07/05/2007 03/17/2016 ECZEMATOUS DERMATITIS NOS 07/05/2007 08/05/2016 Other psoriasis 07/05/2007 06/19/2020 XEROSIS///SEBACEOUS GLAND DIS NEC 07/05/20072014 SOLAR LENTIGINES///DYSCHROMIA OTHER 07/05/200707/24 Other seborrheic keratosis 07/05/2007 03/18/2015 ACTINIC DAMAGE///CHR SOLAR SKIN DAMAGE NOS 07/05/2007 08/12/2015 Other hammer toe (acquired) 06/22/2007 08/17/2017 Hallux valgus (acquired) 06/22/2007 03/17/2016 PSORIATIC ARTHRITIS 09/29/2006 08/17/2017 HYPERLIPIDEMIA 07/21/2006 03/17/2016 Atherosclerosis of coronary artery bypass graft 07/21/2006 06/22/2020 ANEMIA NORMOCYTIC 07/21/2006 06/22/2020 ABNORMAL GLUCOSE 07/21/2006 08/12/2015 Retention of urine, unspecified 03/19/2006 08/05/20 16 Bladder neck obstruction 03/19/2006 08/05/2016 Hydronephrosis 03/19/2006 05/24/2006 Hemorrhage of rectum and anus 08/05/2016 documented as of this encounter (statuses as of 09/23/2022)[facility] 02-03-2020 History of Past illness Narrative Problem Noted Date Resolved Date Subacute osteomyelitis of right foot 02/03/2020 Sinus node dysfunction 09/22/2019 06/22/2020 Chronic obstructive pulmonary disease (COPD) 03/03/2019 06/19/2020 Fatigue 06/03/2017 06/22/2020 Abnormal ANCA test 05/07/2017 06/22/2020 Abnormal finding on imaging 05/07/2017 08/17/2017 Vasculitis 04/01/2017 01/17/2020 Dizziness and giddiness 03/17/2017 01/17/2020 History of prediabetes 08/05/2016 01/17/2020 Senile cataract 07/16/2015 01/17/2020 Overview:Formatting of this note might b e different from the original. 06/22/15 Cataracts and dry macular degener ation. Dr Sean Schneider O.D. scanned. Screening for intestinal cancer 07/16/2014 08/05/20 16 Anal stenosis 04/05/2013 01/17/2020 Urinary retention 03/16/2013 08/05/2016 BPH (benign prostatic hyperplasia) 03/16/201308/05 Urethral stricture 04/04/2012 08/05/2016 Impotence 04/04/2012 06/22/2020 Occlusion and stenosis of carotid artery without mention of 07/08/2010 08/05/2016 cerebral infarction Capillary angioma 06/01/2010 03/17/2016 Actinic Keratosis (Premalignant AK) 06/01/201012/24 Closed fracture of metatarsal bone(s) 05/14/2010 Abnormality of gait 05/14/2010 08/05/2016 OM (osteomyelitis) 04/03/2010 08/05/2016 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out mentio n 03/28/2010 06/10/2010 of complication, not stated as uncontrolled 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 03/28/2010 06/10/2010 manifestations, not stated as uncontrolled(250.60) Benign neoplasm of skin of lower limb, including hip 008 08/05/2016 Dyshidrosis 11/07/2007 08/05/2016 Other atopic dermatitis and related conditions 07/05/2007 08/12/2015 Unspecified pruritic disorder 07/05/2007 03/17/2016 ECZEMATOUS DERMATITIS NOS 07/05/2007 08/05/2016 Other psoriasis 07/05/2007 06/19/2020 XEROSIS///SEBACEOUS GLAND DIS NEC 07/05/20072014 SOLAR LENTIGINES///DYSCHROMIA OTHER 07/05/200707/24 Other seborrheic keratosis 07/05/2007 03/18/2015 ACTINIC DAMAGE///CHR SOLAR SKIN DAMAGE NOS 07/05/2007 08/12/2015 Other hammer toe (acquired) 06/22/2007 08/17/2017 Hallux valgus (acquired) 06/22/2007 03/17/2016 PSORIATIC ARTHRITIS 09/29/2006 08/17/2017 HYPERLIPIDEMIA 07/21/2006 03/17/2016 Atherosclerosis of coronary artery bypass graft 07/21/2006 06/22/2020 ANEMIA NORMOCYTIC 07/21/2006 06/22/2020 ABNORMAL GLUCOSE 07/21/2006 08/12/2015 Retention of urine, unspecified 03/19/2006 08/05/20 16 Bladder neck obstruction 03/19/2006 08/05/2016 Hydronephrosis 03/19/2006 05/24/2006 Hemorrhage of rectum and anus 08/05/2016 documented as of this encounter (statuses as of 09/25/2022)[facility] 02-03-2020 History of Past illness Narrative Problem Noted Date Resolved Date Subacute osteomyelitis of right foot 02/03/2020 Sinus node dysfunction 09/22/2019 06/22/2020 Chronic obstructive pulmonary disease (COPD) 03/03/2019 06/19/2020 Fatigue 06/03/2017 06/22/2020 Abnormal ANCA test 05/07/2017 06/22/2020 Long-term use of high-risk medication 05/07/2017 Abnormal finding on imaging 05/07/2017 08/17/2017 Vasculitis 04/01/2017 01/17/2020 Carotid stenosis, asymptomatic 03/23/2017 2 Dizziness and giddiness 03/17/2017 01/17/2020 Stage 3a chronic kidney disease 08/11/2016 11/06/20 22 History of prediabetes 08/05/2016 01/17/2020 Cognitive disorder 08/12/2015 11/04/2022 Senile cataract 07/16/2015 01/17/2020 Overview:Formatting of this note might b e different from the original. 06/22/15 Cataracts and dry macular degener ation. Dr Sean Schneider O.D. scanned. Screening for intestinal cancer 07/16/2014 08/05/20 16 Anal stenosis 04/05/2013 01/17/2020 Urinary retention 03/16/2013 08/05/2016 BPH (benign prostatic hyperplasia) 03/16/201308/05 Urethral stricture 04/04/2012 08/05/2016 Impotence 04/04/2012 06/22/2020 Occlusion and stenosis of carotid artery without mention of 07/08/2010 08/05/2016 cerebral infarction Capillary angioma 06/01/2010 03/17/2016 Actinic Keratosis (Premalignant AK) 06/01/201012/24 Closed fracture of metatarsal bone(s) 05/14/2010 Abnormality of gait 05/14/2010 08/05/2016 OM (osteomyelitis) 04/03/2010 08/05/2016 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out mentio n 03/28/2010 06/10/2010 of complication, not stated as uncontrolled 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 03/28/2010 06/10/2010 manifestations, not stated as uncontrolled(250.60) Benign neoplasm of skin of lower limb, including hip 008 08/05/2016 Dyshidrosis 11/07/2007 08/05/2016 Other atopic dermatitis and related conditions 07/05/2007 08/12/2015 Unspecified pruritic disorder 07/05/2007 03/17/2016 ECZEMATOUS DERMATITIS NOS 07/05/2007 08/05/2016 Other psoriasis 07/05/2007 06/19/2020 XEROSIS///SEBACEOUS GLAND DIS NEC 07/05/20072014 SOLAR LENTIGINES///DYSCHROMIA OTHER 07/05/200707/24 Other seborrheic keratosis 07/05/2007 03/18/2015 ACTINIC DAMAGE///CHR SOLAR SKIN DAMAGE NOS 07/05/2007 08/12/2015 Other hammer toe (acquired) 06/22/2007 08/17/2017 Hallux valgus (acquired) 06/22/2007 03/17/2016 PSORIATIC ARTHRITIS 09/29/2006 08/17/2017 HYPERLIPIDEMIA 07/21/2006 03/17/2016 Atherosclerosis of coronary artery bypass graft 07/21/2006 06/22/2020 ANEMIA NORMOCYTIC 07/21/2006 06/22/2020 ABNORMAL GLUCOSE 07/21/2006 08/12/2015 Retention of urine, unspecified 03/19/2006 08/05/20 16 Bladder neck obstruction 03/19/2006 08/05/2016 Hydronephrosis 03/19/2006 05/24/2006 Hemorrhage of rectum and anus 08/05/2016 documented as of this encounter (statuses as of 11/11/2022)[facility] 02-03-2020 History of Past illness Narrative Problem Noted Date Resolved Date Subacute osteomyelitis of right foot 02/03/2020 Sinus node dysfunction 09/22/2019 06/22/2020 Chronic obstructive pulmonary disease (COPD) 03/03/2019 06/19/2020 Fatigue 06/03/2017 06/22/2020 Abnormal ANCA test 05/07/2017 06/22/2020 Long-term use of high-risk medication 05/07/2017 Abnormal finding on imaging 05/07/2017 08/17/2017 Vasculitis 04/01/2017 01/17/2020 Carotid stenosis, asymptomatic 03/23/2017 2 Dizziness and giddiness 03/17/2017 01/17/2020 Stage 3a chronic kidney disease 08/11/2016 11/06/20 22 History of prediabetes 08/05/2016 01/17/2020 Cognitive disorder 08/12/2015 11/04/2022 Senile cataract 07/16/2015 01/17/2020 Overview:Formatting of this note might b e different from the original. 06/22/15 Cataracts and dry macular degener ation. Dr Sean Schneider O.D. scanned. Screening for intestinal cancer 07/16/2014 08/05/20 16 Anal stenosis 04/05/2013 01/17/2020 Urinary retention 03/16/2013 08/05/2016 BPH (benign prostatic hyperplasia) 03/16/201308/05 Urethral stricture 04/04/2012 08/05/2016 Impotence 04/04/2012 06/22/2020 Occlusion and stenosis of carotid artery without mention of 07/08/2010 08/05/2016 cerebral infarction Capillary angioma 06/01/2010 03/17/2016 Actinic Keratosis (Premalignant AK) 06/01/201012/24 Closed fracture of metatarsal bone(s) 05/14/2010 Abnormality of gait 05/14/2010 08/05/2016 OM (osteomyelitis) 04/03/2010 08/05/2016 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out mentio n 03/28/2010 06/10/2010 of complication, not stated as uncontrolled 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 03/28/2010 06/10/2010 manifestations, not stated as uncontrolled(250.60) Benign neoplasm of skin of lower limb, including hip 008 08/05/2016 Dyshidrosis 11/07/2007 08/05/2016 Other atopic dermatitis and related conditions 07/05/2007 08/12/2015 Unspecified pruritic disorder 07/05/2007 03/17/2016 ECZEMATOUS DERMATITIS NOS 07/05/2007 08/05/2016 Other psoriasis 07/05/2007 06/19/2020 XEROSIS///SEBACEOUS GLAND DIS NEC 07/05/20072014 SOLAR LENTIGINES///DYSCHROMIA OTHER 07/05/200707/24 Other seborrheic keratosis 07/05/2007 03/18/2015 ACTINIC DAMAGE///CHR SOLAR SKIN DAMAGE NOS 07/05/2007 08/12/2015 Other hammer toe (acquired) 06/22/2007 08/17/2017 Hallux valgus (acquired) 06/22/2007 03/17/2016 PSORIATIC ARTHRITIS 09/29/2006 08/17/2017 HYPERLIPIDEMIA 07/21/2006 03/17/2016 Atherosclerosis of coronary artery bypass graft 07/21/2006 06/22/2020 ANEMIA NORMOCYTIC 07/21/2006 06/22/2020 ABNORMAL GLUCOSE 07/21/2006 08/12/2015 Retention of urine, unspecified 03/19/2006 08/05/20 16 Bladder neck obstruction 03/19/2006 08/05/2016 Hydronephrosis 03/19/2006 05/24/2006 Hemorrhage of rectum and anus 08/05/2016 documented as of this encounter (statuses as of 11/11/2022)[facility] 02-03-2020 History of Past illness Narrative Problem Noted Date Resolved Date Subacute osteomyelitis of right foot 02/03/2020 Sinus node dysfunction 09/22/2019 06/22/2020 Chronic obstructive pulmonary disease (COPD) 03/03/2019 06/19/2020 Fatigue 06/03/2017 06/22/2020 Abnormal ANCA test 05/07/2017 06/22/2020 Long-term use of high-risk medication 05/07/2017 Abnormal finding on imaging 05/07/2017 08/17/2017 Vasculitis 04/01/2017 01/17/2020 Carotid stenosis, asymptomatic 03/23/2017 2 Dizziness and giddiness 03/17/2017 01/17/2020 Stage 3a chronic kidney disease 08/11/2016 11/06/20 22 History of prediabetes 08/05/2016 01/17/2020 Cognitive disorder 08/12/2015 11/04/2022 Senile cataract 07/16/2015 01/17/2020 Overview:Formatting of this note might b e different from the original. 06/22/15 Cataracts and dry macular degener ation. Dr Sean Schneider O.D. scanned. Screening for intestinal cancer 07/16/2014 08/05/20 16 Anal stenosis 04/05/2013 01/17/2020 Urinary retention 03/16/2013 08/05/2016 BPH (benign prostatic hyperplasia) 03/16/201308/05 Urethral stricture 04/04/2012 08/05/2016 Impotence 04/04/2012 06/22/2020 Occlusion and stenosis of carotid artery without mention of 07/08/2010 08/05/2016 cerebral infarction Capillary angioma 06/01/2010 03/17/2016 Actinic Keratosis (Premalignant AK) 06/01/201012/24 Closed fracture of metatarsal bone(s) 05/14/2010 Abnormality of gait 05/14/2010 08/05/2016 OM (osteomyelitis) 04/03/2010 08/05/2016 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out mentio n 03/28/2010 06/10/2010 of complication, not stated as uncontrolled 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 03/28/2010 06/10/2010 manifestations, not stated as uncontrolled(250.60) Benign neoplasm of skin of lower limb, including hip 008 08/05/2016 Dyshidrosis 11/07/2007 08/05/2016 Other atopic dermatitis and related conditions 07/05/2007 08/12/2015 Unspecified pruritic disorder 07/05/2007 03/17/2016 ECZEMATOUS DERMATITIS NOS 07/05/2007 08/05/2016 Other psoriasis 07/05/2007 06/19/2020 XEROSIS///SEBACEOUS GLAND DIS NEC 07/05/20072014 SOLAR LENTIGINES///DYSCHROMIA OTHER 07/05/200707/24 Other seborrheic keratosis 07/05/2007 03/18/2015 ACTINIC DAMAGE///CHR SOLAR SKIN DAMAGE NOS 07/05/2007 08/12/2015 Other hammer toe (acquired) 06/22/2007 08/17/2017 Hallux valgus (acquired) 06/22/2007 03/17/2016 PSORIATIC ARTHRITIS 09/29/2006 08/17/2017 HYPERLIPIDEMIA 07/21/2006 03/17/2016 Atherosclerosis of coronary artery bypass graft 07/21/2006 06/22/2020 ANEMIA NORMOCYTIC 07/21/2006 06/22/2020 ABNORMAL GLUCOSE 07/21/2006 08/12/2015 Retention of urine, unspecified 03/19/2006 08/05/20 16 Bladder neck obstruction 03/19/2006 08/05/2016 Hydronephrosis 03/19/2006 05/24/2006 Hemorrhage of rectum and anus 08/05/2016 documented as of this encounter (statuses as of 01/07/2023)[facility] Evaluation note Diagnosis Hammer toes of both feet- Primary Hyperkeratosis Acquired keratoderma PAD (peripheral artery disease) (HCC) Peripheral vascular disease, unspecified [facility] Diagnosis Mild cognitive disorder Unspecified persistent mental disorders due to conditions classified elsewhere BPH with obstruction/lower urinary tract symptoms Hypertrophy of prostate with urinary obs truction and other lower urinary tract symptoms (LUTS) Hyperuricemia Other abnormal blood chemistry [facility] Diagnosis Hyperkeratosis- Primary Acquired keratoderma PAD (peripheral artery disease) (HCC) Peripheral vascular disease, unspecified Hammer toes of both feet [facility] Diagnosis General weakness- Primary Other malaise and fatigue Diarrhea, unspecified type [facility] Diagnosis Hyperkeratosis- Primary Acquired keratoderma PAD (peripheral artery disease) (HCC) Peripheral vascular disease, unspecified Hammer toes of both feet Onychomycosis Dermatophytosis of nail Amputation of little toe, right, subsequ ent encounter ([facility]) [facility] Diagnosis Asthenia- Primary Other malaise and fatigue Essential hypertension Unspecified essential hypertension Dizziness Dizziness and giddiness 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) Alzheimer's disease Mild protein-calorie malnutrition (HCC) Malnutrition of mild degree Stage 3a chronic kidney disease ([facility]) Vasomotor rhinitis Allergic rhinitis, cause unspecified [facility] encounterC[facility] ClinicEvaluation [facility] Diagnosis Hyperkeratosis- Primary Acquired keratoderma PAD (peripheral artery disease) (HCC) Peripheral vascular disease, unspecified Hammer toes of both feet documented [facility] ClinicEvaluation [facility] Diagnosis Hyperkeratosis- Primary Acquired keratoderma Hammer toes of both feet Onychomycosis Dermatophytosis of nail Amputation of little toe, right, subsequ ent encounter ([facility]) documented in [facility] encounterC[facility] ClinicEvaluation [facility] Diagnosis 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)- Primary documented in [facility] encounterC[facility] ClinicEvaluation note Diagnosis Hyperkeratosis- Primary Acquired keratoderma documented in [facility] encounterC[facility] ClinicEvaluation note Diagnosis 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)- Primary Alzheimer's disease Essential hypertension Unspecified essential hypertension Idiopathic peripheral neuropathy Unspecified hereditary and idiopathic pe ripheral neuropathy documented in [facility] encounterC[facility] ClinicEvaluation note Diagnosis BPH with obstruction/lower urinary tract symptoms Hypertrophy of prostate with urinary obs truction and other lower urinary tract symptoms (LUTS) documented in [facility] encounterC[facility] ClinicEvaluation note Diagnosis BPH with obstruction/lower urinary tract symptoms Hypertrophy of prostate with urinary obs truction and other lower urinary tract symptoms (LUTS) documented in [facility] encounterC[facility] ClinicEvaluation note Diagnosis Hyperkeratosis- Primary Acquired keratoderma Onychomycosis Dermatophytosis of nail Amputation of little toe, right, subsequ ent encounter ([facility]) PAD (peripheral artery disease) ([facility]) Peripheral vascular disease, unspecified Hammer toes of both feet documented in this encounterC[facility] ClinicEvaluation note Diagnosis Injury to fingernail of right hand, init ial encounter- Primary [facility] Hyperkeratosis- Primary Acquired keratoderma Onychomycosis Dermatophytosis of nail Amputation of little toe, right, subsequ ent encounter (HCC) PAD (peripheral artery disease) ([facility]) Peripheral vascular disease, unspecified Hammer toes of both feet [facility] Summary Purpose Family History No Family History Records FoundNo Family History Records FoundNo Family History Records FoundNo Family History Records Found Advance Directives No Advanced Directives Records Found Documents on File Type Date Recorded Patient 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 Explanati on Advance Directive(s) 08/20/2021 10:39 PM Advance Directive(s) 09/22/2019 8:04 AM Documents on File Type Date Recorded Patient 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 Patients with a score of 40 or above are considered highest risk for readmission. Specific patient level drivers will be l isted at the bottom of the summary. Admission Information Admission Information ADMIT DATE: 09/22/2019 DISCHARGE DATE: 09/23/2019 MY DOCTORS AND MEDICAL TEAM: [facility] Doctor: Holland Ordonez Primary Care Provider: Jason Snider MD [facility] Team Members: Treatment Team: Attending Provider: Holland Ordonez MY CONDITI ON AT DISCHARGE: Good REASON I WAS IN THE (more content not included)... Additional Source Comments (unrecognized section and cont ent) No Status Records FoundNo Preg cuong Status Records FoundNo Status Records FoundNo Status Records Found INFORMATION SOURCE (unrecognized section and content) DATE CREATED AUTHOR AUTHOR'S ORGANIZ ATION 09/25/2019 [facility] DATE CREATED AUTHOR AUTHOR'S ORGANIZATIO N 09/29/2019 [facility] DATE CREATED AUTHOR AUTHOR'S ORGANIZATIO N 12/18/2022 [facility] DATE CREATED AUTHOR AUTHOR'S ORGANIZATIO N 01/08/2023 [facility] Vega wilcox Source Comments (unrecognized section an d content) In the event this information is protect ed by the Federal Confidentiality of Alcohol and Drug Abuse Patient Records regulatio ns: This information has been disclosed to you from records protected by Federal co nfidentiality rules ( The Federal rules restrict any use of the information to criminally investigate or prosecute any alcohol or drug abuse patient. [facility] the event this information is protected by t cayla Federal Confidentiality of Alcohol and Drug Abuse Patient Records regulations: This information has been disclosed to you from records protected by Federal confid entiality rules ( The Federal rules restrict any use of th e information to criminally investigate or prosecute any alcohol or drug abuse maribel ent. [facility]In the event this information is protected by the Federal Confidentiality of Alcohol and Drug Abuse Patient Records regulations: This inform ation has been disclosed to you from records protected by Federal confidentiality rul es ( The Federal rules restrict any use of the in formation to criminally investigate or prosecute any alcohol or drug abuse maribel ent. [facility]In the event this information is protected by the Federal Confidentiality of Alcohol and Drug Abuse Patient Records regulations: This inform ation has been disclosed to you from records protected by Federal confidentiality rul es ( The Federal rules restrict any use of the in formation to criminally investigate or prosecute any alcohol or drug abuse maribel ent. [facility]In the event this information is protected by the Federal Confidentiality of Alcohol and Drug Abuse Patient Records regulations: This inform ation has been disclosed to you from records protected by Federal confidentiality rul es ( The Federal rules restrict any use of the in formation to criminally investigate or prosecute any alcohol or drug abuse maribel ent. [facility]In the event this information is protected by the Federal Confidentiality of Alcohol and Drug Abuse Patient Records regulations: This inform ation has been disclosed to you from records protected by Federal confidentiality rul es ( The Federal rules restrict any use of the in formation to criminally investigate or prosecute any alcohol or drug abuse maribel ent. [facility]In the event this information is protected by the Federal Confidentiality of Alcohol and Drug Abuse Patient Records regulations: This inform ation has been disclosed to you from records protected by Federal confidentiality rul es ( The Federal rules restrict any use of the in formation to criminally investigate or prosecute any alcohol or drug abuse maribel ent. [facility]In the event this information is protected by the Federal Confidentiality of Alcohol and Drug Abuse Patient Records regulations: This inform ation has been disclosed to you from records protected by Federal confidentiality rul es ( The Federal rules restrict any use of the in formation to criminally investigate or prosecute any alcohol or drug abuse maribel ent. [facility]In the event this information is protected by the Federal Confidentiality of Alcohol and Drug Abuse Patient Records regulations: This inform ation has been disclosed to you from records protected by Federal confidentiality rul es ( The Federal rules restrict any use of the in formation to criminally investigate or prosecute any alcohol or drug abuse maribel ent. [facility]In the event this information is protected by the Federal Confidentiality of Alcohol and Drug Abuse Patient Records regulations: This inform ation has been disclosed to you from records protected by Federal confidentiality rul es ( The Federal rules restrict any use of the in formation to criminally investigate or prosecute any alcohol or drug abuse maribel ent. [facility]In the event this information is protected by the Federal Confidentiality of Alcohol and Drug Abuse Patient Records regulations: This inform ation has been disclosed to you from records protected by Federal confidentiality rul es ( The Federal rules restrict any use of the in formation to criminally investigate or prosecute any alcohol or drug abuse maribel ent. [facility]In the event this information is protected by the Federal Confidentiality of Alcohol and Drug Abuse Patient Records regulations: This inform ation has been disclosed to you from records protected by Federal confidentiality rul es ( The Federal rules restrict any use of the in formation to criminally investigate or prosecute any alcohol or drug abuse maribel ent. [facility]In the event this information is protected by the Federal Confidentiality of Alcohol and Drug Abuse Patient Records regulations: This inform ation has been disclosed to you from records protected by Federal confidentiality rul es ( The Federal rules restrict any use of the in formation to criminally investigate or prosecute any alcohol or drug abuse maribel ent. [facility]In the event this information is protected by the Federal Confidentiality of Alcohol and Drug Abuse Patient Records regulations: This inform ation has been disclosed to you from records protected by Federal confidentiality rul es ( The Federal rules restrict any use of the in formation to criminally investigate or prosecute any alcohol or drug abuse maribel ent. [facility]In the event this information is protected by the Federal Confidentiality of Alcohol and Drug Abuse Patient Records regulations: This inform ation has been disclosed to you from records protected by Federal confidentiality rul es ( The Federal rules restrict any use of the in formation to criminally investigate or prosecute any alcohol or drug abuse maribel ent. [facility]In the event this information is protected by the Federal Confidentiality of Alcohol and Drug Abuse Patient Records regulations: This inform ation has been disclosed to you from records protected by Federal confidentiality rul es ( The Federal rules restrict any use of the in formation to criminally investigate or prosecute any alcohol or drug abuse maribel ent. [facility]In the event this information is protected by the Federal Confidentiality of Alcohol and Drug Abuse Patient Records regulations: This inform ation has been disclosed to you from records protected by Federal confidentiality rul es ( The Federal rules restrict any use of the in formation to criminally investigate or prosecute any alcohol or drug abuse maribel ent. [facility]In the event this information is protected by the Federal Confidentiality of Alcohol and Drug Abuse Patient Records regulations: This inform ation has been disclosed to you from records protected by Federal confidentiality rul es ( The Federal rules restrict any use of the in formation to criminally investigate or prosecute any alcohol or drug abuse maribel ent. [facility]In the event this information is protected by the Federal Confidentiality of Alcohol and Drug Abuse Patient Records regulations: This inform ation has been disclosed to you from records protected by Federal confidentiality rul es ( The Federal rules restrict any use of the in formation to criminally investigate or prosecute any alcohol or drug abuse maribel ent. [facility]In the event this information is protected by the Federal Confidentiality of Alcohol and Drug Abuse Patient Records regulations: This inform ation has been disclosed to you from records protected by Federal confidentiality rul es ( The Federal rules restrict any use of the in formation to criminally investigate or prosecute any alcohol or drug abuse maribel ent. [facility]In the event this information is protected by the Federal Confidentiality of Alcohol and Drug Abuse Patient Records regulations: This inform ation has been disclosed to you from records protected by Federal confidentiality rul es ( The Federal rules restrict any use of the in formation to criminally investigate or prosecute any alcohol or drug abuse maribel ent. [facility]In the event this information is protected by the Federal Confidentiality of Alcohol and Drug Abuse Patient Records regulations: This inform ation has been disclosed to you from records protected by Federal confidentiality rul es ( The Federal rules restrict any use of the in formation to criminally investigate or prosecute any alcohol or drug abuse maribel ent. [facility]In the event this information is protected by the Federal Confidentiality of Alcohol and Drug Abuse Patient Records regulations: This inform ation has been disclosed to you from records protected by Federal confidentiality rul es ( The Federal rules restrict any use of the in formation to criminally investigate or prosecute any alcohol or drug abuse maribel [facility] Reason for Visit (unrecognized section a nd content) Reason Comments Release Of Medical Records Reason Comments Established Patient hammer toes Reason Onset Date Comments Refill Request 03/27/2022 Reason Comments Established Patient Hammer Toe Reason Comments Other black nail Follow Up Callous Reason Comments Follow Up Reason Comments Established Patient Follow Up Reason Comments Follow Up Established Patient Reason Comments OT EVAL Specialty Diagnoses / Procedures Referred By Contact Refer red To Contact Occupational Therapy / Diagnoses alzheimers disease, drivers eval g30.1 Mohan Benitez Julie A, OCCUPATIONAL THERAPY Procedures NEW RS OT 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, 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 OT/L [address] [place] [address] Referral ID Status Reason Start Date Expiration Date Visits V isits Requested Authorized [id number] Authorized 11/22/2021 11/21/2022 99 99 Reason Comments Established Patient Callous Follow Up Reason Comments 4 month f/u Reason Onset Date Comments Refill Request 09/22/2022 Reason Comments Results Reason Comments Established Patient Follow Up Pain Reason Comments Finger Injury left hand middle fingernail ripped x this afternoon Care Teams (unrecognized section and con tent) Zoning Technician Relationship Specialty Start Date End Date Jason Snider MD PCP - General Internal Medicine 08/10/16 [address] [facility] [place] [address] Augusto Tran Specialty Supervisor [facility] Card[facility] 08/25/19 [address] [place] [address] Kenan Mari Specialty Supervisor [facility] Pulmonary Disease 08/25/19 [address] [place] [address] Lorne Andrew Jr., Specialty Supervisor [facility] Ophthalmology 08/25/19 DO [address] [place] [address] Aracelis Aceves Specialty Supervisor [facility] Podiatry 08/25/19 [address] [facility] [place] [address] Claude He Specialty Supervisor [employer] [facility] Cerebrovascular 08/25/19 Dariusz [address] [place] [address] Zoning Technician Relationship Specialty Start Date End Date Jason Snider MD PCP - General Internal Medicine 08/10/16 [address] [facility] [place] [address] Augusto Tran Specialty Supervisor [facility] Card[facility] 08/25/19 [address] [place] [address] Kenan Mari Specialty Supervisor [facility] Pulmonary Disease 08/25/19 [address] [place] [address] Lorne Andrew Jr., Specialty Supervisor [facility] Ophthalmology 08/25/19 DO [address] [place] [address] Aracelis Aceves Specialty Supervisor [facility] Podiatry 08/25/19 [address] [place] [address] Claude He Specialty Supervisor [employer] [facility] Cerebrovascular 08/25/19 Dariusz [address] [place] [address] Zoning Technician Relationship Specialty Start Date End Date Jason Snider MD PCP - General Internal Medicine 08/10/16 [address] [facility] [place] [address] Augusto Tran Specialty Supervisor [facility] Cardiology 08/25/19 [address] [place] [address] Kenan Mari Specialty Supervisor [facility] Pulmonary Disease 08/25/[address] [facility] [place] [address] Lorne Andrew Jr., Specialty Supervisor [facility] Ophthalmology 08/25/19 DO [address] [place] [address] Aracelis Aceves Specialty Supervisor [facility] Podiatry 08/25/19 [address] [facility] [place] [address] Claude He Specialty Supervisor [employer] [facility] Cerebrovascular 08/25/19 Dariusz [address] [place] [address] Zoning Technician Relationship Specialty Start Date End Date Jason Snider MD PCP - General Internal Medicine 08/10/16 [address] [facility] [place] [address] Augusto Tran Specialty Supervisor [facility] Cardiology 08/25/19 [address] [place] [address] Kenan Mari Specialty Supervisor [facility] Pulmonary Disease 08/25/19 [address] [place] [address] Lorne Andrew Jr., Specialty Supervisor [facility] Ophthalmology 08/25/19 DO [address] [place] [address] Aracelis Aceves Specialty Supervisor [facility] Podiatry 08/25/19 [address] [facility] [place] [address] Claude He Specialty Supervisor [employer] [facility] Cerebrovascular 08/25/19 Dariusz [address] [place] [address] Zoning Technician Relationship Specialty Start Date End Date Jason Snider MD PCP - General Internal Medicine 08/10/[address] [place] [address] Augusto Tran Specialty Supervisor [facility] Cardiology 08/25/19 [address] [place] [address] Kenan Mari Specialty Supervisor [facility] Pulmonary Disease 08/25/19 [address] [place] [address] Lorne Andrew Jr., Specialty Supervisor [facility] Ophthalmology 08/25/19 DO [address] [place] [address] Aracelis Aceves Specialty Supervisor [facility] Podiatry 08/25/19 [address] [facility] [place] [address] Claude He Specialty Supervisor [employer] [facility] Cerebrovascular 08/25/19 Dariusz [address] [place] [address] Zoning Technician Relationship Specialty Start Date End Date Jason Snider MD PCP - General Internal Medicine 08/10/16 [address] [facility] [place] [address] Augusto Tran Specialty Supervisor [facility] Cardiology 08/25/19 [address] [place] [address] Kenan Mari Specialty Supervisor [facility] Pulmonary Disease 08/25/19 [address] [place] [address] Lorne Andrew Jr., Specialty Supervisor [facility] Ophthalmology 08/25/19 DO [address] [place] [address] Aracelis Aceves Specialty Supervisor [facility] Podiatry 08/25/19 [address] [facility] [place] [address] Claude He Specialty Supervisor [facility] Cerebrovascular 08/25/19 Adriusz [address] [place] [address] Zoning Technician Relationship Specialty Start Date End Date Jason Snider MD PCP - General Internal Medicine 08/10/16 [address] [facility] [place] [address] Augusto Tran Specialty Supervisor [facility] Cardiology 08/25/19 [address] [place] [address] Kenan Mari Specialty Supervisor [facility] Pulmonary Disease 08/25/19 [address] [place] [address] Lorne Andrew Jr., Specialty Supervisor [facility] Ophthalmology 08/25/19 DO [address] [place] [address] Aracelis Aceves Specialty Supervisor [facility] Podiatry 08/25/19 [address] [facility] [place] [address] Claude He Specialty Supervisor [employer] [facility] Cerebrovascular 08/25/19 Dariusz [address] [place] [address] Zoning Technician Relationship Specialty Start Date End Date Jason Snider MD PCP - General Internal Medicine 08/10/16 [address] [facility] [place] [address] Augusto Tran Specialty Supervisor [facility] Cardiology 08/25/19 [address] [place] [address] Kenan Mari Specialty Supervisor [facility] Pulmonary Disease 08/25/19 [address] [place] [address] Lorne Andrew Jr., Specialty Supervisor [facility] Ophthalmology 08/25/19 DO [address] [place] [address] Aracelis Aceves Specialty Supervisor [facility] Podiatry 08/25/19 [address] [facility] [place] [address] Claude He Specialty Supervisor [facility] Cerebrovascular 08/25/19 Dariusz [address] [place] [address] Zoning Technician Relationship Specialty Start Date End Date Jason Snider MD PCP - General Internal Medicine 08/10/16 [address] [facility] [place] [address] Augusto Tran Specialty Supervisor [facility] Cardiology 08/25/19 [address] [place] [address] Kenan Mari Specialty Supervisor [facility] Pulmonary Disease 08/25/19 [address] [place] [address] Lorne Andrew Jr., Specialty Supervisor [facility] Ophthalmology 08/25/19 DO [address] [place] [address] Aracelis Aceves Specialty Supervisor [facility] Podiatry 08/25/19 [address] [place] [address] Claude He Specialty Supervisor [facility] Cerebrovascular 08/25/19 Dariusz [address] [place] [address] Zoning Technician Relationship Specialty Start Date End Date Jason Snider MD PCP - General Internal Medicine 08/10/16 [address] [facility] [place] [address] Augusto Tran Specialty Supervisor [facility] Cardiology 08/25/19 [address] [place] [address] Kenan Mari Specialty Supervisor [facility] Pulmonary Disease 08/25/19 [address] [address] Lorne Andrew Jr., Specialty Supervisor [facility] Ophthalmology 08/25/19 DO [address] [place] [address] Aracelis Aceves Specialty Supervisor [facility] Podiatry 08/25/19 [address] [facility] [place] [address] Claude He Specialty Supervisor [employer] [facility] Cerebrovascular 08/25/19 Dariusz [address] [place] [address] Zoning Technician Relationship Specialty Start Date End Date Jason Snider MD PCP - General Internal Medicine 08/10/16 [address] [facility] [place] [address] Augusto Tran Specialty Supervisor [facility] Cardiology 08/25/19 [address] [place] [address] Kenan Mari Specialty Supervisor Research [facility] Pulmonary Disease 08/25/[address] [facility] [place] [address] Lorne Andrew Jr., Specialty Supervisor [facility] Ophthalmology 08/25/19 DO [address] [place] [address] Aracelis Aceves Specialty Supervisor [facility] Podiatry 08/25/19 [address] [place] [address] Claude He Specialty Supervisor [employer] [facility] Cerebrovascular 08/25/19 Dariusz [address] [place] [address] Zoning Technician Relationship Specialty Start Date End Date Jason Snider MD PCP - General Internal Medicine 08/10/16 [address] [facility] [place] [address] Augusto Tran Specialty Supervisor [facility] Cardiology 08/25/19 [address] [place] [address] Kenan Mari Specialty Supervisor [facility] Pulmonary Disease 08/25/19 [address] [place] [address] Lorne Andrew Jr., Specialty Supervisor [facility] Ophthalmology 08/25/19 DO [address] [place] [address] Aracelis Aceves Specialty Supervisor [facility] Podiatry 08/25/19 [address] [facility] [place] [address] Claude He Specialty Supervisor [facility] Cerebrovascular 08/25/19 Dariusz [address] [place] [address] Zoning Technician Relationship Specialty Start Date End Date Jason Snider MD PCP - General Internal Medicine 08/10/16 [address] [facility] [place] [address] Augusto Tran Specialty Supervisor [facility] Cardiology 08/25/19 [address] [place] [address] Kenan Mari Specialty Supervisor [facility] Pulmonary Disease 08/25/19 [address] [place] [address] Lorne Andrew Jr., Specialty Supervisor [facility] Ophthalmology 08/25/19 DO [address] [place] [address] Aracelis Aceves Specialty Supervisor [facility] Podiatry 08/25/19 [address] [facility] [place] [address] Claude He Specialty Supervisor [employer] [facility] Cerebrovascular 08/25/19 Dariusz [address] [place] [address] Zoning Technician Relationship Specialty Start Date End Date Jason Snider MD PCP - General Internal Medicine 08/10/16 [address] [facility] [place] [address] Augusto Tran Specialty Supervisor [facility] Cardiology 08/25/19 [address] [facility] [address] [place] [address] Kenan Mari Specialty Supervisor [facility] Pulmonary Disease 08/25/19 [address] [facility] [place] [address] Lorne Andrew Jr., Specialty Supervisor [facility] Ophthalmology 08/25/19 DO [address] [place] [address] Aracelis Aceves Specialty Supervisor [facility] Podiatry 08/25/19 [address] [facility] [place] [address] Claude He Specialty Supervisor [employer] [facility] Cerebrovascular 08/25/19 Dariusz [address] [place] [address] Zoning Technician Relationship Specialty Start Date End Date Jason Snider MD PCP - General Internal Medicine 08/10/16 [address] [facility] [place] [address] Augusto Tran Specialty Supervisor [facility] Cardiology 08/25/19 [address] [place] [address] Kenan Mari Specialty Supervisor Research [facility] Pulmonary Disease 08/25/19 [address] [place] [address] Lorne Andrew Jr., Specialty Supervisor [facility] Ophthalmology 08/25/19 DO [address] [place] [address] Aracelis Aceves Specialty Supervisor [facility] Podiatry 08/25/19 [address] [facility] [place] [address] Claude He Specialty Supervisor [employer] [facility] Cerebrovascular 08/25/19 Dariusz [address] [place] [address] Zoning Technician Relationship Specialty Start Date End Date Jason Snider MD PCP - General Internal Medicine 08/10/[address] [place] [address] Augusto Tran Specialty Supervisor [facility] Cardiology 08/25/19 [address] [place] [address] Kenan Mari Specialty Supervisor Research [facility] Pulmonary Disease 08/25/19 [address] [place] [address] Lorne Andrew Jr., Specialty Supervisor [facility] Ophthalmology 08/25/19 DO [address] [place] [address] Aracelis Aceves Specialty Supervisor [facility] Podiatry 08/25/19 [address] [facility] [place] [address] Claude He Specialty Supervisor [employer] [facility] Cerebrovascular 08/25/19 MD Dariusz [address] [place] [address] Zoning Technician Relationship Specialty Start Date End Date Jason Snider MD PCP - General Internal Medicine 08/10/16 [address] [facility] [place] [address] Augusto Tran Specialty Supervisor [facility] Cardiology 08/25/19 [address] [place] [address] Kenan Mari Specialty Supervisor Research [facility] Pulmonary Disease 08/25/19 [address] [place] [address] Lorne Andrew Jr., Specialty Supervisor [facility] Ophthalmology 08/25/19 DO [address] [place] [address] Aracelis Aceves Specialty Supervisor [facility] Podiatry 08/25/19 [address] [place] [address] Harper Heh Specialty Supervisor Research [facility] Cerebrovascular 08/25/19 MD Dariusz [address] [place] [address] Zoning Technician Relationship Specialty Start Date End Date Jason Snider MD PCP - General Internal Medicine 08/10/16 [address] [facility] [place] [address] Augusto Tran Specialty Supervisor [facility] Cardiology 08/25/19 [address] [place] [address] Kenan Mari Specialty Supervisor Research [facility] Pulmonary Disease 08/25/19 [address] [place] [address] Lorne Andrew Jr., Specialty Supervisor [facility] Ophthalmology 08/25/19 DO [address] [place] [address] Aracelis Aceves Specialty Supervisor [facility] Podiatry 08/25/19 [address] [place] [address] Claude He Specialty Supervisor [facility] Cerebrovascular 08/25/19 MD Dariusz [address] [place] [address] FOR RECORDS PERTAINING TO PATIENTS WHO ARE OR HAVE BEEN ENROLLED IN A CHEMICAL DEPENDENCY/SUBSTANCE ABUSE PROGRAM, SOME INFORMATION MAY BE OMITTED. This clinical summary was aggregated from multiple sources. Caution should be exercised in using it in the provision of clinical care. This summary normalizes information from multiple sources, and as a consequence, information in this document may materially change the coding, format and clinical context of patient data. In addition, data may be omittedin some cases. CLINICAL DECISIONS SHOULD BE BASED ON THE PRIMARY CLINICAL RECORDS. [employer] provides no warranty or guarantee of the accuracy or completeness of information in this document.
--- NOTE | 2023-02-14 18:09 | CT_ITS ---
STUDY: CT BRAIN WITHOUT CONTRAST REASON FOR EXAM: Male, 87 years old. Confusion. RADIATION DOSAGE (If Supplied By Facility): CTDIvol = ( 47.06 ) mGy, DLP = ( 978.55 ) mGycm TECHNIQUE: Transaxial CT imaging of the brain was performed without administration of intravenous contrast material. Individualized dose optimization techniques were used for this CT. COMPARISON: Pet/CT scan of the brain, May 08, 2019. FINDINGS: Normal soft tissue structures. Normal calvarium. There is mild cerebral atrophy with widening of the extra-axial spaces and ventricular dilatation. There are areas of decreased attenuation within the white matter tracts of the supratentorial brain, consistent with microvascular disease changes. Normal basal ganglia and thalami. Normal brainstem. There is mild cerebellar atrophy. There is no intracranial hemorrhage. There are no findings of an acute ischemic infarction. Normal visualized paranasal sinuses. CT/Brain/Head without Contrast IMPRESSION: Chronic involutional changes without evidence of acute intracranial or calvarial abnormality. Findings appear similar to the PET/CT scan of 2019. Electronically Signed: Chano Hartley DO at 20:04 EDT Reading Location ID and State: [address] [place] [address] Tel [phone], Service support ,
--- NOTE | 2023-02-14 18:11 | EX.ED.DYSGE1 ---
HPI History of Present Illness Chief Complaint: Weakness Narrative Narrative: 87-year-old male presenting with increasing confusion. He has dementia. His daughter states that he has been a little bit more confused this week. She states that he has been groaning and stating he does not feel well. Because of his dementia he does not remember saying these things. Currently denies any pain. Does not feel nauseous. His daughter states that he had some episodes of defecating and urinating in his pants which is atypical for him. He has not had a fever at home. He does not appear to be coughing or short of breath. 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 Benign essential HTN BPH (benign prostatic hyperplasia) Carotid artery disease Chronic gout Esophageal reflux Fatigue Hemorrhage of rectum and anus Hypothyroidism Internal hemorrhoids Interstitial lung disease Mild cognitive disorder Occlusion and stenosis of unspecified carotid artery OM (osteomyelitis) Prediabetes Presence of stent in coronary artery (~01/28/11) Psoriasis Pure hypercholesterolemia Rheumatoid arthritis Urethral stricture Home Medications allopurinol 300 mg tablet 300 mg PO DAILY GOUT 04/30/14 [History Last Taken 02/17/18] aspirin 81 mg chewable tablet 81 mg PO DAILY@0800 HEART 04/30/14 [History Last Taken 02/17/18] clopidogrel 75 mg tablet 75 mg PO DAILY ANTIPLATLET 04/30/14 [History Last Taken 02/17/18] loratadine 10 mg tablet 10 mg PO DAILY ALLGIES 04/30/14 [History Last Taken 02/17/18] multivitamin with folic acid 400 mcg tablet 1 tab PO DAILY SUPPLEMENT 04/30/14 [History Last Taken 02/17/18] omega-3 fatty acids-fish oil 340 mg-1,000 mg capsule 1 ea PO DAILY SUPPLEMENT 04/30/14 [History Last Taken 02/17/18] donepezil 10 mg tablet 10 mg PO QHS MEMORY 02/17/18 [History Last Taken 02/16/18] polyethylene glycol 3350 17 gram oral powder packet 17 g PO DAILY PRN Constipation 02/17/18 [History Last Taken Unknown] vit A 300 mcg-C 200 mg-E 27 mg-lutein 2 mg and minerals tablet 1 ea PO DAILY SUPPLEMENT 03/29/18 [History Last Taken 02/17/18] lisinopril 20 mg tablet 10 mg PO DAILY BLOOD PRESSURE 03/15/18 [History Last Taken Unknown] finasteride 5 mg tablet 5 mg PO DAILY urination 01/24/20 [History Last Taken Unknown] tamsulosin 0.4 mg capsule 0.4 mg PO DAILY urination 01/24/20 [History Last Taken Unknown] nitroglycerin 0.4 mg sublingual tablet 0.4 mg sublingual Q5M PRN Chest Pain #25 tabs 01/13/21 [Rx Last Taken Unknown] pravastatin 40 mg tablet 40 mg PO QHS 09/22/21 [History Last Taken Unknown] ofloxacin 0.3 % eye drops See Rx Instructions ophthalmic (eye) .COMPLEX 03/11/22 [History Last Taken Unknown] triamcinolone acetonide 0.1 % topical ointment 1 applic topical DAILY 03/11/22 [History Last Taken Unknown] vitamins A,C,G-gstx-sdoctk 2,148 mcg-113 mg-45 mg-17.4 mg tablet 1 tab PO ONCE 03/11/22 [History Last Taken Unknown] gabapentin 300 mg capsule 100 mg PO DAILY NERVE PAIN 09/09/22 [History Last Taken Unknown] levothyroxine 150 mcg tablet 175 mcg PO DAILY thyroid 09/09/22 [History Last Taken Unknown] Allergy/AdvReac Type Severity Reaction Status Date / Time cat dander [cats] Allergy Rash Verified 02/14/23 17:54 hyoscyamine [Hyoscyamine] Allergy Other Verified 02/14/23 17:54 metronidazole Allergy Unknown Verified 02/14/23 17:54 Seasonal Allergies: Uncoded Allergy PT UNSURE Verified 02/14/23 17:54 [environmental] OF REACTION sesame oil Allergy Other Verified 02/14/23 17:54 Sulfa (Sulfonamide Allergy Other Verified 02/14/23 17:54 Antibiotics) sulfamethoxazole Allergy Other Verified 02/14/23 17:54 [From Bactrim] tree nut [Tree Nut] Allergy Other Verified 02/14/23 17:54 trimethoprim [From Bactrim] Allergy Other Verified 02/14/23 17:54 Family History (Updated 02/14/23 @ 20:[address] Milady Crabtree MD) Father Heart disease Diabetes Mother Hypertension Prediabetes Surgical History History of amputation of lesser toe History of bunionectomy of right great toe History of cardiac catheterization History of cataract surgery History of coronary artery bypass surgery (~06/11/97) History of hemorrhoidectomy History of knee surgery History of left-sided carotid endarterectomy (~1997) History of prostatectomy History of right-sided carotid endarterectomy (~05/04/14) History of tonsillectomy History of transurethral resection of prostate History of vasectomy Hx of colonoscopy Presence of coronary angioplasty implant and graft (~01/28/11) Social History household members: none Smoking Status: Never smoker second hand exposure: No alcohol intake: never substance use type: does not use caffeine: Yes Type: carbonated beverages Number of servings: 2 what type of physical activity do you participate in: walking frequency: daily duration: 45-60 minutes/day seatbelt use: always ROS ROS ED Constitutional Constitutional ED: Denies chills or fever(s) Eyes Eyes: Denies change in vision or diplopia ENT ENT ED: Denies rhinorrhea or sore throat Cardiovascular Cardiovascular: Denies chest pain or palpitations Respiratory/Chest Respiratory/Chest: Denies cough or dyspnea Gastrointestinal Gastrointestinal: Reports diarrhea; Denies abdominal pain Genitourinary Genitourinary ED: Denies dysuria or hematuria Musculoskeletal Musculoskeletal: Denies arthralgias or back pain Integumentary Denies abscess Neurologic Neurologic: Denies headache(s) or paresthesias EXAM Physical Exam Const Vital Signs: 02/14/23 17:49 02/14/23 17:55 02/14/23 19:48 Temperature 98.3 F Temperature Source Oral Pulse Rate 65 64 Respiratory Rate 17 16 Respiratory Effort Normal Non-Labored Respiratory Pattern Normal Blood Pressure 121/63 H 127/7 H Blood Pressure Mean 82 47 Pulse Ox 94 96 Oxygen Delivery Method Room Air Room Air 02/14/23 20:39 02/14/23 21:08 Temperature 98.2 F Temperature Source Temporal Pulse Rate 69 65 Respiratory Rate 14 18 Respiratory Effort Respiratory Pattern Blood Pressure 124/71 H 102/58 L Blood Pressure Mean 88 72 Pulse Ox 96 94 Oxygen Delivery Method Room Air Room Air Positive well nourished General Appearance ED: NAD HEENT Reports moist mucous membranes Eyes PERRL and EOMs intact bilaterally Resp normal respiratory effort and clear to auscultation bilaterally Auscultation: Negative for rales, rhonchi or wheezes Cardio regular rate and regular rhythm GI normal to inspection, nondistended, normoactive bowel sounds Back/Spine no CVA tenderness Extremity normal to inspection Neuro oriented x3 and CN's II-XII intact bilaterally Sensorium / Orientation: alert Psych mental status grossly normal Skin no rashes or lesions noted MDM MDM MDM Narrative Medical decision making narrative: Patient presenting with confusion. He has baseline dementia but has been more confused. He is defecating and urinating in his pants. Daughter states he has diarrhea. No fevers at home. We will obtain a CBC to assess white blood cell count, hemoglobin and platelets, differential. CMP to assess liver function, renal function, electrolytes, glucose, anion gap. High-sensitivity troponin is added as well as a EKG and a chest x-ray given the patient is a poor informant and does not recall groaning in pain. His abdomen is benign. Vital signs are stable. CBC shows a slight leukocytosis. Hemoglobin chronic are stable. Platelets are normal. Creatinine is elevated at 2.36 so the patient was ordered a liter of normal saline. LFTs unremarkable. Urinalysis was negative for infection. Due to the change in mental status I did obtain a CT of the brain which is negative. Given the fact that the patient is having bowel movements/diarrhea and has altered mental status with a leukocytosis I think a CT of the abdomen pelvis without contrast due to his renal function. This showed enteritis. Given patient's UMBERTO and confusion I spoke with the hospitalist for admission. Impression: 1. Acute kidney injury 2. Confusion Lab Data Labs: Laboratory Results - last 24 hr 02/14/23 02/14/23 02/14/23 17:45 17:45 17:45 WBC 14.5 H RBC 4.41 L Hgb 13.5 Hct 41.4 MCV 93.9 MCH 30.6 MCHC 32.6 RDW Std Deviation 46.4 H RDW Coeff of Priya 13.5 Plt Count 218 MPV 9.5 Immature Gran % (Auto) 0.600 Neut % (Auto) 81.4 H Lymph % (Auto) 7.4 L Warrick % (Auto) 10.3 H Eos % (Auto) 0.1 Baso % (Auto) 0.2 Absolute Neuts (auto) 11.8 H Absolute Lymphs (auto) 1.07 Nucleated RBC % 0 Sodium 137 Potassium 4.8 Chloride 104 Carbon Dioxide 26.0 Anion Gap 7 BUN 39 H Creatinine 2.36 H Estim Creat Clear Calc 24.20 Est GFR (MDRD) Af Amer 34 L Est GFR (MDRD) Non-Af 28 L BUN/Creatinine Ratio 16.5 Glucose 120 H Calcium 10.3 H Phosphorus 2.3 L Magnesium 2.2 Total Bilirubin 0.90 AST 67 H ALT 26 Alkaline Phosphatase 74 Troponin I High Sens 31 Total Protein 7.1 Albumin 3.3 Globulin 3.8 Albumin/Globulin Ratio 0.9 Urine Color Urine Clarity Urine pH Ur Specific [place] Urine Protein Urine Glucose (UA) Urine Ketones Urine Occult Blood Urine Nitrite Urine Bilirubin Urine Urobilinogen Ur Leukocyte Esterase Urine RBC Urine WBC Ur Squamous Epith Cells Urine Bacteria Hyaline Casts Urine Mucus 02/14/23 19:45 WBC RBC Hgb Hct MCV MCH MCHC RDW Std Deviation RDW Coeff of Priya Plt Count MPV Immature Gran % (Auto) Neut % (Auto) Lymph % (Auto) [place] % (Auto) Eos % (Auto) Baso % (Auto) Absolute Neuts (auto) Absolute Lymphs (auto) Nucleated RBC % Sodium Potassium Chloride Carbon Dioxide Anion Gap BUN Creatinine Estim Creat Clear Calc Est GFR (MDRD) Af Amer Est GFR (MDRD) Non-Af BUN/Creatinine Ratio Glucose Calcium Phosphorus Magnesium Total Bilirubin AST ALT Alkaline Phosphatase Troponin I High Sens Total Protein Albumin Globulin Albumin/Globulin Ratio Urine Color Yellow Urine Clarity Clear Urine pH 6.5 Ur Specific [place] 1.015 Urine Protein 30 H Urine Glucose (UA) Normal Urine Ketones Negative Urine Occult Blood 250 H Urine Nitrite Negative Urine Bilirubin Negative Urine Urobilinogen 1 H Ur Leukocyte Esterase 25 H Urine RBC 0-5 SEEN Urine WBC 0-5 SEEN Ur Squamous Epith Cells 0-5 SEEN Urine Bacteria 0 SEEN Hyaline Casts 0-5 SEEN Urine Mucus 0 SEEN Radiography Diagnostic Testing: Clinical Impression(s) from Imaging Studies Brain CT 02/14/23 18:09 IMPRESSION: Chronic involutional changes without evidence of acute intracranial or calvarial abnormality. Findings appear similar to the PET/CT scan of 2019. Electronically Signed: Chano Hartley DO at 20:04 EDT Reading Location ID and State: [address] [place] [address] Tel [phone], Service support , Chest X-Ray 02/14/23 18:15 IMPRESSION: 1. Interval placement of a cardiac pacemaker. There is no acute cardiopulmonary disease or major interval change. Electronically Signed: Chano HartleyDO at 18:49 EDT Reading Location ID and State: [address] [place] [address] Tel [phone], Service support , Abdomen/Pelvis CT 02/14/23 19:14 IMPRESSION: 1. Fluid-filled small bowel loops. The possibility of enteritis cannot BE ruled out. 2. Pulmonary fibrosis with calcified pleural plaque. The possibility of asbestos related pleural disease cannot be ruled out. 3. Evidence of old granulomatous disease. 4. Cardiac pacemaker. 5. Right renal cyst. 6. 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 There is no acute fracture or dislocation. Electronically Signed: Chano Hartley DO at 20:00 EDT Reading Location ID and State: [address] [place] [address] Tel [phone], Service support , Discharge Plan Triage Chief Complaint: Weakness ED Provider: Ivan Raphael Dx/Rx/DC Orders Prescriptions: No Action nitroglycerin 0.4 mg tablet, sublingual 0.4 mg SUBLINGUAL Q5M PRN (Reason: Chest Pain) Qty: 25 3RF pravastatin 40 mg tablet 40 mg PO QHS ofloxacin 0.3 % drops See Rx Instructions ophthalmic (eye) .COMPLEX Rx Instructions: put 1-2 drps into affected eye(s) every 2-4 h x 2 days, then 1-2 drps 4 times/day days 3-7 ophthalmic (eye) triamcinolone acetonide 0.1 % ointment 1 applic topical DAILY vitamins A,C,B-keww-zyemdo 7,160 unit- 113 mg-100 unit tablet 1 tab PO ONCE Rx Instructions: administer with AM and PM meals allopurinol 300 MG tablet 300 mg PO DAILY Label Comments: GOUT clopidogrel 75 MG tablet 75 mg PO DAILY Label Comments: ANTIPLATELET aspirin 81 MG tablet,chewable 81 mg PO DAILY@0800 Label Comments: BLOOD THINNER/HEART loratadine 10 MG tablet 10 mg PO DAILY Label Comments: ALLERGIES omega-3 fatty acids-fish oil 1 EACH capsule 1 ea PO DAILY Label Comments: SUPPLEMENT multivitamin with folic acid 1 TABLET tablet 1 tab PO DAILY Label Comments: VITAMIN lisinopril 20 mg tablet 10 mg PO DAILY Label Comments: BLOOD PRESSURE gabapentin 300 mg capsule 100 mg PO DAILY Label Comments: NERVE PAIN levothyroxine 150 mcg tablet 175 mcg PO DAILY Label Comments: THYROID polyethylene glycol 3350 17 GM packet 17 g PO DAILY PRN (Reason: Constipation) donepezil 10 MG tablet 10 mg PO QHS vit A,C and J-mlvlwj-hyuddcfu 1 EACH tablet 1 ea PO DAILY tamsulosin 0.4 MG capsule 0.4 mg PO DAILY finasteride 5 MG tablet 5 mg PO DAILY Primary Care Provider: Jason Snider Referrals: Jason Snider MD [Primary Care Provider] -
--- NOTE | 2023-02-14 18:15 | RAD_ITS ---
STUDY: X-RAY CHEST REASON FOR EXAM: Male, 87 years old. Weakness. Decreased appetite and incontinence of bowel. TECHNIQUE: Single AP portable view of the chest. COMPARISON: February 17, 2018 FINDINGS: Decreased inspiratory effort. There is atelectatic changes at the lung bases without acute infiltrate or mass. Stable pulmonary fibrosis. There is calcified pleural plaque along the left diaphragmatic surface. Sternal cerclage wires and vascular clips are present from a prior sternotomy and coronary artery bypass graft procedure (CABG). The heart is normal in size. There is now a left-sided dual-lead cardiac pacemaker. Normal mediastinum and lul. Normal visualized pulmonary arteries. Normal visualized aortic arch and descending thoracic aorta. The thoracic spine is obscured by the mediastinum. Normal visualized ribs, clavicles, and shoulders. There is no demonstrated abnormality of the visualized soft tissue structures of the upper abdomen. RAD/Chest 1 View (Portable) IMPRESSION: 1. Interval placement of a cardiac pacemaker. There is no acute cardiopulmonary disease or major interval change. Electronically Signed: Chano Hartley DO at 18:49 EDT ,
--- OUTSIDE RECORDS SUMMARY | 2023-02-14 18:24 | XMS RPT_ITS | CCD ---
:1935 Author Organization [facility] Care Team Providers Name Role Phone Jason [...] Testralow, Aracelis Unavailable Claude He MD Unavailable JASON SNIDER Attending Unavailable JASON SNIDER [...] Allergen(s) Onset Cat; Translations: Propensity to 07-21-20 [facility] (20 sources) [CATS] adverse 06 Clinic reactions Hyoscyamine; Drug Allergy 08-23-20 Unknown [facility] (20 sources) Translations: 03 Clinic [HYOSCYAMINE] metroNIDAZOLE; Drug Allergy 08-23-20 Unknown [facility] (20 sources) Translations: 03 Clinic [METRONIDAZOLE] sesame seed Drug Allergy 08-11-20 [facility] (20 sources) extract; 05 Clinic Translations: [SESAME SEED] Sulfamethoxazole / Drug Allergy 05-02-20 Rash, Hives, [facility] (20 sources) Trimethoprim; 07 Other: See Work Phon e: Translations: Comments [SULFAMETHOXAZOLE-T RIMETHOPRIM] Sulfonamides Drug Allergy 03-02-20 Rash, Hives [facility] (20 sources) (Antibiotic); 19 Work Phon e: Translations: [SULFA (SULFONAMIDE ANTIBIOTICS)] tree nut, Drug Allergy 03-02-20 Other: See [facility] in (20 sources) unspecified; 19 Comments Work Phone : Translations: [TREE NUT] Trimethoprim; Drug Allergy 03-02-20 Rash, Hives [facility] (20 sources) Translations: 19 Work Phon [...] 75 mg tablet daily Indications: Atherosclerosis of nikolai coronary artery of nativ e heart without [...] daily. memantine hydrochloride 10 mg oral tablet X-ozbfgm-W-asparta te Start: 01-16-2022 take 1 memantine (16 [...] eyes one day prior to eye injection. [place]-3 Fatty Acids (FISH OIL) 500 mg cap Start: 08-22 take 1 capsule by [place]-3 Fatty Acids (20 sources) mouth once daily [...] Ep isodic/Chronic Acquired foot deformities Hammer toe; aG [place] (7 sources) Translations: [Other hammer toe(s) [...] atherosclerosis; 03-17-2017 Translations: [Atherosclerotic heart disease of nikolai coronary artery without angina pectoris] Delirium, dementia, [...] Episodic (20 sources) medication; 05-07-2017 Translations: [Other manager long term care (current) drug therapy] Other nutritional; endocrine; and metabolic disorders Hyperurice jorge; Onset: 02-05-2018 Episodic (20 sources) Translations: 09-29-2006 [Hyperuricemia without signs of inflammatory arthritis and tophaceous disease] Results Test Name Value Interpretation Reference Range Facility CNOV on 01-06-2023 CNOV Office Visit (PODIWS) [facility] NAVID CORTES ([id number]) [address] [facility] Time Provider Department 01/06/23 2:30 PM [...] Amputation of little toe, right, subsequent encounter ([facility]) (I73.9) PAD (peripheral artery disease) ([facility]) (M20.41, M20.42) Hammer toes of both feet Plan: Patient was seen and evaluated. Callus very minimal on exam. Continue with wider shoes as these appear to be helping. Callus reduced with dremmel Toenails 1-5 left and 1-3 right debrided in sree th and thickness. Q7 modifier F/u in 2 months Aracelis Aceves DPM Referring Provider: ARACELIS ACEVES [[id number]] Allergies As of Date: 01/06/2023 Noted Allergy [...] Amputation of little toe, right, subsequent encounter ([facility]) [S98.131D] PAD (peripheral artery disease) ([facility]) [I73.9] Hammer toes of both feet [M20.41, [...] d ay prior to eye injection. - [place]-3 Fatty Acids (FISH OIL) 500 mg cap [...] (UCWSTR) [facility] NAV[facility] CORT[facility] ([id number]) 1935 [facility] Date Time Provider Department 11/11/22 3:15 PM GENI NEGRON [facility] During your visit today, we recorded the following inf ormation about you: Temperature Pulse Respiration Blood pressure 96.9 degrees 60/minute 16/minute 142/80 Weight 85.7 kg Geni Negron APRN.CNP 11/11/2022 3:16 PM Signed Subjective The history is provided by the patient a nd the spouse. No foreign language interpreter was used. 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 ([facility]) 04/04/2021 Esophageal reflux Hemorrhage of rectum and anus History of prediabetes 08/05/2016 Hyperlipidemia Hypertensive kidney disease with stage 3a chronic kidn ey disease ([facility]) 11/04/2022 Hypertrophy of prostate with urinary obs truction and other lower urinary tract symptoms (LUTS) 03/19/2006 HYPERURICEMIA 09/29/2006 Idiopathic peripheral neuropathy 03/28/2010 Internal hemorrhoids without mention of complication Interstitial lung disease ([facility]) 05/18/2017 Mixed hyperlipidemia Hyperlipidemia Moderate aortic valve stenosis 11/06/2022 Occlusion and stenosis of carotid artery without menti on of cerebral infarction 07/08/2010 OM (osteomyelitis) ([facility]) 04/03/2010 Osteomyelitis of fifth toe of right foot ([facility]) 020 PAC (premature atrial contraction) 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 cardiac pacemaker 09/22/2019 [employer] dual-chamber pacemaker system; indic ation: symptomatic bradycardia due to sinus nod e dysfunction; system will be MRI conditional after 6 weeks post implant Psoriasis and similar disorders arthritis PSORIATIC ARTHRITIS 09/29/2006 PVC (premature ventricular contraction) Sinus node dysfunction ([facility]) 09/22/2019 Unspecified essential hypertension Essential hypertension Unspecified hypothyroidism Urethral stricture 04/04/2012 Urinary retention 03/16/2013 Vasculitis ([facility]) 04/01/2017 I have confirmed and edited as necessary, the [facility] Review of Systems Constitutional: Negative for chills [...] signs and symptoms that would indicate the ak ed for higher level of care were discussed in detail warranting prompt ER jt guardado. Geni Negron APRN.CUSTOMER OPERATIONS MANAGER Allergies As of Date: 11/11/2022 Noted Allergy [...] Date Reviewed: 11/11/2022 Reviewed by: Geni Negron APRN.CUSTOMER OPERATIONS MANAGER - Fully Assessed Reason for Visit: Finger (more content not included)... CNOV Office Visit (PODIWS) [facility] NAV[facility] St[facility] ([id number]) [address] [facility] Time Provider Department 11/11/22 1:45 PM [...] Amputation of little toe, right, subsequent encounter ([facility]) (I73.9) PAD (peripheral artery disease) ([facility]) (M20.41, M20.42) Hammer toes of both feet [...] foot. Recommend he return to his prior [facility] as these shoes were wider and led to less callus formation. F/u in 5-6 weeks MIGUEL Plata DPM Amelia Smith, LPN 11/11/2022 2:[address] Aceves, Navid was provided with universal s leeve, and instructed/educated in its application, wear, and care . All questions were answered, and patient was able to demonstrate [facility] ce with the necessary skills to utilize [...] Amputation of little toe, right, subsequent encounter ([facility]) [S98.131D] PAD (peripheral artery disease) ([facility]) [I73.9] Hammer toes of both feet [M20.41, [...] CNOV Office Visit (INTMWS) [facility] BRANDANCECILIANAVID ([id number]) 1935 M [facility] Date Time Provider Department 11/06/22 9:00 AM [...] all Concerns with sexual function:Not at all [place] anxious, stressed, angry, irritable , lonely, isolated, [...] (Internal Medi cine) Augusto Tran as Specialty Motor Vehicle Examiner (Cardiology) Kenan Mari as Specialty Motor Vehicle Examiner (Pulmonary Disease) Lorne Andrew Jr., DO as Specialty Motor Vehicle Examiner (Op hthalmology) Aracelis Aceves as Specialty Motor Vehicle Examiner (Podiatry) Claude He MD/Diego Wu MD as Sp ecialty Motor Vehicle Examiner (Cerebrovascular) Dr. Julia Barron, rheumatology. Medical/Family history [...] AM Signed This note was created using BasicGov Systemsriter. Subjective Navid Cortes is a 86 year [...] Interstitial Lung Disease (Hcc) Bradycardia Atherosclerosis of Kashia Coronary Artery of Kashia He art Without Angina Pectoris Gout Presence [...] 11-02-2022 Cholesterol [Mass/Vol] 191 mg/dL Normal <200 [facility] Comment on above: Order Comment: Specimen Type : BLOOD SPECIMENOrdering Facility: [facility] Address: [address] [place] [address] Result Comment: <200 mg/dL, Desirable 200-239 mg/dL, Borderline hi gh >239 mg/dL, High Performed By: #### 20937-3, 3016-3 ####[facility] LABCLIA [id number] ARVIND Lai [facility] [address] [address] [place] Cholesterol in HDL [Mass/Vol] 55 mg/dL Normal >39 [facility] Comment on above: Order Comment: Specimen Type : BLOOD SPECIMENOrdering Facility: [facility] Address: [address] [place] [address] Result Comment: 40-59 mg/dL, Acceptable >59 mg/dL, High: Negative ri sk factor for coronary heart disease <40 mg/dL, Low: Positive ris k factor for coronary heart disease Performed By: #### 48528-9, 6-3 ####[facility] LABCLIA [id number] [address] OF [facility] Cholesterol in LDL [Mass/Vol] 113 mg/dL High <100 [facility] Comment on above: Order Comment: Specimen Type : BLOOD SPECIMENOrdering Facility: [facility] Address: [address] [place] [address] Result Comment: <100 mg/dL, Optimal 100-129 mg/dL, Near optimal/ above optimal 130-159 mg/dL, Borderline hi gh 160-189 mg/dL, High >189 mg/dL, Very high Secondary prevention optimal LDL Cholesterol levels are recommended to be < 70 mg/dL Performed By: #### 78292-2, 3015-3 ####[facility] LABCLIA [id number] [address] Cholesterol in LDL/Cholesterol in 2.05 {ratio} Normal <2.54 [facility] HDL [Mass ratio] Comment on above: Order Comment: Specimen Type : BLOOD SPECIMENOrdering Facility: [facility] Address: [address] [place] [address] Result Comment: Reference: 1. National Cholesterol Educ ation Program ATP III Guideline At-A-Glance Quick Desk Reference: National Heart, Lung, and Blood [place]. National Institutes of Health. 2001: NIH Publication No. 01-3305. 2. An International Atherosc lerosis Society position paper: global recommendations for the management of dyslipidemia: executive summary, Atherosclerosis. 2014: 232(2):410-413. Performed By: #### 59967-2, 6-3 ####[facility] LABCLIA [id number] [place] [address] [place] Cholesterol in VLDL [Mass/Vol] 23 mg/dL Normal <30 [facility] Comment on above: Order Comment: Specimen Type : BLOOD SPECIMENOrdering Facility: [facility] Address: [address] [address] Performed By: #### 62008-2, 3016-3 ####[facility] LABCLIA [id number] [place] [address] [place] Cholesterol non HDL [Mass/Vol] 136 mg/dL High <130 [facility] Comment on above: Order Comment: Specimen Type : BLOOD SPECIMENOrdering Facility: [facility] Address: [address] [address] Result Comment: <130 mg/dL, Optimal 130-159 mg/dL, Near optimal/ above optimal 160-189 mg/dL, Borderline hi gh 190-219 mg/dL, High >219 mg/dL, Very high Secondary prevention optimal non HDL Cholesterol levels are recommended to be <100 mg/dL Performed By: #### 93964-8, 3015-3 ####[facility] LABCLIA [id number] [place] [address] [place] Cholesterol.total/Cholesterol in HDL 3.47 {ratio} Normal <5.1 0 [facility] [Mass ratio] [facility] Comment on above: Order Comment: Specimen Type : BLOOD SPECIMENOrdering Facility: [facility] Address: [address] Performed By: #### 13042-6, 3015-3 ####[facility] LABCLIA [id number] [place] [address] [place] FASTING TIME 15 hrs Normal [facility] Comment on above: Order Comment: Specimen Type : BLOOD SPECIMENOrdering Facility: [facility] Address: [address] Performed By: #### 50495-6, 3015-3 ####[facility] LABCLIA [id number] [place] [address] [place] Triglyceride [Mass/Vol] 116 mg/dL Normal <150 [facility] Comment on above: Order Comment: Specimen Type : BLOOD SPECIMENOrdering Facility: [facility] Address: [place] [id number] Result Comment: <150 mg/dL, Normal 150-199 mg/dL, Borderline hi gh 200-499 mg/dL, High >499 mg/dL, Very high Performed By: #### 87713-6, 3016-3 ####[facility] LABCLIA [id number] [place] [address] [place] TSH SerPl-aCnc on 11-02-2022 TSH Qn 2.870 m[IU]/L Normal 0.270-4.200 [facility] Comment on above: Order Comment: Specimen Type : BLOOD SPECIMENOrdering Facility: [facility] Address: [address] [place], [place] [address] Performed By: #### 72649-1, 3016-3 ####[facility] LABIA [id number] [address] [place] CNPN on 09-25-2022 CNPN Telephone (INTMWS) [facility] NAVID Starr ([id number]) 1935 M [facility] Date Time Provider Department 09/25/22 JASON SNIDER [...] T his has been faxed back to [place] [facility] [employer]. Allergies As of Date: 09/25/2022 Noted Allergy [...] d ay prior to eye injection. - [place]-3 Fatty Acids (FISH OIL) 500 mg cap [...] (INTMWS) [facility] NAV[facility] CORT[facility] ([id number]) 1935 M [place] Date Time Provider Department 09/17/22 6:00 PM JASON SNIDER During your visit today, we recorded the following inf ormation about you: Temperature Pulse Respiration Blood pressure 97.5 degrees 60/minute 16/minute 134/84 Weight 80.7 kg Jason Snider MD 09/18/2022 7:32 AM Signed This note was created using [employer] Lab[employer]. Subjective Navid Cortes is a 86 year [...] of the Alzheimer's type with late onset [facility] behavioral disturbance (HCC) - ICD9: 331.0, 294.10, [...] peripheral neuropathy [G60.9] Order(s):ADVANCE CARE PLAN DISCUSSION [[id number]] Order #: [id number]: 1 lisinopril (ZESTRIL, PRINIVIL) 10 mg tabletTake [...] d ay prior to eye injection. - [place]-3 Fatty Acids (FISH OIL) 500 mg cap [...] Visit (PODIWS) [facility] NAV[facility] St[facility] ([id number]) 1935 M [place] Date Time Provider Department 09/16/22 1:45 PM [...] (H) 4.3 - 5.6 % Final Comment: [place] Diabetes Association guidelines indicate that patients with [...] CAD (coronary artery disease) two-vessel CABG 1996 ([facility]); PCI/stent LCX 2010 Chronic kidney disease, stage 3 (moderate) 08/11/2016 CKD (chronic kidney disease) stage 3, GFR 30-59 ml/min ([facility]) 08/11/2016 Closed fracture of metatarsal bone(s) 05/14/2010 Cognitive disorder 08/12/2015 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 ([facility]) 04/04/2021 Esophageal reflux Hemorrhage of rectum and anus History of prediabetes 08/05/2016 Hyperlipidemia Hypertrophy of prostate with urinary obs truction and other lower urinary tract symptoms (LUTS) 03/19/2006 HYPERURICEMIA 09/29/2006 Idiopathic peripheral neuropathy 03/28/2010 Internal hemorrhoids without mention of complication Interstitial lung disease ([facility]) 05/18/2017 Mixed hyperlipidemia Hyperlipidemia Occlusion and stenosis of carotid artery without menti on of cerebral infarction 07/08/2010 OM (osteomyelitis) ([facility]) 04/03/2010 Osteomyelitis of fifth toe of right foot ([facility]) 020 PAC (premature atrial contraction) 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 cardiac pacemaker 09/22/2019 [employer] dual-chamber pacemaker system; indic ation: symptomatic bradycardia due to sinus nod e dysfunction; system will be MRI conditional after 6 weeks post implant Psoriasis and similar disorders arthritis PSORIATIC ARTHRITIS 09/29/2006 PVC (premature ventricular contraction) Sinus node dysfunction ([facility]) 09/22/2019 Unspecified essential hypertension Essential hypertension Unspecified hypothyroidism Urethral stricture 04/04/2012 Urinary retention 03/16/2013 Vasculitis ([facility]) 04/01/2017 Current Outpatient Medications Medication Sig levothyroxine [...] eyes one day prior to eye injection. [place]-3 Fatty Acids (FISH OIL) 500 mg cap [...] Visit (OTNOCA) Normal [facility] NAV[facility] CORTES ([id number]) 1935 [facility] Date Time Provider Department 08/14/22 9:45 AM ALEIDA THOMAS Date Time Provider Department Center 08/14/2022 9:45 AM [id number] THOMAS [facility] Reason for Visit: OT [...] d ay prior to eye injection. - [place]-3 Fatty Acids (FISH OIL) 500 mg cap [...] CNOV Office Visit (PODIWS) [facility] NAVID CORTES ([id number]) 1935 M [place] Date Time Provider Department 08/05/22 2:15 PM [...] (H) 4.3 - 5.6 % Final Comment: [place] Diabetes Association guidelines indicate that patients with [...] CAD (coronary artery disease) two-vessel CABG 1996 ([facility]); PCI/stent LCX 2010 Chronic kidney disease, stage 3 (moderate) 08/11/2016 CKD (chronic kidney disease) stage 3, GFR 30-59 ml/min ([facility]) 08/11/2016 Closed fracture of metatarsal bone(s) 05/14/2010 Cognitive disorder 08/12/2015 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 ([facility]) 04/04/2021 Esophageal reflux Hemorrhage of rectum and anus History of prediabetes 08/05/2016 Hyperlipidemia Hypertrophy of prostate with urinary obs truction and other lower urinary tract symptoms (LUTS) 03/19/2006 HYPERURICEMIA 09/29/2006 Idiopathic peripheral neuropathy 03/28/2010 Internal hemorrhoids without mention of complication Interstitial lung disease ([facility]) 05/18/2017 Mixed hyperlipidemia Hyperlipidemia Occlusion and stenosis of carotid artery without menti on of cerebral infarction 07/08/2010 OM (osteomyelitis) ([facility]) 04/03/2010 Osteomyelitis of fifth toe of right foot ([facility]) 020 PAC (premature atrial contraction) 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 cardiac pacemaker 09/22/2019 [employer] dual-chamber pacemaker system; indic ation: symptomatic bradycardia due to sinus nod e dysfunction; system will be MRI conditional after 6 weeks post implant Psoriasis and similar disorders arthritis PSORIATIC ARTHRITIS 09/29/2006 PVC (premature ventricular contraction) Sinus node dysfunction ([facility]) 09/22/2019 Unspecified essential hypertension Essential hypertension Unspecified hypothyroidism Urethral stricture 04/04/2012 Urinary retention 03/16/2013 Vasculitis ([facility]) 04/01/2017 Current Outpatient Medications Medication Sig levothyroxine [...] eyes one day prior to eye injection. [place]-3 Fatty Acids (FISH OIL) 500 mg cap [...] (PODIWS) [facility] NAV[facility] CORTES ([id number]) 1935 M [place] Date Time Provider Department 06/24/22 1:30 PM [...] (H) 4.3 - 5.6 % Final Comment: [place] Diabetes Association guidelines indicate that patients with [...] CAD (coronary artery disease) two-vessel CABG 1996 ([facility]); PCI/stent LCX 2010 - Chronic kidney disease, stage 3 (moderate) 08/11/2016 - CKD (chronic kidney disease) stage 3, GFR 30-59 ml/m in ([facility]) 08/11/2016 - Closed fracture of metatarsal bone(s) 05/14/2010 - Cognitive disorder 08/12/2015 - 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 ([facility]) 04/04/2021 - Esophageal reflux - Hemorrhage of rectum and anus - History of prediabetes 08/05/2016 - Hyperlipidemia - Hypertrophy of prostate with urinary obstruction and other lower urinary tract symptoms (LUTS) 03/19/2006 - HYPERURICEMIA 09/29/2006 - Idiopathic peripheral neuropathy 03/28/2010 - Internal hemorrhoids without mention of complication - Interstitial lung disease ([facility]) 05/18/2017 - Mixed hyperlipidemia Hyperlipidemia - Occlusion and stenosis of carotid artery without men tion of cerebral infarction 07/08/2010 - OM (osteomyelitis) ([facility]) 04/03/2010 - Osteomyelitis of fifth toe of right foot ([facility]) 01/22 - PAC (premature atrial contraction) - 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 - [place]-3 Fatty Acids (FISH OIL) 500 mg cap [...] (INTMWS) [facility] NAVID CORT[facility] ([id number]) 1935 M [place] Date Time Provider Department 05/29/22 4:40 PM JASON SNIDER INTMWS During your visit today, we recorded the following inf ormation about you: Pulse Blood pressure Weight 60/minute 136/80 79.4 kg Jason Snider MD 06/04/2022 12:19 AM Signed This note was created using [employer]. Subjective Patient presents with: Follow Up Navid Cortes is a 86 year old male was here with his daughter for an earlier follow up. See My Chart message. Concerns were fatigue , digestive problems including fecal soiling. History is limited by lucia geller as patient indicated concerns were not significant. He still lived alone [facility]. He still drove short distances and st [...] Interstitial Lung Disease (Hcc) Bradycardia Atherosclerosis of Kashia Coronary Artery of Kashia He art Without Angina Pectoris Gout Presence [...] one day prior to eye injection. - [place]-3 Fatty Acids (FISH OIL) 500 mg cap [...] Erythrocyte distribution width 13.4 % Normal 11.5-15.0 [facility] (RBC) [Ratio] Comment on above: Order Comment: Specimen Type : BLOOD SPECIMENOrdering Facility: [facility] Address: [address] [place] [address] Performed By: #### 07515-7 # ###[facility] [id number] [place] [address] [place] [id number] [place] Hematocrit (Bld) [Volume fraction] 40.2 % Normal 39.0-5 1.0 [facility] Comment on above: Order Comment: Specimen Type : BLOOD SPECIMENOrdering Facility: [facility] Address: [address] [place] [address] Performed By: #### 39710-5 # ###[facility] [id number] [place] [address] [place] Hemoglobin (Bld) [Mass/Vol] 13.1 g/dL Normal 13.0-17.0 [facility] Comment on above: Order Comment: Specimen Type : BLOOD SPECIMENOrdering Facility: [facility] Address: [address] [place] [address] Performed By: #### 64758-6 # ###[facility] [id number] [place] [address] [place] MCH (RBC) [Entitic mass] 30.3 pg Normal 26.0-34.0 [facility] Comment on above: Order Comment: Specimen Type : BLOOD SPECIMENOrdering Facility: [facility] Address: [address] [place] [address] Performed By: #### 46697-5 # ###[facility] [id number] [place] [address] [place] MCHC (RBC) [Mass/Vol] 32.6 g/dL Normal 30.5-36.0 [facility] Comment on above: Order Comment: Specimen Type : BLOOD SPECIMENOrdering Facility: [facility] Address: [address] [place] [address] Performed By: #### 77276-0 # ###[facility] [id number] [place] [address] [place] MCV (RBC) [Entitic vol] 92.8 fL Normal 80.0-100.0 [facility] Comment on above: Order Comment: Specimen Type : BLOOD SPECIMENOrdering Facility: [facility] Address: [address] [place] [address] Performed By: #### 94859-0 # ###[facility] RUDDYWDOMENICALIA [id number] [place] [address] [place] Nucleated RBC (Bld) [#/Vol] 10*3/uL Normal <0.01 [facility] Comment on above: Order Comment: Specimen Type : BLOOD SPECIMENOrdering Facility: [facility] Address: [address] [place] [address] Performed By: #### 23383-5 # ###[facility] RONALDEsperanzaMORA [id number] [place] [address] [place] Platelet mean volume (Bld) [Entitic 9.7 fL Normal 9.0-1 2.7 [facility] vol] Comment on above: Order Comment: Specimen Type : BLOOD SPECIMENOrdering Facility: [facility] Address: [address] [place], [place] [address] Performed By: #### 36571-3 # ###[facility] [id number] [place] [address] [place] Platelets (Bld) [#/Vol] 167 10*3/uL Normal 150-400 [facility] Comment on above: Order Comment: Specimen Type : BLOOD SPECIMENOrdering Facility: [facility] Address: [address] [place], [place] [address] Performed By: #### 20815-3 # ###[facility] H[facility]ITALDOMENICALIA [id number] [place] [address] [place] RBC (Bld) [#/Vol] 4.33 10*6/uL Normal 4.20-6.00 [facility] Comment on above: Order Comment: Specimen Type : BLOOD SPECIMENOrdering Facility: [facility] Address: [address] [place] [address] Performed By: #### 62056-0 # ###[facility] RONALDFREDDYA [id number] [place] [address] [place] WBC (Bld) [#/Vol] 6.02 10*3/uL Normal 3.70-11.00 [facility] Comment on above: Order Comment: Specimen Type : BLOOD SPECIMENOrdering Facility: [facility] Address: [address] [place] [address] Performed By: #### 81859-2 # ###[facility] RONALDFREDDYA [id number] [place] [address] [place] Comprehensive metabolic 2000 panel on 05-18-2022 Albumin [Mass/Vol] 3.8 g/dL Low 3.9-4.9 [facility] Comment on above: Order Comment: Specimen Type : BLOOD SPECIMENOrdering Facility: [facility] Address: [address] [place] [address] Performed By: #### 76032-4 # ###[facility] RONALDWINGDALEMORA [id number] [place] [address] [place] ALP [Catalytic activity/Vol] 93 U/L Normal 38-113 [facility] Comment on above: Order Comment: Specimen Type : BLOOD SPECIMENOrdering Facility: [facility] Address: [address] [place] [address] Performed By: #### 51813-1 # ###[facility] RONALDMAUREENA [id number] [place] [address] [place] ALT [Catalytic activity/Vol] 14 U/L Normal 10-54 [facility] Comment on above: Order Comment: Specimen Type : BLOOD SPECIMENOrdering Facility: [facility] Address: [address] [place] [address] Performed By: #### 68431-7 # ###[facility] YARITZA MILLTOWNCLIA [id number] [address] [place] [address] [place] Anion gap [Moles/Vol] 8 mmol/L Low 9-18 [facility] Comment on above: Order Comment: Specimen Type : BLOOD SPECIMENOrdering Facility: [facility] Address: [address] [place] [address] Performed By: #### 17264-3 # ###[facility] MILLTOWNCLIA [id number] [address] [place] [address] [place] AST [Catalytic activity/Vol] 21 U/L Normal 14-40 [facility] Comment on above: Order Comment: Specimen Type : BLOOD SPECIMENOrdering Facility: [facility] Address: [address] [place] [address] Performed By: #### 53323-5 # ###[facility] MILLTOWNCLIA [id number] [place] [address] [place] Bilirubin [Mass/Vol] 0.5 mg/dL Normal 0.2-1.3 [facility] Comment on above: Order Comment: Specimen Type : BLOOD SPECIMENOrdering Facility: [facility] Address: [address] [place] [address] Performed By: #### 45979-8 # ###[facility] MILLTOWNCLIA [id number] [address] [place] [address] [place] Calcium [Mass/Vol] 9.4 mg/dL Normal 8.5-10.2 [facility] Comment on above: Order Comment: Specimen Type : BLOOD SPECIMENOrdering Facility: [facility] Address: [address] [place] [address] Performed By: #### 56029-3 # ###[facility] MILLTOWNCLIA [id number] [place] [place] [address] [place] Chloride [Moles/Vol] 102 mmol/L Normal 97-105 [facility] Comment on above: Order Comment: Specimen Type : BLOOD SPECIMENOrdering Facility: [facility] Address: [address] [place] [address] Performed By: #### 01049-0 # ###[facility] MILLWNCLIA [id number] [place] [address] [place] CO2 [Moles/Vol] 26 mmol/L Normal 22-30 [facility] Comment on above: Order Comment: Specimen Type : BLOOD SPECIMENOrdering Facility: [facility] Address: [address] [place] [address] Performed By: #### 31778-0 # ###[facility] MILLWWILIA [id number] [place] [address] [place] Creatinine [Mass/Vol] 1.40 mg/dL High 0.73-1.22 [facility] Comment on above: Order Comment: Specimen Type : BLOOD SPECIMENOrdering Facility: [facility] Address: [address] [place] [address] Performed By: #### 69013-8 # ###[facility] LIMALIA [id number] [place] [address] [place] ESTIMATED GLOMERULAR 49 mL/min/1.73m??? Low >=60 [facility] FILTRATION RATE Comment on above: Order Comment: Specimen Type : BLOOD SPECIMENOrdering Facility: [facility] Address: [address] [place] [address] Result Comment: Estimated Gl omerular Filtration Rate [...] accurately reflect actual GFR. Performed By: #### 00935-1 # ###[facility] YARITZA CARDENASTOWNCLIA [id number] [place] [address] [place] Glucose [Mass/Vol] 103 mg/dL High 74-99 [facility] Comment on above: Order Comment: Specimen Type : BLOOD SPECIMENOrdering Facility: [facility] Address: [address] [place] [address] Result Comment: The [place] Diabetes Association (ADA) provides guidance for cutoff [...] for diagnosis of diabetes. Reference: Standards of [facility] Care in Diabetes 2016, [place] Diabetes Association. Diabetes Care. 2016.39(Suppl 1). Performed By: #### 25308-3 # ###[facility] RONALDZACWDOMENICALIA [id number] [place] [address] [place] Potassium [Moles/Vol] 4.6 mmol/L Normal 3.7-5.1 [facility] Comment on above: Order Comment: Specimen Type : BLOOD SPECIMENOrdering Facility: [facility] Address: [address] [place] [address] Performed By: #### 74851-0 # ###[facility] MILLWNCLIA [id number] [place] [address] [place] Protein [Mass/Vol] 6.1 g/dL Low 6.3-8.0 [facility] Comment on above: Order Comment: Specimen Type : BLOOD SPECIMENOrdering Facility: [facility] Address: [address] [place] [address] Performed By: #### 96754-2 # ###[facility] MILLWNCLIA [id number] [place] [address] [place] Sodium [Moles/Vol] 136 mmol/L Normal 136-144 [facility] Comment on above: Order Comment: Specimen Type : BLOOD SPECIMENOrdering Facility: [facility] Address: [address] [place] [address] Performed By: #### 80773-3 # ###[facility] MILLTOWNCLIA [id number] [place] [address] [place] Urea nitrogen [Mass/Vol] 26 mg/dL High 9-24 [facility] Comment on above: Order Comment: Specimen Type : BLOOD SPECIMENOrdering Facility: [facility] Address: [address] [place] [address] Performed By: #### 25037-3 # ###[facility] [id number] [place] [address] [place] TSH SerPl-aCnc on 05-18-2022 TSH Qn 2.130 m[IU]/L Normal 0.270-4.200 [facility] Comment on above: Order Comment: Specimen Type : BLOOD SPECIMENOrdering Facility: [facility] Address: [address] [place] [address] Performed By: #### 3016-3 ## ##[facility] LABCLIA [id number] [facility] [id number] [address] [place] Vit B12 SerPl-mCnc on 05-18-2022 Cobalamin (Vitamin B12) 428 pg/mL Normal 232-1,245 [facility] [Mass/Vol] Comment on above: Order Comment: Specimen Type : BLOOD SPECIMENOrdering Facility: [facility] Address: [address] [place] [address] Performed By: #### 2132-9 ## ##[facility] LABCLIA [id number] [place] [id number] [place] [facility] CNOV on 05-13-2022 CNOV Office Visit (PODIWS) [facility] SOPHIANAVID A ([id number]) 1935 [address] [place] Date Time Provider Department 05/13/22 2:00 PM [...] i n the home?: No No pain. Aracelis Aceves DPM 05/18/2022 7:52 AM Signed FOLLOW UP PODIATRIC OFFICE VISIT Chief Complaint: This 86 year old who presents for fol low up:callus of both feet. Patient presents to clinic for follow-up callus. He is using hammertoe pad and wider new balance shoes . He has no issues Laundry Helper states he did bump his toenail and it is rosemarie ck. PAIN EVALUATION No data found in the last 1 encounters. 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 ([facility]) 04/04/2021 - Esophageal reflux - Hemorrhage of rectum and anus - History of prediabetes 08/05/2016 - Hyperlipidemia - Hypertrophy of prostate with urinary obstruction and other lower urinary tract symptoms (LUTS) 03/19/2006 - HYPERURICEMIA 09/29/2006 - Idiopathic peripheral neuropathy 03/28/2010 - Internal hemorrhoids without mention of complication - Interstitial lung disease ([facility]) 05/18/2017 - Mixed hyperlipidemia Hyperlipidemia - Occlusion and stenosis of carotid artery without men tion of cerebral infarction 07/08/2010 - OM (osteomyelitis) ([facility]) 04/03/2010 - Osteomyelitis of fifth toe of right foot ([facility]) 01/22 - PAC (premature atrial contraction) - 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 - Presence of cardiac pacemaker 09/22/2019 [employer] dual-chamber pacemaker system; indic ation: symptomatic bradycardia due to sinus nod e dysfunction; system will be MRI conditional after 6 weeks post implant - Psoriasis and similar disorders arthritis - PSORIATIC ARTHRITIS 09/29/2006 - PVC (premature ventricular contraction) - Sinus node dysfunction ([facility]) 09/22/2019 - Unspecified essential hypertension Essential hypertension - Unspecified hypothyroidism - Urethral stricture 04/04/2012 - Urinary retention 03/16/2013 - Vasculitis ([facility]) 04/01/2017 Current Outpatient Medications Medication Sig - [...] one day prior to eye injection. - [place]-3 Fatty Acids (FISH OIL) 500 mg cap Take 1 capsule by mouth once daily. - beta-carotene(a) w-c AND e /zn/cu(OCUVITE PRESERVISION TAB) Take one(1) tablet daily. - CLARITIN 10 MG ORAL TAB Take one(1) tablet daily. - ASPIRIN 81MG TABLET Take one (1) tablet daily . - MULTIVITAMIN TABLET Take one(1) tablet daily. - donepezil (ARICEPT) 10 mg tablet Take 1 tablet by co ut daily at bedtime. No current facility-administered medications for this visit. ALLERGIES Allergen Reactio (more content not included)... CNOV on 03-31-2022 CNOV Office Visit (PODIWS) [facility] NAVID Starr ([id number]) 1935 M [place] Date Time Provider Department 03/31/22 2:15 PM [...] (H) 4.3 - 5.6 % Final Comment: [place] Diabetes Association guidelines indicate that patients with [...] CAD (coronary artery disease) two-vessel CABG 1996 ([facility]); PCI/stent LCX 2010 - Chronic kidney [...] mention of complication - Interstitial lung disease ([facility]) 05/18/2017 - Mixed hyperlipidemia Hyperlipidemia - Occlusion and stenosis of carotid artery without men tion of cerebral infarction 07/08/2010 - OM (osteomyelitis) ([facility]) 04/03/2010 - Osteomyelitis of fifth toe of right foot ([facility]) 01/22 - PAC (premature atrial contraction) - 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 - Presence of cardiac pacemaker 09/22/2019 [place] [employer] dual-chamber pacemaker system; indic ation: symptomatic bradycardia due to sinus nod e dysfunction; system will be MRI conditional after 6 weeks post implant - Psoriasis and similar disorders arthritis - PSORIATIC ARTHRITIS 09/29/2006 - PVC (premature ventricular contraction) - Sinus node dysfunction ([facility]) 09/22/2019 - Unspecified essential hypertension Essential hypertension - Unspecified hypothyroidism - Urethral stricture 04/04/2012 - Urinary retention 03/16/2013 - Vasculitis ([facility]) 04/01/2017 Current Outpatient Medications Medication Sig - [...] one day prior to eye injection. - [place]-3 Fatty Acids (FISH OIL) 500 mg cap Take 1 capsule by mouth once daily. - beta-carotene(a) w-c AND e /zn/cu(OCUVITE PRESERVISION TAB) T (more content not included)... CNOV on 02-17-2022 CNOV Office Visit (PODIWS) [facility] NAVID CORTES ([id number]) 1935 M [place] Date Time Provider Department 02/17/22 2:15 PM ARACELIS ACEVES PODROWAN During your visit today, we recorded the following inf ormation about you: Aleida Moser MA 02/18/2022 12:24 PM Signed Patient presents with: Right Foot - Established Patient, hammer toes Aracelis Aceves DPM 02/17/2022 2:51 PM Signed Continue [...] (H) 4.3 - 5.6 % Final Comment: [place] Diabetes Association guidelines indicate that patients with [...] CAD (coronary artery disease) two-vessel CABG 1996 ([facility]); PCI/stent LCX 2010 - Chronic kidney disease, stage 3 (moderate) 08/11/2016 - CKD (chronic kidney disease) stage 3, GFR 30-59 ml/m in ([facility]) 08/11/2016 - Closed fracture of metatarsal bone(s) 05/14/2010 - Cognitive disorder 08/12/2015 - 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 ([facility]) 04/04/2021 - Esophageal reflux - Hemorrhage of rectum and anus - History of prediabetes 08/05/2016 - Hyperlipidemia - Hypertrophy of prostate with urinary obstruction and other lower urinary tract symptoms (LUTS) 03/19/2006 - HYPERURICEMIA 09/29/2006 - Idiopathic peripheral neuropathy 03/28/2010 - Internal hemorrhoids without mention of complication - Interstitial lung disease ([facility]) 05/18/2017 - Mixed hyperlipidemia Hyperlipidemia - Occlusion and stenosis of carotid artery without men tion of cerebral infarction 07/08/2010 - OM (osteomyelitis) ([facility]) 04/03/2010 - Osteomyelitis of fifth toe of right foot ([facility]) 01/22 - PAC (premature atrial contraction) - 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 - Presence of cardiac pacemaker 09/22/2019 [place] [employer] dual-chamber pacemaker system; indic ation: symptomatic bradycardia due to sinus nod e dysfunction; system will be MRI conditional after 6 weeks post implant - Psoriasis and similar disorders arthritis - PSORIATIC ARTHRITIS 09/29/2006 - PVC (premature ventricular contraction) - Sinus node dysfunction ([facility]) 09/22/2019 - Unspecified essential hypertension Essential hypertension - Unspecified hypothyroidism - Urethral stricture 04/04/2012 - Urinary retention 03/16/2013 - Vasculitis ([facility]) 04/01/2017 Current Outpatient Medications Medication Sig - [...] one day prior to eye injection. - [place]-3 Fatty Acids (FISH OIL) 500 mg cap [...] for this v (more content not included)... [facility] NAVID CORTES ([id number]) 1935 [place] Date Time Provider Department 02/17/22 JASON SNIDER During your visit today, we recorded the following inf ormation about you: Suzy Morales LABOR DELIVERY SPECIALIST 02/17/2022 1:25 PM Signed rec'd fax from [employer] requested MR. Brown has bee n sent [...] d ay prior to eye injection. - [place]-3 Fatty Acids (FISH OIL) 500 mg cap [...] (INTMWS) [facility] NAVID CORTES ([id number]) 1935 M [place] Date Time Provider Department 01/16/22 4:40 PM JASON SNIDER INTMWS During your visit today, we recorded the following inf ormation about you: Blood pressure 140/66 Jason Snider MD 01/18/2022 2:21 PM Signed This note was created using Centice. Subjective Navid Cortes is a 86 year old male her e with his daughter. He slipped on ice recently with no major injury. 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 Daughter reported he still passed his vision exam for driving and patient still felt safe driving to familiar places. Home health aid hours have increased, and he had some home care 6 days per week. This improved medication adherence and nutrition al quality. [facility] not available, as [...] Interstitial Lung Disease (Hcc) Bradycardia Atherosclerosis of [place] Coronary Artery of [place] He art Without Angina Pectoris Gout Presence [...] one day prior to eye injection. - [place]-3 Fatty Acids (FISH OIL) 500 mg cap [...] Anion gap [Moles/Vol] 7 mmol/L Low -18 [facility] Calcium [Mass/Vol] 9.4 mg/dL Normal 8.5-10.2 [facility] Chloride [Moles/Vol] 104 mmol/L Normal 97-105 [facility] CO2 [Moles/Vol] 31 mmol/L High 22-30 [facility] [place] Creatinine [Mass/Vol] 1.27 mg/dL High 0.73-1.22 [facility] eGFR- Amer. >60 Normal [facility] eGFR-All Other Races 54 . Normal [facility] Comment on above: Result Comment: eGFR [...] [email or web address]. Glucose [Mass/Vol] 72 mg/dL Low 74-99 [facility] Comment on above: Result Comment: The [place] Diabetes Association (ADA) provides guidance for cutoff [...] for diagnosis of diabetes. Reference: Standards of [facility] Care in Diabetes 2016, [place] Diabetes Association. Diabetes Care. 2016.39(Suppl 1). Potassium [Moles/Vol] 4.3 mmol/L Normal 3.7-5.1 [facility] Sodium [Moles/Vol] 142 mmol/L Normal 136-144 [facility] Urea nitrogen [Mass/Vol] 16 mg/dL Normal 9-24 [facility] CBC on 01-09-2022 Absolute nRBC <0.01 Normal <0.01 [facility] Erythrocyte distribution 13.5 % Normal 11.5-15.0 [facility] width (RBC) [Ratio] Clevelporfirio d Hematocrit (Bld) [Volume 38.9 % Low 39.0-51.0 [facility] fraction] [place] Hemoglobin (Bld) [Mass/Vol] 12.6 g/dL Low 13.0-17.0 [facility] MCH 30.7 pG Normal 26.0-34.0 [facility] MCHC (RBC) [Mass/Vol] 32.4 g/dL Normal 30.5-36.0 [facility] MCV (RBC) [Entitic vol] 94.9 fL Normal 80.0-100.0 [facility] Platelet mean volume (Bld) 9.6 fL Normal 9.0-12.7 [facility] [place] [facility] [Entitic vol] [place] Platelets (Bld) [#/Vol] 170 10*3/uL Normal 150-400 [facility] RBC (Bld) [#/Vol] 4.10 10*6/uL Low 4.20-6.00 [facility] WBC (Bld) [#/Vol] 5.82 10*3/uL Normal 3.70-11.00 [facility] TSH on 01-09-2022 TSH Qn 5.780 m[IU]/L High 0.270-4.200 [facility] Comment on above: Performed By: #### TSH ####C [facility] [id number] [place], [place] [phone] Basic Panel on 09-23-2019 Creatinine [Mass/Vol] 1.11 mg/dL Normal 0.67-1.17 [facility] [place] [facility] Comment on above: Performed By: #### P8 #### [facility] [address] [place], [place] [address] Anion gap [Moles/Vol] 8 mmol/L Normal 8-16 [facility] [place] [facility] Comment on above: Performed By: #### P8 #### [facility] [address] [place], [place] [address] CO2 [Moles/Vol] 27 mmol/L Normal 21-32 [facility] Comment on above: Performed By: #### P8 #### [facility] [address] [place], [place] [address] Urea nitrogen [Mass/Vol] 23 mg/dL High 7-18 [facility] Comment on above: Performed By: #### P8 #### [facility] [address] [place], [place] [address] Calcium [Mass/Vol] 9.5 mg/dL Normal 8.5-10.[address] [facility] Comment on above: Performed By: #### P8 #### [facility] [address] [place], [place] [address] Glucose [Mass/Vol] 105 mg/dL High 70-[address] [facility] Comment on above: Performed By: #### P8 #### [facility] [address] [place], [place] [address] Chloride [Moles/Vol] 107 mmol/L Normal 98-107 [facility] Comment on above: Performed By: #### P8 #### [facility] [address] [place], [place] [address] Potassium [Moles/Vol] 4.3 mmol/L Normal 3.5-5.1 [facility] [place] [facility] Comment on above: Performed By: #### P8 #### [facility] [address] [place], [place] [address] Sodium [Moles/Vol] 138 mmol/L Normal 136-[address] [facility] Comment on above: Performed By: #### P8 #### [facility] [address] [place], [place] [address] CNPN on 09-23-2019 CNPN Telephone (AKPRAD) Normal [place] NAVID Ward ([id number]) 1935 M Medical Date Time Provider Department [...] TA* TAKE 3 TABLETS ONCE A W [place] FAMOTIDINE 20 MG TABLET Take 1 tablet [...] More... Bradycardia [R00.1] INVALID FOR* Atherosclerosis of nikolai coronary artery of na*INVALI D FOR* Chronic [...] 09-23-2019 ECG COMPLETE NAME : NAVID CORTES [employer] [facility] PID : [id number] Center : 1935 Gender : Male Race : ORD : [id number] Procedure Date : Sep 23 2019 05:24:07 Edit Date : Sep 25 2019 09:07:38 Diagnosis:Atrial-paced rhyth m with prolonged AV conduction WITH OCCASIONAL PREMATURE VENTRICULAR COMPLEXES INAPPROPRIATE PACING, SUSPECT PACEMAKER DYSFUNCTION ABNORMAL ECG NO PREVIOUS ECGS AVAILABLE Confirmed by MD CAGE VINAYAK ([id number]) on 09/25/2019 9 :07:33 AM Ventricular Rate : 68 BPM Atrial Rate : 53 BPM P-R Interval : 252 ms QRS Duration : 106 ms Q-T Interval : 410 ms QTC Calculation(Bazett) : 435 ms R [place] : 43 degrees T [place] : 52 degrees Test Reason : Arrhythmia Location : 103 : [place] Overread By : MD CAGE VINAYAK Edited By : MD CAGE VINAYAK Referred By : HOLLAND ORDONEZ Acquired by : PATRICE PERAZA Hemogram on 09-23-2019 Erythrocyte distribution width 12.7 % Normal 11.6-14.4 [facility] [place] [facility] (RBC) [Ratio] Comment on above: Performed By: #### CBC1 #### [facility] [address] [place], [place] [address] Hematocrit (Bld) [Volume 40.2 % Normal 40.1-51.0 [facility] fraction] Comment on above: Performed By: #### CBC1 #### [facility] [address] [place], [place] [address] Hemoglobin (Bld) [Mass/Vol] 13.0 g/dL Low 13.7-17.5 [facility] [place] [facility] Comment on above: Performed By: #### CBC1 #### [facility] [address] [place] [address] MCH (RBC) [Entitic mass] 31.4 pg Normal 25.7-32.2 [facility] Comment on above: Performed By: #### CBC1 #### [facility] [address] [place] [address] MCHC (RBC) [Mass/Vol] 32.3 % Normal 32.3-36.5 [facility] [place] [facility] Comment on above: Performed By: #### CBC1 #### [facility] [address] [place] [address] MCV (RBC) [Entitic vol] 97.1 fL High 83.2-95.6 [facility] [facility] Comment on above: Performed By: #### CBC1 #### [facility] [address] [place] [address] Platelet mean volume (Bld) 9.7 fL Normal 8.7-12.0 [facility] [Entitic vol] Comment on above: Performed By: #### CBC1 #### [facility] [address] [place], [place] [address] Platelets (Bld) [#/Vol] 194 thou/cmm Normal 141-365 [facility] Comment on above: Performed By: #### CBC1 #### [facility] [address] [place], [place] [address] RBC (Bld) [#/Vol] 4.14 mil/cmm Low 4.63-6.08 [facility] Comment on above: Performed By: #### CBC1 #### [facility] [address] [place], [place] [address] RDW SD 45.2 fl Normal 36.1-45.8 [facility] Comment on above: Performed By: #### CBC1 #### [facility] [address] [place], [place] [address] WBC (Bld) [#/Vol] 8.83 thou/cmm Normal 4.23-9.07 [facility] [employer] [facility] Comment on above: Performed By: #### CBC1 #### [facility] [address] [place], [place] [address] MDRD GFR on 09-23-2019 GFR/1.73 sq M predicted mL/min/{1.73_m2} Normal >60mL/min/1.[address] [facility] among non-blacks MDRD System (S/P/Bld) [Vol rate/Area] Comment on above: Result Comment: If the patie nt is , multiply the result by 1.210. Performed By: #### GFR #### [facility] [address] [place], [place] [address] XR CHEST 2V FRONTAL/LAT on 09-23-2019 XR CHEST 2V FRONTAL/LAT * * *Final Report* * * Normal [facility] DATE OF EXAM: Sep 23 2019 [...] is stable and unchanged from April 27. Precision Thread Grinder Operator: NELSON Transcribe Date/Time: Sep 23 2019 9:53A Dictated by : PAUL SHUKLA MD This examination was interpreted and the report review ed and electronically signed by: PAUL SHUKLA MD on Sep 23 2019 9:55AM EST ANES POST on 09-22-2019 ANES POST HNO ID: [id number] Normal [facility] Author: Asia Champion Service: Anesthesiology Author Type: [...] 22, 2019 TIME: 2:08 PM PAGER/CONTACT #: [phone] ANES PREOP on 09-22-2019 ANES PREOP HNO ID: [id number] Normal [facility] Author: Asia Drake enter Service: Anesthesiology [...] Interstitial Lung Disease (Hcc) Bradycardia Atherosclerosis of Kashia Coronary Artery of Kashia He art Without Angina Pectoris Chronic Obstructive Pulmonary Disease With (Acute) Exa cerbation (Hcc) Dizziness and Giddiness Fatigue Gout Vasculitis ([facility]) PAST MEDICAL HISTORY Diagnosis Date - Anal stenosis 04/05/2013 - ANEMIA NORMOCYTIC 07/21/2006 - CAD (coronary artery disease) two-vessel CABG 1996 ([facility]); PCI/stent LCX 2010 - CKD (chronic kidney disease) stage 3, GFR 30-59 ml/m in ([facility]) 08/11/2016 - Closed fracture of metatarsal bone(s) [...] mention of complication - Interstitial lung disease ([facility]) 05/18/2017 - Mild cognitive disorder 08/12/2015 - Mixed hyperlipidemia Hyperlipidemia - Occlusion and stenosis of carotid artery without men tion of cerebral infarction 07/08/2010 - OM (osteomyelitis) ([facility]) 04/03/2010 - PAC (premature atrial contraction) - [...] canela nt; - CAROTID SURGERY Left 1997 CAROTID-firth-- left - CAROTID SURGERY Right 05/04/2014 RIGHT CAROTID - CATARACT EXTRACTION HX Bilateral 2015 - COLONOSCOP W/ OR W/O BRSH SPEC 08/10/2014 - CORONARY ARTERY BYPASS GRAFT 06/06/1997 CABG 2 vessel: VIZCARRA Y graft to LAD and diagonal branch ; [facility], Dr. Valenzuela - ECHOCARDIOGRAM 02/18/2018 normal [...] STRESS 02/18/2018 no ischemia or scar - RI ANESTH,OPEN HEART; W/O PUMP OXYEGENATOR 1996 triple bypass - REMOVAL OF TONSILS,<12 Y/O 1941 Tonsillectomy - SIGMOIDOSCOPY FLEX DIAG 06/19/08 - TOTAL KNEE REPLACEMENT Right 05/02/2012 Knee replacement, total Right Dr. Gentile [facility] - TRANSURETHRAL ELEC-SURG PROSTATECTOM 2005 TURP - VASECTOMY 1971 FAMILY HISTORY Problem Relation Age of Onset - No Known Problems Mother from sepsis - Heart Father [place] - Diabetes Father - Heart Attack Father [...] 1 tablet by melissa th once daily. [place]-3 Fatty Acids (FISH OIL) 500 mg cap [...] 0.4 mg cap Take 1 capsule by [facility] daily at bedtime. fluticasone (FLONASE) 50 [...] September 22, 2019 TIME: 8:33 AM CSN: [id number] Basic Panel on 09-22-2019 Creatinine [Mass/Vol] 1.24 mg/dL High 0.67-1.17 [facility] [place] [facility] Comment on above: Performed By: #### P8 #### [facility] [address] [place], [place] [address] Anion gap [Moles/Vol] 8 mmol/L Normal 8-16 [facility] [place] [facility] Comment on above: Performed By: #### P8 #### [facility] [address] [place], [place] [address] Calcium [Mass/Vol] 9.3 mg/dL Normal 8.5-10.[address] [facility] Comment on above: Performed By: #### P8 #### [facility] [address] [place], [place] [address] CO2 [Moles/Vol] 30 mmol/L Normal 21-32 [facility] Comment on above: Performed By: #### P8 #### [facility] [address] [place], [place] [address] Glucose [Mass/Vol] 102 mg/dL High 70-[address] [facility] Comment on above: Performed By: #### P8 #### [address] [address] Urea nitrogen [Mass/Vol] 16 mg/dL Normal 7-18 [facility] Comment on above: Performed By: #### P8 #### [facility] [address] [place] [address] Chloride [Moles/Vol] 104 mmol/L Normal 98-107 [facility] Comment on above: Performed By: #### P8 #### [facility] [address] [place] [address] Potassium [Moles/Vol] 4.2 mmol/L Normal 3.5-5.1 [facility] [place] [facility] Comment on above: Performed By: #### P8 #### [facility] [address] [place] [address] Sodium [Moles/Vol] 138 mmol/L Normal 136-[address] [facility] Comment on above: Performed By: #### P8 #### [facility] [address] [place] [address] HISTORY PHYSICAL on 09-22-2019 HISTORY HNO ID: [id number] Normal [place] [facility] Author: Holland Ordonez General Service: Electrophysiology M edical Author Type: Physician Antoni cevallos Type: HANDP Filed: 09/22/2019 10:09 AM Note Text: [facility] Electrophysiology (EP) EP Attending HANDP from 08/25/2019 copied forward here: <<<<<<<<<<<<<<<<<<<<<<<<<<<<<<<<<<<<<<<<<<<<<<<<<<& lt;<<<<< Office Visit 08/25/2019 [facility] [place] Holland Ordonez Cardiology Bradycardia +4 more Dx New Patient ; Referred by Augusto Tran Reason for Visit Progress Notes Expand All Collapse All PRIMARY CARE PHYSICIAN: Jason Snider MD [address] [place] [address] ? REFERRING PHYSICIAN: Augusto Tran MD ([facility]) [address] [address] ? Patient Care Team: Jason Snider as PCP - General (Internal Medicine ) Augusto Tran as Specialty Motor Vehicle Examiner (Cardiology) Kenan Mari as Specialty Motor Vehicle Examiner (Pulmonary Disease) Lorne Andrew Jr. as Specialty Motor Vehicle Examiner (Ophtha lmology) Aracelis Aceves as Specialty Motor Vehicle Examiner (Podiatry) Claude He as Specialty Motor Vehicle Examiner (Ce rebrovascular) ? CHIEF COMPLAINT: Evaluation of [...] They walk one mile to the local [employer]ant for break fast, then walk the one [...] symptoms. He has been evaluated by a smoking pipe driller and threader, Dr. Tran. Mr. Cortes has a hist [...] artery disease) ? ? two-vessel CABG 1996 ([facility]); PCI/stent L CX 2010 - CKD (chronic kidney disease) stage 3, GFR 30-59 ml/m in ([facility]) 08/11/2016 - Closed fracture of metatarsal bone(s) [...] graft to LAD and diagonal bran ch; [facility], Dr. Valenzuela - ECHOCARDIOGRAM ? 02/18/2018 [...] 02/18/2018 ? no ischemia or scar - RI ANESTH,OPEN HEART; W/O PUMP OXYEGENATOR ? 1996 ? triple bypass - REMOVAL OF TONSILS,<12 Y/O ? 194 ? Tonsillectomy - SIGMOIDOSCOPY FLEX DIAG ? 06/19/08 - TOTAL KNEE REPLACEMENT Right 05/02/2012 ? Knee replacement, total Right Dr. Gentile [facility] - TRANSURETHRAL ELEC-SURG PROSTATECTOM ? 2005 ? [...] from sepsis - Heart Father ? ? [place] - Diabetes Father ? - Heart Attack [...] 1 tablet by mo uth once daily. [place]-3 Fatty Acids (FISH OIL) 500 mg cap, [...] 42 bpm; borderlin e first-degree AV block (RI 200 ms); normal QRS duration 112 ms ? I have personally reviewed the Electrocardiogram. ? ASSESSMENT/PLAN: 1. Bradycardia - ICD9: 427.89, ICD10: R00.1 (primary d iagnosis) 2. Atherosclerosis of nikolai coronary artery of nikolai heart without angina pectoris - ICD9: 414.01, [...] told by his local physicians including his liner machine operator that the exertional shortn ess of breath [...] that he has an appointment wi his liner machine operator, Dr. Mari, sometime very soon and woul [...] Erythrocyte distribution width 12.9 % Normal 11.6-14.4 [facility] [place] [facility] (RBC) [Ratio] Comment on above: Performed By: #### CBC1 #### [place] [address] Hematocrit (Bld) [Volume 41.4 % Normal 40.1-51.0 [facility] fraction] Comment on above: Performed By: #### CBC1 #### [place] [address] Hemoglobin (Bld) [Mass/Vol] 13.4 g/dL Low 13.7-17.5 [facility] [place] [facility] Comment on above: Performed By: #### CBC1 #### [place] [address] MCH (RBC) [Entitic mass] 31.7 pg Normal 25.7-32.2 [facility] Comment on above: Performed By: #### CBC1 #### [place] [address] MCHC (RBC) [Mass/Vol] 32.4 % Normal 32.3-36.5 [facility] [place] [facility] Comment on above: Performed By: #### CBC1 #### [place] [address] MCV (RBC) [Entitic vol] 97.9 fL High 83.2-95.6 [facility] Comment on above: Performed By: #### CBC1 #### [facility] [address] [place], [place] [address] Platelet mean volume (Bld) 9.5 fL Normal 8.7-12.0 [facility] [Entitic vol] Comment on above: Performed By: #### CBC1 #### [facility] [address] [place], [place] [address] Platelets (Bld) [#/Vol] 216 thou/cmm Normal 141-365 [facility] Comment on above: Performed By: #### CBC1 #### [facility] [address] [place], [place] [address] RBC (Bld) [#/Vol] 4.23 mil/cmm Low 4.63-6.08 [facility] Comment on above: Performed By: #### CBC1 #### [facility] [address] [place] [address] RDW SD 45.5 fl Normal 36.1-45.8 [facility] Comment on above: Performed By: #### CBC1 #### [facility] [address] [place], [place] [address] WBC (Bld) [#/Vol] 8.38 thou/cmm Normal 4.23-9.[address] [facility] Comment on above: Performed By: #### CBC1 #### [facility] [address] [place] [address] NURSING PROG on 09-22-2019 NURSING HNO ID: [id number] [facility] PROG Author: Amie (Rn) YOANA Bergman General Service: Nursing Medical Author Type: Registered Nurse Center Type: Nursing Progress Note Filed: 09/22/2019 1:42 PM Note Text: Nursing Progress Note Patient Name: Navid Cortes Patient Location: Notified Juan FLOOR ASSOCIATE with EP that pt's BP has been elevat ed since he has been on the floor, and that he took his lisinopril thi s AM. Reviewed VS, procedure chart and chart with FLOOR ASSOCIATE, she stated to mani r her in one hour is it remains elevated by paging #[phone] This note was completed by: Amie Bergman RN PROGRESS on 09-22-2019 PROGRESS HNO ID: [id number] [facility] Author: Elizabeth (Rn) YOANA Pardo Service: Electrophysiology Author Type: Registered Nurse Type: Progress Notes Filed: 09/22/2019 3:04 PM Note Text: Pacemaker discharge teaching reviewed with patient and family. IGOR on 08-29-2019 CNPN Telephone (AGCARDPOB) Normal [place] [facility] NAVID CORTES ([id number]) 1935 M Medical Date Time Provider Department [...] bef ore procedure. Patient will need a auto haulaway driver day of procedure. Patient should co ntinue to take medications as prescribed morning of pro cedure with just a sip of water unless otherwise instructed. Spoke with spouse, confirmed date and verbalized under standing of all instructions given. Traci Lau RN 08/30/2019 9:22 AM Signed Pt's name has been added to [place] procedure board. Annabelle Lau RN Allergies As [...] TA* TAKE 3 TABLETS ONCE A W KOBUK FAMOTIDINE 20 MG TABLET Take 1 tablet [...] More... Bradycardia [R00.1] INVALID FOR* Atherosclerosis of nikolai coronary artery of na*INVALI D FOR* Chronic obstructive pulmonary disease with (acu*INVALI D FOR* Dizziness and giddiness [R42] INVALID FOR* Fatigue [R53.83] INVALID FOR* Gout [M10.9] INVALID FOR* Vasculitis (HCC) [I77.6] INVALID FOR* Encounter Status:Closed by TRACI FLORES on 08/29/19 HOSP on 08-28-2019 HOSP Patient:Navid Cortes Normal [facility] MRN: [place] Height:6' 0 (1.829 m) Weight:173 lb 9.6 [...] mg tablet clopidogrel (PLAVIX) 75 mg tablet [place]-3 Fatty Acids (FISH OIL) 500 mg cap [...] disease (HCC) [J84.9] Bradycardia [R00.1] Atherosclerosis of nikolai coronary artery of nikolai he art without angina pectoris [I25.10] Chronic [...] 41.4 % 09/22/2019 51.0 40.1 Progress Notes ([facility]): Nicol Krishnamurthy LPN 09/11/2019 9:40 [...] bef ore procedure. Patient will need a auto haulaway driver day of pr ocedure. Patient should [...] (AGCARDPOB) Normal [facility] NAVID CORTES ([id number]) 1935 M Medical Date Time Provider Department Center 08/25/19 9:20 AM HOLLAND ORDONEZ AGCDEANNA During your visit today, we recorded the following inf ormation about you: Pulse Respiration Blood pressure Weight 47/minute 16/minute 140/66 79.7 kg Height 1.829 m Holland Ordonez MD 08/25/2019 8:15 PM Signed PRIMARY CARE PHYSICIAN: Jason Snider MD [address] [place] [address] REFERRING PHYSICIAN: Augusto Tran MD ([facility]) [address] [address] Patient Care Team: Jason Snider as PCP - General (Internal Medicine ) Augusto Tran as Specialty Motor Vehicle Examiner (Cardiology) Kenan Mari as Specialty Motor Vehicle Examiner (Pulmonary Disease) Lorne Andrew Jr. as Specialty Motor Vehicle Examiner (Ophtha lmology) Aracelis Aceves as Specialty Motor Vehicle Examiner (Podiatry) Claude He as Specialty Motor Vehicle Examiner (Ce rebrovascular) CHIEF COMPLAINT: Evaluation of arrhythmia [...] They walk one mile to the local [employer] restaurant for breakfast, then walk the one [...] ymptoms. He has been evaluated by a smoking pipe driller and threader, Dr. Tran. Mr. Cortes has a history [...] CAD (coronary artery disease) two-vessel CABG 1996 ([facility]); PCI/stent LCX 2010 - CKD (chronic kidney disease) stage 3, GFR 30-59 ml/m in ([facility]) 08/11/2016 - Closed fracture of metatarsal bone(s) [...] mention of complication - Interstitial lung disease ([facility]) 05/18/2017 - Mild cognitive disorder 08/12/2015 - Mixed hyperlipidemia Hyperlipidemia - Occlusion and stenosis of carotid artery without men tion of cerebral infarction 07/08/2010 - OM (osteomyelitis) ([facility]) 04/03/2010 - PAC (premature atrial contraction) - [...] Y graft to LAD and diagonal branch; [facility], Dr. Valenzuela - ECHOCARDIOGRAM 02/18/2018 normal [...] STRESS 02/18/2018 no ischemia or scar - RI ANESTH,OPEN HEART; W/O PUMP OXYEGENATOR 1996 triple bypass - REMOVAL OF TONSILS,<12 Y/O 1941 Tonsillectomy - SIGMOIDOSCOPY FLEX DIAG 06/19/08 - TOTAL KNEE REPLACEMENT Right 05/02/2012 Knee replacement, total Right Dr. Gentile [facility] - TRANSURETHRAL ELEC-SURG PROSTATECTOM 2006 TURP - VASECTOMY 1971 SOCIAL HISTORY Social History Tobacco Use - Smoking status: Never Smoker - Smokeless tobacco: Never Used Substance Use Topics - Alcohol use: No - Drug use: No FAMILY HISTORY Problem Relation Age of Onset - No Known Problems Mother from sepsis - Heart Father [place] - Diabetes Father - Heart Attack Father [...] 1 tablet by mo uth once daily. [place]-3 Fatty Acids (FISH OIL) 500 mg ca p, Take 1 capsule by mouth once daily. nitroglycerin sublingual (NI TROQUICK) 0.4 mg SL tablet, Dissolve 1 tablet under the tongue as needed. FOR CHEST PAIN. IF NO RELIEF KELSI L 911 fluticasone (FLONASE) 50 mcg/actuation nasal spray, Us e 2 Sprays in each nostril once daily. Rinse mouth after use. Polyethylene Glycol 3350 (IA RALAX) 17 gram/dose powder, Take 17 g [...] 42 bpm; bor derline first-degree AV block (RI 200 ms); normal QRS duration 112 ms I have personally reviewed the Electrocardiogram. ASSESSMENT/PLAN: 1. Bradycardia - ICD9: 427.89, ICD10: R00.1 (primary d iagnosis) 2. Atherosclerosis of nikolai coronary artery of nikolai heart without angina pectoris - ICD9: 414.01, [...] told by his local physicians including his liner machine operator t hat the exertional shortness of breath [...] that he has an appointment with his liner machine operator, Dr. Mari, someti me very soon and [...] Elen Allen CMA Referring Provider: AUGUSTO TRAN [[id number]] Allergies As of Date: 08/25/2019 Noted Allergy [...] Visit Diagnosis:Bradycardia [R00.1] Other Visit Diagnoses:Atherosclerosis of nikolai riley ry artery of nikolai heart without angina pectoris [I25.10] Chronic kidney disease, stage 3 (moderate) (HCC) [N18. 3] Fatigue, unspecified type [R53.83] Dizziness and giddiness [R42] Order(s):ECG B/O W INTERP (MED OFFICE) [ECG06] Order # : [id number] SURGICAL REQUEST - ELECTIVE [1007568] Order #: [id number]: 1 Prescriptions as of 08/25/2019 Sig: OFLOXACIN 0.3 % EYE DROPS INSTILL 1 DROP IN THE RIGHT E* LISINOPRIL 10 MG TABLET Take 1 tablet by mouth once d* METHOTREXATE SODIUM 2.5 MG TA* TAKE 3 TABLETS ONCE A W KOBUK FAMOTIDINE 20 MG TABLET Take 1 tablet [...] More... Bradycardia [R00.1] INVALID FOR* Atherosclerosis of nikolai coronary artery of na*INVALI D FOR* Chronic [...] on PROGRESS on 08-25-2019 PROGRESS HNO ID: [id number] [facility] [place] [facility] Author: Holland Geller [facility] Service: ? Author Type: Physician Type: Progress Notes Filed: 08/25/2019 8:15 PM Note Text: PRIMARY CARE PHYSICIAN: Jason Snider MD [address] [facility] [place] [address] REFERRING PHYSICIAN: Augusto Tran MD ([facility]) [address] [facility] [address] [address] Patient Care Team: Jason Snider as PCP - General (Internal Medicine ) Augusto Tran as Specialty Motor Vehicle Examiner (Cardiology) Kenan Mari as Specialty Motor Vehicle Examiner (Pulmonary Disease) Lorne Andrew Jr. as Specialty Motor Vehicle Examiner (Ophtha lmology) Aracelis Aceves as Specialty Motor Vehicle Examiner (Podiatry) Claude He as Specialty Motor Vehicle Examiner (Ce rebrovascular) CHIEF COMPLAINT: Evaluation of arrhythmia [...] They walk one mile to the local [employer] restaurant for break fast, then walk the [...] symptoms. He has been evaluated by a smoking pipe driller and threader, Dr. Tran. Mr. Cortes has a hist [...] CAD (coronary artery disease) two-vessel CABG 1996 ([facility]); PCI/stent LCX 2010 - CKD (chronic kidney disease) stage 3, GFR 30-59 ml/m in ([facility]) 08/11/2016 - Closed fracture of metatarsal bone(s) [...] mention of complication - Interstitial lung disease ([facility]) 05/18/2017 - Mild cognitive disorder 08/12/2015 - Mixed hyperlipidemia Hyperlipidemia - Occlusion and stenosis of carotid artery without men tion of cerebral infarction 07/08/2010 - OM (osteomyelitis) ([facility]) 04/03/2010 - PAC (premature atrial contraction) - [...] graft to LAD and diagonal branch ; [facility], Dr. Valenzuela - ECHOCARDIOGRAM 02/18/2018 normal [...] STRESS 02/18/2018 no ischemia or scar - RI ANESTH,OPEN HEART; W/O PUMP OXYEGENATOR 1996 triple bypass - REMOVAL OF TONSILS,<12 Y/O 1941 Tonsillectomy - SIGMOIDOSCOPY FLEX DIAG 06/19/08 - TOTAL KNEE REPLACEMENT Right 05/02/2012 Knee replacement, total Right Dr. Gentile [facility] - TRANSURETHRAL ELEC-SURG PROSTATECTOM 2005 TURP - VASECTOMY 1971 SOCIAL HISTORY Social History Tobacco Use - Smoking status: Never Smoker - Smokeless tobacco: Never Used Substance Use Topics - Alcohol use: No - Drug use: No FAMILY HISTORY Problem Relation Age of Onset - No Known Problems Mother from sepsis - Heart Father [place] - Diabetes Father - Heart Attack Father [...] 1 tablet by mo uth once daily. [place]-3 Fatty Acids (FISH OIL) 500 mg cap, [...] 42 bpm; borderlin e first-degree AV block (RI 200 ms); normal QRS duration 112 ms I have personally reviewed the Electrocardiogram. ASSESSMENT/PLAN: 1. Bradycardia - ICD9: 427.89, ICD10: R00.1 (primary d iagnosis) 2. Atherosclerosis of nikolai coronary artery of nikolai heart without angina pectoris - ICD9: 414.01, [...] told by his local physicians including his liner machine operator that the exertional shortn ess of breath [...] that he has an appointment wi his liner machine operator, Dr. Mari, sometime very soon and woul [...] 11-11-2022 Body temperature 96.91 [degF] Geni Migdalia COIL WINDER.[facility] 15:0 Work Phone: 11-11-2022 Body weight 85.73 kg Geni Migdalia COIL WINDER.[facility] 15: Work Phone: 11-11-2022 Diastolic blood 80 mm[Hg] Geni Migdalia [facility] WINDER[facility] 15:050 pressure Work Phone: 11-11-2022 Heart rate 60 /min Geni Migdalia [facility]IL WINDER[facility]: Work Phone: 11-11-2022 Respiratory rate 16 /min Geni Migdalia COIL WINDER.[facility] 15: Work Phone: 11-11-2022 SaO2% (BldA) [Mass 98 % Geni Migdalia COIL WINDER.[facility] 15:050 fraction] Work Phone: 11-11-2022 Systolic blood 142 mm[Hg] Geni Migdalia COIL WINDER.[facility] 15:050 pressure Work Phone: 09-17-2022 Body temperature 97.5 [degF] Jason Snider MD [facility] 18: Work Phone: 09-17-2022 Body weight 80.74 kg Jason la[facility] 18:0 Work Phone: 09-17-2022 Diastolic blood 84 mm[Hg] Jason Snider MD [facility] 18:0400 pressure Work Phone: 09-17-2022 Heart rate 60 /min Jason [facility] [id number] Work Phone: 09-17-2022 Respiratory rate 16 /min [facility] [id number] Work Phone: 09-17-2022 SaO2% (BldA) [Mass 98 % Jason Snider MD [facility] [id number]:100400 fraction] Work Phone: 09-17-2022 Systolic blood 134 mm[Hg] [facility] 18:100400 pressure Work Phone: 05-29-2022 Body weight 79.38 kg Jason [facility] [id number]:[id number] Work Phone: 05-29-2022 Diastolic blood 80 mm[Hg] Jason Minor [facility] 17:000400 pressure Work Phone: 05-29-2022 Heart rate 60 /min Jason [facility] [id number] Work Phone: 05-29-2022 SaO2% (BldA) [Mass 96 % Jason Snider MD [facility] 17:000400 fraction] Work Phone: 05-29-2022 Systolic blood 136 mm[Hg] [facility] [id number]:000400 pressure Work Phone: Encounters Encounter Date Encounter Type Care Provider Facility Start: 01-06-2023 ambulatory JASON SNIDER Facility:[facility] End: 01-06-2023 Clinic Hospital Start: 01-06-2023 Patient encounter Aracelis Aceves Podiatry End: 01-06-2023 procedure Work Phone: Comment on above: Hyperkeratosis (Primary Dx); Onychomycosis; Amputation of little toe, ri ght, subsequent encounter ([facility]); PAD (peripheral artery disea se) ([facility]); Hammer toes of both feet Start: 11-11-2022 ambulatory JASON SNIDER Facility:[facility] End: 11-11-2022 Hospital Start: 11-11-2022 ambulatory ARACELISTAMMY MCGILLLOW Facility:[facility] End: 11-11-2022 Hospital Start: 11-11-2022 Patient encounter Geni Negron [facility] End: 11-11-2022 procedure Work Phone: [...] both feet Start: 11-06-2022 ambulatory JASON SNIDER Facility:[facility] End: 11-06-2022 Hospital Start: 11-02-2022 ambulatory JASON SNIDER Facility:[facility] End: 11-02-2022 Hospital Start: 09-25-2022 Telephone encounter [facility] Work Phone: Comment on above: Results Start: 09-22-2022 Refill Jason Snider MD Internal Medicine [place] Work Phone: Comment on above: Refill Request tamsulosin refill needed Start: 09-17-2022 ambulatory JASON SNIDER Facility:[facility] End: 09-17-2022 Hospital Start: 09-17-2022 Patient encounter Jason Snider MD Sales Recruitment Specialist al Medicine [place] End: 09-17-2022 procedure Work Phone: Comment on above: 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 (HCC) (Primary Dx); Essential hypertension; Idiopathic peripheral neurop athy Start: 09-16-2022 ambulatory ARACELIS ACEVES Facility:[facility] End: 09-16-2022 Hospital Start: 09-16-2022 Patient encounter Aracelis Aceves Podiatry End: 09-16-2022 procedure Work Phone: Comment on above: Hyperkeratosis (Primary Dx) Start: 08-25-2022 ambulatory Jason Snider MD Internal Medicine [place] Work Phone: Comment on above: 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 [employer] charles Start: 08-14-2022 ambulatory ALEIDA THOMAS Facility:[id number] End: 08-14-2022 Start: 08-14-2022 ambulatory Aleida Thomas OT/L [facility] [place] End: 08-14-2022 [place] Comment on above: Late onset Alzheimer's demen tia without behavioral disturbance (HCC) (Primary Dx) Start: 08-05-2022 ambulatory ARACELIS ACEVES Facility:[facility] End: 08-05-2022 Hospital Start: 08-05-2022 Patient encounter Aracelis Aceves Podiatry End: 08-05-2022 procedure Work Phone: Comment on above: Hyperkeratosis (Primary Dx); Hammer toes of both feet; Onychomycosis; Amputation of little toe, ri ght, subsequent encounter (HCC) Start: 07-13-2022 ambulatory Jason Snider MD [facility] Work Phone: Start: 07-13-2022 Patient encounter Jason Snider MD Sales Recruitment Specialist al Medicine [place] Work Phone: [place] Comment on above: Appointment Start: 07-05-2022 ambulatory Jason Snider MD Internal Medicine [place] Work Phone: Comment on above: Safety concerns for Dad/Art Start: 06-24-2022 ambulatory ARACELIS ACEVES Facility:[facility] End: 06-24-2022 Hospital Start: 06-24-2022 Patient encounter Aracelis Aceves Podiatry End: 06-24-2022 procedure Work Phone: Comment on above: Hyperkeratosis (Primary Dx); PAD (peripheral artery disea se) (HCC); Hammer toes of both feet Start: 05-29-2022 ambulatory JASON SNIDER Facility:[facility] End: 05-30-2022 Hospital Start: 05-29-2022 Patient encounter Jason Snider MD Sales Recruitment Specialist al [facility] [place] End: 05-29-2022 procedure Work Phone: Comment on above: Asthenia (Primary Dx); Essential hypertension; Dizziness; 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 (HCC); Mild protein-calorie malnutr ition (HCC); Stage 3a chronic kidney dise ase (HCC); Vasomotor rhinitis Start: 05-18-2022 ambulatory JASON SNIDER Facility:[facility] End: 05-18-2022 Hospital Start: 05-13-2022 ambulatory Jason Snider MD Internal [facility] [place] End: 05-13-2022 Work Phone: Comment on above: Recent ongoing medical shannan rns Start: 05-13-2022 Patient encounter procedure Aracelis Aceves P odiatry End: 05-13-2022 Work Phone: Comment on above: Hyperkeratosis (Primary Dx); PAD (peripheral artery disea se) ([facility]); Hammer toes of both feet; Onychomycosis; Amputation of little toe, ri ght, subsequent encounter ([facility]) Start: 04-05-2022 ambulatory Jason Snider MD Internal Medicine [place] Work Phone: Comment on above: Immunizations update and que stion Start: 03-31-2022 ambulatory ARACELIS ACEVES Facility:[facility] End: 03-31-2022 Hospital Start: 03-31-2022 Patient encounter Aracelis Aceves Podiatry End: 03-31-2022 procedure Work Phone: Comment on above: Hyperkeratosis (Primary Dx); PAD (peripheral artery disea se) ([facility]); Hammer toes of both feet Start: 03-27-2022 Refill Jason Snider MD Internal Medicine [place] Work Phone: Comment on above: Refill Request Start: 02-17-2022 ambulatory ARACELIS ACEVES Facility:[facility] End: 02-17-2022 Hospital Start: 02-17-2022 Patient encounter Aracelis Aceves Podiatry End: 02-17-2022 procedure Work Phone: Comment on above: Hammer toes of both feet (Pr imary Dx); Hyperkeratosis; PAD (peripheral artery disea se) (HCC) Start: 02-17-2022 Telephone encounter Jason Snider MD Inte rnal Medicine Work Phone: [place] Comment on above: Release Of Medical Records Start: 01-16-2022 ambulatory JASON SNIDER Facility:[facility] End: 01-16-2022 Hospital Start: 01-09-2022 ambulatory JASON SNIDER Facility:[facility] End: 01-09-2022 Hospital Start: 06-15-2021 ambulatory Jason Snider MD [facility] Work Phone: Start: 06-15-2021 Patient encounter Jason Snider MD Sales Recruitment Specialist al Medicine [place] procedure Work Phone: Comment on above: RE: Upcoming Appointment Lb conte Plan of Treatment Date Care Activity Detail Author Start: 08-17-2027 Urine microalbumin profile DTAP,TDAP,TD (1 - T dap) [facility] Comment on above: Postponed from 08/18/2017 (P ostponed To Appropriate Date) Start: 05-18-2025 DIABETES SCREEN DIABETES SCREEN [facility] ic Start: 01-09-2025 DIABETES SCREEN DIABETES SCREEN [facility] ic Start: 11-02-2023 Hepatitis B surface LDL CHOLESTEROL [facility] antibody level Start: 11-22-2022 ADVANCE DIRECTIVE ADVANCE DIRECTIVE [facility] DISCUSSION DISCUSSION Start: 07-31-2022 Hepatitis B surface LDL CHOLESTEROL [facility] antibody level Start: 07-29-2022 COVID-19 VACCINE (5 - COVID-19 VACCINE (5 - Cl [facility] Booster for Moderna Booster for Moderna series) series) Start: 07-23-2022 Influenza vaccination INFLUENZA (#1) [facility] Start: 05-15-2022 CBC panel - Blood by CBC Lab Routine [facility] End: 07-15-2022 Automated count General weakness Work Phone: Expected: 05/15/2022, Expires: 07/15/2022 Comment on above: Expected: 05/15/2022, s: 07/15/2022 Start: 05-15-2022 Cobalamin (Vitamin B12) [facility] End: 07-15-2022 [Mass/volume] in Serum Lab Routine General Work Phone: or Plasma weakness Expected: 05/15/2022, Expires: 07/15/2022 Comment on above: Expected: 05/15/2022, s: 07/15/2022 Start: 05-15-2022 Comprehensive metabolic COMP METABOLIC PANEL C [facility] End: 07-15-2022 2000 panel - Serum or Lab Routine General Work P rod: Plasma weakness Expected: 05/15/2022, Expires: 07/15/2022 Comment on above: Expected: 05/15/2022, s: 07/15/2022 Start: 05-15-2022 Thyrotropin TSH BLD Lab Routine [facility] End: 07-15-2022 [Units/volume] in Serum General weakness Work Ph one: or Plasma Expected: 05/15/2022, Expires: 07/15/2022 Comment on above: Expected: 05/15/2022, s: 07/15/2022 Start: 01-09-2022 COVID-19 VACCINE (4 - COVID-19 VACCINE (4 - Cl [facility] Booster for Moderna Booster for Moderna series) series) Start: 11-22-2021 ADVANCE DIRECTIVE ADVANCE DIRECTIVE [facility] DISCUSSION DISCUSSION [facility] Immunizations Immunization Date Immunization Notes Care Provider Facility 08-11-2022 influenza (aIIV4) Jason Sndier MD [facility] vaccine, age 65+ yr, Work Phone: Work Phone: quadrivalent, PF (FLUAD QUADRIVALENT) 08-07-2021 influenza, high-dose, Jason Snider MD [facility] quadrivalent vaccine Work Phone: Work Phone: (FLUZONE HIGH DOSE QUADRIVALENT) 01-29-2021 zoster vaccine Jason Snider MD [facility] recombinant Work Phone: 01-10-2021 COVID-19 vaccine, full Jason Lai [facility] dose (MODERNA) Work Phone: Work Phone: 12-12-2020 COVID-19 vaccine, full Jason Lai [facility] dose (MODERNA) Work Phone: Work Phone: 08-10-2020 influenza, injectable, Jason Lai [facility] quadrivalent, Work Phone: Work Phone: preservative free 08-10-2020 zoster vaccine Jason Snider MD [facility] recombinant Work Phone: W ork Phone: 09-04-2019 influenza, seasonal, Jason Snider MD [facility] injectable, preservative Work Phone: Work Phone: free 08-29-2018 influenza, high dose Jason Snider MD [facility] seasonal, Work Phone: W ork Phone: preservative-free 09-07-2017 influenza, seasonal, Jason Snider MD [facility] injectable, preservative Work Phone: Work Phone: free 08-17-2017 influenza, high dose Jason Snider MD [facility] seasonal, Work Phone: preservative-free 08-17-2017 tetanus and diphtheria Jason Lai [facility] toxoids, adsorbed, Work Phone: preservative free, for adult use (5 Lf of tetanus toxoid and 2 Lf of diphtheria toxoid) 08-05-2016 influenza, high dose Jason Snider MD [facility] seasonal, Work Phone: preservative-free 10-31-2015 influenza, high dose Jason Snider MD [facility] seasonal, Work Phone: W ork Phone: preservative-free 08-12-2015 pneumococcal conjugate Jason Lai [facility] vaccine, 13 valent Work Phone: 08-03-2013 influenza virus vaccine, Jason Snider MD [facility] unspecified formulation Work Phone: Work Phone: 08-10-2011 influenza, seasonal, Jason Snider MD [facility] injectable Work Phone: W ork Phone: 07-17-2011 zoster vaccine, live Jason Snider MD [facility] Work Phone: W [place]k Phone: 08-21-2010 influenza, seasonal, Jason Snider MD [facility] injectable Work Phone: W ork Phone: 11-02-2009 novel [id number], Jason Snider MD [facility] injectable Work Phone: W ork Phone: 07-21-2006 tetanus and diphtheria Jason Lai [facility] toxoids, adsorbed, Work Phone: preservative free, for adult use (2 Lf of tetanus toxoid and 2 Lf of diphtheria toxoid) 08-22-2004 pneumococcal Jason Snider MD [facility] polysaccharide vaccine, Work Phone: 23 valent 10-12-2002 hepatitis A vaccine, Jason Snider MD [facility] unspecified formulation Work Phone: Work Phone: 10-12-2001 hepatitis A vaccine, Jason Snider MD [facility] unspecified formulation Work Phone: Work Phone: 10-12-2001 tetanus and diphtheria Jason Lai [facility] toxoids, adsorbed, Work Phone: Work Phone: preservative free, for adult use (2 Lf of tetanus toxoid and 2 Lf of diphtheria toxoid) Payers Date Payer Category Payer Medicare AETNA MEDICARE AETNA [id number] MEDICARE PPO [id number] 2021-Present [phone] [address] [place] [address] PPO 2021 Medicare AETNA MEDICARE AETNA [id number] MEDICARE PPO [id number] [phone] 2021-Present [phone] [address] [place] [address] PPO 2014 Medicare [id number] Social History Date Type Detail Facility Start: 06-29-2011 Tobacco smoking status Never smoked tobacco [facility] Work Phone: Start: 02-17-2022 Alcohol intake Current non-drinker of [facility] End: 01-06-2023 alcohol (finding) Start: 08-26-2020 History SDOH Alcohol 1 [facility] End: 09-15-2022 Frequency Start: 08-26-2020 History SDOH Alcohol Std 98 [facility] Drinks Start: 08-08-2020 History SDOH Social 3 [facility] End: 09-15-2022 Connections Phone Start: 08-08-2020 History SDOH Social 4 [facility] End: 09-23-2020 [facility] Start: 09-23-2020 History SDOH Physical 6 [facility] Activity DPW Start: 08-08-2020 History SDOH Stress 2 [facility] End: 09-15-2022 Start: 08-08-2020 Education 18 [facility] ic Start: 1935 Sex Assigned At Male [facility] Start: 02-07-2022 Exposure to SARS-CoV-2 Not sure [facility] End: 09-16-2022 (event) Start: 06-29-2011 Tobacco use and exposure Smokeless tobacco [facility] non-user Start: 09-15-2022 History SDOH Alcohol Std 0 [facility] Drinks Clinical Notes 02-03-2020 to 01-06-2023 Aracelis Hannahkaci - 01/06/2023 2:38 PM Edie Garcia LPN - 01/06/2023 2:32 PM Henny Negron APRN.CNP - 11/11/2022 3:12 PM Edie Garcia LPN - 11/11/2022 2:21 PM ESTPatient Instructions Note Date & Type Note Facility 01-06-2023 Note HNO ID: [id number] [facility] Author: Aracelis Aceves [place] Service: ? Author Type: Physician Type: Progress [...] of little toe, rig ht, subsequent encounter ([facility]) (I73.9) PAD (peripheral artery disease) ([facility]) (M20.41, M20.42) Hammer toes of both fee t Plan: Patient was seen and evaluated. Callus very minimal on exam. Continue wi th wider shoes as these appear to be helping. Callus reduced with dremmel Toenails 1-5 left and 1-3 right debrided in length and thickness. Q7 modifier F/u in 2 months Aracelis MIGUEL Aceves 01-06-2023 Note HNO ID: [id number] [facility] Author: Luh Garcia LPN [place] Service: ? Author Type: LICENSED NURSE Type: Progress Notes Filed: 01/06/2023 7:25 PM Note Text: AMB ROOMING INTAKE FLOWSHEET DATA Patient presents with: Right Foot - Established Patient, Follow Up Luh Garcia LPN 01-06-2023 History of Present [facility] illness Narrative Subjective: Patient presents to [...] of little toe, rig ht, subsequent encounter ([facility]) (I73.9) PAD (peripheral artery disease) ([facility]) (M20.41, M20.42) Hammer toes of both fee [...] in this encounter 11-11-2022 Note HNO ID: [id number] [facility] Author: Geni Negron APRN.CUSTOMER OPERATIONS MANAGER [place] Service: ? Author Type: Nurse Practitioner Type: Progress Notes Filed: 11/11/2022 3:16 PM Note Text: Subjective The history is provided by the patient a nd the spouse. No foreign language interpreter was used. 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 ([facility]) 04/04/2021 Esophageal reflux Hemorrhage of rectum and anus History of prediabetes 08/05/2016 Hyperlipidemia Hypertensive kidney disease with stage 3 a chronic kidney disease ([facility]) 11/04/2022 Hypertrophy of prostate with urinary obs truction and other lower urinary tract symptoms (LUTS) 03/19/2006 HYPERURICEMIA 09/29/2006 Idiopathic peripheral neuropathy 0 Internal hemorrhoids without mention of complication Interstitial lung disease ([facility]) 7 Mixed hyperlipidemia Hyperlipidemia Moderate aortic valve stenosis 2 Occlusion and stenosis of carotid artery without mention of cerebral infarction 07/08/2010 OM (osteomyelitis) ([facility]) 04/03/2010 Osteomyelitis of fifth toe of right foot ([facility]) 01/23/2020 PAC (premature atrial contraction) 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 cardiac pacemaker 09/22/2019 Namshi dual-chamber pacemaker system; indication: symptomatic bradycardia due to sinus node dysfunctio n; system will be MRI conditional after 6 weeks post implant Psoriasis and similar disorders arthritis PSORIATIC ARTHRITIS 09/29/2006 PVC (premature ventricular contraction) Sinus node dysfunction ([facility]) 09/22/2019 Unspecified essential hypertension Essential hypertension Unspecified hypothyroidism Urethral stricture 04/04/2012 Urinary retention 03/16/2013 Vasculitis ([facility]) 04/01/2017 I have confirmed and edited as necessary , the [facility] Review of Systems Constitutional: Negative for chills [...] warrant ing prompt ER evaluation. Geni Negron APRN.CUSTOMER OPERATIONS MANAGER 11-11-2022 Note HNO ID: [id number] [facility] Author: Luh Garcia LPN [place] Service: ? Author Type: LICENSED NURSE Type: Progress Notes Filed: 11/11/2022 2:22 PM Note Text: Per Dr. Aceves, Navid was provided wi th universal sleeve, and instructed/educated in its application, wear, and care. All questions were answered, and [facility] was able [facility] competence with the necessary skills to utilize the above eq uipment. Luh Garcia LPN 11-11-2022 Note HNO ID: [id number] [facility] Author: Aracelis Aceves [place] Service: ? Author Type: Physician Type: Progress [...] of little toe, rig ht, subsequent encounter ([facility]) (I73.9) PAD (peripheral artery disease) ([facility]) (M20.41, M20.42) Hammer toes of both fee [...] MIGUEL Plata DPM 11-11-2022 Note HNO ID: [id number] [facility] Author: Aracelis Aceves [place] Service: ? Author Type: Physician Type: Progress Notes Filed: 11/11/2022 2:13 PM Note Text: See above 11-11-2022 Note HNO ID: [id number] [facility] Author: Luh Garcia LPN [place] Service: ? Author Type: LICENSED NURSE Type: [...] Luh Garcia LPN 11-11-2022 History of Present [facility] illness Narrative Images from the original note were not i ncluded. Subjective The history is provided by t he patient and the spouse. No foreign language interpreter was used. PIO Cortes is a [...] CAD (coronary artery disease) two-vessel CABG 1996 ([facility]); PCI/stent LCX 2010 Carotid stenosis, asymptomatic 03/23/2017 Chronic kidney disease, stage 3 (moderat e) 08/11/2016 CKD (chronic kidney disease) stage 3, GF R 30-59 ml/min ([facility]) 08/11/2016 Closed fracture of metatarsal bone(s) Cognitive disorder 08/12/2015 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 ([facility]) 04/04/2021 Esophageal reflux Hemorrhage of rectum and anus History of prediabetes 08/05/2016 Hyperlipidemia Hypertensive kidney disease with stage 3a chronic kidney disease ([facility]) 11/04/2022 Hypertrophy of prostate with urinary obstruction and other lower urinary tract symptoms (LUTS) 03/19/2006 HYPERURICEMIA 09/29/2006 Idiopathic peripheral neuropathy 0 Internal hemorrhoids without mention of complication Interstitial lung disease ([facility]) 7 Mixed hyperlipidemia Hyperlipidemia Moderate aortic valve stenosis 2 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 07/08/2010 OM (osteomyelitis) ([facility]) 04/03/2010 Osteomyelitis of fifth toe of right foot ([facility]) 01/23/2020 PAC (premature atrial contraction) 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 cardiac pacemaker 09/22/2019 Namshi dual-chamb er pacemaker system; indication: symptomatic bradycardia due to sinus node dysfunction; system will be MRI conditional after 6 weeks post implant Psoriasis and similar disorders arthritis PSORIATIC ARTHRITIS 09/29/2006 PVC (premature ventricular contraction) Sinus node dysfunction ([facility]) 09/22/2019 Unspecified essential hypertension Essential hypertension Unspecified hypothyroidism Urethral stricture 04/04/2012 Urinary retention 03/16/2013 Vasculitis ([facility]) 04/01/2017 I have confirmed and edited as necessary , the [facility] Review of Systems Constitutional: Negative for chills [...] detail warranting prompt ER evaluation. Geni Negron APRN.CUSTOMER OPERATIONS MANAGER documented in this encounter 11-11-2022 History of Present [facility] illness Narrative Per Dr. Aceves, Navid [...] of little toe, rig ht, subsequent encounter ([facility]) (I73.9) PAD (peripheral artery disease) ([facility]) (M20.41, M20.42) Hammer toes of both fee [...] in this encounter 11-06-2022 Note HNO ID: [id number] [facility] Author: Jason Snider MD [place] Service: ? Author Type: Physician Type: Progress Notes Filed: 11/06/2022 10:30 AM Note Text: This note was created using Basic[employer]ov Systemsriter. Subjective Navid Cortes is a 86 year [...] Interstitial Lung Disease (Hcc) Bradycardia Atherosclerosis of [place] Coronary Arter y of [place] Heart Without Angina Pectoris Gout Presence of Cardiac Pacemaker Mixed Hyperlipidemia Essential Hypertension Dementia of The Alzheimer's Type With La te Onset Without Behavioral Disturbance (Hcc) Mild Protein-Calorie Malnutrition (Hcc) Hypertensive Kidney Disease With Stage 3 a Chronic Kidney Disease (Hcc) History of Amputation of Lesser Toe, Rig ht (Hcc) Peripheral Artery Disease (Hcc) Sinus Node Dysfunction ([facility]) Current Outpatient Medications Medication Sig tamsulosin (FLOMAX) [...] eyes one day prior to eye injection. [place]-3 Fatty Acids (FISH OIL) 500 mg ca [...] Jason Snider MD 11-06-2022 Note HNO ID: [id number] [facility] Author: Jason Snider MD [place] Service: ? Author Type: Physician Type: Progress Notes Filed: 11/06/2022 10:30 AM Note Text: Navid Cortes is a 86 year old male her e for a Medicare Subsequent Annual Wellness Visit Health Risk Assessment In general, health is: Fair Concerns with balance:Not at all Concerns with teeth or dentures:Not at a ll Concerns with sexual function:Not at all [place] anxious, stressed, angry, irritable , lonely, isolated, [...] General (Internal Medicine) Augusto Tran as Specialty Motor Vehicle Examiner (Cardiology) Kenan Mari as Specialty Consulta nt (Pulmonary Disease) Lorne Andrew Jr., DO as Specialty Motor Vehicle Examiner (Ophthalmology) Aracelis Aceves as Specialty Motor Vehicle Examiner (Podiatry) Claude He MD/Diego paniagua MD as Specialty Motor Vehicle Examiner (Cerebrovascular) Dr. Julia Barron, rheumatology. Medical/Family history [...] kg/(m2). Visual acuity (required for [facility]): follows with optometry/ophthalmology and Right: 20/20 0 Left: 20/ 70 Both: 20/50 Hearing Evaluation: within normal limits Assessment/Plan - Counseled on healthy diet and regular exercise - Fall avoidance - Depression screening 09-25-2022 Miscellaneous Formatting of this note migh t be different from the original. [facility] Notes Printed for pcp to review. P cp signed. This has been faxed back to [place] [employer]. Formatting of this note might be differe nt from the original. Rec'd via fax an OT evaluation driving r eport. This has been entered in scanned documen ts. Please review. documented in this encounter 09-23-2022 Miscellaneous Formatting of this note migh t be different from the original. [facility] Notes Duplicate request. Ayesha Sainz LPN documented in this encounter 09-23-2022 Miscellaneous Formatting of this note is d ifferent from the original. [facility] Notes Patient has been identified by [...] in this encounter 09-18-2022 Note HNO ID: [id number] [facility] Author: Jason Snider MD [place] Service: ? Author Type: Physician Type: Progress Notes Filed: 09/18/2022 7:32 AM Note Text: This note was created using [employer]riter. Subjective Navid Cortes is a 86 year [...] Jason Snider MD 09-18-2022 History of Present [facility] illness Narrative This note was created using [employer]riter. Subjective Navid Cortes is a 86 year [...] in this encounter 09-17-2022 Note HNO ID: [id number] [facility] Author: Aracelis Aceves [place] Service: ? 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 ([facility]) 04/04/2021 Esophageal reflux Hemorrhage of rectum and anus History of prediabetes 08/05/2016 Hyperlipidemia Hypertrophy of prostate with urinary obs truction and other lower urinary tract symptoms (LUTS) 03/19/2006 HYPERURICEMIA 09/29/2006 Idiopathic peripheral neuropathy 0 Internal hemorrhoids without mention of complication Interstitial lung disease ([facility]) 7 Mixed hyperlipidemia Hyperlipidemia Occlusion and stenosis of carotid artery without mention of cerebral infarction 07/08/2010 OM (osteomyelitis) ([facility]) 04/03/2010 Osteomyelitis of fifth toe of right foot ([facility]) 01/23/2020 PAC (premature atrial contraction) 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 cardiac pacemaker 09/22/2019 Namshi dual-chamber pacemaker system; indication: symptomatic bradycardia due to sinus node dysfunctio n; system will be MRI conditional after 6 weeks post implant Psoriasis and similar disorders arthritis PSORIATIC ARTHRITIS 09/29/2006 PVC (premature ventricular contraction) Sinus node dysfunction ([facility]) 09/22/2019 Unspecified essential hypertension Essential hypertension Unspecified hypothyroidism Urethral stricture 04/04/2012 Urinary retention 03/16/2013 Vasculitis ([facility]) 04/01/2017 Current Outpatient Medications Medication Sig levothyroxine [...] eyes one day prior to eye injection. [place]-3 Fatty Acids (FISH OIL) 500 mg ca [...] not in cluded)... 09-16-2022 History of Present [facility] illness Narrative FOLLOW UP PODIATRIC OFFICE [...] (H) 4.3 - 5.6 % Final Comment: [place] Diabetes Association guidelines indicate that patients with [...] CAD (coronary artery disease) two-vessel CABG 1996 ([facility]); PCI/stent LCX 2010 Chronic kidney disease, [...] without mention of complication Interstitial lung disease ([facility]) 7 Mixed hyperlipidemia Hyperlipidemia 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 07/08/2010 OM (osteomyelitis) ([facility]) 04/03/2010 Osteomyelitis of fifth toe of right foot ([facility]) 01/23/2020 PAC (premature atrial contraction) 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 cardiac pacemaker 09/22/2019 Namshi dual-chamb er pacemaker system; indication: symptomatic bradycardia due to sinus node dysfunction; system will be MRI conditional after 6 weeks post implant Psoriasis and similar disorders arthritis PSORIATIC ARTHRITIS 09/29/2006 PVC (premature ventricular contraction) Sinus node dysfunction ([facility]) 09/22/2019 Unspecified essential hypertension Essential hypertension Unspecified hypothyroidism Urethral stricture 04/04/2012 Urinary retention 03/16/2013 Vasculitis ([facility]) 04/01/2017 Current Outpatient Medications Medication Sig levothyroxine [...] eyes one day prior to eye injection. 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 Gentile [facility] BUNIONECTOMY, [place]IDUS-TYPE Right 2009 Right foot CARDIAC CATH 01/28/2011 normal LV systolic fxn; norm al LM, occluded LAD; LCX 50% ostial, mid 80%; left PDA 50% prox; RCA small nondominant with 70% ostial stenosis; SVG-PDA occluded; VIZCARRA Y graft to LAD and diagonal branch patent; CAROTID SURGERY Left 1997 CAROTID-[facility]-- left CAROTID SURGERY Right 05/04/2014 RIGHT CAROTID CATARACT EXTRACTION HX Bilateral 2016 COLONOSCOPY FLX DX W/COLLJ SPEC WHEN BRIGITTE GONZALEZ 08/10/2014 CORONARY ARTERY BYPASS GRAFT 06/06/1997 CABG 2 vessel: VIZCARRA Y graft to LAD and diagonal branch; [facility], Dr. Valenzuela ECHOCARDIOGRAM 02/18/2018 normal LV [...] in this encounter 09-16-2022 Note HNO ID: [id number] [facility] Author: Luh Garcia LPN [place]wine Service: ? Author Type: LICENSED NURSE Type: [...] Luh Garcia LPN 08-14-2022 Note HNO ID: [id number] [facility] Author: Aleida Thomas OT/Matt Service: ? 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 [...] Driving: Right UE: Sufficient Left UE: Sufficient Restaurant Greeter: Sufficient Right LE: Sufficient Left LE: Sufficient [...] content not included)... 08-14-2022 History of Present [facility] illness Narrative Episode Visit Count: 1 [...] can provide transportation) Home Type: [place] Transportation: [facility] Patient Goals: to continue t o provide for local transportation needs as desired Intake Information: Prescription present Relevant History Past Relevant Medical Condit ions: Cardiac;Hypertension (Refer to medical chart for further details; was diagnosed with Alzheimer's dementia with late onset in past few years while [facility] in 2016) Highest Level of Education: Bachelors (a t minimum) Preferred Language: Kazakh Right or Left Handed: Right 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) Recreation / Current Exercise: walking Hobbies / Interests: reading newspaper, walking Home Environment Patient Lives With: Self/Alone Assistance Available: Part t litzy (has caregiver assist 7 days/week while 6 hours M-F and 4 hours Wednesday who complete various tasks and can provide transportation) Home Type: [place] Transportation: [facility] Activities of Daily Living: Independent Instrumental Activities of D aily Living: he has caregiver assist daily for 7 hours M-F and 4 hours on Sat/Sun that assist with cleaning, laundry, meal preparation, providing medication; outside work kyler en care of by complex; marianaissac everett manages finances, calendar, attends most of his appointments with him Driving History: 70 years State: [place] License/Permit #: [id number] E xpires: 11/09/25 Restrictions: none 5 Yr. [...] Driving: Right UE: Sufficient Left UE: Sufficient Restaurant Greeter: Sufficient Right LE: Sufficient Left LE: Sufficient [...] SUSPECTED DECREASED AUDITORY ATTENTION SKILLS Visual Scanning/Attention: [place] Making Part B (sec): 446 sec 50th [...] so , from the edge of the koi According to The Physician's Guide to Assessing [...] Not Suggestive of Safe Driving Potential [place] Rn Provider Relations Simulator: Simple Brake Reaction Time: Average Dist [...] drawing, Trailmaking B, Short Blessed Cognitive screen Self-Half-Way Management: Skilled Intervention: Treasuree ming judgment in [...] rep ort indicates the ability of the auto [place]ulaway driver to operate a motor vehicle on [...] PROVIDE INFORMATION TO PHYSICIAN REGARDING NOTIFYING THE [facility] SPECIAL CASE SECTIO N OF THE [...] imed/untimed) 120 minutes Evaluation - Moderate Complexity (14190) Self Care / Home Management (61073): 1:1 time: 60 minutes (4 units: 53-67 mins) Total time: 120 minutes Aleida Thomas OT/L, CDRS, CDI Certified Rn Provider Relations Rehabilitation Speciali st documented in this encounter 08-05-2022 Note HNO ID: [id number] [facility] Author: Aracelis Aceves Brandywine Service: ? 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 ([facility]) 04/04/2021 Esophageal reflux Hemorrhage of rectum and anus History of prediabetes 08/05/2016 Hyperlipidemia Hypertrophy of prostate with urinary obs truction and other lower urinary tract symptoms (LUTS) 03/19/2006 HYPERURICEMIA 09/29/2006 Idiopathic peripheral neuropathy 0 Internal hemorrhoids without mention of complication Interstitial lung disease ([facility]) 7 Mixed hyperlipidemia Hyperlipidemia Occlusion and stenosis of carotid artery without mention of cerebral infarction 07/08/2010 OM (osteomyelitis) ([facility]) 04/03/2010 Osteomyelitis of fifth toe of right foot ([facility]) 01/23/2020 PAC (premature atrial contraction) 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 cardiac pacemaker 09/22/2019 Namshi dual-chamber pacemaker system; indication: symptomatic bradycardia due to sinus node dysfunctio n; system will be MRI conditional after 6 weeks post implant Psoriasis and similar disorders arthritis PSORIATIC ARTHRITIS 09/29/2006 PVC (premature ventricular contraction) Sinus node dysfunction ([facility]) 09/22/2019 Unspecified essential hypertension Essential hypertension Unspecified hypothyroidism Urethral stricture 04/04/2012 Urinary retention 03/16/2013 Vasculitis ([facility]) 04/01/2017 Current Outpatient Medications Medication Sig levothyroxine [...] eyes one day prior to eye injection. [place]-3 Fatty Acids (FISH OIL) 500 mg ca [...] content not included)... 08-05-2022 History of Present [facility] illness Narrative FOLLOW UP PODIATRIC OFFICE [...] (H) 4.3 - 5.6 % Final Comment: [place] Diabetes Association guidelines indicate that patients with HgbA1c in the range 5.7-6.4% are at increased risk for development of diabetes, and intervention by lifestyle modification m ay be beneficial. HgbA1c greater or equal to 6.5% is considered diagnostic o f diabetes. 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 ([facility]) 04/04/2021 Esophageal reflux Hemorrhage of rectum and anus History of prediabetes 08/05/2016 Hyperlipidemia Hypertrophy of prostate with urinary obstruction and other lower urinary tract symptoms (LUTS) 03/19/2006 HYPERURICEMIA 09/29/2006 Idiopathic peripheral neuropathy 0 Internal hemorrhoids without mention of complication Interstitial lung disease ([facility]) 7 Mixed hyperlipidemia Hyperlipidemia 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 07/08/2010 OM (osteomyelitis) ([facility]) 04/03/2010 Osteomyelitis of fifth toe of right foot ([facility]) 01/23/2020 PAC (premature atrial contraction) 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 cardiac pacemaker 09/22/2019 Namshi dual-chamb er pacemaker system; indication: symptomatic bradycardia due to sinus node dysfunction; system will be MRI conditional after 6 weeks post implant Psoriasis and similar disorders arthritis PSORIATIC ARTHRITIS 09/29/2006 PVC (premature ventricular contraction) Sinus node dysfunction ([facility]) 09/22/2019 Unspecified essential hypertension Essential hypertension Unspecified hypothyroidism Urethral stricture 04/04/2012 Urinary retention 03/16/2013 Vasculitis ([facility]) 04/01/2017 Current Outpatient Medications Medication Sig levothyroxine [...] eyes one day prior to eye injection. 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 Gentile [facility] BUNIONECTOMY, [place]-TYPE Right 2009 Right foot CARDIAC CATH 01/28/2011 normal LV systolic fxn; norm al LM, occluded LAD; LCX 50% ostial, mid 80%; left PDA 50% prox; RCA small nondominant with 70% ostial stenosis; SVG-PDA occluded; VIZCARRA Y graft to LAD and diagonal branch patent; [facility] Right 05/04/2014 RIGHT CAROTID CATARACT EXTRACTION HX Bilateral 2015 COLONOSCOPY FLX DX W/COLLJ SPEC WHEN PFR 08/10/2014 CORONARY ARTERY BYPASS GRAFT 06/06/1997 CABG 2 vessel: VIZCARRA Y graft to LAD and diagonal branch; [facility], Dr. Valenzuela ECHOCARDIOGRAM 02/18/2018 normal LV [...] of little toe, rig ht, subsequent encounter ([facility]) PLAN: Callus reduced to noted loca tions [...] migh t be different from the original. [facility] Notes Sorry about the delay in [...] migh t be different from the original. [facility] Notes Schedule appointment with or Niyah rhoades rding driving concerns. documented in this encounter 06-24-2022 Note HNO ID: [id number] [facility] Author: Aracelis Aceves Brandywine Service: ? Author Type: Physician Type: Progress [...] (H) 4.3 - 5.6 % Final Comment: [place] Diabetes Association guidelines indicate that patients with [...] CAD (coronary artery disease) two-vessel CABG 1996 ([facility]); PCI/stent LCX 2010 - Chronic kidney [...] o f complication - Interstitial lung disease ([facility]) 017 - Mixed hyperlipidemia Hyperlipidemia - 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 07/08/2010 - OM (osteomyelitis) ([facility]) 04/03/2010 - Osteomyelitis of fifth toe of right fo ot ([facility]) 01/23/2020 - PAC (premature atrial contraction) - 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[facility] 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 - Presence of cardiac pacemaker 09/22/20 19 [place] Ondax dual-chamber pacemaker system; indication: symptomatic bradycardia due to sinus node dysfunctio n; system will be MRI conditional after 6 weeks post implant - Psoriasis and similar disorders arthritis - PSORIATIC ARTHRITIS 09/29/2006 - PVC (premature ventricular contraction ) - Sinus node dysfunction ([facility]) 09/22/2019 - Unspecified essential hypertension Essential hypertension - Unspecified hypothyroidism - Urethral stricture 04/04/2012 - Urinary retention 03/16/2013 - Vasculitis ([facility]) 04/01/2017 Current Outpatient Medications Medication Sig - [...] one day prior to eye injection. - [place]-3 Fatty Acids (FISH OIL) 500 mg cap [...] content not included)... 06-24-2022 Note HNO ID: [id number] [facility] Author: Luh Garcia LPN Br[place]wine Service: ? Author Type: LICENSED NURSE Type: [...] Aracelis Aceves - 2 1:43 PM EDT [facility] Continue with hammertoe pad Continue with lotion to feet F/u in 5-6 weeks for callus documented in this encounter 06-24-2022 History of Present [facility] illness Narrative FOLLOW UP PODIATRIC OFFICE [...] (H) 4.3 - 5.6 % Final Comment: [place] Diabetes Association guidelines indicate that patients with [...] CAD (coronary artery disease) two-vessel CABG 1996 ([facility]); PCI/stent LCX 2010 Chronic kidney disease, stage 3 (modera te) 08/11/2016 CKD (chronic kidney disease) stage 3, G FR 30-59 ml/min ([facility]) 08/11/2016 Closed fracture of metatarsal bone(s) Cognitive disorder 08/12/2015 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 ([facility]) 04/04/2021 Esophageal reflux Hemorrhage of rectum and anus History of prediabetes 08/05/2016 Hyperlipidemia Hypertrophy of prostate wit h urinary obstruction and other lower urinary tract symptoms (LUTS) 03/19/2006 HYPERURICEMIA 09/29/2006 Idiopathic peripheral neuropathy 03/28/20 10 Internal hemorrhoids without mention of complication Interstitial lung disease ([facility]) 05/18/20 17 Mixed hyperlipidemia Hyperlipidemia Occlusion and stenosis of c arotid artery without mention of cerebral infarction 07/08/2010 OM (osteomyelitis) ([facility]) 04/03/2010 Osteomyelitis of fifth toe of right anthony t ([facility]) 01/23/2020 PAC (premature atrial contraction) 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 cardiac pacemaker 9 Namshi dual-chamb er pacemaker system; indication: symptomatic bradycardia due to sinus node dysfunction; system will be MRI conditional after 6 weeks post implant Psoriasis and similar disorders arthritis PSORIATIC ARTHRITIS 09/29/2006 PVC (premature ventricular contraction) Sinus node dysfunction ([facility]) 09/22/2019 Unspecified essential hypertension Essential hypertension Unspecified hypothyroidism Urethral stricture 04/04/2012 Urinary retention 03/16/2013 Vasculitis ([facility]) 04/01/2017 Current Outpatient Medications Medication Sig lisinopril [...] eyes one day prior to eye injection. 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 Gentile [facility] BUNIONECTOMY, [place]US-TYPE Right 2009 Right foot CARDIAC CATH 01/28/2011 normal LV systolic fxn; norm al LM, occluded LAD; LCX 50% ostial, mid 80%; left PDA 50% prox; RCA small nondominant with 70% ostial stenosis; SVG-PDA occluded; VIZCARRA Y graft to LAD and diagonal branch patent; CAROTID SURGERY Left 1997 CAROTID-[facility]-- left CAROTID SURGERY Right 05/04/2014 RIGHT CAROTID CATARACT EXTRACTION HX Bilateral 2016 COLONOSCOPY FLX DX W/COLLJ SPEC WHEN PF RMD 08/10/2014 CORONARY ARTERY BYPASS GRAFT 06/06/1997 CABG 2 vessel: VIZCARRA Y graft to LAD and diagonal branch; [facility], Dr. Valenzuela ECHOCARDIOGRAM 02/18/2018 normal LV [...] encounter diagno sis) Pad (peripheral artery disease) ([facility]) Hammer toes of both feet PLAN: Callus [...] in this encounter 06-04-2022 Note HNO ID: [id number] [facility] Author: Jason Snider MD Brandywine Service: ? Author Type: Physician Type: Progress [...] significant. He still lived alone with daily ENROBER. He still ken ve short distances and [...] Interstitial Lung Disease (Hcc) Bradycardia Atherosclerosis of [place] Coronary Arter y of [place] Heart Without Angina Pectoris Gout Presence of [...] one day prior to eye injection. - [place]-3 Fatty Acids (FISH OIL) 500 mg cap [...] content not included)... 06-03-2022 History of Present [facility] illness Narrative This note was created using BasicGov Systemsriter. Subjective Patient presents with: Follow Up Navid Cortes is a 86 year old male was here with his daughter for an earlier follow up. See My Chart message. Concerns were fatigue, digestive problems including fecal soiling. History is limited by ming santiago as patient indicated concerns were not significant. He still lived alone with daily ENROBER. He still drove short distances and still [...] Interstitial Lung Disease (Hcc) Bradycardia Atherosclerosis of [place] Co ronary Artery of [place] Heart Without Angina Pectoris Gout Presence of [...] eyes one day prior to eye injection. [place]-3 Fatty Acids (FISH OIL) 500 mg c [...] migh t be different from the original. [facility] Notes Patient's daughter calls and sets [...] in this encounter 05-13-2022 Note HNO ID: [id number] [facility] Author: Aracelis Aceves Brandywine Service: ? Author Type: Physician Type: Progress Notes Filed: 05/18/2022 7:52 AM Note Text: FOLLOW UP PODIATRIC OFFICE VISIT Chief Complaint: This 86 year old who pr esents for follow up:callus of both feet. Patient presents to clinic for follow-up callus. He is using hammertoe pad and wider new balance shoes . He has no issues Laundry Helper states he did bump his toenail and it is black. PAIN EVALUATION No data found in the last 1 encounters. Hemoglobin A1C Date Value Ref Range Status 08/12/2017 5.8 (H) 4.3 - 5.6 % Final Comment: [place] Diabetes Association guidelines indicate that patients with [...] CAD (coronary artery disease) two-vessel CABG 1996 ([facility]); PCI/stent LCX 2010 - Chronic kidney [...] o f complication - Interstitial lung disease ([facility]) 017 - Mixed hyperlipidemia Hyperlipidemia - 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 07/08/2010 - OM (osteomyelitis) ([facility]) 04/03/2010 - Osteomyelitis of fifth toe of right fo ot ([facility]) 01/23/2020 - PAC (premature atrial contraction) - 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[facility] 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 - Presence of cardiac pacemaker 09/22/20 19 Namshi dual-chamber pacemaker system; indication: symptomatic bradycardia due to sinus node dysfunctio n; system will be MRI conditional after 6 weeks post implant - Psoriasis and similar disorders arthritis - PSORIATIC ARTHRITIS 09/29/2006 - PVC (premature ventricular contraction ) - Sinus node dysfunction ([facility]) 09/22/2019 - Unspecified essential hypertension Essential hypertension - Unspecified hypothyroidism - Urethral stricture 04/04/2012 - Urinary retention 03/16/2013 - Vasculitis ([facility]) 04/01/2017 Current Outpatient Medications Medication Sig - [...] one day prior to eye injection. - [place]-3 Fatty Acids (FISH OIL) 500 mg cap [...] content not included)... 05-13-2022 Note HNO ID: [id number] [facility] Author: Madeleine Bojorquez Brandywine Service: ? Author Type: ? Type: Progress [...] Instructions Aracelis Aceves - 2:42 PM EDT [facility] Continue with lotion to feet and hammert oe pads Follow-up in 6 weeks documented in this encounter 05-13-2022 History of Present [facility] illness Narrative FOLLOW UP PODIATRIC OFFICE VISIT Chief Complaint: This 86 yea r old who presents for follow up:callus of both feet. Patient presents to clinic f or follow-up callus. He is using hammertoe pad and wider new balance shoes . He has no issues Laundry Helper states he did bump his toenail and it is black. PAIN EVALUATION No data found in the last 1 encounters. 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 ([facility]) 04/04/2021 Esophageal reflux Hemorrhage of rectum and anus History of prediabetes 08/05/2016 Hyperlipidemia Hypertrophy of prostate wit h urinary obstruction and other lower urinary tract symptoms (LUTS) 03/19/2006 HYPERURICEMIA 09/29/2006 Idiopathic peripheral neuropathy 03/28/20 10 Internal hemorrhoids without mention of complication Interstitial lung disease ([facility]) 05/18/20 17 Mixed hyperlipidemia Hyperlipidemia Occlusion and stenosis of c arotid artery without mention of cerebral infarction 07/08/2010 OM (osteomyelitis) ([facility]) 04/03/2010 Osteomyelitis of fifth toe of right anthony t ([facility]) 01/23/2020 PAC (premature atrial contraction) 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 cardiac pacemaker 9 Namshi dual-chamb er pacemaker system; indication: symptomatic bradycardia [...] eyes one day prior to eye injection. 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 Gentile [facility] BUNIONECTOMY, [place]-TYPE Right 2009 Right foot CARDIAC CATH 01/28/2011 normal LV systolic fxn; norm al LM, occluded LAD; LCX 50% ostial, mid 80%; left PDA 50% prox; RCA small nondominant with 70% ostial stenosis; SVG-PDA occluded; VIZCARRA Y graft to LAD and diagonal branch patent; CAROTID SURGERY Left 1997 CAROTID-[facility]-- left CAROTID SURGERY Right 05/04/2014 RIGHT CAROTID CATARACT EXTRACTION HX Bilateral 2016 COLONOSCOPY FLX DX W/COLLJ SPEC WHEN PF RMD 08/10/2014 CORONARY ARTERY BYPASS GRAFT 06/06/1997 CABG 2 vessel: VIZCARRA Y graft to LAD and diagonal branch; [facility], Dr. Valenzuela ECHOCARDIOGRAM 02/18/2018 normal LV [...] r diagnosis) (I73.9) PAD (peripheral artery disease) ([facility]) (M20.41, M20.42) Hammer toes of both fee t (B35.1) Onychomycosis (S98.131D) Amputation of little toe, rig ht, subsequent encounter ([facility]) PLAN: 1. Callus to b/l feet reduce [...] in this encounter 04-01-2022 Note HNO ID: [id number] [facility] Author: Aracelis Aceves [place] Service: ? Author Type: Physician Type: Progress [...] (H) 4.3 - 5.6 % Final Comment: [place] Diabetes Association guidelines indicate that patients with [...] CAD (coronary artery disease) two-vessel CABG 1996 ([facility]); PCI/stent LCX 2010 - Chronic kidney [...] o f complication - Interstitial lung disease ([facility]) 017 - Mixed hyperlipidemia Hyperlipidemia - 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 07/08/2010 - OM (osteomyelitis) ([facility]) 04/03/2010 - Osteomyelitis of fifth toe of right fo ot ([facility]) 01/23/2020 - PAC (premature atrial contraction) - 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[facility] 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 - Presence of cardiac pacemaker 09/22/20 19 [employer] dual-chamber pacemaker system; indication: symptomatic bradycardia due to sinus node dysfunctio n; system will be MRI conditional after 6 weeks post implant - Psoriasis and similar disorders arthritis - PSORIATIC ARTHRITIS 09/29/2006 - PVC (premature ventricular contraction ) - Sinus node dysfunction ([facility]) 09/22/2019 - Unspecified essential hypertension Essential hypertension - Unspecified hypothyroidism - Urethral stricture 04/04/2012 - Urinary retention 03/16/2013 - Vasculitis ([facility]) 04/01/2017 Current Outpatient Medications Medication Sig - [...] one day prior to eye injection. - [place]-3 Fatty Acids (FISH OIL) 500 mg cap [...] not included )... 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 ([facility]) 04/04/2021 Esophageal reflux Hemorrhage of rectum and anus History of prediabetes 08/05/2016 Hyperlipidemia Hypertrophy of prostate wit h urinary obstruction and other lower urinary tract symptoms (LUTS) 03/19/2006 HYPERURICEMIA 09/29/2006 Idiopathic peripheral neuropathy 03/28/20 10 Internal hemorrhoids without mention of complication Interstitial lung disease ([facility]) 05/18/20 17 Mixed hyperlipidemia Hyperlipidemia Occlusion and stenosis of c arotid artery without mention of cerebral infarction 07/08/2010 OM (osteomyelitis) ([facility]) 04/03/2010 Osteomyelitis of fifth toe of right anthony t ([facility]) 01/23/2020 PAC (premature atrial contraction) 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 cardiac pacemaker 9 Namshi dual-chamb er pacemaker system; indication: symptomatic bradycardia due to sinus node dysfunction; system will be MRI conditional after 6 weeks post implant Psoriasis and similar disorders arthritis PSORIATIC ARTHRITIS 09/29/2006 PVC (premature ventricular contraction) Sinus node dysfunction ([facility]) 09/22/2019 Unspecified essential hypertension Essential hypertension Unspecified hypothyroidism Urethral stricture 04/04/2012 Urinary retention 03/16/2013 Vasculitis ([facility]) 04/01/2017 Current Outpatient Medications Medication Sig donepezil [...] eyes one day prior to eye injection. 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 Gentile [facility] BUNIONECTOMY, [place]-TYPE Right 2009 Right foot CARDIAC [...] Y graft to LAD and diagonal branch; [facility], Dr. Valenzuela ECHOCARDIOGRAM 02/18/2018 normal LV [...] in this encounter 03-31-2022 Note HNO ID: [id number] [facility] Author: Kaylah Delgado RN [place] Service: ? Author Type: ? Type: Progress [...] note is d ifferent from the original. [facility] Notes Daughter called and states p [...] in this encounter 02-18-2022 Note HNO ID: [id number] [facility] Author: Aracelis Aceves [place] Service: ? 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 ([facility]) 04/04/2021 - Esophageal reflux - Hemorrhage of rectum and anus - History of prediabetes 08/05/2016 - Hyperlipidemia - Hypertrophy of prostate with urinary o bstruction and other lower urinary tract symptoms (LUTS) 03/19/2006 - HYPERURICEMIA 09/29/2006 - Idiopathic peripheral neuropathy 010 - Internal hemorrhoids without mention o f complication - Interstitial lung disease ([facility]) 017 - Mixed hyperlipidemia Hyperlipidemia - 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 07/08/2010 - OM (osteomyelitis) ([facility]) 04/03/2010 - Osteomyelitis of fifth toe of right fo ot ([facility]) 01/23/2020 - PAC (premature atrial contraction) - 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[facility] 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 - Presence of cardiac pacemaker 09/22/20 19 Namshi dual-chamber pacemaker system; indication: symptomatic bradycardia due to sinus node dysfunctio n; system will be MRI conditional after 6 weeks post implant - Psoriasis and similar disorders arthritis - PSORIATIC ARTHRITIS 09/29/2006 - PVC (premature ventricular contraction ) - Sinus node dysfunction ([facility]) 09/22/2019 - Unspecified essential hypertension Essential hypertension - Unspecified hypothyroidism - Urethral stricture 04/04/2012 - Urinary retention 03/16/2013 - Vasculitis ([facility]) 04/01/2017 Current Outpatient Medications Medication Sig - [...] one day prior to eye injection. - [place]-3 Fatty Acids (FISH OIL) 500 mg cap [...] content not included)... 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 ([facility]) 04/04/2021 Esophageal reflux Hemorrhage of rectum and anus History of prediabetes 08/05/2016 Hyperlipidemia Hypertrophy of prostate wit h urinary obstruction and other lower urinary tract symptoms (LUTS) 03/19/2006 HYPERURICEMIA 09/29/2006 Idiopathic peripheral neuropathy 03/28/20 10 Internal hemorrhoids without mention of complication Interstitial lung disease ([facility]) 05/18/20 17 Mixed hyperlipidemia Hyperlipidemia Occlusion and stenosis of c arotid artery without mention of cerebral infarction 07/08/2010 OM (osteomyelitis) ([facility]) 04/03/2010 Osteomyelitis of fifth toe of right anthony t ([facility]) 01/23/2020 PAC (premature atrial contraction) 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 Gentile [facility] BUNIONECTOMY, [place]-TYPE Right 2009 Right foot CARDIAC CATH 01/28/2011 normal LV systolic fxn; norm al LM, occluded LAD; LCX 50% ostial, mid 80%; left PDA 50% prox; RCA small nondominant with 70% ostial stenosis; SVG-PDA occluded; VIZCARRA Y graft to LAD and diagonal branch patent; [facility] Right 05/04/2014 RIGHT CAROTID CATARACT EXTRACTION HX Bilateral 2015 COLONOSCOPY FLX DX W/COLLJ SPEC WHEN PF RMD 08/10/2014 CORONARY ARTERY BYPASS GRAFT 06/06/1997 CABG 2 vessel: VIZCARRA Y graft to LAD and diagonal branch; [facility], Dr. Valenzuela ECHOCARDIOGRAM 02/18/2018 normal LV [...] ter diagnosis) Hyperkeratosis Pad (peripheral artery disease) ([facility]) PLAN: Callus lightly debrided toda y to [...] in this encounter 02-17-2022 Note HNO ID: [id number] [facility] Author: Aleida Moser MA [place] Service: ? Author Type: Manager Inventory Control Type: Progress Notes Filed: 02/18/2022 12:24 PM Note Text: Patient presents with: Right Foot - Established Patient, hammer toes 02-17-2022 Instructions Aracelis Aceves - 2:51 PM EDT [facility] Continue with wide new balance tennis sh oes Continue with lotion to feet daily Wear hammertoe pad beneath the left 2nd toe Call if any issues arise Follow-up in 6 weeks documented in this encounter 02-17-2022 Miscellaneous Formatting of this note migh t be different from the original. [facility] Notes rec'd fax from [employer] requested MR. Brown has been sent to [facility] MR dept documented in this encounter 02-25-2022 Note HNO ID: [id number] [facility] Author: Jason Snider MD [place] Service: ? Author Type: Physician Type: Progress Notes Filed: 01/18/2022 2:21 PM Note Text: This note was created using [employer]. Subjective Navid Cortes is a 86 year old male her e with his daughter. He slipped on ice recently with no major injury. He just saw [facility] neurology FLOOR ASSOCIATE today, and memantine was increased to 10 mg daily. Daughter reported he still passed his vision exam for driving and patient still felt safe driving to familiar places. Home health aid hours have increased, and he had some home care 6 days per week. This improved medication adherence and nutritional quality. He still went for m eals at a [employer] restaurant when home health was not available, [...] Interstitial Lung Disease (Hcc) Bradycardia Atherosclerosis of [place] Coronary Arter y of [place] Heart Without Angina Pectoris Gout Presence of [...] one day prior to eye injection. - [place]-3 Fatty Acids (FISH OIL) 500 mg cap [...] as of this encounter (statuses as of 02/17/2022)[facility] 02-03-2020 History of Past illness Narrative [...] as of this encounter (statuses as of 02/18/2022)[facility] 02-03-2020 History of Past illness Narrative [...] as of this encounter (statuses as of 03/27/2022)[facility] 02-03-2020 History of Past illness Narrative [...] as of this encounter (statuses as of 04/01/2022)[facility] 02-03-2020 History of Past illness Narrative [...] as of this encounter (statuses as of 04/08/2022)[facility] 02-03-2020 History of Past illness Narrative [...] as of this encounter (statuses as of 05/15/2022)[facility] 02-03-2020 History of Past illness Narrative [...] as of this encounter (statuses as of 05/18/2022)[facility] 02-03-2020 History of Past illness Narrative [...] as of this encounter (statuses as of 06/04/2022)[facility] 02-03-2020 History of Past illness Narrative [...] as of this encounter (statuses as of 06/30/2022)[facility] 02-03-2020 History of Past illness Narrative [...] as of this encounter (statuses as of 07/15/2022)[facility] 02-03-2020 History of Past illness Narrative [...] as of this encounter (statuses as of 08/06/2022)[facility] 02-03-2020 History of Past illness Narrative [...] as of this encounter (statuses as of 08/16/2022)[facility] 02-03-2020 History of Past illness Narrative [...] as of this encounter (statuses as of 08/27/2022)[facility] 02-03-2020 History of Past illness Narrative [...] as of this encounter (statuses as of 08/27/2022)[facility] 02-03-2020 History of Past illness Narrative [...] as of this encounter (statuses as of 09/17/2022)[facility] 02-03-2020 History of Past illness Narrative [...] as of this encounter (statuses as of 09/18/2022)[facility] 02-03-2020 History of Past illness Narrative [...] as of this encounter (statuses as of 09/23/2022)[facility] 02-03-2020 History of Past illness Narrative [...] as of this encounter (statuses as of 09/25/2022)[facility] 02-03-2020 History of Past illness Narrative [...] as of this encounter (statuses as of 11/11/2022)[facility] 02-03-2020 History of Past illness Narrative [...] as of this encounter (statuses as of 11/11/2022)[facility] 02-03-2020 History of Past illness Narrative [...] as of this encounter (statuses as of 01/07/2023)[facility] Evaluation note Diagnosis Hammer toes of both feet- Primary Hyperkeratosis Acquired keratoderma PAD (peripheral artery disease) (HCC) Peripheral vascular disease, unspecified [facility] Diagnosis Mild cognitive disorder Unspecified persistent mental disorders due to conditions classified elsewhere BPH with obstruction/lower urinary tract symptoms Hypertrophy of prostate with urinary obs truction and other lower urinary tract symptoms (LUTS) Hyperuricemia Other abnormal blood chemistry documented in [facility] Diagnosis Hyperkeratosis- Primary Acquired keratoderma PAD (peripheral artery disease) (HCC) Peripheral vascular disease, unspecified Hammer toes of both feet documented in this encounterC[facility]Evaluation [facility] Diagnosis General weakness- Primary Other malaise and fatigue Diarrhea, unspecified type [facility]Evaluation [facility] Diagnosis Hyperkeratosis- Primary Acquired keratoderma PAD (peripheral artery disease) (HCC) Peripheral vascular disease, unspecified Hammer toes of both feet Onychomycosis Dermatophytosis of nail Amputation of little toe, right, subsequ ent encounter ([facility]) documented in this encounterC[facility]Evaluation [facility] Diagnosis Asthenia- Primary Other malaise and fatigue Essential hypertension Unspecified essential hypertension Dizziness Dizziness and giddiness 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) Alzheimer's disease Mild protein-calorie malnutrition (HCC) Malnutrition of mild degree Stage 3a chronic kidney disease ([facility]) Vasomotor rhinitis Allergic rhinitis, cause unspecified documented in [facility] encounterC[facility] ClinicEvaluation [facility] Diagnosis Hyperkeratosis- Primary Acquired keratoderma PAD (peripheral artery disease) (HCC) Peripheral vascular disease, unspecified Hammer toes of both feet documented in [facility] encounterC[facility] ClinicEvaluation [facility] Diagnosis Hyperkeratosis- Primary Acquired keratoderma Hammer toes of both feet Onychomycosis Dermatophytosis of nail Amputation of little toe, right, subsequ ent encounter ([facility]) documented in this encounterC[facility] ClinicEvaluation note Diagnosis [...] of little toe, right, subsequ ent encounter ([facility]) PAD (peripheral artery disease) ([facility]) Peripheral vascular disease, unspecified Hammer toes of both feet documented in [facility] encounterC[facility] ClinicEvaluation [facility] Diagnosis Injury to fingernail of right hand, init ial encounter- Primary [facility] Hyperkeratosis- Primary Acquired keratoderma Onychomycosis Dermatophytosis of nail Amputation of little toe, right, subsequ ent encounter (HCC) PAD (peripheral artery disease) ([facility]) Peripheral vascular disease, unspecified Hammer toes of both feet [facility] Summary Purpose Family History No Family History Records FoundNo Family History Records FoundNo Family History Records FoundNo Family History Records Found Advance Directives No Advanced Directives Records Found Documents on File Type Date Recorded 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 Team Members: Treatment Team: Attending Provider: Holland Ordonez MY CONDITI ON AT DISCHARGE: Good REASON I WAS IN THE (more content not included)... Additional Source Comments (unrecognized section and cont ent) No Status Records FoundNo Preg cuong Status Records FoundNo Status Records FoundNo Status Records Found INFORMATION SOURCE (unrecognized section and content) DATE CREATED AUTHOR AUTHOR'S ORGANIZ ATION 09/25/2019 [facility] DATE CREATED AUTHOR AUTHOR'S ORGANIZATIO N 09/29/2019 [facility] DATE CREATED AUTHOR AUTHOR'S ORGANIZATIO N 12/18/2022 [facility] DATE CREATED AUTHOR AUTHOR'S ORGANIZATIO N 01/08/2023 [facility] wilcox Source Comments (unrecognized section [...] prosecute any alcohol or drug abuse patient. [facility] Hospital[facility] the event this information is protected by t cayla Federal Confidentiality of Alcohol and Drug Abuse Patient Records regulations: This information has been disclosed to you from records protected by Federal confid entiality rules ( The Federal rules restrict any use of th e information to criminally investigate or prosecute any alcohol or drug abuse maribel ent. [facility] HospitalIn the event this information is protected by the Federal Confidentiality of Alcohol and Drug Abuse Patient Records regulations: This inform ation has been disclosed to you from records protected by Federal confidentiality rul es ( The Federal rules restrict any use of the in formation to criminally investigate or prosecute any alcohol or drug abuse maribel ent. [facility] HospitalIn the event this information is protected by the Federal Confidentiality of Alcohol and Drug Abuse Patient Records regulations: This inform ation has been disclosed to you from records protected by Federal confidentiality rul es ( The Federal rules restrict any use of the in formation to criminally investigate or prosecute any alcohol or drug abuse maribel ent. [facility] HospitalIn the event this information is protected by the Federal Confidentiality of Alcohol and Drug Abuse Patient Records regulations: This inform ation has been disclosed to you from records protected by Federal confidentiality rul es ( The Federal rules restrict any use of the in formation to criminally investigate or prosecute any alcohol or drug abuse maribel ent. [facility] HospitalIn the event this information is protected by the Federal Confidentiality of Alcohol and Drug Abuse Patient Records regulations: This inform ation has been disclosed to you from records protected by Federal confidentiality rul es ( The Federal rules restrict any use of the in formation to criminally investigate or prosecute any alcohol or drug abuse maribel ent. [facility]In the event this information is protected by the Federal Confidentiality of Alcohol and Drug Abuse Patient Records regulations: This inform ation has been disclosed to you from records protected by Federal confidentiality rul es ( The Federal rules restrict any use of the in formation to criminally investigate or prosecute any alcohol or drug abuse maribel ent. [facility] HospitalIn the event this information is protected by the Federal Confidentiality of Alcohol and Drug Abuse Patient Records regulations: This inform ation has been disclosed to you from records protected by Federal confidentiality rul es ( The Federal rules restrict any use of the in formation to criminally investigate or prosecute any alcohol or drug abuse maribel ent. [facility] HospitalIn the event this information is protected by the Federal Confidentiality of Alcohol and Drug Abuse Patient Records regulations: This inform ation has been disclosed to you from records protected by Federal confidentiality rul es ( The Federal rules restrict any use of the in formation to criminally investigate or prosecute any alcohol or drug abuse maribel ent. [facility] HospitalIn the event this information is protected by the Federal Confidentiality of Alcohol and Drug Abuse Patient Records regulations: This inform ation has been disclosed to you from records protected by Federal confidentiality rul es ( The Federal rules restrict any use of the in formation to criminally investigate or prosecute any alcohol or drug abuse maribel ent. [facility] HospitalIn the event this information is protected by the Federal Confidentiality of Alcohol and Drug Abuse Patient Records regulations: This inform ation has been disclosed to you from records protected by Federal confidentiality rul es ( The Federal rules restrict any use of the in formation to criminally investigate or prosecute any alcohol or drug abuse maribel ent. [facility] the event this information is protected by the Federal Confidentiality of Alcohol and Drug Abuse Patient Records regulations: This inform ation has been disclosed to you from records protected by Federal confidentiality rul es ( The Federal rules restrict any use of the in formation to criminally investigate or prosecute any alcohol or drug abuse maribel ent. [facility] the event this information is protected by the Federal Confidentiality of Alcohol and Drug Abuse Patient Records regulations: This inform ation has been disclosed to you from records protected by Federal confidentiality rul es ( The Federal rules restrict any use of the in formation to criminally investigate or prosecute any alcohol or drug abuse maribel ent. [facility] the event this information is protected by the Federal Confidentiality of Alcohol and Drug Abuse Patient Records regulations: This inform ation has been disclosed to you from records protected by Federal confidentiality rul es ( The Federal rules restrict any use of the in formation to criminally investigate or prosecute any alcohol or drug abuse maribel ent. [facility]In the event this information is protected by the Federal Confidentiality of Alcohol and Drug Abuse Patient Records regulations: This inform ation has been disclosed to you from records protected by Federal confidentiality rul es ( The Federal rules restrict any use of the in formation to criminally investigate or prosecute any alcohol or drug abuse maribel ent. [facility]In the event this information is protected by the Federal Confidentiality of Alcohol and Drug Abuse Patient Records regulations: This inform ation has been disclosed to you from records protected by Federal confidentiality rul es ( The Federal rules restrict any use of the in formation to criminally investigate or prosecute any alcohol or drug abuse maribel ent. [facility] the event this information is protected by the Federal Confidentiality of Alcohol and Drug Abuse Patient Records regulations: This inform ation has been disclosed to you from records protected by Federal confidentiality rul es ( The Federal rules restrict any use of the in formation to criminally investigate or prosecute any alcohol or drug abuse maribel ent. [facility]In the event this information is protected by the Federal Confidentiality of Alcohol and Drug Abuse Patient Records regulations: This inform ation has been disclosed to you from records protected by Federal confidentiality rul es ( The Federal rules restrict any use of the in formation to criminally investigate or prosecute any alcohol or drug abuse maribel ent. [facility]In the event this information is protected by the Federal Confidentiality of Alcohol and Drug Abuse Patient Records regulations: This inform ation has been disclosed to you from records protected by Federal confidentiality rul es ( The Federal rules restrict any use of the in formation to criminally investigate or prosecute any alcohol or drug abuse maribel ent. [facility]In the event this information is protected by the Federal Confidentiality of Alcohol and Drug Abuse Patient Records regulations: This inform ation has been disclosed to you from records protected by Federal confidentiality rul es ( The Federal rules restrict any use of the in formation to criminally investigate or prosecute any alcohol or drug abuse maribel ent. [facility]In the event this information is protected by the Federal Confidentiality of Alcohol and Drug Abuse Patient Records regulations: This inform ation has been disclosed to you from records protected by Federal confidentiality rul es ( The Federal rules restrict any use of the in formation to criminally investigate or prosecute any alcohol or drug abuse maribel ent. [facility]In the event this information is protected by the Federal Confidentiality of Alcohol and Drug Abuse Patient Records regulations: This inform ation has been disclosed to you from records protected by Federal confidentiality rul es ( The Federal rules restrict any use of the in formation to criminally investigate or prosecute any alcohol or drug abuse maribel ent. [facility]In the event this information is protected by the Federal Confidentiality of Alcohol and Drug Abuse Patient Records regulations: This inform ation has been disclosed to you from records protected by Federal confidentiality rul es ( The Federal rules restrict any use of the in formation to criminally investigate or prosecute any alcohol or drug abuse maribel [facility] Reason for Visit (unrecognized section a [...] Procedures NEW RS OT 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, CUSTOMER OPERATIONS MANAGER OT/L [address] [place] [address] Referral ID Status Reason Start Date Expiration Date Visits V isits Requested Authorized [id number] Authorized 11/22/2021 11/21/2022 99 99 Reason Comments Established Patient Callous Follow Up Reason Comments 4 month f/u Reason Onset Date Comments Refill Request 09/22/2022 Reason Comments Results Reason Comments Established Patient Follow Up Pain Reason Comments Finger Injury left hand middle fingernail ripped x this afternoon Care Teams (unrecognized section and con tent) 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 Relationship Specialty Start Date End Date Jason Snider MD PCP - General Internal Medicine 08/10/16 [address] [facility] [place] [address] Augusto Tran Specialty Motor Vehicle Examiner Cardiology 08/25/19 [address] [place] [address] Kenan Mari Specialty Motor Vehicle Examiner Pulmonary Disease 08/25/19 [address] [place] [address] Lorne Andrew Jr., Specialty Motor Vehicle Examiner Ophthalmology 08/25/19 DO [address] [place] [address] Aracelis Aceves Specialty Motor Vehicle Examiner Podiatry 08/25/19 [address] [facility] [place] [address] Claude He Specialty Motor Vehicle Examiner Cerebrovascular 08/25/19 Dariusz [address] [place] [address] 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 Relationship Specialty Start Date End Date Jason Snider MD PCP - General Internal Medicine 08/10/16 [address] [facility] [place] [address] Augusto Tran Specialty Motor Vehicle Examiner Cardiology 08/25/19 [address] [place] [address] Kenan Mari Specialty Motor Vehicle Examiner Pulmonary Disease 08/25/19 [address] [place] [address] Lorne Andrew Jr., Specialty Motor Vehicle Examiner Ophthalmology 08/25/19 DO [address] [place] [address] Aracelis Aceves Specialty Motor Vehicle Examiner Podiatry 08/25/19 [address] [place] [address] Claude He Specialty Motor Vehicle Examiner Cerebrovascular 08/25/19 Dariusz [address] [place] [address] 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 Relationship Specialty Start Date End Date Jason Snider MD PCP - General Internal Medicine 08/10/16 [address] [facility] [place] [address] Augusto Tran Specialty Motor Vehicle Examiner Cardiology 08/25/19 [address] [place] [address] Kenan Mari Specialty Motor Vehicle Examiner Pulmonary Disease 08/25/19 [address] [facility] [place] [address] Lorne Andrew Jr., Specialty Motor Vehicle Examiner Ophthalmology 08/25/19 DO [address] [place] [address] Aracelis Aceves Specialty Motor Vehicle Examiner Podiatry 08/25/19 [address] [place] [address] Claude He Specialty Motor Vehicle Examiner Cerebrovascular 08/25/19 Dariusz [address] [place] [address] 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 Relationship Specialty Start Date End Date Jason Snider MD PCP - General Internal Medicine 08/10/16 [address] [facility] [place] [address] Augusto Tran Specialty Motor Vehicle Examiner Cardiology 08/25/19 [address] [place] [address] Kenan Mari Specialty Motor Vehicle Examiner Pulmonary Disease 08/25/19 [address] [place] [address] Lorne Andrew Jr., Specialty Motor Vehicle Examiner Ophthalmology 08/25/19 DO [address] [place] [address] Aracelis Aceves Specialty Motor Vehicle Examiner Podiatry 08/25/19 [address] [place] [place] [address] Claude He Specialty Motor Vehicle Examiner Cerebrovascular 08/25/19 Dariusz [address] [place] [address] 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 Relationship Specialty Start Date End Date Jason Snider MD PCP - General Internal Medicine 08/10/[address] [place] [address] Augusto Tran Specialty Motor Vehicle Examiner Cardiology 08/25/19 [address] [place] [address] Kenan Mari Specialty Motor Vehicle Examiner Pulmonary Disease 08/25/19 [address] [place] [address] Lorne Andrew Jr., Specialty Motor Vehicle Examiner Ophthalmology 08/25/19 DO [address] [place] [address] Aracelis Aceves Specialty Motor Vehicle Examiner Podiatry 08/25/19 [address] [facility] [place] [address] Claude He Specialty Motor Vehicle Examiner Cerebrovascular 08/25/19 Dariusz [address] [place] [address] 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 Relationship Specialty Start Date End Date Jason Snider MD PCP - General Internal Medicine 08/10/16 [address] [facility] [place] [address] Augusto Tran Specialty Motor Vehicle Examiner Cardiology 08/25/19 [address] [place] [address] Kenan Mari Specialty Motor Vehicle Examiner Pulmonary Disease 08/25/19 [address] [place] [address] Lorne Andrew Jr., Specialty Motor Vehicle Examiner Ophthalmology 08/25/19 DO [address] [place] [address] Aracelis Aceves Specialty Motor Vehicle Examiner Podiatry 08/25/19 [address] [facility] [place] [address] Claude He Specialty Motor Vehicle Examiner Cerebrovascular 08/25/19 Dariusz [address] [place] [address] 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 Relationship Specialty Start Date End Date Jason Snider MD PCP - General Internal Medicine 08/10/16 [address] [facility] [place] [address] Augusto Tran Specialty Motor Vehicle Examiner Cardiology 08/25/19 [address] [place] [address] Kenan Mari Specialty Motor Vehicle Examiner Pulmonary Disease 08/25/19 [address] [place] [address] Lorne Andrew Jr., Specialty Motor Vehicle Examiner Ophthalmology 08/25/19 DO [address] [place] [address] Aracelis Aceves Specialty Motor Vehicle Examiner Podiatry 08/25/19 [address] [facility] [place] [address] Claude He Specialty Motor Vehicle Examiner Cerebrovascular 08/25/19 Dariusz [address] [place] [address] 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 Relationship Specialty Start Date End Date Jason Snider MD PCP - General Internal Medicine 08/10/16 [address] [facility] [place] [address] Augusto Tran Specialty Motor Vehicle Examiner Cardiology 08/25/19 [address] [place] [address] Kenan Mari Specialty Motor Vehicle Examiner Pulmonary Disease 08/25/19 [address] [place] [address] Lorne Andrew Jr., Specialty Motor Vehicle Examiner Ophthalmology 08/25/19 DO [address] [place] [address] Aracelis Aceves Specialty Motor Vehicle Examiner Podiatry 08/25/19 [address] [place] [place] [address] Claude He Specialty Motor Vehicle Examiner Cerebrovascular 08/25/19 Dariusz [address] [place] [address] 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 Relationship Specialty Start Date End Date Jason Snider MD PCP - General Internal Medicine 08/10/16 [address] [facility] [place] [address] Augusto Tran Specialty Motor Vehicle Examiner Cardiology 08/25/19 [address] [place] [address] Kenan Mari Specialty Motor Vehicle Examiner Pulmonary Disease 08/25/19 [address] [place] [address] Lorne Andrew Jr., Specialty Motor Vehicle Examiner Ophthalmology 08/25/19 DO [address] [place] [address] Aracelis Aceves Specialty Motor Vehicle Examiner Podiatry 08/25/19 [address] [place] [address] Claude He Specialty Motor Vehicle Examiner Cerebrovascular 08/25/19 Dariusz [address] [place] [address] 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 Relationship Specialty Start Date End Date Jason Snider MD PCP - General Internal Medicine 08/10/16 [address] [facility] [place] [address] Augusto Tran Specialty Motor Vehicle Examiner Cardiology 08/25/19 [address] [place] [address] Kenan Mari Specialty Motor Vehicle Examiner Pulmonary Disease 08/25/19 [address] [address] Lorne Andrew Jr., Specialty Motor Vehicle Examiner Ophthalmology 08/25/19 DO [address] [place] [address] Aracelis Aceves Specialty Motor Vehicle Examiner Podiatry 08/25/19 [address] [facility] [place] [address] Claude He Specialty Motor Vehicle Examiner Cerebrovascular 08/25/19 Dariusz [address] [place] [address] 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 Relationship Specialty Start Date End Date Jason Snider MD PCP - General Internal Medicine 08/10/16 [address] [facility] [place] [address] Augusto Tran Specialty Motor Vehicle Examiner Cardiology 08/25/19 [address] [place] [address] Kenan Mari Specialty Motor Vehicle Examiner Pulmonary Disease 08/25/19 [address] [facility] [place] [address] Lorne Andrew Jr., Specialty Motor Vehicle Examiner Ophthalmology 08/25/19 DO [address] [place] [address] Aracelis Aceves Specialty Motor Vehicle Examiner Podiatry 08/25/19 [address] [facility] [place] [address] Claude He Specialty Motor Vehicle Examiner Cerebrovascular 08/25/19 Dariusz [address] [place] [address] 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 Relationship Specialty Start Date End Date Jason Snider MD PCP - General Internal Medicine 08/10/16 [address] [facility] [place] [address] Augusto Tran Specialty Motor Vehicle Examiner Cardiology 08/25/19 [address] [place] [address] Kenan Mari Specialty Motor Vehicle Examiner Pulmonary Disease 08/25/19 [address] [place] [address] Lorne Andrew Jr., Specialty Motor Vehicle Examiner Ophthalmology 08/25/19 DO [address] [place] [address] Aracelis Aceves Specialty Motor Vehicle Examiner Podiatry 08/25/19 [address] [facility] [place] [address] Claude He Specialty Motor Vehicle Examiner Cerebrovascular 08/25/19 Dariusz [address] [place] [address] 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 Relationship Specialty Start Date End Date Jason Snider MD PCP - General Internal Medicine 08/10/16 [address] [facility] [place] [address] Augusto Tran Specialty Motor Vehicle Examiner Cardiology 08/25/19 [address] [place] [address] Kenan Mari Specialty Motor Vehicle Examiner Pulmonary Disease 08/25/19 [address] [place] [address] Lorne Andrew Jr., Specialty Motor Vehicle Examiner Ophthalmology 08/25/19 DO [address] [place] [address] Aracelis Aceves Specialty Motor Vehicle Examiner Podiatry 08/25/19 [address] [facility] [place] [address] Claude He Specialty Motor Vehicle Examiner Cerebrovascular 08/25/19 Dariusz [address] [place] [address] 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 Relationship Specialty Start Date End Date Jason Snider MD PCP - General Internal Medicine 08/10/16 [address] [facility] [place] [address] Augusto Tran Specialty Motor Vehicle Examiner Cardiology 08/25/19 [address] [facility] [address] [place] [address] Kenan Mari Specialty Motor Vehicle Examiner Pulmonary Disease 08/25/19 [address] [facility] [place] [address] Lorne Andrew Jr., Specialty Motor Vehicle Examiner Ophthalmology 08/25/19 DO [address] [place] [address] Aracelis Aceves Specialty Motor Vehicle Examiner Podiatry 08/25/19 [address] [place] [place] [address] Claude He Specialty Motor Vehicle Examiner Cerebrovascular 08/25/19 Dariusz [address] [place] [address] 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 Relationship Specialty Start Date End Date Jason Snider MD PCP - General Internal Medicine 08/10/16 [address] [facility] [place] [address] Augusto Tran Specialty Motor Vehicle Examiner Cardiology 08/25/19 [address] [place] [address] Kenan Mari Specialty Motor Vehicle Examiner Pulmonary Disease 08/25/19 [address] [place] [address] Lorne Andrew Jr., Specialty Motor Vehicle Examiner Ophthalmology 08/25/19 DO [address] [place] [address] Aracelis Aceves Specialty Motor Vehicle Examiner Podiatry 08/25/19 [address] [facility] [place] [address] Claude He Specialty Motor Vehicle Examiner Cerebrovascular 08/25/19 Dariusz [address] [place] [address] 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 Relationship Specialty Start Date End Date Jason Snider MD PCP - General Internal Medicine 08/10/[address] [place] [address] Augusto Tran Specialty Motor Vehicle Examiner Cardiology 08/25/19 [address] [place] [address] Kenan Mari Specialty Motor Vehicle Examiner Pulmonary Disease 08/25/19 [address] [place] [address] Lorne Andrew Jr., Specialty Motor Vehicle Examiner Ophthalmology 08/25/19 DO [address] [place] [address] Aracelis Aceves Specialty Motor Vehicle Examiner Podiatry 08/25/19 [address] [facility] [place] [address] Claude He Specialty Motor Vehicle Examiner Cerebrovascular 08/25/19 MD Dariusz [address] [place] [address] 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 Relationship Specialty Start Date End Date Jason Snider MD PCP - General Internal Medicine 08/10/16 [address] [facility] [place] [address] Augusto Tran Specialty Motor Vehicle Examiner Cardiology 08/25/19 [address] [place] [address] Kenan Mari Specialty Motor Vehicle Examiner Pulmonary Disease 08/25/19 [address] [place] [place] [address] Lorne Andrew Jr., Specialty Motor Vehicle Examiner Ophthalmology 08/25/19 DO [address] [place] [address] Aracelis Aceves Specialty Motor Vehicle Examiner Podiatry 08/25/19 [address] [place] [address] Harper Heh Specialty Motor Vehicle Examiner Cerebrovascular 08/25/19 MD Dariusz [address] [place] [address] 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 Relationship Specialty Start Date End Date Jason Snider MD PCP - General Internal Medicine 08/10/16 [address] [facility] [place] [address] Augusto Tran Specialty Motor Vehicle Examiner Cardiology 08/25/19 [address] [place] [address] Kenan Mari Specialty Motor Vehicle Examiner Pulmonary Disease 08/25/19 [address] [place] [address] Lorne Andrew Jr., Specialty Motor Vehicle Examiner Ophthalmology 08/25/19 DO [address] [place] [address] Aracelis Aceves Specialty Motor Vehicle Examiner Podiatry 08/25/19 [address] [place] [address] Claude He Specialty Motor Vehicle Examiner Cerebrovascular 08/25/19 MD Dariusz [address] [place] [address] FOR RECORDS PERTAINING TO PATIENTS [...] BE BASED ON THE PRIMARY CLINICAL RECORDS. [employer] provides no warranty or guarantee of the accuracy or completeness of information in this document.
[2023-02-14 18:31] LABS: Absolute Lymphocyte Count 1.07 X10^3/uL (0.83-4.51); Absolute Neutrophil Count 11.8 X10^3/uL (2.0-7.7); Basophil# 0.03 X10^3/uL; Basophil% 0.2 % (0-1); Eosinophil# 0.01 X10^3/uL; Eosinophils% 0.1 % (0-5); Hematocrit 41.4 % (40-54); Hemoglobin 13.5 g/dL (13.0-16.5); Lymphocyte # 1.07 X10^3/ul (0.83-4.51); Lymphocyte % 7.4 % (19-41); Mean Corp Hgb Conc 32.6 g/dL (32-36); Mean Corpuscular Hgb 30.6 pg (27.0-32.0); Mean Corpuscular Volume 93.9 fL (80-94); Mean Platelet Vol. 9.5 fl (6.2-12.0); Monocyte# 1.49 X10^3/uL; Monocyte% 10.3 % (0-10); NRBC Flagged by Analyzer 0 % (0-5); Neutrophil # 11.82 X10^3/uL (2.7-7.7); Neutrophil % 81.4 % (47-70); Platelet Count 218 K/mm3 (150-450); RBC Distribution Width CV 13.5 % (11.6-14.6); RBC Distribution Width SD 46.4 fl (35.1-43.9); Red Blood Count 4.41 M/mm3 (4.6-6.2); White Blood Count 14.5 K/mm3 (4.4-11.0)
[2023-02-14 18:56] LABS: ALB/GLOB Ratio 0.9 RATIO (0.9-2.4); AST(SGOT) 67 U/L (15-37); Alanine Aminotransfer ALT/SGPT 26 U/L (16-61); Albumin, Serum 3.3 g/dL (3.2-5.0); Alkaline Phosphatase 74 U/L (45-117); Anion Gap 7 (5-15); BUN 39 mg/dL (7-18); BUN/Creat Ratio 16.5 RATIO (10-20); Calcium,Total 10.3 mg/dL (8.5-10.1); Chloride 104 mmol/L (98-107); Creatinine, Serum 2.36 mg/dL (0.70-1.30); EST Glomerular Filtration Rate 28 mL/min (>60); Est Glom Filt Rate - Afr Amer 34 mL/min (>60); Globulin 3.8 g/dL (2.2-4.2); Glucose 120 mg/dL (74-106); Potassium 4.8 mmol/L (3.5-5.1); Protein, Total 7.1 g/dL (6.4-8.2); Sodium Level 137 mmol/L (136-145); Troponin-I HS 31 pg/mL (3.0-78.0)
[2023-02-14] MEDS: 0.9% Normal Saline 1,000 ML 999 ML IV (19:08)
--- NOTE | 2023-02-14 19:14 | CT_ITS ---
STUDY: CT ABDOMEN AND PELVIS WITHOUT CONTRAST REASON FOR EXAM: Male, 87 years old. Abdominal pain. RADIATION DOSAGE (If Supplied By Facility): CTDIvol = ( 38.69 ) mGy, DLP = ( 1255.42 ) mGycm TECHNIQUE: Transaxial images were obtained from the dome of the diaphragm to the symphysis pubis without oral contrast, and without intravenous contrast. Sagittal and coronal images were reconstructed. Individualized dose optimization techniques were used for this CT. COMPARISON: None. FINDINGS: Pulmonary fibrosis most marked on the right. There is left sided calcified pleural plaque. The visualized portions of the heart are within normal limits. Pacer leads are seen in the right heart. 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 Scattered calcified granulomata within the liver. There is no other mass. Normal gallbladder and extrahepatic biliary system. There are multiple benign calcified granulomata of the spleen. Normal pancreas. Normal bilateral adrenal glands. There is no exophytic cyst off the upper pole of the right kidney.. Normal left kidney. Normal visualized ureters. Stomach is nondistended but grossly normal. A fluid-filled nondilated small bowel loops without wall thickening. Normal colon. The appendix is visualized and appears normal. There is diffuse atherosclerotic calcification of the abdominal aorta, without a demonstrated aneurysm. Normal inferior vena cava. Normal retroperitoneum. Distended urinary bladder without mass or filling defect. Question TURP defect within the prostate. There are phleboliths in the pelvis. No pelvic lymphadenopathy. No free air or free fluid is seen within the peritoneal cavity. Normal abdominal wall. There are diffuse degenerative changes of the visualized lumbar spine. CT/Abdomen/Pelvis without Cont IMPRESSION: 1. Fluid-filled small bowel loops. The possibility of enteritis cannot BE ruled out. 2. Pulmonary fibrosis with calcified pleural plaque. The possibility of asbestos related pleural disease cannot be ruled out. 3. Evidence of old granulomatous disease. 4. Cardiac pacemaker. 5. Right renal cyst. 6. 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 There is no acute fracture or dislocation. Electronically Signed: Chano Hartley DO at 20:00 EDT Reading Location ID and State: [address] [place] [address] Tel [phone], Service support ,
[2023-02-14 19:48] VITALS: BP 127/7; PULSE 64; RESP 16; O2SAT 96
[2023-02-14 19:55] LABS: Bacteria 0 SEEN /hpf (None Seen); Mucous, Urine 0 SEEN /hpf (<or=2+)
[2023-02-14 19:59] LABS: Color, Urine Yellow (Yellow); Glucose, Dipstick Normal (Normal); Ketone-Dipstick Negative (Negative); Leukocyte Esterase-Dipstick 25 /ul (Negative); Nitrite-Dipstick Negative (Negative); Occult Blood-Urine 250 /ul (Negative); Protein-Dipstick 30 mg/dl (Negative); Specific Gravity, Urine 1.015 (1.002-1.030); Urine Bilirubin Dipstick Negative (Negative); Urine Clarity Clear (Clear); Urine Urobilinogen 1 mg/dl (Normal); Urine pH 6.5 (5.0 - 8.0)
[2023-02-14 20:26] LABS: Red Blood Cells-Urine 0-5 SEEN /hpf (0-5); White Blood Cells 0-5 SEEN /hpf (0-5)
[2023-02-14 20:27] LABS: Hyaline Cast 0-5 SEEN /lpf (0-5); Squamous Epithelial Cells - UA 0-5 SEEN /hpf (0-5)
[2023-02-14 20:39] VITALS: BP 124/71; PULSE 69; RESP 14; TEMP 36.8; O2SAT 96
[2023-02-14 21:04] LABS: Magnesium 2.2 mg/dL (1.6-2.6); Phosphorus 2.3 mg/dL (2.5-4.9)
--- NOTE | 2023-02-14 21:04 | HP.PCM_ITS ---
HPI - General General Date of Admission: 02/14/23 Date of Service: 02/14/23 Chief Complaint: Debility, weakness. HPI Narrative The patient is an 87 y/o M w/ PMHx: Chart reported Prediabetes, Chart reported Rheumatoid arthritis/Psoriatic arthritis, Dementia unclear type with unclear behavioral disturbance history, CKD stage III unclear subtype, CAD s/p PCI and CABG, Carotid disease, PAOD, BPH s/p TURP, Hx Sinus bradycardia s/p pacemaker p lacement, HTN, HLD, Interstital lung disease, Hypothyroidism who presents to the [facility] ED on 02/14/23 with history of increased confusion above his baseline dementia over the last week as well as generalized malaise and fatigue with groaning and admission of not feeling well but difficulty explaining further with no specific pain and no nausea or emesis but reported episodes of urinary and fecal incontinence prompt eventual ED evaluation. Daughter and patient deny any recent URI type symptoms. She does report that the stools have been loose. Upon further questioning patient reported abdominal discomfort which she initially reported may have been from abdominal cramping but unclear. She denie s him having any recent ill contacts but he does have visiting health care. Work-up in the ED included T98.3, heart 65, BP 121/63, respiratory rate 17, 94% on room air, CBC with WC 14.5, hemoglobin 13.5, platelet 218 with left shift, CMP with BUN/creatinine 39/2.36, glucose 120, calcium 10.3, AST/LT 67/26 otherwise hepatic profile not marked appearing, troponin 31, urinalysis with specific gravity 1.015, protein 30, occult blood 250, negative nitrite, leukocyte Estrace only 25 with pending urine RBC/WBC in urine bacteria but currently no obvious evidence of UTI chest x-ray with interval placement cardiac pacemaker with no acute cardiopulmonary findings, CT abdomen and pelvis with fluid-filled small loops of bowel possibly secondary to enteritis in the correct situation, pulmonary fibrosis with calcified pleural plaques, evidence of old granulomatous disease, cardiac pacemaker in place, right renal cyst, degenerative changes of the lumbar spine and hip with no acute fracture or dislocation, CT of the brain with chronic involutional changes with no acute evidence of intracranial or calvarial abnormality, rapid SARS COVID and influenza antigens negative, EKG []. In the ED patient ministered 1 L normal saline. [facility] Medical History Anal stenosis ANCA-positive vasculitis Atherosclerotic heart disease of viejas coronary artery without angina pectoris Benign essential HTN BPH (benign prostatic hyperplasia) Carotid artery disease Chronic gout Esophageal reflux Fatigue Hemorrhage of rectum and anus Hypothyroidism Internal hemorrhoids Interstitial lung disease Mild cognitive disorder Occlusion and stenosis of unspecified carotid artery OM (osteomyelitis) Prediabetes Presence of stent in coronary artery (~01/28/11) Psoriasis Pure hypercholesterolemia Rheumatoid arthritis Urethral stricture Home Medications allopurinol 300 mg tablet 300 mg PO DAILY GOUT 04/30/14 [History Last Taken 02/17/18] aspirin 81 mg chewable tablet 81 mg PO DAILY@0800 HEART 04/30/14 [History Last Taken 02/17/18] clopidogrel 75 mg tablet 75 mg PO DAILY ANTIPLATLET 04/30/14 [History Last Taken 02/17/18] loratadine 10 mg tablet 10 mg PO DAILY ALLGIES 04/30/14 [History Last Taken 02/17/18] multivitamin with folic acid 400 mcg tablet 1 tab PO DAILY SUPPLEMENT 04/30/14 [History Last Taken 02/17/18] omega-3 fatty acids-fish oil 340 mg-1,000 mg capsule 1 ea PO DAILY SUPPLEMENT 04/30/14 [History Last Taken 02/17/18] donepezil 10 mg tablet 10 mg PO QHS MEMORY 02/17/18 [History Last Taken 02/16/18] polyethylene glycol 3350 17 gram oral powder packet 17 g PO DAILY PRN Constipation 02/17/18 [History Last Taken Unknown] vit A 300 mcg-C 200 mg-E 27 mg-lutein 2 mg and minerals tablet 1 ea PO DAILY SUPPLEMENT 02/17/18 [History Last Taken 02/17/18] lisinopril 20 mg tablet 10 mg PO DAILY BLOOD PRESSURE 03/15/18 [History Last Taken Unknown] finasteride 5 mg tablet 5 mg PO DAILY urination 01/24/20 [History Last Taken Unknown] tamsulosin 0.4 mg capsule 0.4 mg PO DAILY urination 01/24/20 [History Last Taken Unknown] nitroglycerin 0.4 mg sublingual tablet 0.4 mg sublingual Q5M PRN Chest Pain #25 tabs 01/13/21 [Rx Last Taken Unknown] pravastatin 40 mg tablet 40 mg PO QHS 09/22/21 [History Last Taken Unknown] ofloxacin 0.3 % eye drops See Rx Instructions ophthalmic (eye) .COMPLEX 03/11/22 [History Last Taken Unknown] triamcinolone acetonide 0.1 % topical ointment 1 applic topical DAILY 03/11/22 [History Last Taken Unknown] vitamins A,C,X-exyn-dwecdz 2,148 mcg-113 mg-45 mg-17.4 mg tablet 1 tab PO ONCE 03/11/22 [History Last Taken Unknown] gabapentin 300 mg capsule 100 mg PO DAILY NERVE PAIN 09/09/22 [History Last Taken Unknown] levothyroxine 150 mcg tablet 175 mcg PO DAILY thyroid 09/09/22 [History Last Taken Unknown] Allergy/AdvReac Type Severity Reaction Status Date / Time cat dander [cats] Allergy Rash Verified 02/14/23 17:54 hyoscyamine [Hyoscyamine] Allergy Other Verified 02/14/23 17:54 metronidazole Allergy Unknown Verified 02/14/23 17:54 Seasonal Allergies: Uncoded Allergy PT UNSURE Verified 02/14/23 17:54 [environmental] OF REACTION sesame oil Allergy Other Verified 02/14/23 17:54 Sulfa (Sulfonamide Allergy Other Verified 02/14/23 17:54 Antibiotics) sulfamethoxazole Allergy Other Verified 02/14/23 17:54 [From Bactrim] tree nut [Tree Nut] Allergy Other Verified 02/14/23 17:54 trimethoprim [From Bactrim] Allergy Other Verified 02/14/23 17:54 Family History (Updated 02/14/23 @ 20:[address] Milady Crabtree MD) Father Heart disease Diabetes Mother Hypertension Prediabetes Surgical History History of amputation of lesser toe History of bunionectomy of right great toe History of cardiac catheterization History of cataract surgery History of coronary artery bypass surgery (~06/11/97) History of hemorrhoidectomy History of knee surgery History of left-sided carotid endarterectomy (~1997) History of prostatectomy History of right-sided carotid endarterectomy (~05/04/14) History of tonsillectomy History of transurethral resection of prostate History of vasectomy Hx of colonoscopy Presence of coronary angioplasty implant and graft (~01/28/11) Social History household members: none Smoking Status: Never smoker second hand exposure: No alcohol intake: never substance use type: does not use caffeine: Yes Type: carbonated beverages Number of servings: 2 what type of physical activity do you participate in: walking frequency: daily duration: 45-60 minutes/day seatbelt use: always ROS ROS Narrative Admission Review of Systems: CONSTITUTIONAL: No weight loss, fever, chills, + weakness or fatigue. HEENT: Eyes: No visual loss, blurred vision, double vision or yellow sclerae. Ears, Nose, Throat: No hearing loss, sneezing, congestion, runny nose or sore throat. SKIN: No rash or itching, lesions, wounds. CARDIOVASCULAR: No chest pain, chest pressure or chest discomfort, palpitations, edema, orthopnea, syncopal events. RESPIRATORY: + Chronic cough without any marked sputum, no marked dyspnea, wheezing, hemoptysis. GASTROINTESTINAL: + Mild anorexia, loose stools, possible nausea/abdominal cramping. No vomiting, melena, BRBPR. GENITOURINARY: No dysuria, frequency, urgency or retention. NEUROLOGICAL: + Increased confusion above dementia baseline. No headache, dizziness, syncope, paralysis, ataxia, numbness or tingling in the extremities, focal weakness, change in bowel or bladder control, seizure. MUSCULOSKELETAL: + muscle, back pain, joint pain or stiffness. HEMATOLOGIC: + Easy bleeding or bruising. LYMPHATICS: No enlarged nodes. No history of splenectomy. PSYCHIATRIC: No history of depression or anxiety. ENDOCRINOLOGIC: No reports of sweating, cold or heat intolerance. No polyuria or polydipsia. ALLERGIES: + history of rhinitis. Vital Signs Vital Signs Vital Signs: 02/14/23 17:49 02/14/23 17:55 Temperature 98.3 F Temperature Source Oral Pulse Rate 65 Respiratory Rate 17 Respiratory Effort Normal Non-Labored Respiratory Pattern Normal Blood Pressure 121/63 H Blood Pressure Mean 82 Pulse Ox 94 Oxygen Delivery Method Room Air Weight Weight: 185 lb 3.013 oz Body Mass Index (BMI) 25.1 Physical Exam Narrative Physical Examination: General: Awake, alert, oriented to self, place and some recent events but definitely underlying dementia and is confused with necessity for several repeat conversations, following commands, seated upright in the ED bed, fatigued, no acute distress, hard of hearing. Skin: Normal color, normal turgor, no icterus, no cyanosis except occasional staged ecchymoses, notable bilateral lower extremity stasis disease. HEENT: AT/NC, EOMI, PERRLA, dry MM, no carotid bruits or JVD noted. Lungs: Diminished, greater bases, mild crackles which is likely chronic given underlying pulmonary fibrotic disease, no rales, ronchi or wheezing. Heart: Currently regular rate and rhythm/status post pacemaker; no gallop, rub audible. Abdomen: Soft, NTTP, ND, hyperactive BS, no HSM. Extremities: No cyanosis, no clubbing, no marked pitting edema, see skin. Neurological: Patient awake, alert, oriented as noted cognitive function decreased from baseline although baseline patient does have underlying dementia with cognitive deficits associated; pupils equally reactive to light and a ccommodation, cranial nerves grossly normal, moving all 4 extremities, no focal deficits, strength moderately to severely globally decreased secondary to acute presentation and complaints as noted. Psychiatric: Affect appears flat, fatigued, no acute evidence of depressive or anxiety feelings. Results Lab / Micro Data Result Diagrams: 02/14/23 17:45 02/14/23 17:45 Labs: Laboratory Results - last 24 hr 02/14/23 17:45: WBC 14.5 H, RBC 4.41 L, Hgb 13.5, Hct 41.4, MCV 93.9, MCH 30.6, MCHC 32.6, RDW Std Deviation 46.4 H, RDW Coeff of Priya 13.5, Plt Count 218, MPV 9.5, Immature Gran % (Auto) 0.600, Neut % (Auto) 81.4 H, Lymph % (Auto) 7.4 L, [place]lin % (Auto) 10.3 H, Eos % (Auto) 0.1, Baso % (Auto) 0.2, Absolute Neuts (auto) 11.8 H, Absolute Lymphs (auto) 1.07, Nucleated RBC % 0 02/14/23 17:45: Sodium 137, Potassium 4.8, Chloride 104, Carbon Dioxide 26.0, Anion Gap 7, BUN 39 H, Creatinine 2.36 H, Estim Creat Clear Calc 24.20, Est GFR (MDRD) Af Amer 34 L, Est GFR (MDRD) Non-Af 28 L, BUN/Creatinine Ratio 16.5, G lucose 120 H, Calcium 10.3 H, Total Bilirubin 0.90, AST 67 H, ALT 26, Alkaline Phosphatase 74, Troponin I High Sens 31, Total Protein 7.1, Albumin 3.3, Globulin 3.8, Albumin/Globulin Ratio 0.9 02/14/23 19:45: Urine Color Yellow, Urine Clarity Clear, Urine pH 6.5, Ur Specific [place] 1.015, Urine Protein 30 H, Urine Glucose (UA) Normal, Urine Ketones Negative, Urine Occult Blood 250 H, Urine Nitrite Negative, Urine Bilirubin Negative, Urine Urobilinogen 1 H, Ur Leukocyte Esterase 25 H Micro: Microbiology 02/14/23 18:28 Nasal Secretion SARS-CoV-2 & FLU Antigen (Rapid) - Final Radiology Impression Brain CT 02/14/23 18:09 IMPRESSION: Chronic involutional changes without evidence of acute intracranial or calvarial abnormality. Findings appear similar to the PET/CT scan of 2019. Electronically Signed: Chano Hartley DO at 20:04 EDT Reading Location ID and State: [facility] / [place] Tel [phone], Service support , Chest X-Ray 02/14/23 18:15 IMPRESSION: 1. Interval placement of a cardiac pacemaker. There is no acute cardiopulmonary disease or major interval change. Electronically Signed: Chano Hartley DO at 18:49 EDT Reading Location ID and State: [facility] / [place] Tel [phone], Service support , Abdomen/Pelvis CT 02/14/23 19:14 IMPRESSION: 1. Fluid-filled small bowel loops. The possibility of enteritis cannot BE ruled out. 2. Pulmonary fibrosis with calcified pleural plaque. The possibility of asbestos related pleural disease cannot be ruled out. 3. Evidence of old granulomatous disease. 4. Cardiac pacemaker. 5. Right renal cyst. 6. 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 There is no acute fracture or dislocation. Electronically Signed: Chano Hartley DO at 20:00 EDT Reading Location ID and State: [facility] / [place] Tel [phone], Service support , Assessment & Plan Assessment/Plan (1) UMBERTO (acute kidney injury): PLAN: Plan The patient is an 87 y/o M w/ PMHx: Chart reported Prediabetes, Chart reported Rheumatoid arthritis/Psoriatic arthritis, Dementia unclear type with unclear behavioral disturbance history, CKD stage III unclear subtype, CAD s/p PCI and CABG, Carotid disease, PAOD, BPH s/p TURP, Hx Sinus bradycardia s/p pacemaker placement, HTN, HLD, Interstital lung disease, Hypothyroidism who presents to the [facility] ED on 02/14/23 with history of increased confusion above his baseline dementia over the last week as well as generalized malaise and fatigue with groaning and admission of not feeling well but difficulty explaining further with no specific pain and no nausea or emesis but reported episodes of urinary and fecal incontinence prompt eventual ED evaluation. Daughter and patient deny any recent URI type symptoms. #1. Adult failure to thrive complicated by underlying dementia with worsening confusion/acute encephalopathy, metabolic with UMBERTO but potentially underlying infectious etiology of unclear specific origin, possibly viral gastroenteritis: We will admit to medical surgical floor, maintain on fall and aspiration preca utions, will judiciously hydrate and hold nephrotoxic medication given acute kidney injury with repeat CMP in a.m., to be cautious given significant increase in recent COVID illness will obtain COVID PCR and if stool incontinence with liquid stool will obtain enteric as well as C. difficile to be cautious, PT/OT/case management consultation for discharge planning as patient currently residing by himself and certainly may need assisted versus skilled facility. #2. Acute kidney injury on CKD stage III unclear subtype: Unclear etiology, Admission BUN/Cr 39/2.36, prior baseline creatinine noted to be 1.2-1.4 with last noted 01/11/2023 creatinine 1.4. Will hydrate, hold nephrotoxic medications and repeat chemistry in AM, obtain FeNa. #3. Leukocytosis, mild, unclear specific etiology: Patient does present with acute kidney injury possibly a component of dehydration, possibly reactive, urinalysis not marked appearing, chest x-ray with no overt evidence of any pneumonia and CT abdomen pelvis with no obvious findings in the lung bases, will obtain COVID PCR to be cautious and as noted if diarrhea onset will obtain enteric and C. difficile to be cautious as well. #4. Dementia, unclear type with unclear behavioral disturbance history: We will continue patient home donepezil regimen, complicates presentation, PT/OT/case management consultation for discharge planning. #5. Chronic interstitial lung disease: Patient with history of ILD, CT A/P with visualized lung portions with evidence of pulmonary fibrotic change, known, as needed albuterol if needed, encourage continued outpatient follow-up with pulmonary medicine as previously arranged. #6. CAD: Status post revascularization therapy with PCI/CABG w/ CABG 119 VIZCARRA to the LAD and Y graft off the VIZCARRA to the diagonal and PCI 2011 circumflex, will continue aspirin, Plavix, statin, not on beta-cece therapy with history of bradycardia, holding RAVEN inhibitor given UMBERTO is noted. #7. Carotid disease, PAOD: s/p BL CEA, will continue aspirin, Plavix, statin, not on beta-cece therapy with history of bradycardia, holding RAVEN inhibitor given UMBERTO is noted. #8. Chart reported history rheumatoid arthritis, psoriatic arthritis: Not on regimen currently per list however in the past had been on methotrexate oral regimen weekly of note, encourage continued outpatient follow-up and assessment as needed. #9. Chart reported prediabetic history: Not on any medication, glucose appropriate range only mildly elevated to 120 upon current presentation, will obtain hemoglobin A1c to be cautious but defer Accu-Cheks with insulin sliding scale until this results. #10. Hypertension: We will temporally hold patient home lisinopril given UMBERTO, as needed IV hydralazine interim. #11. Hyperlipidemia: We will continue patient on statin therapy. #12. BPH: Status post prior TURP, will continue patient on Flomax/finasteride r egimen. Patient also of note does have a history listed of urethral stricture. #13. Gout: We will continue patient on allopurinol regimen. #14. Allergic rhinitis: We will temporarily hold patient home loratadine regimen. #15. DVT prophylaxis: Heparin. #16. CODE status: Patient RENEE is his daughter who is present and living will is currently in. Discussed CODE status at length including difference between FULL code, DNR-CCA and DNR-CC status. Following discussions about the differences in these status, requested DNR-CCA, no intubation status. Also discussed concept of central line placement and pressor usage which they declined if it were necessary. Advanced Care Planning Face to Face Time: 16 minutes. Admission Evaluation Time spent evaluating chart, patient history, patient evaluation, care planning and discussion with specialists: 75 minutes. Charges/Coding Visit Charges Inpatient E&M: 58602 Init Hosp L3 Procedures Hospitalists Procedures: 33956 Advncd Care Plan 30 Min
[2023-02-14 21:08] VITALS: BP 102/58; PULSE 65; RESP 18; O2SAT 94
--- OUTSIDE RECORDS SUMMARY | 2023-02-14 21:14 | XMS RPT_ITS | CCD ---
:1935 Author Organization [facility] Care Team Providers Name Role Phone Jason Snider MD Primary Care Provider Augusto Tran Unavailable Kenan Mari Unavailable Lorrie Gao DO, Arnold D Unavailable Testralow, Aracelis Unavailable Claude He Unavailable [phone] ALEIDA THOMAS Attending Unavailable MOHAN BENITEZ Referring [...] Allergen(s) Onset Cat; Translations: Propensity to 07-21-20 [facility] (20 sources) [CATS] adverse 06 Clinic reactions Hyoscyamine; Drug Allergy 08-23-20 Unknown [facility] (20 sources) Translations: 03 Clinic [HYOSCYAMINE] metroNIDAZOLE; Drug Allergy 08-23-20 Unknown [facility] (20 sources) Translations: 03 Clinic [METRONIDAZOLE] sesame seed Drug Allergy 08-11-20 [facility] (20 sources) extract; 05 Clinic Translations: [SESAME SEED] Sulfamethoxazole / Drug Allergy 05-02-20 Rash, Hives, [facility] (20 sources) Trimethoprim; 07 Other: See Work Phon e: Translations: Comments [SULFAMETHOXAZOLE-T RIMETHOPRIM] Sulfonamides Drug Allergy 03-02-20 Rash, Hives [facility] (20 sources) (Antibiotic); 19 Work Phon e: Translations: [SULFA (SULFONAMIDE ANTIBIOTICS)] tree nut, Drug Allergy 03-02-20 Other: See [facility] in (20 sources) unspecified; 19 Comments Work Phone : Translations: [TREE NUT] Trimethoprim; Drug Allergy 03-02-20 Rash, Hives [facility] Clinic (20 sources) Translations: 19 Work [...] 75 mg tablet daily Indications: Atherosclerosis of still[place]am[place] coronary artery of nativ e heart without [...] daily. memantine hydrochloride 10 mg oral tablet W-euwdao-E-asparta te Start: 01-16-2022 take 1 memantine (16 [...] eyes one day prior to eye injection. 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 Callus very minimal on exam. Continue with wider shoes as these appear to be helping. Callus reduced with dremmel Toenails 1-5 left and 1-3 right debrided in sree th and thickness. Q7 modifier F/u in 2 months Aracelis Aceves DPM Referring Provider: ARACELIS ACEVES [[id number]] Allergies As of Date: 01/06/2023 Noted Allergy [...] Amputation of little toe, right, subsequent encounter ([facility]) [S98.131D] PAD (peripheral artery disease) ([facility]) [I73.9] Hammer toes of both [...] d ay prior to eye injection. - [place]mdale-3 Fatty Acids (FISH OIL) 500 mg cap [...] (UCWSTR) [facility] NAVID CORTES ([id number]) 1935 [facility] Date Time Provider Department 11/11/22 3:15 PM GENI NEGRON [facility] During your visit today, we recorded the following inf ormation about you: Temperature Pulse Respiration Blood pressure 96.9 degrees 60/minute 16/minute 142/80 Weight 85.7 kg Geni Negron APRN.CNP 11/11/2022 3:16 PM Signed Subjective The history is provided by the patient a nd the spouse. No speech and language assistant was used. 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 ([facility]) 04/04/2021 Esophageal reflux Hemorrhage of rectum and anus History of prediabetes 08/05/2016 Hyperlipidemia Hypertensive kidney disease with stage 3a chronic kidn ey disease ([facility]) 11/04/2022 Hypertrophy of prostate with urinary obs truction and other lower urinary tract symptoms (LUTS) 03/19/2006 HYPERURICEMIA 09/29/2006 Idiopathic peripheral neuropathy 03/28/2010 Internal hemorrhoids without mention of complication Interstitial lung disease ([facility]) 05/18/2017 Mixed hyperlipidemia Hyperlipidemia Moderate aortic valve stenosis 11/06/2022 Occlusion and stenosis of carotid artery without menti on of cerebral infarction 07/08/2010 OM (osteomyelitis) ([facility]) 04/03/2010 Osteomyelitis of fifth toe of right foot ([facility]) 020 PAC (premature atrial contraction) 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 cardiac pacemaker 09/22/2019 [employer] dual-chamber pacemaker system; indic ation: symptomatic bradycardia due to sinus nod e dysfunction; system will be MRI conditional after 6 weeks post implant Psoriasis and similar disorders arthritis PSORIATIC ARTHRITIS 09/29/2006 PVC (premature ventricular contraction) Sinus node dysfunction ([facility]) 09/22/2019 Unspecified essential hypertension Essential hypertension Unspecified hypothyroidism Urethral stricture 04/04/2012 Urinary retention 03/16/2013 Vasculitis ([facility]) 04/01/2017 I have confirmed and edited as necessary, the [facility] Review of Systems Constitutional: Negative for [...] signs and symptoms that would indicate the ca ed for higher level of care were discussed in detail warranting prompt ER jt guardado. Geni Negron APRN.WOOD HAND[employer]ER Allergies As of Date: 11/11/2022 Noted Allergy [...] Date Reviewed: 11/11/2022 Reviewed by: Geni Negron APRN.WOOD HANDLER - Fully Assessed Reason for Visit: Finger (more content not included)... CNOV Office Visit (PODIWS) [facility] NAVID Starr ([id number]) 1935 M [facility] Time Provider Department 11/11/22 1:45 [...] Amputation of little toe, right, subsequent encounter ([facility]) (I73.9) PAD (peripheral artery disease) ([facility]) (M20.41, M20.42) Hammer toes of [...] foot. Recommend he return to his prior [facility] as these shoes were wider and led to less callus formation. F/u in 5-6 weeks MIGUEL Palta DPM Amelia Smith, LPN 11/11/2022 2:[address] Aceves, Navid was provided with universal s leeve, and instructed/educated in its application, wear, and care . All questions were answered, and patient was able to demonstrate [facility] ce with the necessary skills to [...] Amputation of little toe, right, subsequent encounter ([facility]) [S98.131D] PAD (peripheral artery disease) ([facility]) [I73.9] Hammer toes of both [...] CNOV Office Visit (INTMWS) [facility] BRANDANCECILIANAVID ([id number]) 1935 M [facility] Date Time Provider Department 11/06/22 9:00 AM [...] all Concerns with sexual function:Not at all [place] anxious, stressed, angry, irritable , lonely, isolated, [...] (Internal Medi cine) Augusto Tran as Specialty Measurement Operator (Cardiology) Kenan Mari as Specialty Measurement Operator (Pulmonary Disease) Lorne Andrew Jr., DO as Specialty Measurement Operator (Op hthalmology) Aracelis Aceves as Specialty Measurement Operator (Podiatry) Claude He MD/Diego Wu MD as Sp ecialty Measurement Operator (Cerebrovascular) Dr. Julia Barron, rheumatology. Medical/Family history [...] AM Signed This note was created using Iumriter. Subjective Navid Cortes is a 86 year [...] Interstitial Lung Disease (Hcc) Bradycardia Atherosclerosis of Ione Coronary Artery of Ione He art Without Angina Pectoris Gout Presence [...] 11-02-2022 Cholesterol [Mass/Vol] 191 mg/dL Normal <200 [facility] Comment on above: Order Comment: Specimen Type : BLOOD SPECIMENOrdering Facility: [facility] Address: [address] [place] [address] Result Comment: <200 mg/dL, Desirable 200-239 mg/dL, Borderline hi gh >239 mg/dL, High Performed By: #### 91634-6, 3016-3 ####[facility] LABCLIA [id number] ARVIND Lai [facility] [id number] [address] [place] Cholesterol in HDL [Mass/Vol] 55 mg/dL Normal >39 [facility] Comment on above: Order Comment: Specimen Type : BLOOD SPECIMENOrdering Facility: [facility] Address: [address] [place] [address] Result Comment: 40-59 mg/dL, Acceptable >59 mg/dL, High: Negative ri sk factor for coronary heart disease <40 mg/dL, Low: Positive ris k factor for coronary heart disease Performed By: #### 09669-4, 6-3 ####[facility] LABCLIA [id number] [address] OF [facility] Cholesterol in LDL [Mass/Vol] 113 mg/dL High <100 [facility] Comment on above: Order Comment: Specimen Type : BLOOD SPECIMENOrdering Facility: [facility] Address: [address] [place] [address] Result Comment: <100 mg/dL, Optimal 100-129 mg/dL, Near optimal/ above optimal 130-159 mg/dL, Borderline hi gh 160-189 mg/dL, High >189 mg/dL, Very high Secondary prevention optimal LDL Cholesterol levels are recommended to be < 70 mg/dL Performed By: #### 74379-4, 3015-3 ####[facility] LABCLIA [id number] [address] Cholesterol in LDL/Cholesterol in 2.05 {ratio} Normal <2.54 [facility] HDL [Mass ratio] Comment on above: Order Comment: Specimen Type : BLOOD SPECIMENOrdering Facility: [facility] Address: [address] [place] [address] Result Comment: Reference: 1. National Cholesterol Educ ation Program ATP III Guideline At-A-Glance Quick Desk Reference: National Heart, Lung, and Blood Stacy. National Institutes of Health. 2001: NIH Publication No. 01-3305. 2. An International Atherosc lerosis Society position paper: global recommendations for the management of dyslipidemia: executive summary, Atherosclerosis. 2014: 232(2):410-413. Performed By: #### 47145-1, 6-3 ####[facility] LABCLIA [id number] [place] [address] [place] Cholesterol in VLDL [Mass/Vol] 23 mg/dL Normal <30 [facility] Comment on above: Order Comment: Specimen Type : BLOOD SPECIMENOrdering Facility: [facility] Address: [address] [address] Performed By: #### 76437-5, 3016-3 ####[facility] LABCLIA [id number] [place] [address] [place] Cholesterol non HDL [Mass/Vol] 136 mg/dL High <130 [facility] Comment on above: Order Comment: Specimen Type : BLOOD SPECIMENOrdering Facility: [facility] Address: [address] [address] Result Comment: <130 mg/dL, Optimal 130-159 mg/dL, Near optimal/ above optimal 160-189 mg/dL, Borderline hi gh 190-219 mg/dL, High >219 mg/dL, Very high Secondary prevention optimal non HDL Cholesterol levels are recommended to be <100 mg/dL Performed By: #### 03299-1, 3015-3 ####[facility] LABCLIA [id number] [place] [address] [place] Cholesterol.total/Cholesterol in HDL 3.47 {ratio} Normal <5.1 0 [facility] [Mass ratio] [facility] Comment on above: Order Comment: Specimen Type : BLOOD SPECIMENOrdering Facility: [facility] Address: [address] Performed By: #### 59572-7, 3015-3 ####[facility] LABCLIA [id number] [place] [address] [place] FASTING TIME 15 hrs Normal [facility] Comment on above: Order Comment: Specimen Type : BLOOD SPECIMENOrdering Facility: [facility] Address: [address] Performed By: #### 77721-2, 3015-3 ####[facility] LABCLIA [id number] [place] [address] [place] Triglyceride [Mass/Vol] 116 mg/dL Normal <150 [facility] Comment on above: Order Comment: Specimen Type : BLOOD SPECIMENOrdering Facility: [facility] Address: [place] [id number] Result Comment: <150 mg/dL, Normal 150-199 mg/dL, Borderline hi gh 200-499 mg/dL, High >499 mg/dL, Very high Performed By: #### 15312-5, 3016-3 ####[facility] LABCLIA [id number] [place] [address] [place] TSH SerPl-aCnc on 11-02-2022 TSH Qn 2.870 m[IU]/L Normal 0.270-4.200 [facility] Comment on above: Order Comment: Specimen Type : BLOOD SPECIMENOrdering Facility: [facility] Address: [address] [place], [place] [address] Performed By: #### 14333-6, 3016-3 ####[facility] LABIA [id number] [address] [place] CNPN on 09-25-2022 CNPN Telephone (INTMWS) [facility] NAVID Starr ([id number]) 1935 M [facility] Date Time Provider Department 09/25/22 JASON SNIDER [...] T his has been faxed back to [place] [employer] is [employer]. Allergies As of Date: 09/25/2022 Noted Allergy [...] d ay prior to eye injection. - [place]mdale-3 Fatty Acids (FISH OIL) 500 mg cap [...] (INTMWS) [facility] NAVID CORTES ([id number]) 1935 M [facility] Date Time Provider Department 09/17/22 6:00 PM JASON SNIDER During your visit today, we recorded the following inf ormation about you: Temperature Pulse Respiration Blood pressure 97.5 degrees 60/minute 16/minute 134/84 Weight 80.7 kg Jason Snider MD 09/18/2022 7:32 AM Signed This note was created using Playteauter. Subjective Navid Cortes is a 86 year [...] of the Alzheimer's type with late onset [facility] behavioral disturbance (HCC) - ICD9: 331.0, [...] peripheral neuropathy [G60.9] Order(s):ADVANCE CARE PLAN DISCUSSION [[id number]] Order #: [id number]: 1 lisinopril (ZESTRIL, PRINIVIL) 10 mg tabletTake [...] d ay prior to eye injection. - [place]mdale-3 Fatty Acids (FISH OIL) 500 mg cap [...] Visit (PODIWS) [facility] NAV[facility] St[facility] ([id number]) 1935 M [facility] Date Time Provider Department 09/16/22 1:45 PM [...] (H) 4.3 - 5.6 % Final Comment: [place] Diabetes Association guidelines indicate that patients with [...] CAD (coronary artery disease) two-vessel CABG 1996 ([facility]); PCI/stent LCX 2010 Chronic kidney disease, stage 3 (moderate) 08/11/2016 CKD (chronic kidney disease) stage 3, GFR 30-59 ml/min ([facility]) 08/11/2016 Closed fracture of metatarsal bone(s) 05/14/2010 Cognitive disorder 08/12/2015 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 ([facility]) 04/04/2021 Esophageal reflux Hemorrhage of rectum and anus History of prediabetes 08/05/2016 Hyperlipidemia Hypertrophy of prostate with urinary obs truction and other lower urinary tract symptoms (LUTS) 03/19/2006 HYPERURICEMIA 09/29/2006 Idiopathic peripheral neuropathy 03/28/2010 Internal hemorrhoids without mention of complication Interstitial lung disease ([facility]) 05/18/2017 Mixed hyperlipidemia Hyperlipidemia Occlusion and stenosis of carotid artery without menti on of cerebral infarction 07/08/2010 OM (osteomyelitis) ([facility]) 04/03/2010 Osteomyelitis of fifth toe of right foot ([facility]) 020 PAC (premature atrial contraction) 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 cardiac pacemaker 09/22/2019 [employer] dual-chamber pacemaker system; indic ation: symptomatic bradycardia due to sinus nod e dysfunction; system will be MRI conditional after 6 weeks post implant Psoriasis and similar disorders arthritis PSORIATIC ARTHRITIS 09/29/2006 PVC (premature ventricular contraction) Sinus node dysfunction ([facility]) 09/22/2019 Unspecified essential hypertension Essential hypertension Unspecified hypothyroidism Urethral stricture 04/04/2012 Urinary retention 03/16/2013 Vasculitis ([facility]) 04/01/2017 Current Outpatient Medications Medication [...] eyes one day prior to eye injection. Palmdale-3 Fatty Acids (FISH OIL) 500 mg cap [...] Visit (OTNOCA) Normal [facility] NAVID CORTES ([id number]) 1935 Center Date Time Provider Department 08/14/22 9:45 AM ALEIDA THOMAS Date Time Provider Department Center 08/14/2022 9:45 AM [id number] THOMAS [facility] N Reason for Visit: OT EVAL [...] d ay prior to eye injection. - Palmdale-3 Fatty Acids (FISH OIL) 500 mg cap [...] CNOV Office Visit (PODIWS) [facility] NAVID CORTES ([id number]) 1935 M [facility] Date Time Provider Department 08/05/22 2:15 PM [...] (H) 4.3 - 5.6 % Final Comment: [place] Diabetes Association guidelines indicate that patients with [...] CAD (coronary artery disease) two-vessel CABG 1996 ([facility]); PCI/stent LCX 2010 Chronic kidney disease, stage 3 (moderate) 08/11/2016 CKD (chronic kidney disease) stage 3, GFR 30-59 ml/min ([facility]) 08/11/2016 Closed fracture of metatarsal bone(s) 05/14/2010 Cognitive disorder 08/12/2015 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 ([facility]) 04/04/2021 Esophageal reflux Hemorrhage of rectum and anus History of prediabetes 08/05/2016 Hyperlipidemia Hypertrophy of prostate with urinary obs truction and other lower urinary tract symptoms (LUTS) 03/19/2006 HYPERURICEMIA 09/29/2006 Idiopathic peripheral neuropathy 03/28/2010 Internal hemorrhoids without mention of complication Interstitial lung disease ([facility]) 05/18/2017 Mixed hyperlipidemia Hyperlipidemia Occlusion and stenosis of carotid artery without menti on of cerebral infarction 07/08/2010 OM (osteomyelitis) ([facility]) 04/03/2010 Osteomyelitis of fifth toe of right foot ([facility]) 020 PAC (premature atrial contraction) 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 cardiac pacemaker 09/22/2019 [employer] dual-chamber pacemaker system; indic ation: symptomatic bradycardia due to sinus nod e dysfunction; system will be MRI conditional after 6 weeks post implant Psoriasis and similar disorders arthritis PSORIATIC ARTHRITIS 09/29/2006 PVC (premature ventricular contraction) Sinus node dysfunction ([facility]) 09/22/2019 Unspecified essential hypertension Essential hypertension Unspecified hypothyroidism Urethral stricture 04/04/2012 Urinary retention 03/16/2013 Vasculitis ([facility]) 04/01/2017 Current Outpatient Medications Medication [...] eyes one day prior to eye injection. Palmdale-3 Fatty Acids (FISH OIL) 500 mg cap [...] (PODIWS) [facility] NAVID CORTES ([id number]) 1935 M [facility] Date Time Provider Department 06/24/22 1:30 PM [...] (H) 4.3 - 5.6 % Final Comment: [place] Diabetes Association guidelines indicate that patients with [...] CAD (coronary artery disease) two-vessel CABG 1996 ([facility]); PCI/stent LCX 2010 - Chronic kidney disease, stage 3 (moderate) 08/11/2016 - CKD (chronic kidney disease) stage 3, GFR 30-59 ml/m in ([facility]) 08/11/2016 - Closed fracture of metatarsal bone(s) 05/14/2010 - Cognitive disorder 08/12/2015 - 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 ([facility]) 04/04/2021 - Esophageal reflux - Hemorrhage of rectum and anus - History of prediabetes 08/05/2016 - Hyperlipidemia - Hypertrophy of prostate with urinary obstruction and other lower urinary tract symptoms (LUTS) 03/19/2006 - HYPERURICEMIA 09/29/2006 - Idiopathic peripheral neuropathy 03/28/2010 - Internal hemorrhoids without mention of complication - Interstitial lung disease ([facility]) 05/18/2017 - Mixed hyperlipidemia Hyperlipidemia - Occlusion and stenosis of carotid artery without men tion of cerebral infarction 07/08/2010 - OM (osteomyelitis) ([facility]) 04/03/2010 - Osteomyelitis of fifth toe of right foot ([facility]) 01/22 - PAC (premature atrial contraction) - 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 - Presence of cardiac pacemaker 09/22/2019 [employer] dual-chamber pacemaker system; indic ation: symptomatic [...] one day prior to eye injection. - Palmdale-3 Fatty Acids (FISH OIL) 500 mg cap [...] (INTMWS) [facility] NAVID CORTES ([id number]) 1935 M [facility] Date Time Provider Department 05/29/22 4:40 PM JASON SNIDER INTMWS During your visit today, we recorded the following inf ormation about you: Pulse Blood pressure Weight 60/minute 136/80 79.4 kg Jason Snider MD 06/04/2022 12:19 AM Signed This note was created using [employer]. Subjective Patient presents with: Follow Up Navid Cortes is a 86 year old male was here with his daughter for an earlier follow up. See My Chart message. Concerns were fatigue , digestive problems including fecal soiling. History is limited by lucia geller as patient indicated concerns were not significant. He still lived alone [facility] daily [facility]. He still drove short distances and [...] Interstitial Lung Disease (Hcc) Bradycardia Atherosclerosis of Ione Coronary Artery of Ione He art Without Angina Pectoris Gout Presence [...] one day prior to eye injection. - Palmdale-3 Fatty Acids (FISH OIL) 500 mg cap [...] Erythrocyte distribution width 13.4 % Normal 11.5-15.0 [facility] (RBC) [Ratio] Comment on above: Order Comment: Specimen Type : BLOOD SPECIMENOrdering Facility: [facility] Address: [address] [place] [address] Performed By: #### 73827-3 # ###[facility] YARITZATR[facility] [id number] [place] [id number] [place] Hematocrit (Bld) [Volume fraction] 40.2 % Normal 39.0-5 1.0 [facility] Comment on above: Order Comment: Specimen Type : BLOOD SPECIMENOrdering Facility: [facility] Address: [address] [place] [address] Performed By: #### 16362-8 # ###[facility] CENTERLIA [id number] [place] [address] [place] Hemoglobin (Bld) [Mass/Vol] 13.1 g/dL Normal 13.0-17.0 [facility] Comment on above: Order Comment: Specimen Type : BLOOD SPECIMENOrdering Facility: [facility] Address: [address] [place] [address] Performed By: #### 07666-5 # ###[facility] HOSPITALDOMENICALIA [id number] [place] [address] [place] MCH (RBC) [Entitic mass] 30.3 pg Normal 26.0-34.0 [facility] Comment on above: Order Comment: Specimen Type : BLOOD SPECIMENOrdering Facility: [facility] Address: [address] [place] [address] Performed By: #### 02324-7 # ###[facility] CENTERLIA [id number] E [place] [address] [place] MCHC (RBC) [Mass/Vol] 32.6 g/dL Normal 30.5-36.0 [facility] Comment on above: Order Comment: Specimen Type : BLOOD SPECIMENOrdering Facility: [facility] Address: [address] [place] [address] Performed By: #### 17743-5 # ###[facility] CENTERLIA [id number] [place] [address] [place] MCV (RBC) [Entitic vol] 92.8 fL Normal 80.0-100.0 [facility] Comment on above: Order Comment: Specimen Type : BLOOD SPECIMENOrdering Facility: [facility] Address: [address] [place] [address] Performed By: #### 36982-6 # ###[facility] RUDDYWDOMENICALIA [id number] [place] [address] [place] Nucleated RBC (Bld) [#/Vol] 10*3/uL Normal <0.01 [facility] Comment on above: Order Comment: Specimen Type : BLOOD SPECIMENOrdering Facility: [facility] Address: [address] [place] [address] Performed By: #### 39814-1 # ###[facility] RONALDEsperanzaMORA [id number] [place] [address] [place] Platelet mean volume (Bld) [Entitic 9.7 fL Normal 9.0-1 2.7 [facility] vol] Comment on above: Order Comment: Specimen Type : BLOOD SPECIMENOrdering Facility: [facility] Address: [address] [place], [place] [address] Performed By: #### 51639-6 # ###[facility] HOS[facility]ITALM[facility]A [id number] [place] [address] [place] Platelets (Bld) [#/Vol] 167 10*3/uL Normal 150-400 [facility] Comment on above: Order Comment: Specimen Type : BLOOD SPECIMENOrdering Facility: [facility] Address: [address] [place], [place] [address] Performed By: #### 92659-5 # ###[facility] HOSPITALDOMENICALIA [id number] [place] [address] [place] RBC (Bld) [#/Vol] 4.33 10*6/uL Normal 4.20-6.00 [facility] Comment on above: Order Comment: Specimen Type : BLOOD SPECIMENOrdering Facility: [facility] Address: [address] [place] [address] Performed By: #### 00276-4 # ###[facility] RONALDFREDDYA [id number] [place] [address] [place] WBC (Bld) [#/Vol] 6.02 10*3/uL Normal 3.70-11.00 [facility] Comment on above: Order Comment: Specimen Type : BLOOD SPECIMENOrdering Facility: [facility] Address: [address] [place] [address] Performed By: #### 05005-6 # ###[facility] RONALDFREDDYA [id number] [place] [address] [place] Comprehensive metabolic 2000 panel on 05-18-2022 Albumin [Mass/Vol] 3.8 g/dL Low 3.9-4.9 [facility] Comment on above: Order Comment: Specimen Type : BLOOD SPECIMENOrdering Facility: [facility] Address: [address] [place] [address] Performed By: #### 33620-8 # ###[facility] RONALDSAINT PAULMORA [id number] [place] [address] [place] ALP [Catalytic activity/Vol] 93 U/L Normal 38-113 [facility] Comment on above: Order Comment: Specimen Type : BLOOD SPECIMENOrdering Facility: [facility] Address: [address] [place] [address] Performed By: #### 15576-5 # ###[facility] RONALDMAUREENA [id number] [place] [address] [place] ALT [Catalytic activity/Vol] 14 U/L Normal 10-54 [facility] Comment on above: Order Comment: Specimen Type : BLOOD SPECIMENOrdering Facility: [facility] Address: [address] [place] [address] Performed By: #### 65624-7 # ###[facility] YARITZA MILLTOWNCLIA [id number] [address] [place] [address] [place] Anion gap [Moles/Vol] 8 mmol/L Low 9-18 [facility] Comment on above: Order Comment: Specimen Type : BLOOD SPECIMENOrdering Facility: [facility] Address: [address] [place] [address] Performed By: #### 97663-0 # ###[facility] MILLTOWNCLIA [id number] [address] [place] [address] [place] AST [Catalytic activity/Vol] 21 U/L Normal 14-40 [facility] Comment on above: Order Comment: Specimen Type : BLOOD SPECIMENOrdering Facility: [facility] Address: [address] [place] [address] Performed By: #### 90538-3 # ###[facility] MILLTOWNCLIA [id number] [place] [address] [place] Bilirubin [Mass/Vol] 0.5 mg/dL Normal 0.2-1.3 [facility] Comment on above: Order Comment: Specimen Type : BLOOD SPECIMENOrdering Facility: [facility] Address: [address] [place] [address] Performed By: #### 49419-7 # ###[facility] MILLTOWNCLIA [id number] [address] [place] [address] [place] Calcium [Mass/Vol] 9.4 mg/dL Normal 8.5-10.2 [facility] Comment on above: Order Comment: Specimen Type : BLOOD SPECIMENOrdering Facility: [facility] Address: [address] [place] [address] Performed By: #### 44156-0 # ###[facility] MILLTOWNCLIA [id number] [address] [facility] [place] [address] [place] Chloride [Moles/Vol] 102 mmol/L Normal 97-105 [facility] Comment on above: Order Comment: Specimen Type : BLOOD SPECIMENOrdering Facility: [facility] Address: [address] [place] [address] Performed By: #### 04762-8 # ###[facility] MILLWNCLIA [id number] [place] [address] [place] CO2 [Moles/Vol] 26 mmol/L Normal 22-30 [facility] Comment on above: Order Comment: Specimen Type : BLOOD SPECIMENOrdering Facility: [facility] Address: [address] [place] [address] Performed By: #### 16815-1 # ###[facility] MILLWNJLIA [id number] [place] [address] [place] Creatinine [Mass/Vol] 1.40 mg/dL High 0.73-1.22 [facility] Comment on above: Order Comment: Specimen Type : BLOOD SPECIMENOrdering Facility: [facility] Address: [address] [place] [address] Performed By: #### 36105-6 # ###[facility] CENTERLIA [id number] [place] [address] [place] ESTIMATED GLOMERULAR 49 mL/min/1.73m??? Low >=[address] [facility] FILTRATION RATE Comment on above: Order Comment: Specimen Type : BLOOD SPECIMENOrdering Facility: [facility] Address: [address] [place] [address] Result Comment: Estimated Gl omerular Filtration Rate [...] accurately reflect actual GFR. Performed By: #### 52425-0 # ###[facility] YARITZA CARDENASTOWNCLIA [id number] [place] [address] [place] Glucose [Mass/Vol] 103 mg/dL High 74-99 [facility] Comment on above: Order Comment: Specimen Type : BLOOD SPECIMENOrdering Facility: [facility] Address: [address] [place] [address] Result Comment: The [place] Diabetes Association (ADA) provides guidance for cutoff [...] for diagnosis of diabetes. Reference: Standards of [facility] Care in Diabetes 2016, [place] [employer] Association. Diabetes Care. 2016.39(Suppl 1). Performed By: #### 00735-2 # ###[facility] RONALDZACWDOMENICALIA [id number] [place] [address] [place] Potassium [Moles/Vol] 4.6 mmol/L Normal 3.7-5.1 [facility] Comment on above: Order Comment: Specimen Type : BLOOD SPECIMENOrdering Facility: [facility] Address: [address] [place] [address] Performed By: #### 35867-1 # ###[facility] MILLWNCLIA [id number] [place] [address] [place] Protein [Mass/Vol] 6.1 g/dL Low 6.3-8.0 [facility] Comment on above: Order Comment: Specimen Type : BLOOD SPECIMENOrdering Facility: [facility] Address: [address] [place] [address] Performed By: #### 84051-0 # ###[facility] MILLWNCLIA [id number] [place] [address] [place] Sodium [Moles/Vol] 136 mmol/L Normal 136-144 [facility] Comment on above: Order Comment: Specimen Type : BLOOD SPECIMENOrdering Facility: [facility] Address: [address] [place] [address] Performed By: #### 84353-4 # ###[facility] MILLTOWNCLIA [id number] [place] [address] [place] Urea nitrogen [Mass/Vol] 26 mg/dL High 9-24 [facility] Comment on above: Order Comment: Specimen Type : BLOOD SPECIMENOrdering Facility: [facility] Address: [address] [place] [address] Performed By: #### 88114-2 # ###[facility] [id number] [place] [address] [place] TSH SerPl-aCnc on 05-18-2022 TSH Qn 2.130 m[IU]/L Normal 0.270-4.200 [facility] Comment on above: Order Comment: Specimen Type : BLOOD SPECIMENOrdering Facility: [facility] Address: [address] [place] [address] Performed By: #### 3016-3 ## ##[facility] LABCLIA [id number] [facility] [id number] [address] [place] Vit B12 SerPl-mCnc on 05-18-2022 Cobalamin (Vitamin B12) 428 pg/mL Normal 232-1,245 [facility] [Mass/Vol] Comment on above: Order Comment: Specimen Type : BLOOD SPECIMENOrdering Facility: [facility] Address: [address] [place] [address] Performed By: #### 2132-9 ## ##[facility] LABCLIA [id number] [place] [id number] [place] [facility] CNOV on 05-13-2022 CNOV Office Visit (PODIWS) Normal [facility] SOPHIANAVID A ([id number]) 1935 M [place] Date Time Provider Department 05/13/22 2:00 PM [...] balance shoes . He has no issues Eeo Officer states he did bump his toenail and it is rosemarie ck. PAIN EVALUATION No data found in the last 1 encounters. 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 ([facility]) 04/04/2021 - Esophageal reflux - Hemorrhage of rectum and anus - History of prediabetes 08/05/2016 - Hyperlipidemia - Hypertrophy of prostate with urinary obstruction and other lower urinary tract symptoms (LUTS) 03/19/2006 - HYPERURICEMIA 09/29/2006 - Idiopathic peripheral neuropathy 03/28/2010 - Internal hemorrhoids without mention of complication - Interstitial lung disease ([facility]) 05/18/2017 - Mixed hyperlipidemia Hyperlipidemia - Occlusion and stenosis of carotid artery without men tion of cerebral infarction 07/08/2010 - OM (osteomyelitis) ([facility]) 04/03/2010 - Osteomyelitis of fifth toe of right foot ([facility]) 01/22 - PAC (premature atrial contraction) - 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 - Presence of cardiac pacemaker 09/22/2019 Open[employer] dual-chamber pacemaker system; indic ation: symptomatic bradycardia due to sinus nod e dysfunction; system will be MRI conditional after 6 weeks post implant - Psoriasis and similar disorders arthritis - PSORIATIC ARTHRITIS 09/29/2006 - PVC (premature ventricular contraction) - Sinus node dysfunction ([facility]) 09/22/2019 - Unspecified essential hypertension Essential hypertension - Unspecified hypothyroidism - Urethral stricture 04/04/2012 - Urinary retention 03/16/2013 - Vasculitis ([facility]) 04/01/2017 Current Outpatient Medications Medication [...] one day prior to eye injection. - [place]-3 Fatty Acids (FISH OIL) 500 mg cap Take 1 capsule by mouth once daily. - beta-carotene(a) w-c AND e /zn/cu(OCUVITE PRESERVISION TAB) Take one(1) tablet daily. - CLARITIN 10 MG ORAL TAB Take one(1) tablet daily. - ASPIRIN 81MG TABLET Take one (1) tablet daily . - MULTIVITAMIN TABLET Take one(1) tablet daily. - donepezil (ARICEPT) 10 mg tablet Take 1 tablet by oh ut daily at bedtime. No current facility-administered medications for this visit. ALLERGIES Allergen Reactio (more content not included)... CNOV on 03-31-2022 CNOV Office Visit (PODIWS) [facility] NAVID Starr ([id number]) 1935 M [place] Date Time Provider Department 03/31/22 2:15 PM [...] (H) 4.3 - 5.6 % Final Comment: [place] Diabetes Association guidelines indicate that patients with [...] CAD (coronary artery disease) two-vessel CABG 1996 ([facility]); PCI/stent LCX 2010 - Chronic kidney [...] mention of complication - Interstitial lung disease ([facility]) 05/18/2017 - Mixed hyperlipidemia Hyperlipidemia - Occlusion and stenosis of carotid artery without men tion of cerebral infarction 07/08/2010 - OM (osteomyelitis) ([facility]) 04/03/2010 - Osteomyelitis of fifth toe of right foot ([facility]) 01/22 - PAC (premature atrial contraction) - 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 - Presence of cardiac pacemaker 09/22/2019 [employer] Windows dual-chamber pacemaker system; indic ation: symptomatic bradycardia due to sinus nod e dysfunction; system will be MRI conditional after 6 weeks post implant - Psoriasis and similar disorders arthritis - PSORIATIC ARTHRITIS 09/29/2006 - PVC (premature ventricular contraction) - Sinus node dysfunction ([facility]) 09/22/2019 - Unspecified essential hypertension Essential hypertension - Unspecified hypothyroidism - Urethral stricture 04/04/2012 - Urinary retention 03/16/2013 - Vasculitis ([facility]) 04/01/2017 Current Outpatient Medications Medication [...] one day prior to eye injection. - [place]-3 Fatty Acids (FISH OIL) 500 mg cap Take 1 capsule by mouth once daily. - beta-carotene(a) w-c AND e /zn/cu(OCUVITE PRESERVISION TAB) T (more content not included)... 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 ([facility]) 04/04/2021 - Esophageal reflux - Hemorrhage of rectum and anus - History of prediabetes 08/05/2016 - Hyperlipidemia - Hypertrophy of prostate with urinary obstruction and other lower urinary tract symptoms (LUTS) 03/19/2006 - HYPERURICEMIA 09/29/2006 - Idiopathic peripheral neuropathy 03/28/2010 - Internal hemorrhoids without mention of complication - Interstitial lung disease ([facility]) 05/18/2017 - Mixed hyperlipidemia Hyperlipidemia - Occlusion and stenosis of carotid artery without men tion of cerebral infarction 07/08/2010 - OM (osteomyelitis) ([facility]) 04/03/2010 - Osteomyelitis of fifth toe of right foot ([facility]) 01/22 - PAC (premature atrial contraction) - 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 - Presence of cardiac pacemaker 09/22/2019 [employer] dual-chamber pacemaker system; indic ation: symptomatic bradycardia due to sinus nod e dysfunction; system will be MRI conditional after 6 weeks post implant - Psoriasis and similar disorders arthritis - PSORIATIC ARTHRITIS 09/29/2006 - PVC (premature ventricular contraction) - Sinus node dysfunction ([facility]) 09/22/2019 - Unspecified essential hypertension Essential hypertension - Unspecified hypothyroidism - Urethral stricture 04/04/2012 - Urinary retention 03/16/2013 - Vasculitis ([facility]) 04/01/2017 Current Outpatient Medications Medication [...] one day prior to eye injection. - [place]-3 Fatty Acids (FISH OIL) 500 mg cap [...] for this v (more content not included)... 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 Brown has bee n sent [...] d ay prior to eye injection. - [place]-3 Fatty Acids (FISH OIL) 500 mg cap [...] (INTMWS) Normal [facility] NAVID CORTES ([id number]) 1935 M [place] Date Time Provider Department 01/16/22 4:40 PM JASON SNIDER INTMWS During your visit today, we recorded the following inf ormation about you: Blood pressure 140/66 Jason Snider MD 01/18/2022 2:21 PM Signed This note was created using [employer]. Subjective Navid Cortes is a 86 year old male her e with his daughter. He slipped on ice recently with no major injury. 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 Daughter reported he still passed his vision exam for driving and patient still felt safe driving to familiar places. Home health aid hours have increased, and he had some home care 6 days per week. This improved medication adherence and nutrition al quality. He still went for meals at a [facility] when home health was not available, [...] Interstitial Lung Disease (Hcc) Bradycardia Atherosclerosis of Ione Coronary Artery of [place]one He art Without Angina Pectoris Gout Presence [...] one day prior to eye injection. - [place]-3 Fatty Acids (FISH OIL) 500 mg cap [...] Anion gap [Moles/Vol] 7 mmol/L Low -18 [facility] Calcium [Mass/Vol] 9.4 mg/dL Normal 8.5-10.2 [facility] Chloride [Moles/Vol] 104 mmol/L Normal 97-105 [facility] CO2 [Moles/Vol] 31 mmol/L High 22-30 [place] [facility] [place] Creatinine [Mass/Vol] 1.27 mg/dL High 0.73-1.22 [facility] eGFR- Amer. >60 Normal [facility] eGFR-All Other Races 54 . Normal [facility] Comment on above: Result Comment: eGFR (Estima [...] [email or web address]. Glucose [Mass/Vol] 72 mg/dL Low 74-99 [facility] Comment on above: Result Comment: The [place] Diabetes Association (ADA) provides guidance for cutoff [...] for diagnosis of diabetes. Reference: Standards of [facility] Care in Diabetes 2016, [place] Diabetes Association. Diabetes Care. 2016.39(Suppl 1). Potassium [Moles/Vol] 4.3 mmol/L Normal 3.7-5.1 [facility] Sodium [Moles/Vol] 142 mmol/L Normal 136-144 [facility] Urea nitrogen [Mass/Vol] 16 mg/dL Normal 9-24 [facility] CBC on 01-09-2022 Absolute nRBC <0.01 Normal <0.01 [facility] Erythrocyte distribution 13.5 % Normal 11.5-15.0 [facility] width (RBC) [Ratio] Clevelporfirio d Hematocrit (Bld) [Volume 38.9 % Low 39.0-51.0 [facility] fraction] [place] Hemoglobin (Bld) [Mass/Vol] 12.6 g/dL Low 13.0-17.0 [facility] MCH 30.7 pG Normal 26.0-34.0 [facility] MCHC (RBC) [Mass/Vol] 32.4 g/dL Normal 30.5-36.0 [facility] MCV (RBC) [Entitic vol] 94.9 fL Normal 80.0-100.0 [facility] Platelet mean volume (Bld) 9.6 fL Normal 9.0-12.7 [facility] [Entitic vol] [place] Platelets (Bld) [#/Vol] 170 10*3/uL Normal 150-400 [facility] RBC (Bld) [#/Vol] 4.10 10*6/uL Low 4.20-6.00 [facility] WBC (Bld) [#/Vol] 5.82 10*3/uL Normal 3.70-11.00 [facility] TSH on 01-09-2022 TSH Qn 5.780 m[IU]/L High 0.270-4.200 [facility] Comment on above: Performed By: #### TSH ####C [facility] [id number] [place], [place] [phone] Basic Panel on 09-23-2019 Creatinine [Mass/Vol] 1.11 mg/dL Normal 0.67-1.17 [facility] Comment on above: Performed By: #### P8 #### [facility] [address] [place], [place] [address] Anion gap [Moles/Vol] 8 mmol/L Normal 8-16 [facility] Comment on above: Performed By: #### P8 #### [facility] [address] [place], [place] [address] CO2 [Moles/Vol] 27 mmol/L Normal 21-32 [facility] Comment on above: Performed By: #### P8 #### [facility] [address] [place], [place] [address] Urea nitrogen [Mass/Vol] 23 mg/dL High 7-18 [facility] Comment on above: Performed By: #### P8 #### [facility] [address] [place], [place] [address] Calcium [Mass/Vol] 9.5 mg/dL Normal 8.5-10.1 [facility] Comment on above: Performed By: #### P8 #### [facility] [address] [place], [place] [address] Glucose [Mass/Vol] 105 mg/dL High 70-99 [facility] Comment on above: Performed By: #### P8 #### [facility] [address] [place], [place] [address] Chloride [Moles/Vol] 107 mmol/L Normal 98-107 [facility] Comment on above: Performed By: #### P8 #### [facility] [address] [place], [place] [address] Potassium [Moles/Vol] 4.3 mmol/L Normal 3.5-5.1 [facility] Comment on above: Performed By: #### P8 #### [facility] [address] [place], [place] [address] Sodium [Moles/Vol] 138 mmol/L Normal 136-145 [facility] Comment on above: Performed By: #### P8 #### [facility] [address] [place], [place] [address] CNPN on 09-23-2019 CNPN Telephone (AK[facility]) Normal [place] NAVID Ward ([id number]) 1935 M Medical Date Time Provider Department [...] TA* TAKE 3 TABLETS ONCE A W [place] FAMOTIDINE 20 MG TABLET Take 1 tablet [...] More... Bradycardia [R00.1] INVALID FOR* Atherosclerosis of stillaguamish coronary artery of na*INVALI D FOR* Chronic [...] 09-23-2019 ECG COMPLETE NAME : NAVID CORTES [employer] [facility] PID : [id number] Center : 1935 Gender : Male Race : ORD : [id number] Procedure Date : Sep 23 2019 05:24:07 Edit Date : Sep 25 2019 09:07:38 Diagnosis:Atrial-paced rhyth m with prolonged AV conduction WITH OCCASIONAL PREMATURE VENTRICULAR COMPLEXES INAPPROPRIATE PACING, SUSPECT PACEMAKER DYSFUNCTION ABNORMAL ECG NO PREVIOUS ECGS AVAILABLE Confirmed by MD CAGE VINAYAK ([id number]) on 09/25/2019 9 :07:33 AM Ventricular Rate : 68 BPM Atrial Rate : 53 BPM P-R Interval : 252 ms QRS Duration : 106 ms Q-T Interval : 410 ms QTC Calculation(Bazett) : 435 ms R [place] : 43 degrees T [place] : 52 degrees Test Reason : Arrhythmia Location : 103 : AKOU ROU Overread By : MD CAGE VINAYAK Edited By : MD CAGE VINAYAK Referred By : HOLLAND ORDONEZ Acquired by : PATRICE PERAZA Hemogram on 09-23-2019 Erythrocyte distribution width 12.7 % Normal 11.6-14.4 [facility] (RBC) [Ratio] Comment on above: Performed By: #### CBC1 #### [facility] [address] [place], [place] [address] Hematocrit (Bld) [Volume 40.2 % Normal 40.1-51.0 [facility] fraction] Comment on above: Performed By: #### CBC1 #### [facility] [address] [place], [place] [address] Hemoglobin (Bld) [Mass/Vol] 13.0 g/dL Low 13.7-17.5 [facility] Comment on above: Performed By: #### CBC1 #### [facility] [address] [place] [address] MCH (RBC) [Entitic mass] 31.4 pg Normal 25.7-32.2 [facility] Comment on above: Performed By: #### CBC1 #### [facility] [address] [place] [address] MCHC (RBC) [Mass/Vol] 32.3 % Normal 32.3-36.5 [facility] Comment on above: Performed By: #### CBC1 #### [facility] [address] [place] [address] MCV (RBC) [Entitic vol] 97.1 fL High 83.2-95.6 [facility] Comment on above: Performed By: #### CBC1 #### [facility] [address] [place] [address] Platelet mean volume (Bld) 9.7 fL Normal 8.7-12.0 [facility] [Entitic vol] Comment on above: Performed By: #### CBC1 #### [facility] [address] [place], [place] [address] Platelets (Bld) [#/Vol] 194 thou/cmm Normal 141-365 [facility] Comment on above: Performed By: #### CBC1 #### [facility] [address] [place], [place] [address] RBC (Bld) [#/Vol] 4.14 mil/cmm Low 4.63-6.08 [facility] Comment on above: Performed By: #### CBC1 #### [facility] [address] [place], [place] [address] RDW SD 45.2 fl Normal 36.1-45.8 [facility] Comment on above: Performed By: #### CBC1 #### [facility] [address] [place], [place] [address] WBC (Bld) [#/Vol] 8.83 thou/cmm Normal 4.23-9.07 [facility] Comment on above: Performed By: #### CBC1 #### [facility] [address] [place], [place] [address] MDRD GFR on 09-23-2019 GFR/1.73 sq M predicted mL/min/{1.73_m2} Normal >60mL/min/1.7 3m2 [facility] among non-blacks MDRD System (S/P/Bld) [Vol rate/Area] Comment on above: Result Comment: If the patie nt is , multiply the result by 1.210. Performed By: #### GFR #### [facility] [address] [place], [place] [address] XR CHEST 2V FRONTAL/LAT on 09-23-2019 XR CHEST 2V FRONTAL/LAT * * *Final Report* * * Normal [facility] DATE OF EXAM: Sep 23 2019 [...] is no evidence of pneumothorax following new anan cement of cardiac pacemaker device. There continues to be chronic inters titial lung disease which is stable and unchanged from April 27. Branch Operations Specialist: NELSON Transcribe Date/Time: Sep 23 2019 9:53A Dictated by : PAUL SHUKLA MD This examination was interpreted and the report review ed and electronically signed by: PAUL SHUKLA MD on Sep 23 2019 9:55AM EST ANES POST on 09-22-2019 ANES POST HNO ID: [id number] Normal [facility] Author: Asia Champion Service: Anesthesiology Author [...] PREOP on 09-22-2019 ANES PREOP HNO ID: [id number] Normal [facility] Medical Author: Asia Drake enter Service: Anesthesiology [...] Interstitial Lung Disease (Hcc) Bradycardia Atherosclerosis of Ione Coronary Artery of Ione He art Without Angina Pectoris Chronic Obstructive Pulmonary Disease With (Acute) Exa cerbation (Hcc) Dizziness and Giddiness Fatigue Gout Vasculitis (Ltac, [facility]ated [facility]) PAST MEDICAL HISTORY Diagnosis Date - Anal stenosis 04/05/2013 - ANEMIA NORMOCYTIC 07/21/2006 - CAD (coronary artery disease) two-vessel CABG 1996 ([facility]); PCI/stent LCX 2010 - CKD (chronic kidney disease) stage 3, GFR 30-59 ml/m in ([facility]) 08/11/2016 - Closed fracture of [...] mention of complication - Interstitial lung disease ([facility]) 05/18/2017 - Mild cognitive disorder 08/12/2015 - Mixed hyperlipidemia Hyperlipidemia - Occlusion and stenosis of carotid artery without men tion of cerebral infarction 07/08/2010 - OM (osteomyelitis) ([facility]) 04/03/2010 - PAC (premature atrial [...] canela nt; - CAROTID SURGERY Left 1997 CAROTID-[place]-- left - CAROTID SURGERY Right 05/04/2014 RIGHT CAROTID - CATARACT EXTRACTION HX Bilateral 2015 - COLONOSCOP W/ OR W/O BRSH SPEC 08/10/2014 - CORONARY ARTERY BYPASS GRAFT 06/06/1997 CABG 2 vessel: VIZCARRA Y graft to LAD and diagonal branch ; [facility], Dr. Valenzuela - ECHOCARDIOGRAM 02/18/2018 normal [...] STRESS 02/18/2018 no ischemia or scar - HI ANESTH,OPEN HEART; W/O PUMP OXYEGENATOR 1996 triple bypass - REMOVAL OF TONSILS,<12 Y/O 1941 Tonsillectomy - SIGMOIDOSCOPY FLEX DIAG 06/19/08 - TOTAL KNEE REPLACEMENT Right 05/02/2012 Knee replacement, total Right Dr. Gentile [facility] - TRANSURETHRAL ELEC-SURG PROSTATECTOM 2005 TURP - VASECTOMY 1971 FAMILY HISTORY Problem Relation Age of Onset - No Known Problems Mother from sepsis - Heart Father [place] - Diabetes Father - Heart Attack Father [...] 1 tablet by melissa th once daily. [place]-3 Fatty Acids (FISH OIL) 500 mg cap [...] 0.4 mg cap Take 1 capsule by [facility] daily at bedtime. fluticasone (FLONASE) 50 mcg/actuation [...] September 22, 2019 TIME: 8:33 AM CSN: [id number] Basic Panel on 09-22-2019 Creatinine [Mass/Vol] 1.24 mg/dL High 0.67-1.17 [facility] Comment on above: Performed By: #### P8 #### [facility] [address] [place], [place] [address] Anion gap [Moles/Vol] 8 mmol/L Normal 8-16 [facility] Comment on above: Performed By: #### P8 #### [facility] [address] [place], [place] [address] Calcium [Mass/Vol] 9.3 mg/dL Normal 8.5-10.1 [facility] Comment on above: Performed By: #### P8 #### [facility] [address] [place], [place] [address] CO2 [Moles/Vol] 30 mmol/L Normal 21-32 [facility] Comment on above: Performed By: #### P8 #### [facility] [address] [place], [place] [address] Glucose [Mass/Vol] 102 mg/dL High 70-99 [facility] Comment on above: Performed By: #### P8 #### [address] [address] Urea nitrogen [Mass/Vol] 16 mg/dL Normal 7-18 [facility] Comment on above: Performed By: #### P8 #### [facility] [address] [place] [address] Chloride [Moles/Vol] 104 mmol/L Normal 98-107 [facility] Comment on above: Performed By: #### P8 #### [facility] [address] [place] [address] Potassium [Moles/Vol] 4.2 mmol/L Normal 3.5-5.1 [facility] Comment on above: Performed By: #### P8 #### [facility] [address] [place] [address] Sodium [Moles/Vol] 138 mmol/L Normal 136-145 [facility] Comment on above: Performed By: #### P8 #### [facility] [address] [place] [address] HISTORY PHYSICAL on 09-22-2019 HISTORY HNO ID: [id number] Normal [place] PHYSICAL Author: Holland Ordonez General Service: Electrophysiology M edical Author Type: Physician Antoni cevallos Type: HANDP Filed: 09/22/2019 10:09 AM Note Text: [facility] Electrophysiology (EP) EP Attending HANDP from 08/25/2019 copied forward here: <<<<<<<<<<<<<<<<<<<<<<<<<<<<<<<<<<<<<<<<<<<<<<<<<<& lt;<<<<< Office Visit 08/25/2019 [facility] Cardiology [place] Holland Ordonez Cardiology Bradycardia +4 more Dx New Patient ; Referred by Augusto Tran Reason for Visit Progress Notes Expand All Collapse All PRIMARY CARE PHYSICIAN: Jason Snider MD [address] [place] [address] ? REFERRING PHYSICIAN: Augusto Tran MD ([facility]) [address] [address] ? Patient Care Team: Jason Snider as PCP - General (Internal Medicine ) Augusto Tran as Specialty Measurement Operator (Cardiology) Kenan Mari as Specialty Measurement Operator (Pulmonary Disease) Lorne Andrew Jr. as Specialty Measurement Operator (Ophtha lmology) Aracelis Aceves as Specialty Measurement Operator (Podiatry) Claude He as Specialty Measurement Operator (Ce rebrovascular) ? CHIEF COMPLAINT: Evaluation of [...] walk one mile to the local [employer] for break fast, then walk the one [...] symptoms. He has been evaluated by a irrigator gravity flow, Dr. Tran. Mr. oCrtes has a hist ory of coronary artery [...] artery disease) ? ? two-vessel CABG 1996 ([facility]); PCI/stent L CX 2010 - CKD (chronic kidney disease) stage 3, GFR 30-59 ml/m in ([facility]) 08/11/2016 - Closed fracture of [...] graft to LAD and diagonal bran ch; [facility], Dr. Valenzuela - ECHOCARDIOGRAM ? 02/18/2018 [...] 02/18/2018 ? no ischemia or scar - HI ANESTH,OPEN HEART; W/O PUMP OXYEGENATOR ? 1996 ? triple bypass - REMOVAL OF TONSILS,<12 Y/O ? 194 ? Tonsillectomy - SIGMOIDOSCOPY FLEX DIAG ? 06/19/08 - TOTAL KNEE REPLACEMENT Right 05/02/2012 ? Knee replacement, total Right Dr. Gentile [facility] - TRANSURETHRAL ELEC-SURG PROSTATECTOM ? 2005 ? [...] from sepsis - Heart Father ? ? [place] - Diabetes Father ? - Heart Attack [...] 1 tablet by mo uth once daily. [place]-3 Fatty Acids (FISH OIL) 500 mg cap, [...] 42 bpm; borderlin e first-degree AV block (HI 200 ms); normal QRS duration 112 ms ? I have personally reviewed the Electrocardiogram. ? ASSESSMENT/PLAN: 1. Bradycardia - ICD9: 427.89, ICD10: R00.1 (primary d iagnosis) 2. Atherosclerosis of [place] coronary artery of [place] heart without angina pectoris - ICD9: 414.01, [...] told by his local physicians including his gypsum calciner that the exertional shortn ess of breath [...] that he has an appointment wi his gypsum calciner, Dr. Mari, sometime very soon and woul [...] lung disease is primarily responsible for Mr. Geramine noguera's symptoms. I will have my office [...] Erythrocyte distribution width 12.9 % Normal 11.6-14.4 [facility] (RBC) [Ratio] Comment on above: Performed By: #### CBC1 #### [place] [address] Hematocrit (Bld) [Volume 41.4 % Normal 40.1-51.0 [facility] fraction] Comment on above: Performed By: #### CBC1 #### [place] [address] Hemoglobin (Bld) [Mass/Vol] 13.4 g/dL Low 13.7-17.5 [facility] Comment on above: Performed By: #### CBC1 #### [place] [address] MCH (RBC) [Entitic mass] 31.7 pg Normal 25.7-32.2 [facility] Comment on above: Performed By: #### CBC1 #### [place] [address] MCHC (RBC) [Mass/Vol] 32.4 % Normal 32.3-36.5 [facility] Comment on above: Performed By: #### CBC1 #### [place] [address] MCV (RBC) [Entitic vol] 97.9 fL High 83.2-95.6 [facility] Comment on above: Performed By: #### CBC1 #### [facility] [address] [place], [place] [address] Platelet mean volume (Bld) 9.5 fL Normal 8.7-12.0 [facility] [Entitic vol] Comment on above: Performed By: #### CBC1 #### [facility] [address] [place], [place] [address] Platelets (Bld) [#/Vol] 216 thou/cmm Normal 141-365 [facility] Comment on above: Performed By: #### CBC1 #### [facility] [address] [place], [place] [address] RBC (Bld) [#/Vol] 4.23 mil/cmm Low 4.63-6.08 [facility] Comment on above: Performed By: #### CBC1 #### [facility] [address] [place] [address] RDW SD 45.5 fl Normal 36.1-45.8 [facility] Comment on above: Performed By: #### CBC1 #### [facility] [address] [place], [place] [address] WBC (Bld) [#/Vol] 8.38 thou/cmm Normal 4.23-9.07 [facility] Comment on above: Performed By: #### CBC1 #### [facility] [address] [place] [address] NURSING PROG on 09-22-2019 NURSING HNO ID: [id number] [facility] PROG Author: Amie (Rn) YOANA Bergman General Service: Nursing Medical Author Type: Registered Nurse Center Type: Nursing Progress Note Filed: 09/22/2019 1:42 PM Note Text: Nursing Progress Note Patient Name: Navid Cortes Patient Location: Notified Juan LAUNDRY ROUTE DRIVER with EP that pt's BP has been elevat ed since he has been on the floor, and that he took his lisinopril thi s AM. Reviewed VS, procedure chart and chart with LAUNDRY ROUTE DRIVER, she stated to mani r her in one hour is it remains elevated by paging #[phone] This note was completed by: Amie Bergman RN PROGRESS on 09-22-2019 PROGRESS HNO ID: [id number] [facility] Author: Elizabeth (Rn) YOANA Pardo Service: Electrophysiology Author Type: Registered Nurse Type: Progress Notes Filed: 09/22/2019 3:04 PM Note Text: Pacemaker discharge teaching reviewed with patient and family. IGOR on 08-29-2019 CNPN Telephone (AGCARDPOB) Normal [facility] NAVID CORTES ([id number]) 1935 M Medical Date Time Provider Department [...] bef ore procedure. Patient will need a local company flatbed truck driver day of procedure. Patient should co ntinue to take medications as prescribed morning of pro cedure with just a sip of water unless otherwise instructed. Spoke with spouse, confirmed date and verbalized under standing of all instructions given. Traci Lau RN 08/30/2019 9:22 AM Signed Pt's name has been added to bronte procedure board. Annabelle Lau RN Allergies As [...] TA* TAKE 3 TABLETS ONCE A W TONAWANDA FAMOTIDINE 20 MG TABLET Take 1 tablet [...] More... Bradycardia [R00.1] INVALID FOR* Atherosclerosis of stillaguamish coronary artery of na*INVALI D FOR* Chronic obstructive pulmonary disease with (acu*INVALI D FOR* Dizziness and giddiness [R42] INVALID FOR* Fatigue [R53.83] INVALID FOR* Gout [M10.9] INVALID FOR* Vasculitis (HCC) [I77.6] INVALID FOR* Encounter Status:Closed by TRACI FLORES on 08/29/19 HOSP on 08-28-2019 HOSP Patient:Navid Cortes Normal [facility] MRN: [place] Height:6' 0 (1.829 m) Weight:173 lb 9.6 [...] mg tablet clopidogrel (PLAVIX) 75 mg tablet [place]-3 Fatty Acids (FISH OIL) 500 mg cap [...] disease (HCC) [J84.9] Bradycardia [R00.1] Atherosclerosis of still[place] coronary artery of [place] he art without angina pectoris [I25.10] Chronic [...] 41.4 % 09/22/2019 51.0 40.1 Progress Notes ([facility]): Nicol Krishnamurthy LPN 09/11/2019 9:40 AM [...] bef ore procedure. Patient will need a local company flatbed truck driver day of pr ocedure. Patient should [...] (AGCARDPOB) Normal [facility] NAVID CORTES ([id number]) 1935 M Medical Date Time Provider Department Center 08/25/19 9:20 AM HOLLAND ORDONEZ AGCDEANNA During your visit today, we recorded the following inf ormation about you: Pulse Respiration Blood pressure Weight 47/minute 16/minute 140/66 79.7 kg Height 1.829 m Holland Ordonez MD 08/25/2019 8:15 PM Signed PRIMARY CARE PHYSICIAN: Jason Snider MD [address] [place] [address] REFERRING PHYSICIAN: Augusto Tran MD ([facility]) [address] [address] Patient Care Team: Jason Snider as PCP - General (Internal Medicine ) Augusto Tran as Specialty Measurement Operator (Cardiology) Kenan Mari as Specialty Measurement Operator (Pulmonary Disease) Lorne Andrew Jr. as Specialty Measurement Operator (Ophtha lmology) Aracelis Aceves as Specialty Measurement Operator (Podiatry) Claude He as Specialty Measurement Operator (Ce rebrovascular) CHIEF COMPLAINT: Evaluation of arrhythmia [...] They walk one mile to the local [employer] restaurant for breakfast, then walk the one [...] ymptoms. He has been evaluated by a irrigator gravity flow, Dr. Tran. Mr. Cortes has a history [...] CAD (coronary artery disease) two-vessel CABG 1996 ([facility]); PCI/stent LCX 2010 - CKD (chronic kidney disease) stage 3, GFR 30-59 ml/m in ([facility]) 08/11/2016 - Closed fracture of [...] mention of complication - Interstitial lung disease ([facility]) 05/18/2017 - Mild cognitive disorder 08/12/2015 - Mixed hyperlipidemia Hyperlipidemia - Occlusion and stenosis of carotid artery without men tion of cerebral infarction 07/08/2010 - OM (osteomyelitis) ([facility]) 04/03/2010 - PAC (premature atrial [...] Y graft to LAD and diagonal branch; [facility], Dr. Valenzuela - ECHOCARDIOGRAM 02/18/2018 normal [...] STRESS 02/18/2018 no ischemia or scar - HI ANESTH,OPEN HEART; W/O PUMP OXYEGENATOR 1996 triple bypass - REMOVAL OF TONSILS,<12 Y/O 1941 Tonsillectomy - SIGMOIDOSCOPY FLEX DIAG 06/19/08 - TOTAL KNEE REPLACEMENT Right 05/02/2012 Knee replacement, total Right Dr. Gentile [facility] - TRANSURETHRAL ELEC-SURG PROSTATECTOM 2006 TURP - VASECTOMY 1971 SOCIAL HISTORY Social History Tobacco Use - Smoking status: Never Smoker - Smokeless tobacco: Never Used Substance Use Topics - Alcohol use: No - Drug use: No FAMILY HISTORY Problem Relation Age of Onset - No Known Problems Mother from sepsis - Heart Father [place] - Diabetes Father - Heart Attack Father [...] 1 tablet by mo uth once daily. [place]-3 Fatty Acids (FISH OIL) 500 mg ca p, Take 1 capsule by mouth once daily. nitroglycerin sublingual (NI TROQUICK) 0.4 mg SL tablet, Dissolve 1 tablet under the tongue as needed. FOR CHEST PAIN. IF NO RELIEF KELSI L 911 fluticasone (FLONASE) 50 mcg/actuation nasal spray, Us e 2 Sprays in each nostril once daily. Rinse mouth after use. Polyethylene Glycol 3350 (RI RALAX) 17 gram/dose powder, Take 17 g [...] 42 bpm; bor derline first-degree AV block (HI 200 ms); normal QRS duration 112 ms I have personally reviewed the Electrocardiogram. ASSESSMENT/PLAN: 1. Bradycardia - ICD9: 427.89, ICD10: R00.1 (primary d iagnosis) 2. Atherosclerosis of still[place] coronary artery of still[place] heart without angina pectoris - ICD9: 414.01, [...] told by his local physicians including his gypsum calciner t hat the exertional shortness of breath [...] that he has an appointment with his gypsum calciner, Dr. Mari, someti me very soon and [...] Elen Allen CMA Referring Provider: AUGUSTO TRAN [[id number]] Allergies As of Date: 08/25/2019 Noted Allergy [...] Visit Diagnosis:Bradycardia [R00.1] Other Visit Diagnoses:Atherosclerosis of stillagu[place] riley ry artery of stillagu[place] heart without angina pectoris [I25.10] Chronic kidney disease, stage 3 (moderate) (HCC) [N18. 3] Fatigue, unspecified type [R53.83] Dizziness and giddiness [R42] Order(s):ECG B/O W INTERP (MED OFFICE) [ECG06] Order # : [id number] SURGICAL REQUEST - ELECTIVE [[id number]] Order #: [id number]: 1 Prescriptions as of 08/25/2019 Sig: OFLOXACIN 0.3 % EYE DROPS INSTILL 1 DROP IN THE RIGHT E* LISINOPRIL 10 MG TABLET Take 1 tablet by mouth once d* METHOTREXATE SODIUM 2.5 MG TA* TAKE 3 TABLETS ONCE A W TONAWANDA FAMOTIDINE 20 MG TABLET Take 1 tablet [...] More... Bradycardia [R00.1] INVALID FOR* Atherosclerosis of still[place] coronary artery of na*INVALI D FOR* Chronic [...] on PROGRESS on 08-25-2019 PROGRESS HNO ID: [id number] Normal [facility] Author: Holland Geller [facility] Service: ? Author Type: Physician Type: Progress Notes Filed: 08/25/2019 8:15 PM Note Text: PRIMARY CARE PHYSICIAN: Jason Snider MD [address] [facility] [address] REFERRING PHYSICIAN: Augusto Tran MD ([facility]) [address] [facility] [address] [address] Patient Care Team: Jason Snider as PCP - General (Internal Medicine ) Augusto Tran as Specialty Measurement Operator (Cardiology) Kenan Mari as Specialty Measurement Operator (Pulmonary Disease) Lorne Andrew Jr. as Specialty Measurement Operator (Ophtha lmology) Aracelis Aceves as Specialty Measurement Operator (Podiatry) Claude He as Specialty Measurement Operator (Ce rebrovascular) CHIEF COMPLAINT: Evaluation of arrhythmia [...] They walk one mile to the local [employer] restaurant for break fast, then walk the [...] symptoms. He has been evaluated by a irrigator gravity flow, Dr. Tran. Mr. Cortes has a hist [...] CAD (coronary artery disease) two-vessel CABG 1996 ([facility]); PCI/stent LCX 2010 - CKD (chronic kidney disease) stage 3, GFR 30-59 ml/m in ([facility]) 08/11/2016 - Closed fracture of [...] mention of complication - Interstitial lung disease ([facility]) 05/18/2017 - Mild cognitive disorder 08/12/2015 - Mixed hyperlipidemia Hyperlipidemia - Occlusion and stenosis of carotid artery without men tion of cerebral infarction 07/08/2010 - OM (osteomyelitis) ([facility]) 04/03/2010 - PAC (premature atrial [...] graft to LAD and diagonal branch ; [facility], Dr. Valenzuela - ECHOCARDIOGRAM 02/18/2018 normal [...] STRESS 02/18/2018 no ischemia or scar - HI ANESTH,OPEN HEART; W/O PUMP OXYEGENATOR 1996 triple bypass - REMOVAL OF TONSILS,<12 Y/O 1941 Tonsillectomy - SIGMOIDOSCOPY FLEX DIAG 06/19/08 - TOTAL KNEE REPLACEMENT Right 05/02/2012 Knee replacement, total Right Dr. Gentile [facility] - TRANSURETHRAL ELEC-SURG PROSTATECTOM 2005 TURP - VASECTOMY 1971 SOCIAL HISTORY Social History Tobacco Use - Smoking status: Never Smoker - Smokeless tobacco: Never Used Substance Use Topics - Alcohol use: No - Drug use: No FAMILY HISTORY Problem Relation Age of Onset - No Known Problems Mother from sepsis - Heart Father [place] - Diabetes Father - Heart Attack Father [...] 1 tablet by mo uth once daily. [place]-3 Fatty Acids (FISH OIL) 500 mg cap, [...] 42 bpm; borderlin e first-degree AV block (HI 200 ms); normal QRS duration 112 ms I have personally reviewed the Electrocardiogram. ASSESSMENT/PLAN: 1. Bradycardia - ICD9: 427.89, ICD10: R00.1 (primary d iagnosis) 2. Atherosclerosis of [place] coronary artery of [place] heart without angina pectoris - ICD9: 414.01, [...] told by his local physicians including his gypsum calciner that the exertional shortn ess of breath [...] that he has an appointment wi his gypsum calciner, Dr. Mari, sometime very soon and woul [...] 11-11-2022 Body temperature 96.91 [degF] Geni Migdalia BILINGUAL STUDENT TUTOR.[facility] 15:0 Work Phone: 11-11-2022 Body weight 85.73 kg Geni Migdalia BILINGUAL STUDENT TUTOR.[facility]: Work Phone: 11-11-2022 Diastolic blood 80 mm[Hg] Geni Migdalia BILINGUAL STUDENT TUTOR.[facility] 15:050 pressure Work Phone: 11-11-2022 Heart rate 60 /min Geni Migdalia BILINGUAL STUDENT TUTOR.[facility]: Work Phone: 11-11-2022 Respiratory rate 16 /min Geni Migdalia BILINGUAL STUDENT TUTOR.[facility] 15: Work Phone: 11-11-2022 SaO2% (BldA) [Mass 98 % Geni Migdalia BILINGUAL STUDENT TUTOR.[facility] 15:050 fraction] Work Phone: 11-11-2022 Systolic blood 142 mm[Hg] Geni Migdalia BILINGUAL STUDENT TUTOR.[facility] 15:050 pressure Work Phone: 09-17-2022 Body temperature 97.5 [degF] Jason Snider MD [facility] 18: Work Phone: 09-17-2022 Body weight 80.74 kg Jason lai Clinic 18:0 Work Phone: 09-17-2022 Diastolic blood 84 mm[Hg] Jason Snider MD [facility] 18:0400 pressure Work Phone: 09-17-2022 Heart rate 60 /min Jason lai Clinic [id number]:100400 Work Phone: 09-17-2022 Respiratory rate 16 /min [facility] 18:100400 Work Phone: 09-17-2022 SaO2% (BldA) [Mass 98 % Jason Snider MD [facility] 18:100400 fraction] Work Phone: 09-17-2022 Systolic blood 134 mm[Hg] Jason [facility] 18:100400 pressure Work Phone: 05-29-2022 Body weight 79.38 kg [facility] [id number] Work Phone: 05-29-2022 Diastolic blood 80 mm[Hg] Jason Minor [facility] [id number] pressure Work Phone: 05-29-2022 Heart rate 60 /min [facility] [id number] Work Phone: 05-29-2022 SaO2% (BldA) [Mass 96 % Jason Snider MD [facility] [id number] fraction] Work Phone: 05-29-2022 Systolic blood 136 mm[Hg] [facility] [id number] pressure Work Phone: Encounters Encounter Date Encounter Type Care Provider Facility Start: 01-06-2023 ambulatory JASON SNIDER Facility:[facility] End: 01-06-2023 Clinic Hospital Start: 01-06-2023 Patient encounter Aracelis Aceves Podiatry End: 01-06-2023 procedure Work Phone: Comment on above: Hyperkeratosis (Primary Dx); Onychomycosis; Amputation of little toe, ri ght, subsequent encounter ([facility]); PAD (peripheral artery disea se) ([facility]); Hammer toes of both feet Start: 11-11-2022 ambulatory JASON SNIDER Facility:[facility] End: 11-11-2022 Hospital Start: 11-11-2022 ambulatory ARACELISTAMMY MCGILLLOW Facility:[facility] End: 11-11-2022 Hospital Start: 11-11-2022 Patient encounter Geni Negron JILL[facility] End: 11-11-2022 procedure Work Phone: [...] both feet Start: 11-06-2022 ambulatory JASON SNIDER Facility:[facility] End: 11-06-2022 Hospital Start: 11-02-2022 ambulatory JASON SNIDER Facility:[facility] End: 11-02-2022 Hospital Start: 09-25-2022 Telephone encounter [facility] [place] Work Phone: Comment on above: Results Start: 09-22-2022 Refill Jason Snider MD Internal Medicine [place] Work Phone: Comment on above: Refill Request tamsulosin refill needed Start: 09-17-2022 ambulatory JASON SNIDER Facility:[facility] End: 09-17-2022 Hospital Start: 09-17-2022 Patient encounter Jason Snider MD [facility] [place] End: 09-17-2022 procedure Work Phone: Comment on above: 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 (HCC) (Primary Dx); Essential hypertension; Idiopathic peripheral neurop athy Start: 09-16-2022 ambulatory ARACELIS ACEVES Facility:[facility] End: 09-16-2022 Hospital Start: 09-16-2022 Patient encounter Aracelis Aceves Podiatry End: 09-16-2022 procedure Work Phone: Comment on above: Hyperkeratosis (Primary Dx) Start: 08-25-2022 ambulatory Jason Snider MD Internal Medicine [place] Work Phone: Comment on above: 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 [employer] charles Start: 08-14-2022 ambulatory ALEIDA THOMAS Facility:[id number] End: 08-14-2022 Start: 08-14-2022 ambulatory Aleida Thomas OT/L [facility] [place] End: 08-14-2022 [place] Comment on above: Late onset Alzheimer's demen tia without behavioral disturbance (HCC) (Primary Dx) Start: 08-05-2022 ambulatory ARACELIS ACEVES Facility:[facility] End: 08-05-2022 Hospital Start: 08-05-2022 Patient encounter Aracelis Aceves Podiatry End: 08-05-2022 procedure Work Phone: Comment on above: Hyperkeratosis (Primary Dx); Hammer toes of both feet; Onychomycosis; Amputation of little toe, ri ght, subsequent encounter (HCC) Start: 07-13-2022 ambulatory Jason Snider MD [facility] Work Phone: Start: 07-13-2022 Patient encounter Jason Snider MD [facility] [place] Work Phone: [place] Comment on above: Appointment Start: 07-05-2022 ambulatory Jason Snider MD Internal Medicine [place] Work Phone: Comment on above: Safety concerns for Dad/Art Start: 06-24-2022 ambulatory ARACELIS ACEVES Facility:[facility] End: 06-24-2022 Hospital Start: 06-24-2022 Patient encounter Aracelis Aceves Podiatry End: 06-24-2022 procedure Work Phone: Comment on above: Hyperkeratosis (Primary Dx); PAD (peripheral artery disea se) (HCC); Hammer toes of both feet Start: 05-29-2022 ambulatory JASON SNIDER Facility:[facility] End: 05-30-2022 Hospital Start: 05-29-2022 Patient encounter Jason Snider MD [facility] [place] End: 05-29-2022 procedure Work Phone: Comment on above: Asthenia (Primary Dx); Essential hypertension; Dizziness; 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 (HCC); Mild protein-calorie malnutr ition (HCC); Stage 3a chronic kidney dise ase (HCC); Vasomotor rhinitis Start: 05-18-2022 ambulatory JASON SNIDER Facility:[facility] End: 05-18-2022 Hospital Start: 05-13-2022 ambulatory Jason Snider MD Internal Medicine [place] End: 05-13-2022 Work Phone: Comment on above: Recent ongoing medical shannan rns Start: 05-13-2022 Patient encounter procedure Aracelis Aceves P odiatry End: 05-13-2022 Work Phone: Comment on above: Hyperkeratosis (Primary Dx); PAD (peripheral artery disea se) ([facility]); Hammer toes of both feet; Onychomycosis; Amputation of little toe, ri ght, subsequent encounter ([facility]) Start: 04-05-2022 ambulatory Jason Snider MD Internal Medicine [place] Work Phone: Comment on above: Immunizations update and que stion Start: 03-31-2022 ambulatory ARACELIS ACEVES Facility:[facility] End: 03-31-2022 Hospital Start: 03-31-2022 Patient encounter Aracelis Aceves Podiatry End: 03-31-2022 procedure Work Phone: Comment on above: Hyperkeratosis (Primary Dx); PAD (peripheral artery disea se) ([facility]); Hammer toes of both feet Start: 03-27-2022 Refill Jason Snider MD Internal Medicine [place] Work Phone: Comment on above: Refill Request Start: 02-17-2022 ambulatory ARACELIS ACEVES Facility:[facility] End: 02-17-2022 Hospital Start: 02-17-2022 Patient encounter Aracelis Aceves Podiatry End: 02-17-2022 procedure Work Phone: Comment on above: Hammer toes of both feet (Pr imary Dx); Hyperkeratosis; PAD (peripheral artery disea se) (HCC) Start: 02-17-2022 Telephone encounter Jason Snider MD Inte rnal Medicine Work Phone: [place] Comment on above: Release Of Medical Records Start: 01-16-2022 ambulatory JASON SNIDER Facility:[facility] End: 01-16-2022 Hospital Start: 01-09-2022 ambulatory JASON SNIDER Facility:[facility] End: 01-09-2022 Hospital Start: 06-15-2021 ambulatory Jason Snider MD [facility] Work Phone: Start: 06-15-2021 Patient encounter Jason Snider MD [facility] [place] procedure Work Phone: Comment on above: RE: Upcoming Appointment Lb conte Plan of Treatment Date Care Activity Detail Author Start: 08-17-2027 Urine microalbumin profile DTAP,TDAP,TD (1 - T dap) [facility] Comment on above: Postponed from 08/18/2017 (P ostponed To Appropriate Date) Start: 05-18-2025 DIABETES SCREEN DIABETES SCREEN [facility] ic Start: 01-09-2025 DIABETES SCREEN DIABETES SCREEN [facility] ic Start: 11-02-2023 Hepatitis B surface LDL CHOLESTEROL [facility] antibody level Start: 11-22-2022 ADVANCE DIRECTIVE ADVANCE DIRECTIVE [facility] DISCUSSION DISCUSSION Start: 07-31-2022 Hepatitis B surface LDL CHOLESTEROL [facility] antibody level Start: 07-29-2022 COVID-19 VACCINE (5 - COVID-19 VACCINE (5 - Cl [facility] Booster for Moderna Booster for Moderna series) series) Start: 07-23-2022 Influenza vaccination INFLUENZA (#1) [facility] Start: 05-15-2022 CBC panel - Blood by CBC Lab Routine [facility] End: 07-15-2022 Automated count General weakness Work Phone: Expected: 05/15/2022, Expires: 07/15/2022 Comment on above: Expected: 05/15/2022, s: 07/15/2022 Start: 05-15-2022 Cobalamin (Vitamin B12) [facility]LO[facility] End: 07-15-2022 [Mass/volume] in Serum Lab Routine General Work Phone: or Plasma weakness Expected: 05/15/2022, Expires: 07/15/2022 Comment on above: Expected: 05/15/2022, s: 07/15/2022 Start: 05-15-2022 Comprehensive metabolic COMP METABOLIC PANEL [facility] End: 07-15-2022 2000 panel - Serum or Lab Routine General Work P rod: Plasma weakness Expected: 05/15/2022, Expires: 07/15/2022 Comment on above: Expected: 05/15/2022, s: 07/15/2022 Start: 05-15-2022 Thyrotropin TSH BLD Lab Routine [facility] End: 07-15-2022 [Units/volume] in Serum General weakness Work Ph one: or Plasma Expected: 05/15/2022, Expires: 07/15/2022 Comment on above: Expected: 05/15/2022, s: 07/15/2022 Start: 01-09-2022 COVID-19 VACCINE (4 - COVID-19 VACCINE (4 - Cl [facility] Booster for Moderna Booster for Moderna series) series) Start: 11-22-2021 ADVANCE DIRECTIVE ADVANCE DIRECTIVE [facility] DISCUSSION DISCUSSION [facility] Immunizations Immunization Date Immunization Notes Care Provider Facility 08-11-2022 influenza (aIIV4) Jason Snider MD [facility] vaccine, age 65+ yr, Work Phone: Work Phone: quadrivalent, PF (FLUAD QUADRIVALENT) 08-07-2021 influenza, high-dose, Jason Snider MD [facility] quadrivalent vaccine Work Phone: Work Phone: (FLUZONE HIGH DOSE QUADRIVALENT) 01-29-2021 zoster vaccine Jason Snider MD [facility] recombinant Work Phone: 01-10-2021 COVID-19 vaccine, full Jason Lai [facility] dose (MODERNA) Work Phone: Work Phone: 12-12-2020 COVID-19 vaccine, full Jason Lai [facility] dose (MODERNA) Work Phone: Work Phone: 08-10-2020 influenza, injectable, Jason Lai [facility] quadrivalent, Work Phone: Work Phone: preservative free 08-10-2020 zoster vaccine Jasno Snider MD [facility] recombinant Work Phone: [place] ork Phone: 09-04-2019 influenza, seasonal, Jason Snider MD [facility] injectable, preservative Work Phone: Work Phone: free 08-29-2018 influenza, high dose Jason Snider MD [facility] seasonal, Work Phone: W ork Phone: preservative-free 09-07-2017 influenza, seasonal, Jason Snider MD [facility] injectable, preservative Work Phone: Work Phone: free 08-17-2017 influenza, high dose Jason Snider MD [facility] seasonal, Work Phone: preservative-free 08-17-2017 tetanus and diphtheria Jason Lai [facility] toxoids, adsorbed, Work Phone: preservative free, for adult use (5 Lf of tetanus toxoid and 2 Lf of diphtheria toxoid) 08-05-2016 influenza, high dose Jason Snider MD [facility] seasonal, Work Phone: preservative-free 10-31-2015 influenza, high dose Jason Snider MD [facility] seasonal, Work Phone: W ork Phone: preservative-free 08-12-2015 pneumococcal conjugate Jason Lai [facility] vaccine, 13 valent Work Phone: 08-03-2013 influenza virus vaccine, Jason Snider MD [facility] unspecified formulation Work Phone: Work Phone: 08-10-2011 influenza, seasonal, Jason Snider MD [facility] injectable Work Phone: W ork Phone: 07-17-2011 zoster vaccine, live Jason Snider MD [facility] Work Phone: W ork Phone: 08-21-2010 influenza, seasonal, Jason Snider MD [facility] injectable Work Phone: W ork Phone: 11-02-2009 novel [id number], Jason Snider MD [facility] injectable Work Phone: W ork Phone: 07-21-2006 tetanus and diphtheria Jason Lai [facility] toxoids, adsorbed, Work Phone: preservative free, for adult use (2 Lf of tetanus toxoid and 2 Lf of diphtheria toxoid) 08-22-2004 pneumococcal Jason Snider MD [facility] polysaccharide vaccine, Work Phone: 23 valent 10-12-2002 hepatitis A vaccine, Jason Snider MD [facility] unspecified formulation Work Phone: Work Phone: 10-12-2001 hepatitis A vaccine, Jason Snider MD [facility] unspecified formulation Work Phone: Work Phone: 10-12-2001 tetanus and diphtheria Jason Lai [facility] toxoids, adsorbed, Work Phone: Work Phone: preservative free, for adult use (2 Lf of tetanus toxoid and 2 Lf of diphtheria toxoid) Payers Date Payer Category Payer Medicare AETNA MEDICARE AETNA [id number] MEDICARE PPO [id number] 2021-Present [id number] [address] [place] [address] PPO 2021 Medicare AETNA MEDICARE AETNA [id number] MEDICARE PPO [id number] 2021-Present [phone] [address] [place] [address] PPO 2014 Medicare [id number] Social History Date Type Detail Facility Start: 06-29-2011 Tobacco smoking status Never smoked tobacco [facility] Work Phone: Start: 02-17-2022 Alcohol intake Current non-drinker of [facility] End: 01-06-2023 alcohol (finding) Start: 08-26-2020 History SDOH Alcohol 1 [facility] End: 09-15-2022 Frequency Start: 08-26-2020 History SDOH Alcohol Std 98 [facility] Drinks Start: 08-08-2020 History SDOH Social 3 [facility] End: 09-15-2022 Connections Phone Start: 08-08-2020 History SDOH Social 4 [facility] End: 09-23-2020 [facility] Start: 09-23-2020 History SDOH Physical 6 [facility] Activity DPW Start: 08-08-2020 History SDOH Stress 2 [facility] End: 09-15-2022 Start: 08-08-2020 Education 18 [facility] ic Start: 1935 Sex Assigned At Male [facility] Start: 02-07-2022 Exposure to SARS-CoV-2 Not sure [facility] End: 09-16-2022 (event) Start: 06-29-2011 Tobacco use and exposure Smokeless tobacco [facility] non-user Start: 09-15-2022 History SDOH Alcohol Std 0 [facility] Drinks Clinical Notes 02-03-2020 to 01-06-2023 Aracelis Hannahkaci - 01/06/2023 2:38 PM Edie Garcia LPN - 01/06/2023 2:32 PM Henny Negron APRN.CNP - 11/11/2022 3:12 PM Edie Garcia LPN - 11/11/2022 2:21 PM ESTPatient Instructions Note Date & Type Note Facility 01-06-2023 Note HNO ID: [id number] [facility] Author: Aracelis Aceves [place] Service: ? Author Type: Physician Type: Progress [...] of little toe, rig ht, subsequent encounter ([facility]) (I73.9) PAD (peripheral artery disease) ([facility]) (M20.41, M20.42) Hammer toes of both fee t Plan: Patient was seen and evaluated. Callus very minimal on exam. Continue wi th wider shoes as these appear to be helping. Callus reduced with dremmel Toenails 1-5 left and 1-3 right debrided in length and thickness. Q7 modifier F/u in 2 months Aracelis MIGUEL Aceves 01-06-2023 Note HNO ID: [id number] [facility] Author: Luh Garcia LPN [place] Service: ? Author Type: LICENSED NURSE Type: Progress Notes Filed: 01/06/2023 7:25 PM Note Text: AMB ROOMING INTAKE FLOWSHEET DATA Patient presents with: Right Foot - Established Patient, Follow Up Luh Garcia LPN 01-06-2023 History of Present [facility] illness Narrative Subjective: Patient presents to [...] of little toe, rig ht, subsequent encounter ([facility]) (I73.9) PAD (peripheral artery disease) ([facility]) (M20.41, M20.42) Hammer toes of [...] in this encounter 11-11-2022 Note HNO ID: [id number] [facility] Author: Geni Negron APRN.WOOD [employer] [place] Service: ? Author Type: Nurse Practitioner Type: Progress Notes Filed: 11/11/2022 3:16 PM Note Text: Subjective The history is provided by the patient a nd the spouse. No speech and language assistant was used. 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 ([facility]) 04/04/2021 Esophageal reflux Hemorrhage of rectum and anus History of prediabetes 08/05/2016 Hyperlipidemia Hypertensive kidney disease with stage 3 a chronic kidney disease ([facility]) 11/04/2022 Hypertrophy of prostate with urinary obs truction and other lower urinary tract symptoms (LUTS) 03/19/2006 HYPERURICEMIA 09/29/2006 Idiopathic peripheral neuropathy 0 Internal hemorrhoids without mention of complication Interstitial lung disease ([facility]) 7 Mixed hyperlipidemia Hyperlipidemia Moderate aortic valve stenosis 2 Occlusion and stenosis of carotid artery without mention of cerebral infarction 07/08/2010 OM (osteomyelitis) ([facility]) 04/03/2010 Osteomyelitis of fifth toe of right foot ([facility]) 01/23/2020 PAC (premature atrial contraction) 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 cardiac pacemaker 09/22/2019 OpenBook dual-chamber pacemaker system; indication: symptomatic bradycardia due to sinus node dysfunctio n; system will be MRI conditional after 6 weeks post implant Psoriasis and similar disorders arthritis PSORIATIC ARTHRITIS 09/29/2006 PVC (premature ventricular contraction) Sinus node dysfunction ([facility]) 09/22/2019 Unspecified essential hypertension Essential hypertension Unspecified hypothyroidism Urethral stricture 04/04/2012 Urinary retention 03/16/2013 Vasculitis ([facility]) 04/01/2017 I have confirmed and edited as necessary , the [facility] Review of Systems Constitutional: Negative for [...] warrant ing prompt ER evaluation. Geni Negron APRN.WOOD HANDLER 11-11-2022 Note HNO ID: [id number] [facility] Author: Luh Garcia LPN [place] Service: ? Author Type: LICENSED NURSE Type: Progress Notes Filed: 11/11/2022 2:22 PM Note Text: Per Dr. Aceves, Navid was provided wi th universal sleeve, and instructed/educated in its application, wear, and care. All questions were answered, and patient was able to [facility] competence with the necessary skills to utilize the above eq uipment. Luh Garcia LPN 11-11-2022 Note HNO ID: [id number] [facility] Author: Aracelis Aceves [place] Service: ? Author Type: Physician Type: Progress [...] of little toe, rig ht, subsequent encounter ([facility]) (I73.9) PAD (peripheral artery disease) ([facility]) (M20.41, M20.42) Hammer toes of [...] MIGUEL Plata DPM 11-11-2022 Note HNO ID: [id number] [facility] Author: Aracelis Aceves [place] Service: ? Author Type: Physician Type: Progress Notes Filed: 11/11/2022 2:13 PM Note Text: See above 11-11-2022 Note HNO ID: [id number] [facility] Author: Luh Garcia LPN [place] Service: ? Author Type: LICENSED NURSE Type: [...] Luh Garcia LPN 11-11-2022 History of Present [facility] illness Narrative Images from the original note were not i ncluded. Subjective The history is provided by t he patient and the spouse. No speech and language assistant was used. 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 ([facility]) 04/04/2021 Esophageal reflux Hemorrhage of rectum and anus History of prediabetes 08/05/2016 Hyperlipidemia Hypertensive kidney disease with stage 3a chronic kidney disease ([facility]) 11/04/2022 Hypertrophy of prostate with urinary obstruction and other lower urinary tract symptoms (LUTS) 03/19/2006 HYPERURICEMIA 09/29/2006 Idiopathic peripheral neuropathy 0 Internal hemorrhoids without mention of complication Interstitial lung disease ([facility]) 7 Mixed hyperlipidemia Hyperlipidemia Moderate aortic valve stenosis 2 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 07/08/2010 OM (osteomyelitis) ([facility]) 04/03/2010 Osteomyelitis of fifth toe of right foot ([facility]) 01/23/2020 PAC (premature atrial contraction) 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 cardiac pacemaker 09/22/2019 OpenBook dual-chamb er pacemaker system; indication: symptomatic bradycardia due to sinus node dysfunction; system will be MRI conditional after 6 weeks post implant Psoriasis and similar disorders arthritis PSORIATIC ARTHRITIS 09/29/2006 PVC (premature ventricular contraction) Sinus node dysfunction ([facility]) 09/22/2019 Unspecified essential hypertension Essential hypertension Unspecified hypothyroidism Urethral stricture 04/04/2012 Urinary retention 03/16/2013 Vasculitis ([facility]) 04/01/2017 I have confirmed and edited as necessary , the [facility] Review of Systems Constitutional: Negative for [...] detail warranting prompt ER evaluation. Geni Negron APRN.WOOD HAND[employer]ER documented in this encounter 11-11-2022 History of Present [facility] illness Narrative Per Dr. Aceves, Navid [...] of little toe, rig ht, subsequent encounter ([facility]) (I73.9) PAD (peripheral artery disease) ([facility]) (M20.41, M20.42) Hammer toes of [...] in this encounter 11-06-2022 Note HNO ID: [id number] [facility] Author: Jason Snider MD [place] Service: ? Author Type: Physician Type: Progress Notes Filed: 11/06/2022 10:30 AM Note Text: This note was created using Iumriter. Subjective Navid Cortes is a 86 year [...] Interstitial Lung Disease (Hcc) Bradycardia Atherosclerosis of Ione Coronary Arter y of [place]one Heart Without Angina Pectoris Gout Presence of Cardiac Pacemaker Mixed Hyperlipidemia Essential Hypertension Dementia of The Alzheimer's Type With La te Onset Without Behavioral Disturbance (Hcc) Mild Protein-Calorie Malnutrition (Hcc) Hypertensive Kidney Disease With Stage 3 a Chronic Kidney Disease (Hcc) History of Amputation of Lesser Toe, Rig ht (Hcc) Peripheral Artery Disease (Hcc) Sinus Node Dysfunction ([place]) Current Outpatient Medications Medication Sig tamsulosin (FLOMAX) [...] eyes one day prior to eye injection. [place]-3 Fatty Acids (FISH OIL) 500 mg ca [...] Jason Snider MD 11-06-2022 Note HNO ID: [id number] [facility] Author: Jason Snider MD [place] Service: ? Author Type: Physician Type: Progress Notes Filed: 11/06/2022 10:30 AM Note Text: Nvaid Cortes is a 86 year old male her e for a Medicare Subsequent Annual Wellness Visit Health Risk Assessment In general, health is: Fair Concerns with balance:Not at all Concerns with teeth or dentures:Not at a ll Concerns with sexual function:Not at all [place] anxious, stressed, angry, irritable , lonely, isolated, [...] General (Internal Medicine) Augusto Tran as Specialty Measurement Operator (Cardiology) Kenan Mari as Specialty Consulta nt (Pulmonary Disease) Lorne Andrew Jr., DO as Specialty Measurement Operator (Ophthalmology) Aracelis Aceves as Specialty Measurement Operator (Podiatry) Claude He MD/Diego paniagua MD as Specialty Measurement Operator (Cerebrovascular) Dr. Julia Barron, rheumatology. Medical/Family history [...] kg/(m2). Visual acuity (required for [facility]): follows with optometry/ophthalmology and Right: 20/20 0 Left: 20/ 70 Both: 20/50 Hearing Evaluation: within normal limits Assessment/Plan - Counseled on healthy diet and regular exercise - Fall avoidance - Depression screening 09-25-2022 Miscellaneous Formatting of this note migh t be different from the original. [facility] Notes Printed for pcp to review. P cp signed. This has been faxed back to [place] [employer]. Formatting of this note might be differe nt from the original. Rec'd via fax an OT evaluation driving r eport. This has been entered in scanned documen ts. Please review. documented in this encounter 09-23-2022 Miscellaneous Formatting of this note migh t be different from the original. [facility] Notes Duplicate request. Ayesha Sainz LPN documented in this encounter 09-23-2022 Miscellaneous Formatting of this note is d ifferent from the original. [facility] Notes Patient has been identified by [...] in this encounter 09-18-2022 Note HNO ID: [id number] [facility] Author: Jason Snider MD [place] Service: ? Author Type: Physician Type: Progress Notes Filed: 09/18/2022 7:32 AM Note Text: This note was created using Iumriter. Subjective Navid Cortes is a 86 year [...] Jason Snider MD 09-18-2022 History of Present [facility] illness Narrative This note was created using Iumriter. Subjective Navid Cortes is a 86 year [...] in this encounter 09-17-2022 Note HNO ID: [id number] [facility] Author: Aracelis Aceves [place] Service: ? 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 ([facility]) 04/04/2021 Esophageal reflux Hemorrhage of rectum and anus History of prediabetes 08/05/2016 Hyperlipidemia Hypertrophy of prostate with urinary obs truction and other lower urinary tract symptoms (LUTS) 03/19/2006 HYPERURICEMIA 09/29/2006 Idiopathic peripheral neuropathy 0 Internal hemorrhoids without mention of complication Interstitial lung disease ([facility]) 7 Mixed hyperlipidemia Hyperlipidemia Occlusion and stenosis of carotid artery without mention of cerebral infarction 07/08/2010 OM (osteomyelitis) ([facility]) 04/03/2010 Osteomyelitis of fifth toe of right foot ([facility]) 01/23/2020 PAC (premature atrial contraction) 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 cardiac pacemaker 09/22/2019 OpenBook dual-chamber pacemaker system; indication: symptomatic bradycardia due to sinus node dysfunctio n; system will be MRI conditional after 6 weeks post implant Psoriasis and similar disorders arthritis PSORIATIC ARTHRITIS 09/29/2006 PVC (premature ventricular contraction) Sinus node dysfunction ([facility]) 09/22/2019 Unspecified essential hypertension Essential hypertension Unspecified hypothyroidism Urethral stricture 04/04/2012 Urinary retention 03/16/2013 Vasculitis ([facility]) 04/01/2017 Current Outpatient Medications Medication [...] eyes one day prior to eye injection. [place]-3 Fatty Acids (FISH OIL) 500 mg ca [...] not in cluded)... 09-16-2022 History of Present [facility] illness Narrative FOLLOW UP PODIATRIC OFFICE [...] (H) 4.3 - 5.6 % Final Comment: [place] [employer] guidelines indicate that patients with [...] CAD (coronary artery disease) two-vessel CABG 1996 ([facility]); PCI/stent LCX 2010 Chronic kidney disease, [...] without mention of complication Interstitial lung disease ([facility]) 7 Mixed hyperlipidemia Hyperlipidemia 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 07/08/2010 OM (osteomyelitis) ([facility]) 04/03/2010 Osteomyelitis of fifth toe of right foot ([facility]) 01/23/2020 PAC (premature atrial contraction) 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 cardiac pacemaker 09/22/2019 OpenBook dual-chamb er pacemaker system; indication: symptomatic bradycardia due to sinus node dysfunction; system will be MRI conditional after 6 weeks post implant Psoriasis and similar disorders arthritis PSORIATIC ARTHRITIS 09/29/2006 PVC (premature ventricular contraction) Sinus node dysfunction ([facility]) 09/22/2019 Unspecified essential hypertension Essential hypertension Unspecified hypothyroidism Urethral stricture 04/04/2012 Urinary retention 03/16/2013 Vasculitis ([facility]) 04/01/2017 Current Outpatient Medications Medication [...] eyes one day prior to eye injection. [place]-3 Fatty Acids (FISH OIL) 500 mg ca [...] ANES HRT PERICARDIAL SAC& GRT VESLS W/O EXPERIMENTAL TECHNICIAN OXT 1996 triple bypass ARTHRP KNE CONDYLE&PLATU MEDIAL&LAT COMP ARTMENTS Right 05/02/2012 Knee replacement, total Right [facility]. Gentile [facility] BUNIONECTOMY, [place]-TYPE Right 2009 Right foot CARDIAC CATH 01/28/2011 normal LV systolic fxn; norm al LM, occluded LAD; LCX 50% ostial, mid 80%; left PDA 50% prox; RCA small nondominant with 70% ostial stenosis; SVG-PDA occluded; VIZCARRA Y graft to LAD and diagonal branch patent; CAROTID SURGERY Left 1997 CAROTID[place]-- left CAROTID SURGERY Right 05/04/2014 RIGHT CAROTID CATARACT EXTRACTION HX Bilateral 2016 COLONOSCOPY FLX DX W/COLLJ SPEC WHEN BRIGITTE GONZALEZ 08/10/2014 CORONARY ARTERY BYPASS GRAFT 06/06/1997 CABG 2 vessel: VIZCARRA Y graft to LAD and diagonal branch; [facility], Dr. Valenzuela ECHOCARDIOGRAM 02/18/2018 normal LV [...] in this encounter 09-16-2022 Note HNO ID: [id number] [facility] Author: Luh Garcia LPN [place] Service: ? 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 [...] Driving: Right UE: Sufficient Left UE: Sufficient Pharmacy General Manager: Sufficient Right LE: Sufficient Left LE: Sufficient [...] content not included)... 08-14-2022 History of Present [facility] illness Narrative Episode Visit Count: 1 [...] can provide transportation) Home Type: [place] Transportation: [facility] Patient Goals: to continue t o provide for local transportation needs as desired Intake Information: Prescription present Relevant History Past Relevant Medical Condit ions: Cardiac;Hypertension (Refer to medical chart for further details; was diagnosed with Alzheimer's dementia with late onset in past few years while [facility] in 2016) Highest Level of Education: Bachelors (a t minimum) Preferred Language: Guatemalan Right or Left Handed: Right 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) Recreation / Current Exercise: walking Hobbies / Interests: reading newspaper, walking Home Environment Patient Lives With: Self/Alone Assistance Available: Part t litzy (has caregiver assist 7 days/week while 6 hours M-F and 4 hours Wednesday who complete various tasks and can provide transportation) Home Type: [place] Transportation: [facility] Activities of Daily Living: Independent Instrumental Activities of D aily Living: he has caregiver assist daily for 7 hours M-F and 4 hours on Sat/Sun that assist with cleaning, laundry, meal preparation, providing medication; outside work kyler en care of by complex; marianaissac everett manages finances, calendar, attends most of his appointments with him Driving History: 70 years State: [place] License/Permit #: [id number] E xpires: 11/09/25 Restrictions: none 5 Yr. [...] Driving: Right UE: Sufficient Left UE: Sufficient Pharmacy General Manager: Sufficient Right LE: Sufficient Left LE: Sufficient [...] SUSPECTED DECREASED AUDITORY ATTENTION SKILLS Visual Scanning/Attention: Bethany Making Part B (sec): 446 sec 50th [...] so , from the edge of the [place] According to The Physician's Guide to Assessing [...] Not Suggestive of Safe Driving Potential [place] Stretch Machine Operator Simulator: Simple Brake Reaction Time: Average Dist [...] drawing, Trailmaking B, Short Blessed Cognitive screen Self-Skilled Nursing Management: Skilled Intervention: Treasuree ming judgment in [...] rep ort indicates the ability of the local company flatbed truck driver to operate a motor vehicle on [...] PROVIDE INFORMATION TO PHYSICIAN REGARDING NOTIFYING THE [facility] SPECIAL CASE SECTIO N OF THE [...] imed/untimed) 120 minutes Evaluation - Moderate Complexity (45416) Self Care / Home Management (82473): 1:1 time: 60 minutes (4 units: 53-67 mins) Total time: 120 minutes Aleida Thomas OT/L, CDRS, CDI Certified Stretch Machine Operator Rehabilitation Speciali st documented in this encounter 08-05-2022 Note HNO ID: [id number] [facility] Author: Aracelis Aceves [place] Service: ? 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 ([facility]) 04/04/2021 Esophageal reflux Hemorrhage of rectum and anus History of prediabetes 08/05/2016 Hyperlipidemia Hypertrophy of prostate with urinary obs truction and other lower urinary tract symptoms (LUTS) 03/19/2006 HYPERURICEMIA 09/29/2006 Idiopathic peripheral neuropathy 0 Internal hemorrhoids without mention of complication Interstitial lung disease ([facility]) 7 Mixed hyperlipidemia Hyperlipidemia Occlusion and stenosis of carotid artery without mention of cerebral infarction 07/08/2010 OM (osteomyelitis) ([facility]) 04/03/2010 Osteomyelitis of fifth toe of right foot ([facility]) 01/23/2020 PAC (premature atrial contraction) 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 cardiac pacemaker 09/22/2019 OpenBook dual-chamber pacemaker system; indication: symptomatic bradycardia due to sinus node dysfunctio n; system will be MRI conditional after 6 weeks post implant Psoriasis and similar disorders arthritis PSORIATIC ARTHRITIS 09/29/2006 PVC (premature ventricular contraction) Sinus node dysfunction ([facility]) 09/22/2019 Unspecified essential hypertension Essential hypertension Unspecified hypothyroidism Urethral stricture 04/04/2012 Urinary retention 03/16/2013 Vasculitis ([facility]) 04/01/2017 Current Outpatient Medications Medication [...] eyes one day prior to eye injection. [place]-3 Fatty Acids (FISH OIL) 500 mg ca [...] content not included)... 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 ([facility]) 04/04/2021 Esophageal reflux Hemorrhage of rectum and anus History of prediabetes 08/05/2016 Hyperlipidemia Hypertrophy of prostate with urinary obstruction and other lower urinary tract symptoms (LUTS) 03/19/2006 HYPERURICEMIA 09/29/2006 Idiopathic peripheral neuropathy 0 Internal hemorrhoids without mention of complication Interstitial lung disease ([facility]) 7 Mixed hyperlipidemia Hyperlipidemia 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 07/08/2010 OM (osteomyelitis) ([facility]) 04/03/2010 Osteomyelitis of fifth toe of right foot ([facility]) 01/23/2020 PAC (premature atrial contraction) 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 cardiac pacemaker 09/22/2019 OpenBook dual-chamb er pacemaker system; indication: symptomatic bradycardia due to sinus node dysfunction; system will be MRI conditional after 6 weeks post implant Psoriasis and similar disorders arthritis PSORIATIC ARTHRITIS 09/29/2006 PVC (premature ventricular contraction) Sinus node dysfunction ([facility]) 09/22/2019 Unspecified essential hypertension Essential hypertension Unspecified hypothyroidism Urethral stricture 04/04/2012 Urinary retention 03/16/2013 Vasculitis ([facility]) 04/01/2017 Current Outpatient Medications Medication [...] eyes one day prior to eye injection. [place]-3 Fatty Acids (FISH OIL) 500 mg ca [...] ANES HRT PERICARDIAL SAC& GRT VESLS W/O EXPERIMENTAL TECHNICIAN OXT 1996 triple bypass ARTHRP KNE CONDYLE&PLATU MEDIAL&LAT COMP ARTMENTS Right 05/02/2012 Knee replacement, total Right [facility]. Gentile [facility] BUNIONECTOMY, [place]-TYPE Right 2009 Right foot CARDIAC CATH 01/28/2011 normal LV systolic fxn; norm al LM, occluded LAD; LCX 50% ostial, mid 80%; left PDA 50% prox; RCA small nondominant with 70% ostial stenosis; SVG-PDA occluded; VIZCARRA Y graft to LAD and diagonal branch patent; [facility] [address] [facility] CAROTID SURGERY Right 05/04/2014 RIGHT CAROTID CATARACT EXTRACTION HX Bilateral 2015 COLONOSCOPY FLX DX W/COLLJ SPEC WHEN PFR 08/10/2014 CORONARY ARTERY BYPASS GRAFT 06/06/1997 CABG 2 vessel: VIZCARRA Y graft to LAD and diagonal branch; [facility], Dr. Valenzuela ECHOCARDIOGRAM 02/18/2018 normal LV [...] of little toe, rig ht, subsequent encounter ([facility]) PLAN: Callus reduced to noted [...] migh t be different from the original. [facility] Notes Sorry about the delay in [...] migh t be different from the original. [facility] Notes Schedule appointment with or Niyah rhoades rding driving concerns. documented in this encounter 06-24-2022 Note HNO ID: [id number] [facility] Author: Aracelis Aceves [place] Service: ? Author Type: Physician Type: Progress [...] (H) 4.3 - 5.6 % Final Comment: [place] Diabetes Association guidelines indicate that patients with [...] CAD (coronary artery disease) two-vessel CABG 1996 ([facility]); PCI/stent LCX 2010 - Chronic kidney [...] o f complication - Interstitial lung disease ([facility]) 017 - Mixed hyperlipidemia Hyperlipidemia - 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 07/08/2010 - OM (osteomyelitis) ([facility]) 04/03/2010 - Osteomyelitis of fifth toe of right fo ot ([facility]) 01/23/2020 - PAC (premature atrial contraction) - 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[facility] 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 - Presence of cardiac pacemaker 09/22/20 19 [employer] Windows dual-chamber pacemaker system; indication: symptomatic bradycardia due to sinus node dysfunctio n; system will be MRI conditional after 6 weeks post implant - Psoriasis and similar disorders arthritis - PSORIATIC ARTHRITIS 09/29/2006 - PVC (premature ventricular contraction ) - Sinus node dysfunction ([facility]) 09/22/2019 - Unspecified essential hypertension Essential hypertension - Unspecified hypothyroidism - Urethral stricture 04/04/2012 - Urinary retention 03/16/2013 - Vasculitis ([facility]) 04/01/2017 Current Outpatient Medications Medication [...] one day prior to eye injection. - [place]-3 Fatty Acids (FISH OIL) 500 mg cap [...] content not included)... 06-24-2022 Note HNO ID: [id number] [facility] Author: Luh Garcia LPN [place] Service: ? Author Type: LICENSED NURSE Type: [...] Aracelis Aceves - 2 1:43 PM EDT [facility] Continue with hammertoe pad Continue with lotion to feet F/u in 5-6 weeks for callus documented in this encounter 06-24-2022 History of Present [facility] illness Narrative FOLLOW UP PODIATRIC OFFICE [...] (H) 4.3 - 5.6 % Final Comment: [place] Diabetes Association guidelines indicate that patients with [...] CAD (coronary artery disease) two-vessel CABG 1996 ([facility]); PCI/stent LCX 2010 Chronic kidney disease, stage 3 (modera te) 08/11/2016 CKD (chronic kidney disease) stage 3, G FR 30-59 ml/min ([facility]) 08/11/2016 Closed fracture of metatarsal bone(s) Cognitive disorder 08/12/2015 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 ([facility]) 04/04/2021 Esophageal reflux Hemorrhage of rectum and anus History of prediabetes 08/05/2016 Hyperlipidemia Hypertrophy of prostate wit h urinary obstruction and other lower urinary tract symptoms (LUTS) 03/19/2006 HYPERURICEMIA 09/29/2006 Idiopathic peripheral neuropathy 03/28/20 10 Internal hemorrhoids without mention of complication Interstitial lung disease ([facility]) 05/18/20 17 Mixed hyperlipidemia Hyperlipidemia Occlusion and stenosis of c arotid artery without mention of cerebral infarction 07/08/2010 OM (osteomyelitis) ([facility]) 04/03/2010 Osteomyelitis of fifth toe of right anthony t ([facility]) 01/23/2020 PAC (premature atrial contraction) 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 cardiac pacemaker 9 OpenBook dual-chamb er pacemaker system; indication: symptomatic bradycardia due to sinus node dysfunction; system will be MRI conditional after 6 weeks post implant Psoriasis and similar disorders arthritis PSORIATIC ARTHRITIS 09/29/2006 PVC (premature ventricular contraction) Sinus node dysfunction ([facility]) 09/22/2019 Unspecified essential hypertension Essential hypertension Unspecified hypothyroidism Urethral stricture 04/04/2012 Urinary retention 03/16/2013 Vasculitis ([facility]) 04/01/2017 Current Outpatient Medications Medication [...] eyes one day prior to eye injection. [place]-3 Fatty Acids (FISH OIL) 500 mg c [...] ANES HRT PERICARDIAL SAC& GRT VESLS W/O EXPERIMENTAL TECHNICIAN OXT 1996 triple bypass ARTHRP KNE CONDYLE&PLATU MEDIAL&LAT COM PARTMENTS Right 05/02/2012 Knee replacement, total Right [facility]. Gentile [facility] BUNIONECTOMY, [place]-TYPE Right 2009 Right foot CARDIAC CATH 01/28/2011 normal LV systolic fxn; norm al LM, occluded LAD; LCX 50% ostial, mid 80%; left PDA 50% prox; RCA small nondominant with 70% ostial stenosis; SVG-PDA occluded; VIZCARRA Y graft to LAD and diagonal branch patent; CAROTID SURGERY Left 1997 CAROTID[place]-- left CAROTID SURGERY Right 05/04/2014 RIGHT CAROTID CATARACT EXTRACTION HX Bilateral 2016 COLONOSCOPY FLX DX W/COLLJ SPEC WHEN PF RMD 08/10/2014 CORONARY ARTERY BYPASS GRAFT 06/06/1997 CABG 2 vessel: VIZCARRA Y graft to LAD and diagonal branch; [facility], Dr. Valenzuela ECHOCARDIOGRAM 02/18/2018 normal LV [...] encounter diagno sis) Pad (peripheral artery disease) ([facility]) Hammer toes of both feet PLAN: Callus [...] in this encounter 06-04-2022 Note HNO ID: [id number] [facility] Author: Jason Snider MD [place] Service: ? Author Type: Physician Type: Progress [...] significant. 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 He still ken ve short distances and [...] Interstitial Lung Disease (Hcc) Bradycardia Atherosclerosis of [place] Coronary Arter y of [place] Heart Without Angina Pectoris Gout Presence of [...] one day prior to eye injection. - [place]-3 Fatty Acids (FISH OIL) 500 mg cap [...] content not included)... 06-03-2022 History of Present [facility] illness Narrative This note was created using Iumriter. Subjective Patient presents with: Follow Up Navid Cortes is a 86 year old male was here with his daughter for an earlier follow up. See My Chart message. Concerns were fatigue, digestive problems including fecal soiling. History is limited by ming santiago as patient indicated concerns were not significant. 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 He still drove short distances and still [...] Interstitial Lung Disease (Hcc) Bradycardia Atherosclerosis of [place] Co ronary Artery of [place] Heart Without Angina Pectoris Gout Presence of [...] eyes one day prior to eye injection. [place]-3 Fatty Acids (FISH OIL) 500 mg c [...] migh t be different from the original. [facility] Notes Patient's daughter calls and sets [...] in this encounter 05-13-2022 Note HNO ID: [id number] [facility] Author: Aracelis Aceves [place] Service: ? Author Type: Physician Type: Progress Notes Filed: 05/18/2022 7:52 AM Note Text: FOLLOW UP PODIATRIC OFFICE VISIT Chief Complaint: This 86 year old who pr esents for follow up:callus of both feet. Patient presents to clinic for follow-up callus. He is using hammertoe pad and wider new balance shoes . He has no issues Eeo Officer states he did bump his toenail and it is black. PAIN EVALUATION No data found in the last 1 encounters. Hemoglobin A1C Date Value Ref Range Status 08/12/2017 5.8 (H) 4.3 - 5.6 % Final Comment: [place] [employer] Association guidelines indicate that patients with [...] CAD (coronary artery disease) two-vessel CABG 1996 ([facility]); PCI/stent LCX 2010 - Chronic kidney [...] o f complication - Interstitial lung disease ([facility]) 017 - Mixed hyperlipidemia Hyperlipidemia - 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 07/08/2010 - OM (osteomyelitis) ([facility]) 04/03/2010 - Osteomyelitis of fifth toe of right fo ot ([facility]) 01/23/2020 - PAC (premature atrial contraction) - 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[facility] 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 - Presence of cardiac pacemaker 09/22/20 19 OpenBook dual-chamber pacemaker system; indication: symptomatic bradycardia due to sinus node dysfunctio n; system will be MRI conditional after 6 weeks post implant - Psoriasis and similar disorders arthritis - PSORIATIC ARTHRITIS 09/29/2006 - PVC (premature ventricular contraction ) - Sinus node dysfunction ([facility]) 09/22/2019 - Unspecified essential hypertension Essential hypertension - Unspecified hypothyroidism - Urethral stricture 04/04/2012 - Urinary retention 03/16/2013 - Vasculitis ([facility]) 04/01/2017 Current Outpatient Medications Medication [...] one day prior to eye injection. - [place]-3 Fatty Acids (FISH OIL) 500 mg cap [...] content not included)... 05-13-2022 Note HNO ID: [id number] [facility] Author: Madeleine Bojorquez [place] Service: ? Author Type: ? Type: Progress [...] Instructions Aracelis Aceves - 2:42 PM EDT [facility] Continue with lotion to feet and hammert oe pads Follow-up in 6 weeks documented in this encounter 05-13-2022 History of Present [facility] illness Narrative FOLLOW UP PODIATRIC OFFICE VISIT Chief Complaint: This 86 yea r old who presents for follow up:callus of both feet. Patient presents to clinic f or follow-up callus. He is using hammertoe pad and wider new balance shoes . He has no issues Eeo Officer states he did bump his toenail and it is black. PAIN EVALUATION No data found in the last 1 encounters. 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 ([facility]) 04/04/2021 Esophageal reflux Hemorrhage of rectum and anus History of prediabetes 08/05/2016 Hyperlipidemia Hypertrophy of prostate wit h urinary obstruction and other lower urinary tract symptoms (LUTS) 03/19/2006 HYPERURICEMIA 09/29/2006 Idiopathic peripheral neuropathy 03/28/20 10 Internal hemorrhoids without mention of complication Interstitial lung disease ([facility]) 05/18/20 17 Mixed hyperlipidemia Hyperlipidemia Occlusion and stenosis of c arotid artery without mention of cerebral infarction 07/08/2010 OM (osteomyelitis) ([facility]) 04/03/2010 Osteomyelitis of fifth toe of right anthony t ([facility]) 01/23/2020 PAC (premature atrial contraction) 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 cardiac pacemaker 9 OpenBook dual-chamb er pacemaker system; indication: symptomatic bradycardia [...] eyes one day prior to eye injection. [place]-3 Fatty Acids (FISH OIL) 500 mg c [...] ANES HRT PERICARDIAL SAC& GRT VESLS W/O EXPERIMENTAL TECHNICIAN OXT 1996 triple bypass ARTHRP KNE CONDYLE&PLATU MEDIAL&LAT COM PARTMENTS Right 05/02/2012 Knee replacement, total Right [facility]. Gentile [facility] BUNIONECTOMY, [place]-TYPE Right 2009 Right foot CARDIAC CATH 01/28/2011 normal LV systolic fxn; norm al LM, occluded LAD; LCX 50% ostial, mid 80%; left PDA 50% prox; RCA small nondominant with 70% ostial stenosis; SVG-PDA occluded; VIZCARRA Y graft to LAD and diagonal branch patent; CAROTID SURGERY Left 1997 CAROTID[place]-- left CAROTID SURGERY Right 05/04/2014 RIGHT CAROTID CATARACT EXTRACTION HX Bilateral 2016 COLONOSCOPY FLX DX W/COLLJ SPEC WHEN PF RMD 08/10/2014 CORONARY ARTERY BYPASS GRAFT 06/06/1997 CABG 2 vessel: VIZCARRA Y graft to LAD and diagonal branch; [facility], Dr. Valenzuela ECHOCARDIOGRAM 02/18/2018 normal LV [...] r diagnosis) (I73.9) PAD (peripheral artery disease) ([facility]) (M20.41, M20.42) Hammer toes of both fee t (B35.1) Onychomycosis (S98.131D) Amputation of little toe, rig ht, subsequent encounter ([facility]) PLAN: 1. Callus to b/l [...] in this encounter 04-01-2022 Note HNO ID: [id number] [facility] Author: Aracelis Aceves Giltner Service: ? Author Type: Physician Type: Progress [...] (H) 4.3 - 5.6 % Final Comment: [place] [employer] guidelines indicate that patients with [...] CAD (coronary artery disease) two-vessel CABG 1996 ([facility]); PCI/stent LCX 2010 - Chronic kidney [...] o f complication - Interstitial lung disease ([facility]) 017 - Mixed hyperlipidemia Hyperlipidemia - 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 07/08/2010 - OM (osteomyelitis) ([facility]) 04/03/2010 - Osteomyelitis of fifth toe of right fo ot ([facility]) 01/23/2020 - PAC (premature atrial contraction) - 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[facility] 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 - Presence of cardiac pacemaker 09/22/20 19 [employer] dual-chamber pacemaker system; indication: symptomatic bradycardia due to sinus node dysfunctio n; system will be MRI conditional after 6 weeks post implant - Psoriasis and similar disorders arthritis - PSORIATIC ARTHRITIS 09/29/2006 - PVC (premature ventricular contraction ) - Sinus node dysfunction ([facility]) 09/22/2019 - Unspecified essential hypertension Essential hypertension - Unspecified hypothyroidism - Urethral stricture 04/04/2012 - Urinary retention 03/16/2013 - Vasculitis ([facility]) 04/01/2017 Current Outpatient Medications Medication [...] one day prior to eye injection. - [place]-3 Fatty Acids (FISH OIL) 500 mg cap [...] not included )... 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 ([facility]) 04/04/2021 Esophageal reflux Hemorrhage of rectum and anus History of prediabetes 08/05/2016 Hyperlipidemia Hypertrophy of prostate wit h urinary obstruction and other lower urinary tract symptoms (LUTS) 03/19/2006 HYPERURICEMIA 09/29/2006 Idiopathic peripheral neuropathy 03/28/20 10 Internal hemorrhoids without mention of complication Interstitial lung disease ([facility]) 05/18/20 17 Mixed hyperlipidemia Hyperlipidemia Occlusion and stenosis of c arotid artery without mention of cerebral infarction 07/08/2010 OM (osteomyelitis) ([facility]) 04/03/2010 Osteomyelitis of fifth toe of right anthony t ([facility]) 01/23/2020 PAC (premature atrial contraction) 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 cardiac pacemaker 9 OpenBook dual-chamb er pacemaker system; indication: symptomatic bradycardia due to sinus node dysfunction; system will be MRI conditional after 6 weeks post implant Psoriasis and similar disorders arthritis PSORIATIC ARTHRITIS 09/29/2006 PVC (premature ventricular contraction) Sinus node dysfunction ([facility]) 09/22/2019 Unspecified essential hypertension Essential hypertension Unspecified hypothyroidism Urethral stricture 04/04/2012 Urinary retention 03/16/2013 Vasculitis ([facility]) 04/01/2017 Current Outpatient Medications Medication [...] eyes one day prior to eye injection. [place]-3 Fatty Acids (FISH OIL) 500 mg c [...] ANES HRT PERICARDIAL SAC& GRT VESLS W/O EXPERIMENTAL TECHNICIAN OXT 1996 triple bypass ARTHRP KNE CONDYLE&PLATU MEDIAL&LAT COM PARTMENTS Right 05/02/2012 Knee replacement, total Right [facility]. Gentile [facility] BUNIONECTOMY, [place]-TYPE Right 2009 Right foot CARDIAC [...] Y graft to LAD and diagonal branch; [facility], Dr. Valenzuela ECHOCARDIOGRAM 02/18/2018 normal LV [...] in this encounter 03-31-2022 Note HNO ID: [id number] [facility] Author: Kaylah Delgado RN Giltner Service: ? Author Type: ? Type: Progress [...] note is d ifferent from the original. [facility] Notes Daughter called and states p [...] in this encounter 02-18-2022 Note HNO ID: [id number] [facility] Author: Aracelis Aceves Giltner Service: ? 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 ([facility]) 04/04/2021 - Esophageal reflux - Hemorrhage of rectum and anus - History of prediabetes 08/05/2016 - Hyperlipidemia - Hypertrophy of prostate with urinary o bstruction and other lower urinary tract symptoms (LUTS) 03/19/2006 - HYPERURICEMIA 09/29/2006 - Idiopathic peripheral neuropathy 010 - Internal hemorrhoids without mention o f complication - Interstitial lung disease ([facility]) 017 - Mixed hyperlipidemia Hyperlipidemia - 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 07/08/2010 - OM (osteomyelitis) ([facility]) 04/03/2010 - Osteomyelitis of fifth toe of right fo ot ([facility]) 01/23/2020 - PAC (premature atrial contraction) - 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[facility] 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 - Presence of cardiac pacemaker 09/22/20 19 OpenBook dual-chamber pacemaker system; indication: symptomatic bradycardia due to sinus node dysfunctio n; system will be MRI conditional after 6 weeks post implant - Psoriasis and similar disorders arthritis - PSORIATIC ARTHRITIS 09/29/2006 - PVC (premature ventricular contraction ) - Sinus node dysfunction ([facility]) 09/22/2019 - Unspecified essential hypertension Essential hypertension - Unspecified hypothyroidism - Urethral stricture 04/04/2012 - Urinary retention 03/16/2013 - Vasculitis ([facility]) 04/01/2017 Current Outpatient Medications Medication [...] one day prior to eye injection. - [place]-3 Fatty Acids (FISH OIL) 500 mg cap [...] content not included)... 02-18-2022 History of Present [facility] illness Narrative Follow up podiatric office [...] (H) 4.3 - 5.6 % Final Comment: [place] [employer] guidelines indicate that patients with [...] CAD (coronary artery disease) two-vessel CABG 1996 ([facility]); PCI/stent LCX 2010 Chronic kidney disease, stage 3 (modera te) 08/11/2016 CKD (chronic kidney disease) stage 3, G FR 30-59 ml/min ([facility]) 08/11/2016 Closed fracture of metatarsal bone(s) Cognitive disorder 08/12/2015 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 ([facility]) 04/04/2021 Esophageal reflux Hemorrhage of rectum and anus History of prediabetes 08/05/2016 Hyperlipidemia Hypertrophy of prostate wit h urinary obstruction and other lower urinary tract symptoms (LUTS) 03/19/2006 HYPERURICEMIA 09/29/2006 Idiopathic peripheral neuropathy 03/28/20 10 Internal hemorrhoids without mention of complication Interstitial lung disease ([facility]) 05/18/20 17 Mixed hyperlipidemia Hyperlipidemia Occlusion and stenosis of c arotid artery without mention of cerebral infarction 07/08/2010 OM (osteomyelitis) ([facility]) 04/03/2010 Osteomyelitis of fifth toe of right anthony t ([facility]) 01/23/2020 PAC (premature atrial contraction) 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 cardiac pacemaker 9 [employer]Book dual-chamb er pacemaker system; indication: symptomatic bradycardia due to sinus node dysfunction; system will be MRI conditional after 6 weeks post implant Psoriasis and similar disorders arthritis PSORIATIC ARTHRITIS 09/29/2006 PVC (premature ventricular contraction) Sinus node dysfunction ([facility]) 09/22/2019 Unspecified essential hypertension Essential [...] eyes one day prior to eye injection. [place]-3 Fatty Acids (FISH OIL) 500 mg c [...] ANES HRT PERICARDIAL SAC& GRT VESLS W/O EXPERIMENTAL TECHNICIAN OXT 1996 triple bypass ARTHRP KNE CONDYLE&PLATU MEDIAL&LAT COM PARTMENTS Right 05/02/2012 Knee replacement, total Right [facility] Gentile [facility] BUNIONECTOMY, [place]-TYPE Right 2009 Right foot CARDIAC CATH 01/28/2011 normal LV systolic fxn; norm al LM, occluded LAD; LCX 50% ostial, mid 80%; left PDA 50% prox; RCA small nondominant with 70% ostial stenosis; SVG-PDA occluded; VIZCARRA Y graft to LAD and diagonal branch patent; [facility] [address] [facility] SURGERY Right 05/04/2014 RIGHT CAROTID CATARACT EXTRACTION HX Bilateral 2015 COLONOSCOPY FLX DX W/COLLJ SPEC WHEN PF RMD 08/10/2014 CORONARY ARTERY BYPASS GRAFT 06/06/1997 CABG 2 vessel: VIZCARRA Y graft to LAD and diagonal branch; [facility], Dr. Valenzuela ECHOCARDIOGRAM 02/18/2018 normal LV [...] ter diagnosis) Hyperkeratosis Pad (peripheral artery disease) ([facility]) PLAN: Callus lightly debrided toda y to [...] in this encounter 02-17-2022 Note HNO ID: [id number] [facility] Author: Aleida Moser MA Giltner Service: ? Author Type: Application Integration Architect Type: Progress Notes Filed: 02/18/2022 12:24 PM Note Text: Patient presents with: Right Foot - Established Patient, hammer toes 02-17-2022 Instructions Aracelis Aceves - 2:51 PM EDT [facility] Continue with wide new balance tennis sh oes Continue with lotion to feet daily Wear hammertoe pad beneath the left 2nd toe Call if any issues arise Follow-up in 6 weeks documented in this encounter 02-17-2022 Miscellaneous Formatting of this note migh t be different from the original. [facility] Notes rec'd fax from [facility] requested MR. Brown has been sent to [facility] MR dept documented in this encounter 02-25-2022 Note HNO ID: [id number] [facility] Author: Jason Snider MD Giltner Service: ? Author Type: Physician Type: Progress Notes Filed: 01/18/2022 2:21 PM Note Text: This note was created using Iumriter. Subjective Navid Cortes is a 86 year old male her e with his daughter. He slipped on ice recently with no major injury. 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 Daughter reported he still passed his vision exam for driving and patient still felt safe driving to familiar places. Home health aid hours have increased, and he had some home care 6 days per week. This improved medication adherence and nutritional quality. He still went for m eals at a [employer] restaurant when home health was not available, [...] Interstitial Lung Disease (Hcc) Bradycardia Atherosclerosis of [place] Coronary Arter y of [place] Heart Without Angina Pectoris Gout Presence of [...] one day prior to eye injection. - [place]-3 Fatty Acids (FISH OIL) 500 mg cap [...] as of this encounter (statuses as of 02/17/2022)[facility] 02-03-2020 History of Past illness Narrative [...] as of this encounter (statuses as of 02/18/2022)[facility] 02-03-2020 History of Past illness Narrative [...] as of this encounter (statuses as of 03/27/2022)[facility] 02-03-2020 History of Past illness Narrative [...] as of this encounter (statuses as of 04/01/2022)[facility] 02-03-2020 History of Past illness Narrative [...] as of this encounter (statuses as of 04/08/2022)[facility] 02-03-2020 History of Past illness Narrative [...] as of this encounter (statuses as of 05/15/2022)[facility] 02-03-2020 History of Past illness Narrative [...] as of this encounter (statuses as of 05/18/2022)[facility] 02-03-2020 History of Past illness Narrative [...] as of this encounter (statuses as of 06/04/2022)[facility] 02-03-2020 History of Past illness Narrative [...] as of this encounter (statuses as of 06/30/2022)[facility] 02-03-2020 History of Past illness Narrative [...] or unspecified 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/10/2010 manifestations, not stated as uncontrolled(250.60) [...] as of this encounter (statuses as of 07/15/2022)[facility] 02-03-2020 History of Past illness Narrative [...] as of this encounter (statuses as of 08/06/2022)[facility] 02-03-2020 History of Past illness Narrative [...] as of this encounter (statuses as of 08/16/2022)[facility] 02-03-2020 History of Past illness Narrative [...] as of this encounter (statuses as of 08/27/2022)[facility] 02-03-2020 History of Past illness Narrative [...] as of this encounter (statuses as of 08/27/2022)[facility] 02-03-2020 History of Past illness Narrative [...] as of this encounter (statuses as of 09/17/2022)[facility] 02-03-2020 History of Past illness Narrative [...] as of this encounter (statuses as of 09/18/2022)[facility] 02-03-2020 History of Past illness Narrative [...] as of this encounter (statuses as of 09/23/2022)[facility] 02-03-2020 History of Past illness Narrative [...] as of this encounter (statuses as of 09/25/2022)[facility] 02-03-2020 History of Past illness Narrative [...] as of this encounter (statuses as of 11/11/2022)[facility] 02-03-2020 History of Past illness Narrative [...] as of this encounter (statuses as of 11/11/2022)[facility] 02-03-2020 History of Past illness Narrative [...] as of this encounter (statuses as of 01/07/2023)[facility] Evaluation note Diagnosis Hammer toes of both feet- Primary Hyperkeratosis Acquired keratoderma PAD (peripheral artery disease) (HCC) Peripheral vascular disease, unspecified [facility] Diagnosis Mild cognitive disorder Unspecified persistent mental disorders due to conditions classified elsewhere BPH with obstruction/lower urinary tract symptoms Hypertrophy of prostate with urinary obs truction and other lower urinary tract symptoms (LUTS) Hyperuricemia Other abnormal blood chemistry [facility] Diagnosis Hyperkeratosis- Primary Acquired keratoderma PAD (peripheral artery disease) (HCC) Peripheral vascular disease, unspecified Hammer toes of both feet [facility] Diagnosis General weakness- Primary Other malaise and fatigue Diarrhea, unspecified type [facility] Diagnosis Hyperkeratosis- Primary Acquired keratoderma PAD (peripheral artery disease) (HCC) Peripheral vascular disease, unspecified Hammer toes of both feet Onychomycosis Dermatophytosis of nail Amputation of little toe, right, subsequ ent encounter ([facility]) documented in [facility] Diagnosis Asthenia- Primary Other malaise and fatigue Essential hypertension Unspecified essential hypertension Dizziness Dizziness and giddiness 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) Alzheimer's disease Mild protein-calorie malnutrition (HCC) Malnutrition of mild degree Stage 3a chronic kidney disease ([facility]) Vasomotor rhinitis Allergic rhinitis, cause unspecified documented [facility] ClinicEvaluation [facility] Diagnosis Hyperkeratosis- Primary Acquired keratoderma PAD (peripheral artery disease) (HCC) Peripheral vascular disease, unspecified Hammer toes of both feet documented in [facility] encounterC[facility] ClinicEvaluation [facility] Diagnosis Hyperkeratosis- Primary Acquired keratoderma Hammer toes of both feet Onychomycosis Dermatophytosis of nail Amputation of little toe, right, subsequ ent encounter ([facility]) documented in this encounterCleveland ClinicEvaluation [...] of little toe, right, subsequ ent encounter ([facility]) PAD (peripheral artery disease) ([facility]) Peripheral vascular disease, unspecified Hammer toes of both feet documented in [facility] encounterC[facility] ClinicEvaluation note Diagnosis Injury to fingernail of right hand, init ial encounter- Primary [facility] Hyperkeratosis- Primary Acquired keratoderma Onychomycosis Dermatophytosis of nail Amputation of little toe, right, subsequ ent encounter (HCC) PAD (peripheral artery disease) ([facility]) Peripheral vascular disease, unspecified Hammer toes of both feet [facility] Purpose Family History No Family History Records FoundNo Family History Records FoundNo Family History Records FoundNo Family History Records Found Advance Directives No Advanced Directives Records Found Documents on File Type Date Recorded 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 Team Members: Treatment Team: Attending Provider: Holland Ordonez MY CONDITI ON AT DISCHARGE: Good REASON I WAS IN THE (more content not included)... Additional Source Comments (unrecognized section and cont ent) No Status Records FoundNo Preg cuong Status Records FoundNo Status Records FoundNo Status Records Found INFORMATION SOURCE (unrecognized section and content) DATE CREATED AUTHOR AUTHOR'S ORGANIZ ATION 09/25/2019 [facility] DATE CREATED AUTHOR AUTHOR'S ORGANIZATIO N 09/29/2019 [facility] DATE CREATED AUTHOR AUTHOR'S ORGANIZATIO N 12/18/2022 [facility] DATE CREATED AUTHOR AUTHOR'S ORGANIZATIO N 01/08/2023 [facility] [employer] wilcox Source Comments (unrecognized section an d [...] prosecute any alcohol or drug abuse patient. [facility] the event this information is protected by t cayla Federal Confidentiality of Alcohol and Drug Abuse Patient Records regulations: This information has been disclosed to you from records protected by Federal confid entiality rules ( The Federal rules restrict any use of th e information to criminally investigate or prosecute any alcohol or drug abuse maribel ent. [facility] HospitalIn the event this information is protected by the Federal Confidentiality of Alcohol and Drug Abuse Patient Records regulations: This inform ation has been disclosed to you from records protected by Federal confidentiality rul es ( The Federal rules restrict any use of the in formation to criminally investigate or prosecute any alcohol or drug abuse maribel ent. [facility] HospitalIn the event this information is protected by the Federal Confidentiality of Alcohol and Drug Abuse Patient Records regulations: This inform ation has been disclosed to you from records protected by Federal confidentiality rul es ( The Federal rules restrict any use of the in formation to criminally investigate or prosecute any alcohol or drug abuse maribel ent. [facility]In the event this information is protected by the Federal Confidentiality of Alcohol and Drug Abuse Patient Records regulations: This inform ation has been disclosed to you from records protected by Federal confidentiality rul es ( The Federal rules restrict any use of the in formation to criminally investigate or prosecute any alcohol or drug abuse maribel ent. [facility] HospitalIn the event this information is protected by the Federal Confidentiality of Alcohol and Drug Abuse Patient Records regulations: This inform ation has been disclosed to you from records protected by Federal confidentiality rul es ( The Federal rules restrict any use of the in formation to criminally investigate or prosecute any alcohol or drug abuse maribel ent. [facility]In the event this information is protected by the Federal Confidentiality of Alcohol and Drug Abuse Patient Records regulations: This inform ation has been disclosed to you from records protected by Federal confidentiality rul es ( The Federal rules restrict any use of the in formation to criminally investigate or prosecute any alcohol or drug abuse maribel ent. [facility]In the event this information is protected by the Federal Confidentiality of Alcohol and Drug Abuse Patient Records regulations: This inform ation has been disclosed to you from records protected by Federal confidentiality rul es ( The Federal rules restrict any use of the in formation to criminally investigate or prosecute any alcohol or drug abuse maribel ent. [facility] HospitalIn the event this information is protected by the Federal Confidentiality of Alcohol and Drug Abuse Patient Records regulations: This inform ation has been disclosed to you from records protected by Federal confidentiality rul es ( The Federal rules restrict any use of the in formation to criminally investigate or prosecute any alcohol or drug abuse maribel ent. [facility] the event this information is protected by the Federal Confidentiality of Alcohol and Drug Abuse Patient Records regulations: This inform ation has been disclosed to you from records protected by Federal confidentiality rul es ( The Federal rules restrict any use of the in formation to criminally investigate or prosecute any alcohol or drug abuse maribel ent. [facility] the event this information is protected by the Federal Confidentiality of Alcohol and Drug Abuse Patient Records regulations: This inform ation has been disclosed to you from records protected by Federal confidentiality rul es ( The Federal rules restrict any use of the in formation to criminally investigate or prosecute any alcohol or drug abuse maribel ent. [facility] the event this information is protected by the Federal Confidentiality of Alcohol and Drug Abuse Patient Records regulations: This inform ation has been disclosed to you from records protected by Federal confidentiality rul es ( The Federal rules restrict any use of the in formation to criminally investigate or prosecute any alcohol or drug abuse maribel ent. [facility] the event this information is protected by the Federal Confidentiality of Alcohol and Drug Abuse Patient Records regulations: This inform ation has been disclosed to you from records protected by Federal confidentiality rul es ( The Federal rules restrict any use of the in formation to criminally investigate or prosecute any alcohol or drug abuse maribel ent. [facility] the event this information is protected by the Federal Confidentiality of Alcohol and Drug Abuse Patient Records regulations: This inform ation has been disclosed to you from records protected by Federal confidentiality rul es ( The Federal rules restrict any use of the in formation to criminally investigate or prosecute any alcohol or drug abuse maribel ent. [facility] the event this information is protected by the Federal Confidentiality of Alcohol and Drug Abuse Patient Records regulations: This inform ation has been disclosed to you from records protected by Federal confidentiality rul es ( The Federal rules restrict any use of the in formation to criminally investigate or prosecute any alcohol or drug abuse maribel ent. [facility] the event this information is protected by the Federal Confidentiality of Alcohol and Drug Abuse Patient Records regulations: This inform ation has been disclosed to you from records protected by Federal confidentiality rul es ( The Federal rules restrict any use of the in formation to criminally investigate or prosecute any alcohol or drug abuse maribel ent. [facility] the event this information is protected by the Federal Confidentiality of Alcohol and Drug Abuse Patient Records regulations: This inform ation has been disclosed to you from records protected by Federal confidentiality rul es ( The Federal rules restrict any use of the in formation to criminally investigate or prosecute any alcohol or drug abuse maribel ent. [facility] the event this information is protected by the Federal Confidentiality of Alcohol and Drug Abuse Patient Records regulations: This inform ation has been disclosed to you from records protected by Federal confidentiality rul es ( The Federal rules restrict any use of the in formation to criminally investigate or prosecute any alcohol or drug abuse maribel ent. [facility] the event this information is protected by the Federal Confidentiality of Alcohol and Drug Abuse Patient Records regulations: This inform ation has been disclosed to you from records protected by Federal confidentiality rul es ( The Federal rules restrict any use of the in formation to criminally investigate or prosecute any alcohol or drug abuse maribel ent. [facility]In the event this information is protected by the Federal Confidentiality of Alcohol and Drug Abuse Patient Records regulations: This inform ation has been disclosed to you from records protected by Federal confidentiality rul es ( The Federal rules restrict any use of the in formation to criminally investigate or prosecute any alcohol or drug abuse maribel ent. [facility] the event this information is protected by the Federal Confidentiality of Alcohol and Drug Abuse Patient Records regulations: This inform ation has been disclosed to you from records protected by Federal confidentiality rul es ( The Federal rules restrict any use of the in formation to criminally investigate or prosecute any alcohol or drug abuse maribel ent. [facility]In the event this information is protected by the Federal Confidentiality of Alcohol and Drug Abuse Patient Records regulations: This inform ation has been disclosed to you from records protected by Federal confidentiality rul es ( The Federal rules restrict any use of the in formation to criminally investigate or prosecute any alcohol or drug abuse maribel ent. 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 OT/L [address] [place] [address] Referral ID Status Reason Start Date Expiration Date Visits V isits Requested Authorized [id number] Authorized 11/22/2021 11/21/2022 99 99 Reason Comments Established Patient Callous Follow Up Reason Comments 4 month f/u Reason Onset Date Comments Refill Request 09/22/2022 Reason Comments Results Reason Comments Established Patient Follow Up Pain Reason Comments Finger Injury left hand middle fingernail ripped x this afternoon Care Teams (unrecognized section and con tent) Chummer Relationship Specialty Start Date End Date Jason Snider MD PCP - General Internal Medicine 08/10/16 [address] [facility] [place] [address] Augusto Tran Specialty Measurement Operator Cardiology 08/25/19 [address] [place] [address] Kenan Mari Specialty Measurement Operator Pulmonary Disease 08/25/19 [address] [place] [address] Lorne Andrew Jr., Specialty Measurement Operator Ophthalmology 08/25/19 DO [address] [place] [address] Aracelis Aceves Specialty Measurement Operator Podiatry 08/25/19 [address] [facility] [address] Claude He Specialty Measurement Operator Cerebrovascular 08/25/19 Dariusz [address] [place] [address] Chummer Relationship Specialty Start Date End Date Jason Snider MD PCP - General Internal Medicine 08/10/16 [address] [facility] [place] [address] Augusto Tran Specialty Measurement Operator Cardiology 08/25/19 [address] [place] [address] Kenan Mari Specialty Measurement Operator Pulmonary Disease 08/25/19 [address] [place] [address] Lorne Andrew Jr., Specialty Measurement Operator Ophthalmology 08/25/19 DO [address] [place] [address] Aracelis Aceves Specialty Measurement Operator Podiatry 08/25/19 [address] [place] [address] Claude He Specialty Measurement Operator Cerebrovascular 08/25/19 Dariusz [address] [place] [address] Chummer Relationship Specialty Start Date End Date Jason Snider MD PCP - General Internal Medicine 08/10/16 [address] [facility] [place] [address] Augusto Tran Specialty Measurement Operator Cardiology 08/25/19 [address] [place] [address] Kenan Mari Specialty Measurement Operator Pulmonary Disease 08/25/19 [address] [facility] [place] [address] Lorne Andrew Jr., Specialty Measurement Operator Ophthalmology 08/25/19 DO [address] [place] [address] Aracelis Aceves Specialty Measurement Operator Podiatry 08/25/19 [address] [facility] [place] [address] Claude He Specialty Measurement Operator Cerebrovascular 08/25/19 Dariusz [address] [place] [address] Chummer Relationship Specialty Start Date End Date Jason Snider MD PCP - General Internal Medicine 08/10/16 [address] [place] [address] Augusto Tran Specialty Measurement Operator Cardiology 08/25/19 [address] [place] [address] Kenan Mari Specialty Measurement Operator Pulmonary Disease 08/25/19 [address] [place] [address] Lorne Andrew Jr., Specialty Measurement Operator Ophthalmology 08/25/19 DO [address] [place] [address] Aracelis Aceves Specialty Measurement Operator Podiatry 08/25/19 [address] [place] [address] Claude He Specialty Measurement Operator Cerebrovascular 08/25/19 Dariusz [address] [place] [address] Chummer Relationship Specialty Start Date End Date Jason Snider MD PCP - General Internal Medicine 08/10/[address] [place] [address] Augusto Tran Specialty Measurement Operator Cardiology 08/25/19 [address] [place] [address] Kenan Mari Specialty Measurement Operator Pulmonary Disease 08/25/19 [address] [place] [address] Lorne Andrew Jr., Specialty Measurement Operator Ophthalmology 08/25/19 DO [address] [place] [address] Aracelis Aceves Specialty Measurement Operator Podiatry 08/25/19 [address] [place] [address] Claude He Specialty Measurement Operator Cerebrovascular 08/25/19 Dariusz [address] [place] [address] Chummer Relationship Specialty Start Date End Date Jason Snider MD PCP - General Internal Medicine 08/10/16 [address] [facility] [place] [address] Augusto Tran Specialty Measurement Operator Cardiology 08/25/19 [address] [place] [address] Kenan Mari Specialty Measurement Operator Pulmonary Disease 08/25/19 [address] [place] [address] Lorne Andrew Jr., Specialty Measurement Operator Ophthalmology 08/25/19 DO [address] [place] [address] Aracelis Aceves Specialty Measurement Operator Podiatry 08/25/19 [address] [facility] [place] [address] Claude He Specialty Measurement Operator Cerebrovascular 08/25/19 Dariusz [address] [place] [address] Chummer Relationship Specialty Start Date End Date Jason Snider MD PCP - General Internal Medicine 08/10/16 [address] [facility] [place] [address] Augusto Tran Specialty Measurement Operator Cardiology 08/25/19 [address] [place] [address] Kenna Mari Specialty Measurement Operator Pulmonary Disease 08/25/19 [address] [place] [address] Lorne Andrew Jr., Specialty Measurement Operator Ophthalmology 08/25/19 DO [address] [place] [address] Aracelis Aceves Specialty Measurement Operator Podiatry 08/25/19 [address] [place] [address] Claude He Specialty Measurement Operator Cerebrovascular 08/25/19 Dariusz [address] [place] [address] Chummer Relationship Specialty Start Date End Date Jason Snider MD PCP - General Internal Medicine 08/10/16 [address] [facility] [address] Augusto Tran Specialty Measurement Operator Cardiology 08/25/19 [address] [place] [address] Kenan Mari Specialty Measurement Operator Pulmonary Disease 08/25/19 [address] [place] [address] Lorne Andrew Jr., Specialty Measurement Operator Ophthalmology 08/25/19 DO [address] [place] [address] Aracelis Aceves Specialty Measurement Operator Podiatry 08/25/19 [address] [place] [address] Claude He Specialty Measurement Operator Cerebrovascular 08/25/19 Dariusz [address] [place] [address] Chummer Relationship Specialty Start Date End Date Jason Snider MD PCP - General Internal Medicine 08/10/16 [address] [facility] [place] [address] Augusto Tran Specialty Measurement Operator Cardiology 08/25/19 [address] [place] [address] Kenan Mari Specialty Measurement Operator Pulmonary Disease 08/25/19 [address] [place] [address] Lorne Andrew Jr., Specialty Measurement Operator Ophthalmology 08/25/19 DO [address] [place] [address] Aracelis Aceves Specialty Measurement Operator Podiatry 08/25/19 [address] [place] [address] Claude He Specialty Measurement Operator Cerebrovascular 08/25/19 Dariusz [address] [place] [address] Chummer Relationship Specialty Start Date End Date Jason Snider MD PCP - General Internal Medicine 08/10/16 [address] [facility] [place] [address] Augusto Tran Specialty Measurement Operator Cardiology 08/25/19 [address] [place] [address] Kenan Mari Specialty Measurement Operator Pulmonary Disease 08/25/19 [address] [address] Lorne Andrew Jr., Specialty Measurement Operator Ophthalmology 08/25/19 DO [address] [place] [address] Aracelis Aceves Specialty Measurement Operator Podiatry 08/25/19 [address] [place] [address] Claude He Specialty Measurement Operator Cerebrovascular 08/25/19 Dariusz [address] [place] [address] Chummer Relationship Specialty Start Date End Date Jason Snider MD PCP - General Internal Medicine 08/10/16 [address] [facility] [place] [address] Augusto Tran Specialty Measurement Operator Cardiology 08/25/19 [address] [place] [address] Kenan Mari Specialty Measurement Operator Pulmonary Disease 08/25/19 [address] [facility] [address] Lorne Andrew Jr., Specialty Measurement Operator Ophthalmology 08/25/19 DO [address] [place] [address] Aracelis Aceves Specialty Measurement Operator Podiatry 08/25/19 [address] [place] [facility] [place] [address] Claude He Specialty Measurement Operator Cerebrovascular 08/25/19 Dariusz [address] [place] [address] Chummer Relationship Specialty Start Date End Date Jason Snider MD PCP - General Internal Medicine 08/10/16 [address] [place] [address] Augusto Tran Specialty Measurement Operator Cardiology 08/25/19 [address] [place] [address] Kenan Mari Specialty Measurement Operator Pulmonary Disease 08/25/19 [address] [place] [address] Lorne Andrew Jr., Specialty Measurement Operator Ophthalmology 08/25/19 DO [address] [place] [address] Aracelis Aceves Specialty Measurement Operator Podiatry 08/25/19 [address] [facility] [facility] [place] [address] Claude He Specialty Measurement Operator Cerebrovascular 08/25/19 Dariusz [address] [place] [address] Chummer Relationship Specialty Start Date End Date Jason Snider MD PCP - General Internal Medicine 08/10/16 [address] [facility] [place] [address] Augusto Tran Specialty Measurement Operator Cardiology 08/25/19 [address] [place] [address] Kenan Mari Specialty Measurement Operator Pulmonary Disease 08/25/19 [address] [place] [address] Lorne Andrew Jr., Specialty Measurement Operator Ophthalmology 08/25/19 DO [address] [place] [address] Aracelis Aceves Specialty Measurement Operator Podiatry 08/25/19 [address] [place] [address] Claude He Specialty Measurement Operator Cerebrovascular 08/25/19 Dariusz [address] [place] [address] Chummer Relationship Specialty Start Date End Date Jason Snider MD PCP - General Internal Medicine 08/10/16 [address] [facility] [address] Augusto Tran Specialty Measurement Operator Cardiology 08/25/19 [address] [facility] [address] [place] [address] Kenan Mari Specialty Measurement Operator Pulmonary Disease 08/25/19 [address] [facility] [place] [address] Lorne Andrew Jr., Specialty Measurement Operator Ophthalmology 08/25/19 DO [address] [place] [address] Aracelis Aceves Specialty Measurement Operator Podiatry 08/25/19 [address] [place] [address] Claude He Specialty Measurement Operator Cerebrovascular 08/25/19 Dariusz [address] [place] [address] Chummer Relationship Specialty Start Date End Date Jason Snider MD PCP - General Internal Medicine 08/10/16 [address] [facility] [address] Augusto Tran Specialty Measurement Operator Cardiology 08/25/19 [address] [place] [address] Kenan Mari Specialty Measurement Operator Pulmonary Disease 08/25/19 [address] [place] [address] Lorne Andrew Jr., Specialty Measurement Operator Ophthalmology 08/25/19 DO [address] [place] [address] Aracelis Aceves Specialty Measurement Operator Podiatry 08/25/19 [address] [place] [address] Claude He Specialty Measurement Operator Cerebrovascular 08/25/19 Dariusz [address] [place] [address] Chummer Relationship Specialty Start Date End Date Jason Snider MD PCP - General Internal Medicine 08/10/[address] [place] [address] Augusto Tran Specialty Measurement Operator Cardiology 08/25/19 [address] [place] [address] Kenan Mari Specialty Measurement Operator Pulmonary Disease 08/25/19 [address] [place] [address] Lorne Andrew Jr., Specialty Measurement Operator Ophthalmology 08/25/19 DO [address] [place] [address] Aracelis Aceves Specialty Measurement Operator Podiatry 08/25/19 [address] [place] [address] Claude He Specialty Measurement Operator Cerebrovascular 08/25/19 MD Dariusz [address] [place] [address] Chummer Relationship Specialty Start Date End Date Jason Snider MD PCP - General Internal Medicine 08/10/16 [address] [place] [address] Augusto Tran Specialty Measurement Operator Cardiology 08/25/19 [address] [place] [address] Kenan Mari Specialty Measurement Operator Pulmonary Disease 08/25/19 [address] [place] [address] Lorne Andrew Jr., Specialty Measurement Operator Ophthalmology 08/25/19 DO [address] [place] [address] Aracelis Aceves Specialty Measurement Operator Podiatry 08/25/19 [address] [place] [address] Harper Heh Specialty Measurement Operator Cerebrovascular 08/25/19 MD Dariusz [address] [place] [address] Chummer Relationship Specialty Start Date End Date Jason Snider MD PCP - General Internal Medicine 08/10/16 [address] [place] [address] Augusto Tran Specialty Measurement Operator Cardiology 08/25/19 [address] [place] [address] Kenan Mari Specialty Measurement Operator Pulmonary Disease 08/25/19 [address] [place] [address] Lorne Andrew Jr., Specialty Measurement Operator Ophthalmology 08/25/19 DO [address] [place] [address] Aracelis Aceves Specialty Measurement Operator Podiatry 08/25/19 [address] [place] [address] Claude He Specialty Measurement Operator Cerebrovascular 08/25/19 MD Dariusz [address] [place] [address] FOR RECORDS PERTAINING TO PATIENTS [...] BE BASED ON THE PRIMARY CLINICAL RECORDS. [employer] provides no warranty or guarantee of the accuracy or completeness of information in this document.
[2023-02-14 21:48] VITALS: BP 132/52; PULSE 61; RESP 18; TEMP 36.6; O2SAT 95
[2023-02-14 21:49] VITALS: BMI 23.4
--- NOTE | 2023-02-14 22:00 | NURSING ---
Called down to ed. Daughter was w pt in ed and no one knows what his meds are
[2023-02-14] MEDS: 0.9% Normal Saline 1,000 ML 100 ML IV (22:31)
[2023-02-14] MEDS: 0.9% Saline Lock 10 ML Syringe IV (22:31)
[2023-02-14] MEDS: Pravastatin 40 MG Tablet PO (22:37)
[2023-02-14] MEDS: Donepezil HCl 10 MG Tablet PO (22:37)
[2023-02-15 02:33] VITALS: BP 136/80; PULSE 60; RESP 18; TEMP 36.6; O2SAT 94
[2023-02-15 03:10] LABS: Urine Sodium 54 mmol/L (Not Establ.)
[2023-02-15 06:04] VITALS: BP 152/80; PULSE 64; RESP 20; TEMP 36.7; O2SAT 93
[2023-02-15] MEDS: 0.9% Normal Saline 1,000 ML 100 ML IV ×2 (06:06→15:27)
[2023-02-15] MEDS: Levothyroxine 175 MCG Tablet PO (06:07)
[2023-02-15 07:10] LABS: Absolute Neutrophil Count 6.9 X10^3/uL (2.0-7.7); Basophil# 0.05 X10^3/uL; Basophil% 0.5 % (0-1); Hematocrit 37.9 % (40-54); Hemoglobin 12.1 g/dL (13.0-16.5); Lymphocyte % 16.1 % (19-41); Mean Corp Hgb Conc 31.9 g/dL (32-36); Mean Corpuscular Hgb 30.3 pg (27.0-32.0); Mean Corpuscular Volume 94.8 fL (80-94); Mean Platelet Vol. 9.7 fl (6.2-12.0); Monocyte# 1.09 X10^3/uL; NRBC Flagged by Analyzer 0 % (0-5); Neutrophil # 6.94 X10^3/uL (2.7-7.7); Neutrophil % 69.9 % (47-70); Platelet Count 174 K/mm3 (150-450); RBC Distribution Width CV 13.7 % (11.6-14.6); RBC Distribution Width SD 47.6 fl (35.1-43.9); White Blood Count 9.9 K/mm3 (4.4-11.0)
[2023-02-15 07:27] VITALS: O2SAT 94
[2023-02-15 07:36] LABS: ALB/GLOB Ratio 0.8 RATIO (0.9-2.4); AST(SGOT) 143 U/L (15-37); Alanine Aminotransfer ALT/SGPT 38 U/L (16-61); Albumin, Serum 2.7 g/dL (3.2-5.0); Alkaline Phosphatase 60 U/L (45-117); Anion Gap 3 (5-15); BUN 37 mg/dL (7-18); Calcium,Total 9.4 mg/dL (8.5-10.1); Chloride 109 mmol/L (98-107); Creatinine, Serum 1.76 mg/dL (0.70-1.30); EST Glomerular Filtration Rate 39 mL/min (>60); Est Glom Filt Rate - Afr Amer 47 mL/min (>60); Estimated Creatinine Clearance 33.42 ml/min; Globulin 3.2 g/dL (2.2-4.2); Glucose 106 mg/dL (74-106); Potassium 4.3 mmol/L (3.5-5.1); Protein, Total 5.9 g/dL (6.4-8.2); Sodium Level 136 mmol/L (136-145)
--- NOTE | 2023-02-15 07:43 | PN.HOSP_ITS ---
Reason for Visit Reason for Visit: Diagnoses Acute kidney failure, unspecified (02/14/23) Subjective Subjective Does not feels well. Had large formed BM today. Objective Data Objective Data Vital Signs: Vital Signs Temp Pulse Resp BP Pulse Ox O2 Del Method 36.7 C 64 20 H 152/80 H 94 Room Air 02/15/23 06:04 02/15/23 06:04 02/15/23 06:04 02/15/23 06:04 02/15/23 07:27 02/15/23 07:27 Oxygen Delivery Method Room Air Weight: 80.7 kg Body Mass Index (BMI) 23.4 Intake & Output: Intake and Output for Last 24 Hours 02/13/23 02/14/23 02/15/23 23:59 23:59 23:59 Intake Total 1000 / 1050 1008.33 / 1008.33 Balance 1000 / 1050 1008.33 / 1008.33 Lab / Micro Data Result Diagrams: 02/15/23 06:47 02/15/23 06:47 Labs: Laboratory Results - last 24 hr 02/14/23 17:45: WBC 14.5 H, RBC 4.41 L, Hgb 13.5, Hct 41.4, MCV 93.9, MCH 30.6, MCHC 32.6, RDW Std Deviation 46.4 H, RDW Coeff of Priya 13.5, Plt Count 218, MPV 9.5, Immature Gran % (Auto) 0.600, Neut % (Auto) 81.4 H, Lymph % (Auto) 7.4 L, [place] % (Auto) 10.3 H, Eos % (Auto) 0.1, Baso % (Auto) 0.2, Absolute Neuts (auto) 11.8 H, Absolute Lymphs (auto) 1.07, Nucleated RBC % 0 02/14/23 17:45: Sodium 137, Potassium 4.8, Chloride 104, Carbon Dioxide 26.0, Anion Gap 7, BUN 39 H, Creatinine 2.36 H, Estim Creat Clear Calc 24.20, Est GFR (MDRD) Af Amer 34 L, Est GFR (MDRD) Non-Af 28 L, BUN/Creatinine Ratio 16.5, Glucose 120 H, Calcium 10.3 H, Total Bilirubin 0.90, AST 67 H, ALT 26, Alkaline Phosphatase 74, Troponin I High Sens 31, Total Protein 7.1, Albumin 3.3, Globulin 3.8, Albumin/Globulin Ratio 0.9 02/14/23 17:45: Phosphorus 2.3 L, Magnesium 2.2 02/14/23 19:45: Urine Color Yellow, Urine Clarity Clear, Urine pH 6.5, Ur Specific [place] 1.015, Urine Protein 30 H, Urine Glucose (UA) Normal, Urine Ketones Negative, Urine Occult Blood 250 H, Urine Nitrite Negative, Urine Bilirubin Negative, Urine Urobilinogen 1 H, Ur Leukocyte Esterase 25 H, Urine RBC 0-5 SEEN, Urine WBC 0-5 SEEN, Ur Squamous Epith Cells 0-5 SEEN, Urine Bacteria 0 SEEN, Hyaline Casts 0-5 SEEN, Urine Mucus 0 SEEN 02/14/23 21:05: COVID-19 (ARACELI) Not Detected 02/15/23 02:45: Urine Creatinine 173.00 02/15/23 02:45: Ur Random Sodium 54 02/15/23 06:47: WBC 9.9, RBC 4.00 L, Hgb 12.1 L, Hct 37.9 L, MCV 94.8 H, MCH 30.3, MCHC 31.9 L, RDW Std Deviation 47.6 H, RDW Coeff of Priya 13.7, Plt Count 174, MPV 9.7, Immature Gran % (Auto) 0.500, Neut % (Auto) 69.9, Lymph % (Auto) 16.1 L, [place] % (Auto) 11.0 H, Eos % (Auto) 2.0, Baso % (Auto) 0.5, Absolute Neut s (auto) 6.9, Absolute Lymphs (auto) 1.60, Nucleated RBC % 0 02/15/23 06:47: Sodium 136, Potassium 4.3, Chloride 109 H, Carbon Dioxide 24.0, Anion Gap 3 L, BUN 37 H, Creatinine 1.76 H, Estim Creat Clear Calc 33.42, Est GFR (MDRD) Af Amer 47 L, Est GFR (MDRD) Non-Af 39 L, BUN/Creatinine Ratio 21.0 H , Glucose 106, Calcium 9.4, Total Bilirubin 0.70, AST 143 H, ALT 38, Alkaline Phosphatase 60, Total Protein 5.9 L, Albumin 2.7 L, Globulin 3.2, Albumin/Globulin Ratio 0.8 L Micro: Microbiology 02/14/23 18:28 Nasal Secretion SARS-CoV-2 & FLU Antigen (Rapid) - Final Radiography Diagnostic Testing: Radiology Impression Brain CT 02/14/23 18:09 IMPRESSION: Chronic involutional changes without evidence of acute intracranial or calvarial abnormality. Findings appear similar to the PET/CT scan of 2019. Electronically Signed: Chano Hartley DO at 20:04 EDT Reading Location ID and State: [facility] / [place] Tel [phone], Service support , Chest X-Ray 02/14/23 18:15 IMPRESSION: 1. Interval placement of a cardiac pacemaker. There is no acute cardiopulmonary disease or major interval change. Electronically Signed: Chano Hartley DO at 18:49 EDT Reading Location ID and State: [address] [place] [address] Tel [phone], Service support , Abdomen/Pelvis CT 02/14/23 19:14 IMPRESSION: 1. Fluid-filled small bowel loops. The possibility of enteritis cannot BE ruled out. 2. Pulmonary fibrosis with calcified pleural plaque. The possibility of asbestos related pleural disease cannot be ruled out. 3. Evidence of old granulomatous disease. 4. Cardiac pacemaker. 5. Right renal cyst. 6. 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 There is no acute fracture or dislocation. Electronically Signed: Chano Hartley DO at 20:00 EDT Reading Location ID and State: [facility] / [place] Tel [phone], Service support , Physical Exam Const alert and no apparent distress HEENT head/scalp atraumatic and moist oral mucous membranes Resp normal respiratory effort, no retractions, no use of accessory muscles and clear to auscultation bilaterally Cardio regular rate, regular rhythm, S1 normal heart sound and S2 normal heart sound GI normal to inspection, nondistended, normoactive bowel sounds, soft to palpation, non-tender and non-distended Extremity normal to inspection Neuro oriented x3 Assessment & Plan Assessment/Plan (1) UMBERTO (acute kidney injury): PLAN: Improving Acute kidney injury on CKD stage III unclear subtype: Unclear etiology, Admission BUN/Cr 39/2.36, prior baseline creatinine noted to be 1.2-1.4 with last noted 01/11/2023 creatinine 1.4. Will hydrate, hold nephrotoxic medications and repeat chemistry in AM, FENa 0.54% (2) Failure to thrive: PLAN: Adult failure to thrive complicated by underlying dementia with worsening confusion/acute encephalopathy, metabolic with UMBERTO but potentially underlying infectious etiology of unclear specific origin, possibly viral gastroenteritis: We will admit to medical surgical floor, maintain on fall and aspiration precautions, will judiciously hydrate and hold nephrotoxic medication given acute kidney injury with repeat CMP in a.m., to be cautious given significant increase in recent COVID illness will obtain COVID PCR and if stool incontinence with liquid stool will obtain enteric as well as C. difficile to be cautious, PT/OT/case management consultation for discharge planning as patient currently residing by himself and certainly may need assisted versus skilled facility. (3) Leukocytosis: PLAN: Transient Leukocytosis, mild, unclear specific etiology: Patient does present with acute kidney injury possibly a component of dehydration, possibly reactive, urinalysis not marked appearing, chest x-ray with no overt evidence of any pneumonia and CT abdomen pelvis with no obvious findings in the lung bases, COVID PCR negative Cdiff pending PLAN: Plan Chronic stable conditions: * Dementia, unclear type with unclear behavioral disturbance history: We will continue patient home donepezil regimen, complicates presentation, PT/OT/case management consultation for discharge planning. * Chronic interstitial lung disease: Patient with history of ILD, CT A/P with visualized lung portions with evidence of pulmonary fibrotic change, known, as needed albuterol if needed, encourage continued outpatient follow-up with pulmonary medicine as previously arranged. * CAD: Status post revascularization therapy with PCI/CABG w/ CABG 119 VIZCARRA to the LAD and Y graft off the VIZCARRA to the diagonal and PCI 2010 circumflex, will continue aspirin, Plavix, statin, not on beta-cece therapy with history of bradycardia, holding RAVEN inhibitor given UMBERTO is noted. * Carotid disease, PAOD: s/p BL CEA, will continue aspirin, Plavix, statin, not on beta-cece therapy with history of bradycardia, holding RAVEN inhibitor given UMBERTO is noted. * Chart reported history rheumatoid arthritis, psoriatic arthritis: Not on regimen currently per list however in the past had been on methotrexate oral regimen weekly of note, encourage continued outpatient follow-up and assessment as needed. * Chart reported prediabetic history: Not on any medication, glucose appropriate range only mildly elevated to 120 upon current presentation, will obtain hemoglobin A1c to be cautious but defer Accu-Cheks with insulin sliding scale until this results. * Hypertension: We will temporally hold patient home lisinopril given UMBERTO, as needed IV hydralazine interim. * Hyperlipidemia: We will continue patient on statin therapy. * BPH: Status post prior TURP, will continue patient on Flomax/finasteride regimen. Patient also of note does have a history listed of urethral stricture. * Gout: We will continue patient on allopurinol regimen. * Allergic rhinitis: We will temporarily hold patient home loratadine regimen. DVT prophylaxis: Heparin. CODE status: DNRCCA, no intubation Charges/Coding Visit Charges Inpatient E&M: 17393 Subs Hosp L2
[2023-02-15 09:11] VITALS: BP 163/69; PULSE 59; RESP 18; TEMP 36.6; O2SAT 95
[2023-02-15] MEDS: Aspirin 81 MG TAB.CHEW PO (09:22)
[2023-02-15] MEDS: Heparin Injection (Vial) 5,000 UNIT/ML VIAL 5000 UNIT SC ×2 (09:22→22:11)
[2023-02-15] MEDS: Gabapentin 100 MG Capsule PO (09:22)
[2023-02-15] MEDS: Finasteride 5 MG Tablet PO (09:22)
[2023-02-15] MEDS: Clopidogrel Bisulfate 75 MG Tablet PO (09:22)
[2023-02-15] MEDS: Allopurinol 300 MG Tablet PO (09:22)
[2023-02-15] MEDS: Tamsulosin HCl 0.4 MG Capsule 0.400000000000000022 MG PO (09:22)
[2023-02-15 09:43] LABS: Hemoglobin A1c 5.8 % (3.8-5.6)
--- NOTE | 2023-02-15 10:30 | CASEMGMT ---
Addendum entered by Jena Gold 02/15/23 16:15: Provided pt dtr with a list of HHC/SNF providers including quality and resource use data and consistent with the patient?s preferred geographic region, medical needs, and insurance network were provided from the [employer] Guide. Pt dtr to review and determine plan of SNF vs HHC. Addendum entered by Jena Gold 02/15/23 11:18: Dtr met YOANA SERRA in private room to discuss father's care. She states he has been declining physically and not wanting to perform ADL's. She states they have a down payment at [place]. Discussed different options for dc planning. Will await recommendations. Original Note: YOANA SERRA Assessment: Face to Face with pt for initial transition planning/care coordination assessment. YOANA SERRA introduced self and role at [facility], pt voices understanding and consents to assessment. Pt is A/O x2 and needed assist from dtr to answer assessment questions. Pt aware of person and place. Dtr present at bedside. Care providers, pharmacy, and demographics verified/updated. Admitting Dx: UMBERTO, Adult FTT PCP:[facility] Specialists:Marc, cardio; Kamaljit, pulm; Anderson, rheum; Yola, pod; [facility] [place]; Bryce neuro Preferred Pharmacy: [facility] Insurance: [facility] Prescription Benefit: yes LNOK: Radha Vega dtr LW/DPOA: Radha Vega dtr- on file at [facility]. Living Arrangements: Pt lives alone in a single story home with 2 steps to enter with a grab bar. Pt reports he is I in ADL's but has been having difficulty with bathing for the last couple of weeks. Pt denies concerns at home. Transportation: Pt is no longer able to drive since end of Jul. Per dtr, he did not pass his occupational testing for this. [facility] or dtr provides transportation. Pt became upset when dtr states he can not drive. DME/HHC/SNF: Pt has a walker at home but does not typically use AD. Pt has [facility] out of [place] that is privately paid for 7 days a week from 10am-6pm. They provide pt with med administration, meals and laundry. Pt has recently had PT at home through [facility]. Pt denies SNF stays. Pt states no concerns with going home at time of dc. Pt dtr states she has been looking into AL for pt. Pt states he would be open to [facility] if it is recommended. Pt dtr states she wants what is best for pt and if that is a SNF for s/t therapy, she would be agreeable to that. Therapy evals pending. Pt states no further concerns/needs. CM to follow. Advised pt to ask CM if any further question/concerns/needs arise, voices understanding. Pt Goal: Home Plan: TBD; pending therapy evals.
[2023-02-15] MEDS: Menthol/Lanolin/Calamine/Znox 113 GM Tube 1 APPLIC TOPICAL ×3 (14:45→22:12)
[2023-02-15 15:25] VITALS: BP 121/51; PULSE 60; RESP 18; TEMP 36.8; O2SAT 97
[2023-02-15 22:09] VITALS: BP 163/69; PULSE 61; RESP 18; TEMP 36.7; O2SAT 96
[2023-02-15] MEDS: Donepezil HCl 10 MG Tablet PO (22:11)
[2023-02-15] MEDS: Pravastatin 40 MG Tablet PO (22:11)
[2023-02-16] VITALS (7 sets, daily range): BP systolic 95–171; BP diastolic 52–84; PULSE 59–62; RESP 16–22; TEMP 36.3–37.4; O2SAT 93–97; BMI 24.5
[2023-02-16] MEDS: 0.9% Normal Saline 1,000 ML 100 ML IV ×3 (01:06→18:28)
[2023-02-16] MEDS: MELATONIN 3 MG TABLET PO ×2 (01:25→20:36)
[2023-02-16] MEDS: Acetaminophen 325 MG Tablet 650 MG PO ×2 (01:29→20:36)
[2023-02-16] MEDS: Menthol/Lanolin/Calamine/Znox 113 GM Tube 1 APPLIC TOPICAL ×3 (06:42→20:39)
[2023-02-16] MEDS: Levothyroxine 175 MCG Tablet PO (06:42)
[2023-02-16] MEDS: hydrALAZINE 20 MG/ML Vial 10 MG IV (06:46)
[2023-02-16 07:27] LABS: Basophil# 0.06 X10^3/uL; Basophil% 0.9 % (0-1); Eosinophil# 0.44 X10^3/uL; Eosinophils% 6.5 % (0-5); Hematocrit 35.4 % (40-54); Hemoglobin 11.3 g/dL (13.0-16.5); Lymphocyte % 22.2 % (19-41); Mean Corp Hgb Conc 31.9 g/dL (32-36); Mean Corpuscular Hgb 30.5 pg (27.0-32.0); Mean Corpuscular Volume 95.4 fL (80-94); Mean Platelet Vol. 9.8 fl (6.2-12.0); Monocyte# 0.76 X10^3/uL; Monocyte% 11.2 % (0-10); NRBC Flagged by Analyzer 0 % (0-5); Neutrophil # 3.99 X10^3/uL (2.7-7.7); Neutrophil % 59.1 % (47-70); Platelet Count 167 K/mm3 (150-450); RBC Distribution Width CV 13.5 % (11.6-14.6); RBC Distribution Width SD 47.2 fl (35.1-43.9); Red Blood Count 3.71 M/mm3 (4.6-6.2); White Blood Count 6.8 K/mm3 (4.4-11.0)
--- NOTE | 2023-02-16 07:44 | PN.HOSP_ITS ---
Reason for Visit Reason for Visit: Diagnoses Elevated white blood cell count, unspecified (02/14/23) Acute kidney failure, unspecified (02/14/23) Subjective Subjective Complains of abdominal cramps and needing to go to the bathroom. Objective Data Objective Data Vital Signs: Vital Signs Temp Pulse Resp BP Pulse Ox O2 Del Method 36.6 C 62 18 171/84 H 95 Room Air 02/16/23 06:38 02/16/23 06:46 02/16/23 06:38 02/16/23 06:46 02/16/23 06:38 02/16/23 06:38 Oxygen Delivery Method Room Air Weight: 84 kg Body Mass Index (BMI) 24.5 Intake & Output: Intake and Output for Last 24 Hours 02/14/23 02/15/23 02/16/23 23:59 23:59 23:59 Intake Total 1000 / 1050 2923.33 / 2923.33 965 / 965 Balance 1000 / 1050 2923.33 / 2923.33 965 / 965 Lab / Micro Data Result Diagrams: 02/16/23 06:54 02/16/23 06:54 Labs: Laboratory Results - last 24 hr 02/15/23 06:47: Hemoglobin A1c 5.8 H 02/16/23 06:54: WBC 6.8, RBC 3.71 L, Hgb 11.3 L, Hct 35.4 L, MCV 95.4 H, MCH 30.5, MCHC 31.9 L, RDW Std Deviation 47.2 H, RDW Coeff of Priya 13.5, Plt Count 167, MPV 9.8, Immature Gran % (Auto) 0.100, Neut % (Auto) 59.1, Lymph % (Auto) 22.2, [place] % (Auto) 11.2 H, Eos % (Auto) 6.5 H, Baso % (Auto) 0.9, Absolute Neuts (auto) 4.0, Absolute Lymphs (auto) 1.50, Nucleated RBC % 0 Micro: Microbiology 02/15/23 07:33 Stool C. difficile DNA Amplification - Final 02/15/23 09:10 Stool Enteric Bacteriology - Final 02/14/23 18:28 Nasal Secretion SARS-CoV-2 & FLU Antigen (Rapid) - Final Physical Exam Const Constitutional Narrative: anxious. yelling. HEENT head/scalp atraumatic Resp normal respiratory effort, no retractions, no use of accessory muscles and clear to auscultation bilaterally Cardio regular rate, regular rhythm, S1 normal heart sound and S2 normal heart sound GI GI Narrative: tensed up abdomen. non-distended. normal BS. Psych affect normal Assessment & Plan Assessment/Plan (1) UMBERTO (acute kidney injury): PLAN: Improving and resolved. Acute kidney injury on CKD stage III unclear subtype: Unclear etiology, Admission BUN/Cr 39/2.36, prior baseline creatinine noted to be 1.2-1.4 with last noted 01/11/2023 creatinine 1.4. Will hydrate, hold nephrotoxic medications and repeat chemistry in AM, FENa 0.54% (2) Failure to thrive: PLAN: Adult failure to thrive complicated by underlying dementia with worsening confusion/acute encephalopathy, metabolic with UMBERTO but potentially underlying infectious etiology of unclear specific origin, possibly viral gastroenteritis: We will admit to medical surgical floor, maintain on fall and aspiration precautions, will judiciously hydrate and hold nephrotoxic medication given acute kidney injury with repeat CMP in a.m., to be cautious given significant increase in recent COVID illness will obtain COVID PCR and if stool incontinence with liquid stool will obtain enteric as well as C. difficile to be cautious, PT/OT/case management consultation for discharge planning as patient currently residing by himself and certainly may need assisted versus skilled facility. (3) Leukocytosis: PLAN: Transient Leukocytosis, mild, unclear specific etiology: Patient does present with acute kidney injury possibly a component of dehydration, possibly reactive, urinalysis not marked appearing, chest x-ray with no overt evidence of any pneumonia and CT abdomen pelvis with no obvious findings in the lung bases, COVID PCR negative Cdiff negative. Enteric panel negative. (4) Enteritis: PLAN: Improved Possible on CT from 02/14. Other possibilities include ileus, SBO PLAN: Plan Chronic stable conditions: * Dementia, unclear type with unclear behavioral disturbance history: We will continue patient home donepezil regimen, complicates presentation, PT/OT/case management consultation for discharge planning. * Chronic interstitial lung disease: Patient with history of ILD, CT A/P with visualized lung portions with evidence of pulmonary fibrotic change, known, as needed albuterol if needed, encourage continued outpatient follow-up with pulmonary medicine as previously arranged. * CAD: Status post revascularization therapy with PCI/CABG w/ CABG 119 VIZCARRA to the LAD and Y graft off the VIZCARRA to the diagonal and PCI 2010 circumflex, will continue aspirin, Plavix, statin, not on beta-cece therapy with history of bradycardia, holding RAVEN inhibitor given UMBERTO is noted. * Carotid disease, PAOD: s/p BL CEA, will continue aspirin, Plavix, statin, not on beta-cece therapy with history of bradycardia, holding RAVEN inhibitor given UMBETRO is noted. * Chart reported history rheumatoid arthritis, psoriatic arthritis: Not on regimen currently per list however in the past had been on methotrexate oral regimen weekly of note, encourage continued outpatient follow-up and assessment as needed. * Chart reported prediabetic history: Not on any medication, glucose appropriate range only mildly elevated to 120 upon current presentation, will obtain hem oglobin A1c to be cautious but defer Accu-Cheks with insulin sliding scale until this results. * Hypertension: We will temporally hold patient home lisinopril given UMBERTO, as needed IV hydralazine interim. * Hyperlipidemia: We will continue patient on statin therapy. * BPH: Status post prior TURP, will continue patient on Flomax/finasteride regimen. Patient also of note does have a history listed of urethral stricture. * Gout: We will continue patient on allopurinol regimen. * Allergic rhinitis: We will temporarily hold patient home loratadine regimen. DVT prophylaxis: Heparin. CODE status: DNRCCA, no intubation Disposition: [facility] v [facility] Charges/Coding Visit Charges Inpatient E&M: 24292 Subs Hosp L2
[2023-02-16 08:00] LABS: Anion Gap 3 (5-15); BUN 30 mg/dL (7-18); BUN/Creat Ratio 22.2 RATIO (10-20); Calcium,Total 9.1 mg/dL (8.5-10.1); Chloride 110 mmol/L (98-107); Creatinine, Serum 1.35 mg/dL (0.70-1.30); EST Glomerular Filtration Rate 53 mL/min (>60); Est Glom Filt Rate - Afr Amer 64 mL/min (>60); Estimated Creatinine Clearance 43.57 ml/min; Glucose 97 mg/dL (74-106); Potassium 4.1 mmol/L (3.5-5.1); Sodium Level 137 mmol/L (136-145)
--- NOTE | 2023-02-16 08:02 | CASEMGMT ---
Social Work SW received email from pt daughter, who is decision maker, due to pt dementia and inability to make decisions for self. Pt daughter has requested SNF providers in order of preference: [facility], [facility], then [facility]. SW sent referral to Kianna at TCU and will await determination. PLAN: TCU, pending acceptance and precert ARUN Serna
[2023-02-16] MEDS: Allopurinol 300 MG Tablet PO (08:08)
[2023-02-16] MEDS: Clopidogrel Bisulfate 75 MG Tablet PO (08:08)
[2023-02-16] MEDS: Gabapentin 100 MG Capsule PO (08:08)
[2023-02-16] MEDS: Tamsulosin HCl 0.4 MG Capsule 0.400000000000000022 MG PO (08:08)
[2023-02-16] MEDS: Aspirin 81 MG TAB.CHEW PO (08:08)
[2023-02-16] MEDS: Heparin Injection (Vial) 5,000 UNIT/ML VIAL 5000 UNIT SC ×2 (08:09→20:36)
[2023-02-16] MEDS: Finasteride 5 MG Tablet PO (08:09)
--- NOTE | 2023-02-16 12:08 | CASEMGMT ---
Addendum entered by Jena Gold 02/16/23 15:29: Received confirmation from [facility] that they will accept pt for SOC. Made aware to call dtr for contact and that she will be present for the admission visit. Pt and family aware. Addendum entered by Jena Gold 02/16/23 15:18: Pt dtr states pt does have a walker at home. She will check to see if appropriate and let YOANA SERRA know if pt will need a new one. Addendum entered by Jena Gold 02/16/23 15:10: Received notification from [facility] that TCU reviewed chart and felt appropriate for home. YOANA SERRA into pt room, spoke with pt and dtr and son in law, they are aware. They are trying to increase hours for the private duty care to extend into the evening. Pt dtr has chosen [facility] for HHC. TC to [facility], referral made, will await acceptance. Original Note: YOANA SERRA into pt room and pt receiving therapy, spoke with therapist after session. Pt ambulated 250 ft. Met with pt dtr and her privately outside of room. Discussed how pt did with therapy. Dtr concerned that pt needs max cueing for therapy and that he will not do this at home even with private aides present. Discussed that the insurance may not be inclined to approve SNF level of care d/t how well pt ambulated. She requests to ask the [facility] to review chart to verify. SW to notify TCU. Discussed HHC options as well as AL.
[2023-02-16] MEDS: Donepezil HCl 10 MG Tablet PO (20:37)
[2023-02-16] MEDS: Pravastatin 40 MG Tablet PO (20:37)
[2023-02-17] VITALS: BP 151/84; PULSE 59; RESP 18; TEMP 36.7; O2SAT 95
[2023-02-17] MEDS: Haloperidol Lactate 5 MG/ML Vial 4 MG IM (01:18)
[2023-02-17] MEDS: 0.9% Normal Saline 1,000 ML 100 ML IV (03:20)
[2023-02-17] MEDS: Menthol/Lanolin/Calamine/Znox 113 GM Tube 1 APPLIC TOPICAL ×2 (03:20→20:04)
[2023-02-17] MEDS: Levothyroxine 175 MCG Tablet PO (03:20)
[2023-02-17] MEDS: Acetaminophen 325 MG Tablet 650 MG PO ×2 (03:30→20:03)
--- NOTE | 2023-02-17 03:32 | NURSING ---
Pt keeps setting off bed exit. Pt very confused. Pt c/o that he cant relax. tylenol given for general pain. This nurse has to sit in pt room due pt unable to stay in bed.
--- NOTE | 2023-02-17 04:00 | NURSING ---
unable to keep pt in bed. pt remains very restless. Pt put in a chair at the nurses station to keep him safe 0500 pt taken to bathroom and put back to bed
[2023-02-17 04:41] VITALS: BMI 24.5
--- NOTE | 2023-02-17 07:22 | PN.HOSP_ITS ---
Reason for Visit Reason for Visit: Diagnoses Elevated white blood cell count, unspecified (02/14/23) Noninfective gastroenteritis and colitis, unspecified (02/14/23) Acute kidney failure, unspecified (02/14/23) Subjective Subjective Agitated overnight. Had urinary retention and catheter placed. Patient no recollection of our encounter yesterday nor any of the events last night. Objective Data Objective Data Vital Signs: Vital Signs Temp Pulse Resp BP Pulse Ox O2 Del Method 36.7 C 59 L 18 151/84 H 95 Room Air 02/17/23 00:00 02/17/23 00:00 02/17/23 00:00 02/17/23 00:00 02/17/23 00:00 02/17/23 00:00 Oxygen Delivery Method Room Air Weight: 83.9 kg Body Mass Index (BMI) 24.5 Intake & Output: Intake and Output for Last 24 Hours 02/15/23 02/16/23 02/17/23 23:59 23:59 23:59 Intake Total 2923.33 / 2923.33 2701.66 / 2701.66 886.67 / 886.67 Output Total 850 / 850 Balance 2923.33 / 2923.33 2701.66 / 2701.66 36.67 / 36.67 Lab / Micro Data Result Diagrams: 02/16/23 06:54 02/16/23 06:54 Labs: Laboratory Results - last 24 hr 02/16/23 06:54: WBC 6.8, RBC 3.71 L, Hgb 11.3 L, Hct 35.4 L, MCV 95.4 H, MCH 30.5, MCHC 31.9 L, RDW Std Deviation 47.2 H, RDW Coeff of Priya 13.5, Plt Count 167, MPV 9.8, Immature Gran % (Auto) 0.100, Neut % (Auto) 59.1, Lymph % (Auto) 22.2, [place] % (Auto) 11.2 H, Eos % (Auto) 6.5 H, Baso % (Auto) 0.9, Absolute Neuts (auto) 4.0, Absolute Lymphs (auto) 1.50, Nucleated RBC % 0 02/16/23 06:54: Sodium 137, Potassium 4.1, Chloride 110 H, Carbon Dioxide 24.0, Anion Gap 3 L, BUN 30 H, Creatinine 1.35 H, Estim Creat Clear Calc 43.57, Est GFR (MDRD) Af Amer 64, Est GFR (MDRD) Non-Af 53 L, BUN/Creatinine Ratio 22.2 H, Glucose 97, Calcium 9.1 Micro: Microbiology 02/15/23 07:33 Stool C. difficile DNA Amplification - Final 02/15/23 09:10 Stool Enteric Bacteriology - Final 02/14/23 18:28 Nasal Secretion SARS-CoV-2 & FLU Antigen (Rapid) - Final Physical Exam Const alert and no apparent distress Constitutional Narrative: pleasant today. Resp normal respiratory effort, no retractions, no use of accessory muscles and clear to auscultation bilaterally Cardio regular rate, regular rhythm, S1 normal heart sound and S2 normal heart sound GI normal to inspection, nondistended, normoactive bowel sounds, soft to palpation, non-tender and non-distended Neuro oriented x3 Assessment & Plan Assessment/Plan (1) UMBRETO (acute kidney injury): PLAN: Improving and resolved. Acute kidney injury on CKD stage III unclear subtype: Unclear etiology, Admission BUN/Cr 39/2.36, prior baseline creatinine noted to be 1.2-1.4 with last noted 01/11/2023 creatinine 1.4. Will hydrate, hold nephrotoxic medications and repeat chemistry in AM, FENa 0.54% (2) Failure to thrive: PLAN: Adult failure to thrive complicated by underlying dementia with worsening confusion/acute encephalopathy, metabolic with UMBERTO but potentially underlying infectious etiology of unclear specific origin, possibly viral gastroenteritis: We will admit to medical surgical floor, maintain on fall and aspiration precautions, will judiciously hydrate and hold nephrotoxic medication given acute kidney injury with repeat CMP in a.m., to be cautious given significant increase in recent COVID illness will obtain COVID PCR and if stool incontinence with liquid stool will obtain enteric as well as C. difficile to be cautious, PT/OT/case management consultation for discharge planning as patient currently residing by himself and certainly may need assisted versus skilled facility. (3) Leukocytosis: PLAN: Transient Leukocytosis, mild, unclear specific etiology: Patient does present with acute kidney injury possibly a component of dehydration, possibly reactive, urinalysis not marked appearing, chest x-ray with no overt evidence of any pneumonia and CT abdomen pelvis with no obvious findings in the lung bases, COVID PCR negative Cdiff negative. Enteric panel negative. (4) Enteritis: PLAN: Improved Possible on CT from 02/14. Other possibilities include ileus, SBO (5) Delirium: PLAN: Hyperactive, though currently stable. Complicated by pt's underlying dementia. PLAN: Plan Chronic stable conditions: * Dementia, unclear type with unclear behavioral disturbance history: We will continue patient home donepezil regimen, complicates presentation, * Chronic interstitial lung disease: Patient with history of ILD, CT A/P with visualized lung portions with evidence of pulmonary fibrotic change, known, as needed albuterol if needed, encourage continued outpatient follow-up with pulmonary medicine as previously arranged. * CAD: Status post revascularization therapy with PCI/CABG w/ CABG 119 VIZCARRA to the LAD and Y graft off the VIZCARRA to the diagonal and PCI 2010 circumflex, will continue aspirin, Plavix, statin, not on beta-cece therapy with history of bradycardia, holding RAVEN inhibitor given UMBERTO is noted. * Carotid disease, PAOD: s/p BL CEA, will continue aspirin, Plavix, statin, not on beta-cece therapy with history of bradycardia, holding RAVEN inhibitor given UMBERTO is noted. * Chart reported history rheumatoid arthritis, psoriatic arthritis: Not on regimen currently per list however in the past had been on methotrexate oral regimen weekly of note, encourage continued outpatient follow-up and assessment as needed. * Chart reported prediabetic history: Not on any medication, glucose appropriate range only mildly elevated to 120 upon current presentation, will obtain hemoglobin A1c to be cautious but defer Accu-Cheks with insulin sliding scale until this results. * Hypertension: We will temporally hold patient home lisinopril given UMBERTO, as needed IV hydralazine interim. * Hyperlipidemia: We will continue patient on statin therapy. * BPH: Status post prior TURP, will continue patient on Flomax/finasteride regimen. Patient also of note does have a history listed of urethral stricture. * Gout: We will continue patient on allopurinol regimen. * Allergic rhinitis: We will temporarily hold patient home loratadine regimen. DVT prophylaxis: Heparin. CODE status: DNRCCA, no intubation Disposition: TBD, plan initially was for [facility], but I have significant concerns about him managing on his own. Charges/Coding Visit Charges Inpatient E&M: 50169 Subs Hosp L2
[2023-02-17 08:03] VITALS: BP 183/91; PULSE 60; RESP 18; TEMP 36.4; O2SAT 97
[2023-02-17] MEDS: Aspirin 81 MG TAB.CHEW PO (08:16)
[2023-02-17] MEDS: Clopidogrel Bisulfate 75 MG Tablet PO (08:16)
[2023-02-17] MEDS: Allopurinol 300 MG Tablet PO (08:16)
[2023-02-17 08:17] VITALS: PULSE 60
[2023-02-17] MEDS: Heparin Injection (Vial) 5,000 UNIT/ML VIAL 5000 UNIT SC ×2 (08:17→20:03)
[2023-02-17] MEDS: Finasteride 5 MG Tablet PO (08:17)
[2023-02-17] MEDS: Tamsulosin HCl 0.4 MG Capsule 0.400000000000000022 MG PO (08:17)
[2023-02-17] MEDS: hydrALAZINE 20 MG/ML Vial 10 MG IV (08:17)
[2023-02-17] MEDS: 0.9% Saline Lock 10 ML Syringe IV (08:19)
[2023-02-17] MEDS: Gabapentin 100 MG Capsule PO (08:19)
--- NOTE | 2023-02-17 09:06 | CASEMGMT ---
Addendum entered by Jena Gold 02/17/23 14:16: ELVIN Armstrong at [facility], referral cancelled. Addendum entered by Jena Gold 02/17/23 11:01: Met with pt dtr in the private meeting room. She is apprehensive about having pt go home after his night lastnight. She is requesting a referral made to SNF and if denied, they will private pay. Updated SW who also met with pt dtr. She asks to meet with her to determine first preference. Original Note: Pt dtr emailed this RN CM that pt has a FWW at home. No DME needed at this time for dc. Pt is now not dc'ing today. ELVIN Armstrong at [facility] to make aware.
--- NOTE | 2023-02-17 12:08 | CASEMGMT ---
Addendum entered by Carol Arevalo 02/17/23 15:56: [facility] messaged with acceptance. Precert to be started today. SW updated pt daughter and informed insurance process will be started. Daughter voiced understanding, is aware insurance auth could take a day or two to be determined. ARUN Serna Original Note: Social Work SW met with pt daughter to discuss options for d/c once again. Pt had some agitation overnight and it has created some concern for daughter in taking pt home with [facility]. Daughter would like to try for SNF once again. Daughter asked for SW to send referral to [facility]. SW explained pt may not be approved by insurance due to his ambulation ability, as documented in the therapy notes. Daughter understanding, wants to attempt anyway and shared intent to private pay for SNF if insurance will not cover. SW sent referral to [facility] at this time. PLAN: [facility], pending acceptance and precert. ARUN Serna
[2023-02-17 14:26] VITALS: BP 128/60; PULSE 60; RESP 18; TEMP 36.7; O2SAT 98
[2023-02-17 16:40] VITALS: O2SAT 98
[2023-02-17] MEDS: hydrOXYzine PAM 25 MG Capsule 50 MG PO (18:55)
[2023-02-17] MEDS: traZODone 50 MG Tablet PO (20:03)
[2023-02-17] MEDS: Pravastatin 40 MG Tablet PO (20:03)
[2023-02-17] MEDS: Donepezil HCl 10 MG Tablet PO (20:03)
[2023-02-17] MEDS: MELATONIN 3 MG TABLET PO (20:03)
[2023-02-17 20:25] VITALS: BP 144/77; PULSE 68; RESP 18; TEMP 36.7; O2SAT 97
--- NOTE | 2023-02-18 06:31 | NURSING ---
At 0030 pt fell asleep after being awake for approximately 48hrs. The pt was rounded on by nursing staff hourly, throughout the night. Staff did not wake pt this AM to encourage circadian rhythm.
--- NOTE | 2023-02-18 07:18 | PN.HOSP_ITS ---
Reason for Visit Reason for Visit: Diagnoses Elevated white blood cell count, unspecified (02/14/23) Noninfective gastroenteritis and colitis, unspecified (02/14/23) Acute kidney failure, unspecified (02/14/23) Disorientation, unspecified (02/14/23) Subjective Subjective Feel sleep around 0030. Patient denies any complaints but later in the morning, patient's daughter was there and patient was confused and slurring his words. By time staff arrived back patient was back to his normal self. Objective Data Objective Data Vital Signs: Vital Signs Temp Pulse Resp BP Pulse Ox O2 Del Method 36.7 C 68 18 144/77 H 97 Room Air 02/17/23 20:25 02/17/23 20:25 02/17/23 20:25 02/17/23 20:25 02/17/23 20:25 02/17/23 20:25 Oxygen Delivery Method Room Air Weight: 83.9 kg Body Mass Index (BMI) 24.5 Intake & Output: Intake and Output for Last 24 Hours 02/16/23 02/17/23 02/18/23 23:59 23:59 23:59 Intake Total 2701.66 / 2701.66 1441.34 / 1441.34 0 / 0 Output Total 3200 / 3200 Balance 2701.66 / 2701.66 -1758.66 / -1758.66 0 / 0 Lab / Micro Data Result Diagrams: 02/16/23 06:54 02/16/23 06:54 Micro: Microbiology 02/15/23 07:33 Stool C. difficile DNA Amplification - Final 02/15/23 09:10 Stool Enteric Bacteriology - Final 02/14/23 18:28 Nasal Secretion SARS-CoV-2 & FLU Antigen (Rapid) - Final Physical Exam Const alert and no apparent distress HEENT head/scalp atraumatic and moist oral mucous membranes Resp normal respiratory effort, no retractions, no use of accessory muscles and clear to auscultation bilaterally Cardio regular rate, regular rhythm, S1 normal heart sound and S2 normal heart sound GI normal to inspection, nondistended, normoactive bowel sounds, soft to palpation, non-tender and non-distended Assessment & Plan Assessment/Plan (1) UMBERTO (acute kidney injury): PLAN: Improving and resolved. Acute kidney injury on CKD stage III unclear subtype: Unclear etiology, Admission BUN/Cr 39/2.36, prior baseline creatinine noted to be 1.2-1.4 with last noted 01/11/2023 creatinine 1.4. Will hydrate, hold nephrotoxic medications and repeat chemistry in AM, FENa 0.54% (2) Failure to thrive: PLAN: Adult failure to thrive complicated by underlying dementia with worsening confusion/acute encephalopathy, metabolic with UMBERTO but potentially underlying infectious etiology of unclear specific origin, possibly viral gastroenteritis: We will admit to medical surgical floor, maintain on fall and aspiration precautions, will judiciously hydrate and hold nephrotoxic medication given acute kidney injury with repeat CMP in a.m., to be cautious given significant increase in recent COVID illness will obtain COVID PCR and if stool incontinence with liquid stool will obtain enteric as well as C. difficile to be cautious, PT/OT/case management consultation for discharge planning as patient currently residing by himself and certainly may need assisted versus skilled facility. (3) Leukocytosis: PLAN: Transient Leukocytosis, mild, unclear specific etiology: Patient does present with acute kidney injury possibly a component of dehydration, possibly reactive, urinalysis not marked appearing, chest x-ray with no overt evidence of any pneumonia and CT abdomen pelvis with no obvious findings in the lung bases, COVID PCR negative Cdiff negative. Enteric panel negative. (4) Enteritis: PLAN: Improved Possible on CT from 02/14. Other possibilities include ileus, SBO (5) Delirium: PLAN: Hyperactive, though currently stable. Complicated by pt's underlying dementia. Lactic and wanes but overall better today after he slept. Discussed with the patient's daughter granddaughter that this may be variable while the patient still in the hospital. Avoid potentiating medication discharging him on a routine sleep regimen PLAN: Plan Chronic stable conditions: * Dementia, unclear type with unclear behavioral disturbance history: We will continue patient home donepezil regimen, complicates presentation, * Chronic interstitial lung disease: Patient with history of ILD, CT A/P with visualized lung portions with evidence of pulmonary fibrotic change, known, as needed albuterol if needed, encourage continued outpatient follow-up with pulmonary medicine as previously arranged. * CAD: Status post revascularization therapy with PCI/CABG w/ CABG 119 VIZCARRA to the LAD and Y graft off the VIZCARRA to the diagonal and PCI 2010 circumflex, will continue aspirin, Plavix, statin, not on beta-cece therapy with history of bradycardia, holding RAVEN inhibitor given UMBERTO is noted. * Carotid disease, PAOD: s/p BL CEA, will continue aspirin, Plavix, statin, not on beta-cece therapy with history of bradycardia, holding RAVEN inhibitor given UMBERTO is noted. * Chart reported history rheumatoid arthritis, psoriatic arthritis: Not on regimen currently per list however in the past had been on methotrexate oral regimen weekly of note, encourage continued outpatient follow-up and assessment as needed. * Chart reported prediabetic history: Not on any medication, glucose appropriate range only mildly elevated to 120 upon current presentation, will obtain hemoglobin A1c to be cautious but defer Accu-Cheks with insulin sliding scale until this results. * Hypertension: We will temporally hold patient home lisinopril given UMBERTO, as needed IV hydralazine interim. * Hyperlipidemia: We will continue patient on statin therapy. * BPH: Status post prior TURP, will continue patient on Flomax/finasteride regimen. Patient also of note does have a history listed of urethral strictur e. * Gout: We will continue patient on allopurinol regimen. * Allergic rhinitis: We will temporarily hold patient home loratadine regimen. DVT prophylaxis: Heparin. CODE status: DNRCCA, no intubation Disposition: TBD, plan initially was for [facility], but I have significant concerns about him managing on his own. Charges/Coding Visit Charges Inpatient E&M: 67648 Subs Hosp L2
[2023-02-18 08:00] VITALS: O2SAT 96
[2023-02-18 09:14] VITALS: BP 132/71; PULSE 72; RESP 18; TEMP 36.8; O2SAT 97
[2023-02-18] MEDS: Tamsulosin HCl 0.4 MG Capsule 0.400000000000000022 MG PO (09:18)
[2023-02-18] MEDS: Clopidogrel Bisulfate 75 MG Tablet PO (09:19)
[2023-02-18] MEDS: Heparin Injection (Vial) 5,000 UNIT/ML VIAL 5000 UNIT SC ×2 (09:19→20:42)
[2023-02-18] MEDS: Allopurinol 300 MG Tablet PO (09:19)
[2023-02-18] MEDS: Aspirin 81 MG TAB.CHEW PO (09:19)
[2023-02-18] MEDS: Finasteride 5 MG Tablet PO (09:19)
[2023-02-18 11:14] VITALS: BP 124/66; PULSE 73; RESP 18; TEMP 37.1; O2SAT 96
--- NOTE | 2023-02-18 11:15 | NURSING ---
in to see patient with primary RN. Daughter at bedside tearful states pt's speech is different. neuro eval completed with primary RN. pt sl. mumbled speech at times, drowsy but does easily awakens. able to articulate phrases such as [id number], and [id number] without difficulty alert and oriented except time. no further gross deficits noted. pt c/o being cold and thirsty. Generalized weakness noted. vs and ot checked. Dr. Oliver sent text requesting him to come see patient. Dr. Oliver returned call and informed of above, including daughters request for someone come evaluate him. emotional support given to patient and daughter.
[2023-02-18 11:40] LABS: Bedside Glucose 169 mg/dL (74-106)
[2023-02-18 12:10] VITALS: O2SAT 95
--- NOTE | 2023-02-18 12:10 | CASEMGMT ---
Social Work SW met with pt, dgt and granddgt to discuss discharge plan. Family updated that [facility] can accept. Insurance auth is pending. Pt dgt states if insurance is denied pt will pay privately at [facility]. [place] list from [facility] provided to pt dgt. Phone call to Nadja at [facility] and they are able to accept pt private pay if insurance denies. SW sent updated therapy notes to [facility] for insurance. Emotional support provided to pt family regarding decline of pt and need for SNF. Plan: [facility], pending ARUN Denny
[2023-02-18 15:14] VITALS: BP 143/69; PULSE 66; RESP 18; TEMP 36.8; O2SAT 95
[2023-02-18] MEDS: Menthol/Lanolin/Calamine/Znox 113 GM Tube 1 APPLIC TOPICAL ×2 (15:19→20:48)
[2023-02-18] MEDS: MELATONIN 3 MG TABLET PO (20:41)
[2023-02-18] MEDS: Pravastatin 40 MG Tablet PO (20:41)
[2023-02-18] MEDS: traZODone 50 MG Tablet PO (20:41)
[2023-02-18] MEDS: Donepezil HCl 10 MG Tablet PO (20:42)
[2023-02-18] MEDS: Acetaminophen 325 MG Tablet 650 MG PO (20:48)
[2023-02-18 20:57] VITALS: BP 128/68; PULSE 73; RESP 18; TEMP 36.7; O2SAT 95
--- NOTE | 2023-02-19 07:49 | PN.HOSP_ITS ---
Reason for Visit Reason for Visit: Diagnoses Elevated white blood cell count, unspecified (02/14/23) Noninfective gastroenteritis and colitis, unspecified (02/14/23) Acute kidney failure, unspecified (02/14/23) Disorientation, unspecified (02/14/23) Subjective Subjective Feels well. Objective Data Objective Data Vital Signs: Vital Signs Temp Pulse Resp BP Pulse Ox O2 Del Method 36.7 C 73 18 128/68 H 95 Room Air 02/18/23 20:57 02/18/23 20:57 02/18/23 20:57 02/18/23 20:57 02/18/23 20:57 02/18/23 20:58 Oxygen Delivery Method Room Air Weight: 83.9 kg Body Mass Index (BMI) 24.5 Intake & Output: Intake and Output for Last 24 Hours 02/17/23 02/18/23 02/19/23 23:59 23:59 23:59 Intake Total 1441.34 / 1441.34 0 / 0 Output Total 3200 / 3200 900 / 900 Balance -1758.66 / -1758.66 -900 / -900 Lab / Micro Data Result Diagrams: 02/16/23 06:54 02/16/23 06:54 Labs: Laboratory Results - last 24 hr 02/18/23 11:14: POC Glucose 169 H Micro: Microbiology 02/15/23 07:33 Stool C. difficile DNA Amplification - Final 02/15/23 09:10 Stool Enteric Bacteriology - Final 02/14/23 18:28 Nasal Secretion SARS-CoV-2 & FLU Antigen (Rapid) - Final Physical Exam Const alert and no apparent distress HEENT head/scalp atraumatic and moist oral mucous membranes Resp normal respiratory effort, no retractions, no use of accessory muscles and clear to auscultation bilaterally Cardio regular rate, regular rhythm, S1 normal heart sound and S2 normal heart sound GI normal to inspection, nondistended, normoactive bowel sounds, soft to palpation, non-tender and non-distended Assessment & Plan Assessment/Plan (1) UMBERTO (acute kidney injury): PLAN: Improving and resolved. Acute kidney injury on CKD stage III unclear subtype: Unclear etiology, Admission BUN/Cr 39/2.36, prior baseline creatinine noted to be 1.2-1.4 with last noted 01/11/2023 creatinine 1.4. Will hydrate, hold nephrotoxic medications and repeat chemistry in AM, FENa 0.54% (2) Failure to thrive: PLAN: Adult failure to thrive complicated by underlying dementia with worsening confusion/acute encephalopathy, metabolic with UMBERTO but potentially underlying infectious etiology of unclear specific origin, possibly viral gastroenteritis: We will admit to medical surgical floor, maintain on fall and aspiration precautions, will judiciously hydrate and hold nephrotoxic medication given acute kidney injury with repeat CMP in a.m., to be cautious given significant increase in recent COVID illness will obtain COVID PCR and if stool incontinence with liquid stool will obtain enteric as well as C. difficile to be cautious, PT/OT/case management consultation for discharge planning as patient currently residing by himself and certainly may need assisted versus skilled facility. (3) Leukocytosis: PLAN: Transient Leukocytosis, mild, unclear specific etiology: Patient does present with acute kidney injury possibly a component of dehydration, possibly reactive, urinalysis not marked appearing, chest x-ray with no overt evidence of any pneumonia and CT abdomen pelvis with no obvious findings in the lung bases, COVID PCR negative Cdiff negative. Enteric panel negative. (4) Enteritis: PLAN: Improved Possible on CT from 02/14. Other possibilities include ileus, SBO (5) Delirium: PLAN: Hyperactive, though currently stable. Complicated by pt's underlying dementia. Lactic and wanes but overall better today after he slept. Discussed with the patient's daughter granddaughter that this may be variable while the patient still in the hospital. Avoid potentiating medication discharging him on a routine sleep regimen PLAN: Plan Chronic stable conditions: * Dementia, unclear type with unclear behavioral disturbance history: We will continue patient home donepezil regimen, complicates presentation, * Chronic interstitial lung disease: Patient with history of ILD, CT A/P with visualized lung portions with evidence of pulmonary fibrotic change, known, as needed albuterol if needed, encourage continued outpatient follow-up with pulmonary medicine as previously arranged. * CAD: Status post revascularization therapy with PCI/CABG w/ CABG 119 VIZCARRA to the LAD and Y graft off the VIZCARRA to the diagonal and PCI 2010 circumflex, will continue aspirin, Plavix, statin, not on beta-cece therapy with history of bradycardia, holding RAVEN inhibitor given UMBERTO is noted. * Carotid disease, PAOD: s/p BL CEA, will continue aspirin, Plavix, statin, not on beta-cece therapy with history of bradycardia, holding RAVEN inhibitor given UMBERTO is noted. * Chart reported history rheumatoid arthritis, psoriatic arthritis: Not on regimen currently per list however in the past had been on methotrexate oral regimen weekly of note, encourage continued outpatient follow-up and assessment as needed. * Chart reported prediabetic history: Not on any medication, glucose appropriate range only mildly elevated to 120 upon current presentation, will obtain hemoglobin A1c to be cautious but defer Accu-Cheks with insulin sliding scale until this results. * Hypertension: We will temporally hold patient home lisinopril given UMBERTO, as ne eded IV hydralazine interim. * Hyperlipidemia: We will continue patient on statin therapy. * BPH: Status post prior TURP, will continue patient on Flomax/finasteride regimen. Patient also of note does have a history listed of urethral stricture. * Gout: We will continue patient on allopurinol regimen. * Allergic rhinitis: We will temporarily hold patient home loratadine regimen. DVT prophylaxis: Heparin. CODE status: DNRCCA, no intubation Disposition: TBD, to SNF pending insurance authorization. Charges/Coding Visit Charges Inpatient E&M: 14960 Subs Hosp L2
[2023-02-19] MEDS: Aspirin 81 MG TAB.CHEW PO (10:51)
[2023-02-19] MEDS: Allopurinol 300 MG Tablet PO (10:51)
[2023-02-19] MEDS: Finasteride 5 MG Tablet PO (10:51)
[2023-02-19] MEDS: Tamsulosin HCl 0.4 MG Capsule 0.400000000000000022 MG PO (10:51)
[2023-02-19] MEDS: Clopidogrel Bisulfate 75 MG Tablet PO (10:52)
[2023-02-19] MEDS: Heparin Injection (Vial) 5,000 UNIT/ML VIAL 5000 UNIT SC ×2 (10:52→21:22)
[2023-02-19 11:10] VITALS: BP 158/86; PULSE 71; RESP 16; TEMP 36.6; O2SAT 97
[2023-02-19] MEDS: Menthol/Lanolin/Calamine/Znox 113 GM Tube 1 APPLIC TOPICAL (13:25)
[2023-02-19] MEDS: Acetaminophen 325 MG Tablet 650 MG PO (13:27)
--- NOTE | 2023-02-19 16:26 | TREXTCAR_ITS ---
Diet Diet Order/Speech Therapy: 02/14/23 21:43 Diet: Cardiac - Heart Healthy Food consistency:: Regular Liquid Consistency:: Regular/Thin Is pt able to select menu?: No Routine Orders/Code Status Code Status: DNRCC-A (no intubation) Therapies Weight Bearing: Full weight bearing Physical Therapy: Eval and Treat Occupational Therapy: Eval and Treat Problem/Diagnosis (1) UMBERTO (acute kidney injury): Status: Acute Code(s): N17.9 - Acute kidney failure, unspecified Plan: Improving and resolved. Acute kidney injury on CKD stage III unclear subtype: Unclear etiology, Admission BUN/Cr 39/2.36, prior baseline creatinine noted to be 1.2-1.4 with last noted 01/11/2023 creatinine 1.4. Will hydrate, hold nephrotoxic medications and repeat chemistry in AM, FENa 0.54% (2) Failure to thrive: Status: Acute Plan: Adult failure to thrive complicated by underlying dementia with worsening confusion/acute encephalopathy, metabolic with UMBERTO but potentially underlying infectious etiology of unclear specific origin, possibly viral gastroenteritis: We will admit to medical surgical floor, maintain on fall and aspiration precautions, will judiciously hydrate and hold nephrotoxic medication given acute kidney injury with repeat CMP in a.m., to be cautious given significant increase in recent COVID illness will obtain COVID PCR and if stool incontinence with liquid stool will obtain enteric as well as C. difficile to be cautious, PT/OT/case management consultation for discharge planning as patient currently residing by himself and certainly may need assisted versus skilled facility. (3) Leukocytosis: Status: Acute Code(s): D72.829 - Elevated white blood cell count, unspecified Plan: Transient Leukocytosis, mild, unclear specific etiology: Patient does present with acute kidney injury possibly a component of dehydration, possibly reactive, urinalysis not marked appearing, chest x-ray with no overt evidence of any pneumonia and CT abdomen pelvis with no obvious findings in the lung bases, COVID PCR negative Cdiff negative. Enteric panel negative. (4) Enteritis: Status: Acute Code(s): K52.9 - Noninfective gastroenteritis and colitis, unspecified Plan: Improved Possible on CT from 02/14. Other possibilities include ileus, SBO (5) Delirium: Status: Acute Code(s): R41.0 - Disorientation, unspecified Plan: Hyperactive, though currently stable. Complicated by pt's underlying dementia. Lactic and wanes but overall better today after he slept. Discussed with the patient's daughter granddaughter that this may be variable while the patient still in the hospital. Avoid potentiating medication discharging him on a routine sleep regimen Plan Chronic stable conditions: * Dementia, unclear type with unclear behavioral disturbance history: We will continue patient home donepezil regimen, complicates presentation, * Chronic interstitial lung disease: Patient with history of ILD, CT A/P with visualized lung portions with evidence of pulmonary fibrotic change, known, as needed albuterol if needed, encourage continued outpatient follow-up with pulmonary medicine as previously arranged. * CAD: Status post revascularization therapy with PCI/CABG w/ CABG 119 VIZCARRA to the LAD and Y graft off the VIZCARRA to the diagonal and PCI 2010 circumflex, will continue aspirin, Plavix, statin, not on beta-cece therapy with history of bradycardia, holding RAVEN inhibitor given UMBERTO is noted. * Carotid disease, PAOD: s/p BL CEA, will continue aspirin, Plavix, statin, not on beta-cece therapy with history of bradycardia, holding RAVEN inhibitor given UMBERTO is noted. * Chart reported history rheumatoid arthritis, psoriatic arthritis: Not on regimen currently per list however in the past had been on methotrexate oral regimen weekly of note, encourage continued outpatient follow-up and assessment as needed. * Chart reported prediabetic history: Not on any medication, glucose appropriate range only mildly elevated to 120 upon current presentation, will obtain hemoglobin A1c to be cautious but defer Accu-Cheks with insulin sliding scale until this results. * Hypertension: We will temporally hold patient home lisinopril given UMBERTO, as needed IV hydralazine interim. * Hyperlipidemia: We will continue patient on statin therapy. * BPH: Status post prior TURP, will continue patient on Flomax/finasteride regimen. Patient also of note does have a history listed of urethral strictu re. * Gout: We will continue patient on allopurinol regimen. * Allergic rhinitis: We will temporarily hold patient home loratadine regimen. DVT prophylaxis: Heparin. CODE status: DNRCCA, no intubation Disposition: TBD, to SNF pending insurance authorization. Allergies/Procedures Done in Hospital Allergies cat dander [cats] Allergy (Verified 02/14/23 17:54) Rash hyoscyamine [Hyoscyamine] Allergy (Verified 02/14/23 17:54) Other metronidazole Allergy (Verified 02/14/23 17:54) Unknown Seasonal Allergies: Uncoded [environmental] Allergy (Verified 02/14/23 17:54) PT UNSURE OF REACTION sesame oil Allergy (Verified 02/14/23 17:54) Other Sulfa (Sulfonamide Antibiotics) Allergy (Verified 02/14/23 17:54) Other sulfamethoxazole [From Bactrim] Allergy (Verified 02/14/23 17:54) Other tree nut [Tree Nut] Allergy (Verified 02/14/23 17:54) Other trimethoprim [From Bactrim] Allergy (Verified 02/14/23 17:54) Other Procedures: None Type of Care/Length of Stay Estimated LOS: Convalescent Care Less Than 30 days Type of Care Needed: Intermediate Rehab Potential: Fair Prognosis: Good Additional Orders/Day of Discharge Day of Discharge: 02/19/23 Dietary and Speech Recommendations Dietitian Recommendations/Changes: Will continue Cardiac diet as ordered - add CHO Control restriction if gluc elevated Consider ONS if po intake worsens. Discharge Plan Admission Admit Date/Time: 02/14/23 20:21 Primary Reason for Your Visit: acute kidney injury Attending Provider: Vitor Oliver Primary Care Provider: Jason Snider Consulting Providers: Milady Crabtree Discharge Orders/Prescriptions Prescriptions: New acetaminophen 325 mg Tablet 650 mg PO Q4H PRN PRN (Reason: Fever, pain 1-10/10) Qty: 0 0RF trazodone 50 mg Tablet 50 mg PO QHS Qty: 0 0RF Continued nitroglycerin 0.4 mg tablet, sublingual 0.4 mg SUBLINGUAL Q5M PRN (Reason: Chest Pain) Qty: 25 3RF pravastatin 40 mg tablet 40 mg PO QHS ofloxacin 0.3 % drops See Rx Instructions ophthalmic (eye) .COMPLEX Rx Instructions: put 1-2 drps into affected eye(s) every 2-4 h x 2 days, then 1-2 drps 4 times/day days 3-7 ophthalmic (eye) triamcinolone acetonide 0.1 % ointment 1 applic topical DAILY vitamins A,C,A-dixw-fdzzou 7,160 unit- 113 mg-100 unit tablet 1 tab PO ONCE Rx Instructions: administer with AM and PM meals allopurinol 300 MG tablet 300 mg PO DAILY Label Comments: GOUT clopidogrel 75 MG tablet 75 mg PO DAILY Label Comments: ANTIPLATELET aspirin 81 MG tablet,chewable 81 mg PO DAILY@0800 Label Comments: BLOOD THINNER/HEART loratadine 10 MG tablet 10 mg PO DAILY Label Comments: ALLERGIES omega-3 fatty acids-fish oil 1 EACH capsule 1 ea PO DAILY Label Comments: SUPPLEMENT multivitamin with folic acid 1 TABLET tablet 1 tab PO DAILY Label Comments: VITAMIN lisinopril 20 mg tablet 10 mg PO DAILY Label Comments: BLOOD PRESSURE levothyroxine 150 mcg tablet 175 mcg PO DAILY Label Comments: THYROID polyethylene glycol 3350 17 GM packet 17 g PO DAILY PRN (Reason: Constipation) donepezil 10 MG tablet 10 mg PO QHS vit A,C and J-latvyc-ddlejfca 1 EACH tablet 1 ea PO DAILY tamsulosin 0.4 MG capsule 0.4 mg PO DAILY finasteride 5 MG tablet 5 mg PO DAILY Discontinued gabapentin 300 mg capsule 100 mg PO DAILY Label Comments: NERVE PAIN Referrals / Follow Up: Jason Snider MD [Primary Care Provider] - Within 2 Weeks Disposition Disposition (needs filled in before D/C Order can be placed): [facility]
--- NOTE | 2023-02-19 16:33 | DS.PCM_ITS ---
Providers Date of Admission: 02/14/23 Primary Care Physician: Dr. Jason Snider MD Reason For Visit: UMBERTO, ADULT FTT Diagnosis Discharge Diagnosis (1) UMBERTO (acute kidney injury): Status: Acute Code(s): N17.9 - Acute kidney failure, unspecified Plan: Improving and resolved. Acute kidney injury on CKD stage III unclear subtype: Unclear etiology, Admission BUN/Cr 39/2.36, prior baseline creatinine noted to be 1.2-1.4 with last noted 01/11/2023 creatinine 1.4. Will hydrate, hold nephrotoxic medications and repeat chemistry in AM, FENa 0.54% (2) Failure to thrive: Status: Acute Plan: Adult failure to thrive complicated by underlying dementia with worsening confusion/acute encephalopathy, metabolic with UMBERTO but potentially underlying infectious etiology of unclear specific origin, possibly viral gastroenteritis: We will admit to medical surgical floor, maintain on fall and aspiration pre cautions, will judiciously hydrate and hold nephrotoxic medication given acute kidney injury with repeat CMP in a.m., to be cautious given significant increase in recent COVID illness will obtain COVID PCR and if stool incontinence with liquid stool will obtain enteric as well as C. difficile to be cautious, PT/OT/case management consultation for discharge planning as patient currently residing by himself and certainly may need assisted versus skilled facility. (3) Leukocytosis: Status: Acute Code(s): D72.829 - Elevated white blood cell count, unspecified Plan: Transient Leukocytosis, mild, unclear specific etiology: Patient does present with acute kidney injury possibly a component of dehydration, possibly reactive, urinalysis not marked appearing, chest x-ray with no overt evidence of any pneumonia and CT abdomen pelvis with no obvious findings in the lung bases, COVID PCR negative Cdiff negative. Enteric panel negative. (4) Enteritis: Status: Acute Code(s): K52.9 - Noninfective gastroenteritis and colitis, unspecified Plan: Improved Possible on CT from 02/14. Other possibilities include ileus, SBO (5) Delirium: Status: Acute Code(s): R41.0 - Disorientation, unspecified Plan: Hyperactive, though currently stable. Complicated by pt's underlying dementia. Lactic and wanes but overall better today after he slept. Discussed with the patient's daughter granddaughter that this may be variable while the patient still in the hospital. Avoid potentiating medication discharging him on a routine sleep regimen Plan Chronic stable conditions: * Dementia, unclear type with unclear behavioral disturbance history: We will continue patient home donepezil regimen, complicates presentation, * Chronic interstitial lung disease: Patient with history of ILD, CT A/P with visualized lung portions with evidence of pulmonary fibrotic change, known, as needed albuterol if needed, encourage continued outpatient follow-up with pulmonary medicine as previously arranged. * CAD: Status post revascularization therapy with PCI/CABG w/ CABG 119 VIZCARRA to the LAD and Y graft off the VIZCARRA to the diagonal and PCI 2011 circumflex, will continue aspirin, Plavix, statin, not on beta-cece therapy with history of bradycardia, holding RAVEN inhibitor given UMBERTO is noted. * Carotid disease, PAOD: s/p BL CEA, will continue aspirin, Plavix, statin, not on beta-cece therapy with history of bradycardia, holding RAVEN inhibitor given UMBERTO is noted. * Chart reported history rheumatoid arthritis, psoriatic arthritis: Not on regimen currently per list however in the past had been on methotrexate oral regimen weekly of note, encourage continued outpatient follow-up and assessment as needed. * Chart reported prediabetic history: Not on any medication, glucose appropriate range only mildly elevated to 120 upon current presentation, will obtain hemoglobin A1c to be cautious but defer Accu-Cheks with insulin sliding scale until this results. * Hypertension: We will temporally hold patient home lisinopril given UMBERTO, as needed IV hydralazine interim. * Hyperlipidemia: We will continue patient on statin therapy. * BPH: Status post prior TURP, will continue patient on Flomax/finasteride regimen. Patient also of note does have a history listed of urethral stricture. * Gout: We will continue patient on allopurinol regimen. * Allergic rhinitis: We will temporarily hold patient home loratadine regimen. DVT prophylaxis: Heparin. CODE status: DNRCCA, no intubation Disposition: TBD, to SNF pending insurance authorization. Medications at Discharge Home Medications allopurinol 300 mg tablet 300 mg PO DAILY GOUT 04/30/14 aspirin 81 mg chewable tablet 81 mg PO DAILY@0800 HEART 04/30/14 clopidogrel 75 mg tablet 75 mg PO DAILY ANTIPLATLET 04/30/14 loratadine 10 mg tablet 10 mg PO DAILY ALLGIES 04/30/14 multivitamin with folic acid 400 mcg tablet 1 tab PO DAILY SUPPLEMENT 04/30/14 omega-3 fatty acids-fish oil 340 mg-1,000 mg capsule 1 ea PO DAILY SUPPLEMENT 04/30/14 donepezil 10 mg tablet 10 mg PO QHS MEMORY 02/17/18 polyethylene glycol 3350 17 gram oral powder packet 17 g PO DAILY PRN Constipation 02/17/18 vit A 300 mcg-C 200 mg-E 27 mg-lutein 2 mg and minerals tablet 1 ea PO DAILY SUPPLEMENT 02/17/18 lisinopril 20 mg tablet 10 mg PO DAILY BLOOD PRESSURE 03/15/18 finasteride 5 mg tablet 5 mg PO DAILY urination 01/24/20 tamsulosin 0.4 mg capsule 0.4 mg PO DAILY urination 01/24/20 nitroglycerin 0.4 mg sublingual tablet 0.4 mg sublingual Q5M PRN Chest Pain #25 tabs 01/13/21 pravastatin 40 mg tablet 40 mg PO QHS Check with primary doctor 09/22/21 ofloxacin 0.3 % eye drops See Rx Instructions ophthalmic (eye) .COMPLEX 03/11/22 triamcinolone acetonide 0.1 % topical ointment 1 applic topical DAILY 03/11/22 vitamins A,C,V-rjgo-wbxqmy 2,148 mcg-113 mg-45 mg-17.4 mg tablet 1 tab PO ONCE 03/11/22 levothyroxine 150 mcg tablet 175 mcg PO DAILY thyroid 09/09/22 acetaminophen 325 mg tablet 650 mg PO Q4H PRN PRN Fever, pain 1-08/31 #0 tabs 02/19/23 trazodone 50 mg tablet 50 mg PO QHS #0 tabs 02/19/23 Hospital Course Operations None Summary of Care Provided Minutes Spent on Discharge: 32 Hospital Course: This is a 87-year-old male presents with weakness. Patient found have acute kidney injury as well as failure to thrive. Creatinine is found to be 2.36 upon arrival. Patient did receive IV fluids as well as lisinopril was held. Creatinine went down to 1.35. Patient did have abdominal pain did have a CAT scan was concerning for enteritis but the following day it appeared to be resolved. From medical standpoint patient remained stable, however, from a b ehavior standpoint patient combative confrontational irritable amongst many other things. Patient had been up a week for roughly 48 hours which only compounded that. Patient did receive some trazodone as well as Vistaril in the evening seem to help him maintain his variable behaviors. Patient was seen by therapy and there is concern about patient going home on his own but he actually did fairly well with therapy, however, given his dementia and concern for him that actually take care of himself, patient will be going private pay. Patient is stable. Weight / BMI Weight Weight: 83.9 kg Body Mass Index (BMI) 24.5 ABG / Lab / Microbiology Data Result Diagrams: 02/16/23 06:54 02/16/23 06:54 Microbiology: Microbiology 02/19/23 15:13 Nasal Secretion SARS-CoV-2 Antigen (Rapid) - Final 02/15/23 07:33 Stool C. difficile DNA Amplification - Final 02/15/23 09:10 Stool Enteric Bacteriology - Final 02/14/23 18:28 Nasal Secretion SARS-CoV-2 & FLU Antigen (Rapid) - Final Meaningful Use Info Meaningful Use Diagnoses (Choose all that apply): None applicable Discharge Plan Admission Admit Date/Time: 02/14/23 20:21 Primary Reason for Your Visit: acute kidney injury Attending Provider: Vitor Oliver Primary Care Provider: Jason Snider Consulting Providers: Milady Crabtree Discharge Orders/Prescriptions Prescriptions: New acetaminophen 325 mg Tablet 650 mg PO Q4H PRN PRN (Reason: Fever, pain 1-1010) Qty: 0 0RF trazodone 50 mg Tablet 50 mg PO QHS Qty: 0 0RF Continued nitroglycerin 0.4 mg tablet, sublingual 0.4 mg SUBLINGUAL Q5M PRN (Reason: Chest Pain) Qty: 25 3RF pravastatin 40 mg tablet 40 mg PO QHS ofloxacin 0.3 % drops See Rx Instructions ophthalmic (eye) .COMPLEX Rx Instructions: put 1-2 drps into affected eye(s) every 2-4 h x 2 days, then 1-2 drps 4 times/day days 3-7 ophthalmic (eye) triamcinolone acetonide 0.1 % ointment 1 applic topical DAILY vitamins A,C,X-zofm-llqdas 7,160 unit- 113 mg-100 unit tablet 1 tab PO ONCE Rx Instructions: administer with AM and PM meals allopurinol 300 MG tablet 300 mg PO DAILY Label Comments: GOUT clopidogrel 75 MG tablet 75 mg PO DAILY Label Comments: ANTIPLATELET aspirin 81 MG tablet,chewable 81 mg PO DAILY@0800 Label Comments: BLOOD THINNER/HEART loratadine 10 MG tablet 10 mg PO DAILY Label Comments: ALLERGIES omega-3 fatty acids-fish oil 1 EACH capsule 1 ea PO DAILY Label Comments: SUPPLEMENT multivitamin with folic acid 1 TABLET tablet 1 tab PO DAILY Label Comments: VITAMIN lisinopril 20 mg tablet 10 mg PO DAILY Label Comments: BLOOD PRESSURE levothyroxine 150 mcg tablet 175 mcg PO DAILY Label Comments: THYROID polyethylene glycol 3350 17 GM packet 17 g PO DAILY PRN (Reason: Constipation) donepezil 10 MG tablet 10 mg PO QHS vit A,C and J-oyafsw-blupmiup 1 EACH tablet 1 ea PO DAILY tamsulosin 0.4 MG capsule 0.4 mg PO DAILY finasteride 5 MG tablet 5 mg PO DAILY Discontinued gabapentin 300 mg capsule 100 mg PO DAILY Label Comments: NERVE PAIN Referrals / Follow Up: Jason Snider MD [Primary Care Provider] - Within 2 Weeks Disposition Disposition (needs filled in before D/C Order can be placed): Care Home Facility Charges/Coding Visit Charges Inpatient E&M: 50374 Disch Hosp >30min
--- NOTE | 2023-02-19 17:15 | CASEMGMT ---
Social Work Pt has been denied by insurance. Peer to Peer offered however physician does not feel this is necessitated at this time. Pt dgt updated and plans for pt to go to [facility] private pay. Physician updated and pt is ready for discharge today. 7000 exemption form completed in [facility] and sent along with discharge orders and covid results to [facility] via care port. Transportation arranged with Physicians for 7pm diamond picker via cot. SW updated pt and dgt Jose David and both agreeable. Nursing and [facility] notified of time of discharge. Plan: [facility], intermediate level of care ARUN Mendosa
[2023-02-19 18:00] VITALS: BP 136/82; PULSE 70; RESP 18; TEMP 36.7; O2SAT 136
--- NOTE | 2023-02-19 18:30 | NURSING ---
report called to [facility] spoke with Kiersten valerio
[2023-02-19 21:11] VITALS: BP 121/55; PULSE 64; RESP 18; TEMP 36.9; O2SAT 92
[2023-02-19] MEDS: Pravastatin 40 MG Tablet PO (21:21)
[2023-02-19] MEDS: Donepezil HCl 10 MG Tablet PO (21:21)
[2023-02-19] MEDS: traZODone 50 MG Tablet PO (21:21)
== END 2023-02-19 23:45 | disposition skilled nursing facility (03) | DRG 391 ==
LOC: ED 18:21 → MS3 21:09
PROVIDERS: Admitting Provider Family Medicine; Emergency Provider Student in an Organized Health Care Education/Training Program; PCP Internal Medicine
DX: K52.9 Noninfective gastroenteritis and colitis, unspecified (principal); G93.41 Metabolic encephalopathy; K56.7 Ileus, unspecified; F03.90 Unspecified dementia, unspecified severity, without behavioral disturbance, psychotic disturbance, mood disturbance, and anxiety; N18.30 Chronic kidney disease, stage 3 unspecified; I65.29 Occlusion and stenosis of unspecified carotid artery; I12.9 Hypertensive chronic kidney disease with stage 1 through stage 4 chronic kidney disease, or unspecified chronic kidney disease; I25.10 Atherosclerotic heart disease of native coronary artery without angina pectoris; J30.9 Allergic rhinitis, unspecified; E78.5 Hyperlipidemia, unspecified; R62.7 Adult failure to thrive; Z79.02 Long term (current) use of antithrombotics/antiplatelets; Z95.5 Presence of coronary angioplasty implant and graft; Z79.82 Long term (current) use of aspirin; Z66 Do not resuscitate; N40.0 Benign prostatic hyperplasia without lower urinary tract symptoms
CPT/HCPCS: 36415; 70450; 71045; 74176; 80048; 80053; 81001; 82570; 82962; 83036; 83735; 84100; 84300; 84484; 85025; 87426; 87428; 87493; 87506; 87635; 97110; 97116; 97162; 97166; 97530; 97535; 99284; J7030; A4216; U0003; U0005

== ENCOUNTER → 2023-02-22 | Outpatient (REF) | payer MEDICARE, SELFPAY ==
[2023-02-22 08:28] LABS: Absolute Lymphocyte Count 1.46 X10^3/uL (0.83-4.51); Absolute Neutrophil Count 4.7 X10^3/uL (2.0-7.7); Basophil# 0.08 X10^3/uL; Basophil% 1.1 % (0-1); Eosinophil# 0.46 X10^3/uL; Eosinophils% 6.2 % (0-5); Hematocrit 39.4 % (40-54); Hemoglobin 12.7 g/dL (13.0-16.5); Lymphocyte # 1.46 X10^3/ul (0.83-4.51); Lymphocyte % 19.7 % (19-41); Mean Corp Hgb Conc 32.2 g/dL (32-36); Mean Corpuscular Hgb 30.5 pg (27.0-32.0); Mean Corpuscular Volume 94.5 fL (80-94); Mean Platelet Vol. 9.4 fl (6.2-12.0); Monocyte# 0.72 X10^3/uL; Monocyte% 9.7 % (0-10); NRBC Flagged by Analyzer 0 % (0-5); Neutrophil # 4.66 X10^3/uL (2.7-7.7); Neutrophil % 62.9 % (47-70); Platelet Count 253 K/mm3 (150-450); RBC Distribution Width CV 13.8 % (11.6-14.6); RBC Distribution Width SD 47.3 fl (35.1-43.9); Red Blood Count 4.17 M/mm3 (4.6-6.2); White Blood Count 7.4 K/mm3 (4.4-11.0)
[2023-02-22 08:49] LABS: ALB/GLOB Ratio 0.9 RATIO (0.9-2.4); AST(SGOT) 35 U/L (15-37); Alanine Aminotransfer ALT/SGPT 40 U/L (16-61); Alkaline Phosphatase 65 U/L (45-117); Anion Gap 3 (5-15); BUN 25 mg/dL (7-18); Calcium,Total 9.8 mg/dL (8.5-10.1); Chloride 106 mmol/L (98-107); Creatinine, Serum 1.39 mg/dL (0.70-1.30); EST Glomerular Filtration Rate 51 mL/min (>60); Est Glom Filt Rate - Afr Amer 62 mL/min (>60); Globulin 3.4 g/dL (2.2-4.2); Glucose 96 mg/dL (74-106); Potassium 3.7 mmol/L (3.5-5.1); Protein, Total 6.4 g/dL (6.4-8.2); Sodium Level 138 mmol/L (136-145); Thyroid Stim Hormone (TSH) 8.59 uIU/mL (0.358-3.74)
== END ==
LOC: OLS.WHLTCC 05:00
PROVIDERS: PCP Internal Medicine; Visit Provider Internal Medicine
DX: E03.9 Hypothyroidism, unspecified (principal); G93.41 Metabolic encephalopathy; N17.9 Acute kidney failure, unspecified; F05 Delirium due to known physiological condition; K52.9 Noninfective gastroenteritis and colitis, unspecified; M62.81 Muscle weakness (generalized)
CPT/HCPCS: 36415; 80053; 84443; 85025

== ENCOUNTER → 2023-03-08 | Outpatient (REF) | payer MEDICARE, SELFPAY ==
[2023-03-08 07:55] LABS: Absolute Lymphocyte Count 1.67 X10^3/uL (0.83-4.51); Absolute Neutrophil Count 4.5 X10^3/uL (2.0-7.7); Basophil# 0.05 X10^3/uL; Basophil% 0.6 % (0-1); Eosinophil# 0.45 X10^3/uL; Eosinophils% 5.8 % (0-5); Hematocrit 40.1 % (40-54); Hemoglobin 12.5 g/dL (13.0-16.5); Lymphocyte # 1.67 X10^3/ul (0.83-4.51); Lymphocyte % 21.6 % (19-41); Mean Corp Hgb Conc 31.2 g/dL (32-36); Mean Corpuscular Volume 96.4 fL (80-94); Mean Platelet Vol. 10.1 fl (6.2-12.0); Monocyte# 1.04 X10^3/uL; Monocyte% 13.5 % (0-10); NRBC Flagged by Analyzer 0 % (0-5); Neutrophil % 58.2 % (47-70); Platelet Count 224 K/mm3 (150-450); RBC Distribution Width CV 13.5 % (11.6-14.6); RBC Distribution Width SD 47.8 fl (35.1-43.9); Red Blood Count 4.16 M/mm3 (4.6-6.2); White Blood Count 7.7 K/mm3 (4.4-11.0)
[2023-03-08 08:18] LABS: Anion Gap 5 (5-15); BUN 44 mg/dL (7-18); BUN/Creat Ratio 23.9 RATIO (10-20); Calcium,Total 9.9 mg/dL (8.5-10.1); Chloride 108 mmol/L (98-107); Creatinine, Serum 1.84 mg/dL (0.70-1.30); EST Glomerular Filtration Rate 37 mL/min (>60); Est Glom Filt Rate - Afr Amer 45 mL/min (>60); Glucose 98 mg/dL (74-106); Sodium Level 140 mmol/L (136-145)
== END ==
LOC: OLS.WHLTCC 05:00
PROVIDERS: PCP Internal Medicine; Visit Provider Internal Medicine
DX: R62.7 Adult failure to thrive (principal); G93.41 Metabolic encephalopathy; N17.9 Acute kidney failure, unspecified; F05 Delirium due to known physiological condition; K52.9 Noninfective gastroenteritis and colitis, unspecified; M62.81 Muscle weakness (generalized)
CPT/HCPCS: 36415; 80048; 85025

== ENCOUNTER 2023-03-16 21:09 | Inpatient (IN) | payer MEDICARE, SELFPAY ==
[2023-03-16 21:12] VITALS: BP 141/70; PULSE 95; RESP 14; TEMP 36.6; O2SAT 98; BMI 22.8
[2023-03-16 22:09] VITALS: BP 148/70; PULSE 80; RESP 16; O2SAT 97
[2023-03-16] MEDS: 0.9% Normal Saline 1,000 ML 999 ML IV (22:38)
[2023-03-16 22:39] LABS: Absolute Lymphocyte Count 1.06 X10^3/uL (0.83-4.51); Absolute Neutrophil Count 16.6 X10^3/uL (2.0-7.7); Basophil# 0.04 X10^3/uL; Basophil% 0.2 % (0-1); Eosinophil# 0.01 X10^3/uL; Eosinophils% 0.1 % (0-5); Hematocrit 40.8 % (40-54); Hemoglobin 13.5 g/dL (13.0-16.5); Lymphocyte # 1.06 X10^3/ul (0.83-4.51); Lymphocyte % 5.4 % (19-41); Mean Corp Hgb Conc 33.1 g/dL (32-36); Mean Corpuscular Hgb 30.5 pg (27.0-32.0); Mean Corpuscular Volume 92.3 fL (80-94); Mean Platelet Vol. 10.3 fl (6.2-12.0); Monocyte# 1.84 X10^3/uL; Monocyte% 9.4 % (0-10); NRBC Flagged by Analyzer 0 % (0-5); Neutrophil # 16.55 X10^3/uL (2.7-7.7); Neutrophil % 84.4 % (47-70); POSITIVE DIFFERENTIAL YES; Platelet Count 187 K/mm3 (150-450); RBC Distribution Width CV 13.6 % (11.6-14.6); RBC Distribution Width SD 45.9 fl (35.1-43.9); Red Blood Count 4.42 M/mm3 (4.6-6.2); White Blood Count 19.6 K/mm3 (4.4-11.0)
[2023-03-16 22:47] LABS: Differential Indicated SCAN CRITERIA MET
--- NOTE | 2023-03-16 22:49 | CT_ITS ---
EXAM: CT abdomen and pelvis without contrast HISTORY: abd pain TECHNIQUE: No intravenous contrast. A radiation dose optimization technique was used for this scan. COMPARISON: CT abdomen and pelvis February 14, 2023. LIMITATIONS: Motion artifact.. LOWER CHEST: Elevation of the right hemidiaphragm. Calcified pleural plaques at the left lung base. Chronic interstitial lung disease with honeycombing, especially in the right lung base. LIVER: Calcified granulomata. GALLBLADDER: Moderate distention. No inflammatory change. BILE DUCTS: Normal. PANCREAS: Normal. SPLEEN: Calcified granulomata. ADRENAL GLANDS: Normal. KIDNEYS/URETERS/BLADDER: Cyst in the right kidney. No obstructing ureteral stones or hydronephrosis. Distention of the bladder. Hyperdensity at the posterior aspect of the bladder may be artifactual. AORTA: Normal caliber. Atherosclerotic calcification of the abdominal aorta. BOWEL/MESENTERY: A moderate to large amount of stool is in the rectum, new since the prior exam. Perirectal and presacral fat stranding/ill-defined fluid is similar to the prior study. No definite wall thickening of the colon. No small bowel obstruction. APPENDIX: Normal. PERITONEUM: Normal. REPRODUCTIVE ORGANS: Suspected TURP defect in the prostate gland. BONES/SOFT TISSUES: No acute fracture. Degenerative changes of the spine. OTHER: None. CONCLUSION: Evidence of rectal fecal impaction. Perirectal and presacral fat stranding raises the possibility of stercoral proctitis. Disimpaction is recommended. Moderate distention of the urinary bladder. Layering hyperdensity at the posterior aspect of the bladder is most likely due to streak artifact. Hematuria is an additional consideration. Correlate with urinalysis. Electronically Signed: Aguila Pires MD at 0:44 EDT , CT/Abdomen/Pelvis without Cont IMPRESSION: undefined
--- NOTE | 2023-03-16 23:03 | EX.ED.DYSGE1 ---
HPI History of Present Illness Chief Complaint: Weakness Narrative Narrative: Patient is a 87-year-old male from the [place] who was sent in secondary to failure to thrive. Patient has a history of dementia hypertension CAD and osteomyelitis requiring amputation of the third fourth and fifth digit of his right foot. Based on the patient's dementia he cannot offer any further history. [facility] reports that he has been having poor oral intake with lack of eating and drinking for the past 2 days and today seem to be complaining of abdominal pain. Reportedly the correction had a hypotensive blood pressure today accompanying the symptoms and secondary to this was sent to the hospital for evaluation The patient is a DNR Com[facility] Care arrest no intubation [facility] Medical History Anal stenosis ANCA-positive vasculitis Atherosclerotic heart disease of [place] coronary artery without angina pectoris Benign essential HTN BPH (benign prostatic hyperplasia) Carotid artery disease Chronic gout Esophageal reflux Fatigue Hemorrhage of rectum and anus Hypothyroidism Internal hemorrhoids Interstitial lung disease Mild cognitive disorder Occlusion and stenosis of unspecified carotid artery OM (osteomyelitis) Osteomyelitis Peripheral arterial occlusive disease Prediabetes Presence of permanent cardiac pacemaker (~09/22/19) Presence of stent in coronary artery (~01/28/11) Psoriasis Pulmonary hypertension Pure hypercholesterolemia Rheumatoid arthritis Sinus bradycardia Traction bronchiectasis Urethral stricture Home Medications allopurinol 300 mg tablet 300 mg PO DAILY GOUT 04/30/14 [History Last Taken 02/17/18] aspirin 81 mg chewable tablet 81 mg PO DAILY@0800 HEART 04/30/14 [History Last Taken 02/17/18] clopidogrel 75 mg tablet 75 mg PO DAILY ANTIPLATLET 04/30/14 [History Last Taken 02/17/18] loratadine 10 mg tablet 10 mg PO DAILY ALLGIES 04/30/14 [History Last Taken 02/17/18] multivitamin with folic acid 400 mcg tablet 1 tab PO DAILY SUPPLEMENT 04/30/14 [History Last Taken 02/17/18] omega-3 fatty acids-fish oil 340 mg-1,000 mg capsule 1 ea PO DAILY SUPPLEMENT 04/30/14 [History Last Taken 02/17/18] donepezil 10 mg tablet 10 mg PO QHS MEMORY 02/17/18 [History Last Taken 02/16/18] polyethylene glycol 3350 17 gram oral powder packet 17 g PO DAILY PRN Constipation 02/17/18 [History Last Taken Unknown] vit A 300 mcg-C 200 mg-E 27 mg-lutein 2 mg and minerals tablet 1 ea PO DAILY SUPPLEMENT 02/17/18 [History Last Taken 02/17/18] lisinopril 20 mg tablet 10 mg PO DAILY BLOOD PRESSURE 03/15/18 [History Last Taken Unknown] finasteride 5 mg tablet 5 mg PO DAILY urination 01/24/20 [History Last Taken Unknown] tamsulosin 0.4 mg capsule 0.4 mg PO DAILY urination 01/24/20 [History Last Taken Unknown] nitroglycerin 0.4 mg sublingual tablet 0.4 mg sublingual Q5M PRN Chest Pain #25 tabs 01/13/21 [Rx Last Taken Unknown] pravastatin 40 mg tablet 40 mg PO QHS Check with primary doctor 09/22/21 [History Last Taken Unknown] ofloxacin 0.3 % eye drops See Rx Instructions ophthalmic (eye) .COMPLEX 03/11/22 [History Last Taken Unknown] vitamins A,C,J-zxcy-pyrftu 2,148 mcg-113 mg-45 mg-17.4 mg tablet 1 tab PO ONCE 03/11/22 [History Last Taken Unknown] levothyroxine 150 mcg tablet 200 mcg PO DAILY thyroid 09/09/22 [History Last Taken Unknown] acetaminophen 325 mg tablet 650 mg PO Q4H PRN PRN Fever, pain 1-08/31 #0 tabs 02/19/23 [Rx Last Taken Unknown] trazodone 50 mg tablet 50 mg PO QHS #0 tabs 02/19/23 [Rx Last Taken Unknown] atorvastatin 10 mg tablet 10 mg PO QHS 03/17/23 [History Last Taken Unknown] mirtazapine 7.5 mg tablet 7.5 mg PO QHS 03/17/23 [History Last Taken Unknown] pantoprazole 40 mg tablet,delayed release (Protonix) 40 mg PO BID 03/17/23 [History Last Taken Unknown] Allergy/AdvReac Type Severity Reaction Status Date / Time cat dander [cats] Allergy Rash Verified 03/16/23 21:12 hyoscyamine [Hyoscyamine] Allergy Other Verified 03/16/23 21:12 metronidazole Allergy Unknown Verified 03/16/23 21:12 Seasonal Allergies: Uncoded Allergy PT UNSURE Verified 03/16/23 21:12 [environmental] OF REACTION sesame oil Allergy Other Verified 03/16/23 21:12 Sulfa (Sulfonamide Allergy Other Verified 03/16/23 21:12 Antibiotics) sulfamethoxazole Allergy Other Verified 03/16/23 21:12 [From Bactrim] tree nut [Tree Nut] Allergy Other Verified 03/16/23 21:12 trimethoprim [From Bactrim] Allergy Other Verified 03/16/23 21:12 Family History Father Heart disease Diabetes Mother Hypertension Prediabetes Surgical History History of amputation of lesser toe History of bunionectomy of right great toe History of cardiac catheterization History of cataract surgery History of coronary artery bypass surgery (~06/11/97) History of hemorrhoidectomy History of knee surgery History of left-sided carotid endarterectomy (~1997) History of prostatectomy History of right-sided carotid endarterectomy (~05/04/14) History of tonsillectomy History of transurethral resection of prostate History of vasectomy Hx of colonoscopy Presence of coronary angioplasty implant and graft (~01/28/11) Social History household members: none Smoking Status: Never smoker second hand exposure: No alcohol intake: never substance use type: does not use caffeine: Yes Type: carbonated beverages Number of servings: 2 what type of physical activity do you participate in: walking frequency: daily duration: 45-60 minutes/day seatbelt use: always ROS ROS ED ROS Narrative Please note review of systems cannot be obtained based on patient's history of dementia Review of Systems ROS Unobtainable: due to mental status EXAM Physical Exam Const Vital Signs: 03/16/23 21:12 03/16/23 22:09 03/16/23 23:47 Temperature 98 F Temperature Source Temporal Pulse Rate 95 80 86 Respiratory Rate 14 16 20 H Blood Pressure 141/70 H 148/70 H 149/100 H Blood Pressure Mean 93 96 116 Pulse Ox 98 97 Oxygen Delivery Method Room Air Room Air Oxygen Flow Rate (L/min) 03/16/23 23:51 03/16/23 23:51 03/17/23 00:49 Temperature Temperature Source Pulse Rate 95 Respiratory Rate 18 Blood Pressure 114/56 L Blood Pressure Mean 75 Pulse Ox 78 96 93 Oxygen Delivery Method Room Air Nasal Cannula Room Air Oxygen Flow Rate (L/min) 2 03/17/23 01:11 03/17/23 01:16 03/17/23 02:17 Temperature 100.3 F H 100.3 F H 99.7 F H Temperature Source Core Core Core Pulse Rate 88 87 84 Respiratory Rate 18 18 20 H Blood Pressure 76/46 L 76/46 L 120/58 L Blood Pressure Mean 56 56 78 Pulse Ox 98 98 96 Oxygen Delivery Method Nasal Cannula Nasal Cannula Room Air Oxygen Flow Rate (L/min) 2 2 Positive well nourished and well developed General Appearance ED: well developed HEENT Reports dry mucous membranes HEENT Narrative: Mucous membranes are dry and tacky without oral lesions airway edema or compromise or signs of infection in the posterior pharynx Mouth ED: Yes dry mucous membranes Mouth: dry mucous membranes Eyes PERRL and EOMs intact bilaterally General Eye ED: Negative for scleral icterus Neck supple Neck Narrative: No nuchal rigidity or meningeal signs noted Chest Wall palpation of chest normal Chest Narrative: No bony deformity or crepitance Resp normal respiratory effort and clear to auscultation bilaterally Resp Narrative: Breath sounds are diminished throughout but overall clear to auscultation with no signs of distress Cardio regular rate and regular rhythm Rate: other Other Details: Radial pulses are +2-4 bilaterally are equal and symmetric GI non-distended GI Narrative: Abdomen is soft and nondistended with normal active bowel sounds. There is pain with palpation across the lower abdomen diffusely but greatest in the suprapubic region. However there is no organomegaly no rigidity no guarding no fluid wave or pulsatile mass Auscultation: normoactive bowel sounds Palpation: soft Narrative: Normal uncircumcised male without blood or discharge from the urethral meatus. No testicular swelling or lesions noted. No secondary changes in the inguinal region to suggest Siddharth's gangrene. Extremity Extremity Narrative: Patient has amputation of his right third through fifth toes consistent with history of osteomyelitis. However otherwise the extremities are neurovascularly intact with full active range of motion and no signs of bony deformity or joint effusion. Neuro CN's II-XII intact bilaterally Neuro Narrative: Patient is at his baseline mental status without focal neurologic deficit Sensorium / Orientation: alert Psych Psych Narrative: Patient has a flat affect Skin no rashes or lesions noted Skin Narrative: No erythema or warmth noted suggest cellulitis no obvious abscess formation. No jaundice present. Skin turgor is increased however consistent with dehydration. General Skin Exam: Negative for jaundice MDM MDM MDM Narrative Medical decision making narrative: Patient presented to the ER afebrile and normotensive. He is at his baseline mental status. However with nursing reporting he has been failing to eat or drink for the past few days and the patient having abdominal pain on exam there is concern for dehydration acute kidney injury electrolyte derangement urinary tract infection colitis/diverticulitis as the cause of his symptoms. Patient blood work was obtained and shows leukocytosis at 19.6 and secondary to this elevation of the white blood cell count blood cultures and a lactic acid were ordered. Lactic acid is slightly elevated at 2.7. Patient also has an acute kidney injury with increase of his creatinine from 1.8-3.5. CT scan was done without contrast secondary to his UMBERTO and showed a distended bladder and therefore there is concern for obstructive nephropathy so a Hummel catheter was placed. This drained roughly 500 to 700 mL of urine that was cloudy and thick in nature and urine sample did show changes consistent with infection. The urine was sent for culture and patient was started on Rocephin secondary to this. He was given 1 L fluid bolus secondary to UMBERTO and then started on gentle fluid hydration. At this time with his UTI and acute kidney injury he is not safe to return back to the correction and therefore will be admitted to the hospital for further care. While awaiting placement in the hospital patient's blood pressure began to drop and repeat vitals showed hypotension at 76/46 with development of a fever at 100.3. With the patient's change in vital signs and has leukocytosis and lactic acidosis he does qualify for sepsis. Secondary to this he was given another 1.5 L of fluid to reach his 30 mL/kg fluid bolus. After receiving his 30 ml/kg fluid boluses pressure improved to 120/60 indicating he is fluid responsive and does not require intravenous pressors. However because of his septicemia and risk for decompensation patient will be admitted to the ICU for further care History & Record Review Discussion w/independent historian: Other Lab Data Attestation: I reviewed the patient's lab results. Labs: Laboratory Results - last 24 hr 04/03/16/23 03/16/23 22:25 22:25 23:19 WBC 19.6 H RBC 4.42 L Hgb 13.5 Hct 40.8 MCV 92.3 MCH 30.5 MCHC 33.1 RDW Std Deviation 45.9 H RDW Coeff of Priya 13.6 Plt Count 187 MPV 10.3 Immature Gran % (Auto) 0.500 Neut % (Auto) 84.4 H Lymph % (Auto) 5.4 L Greenlee % (Auto) 9.4 Eos % (Auto) 0.1 Baso % (Auto) 0.2 Absolute Neuts (auto) 16.6 H Absolute Lymphs (auto) 1.06 Nucleated RBC % 0 Differential Comment SEE COMMENT Diff Path Review May foll Platelet Estimate ADEQUATE RBC Morphology N CHROM Anisocytosis RARE Macrocytosis RARE Sodium 140 Potassium 4.7 Chloride 110 H Carbon Dioxide 24.0 Anion Gap 6 BUN 75 H Creatinine 3.49 H Estim Creat Clear Calc 16.56 Est GFR (MDRD) Af Amer 22 L Est GFR (MDRD) Non-Af 18 L BUN/Creatinine Ratio 21.5 H Glucose 127 H Lactic Acid Calcium 11.1 H Magnesium 2.1 TSH 0.15 L Urine Color Yellow Urine Clarity Cloudy Urine pH 6.0 Ur Specific [place]elhard 1.020 Urine Protein 100 H Urine Glucose (UA) Normal Urine Ketones 5 H Urine Occult Blood 150 H Urine Nitrite Negative Urine Bilirubin Negative Urine Urobilinogen 4 H Ur Leukocyte Esterase 500 H Urine RBC 0-5 SEEN Urine WBC >100 SEEN Ur Squamous Epith Cells 0-5 SEEN Urine Bacteria 2+ Urine Mucus 0 SEEN 03/16/23 23:44 WBC RBC Hgb Hct MCV MCH MCHC RDW Std Deviation RDW Coeff of Priya Plt Count MPV Immature Gran % (Auto) Neut % (Auto) Lymph % (Auto) Greenlee % (Auto) Eos % (Auto) Baso % (Auto) Absolute Neuts (auto) Absolute Lymphs (auto) Nucleated RBC % Differential Comment Diff Path Review Platelet Estimate RBC Morphology Anisocytosis Macrocytosis Sodium Potassium Chloride Carbon Dioxide Anion Gap BUN Creatinine Estim Creat Clear Calc Est GFR (MDRD) Af Amer Est GFR (MDRD) Non-Af BUN/Creatinine Ratio Glucose Lactic Acid 2.7 H* Calcium Magnesium TSH Urine Color Urine Clarity Urine pH Ur Specific [place] Urine Protein Urine Glucose (UA) Urine Ketones Urine Occult Blood Urine Nitrite Urine Bilirubin Urine Urobilinogen Ur Leukocyte Esterase Urine RBC Urine WBC Ur Squamous Epith Cells Urine Bacteria Urine Mucus Radiography Diagnostic Testing: Clinical Impression(s) from Imaging Studies Abdomen/Pelvis CT 03/16/23 22:49 IMPRESSION: undefined Chest X-Ray 03/16/23 23:21 IMPRESSION: Chronic interstitial lung disease. No acute abnormality. No significant change from the prior exam. Electronically Signed: Aguila Pires MD at 0:23 EDT , Chest x-ray as interpreted by the emergency medicine physician reveals chronic interstitial lung disease without acute infiltrate pneumothorax or pleural effusion Management Discussion w/another healthcare provider: Hospitalist Critical Care Time Critical Care Time: Yes Critical care time (excluding procedures): Discussing w/Consultants and - (Critical care time of 33 minutes) Discharge Plan Dx/Rx/DC Orders Clinical Impression: Urinary tract infection, Acute kidney injury, Urine retention, Dementia, Septicemia Disposition Disposition: Acute Care Hospital [facility]
[2023-03-16 23:05] LABS: Anion Gap 6 (5-15); BUN 75 mg/dL (7-18); BUN/Creat Ratio 21.5 RATIO (10-20); Calcium,Total 11.1 mg/dL (8.5-10.1); Chloride 110 mmol/L (98-107); Creatinine, Serum 3.49 mg/dL (0.70-1.30); EST Glomerular Filtration Rate 18 mL/min (>60); Est Glom Filt Rate - Afr Amer 22 mL/min (>60); Estimated Creatinine Clearance 16.56 ml/min; Glucose 127 mg/dL (74-106); Magnesium 2.1 mg/dL (1.6-2.6); Potassium 4.7 mmol/L (3.5-5.1); Sodium Level 140 mmol/L (136-145); Thyroid Stim Hormone (TSH) 0.15 uIU/mL (0.358-3.74)
[2023-03-16 23:06] LABS: Anisocytosis RARE; Macrocytosis RARE; Platelet Estimate ADEQUATE (ADEQ); Red Cell Morphology N CHROM NORMAL (NORM C&C)
--- NOTE | 2023-03-16 23:21 | RAD_ITS ---
INDICATION: cough EXAMINATION: Frontal view of the chest COMPARISON: Chest x-ray February 14, 2023. FINDINGS: Frontal view of the chest was obtained. A pacing device projects over the left lateral hemithorax. Postsurgical changes after CABG. The cardiac silhouette is not enlarged. Chronic interstitial lung disease is similar to the prior exam. No confluent airspace disease. No pneumothorax. Calcified pleural plaques at the left lung base. Elevation of the right hemidiaphragm as before. RAD/Chest 1 View (Portable) IMPRESSION: Chronic interstitial lung disease. No acute abnormality. No significant change from the prior exam. Electronically Signed: Aguila Pires MD at 0:23 EDT ,
[2023-03-16 23:23] LABS: Mucous, Urine 0 SEEN /hpf (<or=2+)
[2023-03-16 23:37] LABS: Color, Urine Yellow (Yellow); Glucose, Dipstick Normal (Normal); Ketone-Dipstick 5 mg/dl (Negative); Leukocyte Esterase-Dipstick 500 /ul (Negative); Nitrite-Dipstick Negative (Negative); Occult Blood-Urine 150 /ul (Negative); Protein-Dipstick 100 mg/dl (Negative); Urine Bilirubin Dipstick Negative (Negative); Urine Clarity Cloudy (Clear); Urine Urobilinogen 4 mg/dl (Normal)
[2023-03-16 23:40] LABS: Bacteria 2+ /hpf (None Seen); Red Blood Cells-Urine 0-5 SEEN /hpf (0-5); Squamous Epithelial Cells - UA 0-5 SEEN /hpf (0-5); White Blood Cells >100 SEEN /hpf (0-5)
[2023-03-16 23:47] VITALS: BP 149/100; PULSE 86; RESP 20
[2023-03-16 23:51] VITALS: O2SAT 78; O2SAT 96
[2023-03-17] VITALS (29 sets, daily range): BP systolic 76–190; BP diastolic 42–166; PULSE 64–96; RESP 11–30; TEMP 36.7–37.9; O2SAT 93–100; BMI 23.2; BMI 23.3
[2023-03-17] MEDS: 0.9% Normal Saline 1,000 ML 150 ML IV (00:43)
[2023-03-17] MEDS: Ceftriaxone 1 GM/50 ML BAG IV (00:43)
[2023-03-17 00:47] LABS: Lactic Acid 2.7 mmol/L (0.4-1.9)
[2023-03-17] MEDS: Acetaminophen 500 MG Tablet 1000 MG PO (02:01)
[2023-03-17] MEDS: metroNIDAZOLE 500 MG/100 ML BAG 100 MG IV ×2 (02:07→13:51)
--- NOTE | 2023-03-17 02:33 | HP.PCM.HOS_ITS ---
[facility] - General General Date of Admission: 03/17/23 Date of Service: 03/17/23 Chief Complaint: Anorexia. HPI Narrative Duyen CORTES, is a 87 M with a significant history of mild cognitive disorder; Dementia, unclear type with unclear behavioral disturbance history; interstitial lung disease ; CAD status post stents; hypothyroidism; hypertension and others who presents to the emergency department with a 2-day history of anorexia. Reportedly patient had decrease in food intake and water intake. Also patient complains of abdominal pain. Patient lives at a detention and additionally patient was hypotensive at the detention. History was taken from emergency department doctor as patient was essentially not contributing to history. Patient reports feeling chilly in emergency department room aside that he stated that he did not know why he was at the hospital. Emergency Department doctor reported that the patient was very tender in his suprapubic area. Patient was hypotensive at the emergency department and required fluid resuscitation. ED doctor reports that patient had a large bowel movements at the emergency department. [facility] Medical History Anal stenosis ANCA-positive vasculitis Atherosclerotic heart disease of [place] coronary artery without angina pectoris Benign essential HTN BPH (benign prostatic hyperplasia) Carotid artery disease Chronic gout Esophageal reflux Fatigue Hemorrhage of rectum and anus Hypothyroidism Internal hemorrhoids Interstitial lung disease Mild cognitive disorder Occlusion and stenosis of unspecified carotid artery OM (osteomyelitis) Osteomyelitis Peripheral arterial occlusive disease Prediabetes Presence of permanent cardiac pacemaker (~09/22/19) Presence of stent in coronary artery (~01/28/11) Psoriasis Pulmonary hypertension Pure hypercholesterolemia Rheumatoid arthritis Sinus bradycardia Traction bronchiectasis Urethral stricture Home Medications allopurinol 300 mg tablet 300 mg PO DAILY GOUT 04/30/14 [History Last Taken 02/17/18] aspirin 81 mg chewable tablet 81 mg PO DAILY@0800 HEART 04/30/14 [History Last Taken 02/17/18] clopidogrel 75 mg tablet 75 mg PO DAILY ANTIPLATLET 04/30/14 [History Last Taken 02/17/18] loratadine 10 mg tablet 10 mg PO DAILY ALLGIES 04/30/14 [History Last Taken 02/17/18] multivitamin with folic acid 400 mcg tablet 1 tab PO DAILY SUPPLEMENT 04/30/14 [History Last Taken 02/17/18] omega-3 fatty acids-fish oil 340 mg-1,000 mg capsule 1 ea PO DAILY SUPPLEMENT 04/30/14 [History Last Taken 02/17/18] donepezil 10 mg tablet 10 mg PO QHS MEMORY 02/17/18 [History Last Taken 02/16/18] polyethylene glycol 3350 17 gram oral powder packet 17 g PO DAILY PRN Constipation 02/17/18 [History Last Taken Unknown] vit A 300 mcg-C 200 mg-E 27 mg-lutein 2 mg and minerals tablet 1 ea PO DAILY SUPPLEMENT 02/17/18 [History Last Taken 02/17/18] lisinopril 20 mg tablet 10 mg PO DAILY BLOOD PRESSURE 03/15/18 [History Last Taken Unknown] finasteride 5 mg tablet 5 mg PO DAILY urination 01/24/20 [History Last Taken Unknown] tamsulosin 0.4 mg capsule 0.4 mg PO DAILY urination 01/24/20 [History Last Taken Unknown] nitroglycerin 0.4 mg sublingual tablet 0.4 mg sublingual Q5M PRN Chest Pain #25 tabs 01/13/21 [Rx Last Taken Unknown] pravastatin 40 mg tablet 40 mg PO QHS Check with primary doctor 09/22/21 [ History Last Taken Unknown] ofloxacin 0.3 % eye drops See Rx Instructions ophthalmic (eye) .COMPLEX 03/11/22 [History Last Taken Unknown] vitamins A,C,Z-wvom-ycymbs 2,148 mcg-113 mg-45 mg-17.4 mg tablet 1 tab PO ONCE 03/11/22 [History Last Taken Unknown] levothyroxine 150 mcg tablet 200 mcg PO DAILY thyroid 09/09/22 [History Last Taken Unknown] acetaminophen 325 mg tablet 650 mg PO Q4H PRN PRN Fever, pain 1-08/31 #0 tabs 02/19/23 [Rx Last Taken Unknown] trazodone 50 mg tablet 50 mg PO QHS #0 tabs 02/19/23 [Rx Last Taken Unknown] atorvastatin 10 mg tablet 10 mg PO QHS 03/17/23 [History Last Taken Unknown] mirtazapine 7.5 mg tablet 7.5 mg PO QHS 03/17/23 [History Last Taken Unknown] pantoprazole 40 mg tablet,delayed release (Protonix) 40 mg PO BID 03/17/23 [History Last Taken Unknown] Allergy/AdvReac Type Severity Reaction Status Date / Time cat dander [cats] Allergy Rash Verified 04/25/23 21:12 hyoscyamine [Hyoscyamine] Allergy Other Verified 03/16/23 21:12 metronidazole Allergy Unknown Verified 03/16/23 21:12 Seasonal Allergies: Uncoded Allergy PT UNSURE Verified 03/16/23 21:12 [environmental] OF REACTION sesame oil Allergy Other Verified 03/16/23 21:12 Sulfa (Sulfonamide Allergy Other Verified 03/16/23 21:12 Antibiotics) sulfamethoxazole Allergy Other Verified 03/16/23 21:12 [From Bactrim] tree nut [Tree Nut] Allergy Other Verified 03/16/23 21:12 trimethoprim [From Bactrim] Allergy Other Verified 03/16/23 21:12 Family History Father Heart disease Diabetes Mother Hypertension Prediabetes Surgical History History of amputation of lesser toe History of bunionectomy of right great toe History of cardiac catheterization History of cataract surgery History of coronary artery bypass surgery (~06/11/97) History of hemorrhoidectomy History of knee surgery History of left-sided carotid endarterectomy (~1997) History of prostatectomy History of right-sided carotid endarterectomy (~05/04/14) History of tonsillectomy History of transurethral resection of prostate History of vasectomy Hx of colonoscopy Presence of coronary angioplasty implant and graft (~01/28/11) Social History household members: none Smoking Status: Never smoker second hand exposure: No alcohol intake: never substance use type: does not use caffeine: Yes Type: carbonated beverages Number of servings: 2 what type of physical activity do you participate in: walking frequency: daily duration: 45-60 minutes/day seatbelt use: always ROS Review of Systems ROS Unobtainable: due to mental condition Vital Signs Vital Signs Vital Signs: 03/16/23 21:12 03/16/23 22:09 03/16/23 23:47 Temperature 98 F Temperature Source Temporal Pulse Rate 95 80 86 Respiratory Rate 14 16 20 H Blood Pressure 141/70 H 148/70 H 149/100 H Blood Pressure Mean 93 96 116 Pulse Ox 98 97 Oxygen Delivery Method Room Air Room Air Oxygen Flow Rate (L/min) 03/16/23 23:51 03/16/23 23:51 03/17/23 00:49 Temperature Temperature Source Pulse Rate 95 Respiratory Rate 18 Blood Pressure 114/56 L Blood Pressure Mean 75 Pulse Ox 78 96 93 Oxygen Delivery Method Room Air Nasal Cannula Room Air Oxygen Flow Rate (L/min) 2 03/17/23 01:11 03/17/23 01:16 03/17/23 02:17 Temperature 100.3 F H 100.3 F H 99.7 F H Temperature Source Core Core Core Pulse Rate 88 87 84 Respiratory Rate 18 18 20 H Blood Pressure 76/46 L 76/46 L 120/58 L Blood Pressure Mean 56 56 78 Pulse Ox 98 98 96 Oxygen Delivery Method Nasal Cannula Nasal Cannula Room Air Oxygen Flow Rate (L/min) 2 2 Weight Weight: 78.5 kg Body Mass Index (BMI) 22.8 Physical Exam Narrative Physical exam: General: Well-nourished, well-developed. Head: Normocephalic, atraumatic, no tenderness Eyes: Vision is grossly intact. EOMI ENT, no trauma, dry mucous membranes, no rhinorrhea Neck: Nontender, No thyromegaly. CVS: Regular rate and rhythm. S1-S2 present. Heart murmur present. No gallop or rub. Respiratory : clear to auscultation bilaterally, chest wall nontender Abdomen: Soft, nondistended, lower abdomen tenderness and suprapubic tenderness. Normal bowel sounds, no masses : Deferred Back: Nontender, no CVA tenderness, no midline spinal tenderness, deformities, step-offs Extremities: Nontender full range of motion, no trauma Skin: Normal color, no trauma, abrasions Neuro: Alert, Confused. Cranial nerves II through XII grossly intact. Psychiatry: Normal mood. Normal affect. Not depressed. Not anxious. Results Lab / Micro Data Result Diagrams: 03/16/23 22:25 03/16/23 22:25 Labs: Laboratory Results - last 24 hr 03/16/23 22:25: WBC 19.6 H, RBC 4.42 L, Hgb 13.5, Hct 40.8, MCV 92.3, MCH 30.5, MCHC 33.1, RDW Std Deviation 45.9 H, RDW Coeff of Priya 13.6, Plt Count 187, MPV 10.3, Immature Gran % (Auto) 0.500, Neut % (Auto) 84.4 H, Lymph % (Auto) 5.4 L, [place] % (Auto) 9.4, Eos % (Auto) 0.1, Baso % (Auto) 0.2, Absolute Neuts (auto) 16.6 H, Absolute Lymphs (auto) 1.06, Nucleated RBC % 0, Differential Comment SEE COMMENT, Diff Path Review May foll, Platelet Estimate ADEQUATE, RBC Morphology N CHROM, Anisocytosis RARE, Macrocytosis RARE 03/16/23 22:25: Sodium 140, Potassium 4.7, Chloride 110 H, Carbon Dioxide 24.0, Anion Gap 6, BUN 75 H, Creatinine 3.49 H, Estim Creat Clear Calc 16.56, Est GFR (MDRD) Af Amer 22 L, Est GFR (MDRD) Non-Af 18 L, BUN/Creatinine Ratio 21.5 H, Glucose 127 H, Calcium 11.1 H, Magnesium 2.1, TSH 0.15 L 03/16/23 23:19: Urine Color Yellow, Urine Clarity Cloudy, Urine pH 6.0, Ur Specific [place] 1.020, Urine Protein 100 H, Urine Glucose (UA) Normal, Urine Ketones 5 H, Urine Occult Blood 150 H, Urine Nitrite Negative, Urine Bilirubin Negative, Urine Urobilinogen 4 H, Ur Leukocyte Esterase 500 H, Urine RBC 0-5 SEEN, Urine WBC >100 SEEN, Ur Squamous Epith Cells 0-5 SEEN, Urine Bacteria 2+, Urine Mucus 0 SEEN 03/16/23 23:44: Lactic Acid 2.7 H* Radiology Impression Abdomen/Pelvis CT 03/16/23 22:49 IMPRESSION: undefined Chest X-Ray 03/16/23 23:21 IMPRESSION: Chronic interstitial lung disease. No acute abnormality. No significant change from the prior exam. Electronically Signed: Aguila Pires MD at 0:23 EDT , Assessment & Plan Assessment/Plan (1) Sepsis: (2) Urinary tract infection: (3) Acute kidney injury: PLAN: Plan The patient presented with sepsis due to (UTI) with acute sepsis related organ dysfunction as evidenced by (hypotension, lactic acidosis, UMBERTO). Chest x-ray: With no acute abnormality but chronic interstitial lung disease. SIRS criteria: Heart rate more than 90 WBC more than 12,000 (19,600 on presentation) organ dysfunction: SBP less than 90 or MAP less than 65 Creatinine more than 2 Lactate more than 2 mmol/L; trend Received IV fluids by sepsis protocol. Urine culture and blood culture ordered emergency department. Division Operations Manager consult UTI Review of ED labs showed abnormal urinalysis. On ceftriaxone as above. Impression of abdomen/pelvis CT by radiologist: Fecal impaction with possible stercoral proctitis. Reportedly patient had large bowel movement at the emergency department. No further work-up. Abdomen/pelvis CT was visualized independent interpreted: Distention of rectum and bladder noted. Of note reportedly bowels moved at the emergency department. UMBERTO Creatinine presentation was 3.49. His creatinine a week ago was 1.84. Baseline creatinine is around 1.38. Received normal saline bolus in emergency department. Gentle IV hydration. Trend BMP. DVT prophylaxis: Subcutaneous heparin ordered. Sepsis Attestation Date exam was performed: 03/17/23 Time exam was performed: 03:41 Sepsis Organ Dysfunction Criteria Present: SBP < 90 mmHg or MAP < 65 mmHg, Crea tinine > 2.0 mg/dL and Lactic Acid > 2 mmol/L Fluid Resuscitation Fluid Resuscitation ordered: 30 ml/kg fluid bolus ordered Sepsis Note Response to fluids: Fluid responsive hypotension Charges/Coding Visit Charges Inpatient E&M: 70358 Init Hosp L3
[2023-03-17] MEDS: 0.9% Normal Saline 1,000 ML 999 ML IV (02:35)
--- NOTE | 2023-03-17 03:12 | ED.RN ---
family made aware patient of admission
[2023-03-17 03:51] LABS: Reflex Lactate? Y
[2023-03-17] MEDS: 0.9% Saline Lock 10 ML Syringe IV (03:59)
[2023-03-17] MEDS: 0.9% Normal Saline 1,000 ML 75 ML IV ×2 (03:59→17:58)
[2023-03-17 04:07] LABS: Absolute Lymphocyte Count 1.04 X10^3/uL (0.83-4.51); Absolute Neutrophil Count 11.4 X10^3/uL (2.0-7.7); Basophil# 0.02 X10^3/uL; Basophil% 0.1 % (0-1); Eosinophil# 0.02 X10^3/uL; Eosinophils% 0.1 % (0-5); Hematocrit 36.9 % (40-54); Hemoglobin 11.6 g/dL (13.0-16.5); Lymphocyte # 1.04 X10^3/ul (0.83-4.51); Lymphocyte % 7.4 % (19-41); Mean Corp Hgb Conc 31.4 g/dL (32-36); Mean Corpuscular Hgb 30.5 pg (27.0-32.0); Mean Corpuscular Volume 97.1 fL (80-94); Mean Platelet Vol. 10.4 fl (6.2-12.0); Monocyte# 1.51 X10^3/uL; Monocyte% 10.8 % (0-10); NRBC Flagged by Analyzer 0 % (0-5); Neutrophil # 11.37 X10^3/uL (2.7-7.7); Neutrophil % 81.1 % (47-70); POSITIVE DIFFERENTIAL YES; Platelet Count 144 K/mm3 (150-450); RBC Distribution Width CV 13.6 % (11.6-14.6); RBC Distribution Width SD 48.5 fl (35.1-43.9)
[2023-03-17 04:10] LABS: Differential Indicated SCAN CRITERIA MET
[2023-03-17 04:25] LABS: Anion Gap 2 (5-15); BUN 70 mg/dL (7-18); BUN/Creat Ratio 24.6 RATIO (10-20); Calcium,Total 9.4 mg/dL (8.5-10.1); Chloride 120 mmol/L (98-107); Creatinine, Serum 2.84 mg/dL (0.70-1.30); EST Glomerular Filtration Rate 23 mL/min (>60); Est Glom Filt Rate - Afr Amer 27 mL/min (>60); Estimated Creatinine Clearance 19.52 ml/min; Glucose 129 mg/dL (74-106); Potassium 4.7 mmol/L (3.5-5.1); Sodium Level 143 mmol/L (136-145)
[2023-03-17 04:30] LABS: Differential Comment SCANNED
[2023-03-17 05:00] LABS: Lactic Acid 1.1 mmol/L (0.4-1.9)
[2023-03-17] MEDS: Levothyroxine 100 MCG Tablet 200 MCG PO (05:23)
[2023-03-17] MEDS: Allopurinol 100 MG Tablet 200 MG PO (08:08)
[2023-03-17] MEDS: Aspirin 81 MG TAB.CHEW PO (08:08)
[2023-03-17] MEDS: Multivitamin (Healthy Eyes) Capsule 1 CAP PO ×2 (08:09→15:33)
[2023-03-17] MEDS: Clopidogrel Bisulfate 75 MG Tablet PO (08:09)
[2023-03-17] MEDS: Finasteride 5 MG Tablet PO (08:09)
[2023-03-17] MEDS: Loratadine 10 MG Tablet PO (08:09)
[2023-03-17] MEDS: Pantoprazole Sodium 40 MG Tablet PO ×2 (08:09→23:12)
[2023-03-17] MEDS: Multivitamins,Therapeutic Tablet 1 TABLET PO (08:09)
[2023-03-17] MEDS: Heparin Injection (Vial) 5,000 UNIT/ML VIAL 5000 UNIT SC ×2 (08:10→23:11)
[2023-03-17] MEDS: Tamsulosin HCl 0.4 MG Capsule PO (08:10)
--- NOTE | 2023-03-17 08:41 | EX.PCM.CONCC ---
Assessment & Plan Assessment/Plan (1) Sepsis: (2) Urinary tract infection: (3) Acute kidney injury: PLAN: Plan RECOMMENDATIONS: 1. Continue empiric antibiotics 2. Fluid boluses with LR as necessary for hypotension 3. Wean oxygen as tolerated 4. Monitor renal function on a daily basis with electrolyte repletion as indicated 5. Possibly okay to leave the intensive care unit later today IMPRESSIONS: 1. Sepsis secondary to UTI Patient with documented hypotension, lactic acidosis and acute kidney injury while meeting SIRS criteria. Patient did respond to fluid boluses and has been doing well thus far. Cannot exclude an element of proctitis complicating overall condition. Patient has responded well to antibiotics. We will monitor in the intensive care unit through the day today. Patient can likely be transferred from the intensive care unit later today if blood pressure remained stable. We will continue to bolus as necessary. Would recommend LR as continue normal saline could lead to hyperchloremia and worsening of metabolic acidosis. 2. Acute kidney injury on CKD stage IV Baseline creatinine appears to be around 1.4. Recent creatinine was 1.8. Patient has responded well to fluid resuscitation thus far. We will continue to trend BMPs. No indication for renal replacement therapy at this time. 3. Dementia/advanced age/delayed presentation Complicates care, management, recovery and prognosis. Okay to continue with baseline medications. Confirmed both in the ER and as an outpatient the patient is a DNR Comfort Care arrest without intubation. HPI Consult Data Date of Consult: 03/17/23 HPI Narrative Reason for Consultation: Severe sepsis HPI Narrative: Duyen CORTES is an 87 M, with past medical history listed below and well-known to me from the outpatient office, who presents to [facility] on 03/16/2023 from a retirement secondary to failure to thrive. Patient does have a history of osteomyelitis requiring amputation of toes on his right foot. Patient was unable to provide any history on presentation, but retirement had reported poor oral intakes with a lack of eating and drinking for the past 2 days. Patient had also complained of abdominal pain. Patient reportedly was hypotensive and was sent to the ER for evaluation. Patient was confirmed as a DNR Comfort Care arrest without intubation. In the ER, patient was afebrile and normotensive with a blood pressure of 141/70. Patient was saturating well on room air initially, but did desaturate to 78% was placed on 2 L nasal cannula. Laboratory data showed a white blood cell count of 19.6, hemoglobin of 13.5 and a platelet count of 187. Chemistry showed a normal bicarbonate of 24, but significantly elevated BUN of 75 and creatinine of 3.49. Initial glucose was elevated at 127 and UA was highly suggestive of UTI. Lactate initially was 2.7. CT of the abdomen and pelvis showed possible fecal impaction and a chest x-ray showed only chronic changes. Hummel catheter was placed secondary to concerns for urinary retention. Patient was given Rocephin and fluid resuscitation. Patient became hypotensive following antibiotics and was given a fluid bolus. Patient transferred to the intensive care unit for further evaluation. Since being in the intensive care unit, patient has required 2 L nasal cannula to maintain saturations. Patient's blood pressure has been maintained without pressors. Patient this morning is unable to provide much additional information. Patient states he is not having any pain. Patient not answering any questions and states only that he is tired and needs to get some sleep. Patient is not reporting any flank pain or rectal pain directly. Unable to obtain a full review of systems secondary to mental status and cooperation. [facility] Medical History Anal stenosis ANCA-positive vasculitis Atherosclerotic heart disease of [place] coronary artery without angina pectoris Benign essential HTN BPH (benign prostatic hyperplasia) Carotid artery disease Chronic gout Esophageal reflux Fatigue Hemorrhage of rectum and anus Hypothyroidism Internal hemorrhoids Interstitial lung disease Mild cognitive disorder Occlusion and stenosis of unspecified carotid artery OM (osteomyelitis) Osteomyelitis Peripheral arterial occlusive disease Prediabetes Presence of permanent cardiac pacemaker (~09/22/19) Presence of stent in coronary artery (~01/28/11) Psoriasis Pulmonary hypertension Pure hypercholesterolemia Rheumatoid arthritis Sinus bradycardia Traction bronchiectasis Urethral stricture Home Medications allopurinol 300 mg tablet 300 mg PO DAILY GOUT 04/30/14 [History Last Taken 02/17/18] aspirin 81 mg chewable tablet 81 mg PO DAILY@0800 HEART 04/30/14 [History Last Taken 02/17/18] clopidogrel 75 mg tablet 75 mg PO DAILY ANTIPLATLET 04/30/14 [History Last Taken 02/17/18] loratadine 10 mg tablet 10 mg PO DAILY ALLGIES 04/30/14 [History Last Taken 02/17/18] multivitamin with folic acid 400 mcg tablet 1 tab PO DAILY SUPPLEMENT 04/30/14 [History Last Taken 02/17/18] omega-3 fatty acids-fish oil 340 mg-1,000 mg capsule 1 ea PO DAILY SUPPLEMENT 04/30/14 [History Last Taken 02/17/18] donepezil 10 mg tablet 10 mg PO QHS MEMORY 02/17/18 [History Last Taken 02/16/18] polyethylene glycol 3350 17 gram oral powder packet 17 g PO DAILY PRN Constipation 02/17/18 [History Last Taken Unknown] vit A 300 mcg-C 200 mg-E 27 mg-lutein 2 mg and minerals tablet 1 ea PO DAILY SUPPLEMENT 02/17/18 [History Last Taken 02/17/18] lisinopril 20 mg tablet 10 mg PO DAILY BLOOD PRESSURE 03/15/18 [History Last Taken Unknown] finasteride 5 mg tablet 5 mg PO DAILY urination 01/24/20 [History Last Taken Unknown] tamsulosin 0.4 mg capsule 0.4 mg PO DAILY urination 01/24/20 [History Last Taken Unknown] nitroglycerin 0.4 mg sublingual tablet 0.4 mg sublingual Q5M PRN Chest Pain #25 tabs 01/13/21 [Rx Last Taken Unknown] pravastatin 40 mg tablet 40 mg PO QHS Check with primary doctor 09/22/21 [History Last Taken Unknown] ofloxacin 0.3 % eye drops See Rx Instructions ophthalmic (eye) .COMPLEX 03/11/22 [History Last Taken Unknown] vitamins A,C,O-rzlz-pcrdxb 2,148 mcg-113 mg-45 mg-17.4 mg tablet 1 tab PO ONCE 03/11/22 [History Last Taken Unknown] levothyroxine 150 mcg tablet 200 mcg PO DAILY thyroid 09/09/22 [History Last Taken Unknown] acetaminophen 325 mg tablet 650 mg PO Q4H PRN PRN Fever, pain 1-08/31 #0 tabs 02/19/23 [Rx Last Taken Unknown] trazodone 50 mg tablet 50 mg PO QHS #0 tabs 02/19/23 [Rx Last Taken Unknown] atorvastatin 10 mg tablet 10 mg PO QHS 03/17/23 [History Last Taken Unknown] mirtazapine 7.5 mg tablet 7.5 mg PO QHS 03/17/23 [History Last Taken Unknown] pantoprazole 40 mg tablet,delayed release (Protonix) 40 mg PO BID 03/17/23 [History Last Taken Unknown] Allergy/AdvReac Type Severity Reaction Status Date / Time cat dander [cats] Allergy Rash Verified 03/16/23 21:12 hyoscyamine [Hyoscyamine] Allergy Other Verified 03/16/23 21:12 metronidazole Allergy Unknown Verified 03/16/23 21:12 Seasonal Allergies: Uncoded Allergy PT UNSURE Verified 03/16/23 21:12 [environmental] OF REACTION sesame oil Allergy Other Verified 03/16/23 21:12 Sulfa (Sulfonamide Allergy Other Verified 03/16/23 21:12 Antibiotics) sulfamethoxazole Allergy Other Verified 03/16/23 21:12 [From Bactrim] tree nut [Tree Nut] Allergy Other Verified 03/16/23 21:12 trimethoprim [From Bactrim] Allergy Other Verified 03/16/23 21:12 Family History Father Heart disease Diabetes Mother Hypertension Prediabetes Surgical History History of amputation of lesser toe History of bunionectomy of right great toe History of cardiac catheterization History of cataract surgery History of coronary artery bypass surgery (~06/11/97) History of hemorrhoidectomy History of knee surgery History of left-sided carotid endarterectomy (~1997) History of prostatectomy History of right-sided carotid endarterectomy (~05/04/14) History of tonsillectomy History of transurethral resection of prostate History of vasectomy Hx of colonoscopy Presence of coronary angioplasty implant and graft (~01/28/11) Social History household members: none Smoking Status: Never smoker second hand exposure: No alcohol intake: never substance use type: does not use caffeine: Yes Type: carbonated beverages Number of servings: 2 what type of physical activity do you participate in: walking frequency: daily duration: 45-60 minutes/day seatbelt use: always ROS Review of Systems ROS Unobtainable: due to mental status Physical Exam Const alert and no apparent distress Orientation / Consciousness: oriented to person Nutritional Appearance: thin HEENT normocephalic and head/scalp atraumatic HEENT Narrative: Dry mucous membranes Eyes PERRL, EOMs intact bilaterally, conjunctivae normal and no scleral icterus Neck full ROM and no JVD Chest inspection of chest normal Resp normal respiratory effort and no use of accessory muscles Effort and Inspection: Negative for tachypneic Auscultation: Negative for rales, rhonchi or wheezes Cardio regular rate, regular rhythm, S1 normal heart sound, S2 normal heart sound, no rub and no gallops GI normal to inspection, nondistended, normoactive bowel sounds Extremity no clubbing, cyanosis or edema Neuro oriented x3, CN's II-XII intact bilaterally and moves all extremities Psych Mood & Affect: flat affect Medical Records Data Attestation: I reviewed the patient's medical records Lab / Micro Data Attestation: I reviewed the patient's lab results. Result Diagrams: 03/17/23 03:55 03/17/23 03:55 Labs: Laboratory Results - last 24 hr 03/16/23 22:25: WBC 19.6 H, RBC 4.42 L, Hgb 13.5, Hct 40.8, MCV 92.3, MCH 30.5, MCHC 33.1, RDW Std Deviation 45.9 H, RDW Coeff of Priya 13.6, Plt Count 187, MPV 10.3, Immature Gran % (Auto) 0.500, Neut % (Auto) 84.4 H, Lymph % (Auto) 5.4 L, [place] % (Auto) 9.4, Eos % (Auto) 0.1, Baso % (Auto) 0.2, Absolute Neuts (auto) 16.6 H, Absolute Lymphs (auto) 1.06, Nucleated RBC % 0, Differential Comment SEE COMMENT, Diff Path Review May foll, Platelet Estimate ADEQUATE, RBC Morphology N CHROM, Anisocytosis RARE, Macrocytosis RARE 03/16/23 22:25: Sodium 140, Potassium 4.7, Chloride 110 H, Carbon Dioxide 24.0, Anion Gap 6, BUN 75 H, Creatinine 3.49 H, Estim Creat Clear Calc 16.56, Est GFR (MDRD) Af Amer 22 L, Est GFR (MDRD) Non-Af 18 L, BUN/Creatinine Ratio 21.5 H, Glucose 127 H, Calcium 11.1 H, Magnesium 2.1, TSH 0.15 L 03/16/23 23:19: Urine Color Yellow, Urine Clarity Cloudy, Urine pH 6.0, Ur Specific [place] 1.020, Urine Protein 100 H, Urine Glucose (UA) Normal, Urine Ketones 5 H, Urine Occult Blood 150 H, Urine Nitrite Negative, Urine Bilirubin Negative, Urine Urobilinogen 4 H, Ur Leukocyte Esterase 500 H, Urine RBC 0-5 SEEN, Urine WBC >100 SEEN, Ur Squamous Epith Cells 0-5 SEEN, Urine Bacteria 2+, Urine Mucus 0 SEEN 03/16/23 23:44: Lactic Acid 2.7 H* 03/17/23 03:55: WBC 14.0 H, RBC 3.80 L, Hgb 11.6 L, Hct 36.9 L, MCV 97.1 H D, MCH 30.5, MCHC 31.4 L D, RDW Std Deviation 48.5 H, RDW Coeff of Priya 13.6, Plt Count 144 L, MPV 10.4, Immature Gran % (Auto) 0.500, Neut % (Auto) 81.1 H, Lymph % (Auto) 7.4 L, [place] % (Auto) 10.8 H, Eos % (Auto) 0.1, Baso % (Auto) 0.1, Absolute Neuts (auto) 11.4 H, Absolute Lymphs (auto) 1.04, Nucleated RBC % 0, Differential Comment SCANNED, Diff Path Review March03/17/23 03:55: Sodium 143, Potassium 4.7, Chloride 120 H, Carbon Dioxide 21.0, Anion Gap 2 L, BUN 70 H, Creatinine 2.84 H, Estim Creat Clear Calc 19.52, Est GFR (MDRD) Af Amer 27 L, Est GFR (MDRD) Non-Af 23 L, BUN/Creatinine Ratio 24.6 H, Glucose 129 H, Calcium 9.4 03/17/23 03:55: Lactic Acid 1.1 Radiology Impression Abdomen/Pelvis CT 03/16/23 22:49 IMPRESSION: undefined Chest X-Ray 03/16/23 23:21 IMPRESSION: Chronic interstitial lung disease. No acute abnormality. No significant change from the prior exam. Electronically Signed: Aguila Pires MD at 0:23 EDT , Charges/Coding Visit Charges Inpatient E&M: 79262 Init Hosp L3
--- NOTE | 2023-03-17 09:34 | CASEMGMT ---
Addendum entered by Carol Arevalo 03/17/23 15:55: JEMMA sent therapy evaluations to [facility]. MD Mcdaniel informed pt will be ready for d/c in 1-2 days. JEMMA asked [facility] to start precert. Addendum entered by Carol Arevalo 03/17/23 10:03: Nadja at [facility] confirmed pt can return when medically ready. Nadja asked if pt has skilled needs for SW to send updates so the process for insurance auth can be started. JEMMA explained not sure on ADOD but that clinical updates will be sent as they come in. PLAN: Return to [facility], when medically ready- with precert if pt has skillable need ARUN Serna Addendum entered by Carol Arevalo 03/17/23 09:54: JEMMA sent updates to [facility] via [employer] and inquired about pt return. Will await response to continue discharge planning. Original Note: Social Work Pt with dementia, came from [facility]. JEMMA called pt daughter, Radha Vega, to begin discharge planning. Radha did not answer. JEMMA left message requesting a call back and provided a contact number. Radha called back immediately and was able to confirm with JEMMA that [facility] is the plan for discharge when pt is medically ready. Radha gave permission for JEMMA to send updated to [facility] in anticipation of pt returning when pt is stable and ready for discharge. PLAN: [facility] ARUN Serna
[2023-03-17 13:33] LABS: Pathologist Review Reviewed
[2023-03-17 13:35] LABS: Pathologist Review Reviewed
[2023-03-17] MEDS: Acetaminophen 325 MG Tablet 650 MG PO ×2 (15:34→23:12)
--- NOTE | 2023-03-17 17:43 | PN.HOSP_ITS ---
Hospitalist Note Patient was seen and examined today, I talked to his daughter who was in the room at the time my examination, patient appeared confused-he has a history of dementia-and he complained of being cold. Patient is afebrile at the time of my visit, I talked with critical care about his care today and they felt he was stable for transfer to the floor. Patient's white blood cell count was 14,000 today, he appears to be septic from urinary tract infection. At this time, patient will be transferred to [facility], he will need placement in a skilled n ursing facility at the time of discharge from the hospital, I talked with case management about this today and they will place a request for approval to go back to [facility] as a skilled patient.
[2023-03-17] MEDS: Menthol/Lanolin/Calamine/Znox 113 GM Tube 1 APPLIC TOPICAL ×2 (17:59→23:11)
[2023-03-17] MEDS: Donepezil HCl 10 MG Tablet PO (23:12)
[2023-03-17] MEDS: Atorvastatin Calcium 10 MG Tablet PO (23:12)
[2023-03-17] MEDS: Mirtazapine 15 MG Tablet PO (23:12)
[2023-03-17] MEDS: traZODone 50 MG Tablet PO (23:12)
[2023-03-18 05:00] VITALS: BP 138/64; PULSE 72; RESP 16; TEMP 36.9; O2SAT 94
[2023-03-18] MEDS: Acetaminophen 325 MG Tablet 650 MG PO ×2 (05:12→20:33)
[2023-03-18] MEDS: Levothyroxine 100 MCG Tablet 200 MCG PO (05:13)
[2023-03-18 06:28] LABS: Absolute Lymphocyte Count 0.84 X10^3/uL (0.83-4.51); Absolute Neutrophil Count 9.3 X10^3/uL (2.0-7.7); Basophil# 0.04 X10^3/uL; Basophil% 0.3 % (0-1); Eosinophil# 0.36 X10^3/uL; Eosinophils% 3.1 % (0-5); Hematocrit 33.3 % (40-54); Hemoglobin 10.6 g/dL (13.0-16.5); Lymphocyte # 0.84 X10^3/ul (0.83-4.51); Lymphocyte % 7.3 % (19-41); Mean Corp Hgb Conc 31.8 g/dL (32-36); Mean Corpuscular Hgb 30.5 pg (27.0-32.0); Mean Platelet Vol. 9.8 fl (6.2-12.0); Monocyte# 0.99 X10^3/uL; Monocyte% 8.6 % (0-10); NRBC Flagged by Analyzer 0 % (0-5); Neutrophil # 9.26 X10^3/uL (2.7-7.7); Neutrophil % 80.3 % (47-70); Platelet Count 126 K/mm3 (150-450); RBC Distribution Width CV 14.1 % (11.6-14.6); RBC Distribution Width SD 49.1 fl (35.1-43.9); Red Blood Count 3.47 M/mm3 (4.6-6.2); White Blood Count 11.5 K/mm3 (4.4-11.0)
[2023-03-18] MEDS: 0.9% Normal Saline 1,000 ML 75 ML IV (06:42)
[2023-03-18 06:55] LABS: Anion Gap 1 (5-15); BUN 52 mg/dL (7-18); BUN/Creat Ratio 30.1 RATIO (10-20); Calcium,Total 9.7 mg/dL (8.5-10.1); Chloride 122 mmol/L (98-107); Creatinine, Serum 1.73 mg/dL (0.70-1.30); EST Glomerular Filtration Rate 40 mL/min (>60); Est Glom Filt Rate - Afr Amer 48 mL/min (>60); Estimated Creatinine Clearance 32.04 ml/min; Glucose 115 mg/dL (74-106); Potassium 4.2 mmol/L (3.5-5.1); Sodium Level 145 mmol/L (136-145)
[2023-03-18 07:13] VITALS: O2SAT 93
--- NOTE | 2023-03-18 07:55 | PN.CC_ITS ---
Assessment & Plan Assessment/Plan (1) Sepsis: (2) Urinary tract infection: (3) Acute kidney injury: PLAN: Plan RECOMMENDATIONS: 1. Continue empiric antibiotics pending cultures 2. Discontinue IV fluids 3. Wean oxygen as tolerated 4. Monitor renal function on a daily basis with electrolyte repletion as indicated 5. Hemodynamically stable on room air. Will sign off from a critical care perspective IMPRESSIONS: 1. Sepsis secondary to UTI Patient with documented hypotension, lactic acidosis and acute kidney injury while meeting SIRS criteria. Patient did respond to fluid boluses and has been doing well thus far. Patient appears to be improving. Narrow antibiotics pending culture data. We will discontinue IV fluids as this will lead to hyperchloremia and none anion gap metabolic acidosis complicating res piratory status. 2. Acute kidney injury on CKD stage IV Resolved. Baseline creatinine appears to be around 1.4. Recent creatinine was 1.8. Patient has responded well to fluid resuscitation thus far. We will continue to trend BMPs. No indication for renal replacement therapy at this time. 3. Dementia/advanced age/delayed presentation Complicates care, management, recovery and prognosis. Okay to continue with baseline medications. Confirmed both in the ER and as an outpatient the patient is a DNR Comfort Care arrest without intubation. Subjective Subjective Patient is more interactive today than he has been in the past. Patient is still confused and oriented only to self, but did recognize that I had seen him before. Patient is not reporting any pain. No hemodynamic instability reported overnight. Objective Data Objective Data Vital Signs: Vital Signs Temp Pulse Resp BP Pulse Ox O2 Del Method O2 Flow Rate 36.9 C 72 16 138/64 H 93 Room Air 2 03/18/23 05:00 03/18/23 05:00 03/18/23 05:00 03/18/23 05:00 03/18/23 07:13 03/18/23 07:13 03/17/23 07:00 Oxygen Flow Rate (L/min) 2 Oxygen Delivery Method Room Air Weight: 75.5 kg Body Mass Index (BMI) 23.3 Intake & Output: Intake and Output for Last 24 Hours 03/16/23 03/17/23 03/18/23 23:59 23:59 23:59 Intake Total 1000 / 1000 3984.5 / 3984.5 706.25 / 706.25 Output Total 1800 / 1800 400 / 400 Balance 1000 / 1000 2184.5 / 2184.5 306.25 / 306.25 Medical Nutrition Assessment Dietitian: Malnutrition Criteria Met Start: 03/17/23 17:32 Freq: Status: Active Protocol: Document 03/17/23 17:32 RMA (Rec: 03/17/23 17:32 RMA [id number]) Nutrition Malnutrition Evidence of Malnutrition Exists Yes Malnutrition (severe): Chronic Evidenced By Suboptimal Energy Intake ( Severe),Weight Loss (Severe) Clinical Problem Chronic Disease or Condition Related Malnutrition Etiology Severe protein-calorie malnutrition in the context of chronic disease and debility related to inadequate oral intake Signs/Symptoms as evidenced by weight loss ~ 10% x 1 month and PO meeting less than 50% estimated nutrition needs x past 1-2 month Status Active Problem Recommendation Dietitian Recommendations/Changes Given signs/symptoms of malnutrition, will liberalize diet to Regular and encourage PO as tolerated. Will add 240 ml Ensure Plus high protein TID w/ meals; adjust ONS as needed. Consider enteral nutrition support to prevent further energy depletion/weight decline. Lab / Micro Data Attestation: I reviewed the patient's lab results. Result Diagrams: 03/18/23 06:21 03/18/23 06:21 Labs: Laboratory Results - last 24 hr 03/16/23 22:25: Diff Path Review Reviewed 03/17/23 03:55: Diff Path Review Reviewed 03/18/23 06:21: WBC 11.5 H, RBC 3.47 L, Hgb 10.6 L, Hct 33.3 L, MCV 96.0 H, MCH 30.5, MCHC 31.8 L, RDW Std Deviation 49.1 H, RDW Coeff of Priya 14.1, Plt Count 126 L, MPV 9.8, Immature Gran % (Auto) 0.400, Neut % (Auto) 80.3 H, Lymph % (Auto) 7.3 L, [place] % (Auto) 8.6, Eos % (Auto) 3.1, Baso % (Auto) 0.3, Absolute Neuts (auto) 9.3 H, Absolute Lymphs (auto) 0.84, Nucleated RBC % 0 03/18/23 06:21: Sodium 145, Potassium 4.2, Chloride 122 H, Carbon Dioxide 22.0, Anion Gap 1 L, BUN 52 H, Creatinine 1.73 H, Estim Creat Clear Calc 32.04, Est GFR (MDRD) Af Amer 48 L, Est GFR (MDRD) Non-Af 40 L, BUN/Creatinine Ratio 30.1 H , Glucose 115 H, Calcium 9.7 Physical Exam Const alert and no apparent distress Orientation / Consciousness: oriented to person Nutritional Appearance: thin HEENT normocephalic and head/scalp atraumatic Eyes PERRL, EOMs intact bilaterally, conjunctivae normal and no scleral icterus Neck full ROM and no JVD Chest inspection of chest normal Resp normal respiratory effort and no use of accessory muscles Effort and Inspection: Negative for tachypneic Auscultation: Negative for rales, rhonchi or wheezes Cardio regular rate, regular rhythm, S1 normal heart sound, S2 normal heart sound, no rub and no gallops GI normal to inspection, nondistended, normoactive bowel sounds Extremity no clubbing, cyanosis or edema Neuro oriented x3, CN's II-XII intact bilaterally and moves all extremities Psych Mood & Affect: flat affect Charges/Coding Visit Charges Inpatient E&M: 95050 Subs Hosp L2
[2023-03-18] MEDS: Allopurinol 100 MG Tablet 200 MG PO (09:44)
[2023-03-18] MEDS: Finasteride 5 MG Tablet PO (09:44)
[2023-03-18] MEDS: Pantoprazole Sodium 40 MG Tablet PO ×2 (09:44→20:34)
[2023-03-18] MEDS: Multivitamins,Therapeutic Tablet 1 TABLET PO (09:44)
[2023-03-18] MEDS: Clopidogrel Bisulfate 75 MG Tablet PO (09:44)
[2023-03-18] MEDS: Menthol/Lanolin/Calamine/Znox 113 GM Tube 1 APPLIC TOPICAL ×4 (09:45→20:44)
[2023-03-18] MEDS: Aspirin 81 MG TAB.CHEW PO (09:45)
[2023-03-18] MEDS: Tamsulosin HCl 0.4 MG Capsule PO (09:45)
[2023-03-18] MEDS: Loratadine 10 MG Tablet PO (09:45)
[2023-03-18] MEDS: Multivitamin (Healthy Eyes) Capsule 1 CAP PO ×2 (09:45→18:46)
[2023-03-18] MEDS: Heparin Injection (Vial) 5,000 UNIT/ML VIAL 5000 UNIT SC ×2 (09:46→20:33)
[2023-03-18 10:40] VITALS: O2SAT 94
[2023-03-18 12:00] VITALS: BP 112/61; PULSE 66; RESP 18; TEMP 36.6; O2SAT 94
--- NOTE | 2023-03-18 16:04 | PCM.PN.HOSP ---
Reason for Visit Reason for Visit: Diagnoses Sepsis, unspecified organism (03/17/23) Acute kidney failure, unspecified (03/17/23) Urinary tract infection, site not specified (03/17/23) Subjective Subjective Patient was seen and examined today, he is resting quietly does not complain of any shortness of breath, chills, or fever. Patient's urine culture showed mixed gram-positive organisms, blood cultures pending at this time. Patient's white blood cell count today was 11.5, he has been afebrile today. Objective Data Objective Data Vital Signs: Vital Signs Temp Pulse Resp BP Pulse Ox O2 Del Method O2 Flow Rate 97.9 F 66 18 112/61 94 Room Air 2 03/18/23 12:00 03/18/23 12:00 03/18/23 12:00 03/18/23 12:00 03/18/23 12:00 03/18/23 12:00 03/17/23 07:00 Oxygen Flow Rate (L/min) 2 Oxygen Delivery Method Room Air Weight: 75.5 kg Body Mass Index (BMI) 23.3 Intake & Output: Intake and Output for Last 24 Hours 03/16/23 03/17/23 03/18/23 23:59 23:59 23:59 Intake Total 1000 / 1000 3984.5 / 3984.5 1109.50 / 1109.50 Output Total 1800 / 1800 400 / 400 Balance 1000 / 1000 2184.5 / 2184.5 709.50 / 709.50 Medical Nutrition Assessment Dietitian: Malnutrition Criteria Met Start: 03/17/23 17:32 Freq: Status: Active Protocol: Document 03/17/23 17:32 RMA (Rec: 03/17/23 17:32 RMA [id number]) Nutrition Malnutrition Evidence of Malnutrition Exists Yes Malnutrition (severe): Chronic Evidenced By Suboptimal Energy Intake ( Severe),Weight Loss (Severe) Clinical Problem Chronic Disease or Condition Related Malnutrition Etiology Severe protein-calorie malnutrition in the context of chronic disease and debility related to inadequate oral intake Signs/Symptoms as evidenced by weight loss ~ 10% x 1 month and PO meeting less than 50% estimated nutrition needs x past 1-2 month Status Active Problem Recommendation Dietitian Recommendations/Changes Given signs/symptoms of malnutrition, will liberalize diet to Regular and encourage PO as tolerated. Will add 240 ml Ensure Plus high protein TID w/ meals; adjust ONS as needed. Consider enteral nutrition support to prevent further energy depletion/weight decline. Lab / Micro Data Result Diagrams: 03/18/23 06:21 03/18/23 06:21 Labs: Laboratory Results - last 24 hr 03/18/23 06:21: WBC 11.5 H, RBC 3.47 L, Hgb 10.6 L, Hct 33.3 L, MCV 96.0 H, MCH 30.5, MCHC 31.8 L, RDW Std Deviation 49.1 H, RDW Coeff of Priya 14.1, Plt Count 126 L, MPV 9.8, Immature Gran % (Auto) 0.400, Neut % (Auto) 80.3 H, Lymph % (Auto) 7.3 L, [place] % (Auto) 8.6, Eos % (Auto) 3.1, Baso % (Auto) 0.3, Absolute Neuts (auto) 9.3 H, Absolute Lymphs (auto) 0.84, Nucleated RBC % 0 03/18/23 06:21: Sodium 145, Potassium 4.2, Chloride 122 H, Carbon Dioxide 22.0, Anion Gap 1 L, BUN 52 H, Creatinine 1.73 H, Estim Creat Clear Calc 32.04, Est GFR (MDRD) Af Amer 48 L, Est GFR (MDRD) Non-Af 40 L, BUN/Creatinine Ratio 30.1 H, Glucose 115 H, Calcium 9.7 Micro: Microbiology 03/16/23 23:44 Urine, Clean Catch Urine Culture - Final Mixed Gram Positive Organisms Physical Exam Const alert and no apparent distress Constitutional Narrative: Patient exhibits moderate to severe confusion, he is directable at times General Appearance: cooperative, well kempt and well developed Orientation / Consciousness: awake HEENT normocephalic, head/scalp atraumatic and moist oral mucous membranes Eyes PERRL, EOMs intact bilaterally and conjunctivae normal Neck supple, no JVD, thyroid normal and no carotid bruits General: trachea midline Resp normal respiratory effort, no retractions, no use of accessory muscles and clear to auscultation bilaterally Auscultation: Negative for rales, rhonchi or wheezes Cardio regular rate, regular rhythm, S1 normal heart sound, S2 normal heart sound, no murmurs, no rub and no gallops GI normal to inspection, nondistended, normoactive bowel sounds, soft to palpation, non-tender and non-distended Extremity no clubbing, cyanosis or edema Skin no rashes or lesions noted General Skin Exam: no breakdown Neuro CN's II-XII intact bilaterally, moves all extremities, no focal motor deficits and no sensory deficits noted Neuro Narrative: Patient is alert but confused Sensorium / Orientation: awake and alert Psych Psych Narrative: Patient is alert but confused Assessment & Plan Assessment/Plan (1) Sepsis: PLAN: Plan 1. Acute sepsis secondary to urinary tract infection-exact bacterial etiology unknown at this point, continue IV Unasyn #2 acute kidney injury on a backdrop of chronic kidney disease stage IIIb-patient's BMP will be repeated tomorrow #3 dementia-complicates care, medical course, recovery, and prognosis, patient will need to return to his halfway facility at the time of discharge from the hospital here. Patient is on Aricept #4 chronic interstitial lung disease-complicates care, medical course, recovery, and prognosis #5 hypothyroidism-patient will remain on Synthroid #6 chronic severe protein and caloric malnutrition in the context of chronic disease and debility related to inadequate oral intake as evidenced by weight loss of approximately 10% x 1 month and p.o. meeting less than 50% of the estimated nutritional needs times past 1 to 2 months - 240 mL of Ensure Plus high-protein 3 times daily with meals were added to the patient's diet, diet was liberalized to regular. I increased the patient's Remeron yesterday. #7 hyperlipidemia-patient is on Lipitor #8 atherosclerotic heart disease-patient is currently on Lipitor, Plavix, and aspirin #9 BPH-patient is on Flomax and Proscar #10 essential hypertension-due to the patient's low blood pressure, blood pressure medications being held at this time Total clinical time spent by myself addressing the patient's medical issues, reviewing all of the data, and collaborating with patient's care team: 37 minutes Charges/Coding Visit Charges Inpatient E&M: 63726 Subs Hosp L2
[2023-03-18 20:22] VITALS: BP 157/71; PULSE 97; RESP 18; TEMP 36.8; O2SAT 97
[2023-03-18] MEDS: Mirtazapine 15 MG Tablet PO (20:31)
[2023-03-18] MEDS: Atorvastatin Calcium 10 MG Tablet PO (20:33)
[2023-03-18] MEDS: Donepezil HCl 10 MG Tablet PO (20:34)
[2023-03-18] MEDS: traZODone 50 MG Tablet PO (20:34)
[2023-03-19 03:25] VITALS: BP 149/85; PULSE 80; RESP 18; TEMP 36.7; O2SAT 93
[2023-03-19] MEDS: Acetaminophen 325 MG Tablet 650 MG PO ×2 (03:33→17:30)
[2023-03-19 06:00] VITALS: BMI 23.2
--- NOTE | 2023-03-19 09:40 | CASEMGMT ---
Discharge Pending Updates sent to [facility]. Pre-cert is still pending. Irais Alvarado
[2023-03-19] MEDS: Loratadine 10 MG Tablet PO (09:48)
[2023-03-19] MEDS: Multivitamins,Therapeutic Tablet 1 TABLET PO (09:48)
[2023-03-19] MEDS: Aspirin 81 MG TAB.CHEW PO (09:48)
[2023-03-19] MEDS: Multivitamin (Healthy Eyes) Capsule 1 CAP PO ×2 (09:48→16:56)
[2023-03-19] MEDS: Tamsulosin HCl 0.4 MG Capsule PO (09:48)
[2023-03-19] MEDS: Allopurinol 100 MG Tablet 200 MG PO (09:49)
[2023-03-19] MEDS: Nystatin Ointment 1 APPLIC TOPICAL (09:49)
[2023-03-19] MEDS: Pantoprazole Sodium 40 MG Tablet PO ×2 (09:49→21:26)
[2023-03-19] MEDS: Heparin Injection (Vial) 5,000 UNIT/ML VIAL 5000 UNIT SC (09:49)
[2023-03-19] MEDS: Finasteride 5 MG Tablet PO (09:49)
[2023-03-19] MEDS: Clopidogrel Bisulfate 75 MG Tablet PO (09:49)
[2023-03-19] MEDS: Menthol/Lanolin/Calamine/Znox 113 GM Tube 1 APPLIC TOPICAL ×3 (09:50→16:56)
[2023-03-19 10:06] VITALS: O2SAT 93
[2023-03-19 10:09] VITALS: BP 145/77; PULSE 68; RESP 18; TEMP 36.3; O2SAT 96
[2023-03-19 15:23] VITALS: BP 134/61; PULSE 61; RESP 18; TEMP 36.4; O2SAT 98
--- NOTE | 2023-03-19 15:41 | CASEMGMT ---
Update sent to [facility]. Patient will return to intermediate care.
[2023-03-19 16:00] LABS: Absolute Lymphocyte Count 0.99 X10^3/uL (0.83-4.51); Absolute Neutrophil Count 5.8 X10^3/uL (2.0-7.7); Basophil# 0.02 X10^3/uL; Basophil% 0.3 % (0-1); Eosinophil# 0.51 X10^3/uL; Eosinophils% 6.4 % (0-5); Hematocrit 37.3 % (40-54); Hemoglobin 11.7 g/dL (13.0-16.5); Lymphocyte # 0.99 X10^3/ul (0.83-4.51); Lymphocyte % 12.4 % (19-41); Mean Corp Hgb Conc 31.4 g/dL (32-36); Mean Corpuscular Hgb 30.1 pg (27.0-32.0); Mean Corpuscular Volume 95.9 fL (80-94); Mean Platelet Vol. 10.2 fl (6.2-12.0); Monocyte# 0.68 X10^3/uL; Monocyte% 8.5 % (0-10); NRBC Flagged by Analyzer 0 % (0-5); Neutrophil # 5.78 X10^3/uL (2.7-7.7); Neutrophil % 72.1 % (47-70); Platelet Count 156 K/mm3 (150-450); RBC Distribution Width CV 13.8 % (11.6-14.6); RBC Distribution Width SD 48.5 fl (35.1-43.9); Red Blood Count 3.89 M/mm3 (4.6-6.2)
--- NOTE | 2023-03-19 16:03 | CASEMGMT ---
Addendum entered by Tess Cannon 03/19/23 17:21: Per physician pt is ready for discharge today. Discharge orders sent to [facility] via care port and faxed to after hours number. Transportation arranged with [facility] for 7:30 picking tech. JEMMA met with pt's dgt and she is agreeable to discharge plan. Pt nurse and dinorah ya updated on picking tech time. Disposition: [facility] Ya, intermediate level of care ARUN Cueto Original Note: Social Work Pt was denied precert for SNF by insurance. Physician updated and feels it is appropriate for pt to return intermediate level of care. JEMMA met with pt dgt Jose David and updated. Jose David agreeable for pt to return to [facility] private pay. Dinorah Ya updated that peer to peer will not be completed and pt may come this evening or over the weekend. Plan: [facility] Ya, intermediate level of care, when medically ready ARUN Mendosa
[2023-03-19 16:19] LABS: Anion Gap 1 (5-15); BUN 36 mg/dL (7-18); BUN/Creat Ratio 27.7 RATIO (10-20); Calcium,Total 9.9 mg/dL (8.5-10.1); Chloride 119 mmol/L (98-107); EST Glomerular Filtration Rate 56 mL/min (>60); Est Glom Filt Rate - Afr Amer 67 mL/min (>60); Estimated Creatinine Clearance 42.64 ml/min; Glucose 105 mg/dL (74-106); Potassium 4.4 mmol/L (3.5-5.1); Sodium Level 144 mmol/L (136-145)
--- NOTE | 2023-03-19 16:43 | TREXTCAR_ITS ---
Diet Diet Order/Speech Therapy: 03/17/23 17:18 Diet: Regular - General Type of Dietary Supplement:: [place] Breakfast Is pt able to select menu?: No Diet Comments: applesauce and yogurt Q tray; 240ml ensure plus TID Q meal Routine Orders/Code Status Code Status: DNRCC-A (no intubation) Therapies Weight Bearing: Full weight bearing Physical Therapy: Eval and Treat Occupational Therapy: Eval and Treat Problem/Diagnosis (1) Sepsis: Status: Acute Code(s): A41.9 - Sepsis, unspecified organism Plan 1. Acute sepsis secondary to urinary tract infection-exact bacterial etiology unknown at this point,patient will be placed on oral antibiotics for five days #2 acute kidney injury on a backdrop of chronic kidney disease stage IIIb- patient's BMP will be repeated tomorrow #3 dementia-complicates care, medical course, recovery, and prognosis, patient will need [facility] at the time of discharge from the hospital here. Patient is on Aricept #4 chronic interstitial lung disease-complicates care, medical course, recovery, and prognosis #5 hypothyroidism-patient will remain on Synthroid #6 chronic severe protein and caloric malnutrition in the context of chronic disease and debility related to inadequate oral intake as evidenced by weight loss of approximately 10% x 1 month and p.o. meeting less than 50% of the estimated nutritional needs times past 1 to 2 months - 240 mL of Ensure Plus high-protein 3 times daily with meals were added to the patient's diet, diet was liberalized to regular. I increased the patient's Remeron to 30 mg at bedtime #7 hyperlipidemia-patient is on Lipitor #8 atherosclerotic heart disease-patient is currently on Lipitor, Plavix, and aspirin #9 BPH-patient is on Flomax and Proscar #10 essential hypertension-due to the patient's low blood pressure, blood pressure medications being held at this time Total clinical time spent by myself addressing the patient's medical issues, reviewing all of the data, and collaborating with patient's care team: 37 minutes Allergies/Procedures Done in Hospital Allergies cat dander [cats] Allergy (Verified 03/16/23 21:12) Rash hyoscyamine [Hyoscyamine] Allergy (Verified 03/16/23 21:12) Other metronidazole Allergy (Verified 03/16/23 21:12) Unknown Seasonal Allergies: Uncoded [environmental] Allergy (Verified 03/16/23 21:12) PT UNSURE OF REACTION sesame oil Allergy (Verified 03/16/23 21:12) Other Sulfa (Sulfonamide Antibiotics) Allergy (Verified 03/16/23 21:12) Other sulfamethoxazole [From Bactrim] Allergy (Verified 03/16/23 21:12) Other tree nut [Tree Nut] Allergy (Verified 03/16/23 21:12) Other trimethoprim [From Bactrim] Allergy (Verified 03/16/23 21:12) Other Procedures: None Type of Care/Length of Stay Estimated LOS: More Than 30 Days Type of Care Needed: Intermediate Rehab Potential: Fair Prognosis: Fair Additional Orders/Day of Discharge H&P will serve as current which was dated: 03/17/23 Day of Discharge: 03/19/23 Dietary and Speech Recommendations Dietitian Recommendations/Changes: Given signs/symptoms of malnutrition, will liberalize diet to Regular and encourage PO as tolerated. Will add 240 ml Ensure Plus high protein TID w/ meals; adjust ONS as needed. Consider enteral nutrition support to prevent further energy depletion/weight decline. Speech Linguistic Eval Summary: BCRS (Brief Cognitive Rating Scale) completed to assess concerns for cognitive decline. Patient assessed in 5 domains: Concentration, Memory, Long-Term Memory, Orientation, and ADLs. Patient reported no concerns for memory or word finding. Concentration: Patient able to subtract serial 4s from 40. Patient experiencing difficulty with subtraction of serial 7s from 100, discontinued task after subtraction of serial 7 after 2 responses (93, 86). Recent Memory: Patient able to approximate current weather when given the season (i.e., spring- rainy); however, unable to recall current president. Long-term Memory: Patient able to recall place of residence as a child ([place]), place of residence after moving ([place], [place]), and recalled going to an elementary school in [place]. Patient unable to recall name of elementary school, but able to recall name of college he went to, and approximate years experience in career, post-graduation. Orientation: Patient oriented to full name, , season, and building ([facility]). Patient not oriented to the month (February), year (2022), or place ([facility]). ADLs: Patient requires assistance in all activities of daily living. Verbal Expression: Divergent Lists: When given 60 seconds to complete divergent naming tasks, pt was able to name 7 animals. Patient participated in 60 second speech sample with 6.7 words per utterance and 7/74 (9%) words being unintelligible. From BCRS determined GDS (Global Deterioration Scale) level. Patient achieved GDS stage 5 (5.4), indicating moderate-severe cognitive decline. This is an indicator that patient will have severely decreased ability for new learning, decreased attention/concentration, and decreased problem solving. Pt will benefit from visual and tactile cues to maximize performance with this level of impairment. Of note, patient in pain throughout evaluation, moaning and grimacing in pain. RN aware of pt complaints. Recommended patient for speech therapy to address moderate-severe deficits in orientation, problem solving (safety awareness), word finding, and ADLs. Additionally will recommend speech therapy to address mild deficits in speech to increase speech clarity. Supervised, reviewed, and approved by Fern Block M.A. [facility]. Discharge Plan Admission Admit Date/Time: 03/17/23 02:13 Primary Reason for Your Visit: sepsis, UTI Attending Provider: Kevin Mcdaniel Primary Care Provider: Samir Alvarado Consulting Providers: Bryson Oleary ; Kenan Mari Discharge Orders/Prescriptions Prescriptions: New nystatin 100,000 unit/gram Ointment 1 applic topical BID Qty: 0 0RF Protocol: *Topical Application Instructions APPLICATION INSTRUCTIONS: apply to groin and buttocks Rx Instructions: apply to affected areas mirtazapine 15 mg Tablet 30 mg PO QHS Qty: 0 0RF cefdinir 300 mg capsule 300 mg PO BID Qty: 11 0RF Rx Instructions: one twice a day starting the evening of 03/19/23 Continued nitroglycerin 0.4 mg tablet, sublingual 0.4 mg SUBLINGUAL Q5M PRN (Reason: Chest Pain) Qty: 25 3RF pravastatin 40 mg tablet 40 mg PO QHS ofloxacin 0.3 % drops See Rx Instructions ophthalmic (eye) .COMPLEX Rx Instructions: put 1-2 drps into affected eye(s) every 2-4 h x 2 days, then 1-2 drps 4 times/day days 3-7 ophthalmic (eye) vitamins A,C,T-ggth-ahagtq 7,160 unit- 113 mg-100 unit tablet 1 tab PO ONCE Rx Instructions: administer with AM and PM meals allopurinol 300 MG tablet 300 mg PO DAILY Label Comments: GOUT clopidogrel 75 MG tablet 75 mg PO DAILY Hold Instructions: GI Bleed Label Comments: ANTIPLATELET aspirin 81 MG tablet,chewable 81 mg PO DAILY@0800 Hold Instructions: GI Bleed Label Comments: BLOOD THINNER/HEART loratadine 10 MG tablet 10 mg PO DAILY Label Comments: ALLERGIES omega-3 fatty acids-fish oil 1 EACH capsule 1 ea PO DAILY Label Comments: SUPPLEMENT multivitamin with folic acid 1 TABLET tablet 1 tab PO DAILY Label Comments: VITAMIN lisinopril 20 mg tablet 10 mg PO DAILY Label Comments: BLOOD PRESSURE levothyroxine 150 mcg tablet 200 mcg PO DAILY Label Comments: THYROID polyethylene glycol 3350 17 GM packet 17 g PO DAILY PRN (Reason: Constipation) donepezil 10 MG tablet 10 mg PO QHS vit A,C and P-wgnjcf-cdyjqpew 1 EACH tablet 1 ea PO DAILY tamsulosin 0.4 MG capsule 0.4 mg PO DAILY finasteride 5 MG tablet 5 mg PO DAILY acetaminophen 325 mg Tablet 650 mg PO Q4H PRN PRN (Reason: Fever, pain 1-08/31) Qty: 0 0RF trazodone 50 mg Tablet 50 mg PO QHS Qty: 0 0RF atorvastatin 10 mg Tablet 10 mg PO QHS pantoprazole [Protonix] 40 mg Tablet,Delayed Release (Dr/Ec) 40 mg PO BID Discontinued mirtazapine 7.5 mg Tablet 7.5 mg PO QHS Referrals / Follow Up: Samir Alvarado MD [Primary Care Provider] - Disposition Disposition (needs filled in before D/C Order can be placed): Jail Facility
--- NOTE | 2023-03-19 16:52 | DS.PCM_ITS ---
Providers Date of Admission: 03/17/23 Date of Discharge: 03/19/23 Primary Care Physician: Dr. Samir Alvarado MD Consultations 03/17/23 03:37 Consult: [employer] Helper / Pulmonary Medicine Routine Consulting Provider: Kenan Mari Reason for Consult: Sepsis EMERGENT Consult: No MD Notified: Yes Date Notified: 03/17/23 Time Notified: 02:31 Method of Notification: Text Reason For Visit: SEPSIS Diagnosis Discharge Diagnosis (1) Sepsis: Status: Acute Code(s): A41.9 - Sepsis, unspecified organism Plan 1. Acute sepsis secondary to urinary tract infection-exact bacterial etiology unknown at this point,patient will be placed on oral antibiotics for five days #2 acute kidney injury on a backdrop of chronic kidney disease stage IIIb- patient's BMP will be repeated tomorrow #3 dementia-complicates care, medical course, recovery, and prognosis, patient will need to return to his correction facility at the time of discharge from the hospital here. Patient is on Aricept #4 chronic interstitial lung disease-complicates care, medical course, recovery, and prognosis #5 hypothyroidism-patient will remain on Synthroid #6 chronic severe protein and caloric malnutrition in the context of chronic disease and debility related to inadequate oral intake as evidenced by weight loss of approximately 10% x 1 month and p.o. meeting less than 50% of the estimated nutritional needs times past 1 to 2 months - 240 mL of Ensure Plus high-protein 3 times daily with meals were added to the patient's diet, diet was liberalized to regular. I increased the patient's Remeron to 30 mg at bedtime #7 hyperlipidemia-patient is on Lipitor #8 atherosclerotic heart disease-patient is currently on Lipitor, Plavix, and aspirin #9 BPH-patient is on Flomax and Proscar #10 essential hypertension-due to the patient's low blood pressure, blood pressure medications being held at this time Total clinical time spent by myself addressing the patient's medical issues, reviewing all of the data, and collaborating with patient's care team: 37 minutes Medications at Discharge Home Medications allopurinol 300 mg tablet 300 mg PO DAILY GOUT 04/30/14 aspirin 81 mg chewable tablet 81 mg PO DAILY@0800 HEART 04/30/14 clopidogrel 75 mg tablet 75 mg PO DAILY ANTIPLATLET 04/30/14 loratadine 10 mg tablet 10 mg PO DAILY ALLGIES 04/30/14 multivitamin with folic acid 400 mcg tablet 1 tab PO DAILY SUPPLEMENT 04/30/14 omega-3 fatty acids-fish oil 340 mg-1,000 mg capsule 1 ea PO DAILY SUPPLEMENT 04/30/14 donepezil 10 mg tablet 10 mg PO QHS MEMORY 02/17/18 polyethylene glycol 3350 17 gram oral powder packet 17 g PO DAILY PRN Constipation 02/17/18 vit A 300 mcg-C 200 mg-E 27 mg-lutein 2 mg and minerals tablet 1 ea PO DAILY SUPPLEMENT 02/17/18 lisinopril 20 mg tablet 10 mg PO DAILY BLOOD PRESSURE 03/15/18 finasteride 5 mg tablet 5 mg PO DAILY urination 01/24/20 tamsulosin 0.4 mg capsule 0.4 mg PO DAILY urination 01/24/20 nitroglycerin 0.4 mg sublingual tablet 0.4 mg sublingual Q5M PRN Chest Pain #25 tabs 01/13/21 pravastatin 40 mg tablet 40 mg PO QHS Check with primary doctor 09/22/21 ofloxacin 0.3 % eye drops See Rx Instructions ophthalmic (eye) .COMPLEX 03/11/22 vitamins A,C,L-jzxg-qltjdi 2,148 mcg-113 mg-45 mg-17.4 mg tablet 1 tab PO ONCE 03/11/22 levothyroxine 150 mcg tablet 200 mcg PO DAILY thyroid 09/09/22 acetaminophen 325 mg tablet 650 mg PO Q4H PRN PRN Fever, pain 1-08/31 #0 tabs 02/19/23 trazodone 50 mg tablet 50 mg PO QHS #0 tabs 02/19/23 atorvastatin 10 mg tablet 10 mg PO QHS 03/17/23 pantoprazole 40 mg tablet,delayed release (Protonix) 40 mg PO BID 03/17/23 cefdinir 300 mg capsule 300 mg PO BID #11 caps 03/19/23 mirtazapine 15 mg tablet 30 mg PO QHS #0 tabs 03/19/23 nystatin 100,000 unit/gram topical ointment 1 applic topical BID #0 grams 03/19/23 Hospital Course Operations None Procedures None Summary of Care Provided Minutes Spent on Discharge: 32 Hospital Course: This 87-year-old white male was seen in the emergency room at [facility] improved brought in from a group home secondary to generalized weakness and poor intake. Work-up in the emergency room revealed the patient to be hypotensive, his temperature was 100.3, patient's white count was elevated at 19.6, patient's creatinine was elevated at 3.49 and BUN was 75. Patient's urinalysis was abnormal indicating a urinary tract infection. Patient was initially admitted to ICU due to low blood pressure, he was given IV fluids, blood pressure improved and he was placed on IV antibiotics. Patient was seen by PT and OT, urine culture grew out mixed organisms, blood culture had no growth. Patient was not approved for skilled care at a nursing facility by his insurance, he had to return to the group home where he was living as an intermediate care patient. Patient's lab improved during his hospital stay, I had conversation with patient's daughter who was his POA. On 03/19/2023, patient was seen and examined:alert and no apparent distress Constitutional Narrative: Patient exhibits moderate to severe confusion, he is directable at times General Appearance: cooperative, well kempt and well developed Orientation / Consciousness: awake HEENT normocephalic, head/scalp atraumatic and moist oral mucous membranes Eyes PERRL, EOMs intact bilaterally and conjunctivae normal Neck supple, no JVD, thyroid normal and no carotid bruits General: trachea midline Resp normal respiratory effort, no retractions, no use of accessory muscles and clear to auscultation bilaterally Auscultation: Negative for rales, rhonchi or wheezes Cardio regular rate, regular rhythm, S1 normal heart sound, S2 normal heart sound, no murmurs, no rub and no gallops GI normal to inspection, nondistended, normoactive bowel sounds, soft to palpation, non-tender and non-distended Extremity no clubbing, cyanosis or edema Skin no rashes or lesions noted General Skin Exam: no breakdown Neuro CN's II-XII intact bilaterally, moves all extremities, no focal motor deficits and no sensory deficits noted Neuro Narrative: Patient is alert but confused Sensorium / Orientation: awake and alert Psych Psych Narrative: Patient is alert but confused Patient was discharged to a correction facility in stable condition on 03/19/2023 Medical Records Data Medical Nutrition Assessment Dietitian: Malnutrition Criteria Met Start: 03/17/23 17:32 Freq: Status: Active Protocol: Document 03/17/23 17:32 RMA (Rec: 03/17/23 17:32 RMA [id number]) Nutrition Malnutrition Evidence of Malnutrition Exists Yes Malnutrition (severe): Chronic Evidenced By Suboptimal Energy Intake ( Severe),Weight Loss (Severe) Clinical Problem Chronic Disease or Condition Related Malnutrition Etiology Severe protein-calorie malnutrition in the context of chronic disease and debility related to inadequate oral intake Signs/Symptoms as evidenced by weight loss ~ 10% x 1 month and PO meeting less than 50% estimated nutrition needs x past 1-2 month Status Active Problem Recommendation Dietitian Recommendations/Changes Given signs/symptoms of malnutrition, will liberalize diet to Regular and encourage PO as tolerated. Will add 240 ml Ensure Plus high protein TID w/ meals; adjust ONS as needed. Consider enteral nutrition support to prevent further energy depletion/weight decline. Weight / BMI Weight Weight: 75.6 kg Body Mass Index (BMI) 23.2 ABG / Lab / Microbiology Data Result Diagrams: 03/19/23 15:50 03/19/23 15:50 Laboratory: Laboratory Results - last 24 hr 03/19/23 15:50: WBC 8.0, RBC 3.89 L, Hgb 11.7 L, Hct 37.3 L, MCV 95.9 H, MCH 30.1, MCHC 31.4 L, RDW Std Deviation 48.5 H, RDW Coeff of Priya 13.8, Plt Count 156, MPV 10.2, Immature Gran % (Auto) 0.300, Neut % (Auto) 72.1 H, Lymph % (Auto) 12.4 L, O[place]ley % (Auto) 8.5, Eos % (Auto) 6.4 H, Baso % (Auto) 0.3, Absolute Neuts (auto) 5.8, Absolute Lymphs (auto) 0.99, Nucleated RBC % 0 03/19/23 15:50: Sodium 144, Potassium 4.4, Chloride 119 H, Carbon Dioxide 24.0, Anion Gap 1 L, BUN 36 H, Creatinine 1.30, Estim Creat Clear Calc 42.64, Est GFR (MDRD) Af Amer 67, Est GFR (MDRD) Non-Af 56 L, BUN/Creatinine Ratio 27.7 H, Glucose 105, Calcium 9.9 Microbiology: Microbiology 03/17/23 00:30 Blood Culture (Wb) - Anticubital Right Blood Culture - Preliminary No growth in 48 hours. 03/17/23 00:10 Blood Culture (Wb) - Anticubital Right Blood Culture - Preliminary No growth in 48 hours. 03/16/23 23:44 Urine, Clean Catch Urine Culture - Final Mixed Gram Positive Organisms Meaningful Use Info Meaningful Use Diagnoses (Choose all that apply): None applicable Discharge Plan Admission Admit Date/Time: 03/17/23 02:13 Primary Reason for Your Visit: sepsis, UTI Attending Provider: Kevin Mcdaniel Primary Care Provider: Samir Alvarado Consulting Providers: Bryson Oleary ; Kenan Mari Discharge Orders/Prescriptions Prescriptions: New nystatin 100,000 unit/gram Ointment 1 applic topical BID Qty: 0 0RF Protocol: *Topical Application Instructions APPLICATION INSTRUCTIONS: apply to groin and buttocks Rx Instructions: apply to affected areas mirtazapine 15 mg Tablet 30 mg PO QHS Qty: 0 0RF cefdinir 300 mg capsule 300 mg PO BID Qty: 11 0RF Rx Instructions: one twice a day starting the evening of 03/19/23 Continued nitroglycerin 0.4 mg tablet, sublingual 0.4 mg SUBLINGUAL Q5M PRN (Reason: Chest Pain) Qty: 25 3RF pravastatin 40 mg tablet 40 mg PO QHS ofloxacin 0.3 % drops See Rx Instructions ophthalmic (eye) .COMPLEX Rx Instructions: put 1-2 drps into affected eye(s) every 2-4 h x 2 days, then 1-2 drps 4 times/day days 3-7 ophthalmic (eye) vitamins A,C,L-tyvp-qyshvh 7,160 unit- 113 mg-100 unit tablet 1 tab PO ONCE Rx Instructions: administer with AM and PM meals allopurinol 300 MG tablet 300 mg PO DAILY Label Comments: GOUT clopidogrel 75 MG tablet 75 mg PO DAILY Hold Instructions: GI Bleed Label Comments: ANTIPLATELET aspirin 81 MG tablet,chewable 81 mg PO DAILY@0800 Hold Instructions: GI Bleed Label Comments: BLOOD THINNER/HEART loratadine 10 MG tablet 10 mg PO DAILY Label Comments: ALLERGIES omega-3 fatty acids-fish oil 1 EACH capsule 1 ea PO DAILY Label Comments: SUPPLEMENT multivitamin with folic acid 1 TABLET tablet 1 tab PO DAILY Label Comments: VITAMIN lisinopril 20 mg tablet 10 mg PO DAILY Label Comments: BLOOD PRESSURE levothyroxine 150 mcg tablet 200 mcg PO DAILY Label Comments: THYROID polyethylene glycol 3350 17 GM packet 17 g PO DAILY PRN (Reason: Constipation) donepezil 10 MG tablet 10 mg PO QHS vit A,C and H-vandfg-fjmmrlsj 1 EACH tablet 1 ea PO DAILY tamsulosin 0.4 MG capsule 0.4 mg PO DAILY finasteride 5 MG tablet 5 mg PO DAILY acetaminophen 325 mg Tablet 650 mg PO Q4H PRN PRN (Reason: Fever, pain -08/31) Qty: 0 0RF trazodone 50 mg Tablet 50 mg PO QHS Qty: 0 0RF atorvastatin 10 mg Tablet 10 mg PO QHS pantoprazole [Protonix] 40 mg Tablet,Delayed Release (Dr/Ec) 40 mg PO BID Discontinued mirtazapine 7.5 mg Tablet 7.5 mg PO QHS Referrals / Follow Up: Samir Alvarado MD [Primary Care Provider] - Disposition Disposition (needs filled in before D/C Order can be placed): Alf Facility Charges/Coding Visit Charges Inpatient E&M: 76309 Disch Hosp >30min
--- NOTE | 2023-03-19 18:05 | NURSING ---
Called report to Sylvia at [phone] [facility]. She was requesting that we keep [place] in so she can just pull it in am and do better voiding trials with him tomorrow. Per Dr. Puri that is fine to send him with [place]. Pt will be picked up at 19:30.
[2023-03-19] MEDS: Mirtazapine 15 MG Tablet PO (21:26)
[2023-03-19] MEDS: Atorvastatin Calcium 10 MG Tablet PO (21:26)
[2023-03-19] MEDS: traZODone 50 MG Tablet PO (21:26)
[2023-03-19 21:50] VITALS: BP 142/71; PULSE 58; RESP 17; TEMP 36.9; O2SAT 94
== END 2023-03-20 02:06 | disposition skilled nursing facility (03) | DRG 871 ==
LOC: ED 03-17 01:35 → ICU 03-17 03:08 → MS3 03-17 16:13
PROVIDERS: Internal Medicine Critical Care Medicine; Admitting Provider Hospitalist; Emergency Provider Emergency Medicine; PCP Internal Medicine; Visit Provider Internal Medicine
DX: A41.9 Sepsis, unspecified organism (principal); E43 Unspecified severe protein-calorie malnutrition; E87.20 Acidosis, unspecified; F03.918 Unspecified dementia, unspecified severity, with other behavioral disturbance; N17.9 Acute kidney failure, unspecified; J84.9 Interstitial pulmonary disease, unspecified; N39.0 Urinary tract infection, site not specified; E87.8 Other disorders of electrolyte and fluid balance, not elsewhere classified; N18.32 Chronic kidney disease, stage 3b; I25.10 Atherosclerotic heart disease of native coronary artery without angina pectoris; E78.00 Pure hypercholesterolemia, unspecified; K62.89 Other specified diseases of anus and rectum; I12.9 Hypertensive chronic kidney disease with stage 1 through stage 4 chronic kidney disease, or unspecified chronic kidney disease; E78.5 Hyperlipidemia, unspecified; E03.9 Hypothyroidism, unspecified; Z95.5 Presence of coronary angioplasty implant and graft; R62.7 Adult failure to thrive; R33.9 Retention of urine, unspecified; N25.89 Other disorders resulting from impaired renal tubular function; Z79.82 Long term (current) use of aspirin; Z79.02 Long term (current) use of antithrombotics/antiplatelets; R53.81 Other malaise; Z66 Do not resuscitate; N40.0 Benign prostatic hyperplasia without lower urinary tract symptoms; Z68.23 Body mass index [BMI] 23.0-23.9, adult
CPT/HCPCS: 36415; 51702; 71045; 74176; 80048; 81001; 83605; 83735; 84443; 85025; 87040; 87086; 87088; 87811; 92523; 97162; 97166; 97535; 99285; J7030; J7050; A4216; J0295

== ENCOUNTER → 2023-03-22 | Outpatient (REF) | payer MEDICARE, SELFPAY ==
[2023-03-22 07:43] LABS: Absolute Lymphocyte Count 1.16 X10^3/uL (0.83-4.51); Basophil# 0.04 X10^3/uL; Basophil% 0.4 % (0-1); Eosinophil# 0.42 X10^3/uL; Eosinophils% 4.4 % (0-5); Hematocrit 35.7 % (40-54); Hemoglobin 11.4 g/dL (13.0-16.5); Lymphocyte # 1.16 X10^3/ul (0.83-4.51); Lymphocyte % 12.2 % (19-41); Mean Corp Hgb Conc 31.9 g/dL (32-36); Mean Corpuscular Hgb 30.7 pg (27.0-32.0); Mean Corpuscular Volume 96.2 fL (80-94); Mean Platelet Vol. 10.3 fl (6.2-12.0); Monocyte# 0.88 X10^3/uL; Monocyte% 9.3 % (0-10); NRBC Flagged by Analyzer 0 % (0-5); Neutrophil # 6.98 X10^3/uL (2.7-7.7); Neutrophil % 73.4 % (47-70); Platelet Count 200 K/mm3 (150-450); RBC Distribution Width CV 13.8 % (11.6-14.6); RBC Distribution Width SD 48.1 fl (35.1-43.9); Red Blood Count 3.71 M/mm3 (4.6-6.2); White Blood Count 9.5 K/mm3 (4.4-11.0)
[2023-03-22 07:48] LABS: Anion Gap 2 (5-15); BUN 29 mg/dL (7-18); BUN/Creat Ratio 21.2 RATIO (10-20); Chloride 115 mmol/L (98-107); Creatinine, Serum 1.37 mg/dL (0.70-1.30); EST Glomerular Filtration Rate 52 mL/min (>60); Est Glom Filt Rate - Afr Amer 63 mL/min (>60); Glucose 105 mg/dL (74-106); Potassium 4.1 mmol/L (3.5-5.1); Sodium Level 144 mmol/L (136-145)
== END ==
LOC: OLS.WHLTCC 05:00
PROVIDERS: PCP Internal Medicine; Visit Provider Internal Medicine
DX: E78.5 Hyperlipidemia, unspecified (principal); N17.9 Acute kidney failure, unspecified; A41.9 Sepsis, unspecified organism; N39.0 Urinary tract infection, site not specified; M62.81 Muscle weakness (generalized); R26.2 Difficulty in walking, not elsewhere classified
CPT/HCPCS: 36415; 80048; 85025

== ENCOUNTER → 2023-03-29 | Outpatient (REF) | payer MEDICARE, SELFPAY ==
[2023-03-29 09:55] LABS: Absolute Lymphocyte Count 1.61 X10^3/uL (0.83-4.51); Absolute Neutrophil Count 6.2 X10^3/uL (2.0-7.7); Basophil# 0.05 X10^3/uL; Basophil% 0.6 % (0-1); Eosinophil# 0.37 X10^3/uL; Eosinophils% 4.1 % (0-5); Hematocrit 36.2 % (40-54); Hemoglobin 11.5 g/dL (13.0-16.5); Lymphocyte # 1.61 X10^3/ul (0.83-4.51); Mean Corp Hgb Conc 31.8 g/dL (32-36); Mean Corpuscular Hgb 30.1 pg (27.0-32.0); Mean Corpuscular Volume 94.8 fL (80-94); Mean Platelet Vol. 10.2 fl (6.2-12.0); Monocyte# 0.76 X10^3/uL; Monocyte% 8.5 % (0-10); NRBC Flagged by Analyzer 0 % (0-5); Neutrophil # 6.15 X10^3/uL (2.7-7.7); Neutrophil % 68.6 % (47-70); Platelet Count 228 K/mm3 (150-450); RBC Distribution Width CV 14.4 % (11.6-14.6); RBC Distribution Width SD 49.2 fl (35.1-43.9); Red Blood Count 3.82 M/mm3 (4.6-6.2)
[2023-03-29 10:17] LABS: Anion Gap 5 (5-15); BUN 26 mg/dL (7-18); BUN/Creat Ratio 18.7 RATIO (10-20); Calcium,Total 9.9 mg/dL (8.5-10.1); Chloride 111 mmol/L (98-107); Creatinine, Serum 1.39 mg/dL (0.70-1.30); EST Glomerular Filtration Rate 51 mL/min (>60); Est Glom Filt Rate - Afr Amer 62 mL/min (>60); Glucose 113 mg/dL (74-106); Potassium 3.7 mmol/L (3.5-5.1); Sodium Level 143 mmol/L (136-145)
== END ==
LOC: OLS.WHLTSB 04:00
PROVIDERS: PCP Internal Medicine; Referring Provider Internal Medicine; Visit Provider Internal Medicine
DX: I25.10 Atherosclerotic heart disease of native coronary artery without angina pectoris (principal); F03.918 Unspecified dementia, unspecified severity, with other behavioral disturbance; K29.51 Unspecified chronic gastritis with bleeding; K52.9 Noninfective gastroenteritis and colitis, unspecified; K59.00 Constipation, unspecified
CPT/HCPCS: 36415; 80048; 85025